=== PATIENT | male | born 1970 | race Caucasian/White ===

== ENCOUNTER 2017-04-28 10:29 | Emergency (ER) | payer OTHER ==
[~2017-04-28] VITALS: Ht 157.5 cm; Wt 54.0 kg
[~2017-04-28 10:29] MED LIST: ALBUTEROL SULF8.5 GM INH; ASACOL HD800 MG PO; ASMANEX220 MC1 IH; BENTYL10 MG PO; CITALOPRAM HBR40 MG PO; DICYCLOMINE HCL20 MG PO; FLUTICASONE PRO16 GM NAS; HYDROCODON-ACE1 EAC8 PO; LEVOTHYROXINE100 MCG PO; LEVOTHYROXINE125 MCG PO; LEVOTHYROXINE175 MCG PO; LEVOTHYROXINE200 MCG PO; LIALDA1.2 GM PO; LISINOPRIL-HCT1 EAC1 PO; MEDROL4 M1 PO; MONTELUKAST SOD10 MG PO; NAPROSYN500 MG PO; NORCO 10-325 T1 EACH PO; NORCO 5-325 TA1 EACH PO; OMEPRAZOLE20 MG PO; ONDANSETRON ODT8 MG PO; PERCOCET 10-321 EACH PO; PERCOCET 5-3251 EACH PO; PHENERGAN25 MG/1 M1 PO; PREDNISONE10 MG PO; PREDNISONE20 MG; PREDNISONE20 MG PO; PRILOSEC20 MG PO; PROMETHAZINE HC25 M1 PO; PROMETHAZINE HC25 MG PR; PROVENTIL HFA6.7 GM INH; ROPINIROLE HCL1 MG PO; SINGULAIR10 MG PO; SULFASALAZINE500 MG PO; SULFAZINE500 MG PO; SYMBICORT 80-10.2 GM INH; VALIUM2 MG PO; ZOFRAN ODT4 MG PO; ZOFRAN ODT4 MG SL; ZOFRAN ODT8 MG PO; ZOFRAN4 MG PO
[2017-04-28] MEDS ORDERED: PREDNISONE20 MG PO (13:48)
== END 2017-04-28 14:18 | disposition home or self-care (01) ==
LOC: ED 10:29
DX: K50.90 Crohn's disease, unspecified, without complications (principal); E03.9 Hypothyroidism, unspecified; J45.909 Unspecified asthma, uncomplicated; F41.9 Anxiety disorder, unspecified; Z90.49 Acquired absence of other specified parts of digestive tract; Z93.3 Colostomy status; Z88.5 Allergy status to narcotic agent; Z88.6 Allergy status to analgesic agent; Z79.899 Other long term (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
CPT/HCPCS: 80053; 81001; 83690; 85025; 96361; 96374; 96375; 99283; J1170; J2405; J2930; J7030

== ENCOUNTER 2017-06-18 08:29 | Emergency (ER) | payer OTHER ==
[~2017-06-18] VITALS: Ht 157.5 cm; Wt 54.0 kg
[2017-06-18] MEDS ORDERED: PREDNISONE20 MG PO (09:10)
[2017-06-18] MEDS ORDERED: PROMETHAZINE HC25 M1 PO (10:44)
[2017-06-18] MEDS ORDERED: ONDANSETRON ODT8 MG PO (10:44)
== END 2017-06-18 11:03 | disposition home or self-care (01) ==
LOC: ED 08:29
DX: K50.90 Crohn's disease, unspecified, without complications (principal); E03.9 Hypothyroidism, unspecified; J45.909 Unspecified asthma, uncomplicated; F41.9 Anxiety disorder, unspecified; Z90.49 Acquired absence of other specified parts of digestive tract; Z88.5 Allergy status to narcotic agent; Z88.6 Allergy status to analgesic agent; Z79.899 Other long term (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
CPT/HCPCS: 99283; J7512

== ENCOUNTER 2017-09-05 11:53 | Emergency (ER) | payer OTHER ==
[~2017-09-05] VITALS: Ht 157.5 cm; Wt 56.2 kg
[2017-09-05] MEDS ORDERED: METHYLPREDNISOLO4 M1 PO (13:37)
== END 2017-09-05 13:47 | disposition home or self-care (01) ==
LOC: ED 11:53
DX: K50.90 Crohn's disease, unspecified, without complications (principal); J45.909 Unspecified asthma, uncomplicated; E03.9 Hypothyroidism, unspecified; F41.9 Anxiety disorder, unspecified; Z87.891 Personal history of nicotine dependence; Z90.49 Acquired absence of other specified parts of digestive tract; Z88.5 Allergy status to narcotic agent; Z79.899 Other long term (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
CPT/HCPCS: 80053; 81001; 85025; 96361; 96374; 96375; 99283; J1170; J7030

== ENCOUNTER 2017-11-02 09:15 | Emergency (ER) | payer OTHER ==
[~2017-11-02] VITALS: Ht 157.5 cm; Wt 56.2 kg
[~2017-11-02 09:15] MED LIST changes: +METHYLPREDNISOLO4 M1 PO
[2017-11-02] MEDS ORDERED: BACTRIM DS TAB1 EACH PO (10:28)
[2017-11-02] MEDS ORDERED: METHYLPREDNISOLO4 M1 PO (10:28)
[2017-11-02] MEDS ORDERED: NORCO 10-325 T1 EACH PO (10:28)
== END 2017-11-02 11:13 | disposition home or self-care (01) ==
LOC: ED 09:15
DX: K50.90 Crohn's disease, unspecified, without complications (principal); E03.9 Hypothyroidism, unspecified; J45.909 Unspecified asthma, uncomplicated; F41.9 Anxiety disorder, unspecified; Z87.891 Personal history of nicotine dependence; Z88.6 Allergy status to analgesic agent; Z88.5 Allergy status to narcotic agent; Z79.899 Other long term (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
CPT/HCPCS: 80053; 81001; 85025; 96361; 96374; 96375; 99283; J1170; J2405; J2930; J7030

== ENCOUNTER 2018-01-12 06:11 | Emergency (ER) | payer OTHER ==
[~2018-01-12] VITALS: Ht 157.5 cm; Wt 54.4 kg
--- OUTSIDE RECORDS SUMMARY | ~2018-01-12 | XMS | Clinical Summary ---
Demographics + + + | Address | [address] | | | [place] [address] | + + + | Home Phone | | + + + | Preferred Language | Unknown | + + + | Marital Status | Single | + + + | Jain Affiliation | CHR | + + + | Race | White | + + + | Ethnic Group | Not or | + + + Author + + + | Author | [facility] | + + + | Organization | [facility] | + + + | Address | Unknown | + + + | Phone | Unavailable | + + + Support + + +---------+ + | Name | Relationship | Address | Phone | + + +---------+ + | Thalia Armani | ECON | Unknown | | + + +---------+ + Care Team Providers + +------+ + | Care It Support Consultant Name | Role | Phone | + +------+ + | Meaghan Zhong MD | PP | | + +------+ + Source Comments PAT is fully live on both [facility] and [facility]3] Allergies + + + + + + | Active Allergy | Reactions | Severity | Noted | Comments | | | | | Date | | + + + + + + | Ketorolac | Unknown | | 05/14/20 | "hurt for 2 weeks | | | | | 15 | afterwards" | + + + + + + | Morphine | Nausea and Vomiting | | 05/14/20 | shaking | | | | | 15 | | + + + + + + Current Medications + + +--------+---------+------+------+-------+ | Prescription | Sig. | Disp. | Refills | Star | End | Statu | | | | | | t | Date | s | | | | | | Date | | | + + +--------+---------+------+------+-------+ | albuterol (PROAIR | 2 puffs inhaled | | | 05/29 | | Activ | | HFA) 90 | every 4 hours as | | | 4/20 | | e | | mcg/actuation | needed for shortness | | | 12 | | | | inhalation HFA | of breath | | | | | | | aerosol inhaler | | | | | | | + + +--------+---------+------+------+-------+ | levothyroxine | Take by mouth. | | | | | Activ | | (SYNTHROID) 125 mcg | | | | | | e | | oral tablet | | | | | | | + + +--------+---------+------+------+-------+ | CITALOPRAM 40 mg | Take 40 mg by mouth | | 0 | 06/0 | | Activ | | oral tablet | once daily. | | | 03/17 | | e | | | | | | 15 | | | + + +--------+---------+------+------+-------+ | LEVOTHYROXINE 200 | Take 200 mcg by | | 0 | 08/0 | | Activ | | mcg oral tablet | mouth once daily. | | | 01/15 | | e | | | | | | 15 | | | + + +--------+---------+------+------+-------+ | mesalamine 1.2 g | Take 6 tablets by | 180 | 3 | 11/2 | | Activ | | oral tablet,delayed | mouth once daily. | tablet | | 10/17 | | e | | release (/ОЛЬГА) | | | | 16 | | | + + +--------+---------+------+------+-------+ | omeprazole 20 mg | Take 20 mg by mouth | | | | | Activ | | oral capsule,delayed | once daily. | | | | | e | | release(DR/EC) | | | | | | | + + +--------+---------+------+------+-------+ | promethazine 25 mg | Take 25 mg by mouth | | | | | Activ | | oral tablet | four times daily as | | | | | e | | | needed for | | | | | | | | nausea/vomiting. | | | | | | + + +--------+---------+------+------+-------+ | rOPINIRole 1 mg | Take 1 mg by mouth. | | | | | Activ | | oral tablet | | | | | | e | + + +--------+---------+------+------+-------+ Active Problems + + + | Problem | Noted Date | + + + | Encounter for long-term (current) use of medications | 12/06/2015 | + + + | CD (Crohn's disease) ([facility]) | 05/14/2015 | + + + | Acid reflux | 05/14/2015 | + + + Resolved Problems + + + + | Problem | Noted | Resolved | | | Date | Date | + + + + | Encounter for long-term (current) use of steroids | 06/21/20 | | | | 14 | 6 | + + + + Family History + + +------+ + | Medical History | Relation | Name | Comments | + + +------+ + | Cancer | Father | | prostate cancer at age 62 | + + +------+ + | Asthma | Mother | | | + + +------+ + | Cancer | Mother | | colon cancer at age 62 | + + +------+ + | Stroke | Mother | | | + + +------+ + | Thyroid | Mother | | hypothyroid | + + +------+ + | GI | Other | | no Crohn's or ulcerative colitis | + + +------+ + + +------+--------+ + | Relation | Name | Status | Comments | + +------+--------+ + | Father | | | | + +------+--------+ + | Mother | | | | + +------+--------+ + | Other | | | | + +------+--------+ + Social History + + + +--------+------+ [...] + | Blood Pressure | 125/76 | 01/26/2017 3:17 PM PDT | + + + + | Pulse | 64 | 01/26/2017 3:17 PM PDT | + + + + | Temperature | 36.6 C (97.8 F) | 01/26/2017 3:17 PM PDT | + + + + | Respiratory Rate | 16 | 01/26/2017 3:17 PM PDT | + + + + | Oxygen Saturation | 96% | 12/06/2015 12:16 PM PST | + + + + | Inhaled Oxygen | - | - | | Concentration | | | + + + + | Weight | 56.3 kg (124 lb 3.2 | 01/26/2017 3:17 PM PDT | | | oz) | | + + + + | Height | 157.5 cm (5' 2") | 01/26/2017 3:17 PM PDT | + + + + | Body Mass Index | 22.72 | 01/26/2017 3:17 PM PDT | + + + + Plan of Treatment + + + + + | Health Maintenance | Due Date | Last Done | Comments | + + + + + | INFLUENZA VACCINE | | | | | (FLU SHOT) | 8 | | | + + + + + Results Not on filefrom Last 3 Months
--- OUTSIDE RECORDS SUMMARY | ~2018-01-12 | XMS | Clinical Summary ---
Demographics + + + | Address | [address] | | | [place] [address] | + + + | Home Phone [...] + + + | Author | [facility] [place] | | | and [place] | + + + | Organization | [facility] [place] [...] Providers + +------+ + | Care Manager Lvn Name | Role | Phone | + +------+ + | Emily Green DO | PP | Unavailable | + +------+ + Allergies + + [...] + + + Current Medications + + +---------+---------+------+------+-------+ | Prescription | Sig. | Disp. | Refills | Star | End | Statu | | | | | | t | Date | s | | | | | | Date | | | + + +---------+---------+------+------+-------+ | albuterol (PROAIR | 2 puffs inhaled | | | 05/29 | | Activ | | HFA) 90 mcg/puff | every 4 hours as | | | 01/15 | | e | | inhaler | needed for shortness | | | 12 | | | | | of breath | | | | | | + + +---------+---------+------+------+-------+ | levothyroxine | Take 300 mcg by | | | | | Activ | | (SYNTHROID) 125 mcg | mouth every morning | | | | | e | | tablet | (before breakfast). | | | | | | + + +---------+---------+------+------+-------+ | oxyCODONE | Take 10 mg by mouth | | | | | Activ | | (ROXICODONE) 5 mg | every 4 hours as | | | | | e | | tablet | needed for Pain. | | | | | | + + +---------+---------+------+------+-------+ | ondansetron | Take 8 mg by mouth | | | | | Activ | | (ZOFRAN ODT) 8 mg | every 8 hours as | | | | | e | | disintegrating | needed. | | | | | | | tablet | | | | | | | + + +---------+---------+------+------+-------+ | citalopram | Take 40 mg by mouth | | | | | Activ | | (CELEXA) 40 mg | Daily. | | | | | e | | tablet | | | | | | | + + +---------+---------+------+------+-------+ | mesalamine | Take 1,200 mg by | | | | | Activ | | (LIALDA) 1.2 G EC | mouth 2 times daily. | | | | | e | | tablet | | | | | | | + + +---------+---------+------+------+-------+ | rOPINIrole | Take 5 mg by mouth | | | | | Activ | | (REQUIP) 5 MG tablet | nightly. | | | | | e | + + +---------+---------+------+------+-------+ | omeprazole | Take 1 capsule by | 90 | 3 | 07/1 | 07/1 | Activ | | (PRILOSEC) 20 mg | mouth every morning | capsule | | 0/20 | 0/20 | e | | capsule | (before breakfast). 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 | 06/21/2014 [...] + + + + | Name | Dates Previously Given | Next Due | + + + + | INFLUENZA PF | 08/19/2016 | | | QUAD(PED/ADOL/ADULT) | | | | ,PSKT or VIAL | | | + + + + | INFLUENZA PF | 08/21/2008 | | | TRIVALENT(PED/ADOL/A | | | | DULT), PSKT | | | + + + + [...] | Blood Pressure | 98/70 | 12/10/2016 1305 PDT | + + + + | Pulse | 74 | 12/10/2016 1305 PDT | + + + + | Temperature | 36.4 C (97.5 F) | 04/09/2016 1031 PDT | + + + + | Respiratory Rate | 16 | 12/10/2016 1305 PDT | + + + + | Oxygen Saturation | 98% | 12/10/20161304 PDT | + + + + | Inhaled Oxygen | - | - | | Concentration | | | + + + + | Weight | 53.9 kg (118 lb 13.3 | 12/10/20161304 PDT | | | oz) | | + + + + | Height | 160 cm (5' 2.99") | 12/10/20161304 PDT | + + + + | Body Mass Index | 21.06 | 12/10/20161304 PDT | + + + + Plan of Treatment + + + + + | Health Maintenance | Due Date | Last Done | Comments | + + + + + | Vaccine: | | | | | Dtap/Tdap/Td (1 - | 9 | | | | Tdap) | | | | + + + + + | Vaccine: Influenza | | 08/19/2016, 08/14/2015, | | | (Season Ended) | 8 | 07/03/2015, Additional history | | | | | exists | | + + + + + | Vaccine: | Completed | 07/03/2015 | | | Pneumococcal 19-64 | | | | | (PPSV23 only) Medium | | | | | Risk | | | | + + + + + Results Not on filefrom Last 3 Months Insurance + +--------+ +--------+ +---------+ | Payer | Benefi | Subscriber | Type | Phone | Address | | | t Plan | ID | | | | | | / | | | | | | | Group | | | | | + +--------+ +--------+ +---------+ | [employer] | MODA | [phone] | Medica | [phone] | | MEDICAID HMO | HEALTH | | id | [id number] | | | | MDCD | | | | | | | [place]MO [place] | | | | | + +--------+ +--------+ +---------+ + +--------+ +--------+ + + | Guarantor Name | Accoun | Relation to | Date | Phone | Billing Address | | | t Type | Patient | of | | | | | | | | | | + +--------+ +--------+ + + | RACHID BANGURA | Person | Self [birth year] | Home: | [address] | | [place] | [place] | | 1971 | [phone] | [place] [address] | | | david | | | [phone] | | + +--------+ +--------+ + +
--- OUTSIDE RECORDS SUMMARY | ~2018-01-12 | XMS | Clinical Summary ---
Demographics + + + | Address | [address] | | | [place] [address] | + + + | Home Phone | | + + + | Preferred Language | Unknown | + + + | Marital Status | Single | + + + | Baptism Affiliation | 1013 | + + + | Race | Unknown | + + + | Ethnic Group | Unknown | + + + Author + + + | Author | [facility] [employer] | + + + | Organization | [facility] [employer] [facility] | + + + | Address | Unknown | + + + | Phone | Unavailable | + + + Support + + +---------+ + | Name | Relationship | Address | Phone | + + +---------+ + | Thalia Lomeli | ECON | Unknown | | + + +---------+ + Care Team Providers + +------+ + | Care Floor Hand Name | Role | Phone | + [...] +------+-------+ + | MEDICAID | [place] | xxxxxxxx | | | [address] | | | N | | | | [place] | | | [place] | | | | [phone] | | | FURNACE COMBUSTION ANALYST | | | | | + +--------+ [...] | Self | [birth year] | Home: | [address] [facility] [address] | | | [place] | | 1971 | [phone] | [place] [address] | | | david | | | [phone] | | + +--------+ +--------+ + +
--- OUTSIDE RECORDS SUMMARY | ~2018-01-12 | XMS | Clinical Summary ---
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
--- OUTSIDE RECORDS SUMMARY | ~2018-01-12 | XMS | Clinical Summary ---
Demographics + + + | Address | [address] | | | [place] [address] | + + + | Home Phone [...] + + + | Author | [facility] [employer] | + + + | Organization | [facility] [employer] | + + + | Address | Unknown | + + + | Phone | Unavailable | + + + Support + + +---------+ + | Name | Relationship | Address | Phone | + + +---------+ + | Thalia Lomeli | ECON | Unknown | | + + +---------+ + Care Team Providers + +------+ + | Care Car Trimmer Name | Role | Phone | [...] | | [place] | | | | [phone] | | | CHIEF METEOROLOGIST | | | | | + +--------+ [...] | Self | [birth year] | Home: | [facility] [address] | | | [place] | | 1971 | [phone] | [place] [address] | | | david | | | [phone] | | + +--------+ +--------+ + +
--- OUTSIDE RECORDS SUMMARY | ~2018-01-12 | XMS | Clinical Summary ---
Demographics + + + | Address | [address] | | | [place] [address] | + + + | Home Phone | | + + + | Preferred Language | Unknown | + + + | Marital Status | Single | + + + | Spiritism Affiliation | CHR | + + + [...] Providers + +------+ + | Care Wire Frame Maker Name | Role | Phone | + +------+ + | Meaghan Zhong MD | PP | | + +------+ + Source Comments PAT is fully live on both [facility] and [facility] Allergies + + + + [...] + + + | CD (Crohn's disease) ([facility]) | 05/14/2015 | + + + | [...]
[~2018-01-12 06:11] MED LIST changes: +BACTRIM DS TAB1 EACH PO
--- NOTE | 2018-01-12 07:11 | NUR ---
CHW met with patient in ED Room#2. Patient stated his last PCP was Dr Ramirez who is now retired and the clinic has stated he is not assigned to anyone else in the clinic. Per [facility] website patient is assigned to Dr Hays. Per clinic just because a patient is assigned does not guarantee the physician will take on the patient as a PCP. CHW stated she will help patient work with [facility] Dr [facility]ccorm[facility] office [facility]. Patient was very happy with that and would like to happen as soon as possible due to his medications not being provided to him from the pharmacy. Patient stated he is also working with [facility] and they were supposed to help him find a PCP as well. CHW will work with patient to find a PCP and be in contact with patient.
[2018-01-12] MEDS ORDERED: PREDNISONE20 MG PO (09:09)
== END 2018-01-12 09:45 | disposition home or self-care (01) ==
LOC: ED 06:11
DX: R10.84 Generalized abdominal pain (principal); E03.9 Hypothyroidism, unspecified; F41.9 Anxiety disorder, unspecified; Z87.891 Personal history of nicotine dependence; Z88.6 Allergy status to analgesic agent; Z88.5 Allergy status to narcotic agent; Z79.899 Other long term (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
CPT/HCPCS: 76705; 80053; 81001; 83690; 85025; 96374; 96375; 99284; J1170; J2405; J2930; J7030

== ENCOUNTER 2018-02-16 09:56 | Emergency (ER) | payer OTHER ==
[~2018-02-16] VITALS: Ht 157.5 cm; Wt 52.6 kg
== END 2018-02-16 12:50 | disposition left against medical advice (07) ==
LOC: ED 09:56
DX: K50.90 Crohn's disease, unspecified, without complications (principal); Z87.891 Personal history of nicotine dependence; Z88.6 Allergy status to analgesic agent; Z88.5 Allergy status to narcotic agent
CPT/HCPCS: 80053; 81001; 83690; 84443; 85025; 96374; 96375; 99283; J2405; J3010; J7120

== ENCOUNTER 2018-03-24 08:50 | Emergency (ER) | payer OTHER ==
[~2018-03-24] VITALS: Ht 157.5 cm; Wt 60.8 kg
[2018-03-24] MEDS ORDERED: LEVOTHYROXINE125 MCG PO (09:03)
[2018-03-24] MEDS ORDERED: ONDANSETRON ODT8 MG PO ×2 (09:04→10:11)
--- NOTE | 2018-03-24 10:04 | NUR ---
CHW met with patient in ED room. CHW discussed with patient that PCP office stated that patient no showed to apt on 03/16/18 and that the PCP office is trying to get ahold of patient in regards to setting up an appointment with the pain clinic and they have not been able to get ahold of patient. CHW stated to contact PCP office to get the pain clinic established. Patient stated he would call them back. CHW reiterated that chronic pain can't be managed with pain medications in the ED and that follow up care with PCP is needed.
== END 2018-03-24 10:20 | disposition home or self-care (01) ==
LOC: ED 08:50
DX: R10.13 Epigastric pain (principal); G89.29 Other chronic pain; R11.2 Nausea with vomiting, unspecified; E03.9 Hypothyroidism, unspecified; J45.909 Unspecified asthma, uncomplicated; F41.9 Anxiety disorder, unspecified; Z87.891 Personal history of nicotine dependence; Z88.6 Allergy status to analgesic agent; Z88.5 Allergy status to narcotic agent; Z79.899 Other long term (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
CPT/HCPCS: 80053; 81001; 85025; 96361; 96374; 96375; 99283; J2405; J2550; J7030

== ENCOUNTER 2019-09-03 15:00 | Emergency (ER) | payer OTHER ==
[~2019-09-03] VITALS: Ht 157.5 cm; Wt 60.8 kg
--- OUTSIDE RECORDS SUMMARY | ~2019-09-03 | XMS | Encounter Summary ---
Demographics + + + | Address | [address] | | | [place] [address] | + + + | Home Phone | | + + + | Preferred Language | Unknown | + + + | Marital Status | Single | + + + | Worship Affiliation | 1013 | + + + | Race | Unknown | + + + | Ethnic Group | Unknown | + + + Author + + + | Author | [facility] [place] | | | and [place] | + + + | Organization | [facility] | | | and [place] | + + + | Address | Unknown | + + + | Phone | Unavailable | + + + Support + + +---------+ + | Name | Relationship | Address | Phone | + + +---------+ + | Elena Lomeli | ECON | Unknown | | + + +---------+ + Care Team Providers + +------+ + | Care Advisory Services Associate Name | Role | Phone | + +------+ + PCP | Unavailable | + +------+ + Encounter Details +--------+ + + + + | Date | Type | Department | Care Team | Description | +--------+ + + + + | 09/16/ | Hospital | [facility] | Meaghan Zhong | | | 2010 | Encounter | [facility] | [address] | | | | | [address] [place] | [address] [facility], | | | | | [facility], [place] | [place] [address] | | | | | [address] | [phone] | | | | | [phone] | | | +--------+ + + + + Social History + +-------+ +--------+------+ | Tobacco Use | Types | Packs/Day | Years | Date | | | | | Used | | + +-------+ +--------+------+ | Never Assessed | | | | | + +-------+ +--------+------+ + + + | Sex Assigned at | Date Recorded | | | | + + + | Not on file | | + + + + + + + | Job Start Date | Occupation | Industry | + + + + | Not on file | Not on file | Not on file | + + + + + + + + | Travel History | Travel Start | Travel End | + + + + + + | No recent travel history available. | + + documented as of this encounter Plan of Treatment Not on filedocumented as of this encounter Visit Diagnoses Not on filedocumented in this encounter"
--- OUTSIDE RECORDS SUMMARY | ~2019-09-03 | XMS | Encounter Summary ---
Demographics + + + | Address | [address] | | | [place] [address] | + + + | Home Phone | | + + + | Preferred Language | Unknown | + + + | Marital Status | Single | + + + | Hoahaoism Affiliation | 1013 | + + + | Race | Unknown | + + + | Ethnic Group | Unknown | + + + Author + + + | Author | [facility] | | | and [place] | + + + | Organization | [facility] | | | and [place] [...] Team Providers + +------+ + | Care Cable Television Program Director Name | Role | Phone | + +------+ + | No, Physician | PCP | Unavailable | + +------+ + Encounter Details +--------+ + + + + | Date | Type | Department | Care Team | Description | +--------+ + + + + | 07/17/ | Hospital | [facility] [facility] | Emily Green, | | | 2014 | Encounter | [facility] [address] | DO [address] | | | | | [address] [place] | [place] [address] | | | | | [place], [place] | [phone] | | | | | [address] | | | | | | [phone] | | | +--------+ + + + + Social History + + + +--------+ + | Tobacco Use | Types | Packs/Day | Years | Date | | | | | Used | | + + + +--------+ + | Former Smoker | Cigarettes | 0.25 | 10 | Quit: 09/28/1992 | + + + +--------+ + + +------+---+---+ | Smokeless Tobacco: | Chew | | | | Current User | | | | + +------+---+---+ + + +---------+ + | Alcohol Use [...] + + documented as of this encounter Functional Status + + + + | Functional Status | Response | Date of Assessment | + + + + | Are you deaf or do you have serious | No | 11/16/2014 | | difficulty hearing? | | | + + + + | Are you blind or do you have serious | No | 11/16/2014 | | difficulty seeing, even when wearing | | | | glasses? | | | + + + + | Do you have serious difficulty walking or | No | 11/16/2014 | | climbing stairs? (5 years old or older) | | | + + + + | Do you have difficulty dressing or bathing? | No | 11/16/2014 | | (5 years old or older) | | | + + + + | Because of a physical, mental, or emotional | No | 11/16/2014 | | condition, do you have difficulty doing | | | | errands alone such as visiting a doctor's | | | | office or shopping? [15 years old or | | | | older)] | | | + + + + + + + + | Cognitive Status | Response | Date of Assessment | + + + + | Because of a physical, mental, or emotional | No | 11/16/2014 | | condition, do you have serious difficulty | | | | concentrating, remembering, or making | | | | decisions? (5 years old or older) | | | + + + + documented as of this encounter Medications at Time of Discharge + + + +---------+ + + | Medication | Sig | Dispensed | Refills | Start | End Date | | | | | | Date | | + + + +---------+ + + | albuterol (PROAIR | 2 puffs inhaled | | 0 | 06/11/20 | | | HFA) 90 mcg/puff | every 4 hours as | | | 12 | | | inhaler | needed for shortness | | | | | | | of breath | | | | | + + + +---------+ + + | levothyroxine | Take 300 mcg by | | 0 | | | | (SYNTHROID) 125 mcg | mouth every morning | | | | | | tablet | (before breakfast). | | | | | + + + +---------+ + + | ondansetron | Take 8 mg by mouth | | 0 | | | | (ZOFRAN ODT) 8 mg | every 8 hours as | | | | | | disintegrating | needed. | | | | | | tablet | | | | | | + + + +---------+ + + | oxyCODONE | Take 10 mg by mouth | | 0 | | | | (ROXICODONE) 5 mg | every 4 hours as | | | | | | tablet | needed for Pain. | | | | | + + + +---------+ + + | | 1 to 2 caps by mouth | | 0 | 06/11/20 | | | clidinium-chlordiaze | four times a day | | | 12 | 6 | | POXIDE (LIBRAX) | | | | | | | 2.5-5 mg per capsule | | | | | | + + + +---------+ + + | mesalamine | Place 60 mLs | 30 each | 2 | 11/16/19 | | | (ROWASA) 4 g/60 mL | rectally nightly. | | | 15 | 6 | | KIT | | | | | | + + + +---------+ + + | sulfaSALAzine | Take three by mouth | | 0 | 06/11/20 | | | (AZULFIDINE) 500 mg | twice daily | | | 12 | 6 | | tablet | | | | | | + + + +---------+ + + documented as of this encounter Plan of Treatment Not on filedocumented as of this encounter Procedures + +--------+ + + + | Procedure Name | Priori | Date/Time | Associated Diagnosis | Comments | | | ty | | | | + +--------+ + + + | BONE DENSITY STUDY, | Routin | 07/17/2015 | | Results for this | | DXA | e | 3:28 PM | | procedure are in the | | | | PDT | | results section. | + +--------+ + + + documented in this encounter Results BONE DENSITY STUDY, DXA (07/17/2015 3:28 PM PDT) + + | Specimen | + + | | + + + + + | Narrative | Performed At | + + + | ORIGINAL DEXASCAN: HISTORY: Evaluate bone | | | mineral density. Long-term steroid use. COMPARISON: None. | | | FINDINGS: Left femoral neck bone mineral density measures 0.927 | | | gm/cm2 for a T score of -1.1, L1 to L4 lumbar spine bone mineral | | | density measures 1.041 gm/cm2 for a T score of -1.5. FRAX 10-year | | | probability of a major osteoporotic or hip fracture based on femoral | | | neck bone mineral density is 4.0 % and 0.4 %. IMPRESSION: | | | Osteopenia. Fracture risk is moderate. Job #: | | | [id number] Read By: JEOVANY MIERLES MD Released By: JEOVANY Gauthier | | MD [facility] Date: 07/17/2015 18:04 | | + + + + + | Procedure Note | + + | Guru Meneses Results In - 08/05/2017 8:40 PM PST ORIGINAL DEXASCAN: | | HISTORY:Evaluate bone mineral density. Long-term steroid use. COMPARISON:None. | | FINDINGS:Left femoral neck bone mineral density measures 0.927 gm/cm2 for a T score of | | -1.1, L1 to L4 lumbar spine bone mineral density measures 1.041 gm/cm2 for a T score of | | -1.5. FRAX 10-year probability of a major osteoporotic or hip fracture based on femoral | | neck bone mineral density is 4.0 % and 0.4 %. IMPRESSION:Osteopenia. Fracture risk is | | moderate. Job #: [id number] Read By: JEOVANY MIRELES MD Released By: | | JEOVANY MIRELES MDDate: 07/17/2015 18:04 | | | |COMPARISON: | |None. | | | |FINDINGS: | |Left femoral neck bone mineral density measures 0.927 gm/cm2 for a T score of -1.1, L1 to L 4 lumbar spine bone mineral density measures 1.041 gm/cm2 for a T score of -1.5. | | | |FRAX 10-year probability of a major osteoporotic or hip fracture based on femoral neck bone mineral density is 4.0 % and 0.4 %. | | | |IMPRESSION: | |Osteopenia. Fracture risk is moderate. | | | | | | | | | |Read By: JEOVANY MIRELES MD | | | |Released By: JEOVANY MIRELES MD | |Date: 07/17/2015 18:04 | | | | | + + documented in this encounter Visit Diagnoses Not on filedocumented in this encounter"
--- OUTSIDE RECORDS SUMMARY | ~2019-09-03 | XMS | Encounter Summary ---
Demographics + + + | Address | [address] | | | [place] [address] | + + + | Home Phone | | + + + | Preferred Language | Unknown | + + + | Marital Status | Single | + + + | Sikh Affiliation | 1013 | + + + | Race | Unknown | + + + | Ethnic Group | Unknown | + + + Author + + + | Author | [facility] | | | and [place] | + + + | Organization | [facility] | | | and [place] [...] Team Providers + +------+ + | Care Grease Cup Filler Name | Role | Phone | + +------+ + PCP | Unavailable | + +------+ + Encounter Details +--------+ + + + + | Date | Type | Department | Care Team | Description | +--------+ + + + + | 02/22/ | Hospital | [facility] | Meaghan Zhong | | | 2009 | Encounter | HOSPITAL LAB[facility]ATORY | [address] | | | | | [address] [place] | [address] [facility], | | | | | [facility], [place] | [place] [address] | | | | | [address] | [phone] | | | | | [phone] | | | +--------+ + + + [...]
--- OUTSIDE RECORDS SUMMARY | ~2019-09-03 | XMS | Encounter Summary ---
Demographics + + + | Address | [address] | | | [place] [address] | + + + | Home Phone | | + + + | Preferred Language | Unknown | + + + | Marital Status | Single | + + + | Alevism Affiliation | CHR | + + + | Race | White | + + + | Ethnic Group | Not or | + + + Author + + + | Author | [facility] | + + + | Organization | [facility] | + + + | Address | Unknown | + + + | Phone | Unavailable | + + + Support + + +---------+ + | Name | Relationship | Address | Phone | + + +---------+ + | Thalia Armani | ECON | Unknown | | + + +---------+ + Care Team Providers + +------+ + | Care Machinist Helper Marine Name | Role | Phone | + +------+ + | Meaghan Zhong MD | PCP | | + +------+ + Reason for Visit + + + | Reason | Comments | + + + | Insurance | Benji HAIDER approval - [id number] | | Authorization | | + + + Encounter Details +--------+ + + + + | Date | Type | Department | Care Team | Description | +--------+ + + + + | 05/18/ | Abstract | [facility] | [address], | Insurance | | 2014 | | Center at [facility] [address] | MD | Authorization | | | | ADONAY Boone | | (Benji HAIDER approval | | | | Mailcode: Center | | - [facility]) | | | | for Health and | | | | | | [facility], [facility] [address] | | | | | | [place], [place] | | | | | | [address] | | | | | | [phone] | | | +--------+ + + + [...]
--- OUTSIDE RECORDS SUMMARY | ~2019-09-03 | XMS | Encounter Summary ---
Demographics + + + | Address | [address] | | | [place] [address] | + + + | Home Phone | | + + + | Preferred Language | Unknown | + + + | Marital Status | Single | + + + | Christianity Affiliation | CHR | + + + | Race | White | + + + | Ethnic Group | Not or | + + + Author + + + | Author | [facility] | + + + | Organization | [facility] | + + + | Address | Unknown | + + + | Phone | Unavailable | + + + Support + + +---------+ + | Name | Relationship | Address | Phone | + + +---------+ + | Thalia Armani | ECON | Unknown | | + + +---------+ + Care Team Providers + +------+ + | Care Petroleum Refining Equipment Operator Name | Role | Phone | + +------+ + | Meaghan Zhong MD | PCP | | + +------+ + Reason for Visit + + + | Reason | Comments | + + + | Medication Question | | + + + Encounter Details +--------+ + + + + | Date | Type | Department | Care Team | Description | +--------+ + + + + | 12/12/ | Telephone | [facility] | [address], | Medication Question | | 2015 | | [place] [address] | MD | | | | | ADONAY Haasalvin | | | | | | Mailcode: [place] | | | | | | [facility] and | | | | | | [place], [facility] [address] | | | | | | [place], [place] | | | | | | [address] | | | | | | [phone] | | | +--------+ + + + [...]
--- OUTSIDE RECORDS SUMMARY | ~2019-09-03 | XMS | Encounter Summary ---
Demographics + + + | Address | [address] | | | [place] [address] | + + + | Home Phone | | + + + | Preferred Language | Unknown | + + + | Marital Status | Single | + + + | Jehovah'S Witness Affiliation | 1013 | + + + | Race | Unknown | + + + | Ethnic Group | Unknown | + + + Author + + + | Author | [facility] | | | and [place] | + + + | Organization | [facility] | | | and [place] | + + + | Address | Unknown | + + + | Phone | Unavailable | + + + Support + + +---------+ + | Name | Relationship | Address | Phone | + + +---------+ + | Eelna Lomeli | ECON | Unknown | | + + +---------+ + Care Team Providers + +------+ + | Care Material Requisitioner Name | Role | Phone | + +------+ + | No, Physician | PCP | Unavailable | + +------+ + Encounter Details +--------+ + + + + | Date | Type | Department | Care Team | Description | +--------+ + + + + | 08/05/ | Hospital | [facility] | [facility] Stewart | | | 2013 | Encounter | HOSPITAL EMERGENCY | [address] | | | | | [address] | [address] | | | | | [address] [place], [place] | [place] [address] | | | | | [address] | [phone] | | | | | [phone] | | | +--------+ + + + + Social History + +-------+ +--------+------+ | Tobacco Use | Types | Packs/Day | Years | Date | | | | | Used | | + +-------+ +--------+------+ | Former Smoker | | | | | + +-------+ +--------+------+ + +------+---+---+ | Smokeless Tobacco: | Chew [...] + + +---------+ + + | | Take 1 tablet by | | 0 | | | | HYDROcodone-acetamin | mouth every 6 hours | | | | 5 | | ophen (NORCO) 5-325 | as needed. | | | | | | mg per tablet | | | | | | + + + +---------+ + + | montelukast | Take 10 mg by mouth | | 0 | | | | (SINGULAIR) 10 mg | nightly. | | | | 5 | | tablet | | | | | | + + + +---------+ + + | omeprazole | Take 20 mg by mouth | | 0 | 06/11/20 | | | (PRILOSEC) 20 mg | Daily. | | | 12 | 5 | | TBEC | | | | | | + + + +---------+ + + | predniSONE | Take 3 tablets by | 80 | 0 | 03/22/20 | | | (DELTASONE) 10 mg | mouth Daily. | tablet | | 14 | 5 | | tablet | | | | | | + + + +---------+ + + | PREDNISONE | by Does not apply | | 0 | | | | | route. Take as | | | | 5 | | | directed | | | | | + + [...]
--- OUTSIDE RECORDS SUMMARY | ~2019-09-03 | XMS | Clinical Summary ---
Demographics + + + | Address | [address] | | | [place] [address] | + + + | Home Phone | | + + + | Preferred Language | Unknown | + + + | Marital Status | Single | + + + | Evangelical Affiliation | 1013 | + + + | Race | Unknown | + + + | Ethnic Group | Unknown | + + + Author + + + | Author | [facility] (Historical as of | | | 05-14-19) | + + + | Organization | [facility] (Historical as of | | | 05-14-19) | + + + | Address | Unknown | + + + | Phone | Unavailable | + + + Support + + +---------+ + | Name | Relationship | Address | Phone | + + +---------+ + | Thalia Lomeli | ECON | Unknown | | + + +---------+ + Care Team Providers + +------+ + | Care Laundry Aid Name | Role | Phone | + +------+ + | Emily Green DO | PP | | + +------+ + Allergies + + + + + + | Active Allergy | Reactions | Severity | Noted | Comments | | | | | Date | | + + + + + + | Morphine | Abdominal Pain | Low | 11/18/19 | | | | | | 16 | | + + + + + + | Ketorolac | Other (See Comments) | Medium | 11/18/19 | Pt states the IM | | | | | 16 | injection "hurts for | | | | | | two weeks" | + + + + + + Current Medications + + +-------+---------+------+------+-------+ | Prescription | Sig. | Disp. | Refills | Star | End | Statu | | | | | | t | Date | s | | | | | | Date | | | + + +-------+---------+------+------+-------+ | | Take 1 tablet by | | | | | Activ | | HYDROcodone-acetamin | mouth every 6 (six) | | | | | e | | ophen (NORCO) 10-325 | hours as needed for | | | | | | | MG per tablet | Pain. | | | | | | + + +-------+---------+------+------+-------+ | ondansetron | Take 8 mg by mouth | | | | | Activ | | (ZOFRAN) 8 MG tablet | every 8 (eight) | | | | | e | | | hours as needed for | | | | | | | | Nausea. | | | | | | + + +-------+---------+------+------+-------+ | | Inhale 2 puffs into | | | | | Activ | | ipratropium-albutero | the lungs every 6 | | | | | e | | l (COMBIVENT) 18-103 | (six) hours as | | | | | | | MCG/ACT inhaler | needed for Wheezing. | | | | | | + + +-------+---------+------+------+-------+ | levothyroxine | Take 175 mcg by | | | | | Activ | | (SYNTHROID) 175 MCG | mouth every morning | | | | | e | | tablet | before breakfast. | | | | | | + + +-------+---------+------+------+-------+ | citalopram | Take 20 mg by mouth | | | | | Activ | | (CELEXA) 20 MG | every morning. | | | | | e | | tablet | | | | | | | + + +-------+---------+------+------+-------+ Active Problems Not on file Social History + +-------+ +--------+------+ | Tobacco Use | Types | Packs/Day | Years | Date | | | | | Used | | + +-------+ +--------+------+ | Never Smoker | | | | | + +-------+ +--------+------+ + +---+---+---+ | Smokeless Tobacco: | | | | | Current User | | | | + +---+---+---+ + + +---------+ + | Alcohol Use | Drinks/We | oz/Week | Comments | | | ek | | | + + +---------+ + | No | | | | + + +---------+ + + + + | Sex Assigned at | Date Recorded | | | | + + + | Not on file | | + + + Last Filed Vital Signs + + + + | Vital Sign | Reading | Time Taken | + + + + | Blood Pressure | 125/76 | 11/30/2015 11:39 PM PST | + + + + | Pulse | 49 | 11/30/2015 11:39 PM PST | + + + + | Temperature | 36.7 C (98 F) | 11/30/2015 10:27 PM PST | + + + + | Respiratory Rate | 16 | 11/30/2015 11:39 PM PST | + + + + | Oxygen Saturation | 96% | 11/30/2015 11:39 PM PST | + + + + | Inhaled Oxygen | - | - | | Concentration | | | + + + + | Weight | 59 kg (130 lb 1.1 | 11/30/2015 10:27 PM PST | | | oz) | | + + + + | Height | 157.5 cm (5' 2") | 11/30/2015 10:27 PM PST | + + + + | Body Mass Index | 23.79 | 11/30/2015 10:27 PM PST | + + + + Plan of Treatment Not on file Results Not on filefrom Last 3 Months Insurance + +--------+ +------+-------+ + | Payer | Benefi | Subscriber | Type | Phone | Address | | | t Plan | ID | | | | | | / | | | | | | | Group | | | | | + +--------+ +------+-------+ + | MEDICAID | [place] | [id number] | | | [address] | | | [place] | | | | [place] | | | [place] | | | | [address] | | | [employer] | | | | | + +--------+ +------+-------+ + + +--------+ +--------+ + + | Guarantor Name | Accoun | Relation to | Date | Phone | Billing Address | | | t Type | Patient | of | | | | | | | | | | + +--------+ +--------+ + + | RACHID BANGURA | Person | Self [birth year] | Home: | [address] | | | al/Fam | | 1971 | [phone] | [place] [address] | | | david | | | [phone] | | + +--------+ +--------+ + +
--- OUTSIDE RECORDS SUMMARY | ~2019-09-03 | XMS | Encounter Summary ---
Demographics + + + | Address | [address] | | | [place] [address] | + + + | Home Phone | | + + + | Preferred Language | Unknown | + + + | Marital Status | Single | + + + | Adventism Affiliation | CHR | + + + | Race | White | + + + | Ethnic Group | Not or | + + + Author + + + | Author | [facility] | + + + | Organization | [facility] | + + + | Address | Unknown | + + + | Phone | Unavailable | + + + Support + + +---------+ + | Name | Relationship | Address | Phone | + + +---------+ + | Thalia Armani | ECON | Unknown | | + + +---------+ + Care Team Providers + +------+ + | Care Equal Opportunity Officer Name | Role | Phone | + +------+ + | Meaghan Zhong MD | PCP | | + +------+ + Reason for Visit + + + | Reason | Comments | + + + | Blood Test Results | Multiple dates - [facility] | + + + Encounter Details +--------+ + + + + | Date | Type | Department | Care Team | Description | +--------+ + + + + | 12/11/ | Documentati | [facility] | [address], | Blood Test Results | | 2015 | on | Center at [facility] [address] | MD | (Multiple dates - | | | | [address] | | [facility] | | | | Mailcode: [place] | | [facility]) | | | | for Health and | | | | | | [facility], [place] [address] | | | | | | [place], [place] | | | | | | [address] | | | | | | [phone] | | | +--------+ + + + [...] | + +--------+ + + + | CBC, WITH | Routin | 12/11/2015 | | Results for this | | DIFFERENTIAL | e | 10:05 AM | | procedure are in the | | | | PDT | | results section. | + +--------+ + + + | COMPLETE METABOLIC | Routin | 12/11/2015 | | Results for this | | SET | e | 10:05 AM | | procedure are in the | | (NA,K,CL,CO2,BUN,CRE | | PDT | | results section. | | AT,GLUC,CA,AST,ALT,B | | | | | | MARLIN TOTAL,ALK | | | | | | PHOS,ALB,PROT TOTAL) | | | | | + +--------+ + + + | COMPLETE METABOLIC | Routin | 09/13/2015 | | Results for this | | SET | e | 10:46 AM | | procedure are in the | | (NA,K,CL,CO2,BUN,CRE | | PST | | results section. | | AT,GLUC,CA,AST,ALT,B | | | | | | MARLIN TOTAL,ALK | | | | | | PHOS,ALB,PROT TOTAL) | | | | | + +--------+ + + + | CBC, WITH | Routin | 07/03/2015 | | Results for this | | DIFFERENTIAL | e | 11:46 AM | | procedure are in the | | | | PDT | | results section. | + +--------+ + + + | COMPLETE METABOLIC | Routin | 07/03/2015 | | Results for this | | SET | e | 11:46 AM | | procedure are in the | | (NA,K,CL,CO2,BUN,CRE | | PDT | | results section. | | AT,GLUC,CA,AST,ALT,B | | | | | | MARLIN TOTAL,ALK | | | | | | PHOS,ALB,PROT TOTAL) | | | | | + +--------+ + + + | FERRITIN | Routin | 07/03/2015 | | Results for this | | | e | 11:46 AM | | procedure are in the | | | | PDT | | results section. | + +--------+ + + + | TSH | Routin | 07/03/2015 | | Results for this | | | e | 11:46 AM | | procedure are in the | | | | PDT | | results section. | + +--------+ + + + | DRUG SCREEN PROFILE | Routin | 02/13/2015 | | Results for this | | 5, URINE | e | 4:30 PM | | procedure are in the | | | | PDT | | results section. | + +--------+ + + + | CBC, WITH | Routin | 12/25/2014 | | Results for this | | DIFFERENTIAL | e | 9:06 AM | | procedure are in the | | | | PDT | | results section. | + +--------+ + + + | COMPLETE METABOLIC | Routin | 12/25/2014 | | Results for this | | SET | e | 9:06 AM | | procedure are in the | | (NA,K,CL,CO2,BUN,CRE | | PDT | | results section. | | AT,GLUC,CA,AST,ALT,B | | | | | | MARLIN TOTAL,ALK | | | | | | PHOS,ALB,PROT TOTAL) | | | | | + +--------+ + + + | LIPASE, PLASMA | Routin | 12/25/2014 | | Results for this | | | e | 9:06 AM | | procedure are in the | | | | PDT | | results section. | + +--------+ + + + | CBC, WITH | Routin | 11/03/2014 | | Results for this | | DIFFERENTIAL | e | 4:40 PM | | procedure are in the | | | | PST | | results section. | + +--------+ + + + | COMPLETE METABOLIC | Routin | 11/03/2014 | | Results for this | | SET | e | 4:40 PM | | procedure are in the | | (NA,K,CL,CO2,BUN,CRE | | PST | | results section. | | AT,GLUC,CA,AST,ALT,B | | | | | | MARLIN TOTAL,ALK | | | | | | PHOS,ALB,PROT TOTAL) | | | | | + +--------+ + + + | LIPASE, PLASMA | Routin | 11/03/2014 | | Results for this | | | e | 4:40 PM | | procedure are in the | | | | PST | | results section. | + +--------+ + + + | MAGNESIUM, PLASMA | Routin | 11/03/2014 | | Results for this | | | e | 4:40 PM | | procedure are in the | | | | PST | | results section. | + +--------+ + + + | CBC, WITH | Routin | 10/24/2014 | | Results for this | | DIFFERENTIAL | e | 4:05 PM | | procedure are in the | | | | PST | | results section. | + +--------+ + + + | TSH | Routin | 10/24/2014 | | Results for this | | | e | 4:05 PM | | procedure are in the | | | | PST | | results section. | + +--------+ + + + | CBC, WITH | Routin | 08/18/2014 | | Results for this | | DIFFERENTIAL | e | 6:47 AM | | procedure are in the | | | | PST | | results section. | + +--------+ + + + | COMPLETE METABOLIC | Routin | 08/18/2014 | | Results for this | | SET | e | 6:47 AM | | procedure are in the | | (NA,K,CL,CO2,BUN,CRE | | PST | | results section. | | AT,GLUC,CA,AST,ALT,B | | | | | | MARLIN TOTAL,ALK | | | | | | PHOS,ALB,PROT TOTAL) | | | | | + +--------+ + + + | LIPASE, PLASMA | Routin | 08/18/2014 | | Results for this | | | e | 6:47 AM | | procedure are in the | | | | PST | | results section. | + +--------+ + + + | SEDIMENTATION RATE | Routin | 08/11/2014 | | Results for this | | | e | 6:15 AM | | procedure are in the | | | | PST | | results section. | + +--------+ + + + | CBC, WITH | Routin | 08/11/2014 | | Results for this | | DIFFERENTIAL | e | 5:58 AM | | procedure are in the | | | | PST | | results section. | + +--------+ + + + | COMPLETE METABOLIC | Routin | 08/11/2014 | | Results for this | | SET | e | 5:58 AM | | procedure are in the | | (NA,K,CL,CO2,BUN,CRE | | PST | | results section. | | AT,GLUC,CA,AST,ALT,B | | | | | | MARLIN TOTAL,ALK | | | | | | PHOS,ALB,PROT TOTAL) | | | | | + +--------+ + + + | LIPASE, PLASMA | Routin | 08/11/2014 | | Results for this | | | e | 5:58 AM | | procedure are in the | | | | PST | | results section. | + +--------+ + + + | C. DIFFICILE TOXIN, | Routin | 05/18/2014 | | Results for this | | W/REFLEX | e | 3:15 PM | | procedure are in the | | CONFIRMATION IF | | PDT | | results section. | | INDETERMINATE | | | | | | RESULTS | | | | | + +--------+ + + + | CBC, WITH | Routin | 05/18/2014 | | Results for this | | DIFFERENTIAL | e | 8:17 AM | | procedure are in the | | | | PDT | | results section. | + +--------+ + + + | COMPLETE METABOLIC | Routin | 05/18/2014 | | Results for this | | SET | e | 8:17 AM | | procedure are in the | | (NA,K,CL,CO2,BUN,CRE | | PDT | | results section. | | AT,GLUC,CA,AST,ALT,B | | | | | | MARLIN TOTAL,ALK | | | | | | PHOS,ALB,PROT TOTAL) | | | | | + +--------+ + + + | LIPASE, PLASMA | Routin | 05/18/2014 | | Results for this | | | e | 8:17 AM | | procedure are in the | | | | PDT | | results section. | + +--------+ + + + documented in this encounter Results COMPLETE METABOLIC SET (NA,K,CL,CO2,BUN,CREAT,GLUC,CA,AST,ALT,BILI TOTAL,ALK PHOS,ALB,PROT TOTAL) (12/11/2015 10:05 AM PDT) + +---------+ + + + | Component | Value | Ref Range | Performed | Pathologist | | | | | At | Signature | + +---------+ + + + | GLUCOSE, | 119 (A) | 70 - 100 mg/dL | [facility] | | | [facility] | | | [facility] | | | (LAB) | | | | | + +---------+ + + + | BUN, PLASMA | 14 | 6 - 23 mg/dL | [facility] | | | (LAB) | | | [facility] | | + +---------+ + + + | CREATININE | 1.01 | 0.60 - 1.35 | [facility] | | | PL[facility]MA | | mg/dL | [facility]OSPITAL | | | (LAB) | | | | | + +---------+ + + + | ALBUMIN, | 4.7 | 3.5 - 5.0 g/dL | [facility] | | | [facility] | | | [facility] | | | (LAB) | | | | | + +---------+ + + + | BILIRUBIN | 0.7 | 0.0 - 1.2 | [facility] | | | TOTAL | | Transcutaneous | HOSPITAL | | | | | Bilirubinometer | | | + +---------+ + + + | ALK PHOS | 98 | 30 - 128 U/L | [facility] | | | | | | [facility] | | + +---------+ + + + | AST(SGOT) | 33 | 13 - 39 U/L | [facility] | | | | | | [facility] | | + +---------+ + + + | SODIUM, | 138 | 132 - 143 | [facility] | | | PLASMA | | mmol/L | [facility]OSPITAL | | | (LAB) | | | | | + +---------+ + + + | POTASSIUM, | 4.3 | 3.6 - 5.1 | [facility] | | | [facility] | | mmol/L | [facility]OS[facility]ITAL | | | (LAB) | | | | | + +---------+ + + + | ALT (SGPT) | 52 | 7 - 52 U/L | [facility] | | | | | | [facility] | | + +---------+ + + + + + | Specimen | + + | Blood - Blood | + + + +---------+ + + | Performing | Address | City/State/Zipcode | Phone Number | | Organization | | | | + +---------+ + + | [facility] | | | [phone] | | [facility] | | | | + +---------+ + + | [facility] | | [place], [place] | [phone] | | [facility]OSPITAL | | | | + +---------+ + + CBC, WITH DIFFERENTIAL (12/11/2015 10:05 AM PDT) + + + + + + | Component | Value | Ref Range | Performed | Pathologist | | | | | At | Signature | + + + + + + | WHITE CELL | 12.2 (A) | 4.5 - 11.0 K/cu | [facility] | | | COUNT | | mm | [facility]PITAL | | + + + + + + | HEMOGLOBIN | 15.6 | 13.5 - 18.0 | [facility] | | | | | g/dL | [facility]PITAL | | + + + + + + | HEMATOCRIT | 47.7 | 41 - 50 % | [facility] | | | | | | [facility] | | + + + + + + | PLATELET | 297 | 140 - 440 K/cu | [facility] | | | COUNT | | mm | [facility]OSPITAL | | + + + + + + | NEUTROPHIL | 85 (A) | 39 - 80 % | [facility] | | | % | | | [facility] | | + + + + + + | LYMPHOCYTE | 12 (A) | 24 - 44 % | [facility] | | | % | | | [facility] | | + + + + + + + + | Specimen | + + | Blood - Blood | + + + +---------+ + + | Performing | Address | City/State/Zipcode | Phone Number | | Organization | | | | + +---------+ + + | [facility] | | | [phone] | | [facility]ITAL | | | | + +---------+ + + | [facility] | | [place] | [phone] | | HOSPITAL | | | | + +---------+ + + COMPLETE METABOLIC SET (NA,K,CL,CO2,BUN,CREAT,GLUC,CA,AST,ALT,BILI TOTAL,ALK PHOS,ALB,PROT TOTAL) (09/13/2015 10:46 AM PST) + +-------+ + + + | Component | Value | Ref Range | Performed | Pathologist | | | | | At | Signature | + +-------+ + + + | GLUCOSE, | 95 | 70 - 110 mg/dL | [facility] | | | [facility] | | | [facility] | | | (LAB) | | | [facility] | | + +-------+ + + + | BUN, PLASMA | 10 | 5 - 26 mg/dL | [facility] | | | (LAB) | | | [facility] | | | | | [facility] | | + +-------+ + + + | CREATININE | 1.1 | 0.7 - 1.4 mg/dL | [facility] | | | [facility] | | | [facility] | | | (LAB) | | | [facility] | | + +-------+ + + + | ALBUMIN, | 3.5 | 3.0 - 4.5 g/dL | [facility] | | | [facility] | | | [facility] | | | (LAB) | | | [facility] | | + +-------+ + + + | BILIRUBIN | 0.2 | 0 - 1.2 | [facility] | | | TOTAL | | Transcutaneous | [facility] | | | | | Bilirubinometer | [facility] | | + +-------+ + + + | ALK PHOS | 99 | 46 - 116 U/L | [facility] | | | | | [facility] | [facility] | [facility] | | + +-------+ + + + | AST(SGOT) | 26 | 0 - 38 U/L | [facility] | | | | [facility] | | | | [facility] | | + +-------+ + + + | SODIUM, | 138 | 132 - 143 | [facility] | | | [facility] | | mmol/L | [facility] | | | (LAB) | | | [facility] | | + +-------+ + + + | POTASSIUM, | 4.3 | 3.3 - 4.9 | [facility] | | | [facility] | | mmol/L | [facility] | | | (LAB) | | | [facility] | | + +-------+ + + + | ALT (SGPT) | 46 | 16 - 63 U/L | [facility] | | | | | [facility] | | | | [facility] | | + +-------+ + + + + + | Specimen | + + | Blood - Blood | + + + + + + + | Performing | Address | City/State/Zipcode | Phone Number | | Organization | | | | + + + + + | [facility] | [address] | [place] [address] | [phone] | | [facility] | [address] | | | + + + + + CBC, WITH DIFFERENTIAL (07/03/2015 11:46 AM PDT) + +-------+ + + + | Component | Value | Ref Range | Performed | Pathologist | | | | | At | Signature | + +-------+ + + + | WHITE CELL | 8.0 | 4.6 - 10.5 K/cu | [facility] | | | COUNT | | mm | [facility] | | | | [facility] | | + +-------+ + + + | HEMOGLOBIN | 14.4 | 13.1 - 17.4 | [facility] | | | | | g/dL | [facility] | [facility] | | + +-------+ + + + | HEMATOCRIT | 40.2 | 39.0 - 51.9 % | [facility] | | | | | [facility] | | + +-------+ + + + | PLATELET | 237 | 150 - 450 K/cu | [facility] | | | COUNT | | mm | [facility] | | | | [facility] | | + +-------+ + + + | NEUTROPHIL | 59.3 | 42.0 - 76.0 % | [facility] | | | % | | | [facility] | | | | [facility] | | + +-------+ + + + | LYMPHOCYTE | 32.7 | 20.0 - 40.0 % | [facility] | | | % | | | [facility] | | | | | [facility] | | + +-------+ + + + | NEUTROPHIL | 4.80 | 2.80 - 7.70 | [facility] | | | # | | K/cu mm | [facility] | | | | | [facility] | | + +-------+ + + + | LYMPHOCYTE | 2.60 | 1.20 - 3.30 | [facility] | | | # | | K/cu mm | [facility] | | | | | [facility] | | + +-------+ + + + + + | Specimen | + + | Blood - Blood | + + + + + + + | Performing | Address | City/State/Zipcode | Phone Number | | Organization | | | | + + + + + | [facility] | [address] | [place] [address] | [phone] | | [facility] | [address] | | | + + + + + FERRITIN (07/03/2015 11:46 AM PDT) + +-------+ + + + | Component | Value | Ref Range | Performed | Pathologist | | | | | At | Signature | + +-------+ + + + | FERRITIN | 51.5 | 17.9 - 464.0 | [facility] | | | | | ng/mL | [facility] | | | | | [facility] | | + +-------+ + + + + + | Specimen | + + | Blood - Blood | + + + + + + + | Performing | Address | City/State/Zipcode | Phone Number | | Organization | | | | + + + + + | [facility] | [address] | [place] [address] | [phone] | | [facility] | [address] | | | + + + + + TSH (07/03/2015 11:46 AM PDT) + + + + + + | Component | Value | Ref Range | Performed | Pathologist | | | | | At | Signature | + + + + + + | TSH | 0.03 (A) | 0.40 - 4.68 | [facility] | | | | | uIU/ml | [facility] | | | | | [facility] | | + + + + + + + + | Specimen | + + | Blood - Blood | + + + + + + + | Performing | Address | City/State/Zipcode | Phone Number | | Organization | | | | + + + + + | [facility] | [address] | [place] [address] | [phone] | | [facility] | [address] | | | + + + + + COMPLETE METABOLIC SET (NA,K,CL,CO2,BUN,CREAT,GLUC,CA,AST,ALT,BILI TOTAL,ALK PHOS,ALB,PROT TOTAL) (07/03/2015 11:46 AM PDT) + +---------+ + + + | Component | Value | Ref Range | Performed | Pathologist | | | | | At | Signature | + +---------+ + + + | GLUCOSE, | 87 | 70 - 110 mg/dL | [facility] | | | [facility] | | | [facility] | | | (LAB) | | | [facility] | | + +---------+ + + + | BUN, PLASMA | 12 | 5 - 26 mg/dL | [facility] | | | (LAB) | | | [facility] | | | | | [facility] | | + +---------+ + + + | CREATININE | 1.1 | 0.7 - 1.4 mg/dL | [facility] | | | [facility] | | | [facility] | | | (LAB) | | | [facility] | | + +---------+ + + + | ALBUMIN, | 3.5 | 3.0 - 4.5 g/dL | [facility] | | | [facility] | | | [facility] | | | (LAB) | | | [facility] | | + +---------+ + + + | BILIRUBIN | 0.2 | 0 - 1.2 | [facility] | | | TOTAL | | Transcutaneous | [facility] | | | | | Bilirubinometer | [facility]ITAL | | + +---------+ + + + | ALK PHOS | 90 | 46 - 116 U/L | [facility] | | | | | [facility] | | | | [facility] | | + +---------+ + + + | AST(SGOT) | 14 | 0 - 38 U/L | [facility] | | | | | [facility] | | | | [facility] | | + +---------+ + + + | SODIUM, | 145 (A) | 132 - 143 | [facility] | | | [facility] | | mmol/L | [facility] | | | (LAB) | | | [facility] | | + +---------+ + + + | POTASSIUM, | 3.5 | 3.3 - 4.9 | [facility] | | | [facility] | | mmol/L | [facility] | | | (LAB) | | | [facility] | | + +---------+ + + + | ALT (SGPT) | 29 | 16 - 63 U/L | [facility] | | | | | [facility] | | | | [facility] | | + +---------+ + + + + + | Specimen | + + | Blood - Blood | + + + + + + + | Performing | Address | City/State/Zipcode | Phone Number | | Organization | | | | + + + + + | [facility] | [address] | [place] [address] | [phone] | | [facility] | [address] | | | + + + + + DRUG SCREEN PROFILE 5, URINE (02/13/2015 4:30 PM PDT) + +-------+ + + + | Component | Value | Ref Range | Performed | Pathologist | | | | | At | Signature | + +-------+ + + + | AMPHET/MET | NEG | | [facility] | | | SCRN,URINE | | | [facility] | [facility] | | + +-------+ + + + | BARBITURATE | NEG | | [facility] | | | SCREEN, | | | [facility] | | | URINE | | | [facility] | | + +-------+ + + + | BENZODIAZEP | NEG | | [facility] | | | INE SCR, UR | | | [facility] | | | | [facility] | | + +-------+ + + + | CANNABINOID | POS | | [facility] | | | UR | | | [facility] | | | | | [facility] | | + +-------+ + + + | COCAINE | NEG | | [facility] | | | MET. SCRN, | | | [facility] | | | URINE | | | [facility] | | + +-------+ + + + | OPIATE | POS | | [facility] | | | URINE | | | [facility] | [facility] | | [facility] | | + +-------+ + + + | OXYCODONE, | POS | | [facility] | | | URINE | | | [facility] | | | | [facility] | | + +-------+ + + + | PROPOXYPHEN | NEG | | [facility] | | | E | | | [facility] | [facility] | [facility] | | + +-------+ + + + | BUPRENORPHI | NEG | | [facility] | | | NE, URINE | | | [facility] | | | | [facility] | | + +-------+ + + + | PCP URINE | NEG | | [facility] | | | | | | [facility] | | | | [facility] | | + +-------+ + + + | TRICYCLIC | NEG | | [facility] | | | ANTIDEPRESS | | | [facility] | | | ANTS,UR | | | [facility] | | + +-------+ + + + + + | Specimen | + + | Urine - Urine | + + + + + + + | Performing | Address | City/State/Zipcode | Phone Number | | Organization | | | | + + + + + | [facility] | [address] | [place] [address] | [phone] | | [facility] | [address] | | | + + + + + CBC, WITH DIFFERENTIAL (12/25/2014 9:06 AM PDT) + + + + + + | Component | Value | Ref Range | Performed | Pathologist | | | | | At | Signature | + + + + + + | WHITE CELL | 12.9 (A) | 4.6 - 10.5 K/cu | [facility] | | | COUNT | | mm | [facility] | | | | [facility] | | + + + + + + | HEMOGLOBIN | 14.1 | 13.1 - 17.4 | [facility] | | | | | g/dL | [facility] | | | | [facility] | | + + + + + + | HEMATOCRIT | 40.3 | 39.0 - 51.9 % | [facility] | | | | | | [facility] | | | | [facility] | | + + + + + + | PLATELET | 306 | 150 - 450 K/cu | [facility] | | | COUNT | | mm | [facility] | | | | | | [facility] | | + + + + + + | NEUTROPHIL | 82.9 (A) | 42.0 - 76.0 % | [facility] | | | % | | | [facility] | | | | [facility] | | + + + + + + | LYMPHOCYTE | 11.5 (A) | 20.0 - 40.0 % | [facility] | | | % | | | [facility] | | | | | [facility] | | + + + + + + | NEUTROPHIL | 10.66 (A) | 2.80 - 7.70 | [facility] | | | # | | K/cu mm | [facility] | | | | | [facility] | | + + + + + + | LYMPHOCYTE | 1.48 | 1.20 - 3.30 | [facility] | | | # | | K/cu mm | [facility] | | | | | | [facility] | | + + + + + + + + | Specimen | + + | Blood - Blood | + + + + + + + | Performing | Address | City/State/Zipcode | Phone Number | | Organization | | | | + + + + + | [facility] | [address] | [place] [address] | [phone] | | [facility] | [address] | | | + + + + + LIPASE, PLASMA (12/25/2014 9:06 AM PDT) + +-------+ + + + | Component | Value | Ref Range | Performed | Pathologist | | | | | At | Signature | + +-------+ + + + | LIPASE | 330 | 73 - 393 U/L | [facility] | | | (LAB) | | | [facility] | | | | [facility] | | + +-------+ + + + + + | Specimen | + + | Blood - Blood | + + + + + + + | Performing | Address | City/State/Zipcode | Phone Number | | Organization | | | | + + + + + | [facility] | [address] | [place] [address] | [phone] | | [facility] | [address] | | | + + + + + COMPLETE METABOLIC SET (NA,K,CL,CO2,BUN,CREAT,GLUC,CA,AST,ALT,BILI TOTAL,ALK PHOS,ALB,PROT TOTAL) (12/25/2014 9:06 AM PDT) + +---------+ + + + | Component | Value | Ref Range | Performed | Pathologist | | | | | At | Signature | + +---------+ + + + | GLUCOSE, | 112 (A) | 70 - 110 mg/dL | [facility] | | | [facility] | | | [facility] | | | (LAB) | | | [facility] | | + +---------+ + + + | BUN, PLASMA | 9 | 5 - 26 mg/dL | [facility] | | | (LAB) | | | [facility] | | | | | | [facility] | | + +---------+ + + + | CREATININE | 1.2 | 0.7 - 1.4 mg/dL | [facility] | | | [facility] | | | [facility] | | | (LAB) | | | [facility] | | + +---------+ + + + | ALBUMIN, | 3.8 | 3.0 - 4.5 g/dL | [facility] | | | [facility] | | | [facility] | | | (LAB) | | | [facility] | | + +---------+ + + + | BILIRUBIN | 0.6 | 0 - 1.2 | [facility] | | | TOTAL | | Transcutaneous | [facility] | | | | | Bilirubinometer | [facility]ITAL | | + +---------+ + + + | ALK PHOS | 76 | 46 - 116 U/L | [facility] | | | | | [facility] | | | | [facility] | | + +---------+ + + + | AST(SGOT) | 15 | 0 - 38 U/L | [facility] | | | | | [facility] | | | | | [facility] | | + +---------+ + + + | SODIUM, | 142 | 132 - 143 | [facility] | | | [facility] | | mmol/L | [facility] | | | (LAB) | | | [facility] | | + +---------+ + + + | POTASSIUM, | 4.1 | 3.3 - 4.9 | [facility] | | [facility] | | mmol/L | [facility] | | | (LAB) | | | [facility] | | + +---------+ + + + | ALT (SGPT) | 22 | 16 - 63 U/L | [facility] | | | | | [facility] | | | | [facility] | | + +---------+ + + + + + | Specimen | + + | Blood - Blood | + + + + + + + | Performing | Address | City/State/Zipcode | Phone Number | | Organization | | | | + + + + + | [facility] | [address] | [place] [address] | [phone] | | [facility] | [address] | | | + + + + + CBC, WITH DIFFERENTIAL (11/03/2014 4:40 PM PST) + + + + + + | Component | Value | Ref Range | Performed | Pathologist | | | | | At | Signature | + + + + + + | WHITE CELL | 10.5 | 4.6 - 10.5 K/cu | [facility] | | | COUNT | | mm | [facility] | | | | | [facility] | | + + + + + + | HEMOGLOBIN | 15.3 | 13.1 - 17.4 | [facility] | | | | | g/dL | [facility] | | + + + + + + | HEMATOCRIT | 43.4 | 39.0 - 51.9 % | [facility] | | | | | | [facility] | | + + + + + + | PLATELET | 247 | 150 - 450 K/cu | [facility] | | | COUNT | | mm | [facility] | | + + + + + + | NEUTROPHIL | 87.7 (A) | 42.0 - 76.0 % | [facility] | | | % | | | [facility] | [facility] | | + + + + + + | LYMPHOCYTE | 9.2 (A) | 20.0 - 40.0 % | [facility] | | | % | | | [facility] | | | | [facility] | | + + + + + + | NEUTROPHIL | 9.20 (A) | 2.80 - 7.70 | [facility] | | | # | | K/cu mm | [facility] | [facility] | | + + + + + + | LYMPHOCYTE | 0.96 (A) | 1.20 - 3.30 | [facility] | | | # | | K/cu mm | [facility] | | | | [facility] | | + + + + + + + + | Specimen | + + | Blood - Blood | + + + + + + + | Performing | Address | City/State/Zipcode | Phone Number | | Organization | | | | + + + + + | [facility] | [address] | [place] [address] | [phone] | | [facility] | [address] | | | + + + + + MAGNESIUM, PLASMA (11/03/2014 4:40 PM PST) + +---------+ + + + | Component | Value | Ref Range | Performed | Pathologist | | | | | At | Signature | + +---------+ + + + | MAGNESIUM,P | 1.7 (A) | 1.8 - 2.4 mg/dL | [facility] | | | [facility] | | + +---------+ + + + + + | Specimen | + + | Blood - Blood | + + + + + + + | Performing | Address | City/State/Zipcode | Phone Number | | Organization | | | | + + + + + | [facility] | [address] | [place] [address] | [phone] | | [facility] | [address] | | | + + + + + LIPASE, PLASMA (11/03/2014 4:40 PM PST) + +-------+ + + + | Component | Value | Ref Range | Performed | Pathologist | | | | | At | Signature | + +-------+ + + + | LIPASE | 189 | 73 - 393 U/L | [facility] | | | ([facility]) | | | [facility] | | | | [facility] | | + +-------+ + + + + + | Specimen | + + | Blood - Blood | + + + + + + + | Performing | Address | City/State/Zipcode | Phone Number | | Organization | | | | + + + + + | [facility] | [address] | [place] [address] | [phone] | | [facility] | [address] | | | + + + + + COMPLETE METABOLIC SET (NA,K,CL,CO2,BUN,CREAT,GLUC,CA,AST,ALT,BILI TOTAL,ALK PHOS,ALB,PROT TOTAL) (11/03/2014 4:40 PM PST) + +---------+ + + + | Component | Value | Ref Range | Performed | Pathologist | | | | | At | Signature | + +---------+ + + + | GLUCOSE, | 112 (A) | 70 - 110 mg/dL | [facility] | | | [facility] | | ([facility]) | | | [facility] | | + +---------+ + + + | BUN, PLASMA | 16 | 5 - 26 mg/dL | [facility] | | | ([facility]) | | | [facility] | | | | [facility] | | + +---------+ + + + | CREATININE | 1.3 | 0.7 - 1.4 mg/dL | [facility] | [facility] | | | [facility] | | | ([facility]) | | | [facility] | | + +---------+ + + + | ALBUMIN, | 4.4 | 3.0 - 4.5 g/dL | [facility] | | | [facility] | | ([facility]) | | | [facility] | | + +---------+ + + + | BILIRUBIN | 0.8 | 0 - 1.2 | [facility] | | | TOTAL | | Transcutaneous | [facility] | | | | | [facility] | [facility] | | + +---------+ + + + | ALK PHOS | 88 | 46 - 116 U/L | [facility] | | | | [facility] | | + +---------+ + + + | AST(SGOT) | 25 | 0 - 38 U/L | [facility] | | | | | [facility] | | + +---------+ + + + | SODIUM, | 139 | 132 - 143 | [facility] | | | [facility] | | mmol/L | [facility] | | | ([facility]) | | | [facility] | | + +---------+ + + + | POTASSIUM, | 3.8 | 3.3 - 4.9 | [facility] | | [facility] | | mmol/L | [facility] | | | ([facility]) | | | [facility] | | + +---------+ + + + | ALT (SGPT) | 47 | 16 - 63 U/L | [facility] | [facility] | | + +---------+ + + + + + | Specimen | + + | Blood - Blood | + + + + + + + | Performing | Address | City/State/Zipcode | Phone Number | | Organization | | | | + + + + + | [facility] | [address] | [place] [address] | [phone] | | [facility] | [address] | | | + + + + + CBC, WITH DIFFERENTIAL (10/24/2014 4:05 PM PST) + +-------+ + + + | Component | Value | Ref Range | Performed | Pathologist | | | | | At | Signature | + +-------+ + + + | WHITE CELL | 9.8 | 4.6 - 10.5 K/cu | [facility] | | | COUNT | | mm | [facility] | | + +-------+ + + + | HEMOGLOBIN | 15.2 | 13.1 - 17.4 | [facility] | | | | | g/dL | [facility] | | + +-------+ + + + | HEMATOCRIT | 43.2 | 39.0 - 51.9 % | [facility] | | + +-------+ + + + | PLATELET | 259 | 150 - 450 K/cu | [facility] | | | COUNT | | mm | [facility] | | + +-------+ + + + | NEUTROPHIL | 64.3 | 42.0 - 76.0 % | [facility] | | | % | | | [facility] | | + +-------+ + + + | LYMPHOCYTE | 31.1 | 20.0 - 40.0 % | [facility] | | | % | | | [facility] | | + +-------+ + + + | NEUTROPHIL | 6.30 | 2.80 - 7.70 | [facility] | | | # | | K/cu mm | [facility] | | + +-------+ + + + | LYMPHOCYTE | 3.00 | 1.20 - 3.30 | [facility] | | | # | | K/cu mm | [facility] | | + +-------+ + + + + + | Specimen | + + | Blood - Blood | + + + + + + + | Performing | Address | City/State/Zipcode | Phone Number | | Organization | | | | + + + + + | [facility] | [address] | [place] [address] | [phone] | | [facility] | [address] | | | + + + + + TSH (10/24/2014 4:05 PM PST) + + + + + + | Component | Value | Ref Range | Performed | Pathologist | | | | | At | Signature | + + + + + + | TSH | >100.00 (A) | 0.40 - 4.68 | [facility] | | | | | uIU/ml | [facility] | [facility] | | + + + + + + + + | Specimen | + + | Blood - Blood | + + + + + + + | Performing | Address | City/State/Zipcode | Phone Number | | Organization | | | | + + + + + | [facility] | [address] | [place] [address] | [phone] | | [facility] | [address] | | | + + + + + CBC, WITH DIFFERENTIAL (08/18/2014 6:47 AM PST) + + + + + + | Component | Value | Ref Range | Performed | Pathologist | | | | | At | Signature | + + + + + + | WHITE CELL | 12.8 (A) | 4.6 - 10.5 K/cu | [facility] | | | COUNT | | mm | [facility] | | + + + + + + | HEMOGLOBIN | 14.5 | 13.1 - 17.4 | [facility] | | | | | g/dL | [facility] | | + + + + + + | HEMATOCRIT | 42.4 | 39.0 - 51.9 % | [facility] | | | | | [facility] | | + + + + + + | PLATELET | 313 | 150 - 450 K/cu | [facility] | | | COUNT | | mm | [facility] | | + + + + + + | NEUTROPHIL | 76.4 (A) | 42.0 - 76.0 % | [facility] | | | % | | | [facility] | | + + + + + + | LYMPHOCYTE | 16.4 (A) | 20.0 - 40.0 % | [facility] | | | % | | | [facility] | | + + + + + + | NEUTROPHIL | 9.80 (A) | 2.80 - 7.70 | [facility] | | | # | | K/cu mm | [facility] | | + + + + + + | LYMPHOCYTE | 2.11 | 1.20 - 3.30 | [facility] | | | # | | K/cu mm | [facility] | [facility] | | + + + + + + + + | Specimen | + + | Blood - Blood | + + + + + + + | Performing | Address | City/State/Zipcode | Phone Number | | Organization | | | | + + + + + | [facility] | [address] | [place] [address] | [phone] | | [facility] | [address] | | | + + + + + LIPASE, PLASMA (08/18/2014 6:47 AM PST) + +-------+ + + + | Component | Value | Ref Range | Performed | Pathologist | | | | | At | Signature | + +-------+ + + + | LIPASE | 201 | 73 - 393 U/L | [facility] | | | (LAB) | | | [facility] | | + +-------+ + + + + + | Specimen | + + | Blood - Blood | + + + + + + + | Performing | Address | City/State/Zipcode | Phone Number | | Organization | | | | + + + + + | [facility] | [address] | [place] [address] | [phone] | | [facility] | [address] | | | + + + + + COMPLETE METABOLIC SET (NA,K,CL,CO2,BUN,CREAT,GLUC,CA,AST,ALT,BILI TOTAL,ALK PHOS,ALB,PROT TOTAL) (08/18/2014 6:47 AM PST) + +-------+ + + + | Component | Value | Ref Range | Performed | Pathologist | | | | | At | Signature | + +-------+ + + + | GLUCOSE, | 90 | 70 - 110 mg/dL | [facility] | | | PLAS[facility] | | | [facility] | | | ([facility]) | | | [facility] | | + +-------+ + + + | BUN, PLASMA | 12 | 5 - 26 mg/dL | [facility] | | | (LAB) | | | [facility] | | | | [facility] | | + +-------+ + + + | CREATININE | 1.4 | 0.7 - 1.4 mg/dL | [facility] | | | [facility]AS[facility] | | | [facility] | | | ([facility]) | | | [facility] | | + +-------+ + + + | ALBUMIN, | 4.1 | 3.0 - 4.5 g/dL | [facility] | | | [facility] | | | [facility] | | | ([facility]) | | | [facility] | | + +-------+ + + + | BILIRUBIN | 0.5 | 0 - 1.2 | [facility] | | | TOTAL | | Transcutaneous | [facility] | | | | | Bilirubinometer | [facility] | | + +-------+ + + + | ALK PHOS | 83 | 33 - 151 U/L | [facility] | | | | [facility] | | + +-------+ + + + | AST(SGOT) | 28 | 0 - 38 U/L | [facility] | | | | | [facility] | | + +-------+ + + + | SODIUM, | 142 | 132 - 143 | [facility] | | | PLAS[facility] | | mmol/L | [facility] | | | (LAB) | | | [facility] | | + +-------+ + + + | POTASSIUM, | 4.0 | 3.3 - 4.9 | [facility] | | | [facility] | | mmol/L | [facility] | | | (LAB) | | | [facility] | | + +-------+ + + + | ALT (SGPT) | 48 | 16 - 63 U/L | [facility] | | | | | [facility] | [facility] | | + +-------+ + + + + + | Specimen | + + | Blood - Blood | + + + + + + + | Performing | Address | City/State/Zipcode | Phone Number | | Organization | | | | + + + + + | [facility] | [address] | [place] [address] | [phone] | | [facility] | [address] | | | + + + + + SEDIMENTATION RATE (08/11/2014 6:15 AM PST) + +-------+ + + + | Component | Value | Ref Range | Performed | Pathologist | | | | | At | Signature | + +-------+ + + + | SEDIMENTATI | 8 | 0 - 15 mm/hr | [facility] | | | ON RATE | | | [facility] | | | [facility] | | + +-------+ + + + + + | Specimen | + + | Blood - Blood | + + + + + + + | Performing | Address | City/State/Zipcode | Phone Number | | Organization | | | | + + + + + | [facility] | [address] | [place] [address] | [phone] | | [facility] | [address] | | | + + + + + CBC, WITH DIFFERENTIAL (08/11/2014 5:58 AM PST) + + + + + + | Component | Value | Ref Range | Performed | Pathologist | | | | | At | Signature | + + + + + + | WHITE CELL | 10.7 (A) | 4.6 - 10.5 K/cu | [facility] | | | COUNT | | mm | [facility] | [facility] | [facility] | | + + + + + + | HEMOGLOBIN | 13.3 | 13.1 - 17.4 | [facility] | | | | | g/dL | [facility] | | | | [facility] | | + + + + + + | HEMATOCRIT | 38.1 (A) | 39.0 - 51.9 % | [facility] | | | | | [facility] | | + + + + + + | PLATELET | 247 | 150 - 450 K/cu | [facility] | | | COUNT | | mm | [facility] | [facility] | | [facility] | | + + + + + + | NEUTROPHIL | 76.6 (A) | 42.0 - 76.0 % | [facility] | | | % | | | [facility] | | + + + + + + | LYMPHOCYTE | 15.7 (A) | 20.0 - 40.0 % | [facility] | | | % | | | [facility] | | | [facility] | | + + + + + + | NEUTROPHIL | 8.17 (A) | 2.80 - 7.70 | [facility] | | | # | | K/cu mm | [facility] | | | | [facility] | | + + + + + + | LYMPHOCYTE | 1.68 | 1.20 - 3.30 | [facility] | | | # | | K/cu mm | [facility] | | | | [facility] | | + + + + + + + + | Specimen | + + | Blood - Blood | + + + + + + + | Performing | Address | City/State/Zipcode | Phone Number | | Organization | | | | + + + + + | [facility] | [address] | [place] [address] | [phone] | | [facility] | [address] | | | + + + + + LIPASE, PLASMA (08/11/2014 5:58 AM PST) + + + + + + | Component | Value | Ref Range | Performed | Pathologist | | | | | At | Signature | + + + + + + | LIPASE | 1,006 (A) | 73 - 393 U/L | [facility] | | | (LAB) | | | [facility] | [facility] | | + + + + + + + + | Specimen | + + | Blood - Blood | + + + + + + + | Performing | Address | City/State/Zipcode | Phone Number | | Organization | | | | + + + + + | [facility] | [address] | [place] [address] | [phone] | | [facility] | [address] | | | + + + + + COMPLETE METABOLIC SET (NA,K,CL,CO2,BUN,CREAT,GLUC,CA,AST,ALT,BILI TOTAL,ALK PHOS,ALB,PROT TOTAL) (08/11/2014 5:58 AM PST) + +--------+ + + + | Component | Value | Ref Range | Performed | Pathologist | | | | | At | Signature | + +--------+ + + + | GLUCOSE, | 90 | 70 - 110 mg/dL | [facility] | | | PLAS[facility] | | | [facility] | | ([facility]) | | [facility] | | + +--------+ + + + | BUN, PLASMA | 13 | 5 - 26 mg/dL | [facility] | | | (LAB) | | | [facility] | | | [facility] | | + +--------+ + + + | CREATININE | 1.4 | 0.7 - 1.4 mg/dL | [facility] | | | PLAS[facility] | | | [facility] | | | ([facility]) | | [facility] | | + +--------+ + + + | ALBUMIN, | 3.7 | 3.0 - 4.5 g/dL | [facility] | | | PLAS[facility] | | | [facility] | | | ([facility]) | | [facility] | | + +--------+ + + + | BILIRUBIN | 0.3 | 0 - 1.2 | [facility] | | | TOTAL | | Transcutaneous | [facility] | | | | | Bilirubinometer | [facility] | | + +--------+ + + + | ALK PHOS | 74 | 33 - 151 U/L | [facility] | | | | [facility] | | + +--------+ + + + | AST(SGOT) | 35 | 0 - 38 U/L | [facility] | | | | [facility] | | + +--------+ + + + | SODIUM, | 139 | 132 - 143 | [facility] | | | PLASMA | | mmol/L | [facility] | | | (LAB) | | | [facility] | | + +--------+ + + + | POTASSIUM, | 3.5 | 3.3 - 4.9 | [facility] | | | [facility] | | mmol/L | [facility] | | | (LAB) | | [facility] | | + +--------+ + + + | ALT (SGPT) | 72 (A) | 16 - 63 U/L | [facility] | | | [facility] | | + +--------+ + + + + + | Specimen | + + | Blood - Blood | + + + + + + + | Performing | Address | City/State/Zipcode | Phone Number | | Organization | | | | + + + + + | [facility] | [address] | [place] [address] | [phone] | | [facility] | [address] | | | + + + + + C. DIFFICILE TOXIN (05/18/2014 3:15 PM PDT) + + + + + + | Component | Value | Ref Range | Performed | Pathologist | | | | | At | Signature | + + + + + + | C. | Negative | Negative | [facility] | | | DIFFICILE | | | [facility] | | | TOXIN | | | [facility] | | + + + + + + + + | Specimen | + + | Stool - Rectum | + + + + + + + | Performing | Address | City/State/Zipcode | Phone Number | | Organization | | | | + + + + + | [facility] | [address] | [place] [address] | [phone] | | [facility] | [address] | | | + + + + + CBC, WITH DIFFERENTIAL (05/18/2014 8:17 AM PDT) + + + + + + | Component | Value | Ref Range | Performed | Pathologist | | | | | At | Signature | + + + + + + | WHITE CELL | 14.0 (A) | 4.6 - 10.5 K/cu | [facility] | | | COUNT | | mm | [facility] | | | | [facility] | | + + + + + + | HEMOGLOBIN | 14.0 | 13.1 - 17.4 | [facility] | | | | | g/dL | [facility] | | | | [facility] | | + + + + + + | HEMATOCRIT | 40.3 | 39.0 - 51.9 % | [facility] | | | | | [facility] | | + + + + + + | PLATELET | 231 | 150 - 450 K/cu | [facility] | | | COUNT | | mm | [facility] | | | | [facility] | | + + + + + + | NEUTROPHIL | 80.3 (A) | 42.0 - 76.0 % | [facility] | | | % | | | [facility] | | + + + + + + | LYMPHOCYTE | 12.9 (A) | 29.0 - 49.0 % | [facility] | | | % | | | [facility] | | | | [facility] | | + + + + + + | NEUTROPHIL | 11.27 (A) | 2.80 - 7.70 | [facility] | | | # | | K/cu mm | [facility] | [facility] | | + + + + + + | LYMPHOCYTE | 1.81 | 1.20 - 3.30 | [facility] | | | # | | K/cu mm | [facility] | | | | [facility] | | + + + + + + + + | Specimen | + + | Blood - Blood | + + + + + + + | Performing | Address | City/State/Zipcode | Phone Number | | Organization | | | | + + + + + | [facility] | [address] | [place] [address] | [phone] | | [facility] | [address] | | | + + + + + LIPASE, PLASMA (05/18/2014 8:17 AM PDT) + +---------+ + + + | Component | Value | Ref Range | Performed | Pathologist | | | | | At | Signature | + +---------+ + + + | LIPASE | 834 (A) | 73 - 393 U/L | [facility] | | | (LAB) | | | [facility] | | + +---------+ + + + + + | Specimen | + + | Blood - Blood | + + + + + + + | Performing | Address | City/State/Zipcode | Phone Number | | Organization | | | | + + + + + | [facility] | [address] | [place] [address] | [phone] | | [facility] | [address] | | | + + + + + COMPLETE METABOLIC SET (NA,K,CL,CO2,BUN,CREAT,GLUC,CA,AST,ALT,BILI TOTAL,ALK PHOS,ALB,PROT TOTAL) (05/18/2014 8:17 AM PDT) + +-------+ + + + | Component | Value | Ref Range | Performed | Pathologist | | | | | At | Signature | + +-------+ + + + | GLUCOSE, | 100 | 70 - 110 mg/dL | [facility] | | | PLASMA | | | [facility] | | | (LAB) | | [facility] | | + +-------+ + + + | BUN, PLASMA | 12 | 5 - 26 mg/dL | [facility] | | | (LAB) | | | [facility] | | | | [facility] | | + +-------+ + + + | CREATININE | 1.2 | 0.7 - 1.4 mg/dL | [facility] | | | PLASMA | | | [facility] | | | (LAB) | | [facility] | | + +-------+ + + + | ALBUMIN, | 3.7 | 3.0 - 4.5 g/dL | [facility] | | | PLAS[facility] | | | [facility] | | | (LAB) | | [facility] | | + +-------+ + + + | BILIRUBIN | 0.3 | 0 - 1.2 | [facility] | | | TOTAL | | Transcutaneous | [facility] | | | | | Bilirubinometer | [facility] | | + +-------+ + + + | ALK PHOS | 95 | 33 - 151 U/L | [facility] | | | | [facility] | | + +-------+ + + + | AST(SGOT) | 19 | 0 - 38 U/L | [facility] | | | | [facility] | | + +-------+ + + + | SODIUM, | 135 | 132 - 143 | [facility] | | | PLASMA | | mmol/L | [facility] | | | (LAB) | | | [facility] | | + +-------+ + + + | POTASSIUM, | 3.8 | 3.3 - 4.9 | [facility] | | | [facility] | | mmol/L | [facility] | | | (LAB) | | [facility] | | + +-------+ + + + | ALT (SGPT) | 37 | 30 - 65 U/L | [facility] | | | | [facility] | | + +-------+ + + + + + | Specimen | + + | Blood - Blood | + + + + + + + | Performing | Address | City/State/Zipcode | Phone Number | | Organization | | | | + + + + + | [facility] | [address] | [place] [address] | [phone] | | [facility] | [address] | | | + + + + + documented in this encounter Visit Diagnoses Not on filedocumented in this encounter"
--- OUTSIDE RECORDS SUMMARY | ~2019-09-03 | XMS | Encounter Summary ---
Demographics + + + | Address | [address] | | | [place] [address] | + + + | Home Phone | | + + + | Preferred Language | Unknown | + + + | Marital Status | Single | + + + | Caodaism Affiliation | 1013 | + + + | Race | Unknown | + + + | Ethnic Group | Unknown | + + + Author + + + | Author | [facility] | | | and [place] | + + + | Organization | [facility] | | | and [place] [...] Team Providers + +------+ + | Care Boring Machine Operator Horizontal Name | Role | Phone | + +------+ + | No, Physician | PCP | Unavailable | + +------+ + Encounter Details +--------+ + + + + | Date | Type | Department | Care Team | Description | +--------+ + + + + | 10/24/ | Hospital | [facility] | Emily Green, | | | 2014 | Encounter | [facility] | DO [address] | | | | | [facility] [address] | [facility] [place] [address] | | | | | [address] [place], | [phone] | | | | | [place] [address] | | | | | | [phone] | | | +--------+ + + + [...]
--- OUTSIDE RECORDS SUMMARY | ~2019-09-03 | XMS | Clinical Summary ---
Demographics + + + | Address | [address] | | | [place] [address] | + + + | Home Phone | | + + + | Preferred Language | Unknown | + + + | Marital Status | Single | + + + | Amish Affiliation | CHR | + + + [...] Team Providers + +------+ + | Care Exhauster Name | Role | Phone | + +------+ + | Meaghan Zhong MD | PCP | | + +------+ + Source Comments PAT is fully live on both [facility] and [facility] Allergies + + + + + + [...] | + + + + + + Medications + + + +---------+------+------+-------+ | Medication | Sig | Dispensed | Refills | Star | End | Statu | | | | | | t | Date | s | | | | | | Date | | | + + + +---------+------+------+-------+ | albuterol (PROAIR | 2 puffs inhaled | | 0 | 09/1 | | Activ | | HFA) 90 | every 4 hours as | | | 4/20 | | e | | mcg/actuation | needed for shortness | | | 12 | | | | inhalation HFA | of breath | | | | | | | aerosol inhaler | | | | | | | + + + +---------+------+------+-------+ | levothyroxine | Take by mouth. | | 0 | | | Activ | | (SYNTHROID) 125 mcg | | | | | | e | | oral tablet | | | | | | | + + + +---------+------+------+-------+ | CITALOPRAM 40 mg | Take 40 mg by mouth | | 0 | 06/0 | | Activ | | oral tablet | once daily. | | | 03/17 | | e | | | | | | 15 | | | + + + +---------+------+------+-------+ | LEVOTHYROXINE 200 | Take 200 mcg by | | 0 | 08/0 | | Activ | | mcg oral tablet | mouth once daily. | | | 01/15 | | e | | | | | | 15 | | | + + + +---------+------+------+-------+ | mesalamine 1.2 g | Take 6 tablets by | 180 | 3 | 11/2 | | Activ | | oral tablet,delayed | mouth once daily. | tablet | | 20 | | e | | release (/EC) | | | | 16 | | | + + + +---------+------+------+-------+ | omeprazole 20 mg | Take 20 mg by mouth | | 0 | | | Activ | | oral capsule,delayed | once daily. | | | | | e | | release(DR/EC) | | | | | | | + + + +---------+------+------+-------+ | promethazine 25 mg | Take 25 mg by mouth | | 0 | | | Activ | | oral tablet | four times daily as | | | | | e | | | needed for | | | | | | | | nausea/vomiting. | | | | | | + + + +---------+------+------+-------+ | rOPINIRole 1 mg | Take 1 mg by mouth. | | 0 | | | Activ | | oral tablet | | | | | | e | + + + +---------+------+------+-------+ Active Problems + + + | Problem | Noted Date | + + + | Encounter for long-term (current) use of medications | 12/06/2015 | + + + | CD (Crohn's disease) | 05/14/2015 | + + + | [...] recent travel history available. | + + Last Filed Vital Signs + + + + + | Vital Sign | Reading | Time Taken | Comments | + + + + + | Blood Pressure | 125/76 | 01/26/2017 3:17 PM | | | | | PDT | | + + + + + | Pulse | 64 | 01/26/2017 3:17 PM | | | | | PDT | | + + + + + | Temperature | 36.6 C (97.8 F) | 01/26/2017 3:17 PM | | | | | PDT | | + + + + + | Respiratory Rate | 16 | 01/26/2017 3:17 PM | | | | | PDT | | + + + + + | Oxygen Saturation | 96% | 12/06/2015 12:16 PM | | | | | PST | | + + + + + | Inhaled Oxygen | - | - | | | Concentration | | | | + + + + + | Weight | 56.3 kg (124 lb 3.2 | 01/26/2017 3:17 PM | | | | oz) | PDT | | + + + + + | Height | 157.5 cm (5' 2") | 01/26/2017 3:17 PM | | | | | PDT | | + + + + + | Body Mass Index | 22.72 | 01/26/2017 3:17 PM | | | | | PDT | | + + + + + Plan of Treatment + + + + + | Health Maintenance | Due Date | Last Done | Comments | + + + + + | Influenza (Flu) | | 08/19/2016, 08/14/2015, | | | vaccination (#1) | 9 | 07/03/2015, Additional history | | | | | exists | | + + + + + | Pneumococcal | Completed | 08/14/2015, 07/03/2015, | | | vaccination | | 07/03/2015 | | + + + + + Results Not on filefrom Last 3 Months Insurance + +--------+ +--------+-------+---------+--------+ | Payer | Benefi | Subscriber | Effect | Phone | Address | Type | | | t Plan | ID | srinivasan | | | | | | / | | Dates | | | | | | Group | | | | | | + +--------+ +--------+-------+---------+--------+ | [employer] | [employer] | xxxxxxxx | | | | Medica | | | [place] | | 015-Pr | | | id | | | [place] | | esent | | | | + +--------+ +--------+-------+---------+--------+ + +--------+ +--------+ + + | Guarantor Name | Accoun | Relation to | Date | Phone | Billing Address | | | t Type | Patient | of | | | | | | | | | | + +--------+ +--------+ + + | Rachid Glez | Person | Self [birth year] | [address] | | | christy/Livan | | 1971 | [phone] | [place] [address] | | | david | | | 0 (Home) | | + +--------+ +--------+ + +
--- OUTSIDE RECORDS SUMMARY | ~2019-09-03 | XMS | Encounter Summary ---
Demographics + + + | Address | [address] | | | [place] [address] | + + + | Home Phone | | + + + | Preferred Language | Unknown | + + + | Marital Status | Single | + + + | Presybeterian Affiliation | 1013 | + + + | Race | Unknown | + + + | Ethnic Group | Unknown | + + + Author + + + | Author | [facility] | | | and [place] | + + + | Organization | [facility] | | | and [...] Team Providers + +------+ + | Care Microwave Oven Assembler Name | Role | Phone | + +------+ + | Emily Green DO | PCP | | + +------+ + Reason for Visit Auth/Cert +--------+--------+ + + + + | Status | Reason | Specialty | Diagnoses / | Referred By | Referred To | | | | | Procedures | Contact | Contact | +--------+--------+ + + + + | | | | Diagnoses | | [facility] | | | | | Crohn's | | Intra Op [address] | | | | | disease | | [address] | | | | | without | | [place], | | | | | complication | | [place] [address] | | | | | , | | Phone: | | | | | unspecified | | [phone] | | | | | gastrointest | | Fax: | | | | | inal tract | | [phone] | | | | | location | | | | | | | (HCC) | | | | | | | Bloody | | | | | | | stools | | | | | | | Nausea and | | | | | | | vomiting, | | | | | | | unspecified | | | | | | | intactabilit | | | | | | | y, vomiting | | | | | | | of | | | | | | | unspecified | | | | | | | type | | | | | | | Narcotic | | | | | | | dependence | | | | | | | (HCC) | | | | | | | Crohn's | | | | | | | disease | | | | | | | without | | | | | | | complication | | | | | | | , | | | | | | | unspecified | | | | | | | gastrointest | | | | | | | inal tract | | | | | | | location | | | | | | | (HCC) | | | | | | | [K50.90], | | | | | | | Bloody | | | | | | | stools | | | | | | | [K92.1], | | | | | | | Nausea and | | | | | | | vomiting, | | | | | | | unspecified | | | | | | | intactabilit | | | | | | | y, vomiting | | | | | | | of | | | | | | | unspecified | | | | | | | type | | | | | | | [R11.2], | | | | | | | Narcotic | | | | | | | dependence | | | | | | | (HCC) | | | | | | | [F11.20], | | | | | | | | | | | | | | Procedures | | | | | | | CO | | | | | | | COLONOSCOPY | | | | | | | FLX DX | | | | | | | W/COLLJ SPEC | | | | | | | WHEN PFRMD | | | | | | | CO | | | | | | | ESOPHAGOGAST | | | | | | | RODUODENOSCO | | | | | | | PY TRANSORAL | | | | | | | DIAGNOSTIC | | | | | | | EGD / | | | | | | | COLONOSCOPY | | | +--------+--------+ + + + + Encounter Details +--------+ + + + + | Date | Type | Department | Care Team | Description | +--------+ + + + + | 04/09/ | Anesthesia | [facility] | Nima Lynn MD | | | 2016 | Event | MED CTR MP INTRA OP | [address] | | | | | [address] | [place] | | | | | [place] | [address] | | | | | [address] | | | | | | [phone] | | | +--------+ + + + + Anesthesia Record + + + + + | Procedure Name | Responsible | Anesthesia Start | Anesthesia Stop Time | | | Anesthesiologist | Time | | + + + + + | EGD / COLONOSCOPY | Nima Lynn MD | 04/09/16 0930 | 04/09/16 1033 | | (N/A ) | | | | + + + + + +----+---+ + + | Da | T | Event | Comment | | te | i | | | | | m | | | | | e | | | +----+---+ + + | 07 | 0 | | | | /1 | 9 | | | | 3/ | 2 | | | | 20 | 4 | | | | 16 | | | | +----+---+ + + | | 0 | An Checkout | Pre-use anesthesia machine/equipment checkout. | | | 9 | | | | | 2 | | | | | 5 | | | +----+---+ + + | | 0 | An Start | Reassessment prior to anesthesia induction/procedure. | | | 9 | | | | | 3 | | | | | 0 | | | +----+---+ + + | | 0 | An | | | | 9 | Induction | | | | 3 | | | | | 3 | | | +----+---+ + + | | 0 | An Patient | | | | 9 | Move | | | | 3 | | | | | 9 | | | +----+---+ + + | | 0 | An Patient | | | | 9 | Move | | | | 4 | | | | | 3 | | | +----+---+ + + | | 0 | An Patient | | | | 9 | Move | | | | 5 | | | | | 3 | | | +----+---+ + + | | 0 | An Patient | | | | 9 | Move | | | | 5 | | | | | 9 | | | +----+---+ + + | | 1 | an stop | | | | 0 | data | | | | 2 | | | | | 5 | | | +----+---+ + + | | 1 | An Stop | Patient handed off to recovery nurse. | | | 3 | | | | | 3 | | | +----+---+ + + +------+ | Meds | +------+ + + + | Name | Total | + + + | propofol | 360 mg | + + + | propofol | 426.24 mg | + + + | lidocaine 2% | 20 mg | + + + | lactated ringers (LR) infusion | 800 mL | + + + + + | Name | + + | O2 Flow Rate (L/Min) | + + + + | No blood administrations on file. | + + +--------+ + + + | Type | Details | Placement | Removal | +--------+ + + + | Periph | 04/09/16; 0844; Left; Wrist; | 04/09/16 0844 by | 04/09/16 1155 by | | eral | xfqa-qhi-prpttn catheter system; | AGUSTIN SCHULTE | Radha Price | | IV | 20 gauge, 1 1/4 in length; | | ADITI Lr | | | intradermal injection, topical | | | | | anesthetic spray applied, | | | | | tolerated well; no longer | | | | | indicated, removed per | | | | | policy/procedure, catheter/device | | | | | intact; healing within | | | | | expectations; 04/09/16; 1155 | | | +--------+ + + + documented in this encounter Social History + + + +--------+ + [...] Visit Diagnoses Not on filedocumented in this encounter Administered Medications + +--------+ +-------+------+------+ | Medication Order | MAR | Action | Dose | Rate | Site | | | Action | Date | | | | + +--------+ +-------+------+------+ | lidocaine (PF) 2% injection | Given | 04/09/20 | 20 mg | | | | Intravenous, PRN, Starting Wed | | 16 9:33 | | | | | 04/09/16 at 0933, Anesthesia | | AM PDT | | | | | Intra-op | | | | | | + +--------+ +-------+------+------+ +---+---+ | | | +---+---+ + +-------+ +-------+---+---+ | propofol (DIPRIVAN) injection | Given | 04/09/20 | 40 mg | | | | Intravenous, PRN, Starting Wed | | 16 9:59 | | | | | 04/09/16 at 0933, Anesthesia | | AM PDT | | | | | Intra-op | | | | | | + +-------+ +-------+---+---+ +-------+ +-------+---+---+ | Given | 04/09/20 | 40 mg | | | | | 16 9:53 | | | | | | AM PDT | | | | +-------+ +-------+---+---+ | Given | 04/09/20 | 40 mg | | | | | 16 9:43 | | | | | | AM PDT | | | | +-------+ +-------+---+---+ +---+---+ | | | +---+---+ + + + + +-------+---+ | propofol (DIPRIVAN) injection | Rate/Dos | 04/09/20 | 180 | 62.2 | | | Intravenous, CONTINUOUS PRN, | e Change | 16 9:49 | mcg/kg/m | mL/hr | | | Starting 04/09/16 at 0936, | | AM PDT | in | | | | Anesthesia Intra-op | | | | | | + + + + +-------+---+ +---------+ + +-------+---+ | New Bag | 04/09/20 | 140 | 48.4 | | | | 16 9:36 | mcg/kg/m | mL/hr | | | | AM PDT | in | | | +---------+ + +-------+---+ +---+---+ | | | +---+---+ documented in this encounter"
--- OUTSIDE RECORDS SUMMARY | ~2019-09-03 | XMS | Encounter Summary ---
Demographics + + + | Address | [address] | | | [place] [address] | + + + | Home Phone | | + + + | Preferred Language | Unknown | + + + | Marital Status | Single | + + + | Oriental Orthodox Affiliation | CHR | + + + | Race | White | + + + | Ethnic Group | Not or | + + + Author + + + | Author | [facility] | + + + | Organization | [facility] | + + + | Address | Unknown | + + + | Phone | Unavailable | + + + Support + + +---------+ + | Name | Relationship | Address | Phone | + + +---------+ + | Thalia Armani | ECON | Unknown | | + + +---------+ + Care Team Providers + +------+ + | Care Inside Sales Engineer Name | Role | Phone | + +------+ + | Meaghan Zhong MD | PCP | | + +------+ + Reason for Visit +--------+ + | Reason | Comments | +--------+ + | Pain | | +--------+ + Encounter Details +--------+ + + + + | Date | Type | Department | Care Team | Description | +--------+ + + + + | 01/01/ | Telephone | Digestive Health | [address], | Pain | | 2016 | | Center at [facility] [address] | | | | | | [place] | | | | | | Mailcode: Center | | | | | | for Health and | | | | | | Healing, [address] | | | | | | [facility] [place] | | | | | | [address] | | | | | | [phone] | | | +--------+ + + + [...]
--- OUTSIDE RECORDS SUMMARY | ~2019-09-03 | XMS | Encounter Summary ---
Demographics + + + | Address | [address] | | | [place] [address] | + + + | Home Phone | | + + + | Preferred Language | Unknown | + + + | Marital Status | Single | + + + | Mandaeism Affiliation | 1013 | + + + | Race | Unknown | + + + | Ethnic Group | Unknown | + + + Author + + + | Author | [facility] | | | and [place] | + + + | Organization | [facility] | | | and [place] [...] Team Providers + +------+ + | Care Construction Executive Name | Role | Phone | + +------+ + PCP | Unavailable | + +------+ + Encounter Details +--------+ + + + + | Date | Type | Department | Care Team | Description | +--------+ + + + + | 10/23/ | Hospital | [facility] | | | | 2010 | Encounter | MED CTR GENERIC OP | | | | | | CONV DEPT [address] | | | | | | [place], | | | | | | [place] [address] | | | | | | [phone] | | | +--------+ + + + [...]
--- OUTSIDE RECORDS SUMMARY | ~2019-09-03 | XMS | Encounter Summary ---
Demographics + + + | Address | [address] | | | [place] [address] | + + + | Home Phone | | + + + | Preferred Language | Unknown | + + + | Marital Status | Single | + + + | Religion Affiliation | CHR | + + + | Race | White | + + + | Ethnic Group | Not or | + + + Author + + + | Author | [facility] | + + + | Organization | [facility] | + + + | Address | Unknown | + + + | Phone | Unavailable | + + + Support + + +---------+ + | Name | Relationship | Address | Phone | + + +---------+ + | Thalia Armani | ECON | Unknown | | + + +---------+ + Care Team Providers + +------+ + | Care Hitch Technician Name | Role | Phone | + +------+ + | Meaghan Zhong MD | PCP | | + +------+ + Reason for Visit + + + | Reason | Comments | + + + | Refill Request | Benji | + + + Encounter Details +--------+--------+ + + + | Date | Type | Department | Care Team | Description | +--------+--------+ + + + | 10/19/ | Refill | Digestive Health | [address], | Refill Request | | 2015 | | [place] at [facility] [address] | | [place]) | | | | [place] | | | | | | Mailcode: Center | | | | | | [facility] and | | | | | | [facility] [address] | | | | | | [place], [place] | | | | | | [address] | | | | | | [phone] | | | +--------+--------+ + + + Social History + + [...]
--- OUTSIDE RECORDS SUMMARY | ~2019-09-03 | XMS | Encounter Summary ---
Demographics + + + | Address | [address] | | | [place] [address] | + + + | Home Phone | | + + + | Preferred Language | Unknown | + + + | Marital Status | Single | + + + | Mandaen Affiliation | 1013 | + + + | Race | Unknown | + + + | Ethnic Group | Unknown | + + + Author + + + | Author | [facility] | | | and [place] | + + + | Organization | [facility] | | | and [place] [...] Team Providers + +------+ + | Care Inspector Coated Fabrics Name | Role | Phone | + [...] | [address], [place] | [place] [address] | | | | | [address] | [phone] | | | | | [phone] | | | +--------+ + + + [...] | | (NULYTELY WITH | dose. DRINK 1/2 PREP | | | | | | FLAVOR PACKS) 420 G | 4 pm Feb , DRINK | | | | | | solution | 2ND HALF PREP 5 am | | | | | | | Fe 19. | | | | | + [...]
--- OUTSIDE RECORDS SUMMARY | ~2019-09-03 | XMS | Encounter Summary ---
Demographics + + + | Address | [address] | | | [place] [address] | + + + | Home Phone | | + + + | Preferred Language | Unknown | + + + | Marital Status | Single | + + + | Lutheran Affiliation | 1013 | + + + | Race | Unknown | + + + | Ethnic Group | Unknown | + + + Author + + + | Author | [facility] | | | and [place] | + + + | Organization | [facility] | | | and [...] Team Providers + +------+ + | Care Store Operations Specialist Name | Role | Phone | + +------+ + | No, Physician | PCP | Unavailable | + +------+ + Reason for Visit +--------+ + | Reason | Comments | +--------+ + | Other | IVCS or Prop | +--------+ + Encounter Details +--------+ + + + + | Date | Type | Department | Care Team | Description | +--------+ + + + + | 02// | Telephone | [facility] | Carmelo Patterson MD | Other (IVCS or Prop) | | 2014 | | GASTROENTEROLOGY | [address] | | | | | [address] [facility] | [place], [place] | | | | | [address] [place], [place] | [address] | | | | | [address] | [phone] | | | | | [phone] | | | +--------+ + + + [...]
--- OUTSIDE RECORDS SUMMARY | ~2019-09-03 | XMS | Encounter Summary ---
Demographics + + + | Address | [address] | | | [place] [address] | + + + | Home Phone | | + + + | Preferred Language | Unknown | + + + | Marital Status | Single | + + + | Taoism Affiliation | 1013 | + + + | Race | Unknown | + + + | Ethnic Group | Unknown | + + + Author + + + | Author | [facility] | | | and [place] | + + + | Organization | [facility] | | | and [place] [...] Team Providers + +------+ + | Care Motion Graphics Artist Name | Role | Phone | + [...] + + | 02// | Telephone | [facility] | Carmelo Patterson MD | Other (IVCS or Prop) | | 2014 | | GASTROENTEROLOGY | [address] | | | | | [address] [facility] | [place], [place] | | | | | [address] [place], [place] | [address] | | | | | [address] | [phone] | | | | | [phone] | | | +--------+ + + + [...]
--- OUTSIDE RECORDS SUMMARY | ~2019-09-03 | XMS | Encounter Summary ---
Demographics + + + | Address | [address] | | | [place] [address] | + + + | Home Phone | | + + + | Preferred Language | Unknown | + + + | Marital Status | Single | + + + | Orthodoxy Affiliation | CHR | + + + | Race | White | + + + | Ethnic Group | Not or | + + + Author + + + | Author | [facility] | + + + | Organization | [facility] | + + + | Address | Unknown | + + + | Phone | Unavailable | + + + Support + + +---------+ + | Name | Relationship | Address | Phone | + + +---------+ + | Thalia Armani | ECON | Unknown | | + + +---------+ + Care Team Providers + +------+ + | Care Film Or Tape Librarian Name | Role | Phone | + +------+ + | Meaghan Zhong MD | PCP | | + +------+ + Encounter Details +--------+ + + + + | Date | Type | Department | Care Team | Description | +--------+ + + + + | 09/20/ | Discharge | UNKNOWN DEPARTMENT | Summary, Discharge | D/C Summary ODDS | | 2006 | Summary-Tra | [address] | | | | | nscribed | [address] | | | | | | [place], [place] | | | | | | [address] | | | +--------+ + + + [...] + + documented as of this encounter Discharge Summaries Dimitrios Giordano S - 11/25/2007 6:48 PM PST [id number] [place] [id number] Admission Date: 09/16/2007 Discharge Date: 09/20/2007 Staff Physician: Bea Parks M.D. The patient was admitted to the [facility]. Principal Final Diagnosis: Unwanted colostomy. Additional Diagnoses: 1. Crohn's disease. 2. Asthma. 3. Hypothyroidism. 4. Ventral or parastomal hernia. Reason for Admission: Mr. Harrell is a 36-year-old gentleman who underwent an exploratory laparotomy and creation of a sigmoid colostomy back in April 2006. Since that time, his Crohn's colitis has been managed with Asacol, and the patient has been doing well. The patient presents for takedown of the unwanted colostomy. Hospital Course: The patient underwent takedown of his colostomy on September 16, 2007. The patient tolerated the procedure well and had no postoperative complications. The patient's pain was well-controlled throughout his hospital admission. He was transitioned off SENIOR ELECTRICAL DESIGNER to oral pain medications. His diet was advanced, and the patient was tolerating an oral diet without difficulty. The patient was afebrile, and vital signs were stable on the date of discharge. The patient will be discharged to home and will continue the wet-to-dry dressing changes of his old ostomy site. The patient was given instruction on how to perform his dressing changes prior to discharge. Condition on Discharge: Good. The patient is afebrile with stable vital signs. Discharge Medication(s): 1. Oxycodone 5 to 15 mg p.o. q.3 hours p.r.n. pain. 2. Colace 100 mg 1 tab p.o. b.i.d. 3. Zantac 150 mg p.o. b.i.d. 4. Mesalamine 1200 mg 1 p.o. daily. 5. Milk of magnesia 30 mL p.o. t.i.d. p.r.n. constipation. 6. The patient is to continue his home dose of levothyroxine 100 mcg p.o. daily. Discharge Instruction(s): Diet: Regular diet as tolerated. Activity: As tolerated. Supplies and Equipments: The patient will be discharged with Kerlix dressings and 4 x 4 gauze to perform wet-to-dry dressing changes of his old ostomy site. Followup: The patient should follow up with Dr. Parks in 3 weeks. The patient is to have his primary care physician to remove his tiffany in 10 days to 2 weeks. Dimitrios Giordano M.D. Bea Parks M.D. [facility] / [id number] / [id number] / [id number] / Reviewed or Edited By Dimitrios Giordano M.D. on 09-29-2007 Electronically signed by Bea Parks 11-25-2007 03:43:16 PM documented in this enco unter Plan of Treatment Not on filedocumented as of this encounter Visit Diagnoses Not on filedocumented in this encounter"
--- OUTSIDE RECORDS SUMMARY | ~2019-09-03 | XMS | Encounter Summary ---
Demographics + + + | Address | [address] | | | [place] [address] | + + + | Home Phone | | + + + | Preferred Language | Unknown | + + + | Marital Status | Single | + + + | Alevism Affiliation | 1013 | + + + | Race | Unknown | + + + | Ethnic Group | Unknown | + + + Author + + + | Author | [facility] | | | and [place] | + + + | Organization | [facility] | | | and [place] [...] Team Providers + +------+ + | Care Security Field Supervisor Name | Role | Phone | + +------+ + | No, Physician | PCP | Unavailable | + +------+ + Encounter Details +--------+ + + + + | Date | Type | Department | Care Team | Description | +--------+ + + + + | 02/21/ | Hospital | [facility] | Emily Green, | | | 2014 | Encounter | [facility] | DO [address] | | | | | [facility] [address] | [facility] [address] | | | | | [address] [place], | [phone] | | | | | [place] [address] | | | | | | [phone] | | | +--------+ + + + [...]
--- OUTSIDE RECORDS SUMMARY | ~2019-09-03 | XMS | Encounter Summary ---
Demographics + + + | Address | [address] | | | [place] [address] | + + + | Home Phone [...] Organization | [facility] | | | and [place] [...] Team Providers + +------+ + | Care Director Of Emergency Nursing Name | Role | Phone | + +------+ + | Emily Green DO | PCP | | + +------+ + Reason for Visit +--------+ + | Reason | Comments | +--------+ + | Other | crohn's | +--------+ + Evaluate & Treat (Routine) +--------+--------+ + + + + | Status | Reason | Specialty | Diagnoses / | Referred By | Referred To | | | | | Procedures | Contact | Contact | +--------+--------+ + + + + | Closed | | Gastroenterol | Diagnoses | [place], | [facility] | | | | ogy | Crohn's | Emily De La Garza DO | Gastroenterol | | | | | disease, | [address] | o[address] | | | | | unspecified, | [place], | [address] | | | | | without | [place] [address] | [address] | | | | | complication | Phone: | [place] | | | | | s ([facility]) | [phone] | [address] | | | | | Procedures | Fax: | Phone: | | | | | office visit | [phone] | [phone] | | | | | | | Fax: | | | | | | | [phone] | +--------+--------+ + + + + Encounter Details +--------+---------+ + + + | Date | Type | Department | Care Team | Description | +--------+---------+ + + + | 01/20/ | Office | [facility] | Carmelo Patterson MD | Abdominal pain, | | 2016 | Visit | GASTROENTEROLOGY | [address] | unspecified | | | | [address] | [place], [place] | abdominal location | | | | [address] [place], [place] | [address] | (Primary Dx); | | | | [address] | [phone] | Crohn's disease with | | | | [phone] | | complication, | | | | | | unspecified | | | | | | gastrointestinal | | | | | | tract location (HCC) | +--------+---------+ + + + Social History [...] + + + | Blood Pressure | 110/86 | 01/21/2016 1:55 PM | | | | | PDT | | + + + + + | Pulse | 84 | 01/21/2016 1:55 PM | | | | | PDT | | + + + + + | Temperature | 36.9 C (98.4 F) | 01/21/2016 1:55 PM | | | | | PDT | | + + + + + | Respiratory Rate | 16 | 01/21/2016 1:55 PM | | | | | PDT | | + + + + + | Oxygen Saturation | 96% | 01/21/2016 1:55 PM | | | | | PDT | | + + + + + | Inhaled Oxygen | - | - | | | Concentration | | | | + + + + + | Weight | 57.5 kg (126 lb 11.2 | 01/21/2016 1:55 PM | | | | oz) | PDT | | + + + + + | Height | - | - | | + + + + + | Body Mass Index | 22.45 | 01/15/2016 8:30 AM | | | | | PDT | | + + + + + documented in this encounter Functional Status + + + [...] | Diagnosis | + + | Abdominal pain, unspecified abdominal location - Primary | + + | Crohn's disease with complication, unspecified gastrointestinal tract location (HCC) | + + documented in this encounter"
--- OUTSIDE RECORDS SUMMARY | ~2019-09-03 | XMS | Encounter Summary ---
Demographics + + + | Address | [address] | | | [place] [address] | + + + | Home Phone | | + + + | Preferred Language | Unknown | + + + | Marital Status | Single | + + + | Christianity Affiliation | 1013 | + + + | Race | Unknown | + + + | Ethnic Group | Unknown | + + + Author + + + | Author | [facility] | | | and [place] | + + + | Organization | [facility] | | | and [place] [...] Team Providers + +------+ + | Care Hog Worker Name | Role | Phone | + +------+ + | No, Physician | PCP | Unavailable | + +------+ + Encounter Details +--------+ + + + + | Date | Type | Department | Care Team | Description | +--------+ + + + + | 11/18/ | Emergency | [facility] | Levi Hoffmann, | Left upper quadrant | | 2016 - | | [facility]ICAL [facility]ENTER | MD Dereck PATEL | pain; | | | | [facility] | [place] [address] | Non-intractable | | 11/19/ | | [address] | | vomiting with | | 2016 | | [place] | | nausea, vomiting of | | | | [address] | | unspecified type | | | | [phone] | | | +--------+ + + + [...] + + + | Blood Pressure | 128/73 | 11/19/2015 12:37 AM | | | | | PST | | + + + + + | Pulse | 58 | 11/19/2015 12:37 AM | | | | | PST | | + + + + + | Temperature | 36.8 C (98.3 F) | 11/19/2015 12:37 AM | | | | | PST | | + + + + + | Respiratory Rate | 16 | 11/19/2015 12:37 AM | | | | | PST | | + + + + + | Oxygen Saturation | - | - | | + + + + + | Inhaled Oxygen | - | - | | | Concentration | | | | + + + + + | Weight | 58.3 kg (128 lb 8.5 | 11/19/2015 12:37 AM | | | | oz) | PST | | + + + + + | Height | 157.5 cm (5' 2") | 11/19/2015 12:37 AM | | | | | PST | | + + + + + | Body Mass Index | 23.51 | 11/19/2015 12:37 AM | | | | | PST | [...] | + +--------+ + + + | XR ABDOMEN AP | Routin | 11/18/2015 | | Results for this | | UPRIGHT KUB AND PA | e | 11:05 PM | | procedure are in the | | CHEST | | PST | | results section. | + +--------+ + + + | EXTERNAL LAB: CBC | Routin | 11/18/2015 | | Results for this | | | e | 10:28 PM | | procedure are in the | | | | PST | | results section. | + +--------+ + + + | PROTIME INR | Routin | 11/18/2015 | | Results for this | | | e | 10:28 PM | | procedure are in the | | | | PST | | results section. | + +--------+ + + + | C-REACTIVE PROTEIN | Routin | 11/18/2015 | | Results for this | | | e | 10:28 PM | | procedure are in the | | | | PST | | results section. | + +--------+ + + + | MAGNESIUM | Routin | 11/18/2015 | | Results for this | | | e | 10:28 PM | | procedure are in the | | | | PST | | results section. | + +--------+ + + + | LIPASE | Routin | 11/18/2015 | | Results for this | | | e | 10:28 PM | | procedure are in the | | | | PST | | results section. | + +--------+ + + + | COMPREHENSIVE | Routin | 11/18/2015 | | Results for this | | METABOLIC PANEL | e | 10:28 PM | | procedure are in the | | | | PST | | results section. | + +--------+ + + + documented in this encounter Results XR Abd Supine and Upright w 1 Vw Chest (11/18/2015 11:05 PM PST) + + | Specimen | + + | | + + + + + | Impressions | Performed At | + + + | 1. No acute findings in the abdomen. Possible constipation. | | | | | + + + + + + | Narrative | Performed At | + + + | [facility] 11/18/2015 11:05 PM | | | HISTORY: Abdominal pain. TECHNIQUE: Acute abdomen series | | | including one view of the chest and 2 views of the abdomen. | | | FINDINGS: No comparison. No evidence of free air under the diaphragm. | | | No evidence of free air under the diaphragm. Surgical clips in the | | | right upper quadrant, probably from cholecystectomy. Small soft tissue | | | calcification in the right flank, probably an injection granuloma. | | | The bowel gas pattern appears unremarkable. There is no bowel | | | distention or air-fluid levels to suggest obstruction. Presumed | | | phlebolith in the right pelvis. Increased stool in the colon may | | | indicate constipation. | | + + + + + | Procedure Note | + + | Gideon, Rad Conversion - 05/12/2019 5:37 PM [facility] ABDOMEN ACUTE | | SERIES11/18/2015 11:05 PM HISTORY:Abdominal pain. TECHNIQUE:Acute abdomen series | | including one view of the chest and 2 views of the abdomen. FINDINGS:No comparison. No | | evidence of free air under the diaphragm. No evidence of free air under the diaphragm. | | Surgical clips in the right upper quadrant, probably from cholecystectomy. Small soft | | tissue calcification in the right flank, probably an injection granuloma. The bowel gas | | pattern appears unremarkable. There is no bowel distention or air-fluid levels to | | suggest obstruction. Presumed phlebolith in the right pelvis. Increased stool in the | | colon may indicate constipation. IMPRESSION: 1. No acute findings in the abdomen. | | Possible constipation. | | 6:54 AM | |No comparison. No evidence of free air under the diaphragm. No evidence of free air under t he diaphragm. Surgical clips in the right upper quadrant, probably from cholecystectomy. Sma ll soft tissue calcification in the | |right flank, probably an injection | |granuloma. The bowel gas pattern appears unremarkable. There is no bowel distention or air- fluid levels to suggest obstruction. Presumed phlebolith in the right pelvis. Increased stoo l in the colon may indicate constipation. | | | |IMPRESSION: | |1. No acute findings in the abdomen. Possible constipation. | | | | | + + Protime INR (11/18/2015 10:28 PM PST) + + + + + + | Component | Value | Ref Range | Performed | Pathologist | | | | | At | Signature | + + + + + + | INR | 1.1Comment: REFERENCE | | EXTERNAL | | | | RANGE:0.9 - 1.2 | | LAB | | | | NON-ANTICOAGULATED2.0 | | | | | | - 3.0 ALL OTHER | | | | | | THERAPEUTIC | | | | | | INDICATIONS2.5 - 3.5 | | | | | | MECHANICAL HEART VALVES, | | | | | | RECURRENT OR SYSTEMIC | | | | | | EMBOLISMTesting | | | | | | performed at [facility], [address] | | | | | [address] [place], | | | | | | [place] [address] | | | | + + + + + + + + | Specimen | + + | Blood specimen | | (specimen) | + + + +---------+ + + | Performing | Address | City/State/Zipcode | Phone Number | | Organization | | | | + +---------+ + + | EXTERNAL LAB | | | | + +---------+ + + External Lab: CBC (11/18/2015 10:28 PM PST) + + + + + + | Component | Value | Ref Range | Performed | Pathologist | | | | | At | Signature | + + + + + + | WBC | 7.82Comment: Testing | 3.80 - 11.00 | EXTERNAL | | | | performed at [facility], [address] | K/uL | LAB | | | | [address] [place], | | | | | | [place] [address] | | | | + + + + + + | RED CELL | 4.48Comment: Testing | 4.20 - 5.70 | EXTERNAL | | | COUNT | performed at [facility], [address] | M/uL | LAB | | | | [address] [place], | | | | | | [place] [address] | | | | + + + + + + | Hgb | 15.2Comment: Testing | 13.2 - 17.0 | EXTERNAL | | | | performed at [facility], [address] | g/dL | LAB | | | | [address] [place], | | | | | | [place] [address] | | | | + + + + + + | Hematocrit, | 44.0Comment: Testing | 39.0 - 50.0 % | EXTERNAL | | | POC | performed at [facility], [address] | | LAB | | | | [address] [place], | | | | | | [place] [address] | | | | + + + + + + | MCV | 98.2Comment: Testing | 80.0 - 100.0 fl | EXTERNAL | | | | performed at [facility], [address] | | LAB | | | | [address] [place], | | | | | | [place] [address] | | | | + + + + + + | MCH | 33.9Comment: Testing | 27.0 - 34.0 pg | EXTERNAL | | | | performed at [facility], [address] | | LAB | | | | [address] [place], | | | | | | [place] [address] | | | | + + + + + + | MCHC | 34.6Comment: Testing | 32.0 - 35.5 | EXTERNAL | | | | performed at [facility], [address] | g/dL | LAB | | | | [address] [place], | | | | | | [place] [address] | | | | + + + + + + | RDW-CV | 44.6Comment: Testing | 37 - 53 fl | EXTERNAL | | | | performed at [facility], [address] | | LAB | | | | [address] [place], | | | | | | [place] [address] | | | | + + + + + + | Platelet | 247Comment: Testing | 150 - 400 K/uL | EXTERNAL | | | Count | performed at [facility], [address] | | LAB | | | Plasma | [address] [place], | | | | | | [place] [address] | | | | + + + + + + | MPV | 7.8Comment: Testing | fl | EXTERNAL | | | | performed at [facility], [address] | | LAB | | | | [address] [place], | | | | | | [place] [address] | | | | + + + + + + | Differentia | AUTOMATEDComment: | | EXTERNAL | | | l Type | Testing performed at | | LAB | | | | [facility], [address], | | | | | | [place] [address] | | | | + + + + + + | % Segmented | 44.75Comment: Testing | % | EXTERNAL | | | | performed at [facility], [address] | | LAB | | | Neutrophils | [address] [place], | | | | | | [place] [address] | | | | + + + + + + | % | 41.80Comment: Testing | % | EXTERNAL | | | Lymphocytes | performed at [facility], [address] | | LAB | | | | [address] [place], | | | | | | [place] [address] | | | | + + + + + + | % Monocytes | 8.72Comment: Testing | % | EXTERNAL | | | | performed at [facility], [address] | | LAB | | | | [address] [place], | | | | | | [place] [address] | | | | + + + + + + | % | 3.60Comment: Testing | % | EXTERNAL | | | Eosinophils | performed at [facility], [address] | | LAB | | | | [address] [place], | | | | | | [place] [address] | | | | + + + + + + | % Basophils | 1.13Comment: Testing | % | EXTERNAL | | | | performed at [facility], [address] | | LAB | | | | [address] [place], | | | | | | [place] [address] | | | | + + + + + + | Absolute | 3.50Comment: Testing | 1.90 - 7.40 | EXTERNAL | | | Segmented | performed at [facility], [address] | K/uL | LAB | | | Neutrophils | [address] [place], | | | | | | [place] [address] | | | | + + + + + + | Absolute | 3.27Comment: Testing | 1.00 - 3.90 | EXTERNAL | | | Lymphocytes | performed at [facility], [address] | K/uL | LAB | | | | [address] [place], | | | | | | [place] [address] | | | | + + + + + + | Absolute | 0.68Comment: Testing | 0.00 - 0.80 | EXTERNAL | | | Monocytes | performed at [facility], [address] | K/uL | LAB | | | | [address] [place], | | | | | | [place] [address] | | | | + + + + + + | Absolute | 0.28Comment: Testing | 0.00 - 0.50 | EXTERNAL | | | Eosinophils | performed at [facility], [address] | K/uL | LAB | | | | [address] [place], | | | | | | [place] [address] | | | | + + + + + + | Absolute | 0.09Comment: Testing | 0.00 - 0.10 | EXTERNAL | | | Basophils | performed at [facility], [address] | K/uL | LAB | | | | [address] [address], | | | | | | [place] [address] | | | | + + + + + + + + | Specimen | + + | Blood specimen | | (specimen) | + + + +---------+ + + | Performing | Address | City/State/Zipcode | Phone Number | | Organization | | | | + +---------+ + + | EXTERNAL LAB | | | | + +---------+ + + C-Reactive Protein (11/18/2015 10:28 PM PST) + + + + + + | Component | Value | Ref Range | Performed | Pathologist | | | | | At | Signature | + + + + + + | CRP | <0.2Comment: Testing | mg/dL | EXTERNAL | | | | performed at [facility], [address] | | LAB | | | | [address] [address], | | | | | | [place] [address] | | | | + + + + + + + + | Specimen | + + | Blood specimen | | (specimen) | + + + +---------+ + + | Performing | Address | City/State/Zipcode | Phone Number | | Organization | | | | + +---------+ + + | EXTERNAL LAB | | | | + +---------+ + + Magnesium (11/18/2015 10:28 PM PST) + + + + + + | Component | Value | Ref Range | Performed | Pathologist | | | | | At | Signature | + + + + + + | Magnesium | 2.1Comment: Testing | 1.7 - 2.4 mg/dL | EXTERNAL | | | | performed at [facility], [address] | | LAB | | | | [address] [place] [address], | | | | | | [place] [address] | | | | + + + + + + + + | Specimen | + + | Blood specimen | | (specimen) | + + + +---------+ + + | Performing | Address | City/State/Zipcode | Phone Number | | Organization | | | | + +---------+ + + | EXTERNAL LAB | | | | + +---------+ + + Lipase (11/18/2015 10:28 PM PST) + + + + + + | Component | Value | Ref Range | Performed | Pathologist | | | | | At | Signature | + + + + + + | Lipase | 113Comment: Testing | 73 - 393 U/L | EXTERNAL | | | | performed at [facility], [address] | | LAB | | | | [address] [place] [address], | | | | | | [place] [address] | | | | + + + + + + + + | Specimen | + + | Blood specimen | | (specimen) | + + + +---------+ + + | Performing | Address | City/State/Zipcode | Phone Number | | Organization | | | | + +---------+ + + | EXTERNAL LAB | | | | + +---------+ + + Comprehensive Metabolic Panel (11/18/2015 10:28 PM PST) + + + + + + | Component | Value | Ref Range | Performed | Pathologist | | | | | At | Signature | + + + + + + | Na | 143Comment: Testing | 135 - 143 | EXTERNAL | | | | performed at [facility], [address] | mmol/L | LAB | | | | [address] [place], | | | | | | [place] [address] | | | | + + + + + + | K | 4.2Comment: Testing | 3.5 - 4.9 | EXTERNAL | | | | performed at [facility], [address] | mmol/L | LAB | | | | [address] [place], | | | | | | [place] [address] | | | | + + + + + + | Cl | 105Comment: Testing | 99 - 109 mmol/L | EXTERNAL | | | | performed at [facility], [address] | | LAB | | | | [address] [place], | | | | | | [place] [address] | | | | + + + + + + | CO2 | 29Comment: Testing | 23 - 32 mmol/L | EXTERNAL | | | | performed at [facility], [address] | | LAB | | | | [address] [place], | | | | | | [place] [address] | | | | + + + + + + | Anion Gap | 13Comment: Testing | 5 - 20 mmol/L | EXTERNAL | | | | performed at [facility], [address] | | LAB | | | | [address] [place], | | | | | | [place] [address] | | | | + + + + + + | Glucose, | 90Comment: Testing | 65 - 99 mg/dL | EXTERNAL | | | Fasting | performed at [facility], [address] | | LAB | | | | [address] [place], | | | | | | [place] [address] | | | | + + + + + + | BUN | 11Comment: Testing | 8 - 25 mg/dL | EXTERNAL | | | | performed at [facility], [address] | | LAB | | | | [address] [place], | | | | | | [place] [address] | | | | + + + + + + | Creatinine | 1Comment: Testing | 0.70 - 1.30 | EXTERNAL | | | | performed at [facility], [address] | mg/dL | LAB | | | | [address] [place], | | | | | | [place] [address] | | | | + + + + + + | BUN/Creatin | 11Comment: Testing | | EXTERNAL | | | ine Ratio | performed at [facility], [address] | | LAB | | | | [address] [place], | | | | | | [place] [address] | | | | + + + + + + | Calcium | 8.8Comment: Testing | 8.5 - 10.5 | EXTERNAL | | | | performed at [facility], [address] | mg/dL | LAB | | | | [address] [place], | | | | | | [place] [address] | | | | + + + + + + | Protein, | 6.6Comment: Testing | 6.3 - 8.2 g/dL | EXTERNAL | | | Total | performed at [facility], [address] | | LAB | | | | [address] [place], | | | | | | [place] [address] | | | | + + + + + + | Albumin | 3.8Comment: Testing | 3.6 - 5.0 g/dL | EXTERNAL | | | | performed at [facility], [address] | | LAB | | | | [address] [place], | | | | | | [place] [address] | | | | + + + + + + | Globulin | 2.8Comment: Testing | 1.3 - 4.9 g/dL | EXTERNAL | | | | performed at [facility], [address] | | LAB | | | | [address] [place], | | | | | | [place] [address] | | | | + + + + + + | A/G Ratio | 1.4Comment: Testing | 1.0 - 2.4 | EXTERNAL | | | | performed at [facility], [address] | | LAB | | | | [address] [place], | | | | | | [place] [address] | | | | + + + + + + | Bilirubin | 0.4Comment: Testing | 0.1 - 1.5 mg/dL | EXTERNAL | | | Total | performed at [facility], [address] | | LAB | | | | [address] [place], | | | | | | [place] [address] | | | | + + + + + + | ALP, | 106Comment: Testing | 35 - 115 U/L | EXTERNAL | | | External | performed at [facility], [address] | | LAB | | | | [address] [place], | | | | | | [place] [address] | | | | + + + + + + | AST | 23Comment: Testing | 10 - 45 U/L | EXTERNAL | | | | performed at [facility], [address] | | LAB | | | | [address], [place], | | | | | | [place] [address] | | | | + + + + + + | ALT | 39Comment: Testing | 10 - 65 U/L | EXTERNAL | | | | performed at [facility], [address] | | LAB | | | | [address], | | | | | | [place] [address] | | | | + + + + + + | Estimated | >60Comment: GFR <60: | mL/min/1.73m2 | EXTERNAL | | | GFR | CHRONIC KIDNEY DISEASE, | | LAB | | | | IF FOUND OVER A 3 MONTH | | | | | | PERIOD.GFR <15: KIDNEY | | | | | | FAILURE.FOR | | | | | | AMERICANS, MULTIPLY THE | | | | | | CALCULATED GFR BY | | | | | | 1.210.Testing performed | | | | | | at [facility], [address] | | | | | [place], [place] | | | | | | [address] | | | | + + + + + + + + | Specimen | + + | Blood specimen | | (specimen) | + + + +---------+ + + | Performing | Address | City/State/Zipcode | Phone Number | | Organization | | | | + +---------+ + + | EXTERNAL LAB | | | | + +---------+ + + documented in this encounter Visit Diagnoses + + | Diagnosis | + + | Left upper quadrant pain Abdominal pain, left upper quadrant | + + | Non-intractable vomiting with nausea, vomiting of unspecified type | + + documented in this encounter
--- OUTSIDE RECORDS SUMMARY | ~2019-09-03 | XMS | Encounter Summary ---
Demographics + + + | Address | [address] | | | [place] [address] | + + + | Home Phone | | + + + | Preferred Language | Unknown | + + + | Marital Status | Single | + + + | Muslim Affiliation | 1013 | + + + | Race | Unknown | + + + | Ethnic Group | Unknown | + + + Author + + + | Author | [facility] | | | and [place] | + + + | Organization | [facility] | | | and [place] | [...] Team Providers + +------+ + | Care Lap Welder Name | Role | Phone | + +------+ + | Emily Green DO | PCP | | + +------+ + Encounter Details +--------+ + + + + | Date | Type | Department | Care Team | Description | +--------+ + + + + | 08/19/ | Hospital | [facility] | Emily Green, | | | 2016 | Encounter | [facility] | DO [address] [place] | | | | | [facility] [address] | [place] [address] | | | | | [address] [place], | [phone] | | | | | [place] [address] | | | | | | [phone] | | | +--------+ + + + [...] + + + +---------+ + + | citalopram | Take 40 mg by mouth | | 0 | | | | (CELEXA) 40 mg | Daily. | | | | | | tablet [...] + +---------+ + + | mesalamine | Take 1,200 mg by | | 0 | | | | (LIALDA) 1.2 G EC | mouth 2 times daily. | | | | | | tablet [...] + + + +---------+ + + | rOPINIrole | Take 5 mg by mouth | | 0 | | | | (REQUIP) 5 MG tablet | nightly. | | | | | + + + +---------+ + + | omeprazole | Take 1 capsule by | 90 | 3 | 04/10/20 | | | (PRILOSEC) 20 mg | mouth every morning | capsule | | 16 | 7 | | capsule | (before breakfast). | | | | | + + + +---------+ + + documented as of this encounter Plan of Treatment Not on filedocumented as of this encounter Visit Diagnoses Not on filedocumented in this encounter"
--- OUTSIDE RECORDS SUMMARY | ~2019-09-03 | XMS | Encounter Summary ---
Demographics + + + | Address | [address] | | | [place] [address] | + + + | Home Phone | | + + + | Preferred Language | Unknown | + + + | Marital Status | Single | + + + | Zoroastrian Affiliation | 1013 | + + + | Race | Unknown | + + + | Ethnic Group | Unknown | + + + Author + + + | Author | [facility] | | | and [place] | + + + | Organization | [facility] | | | and [place] [...] Team Providers + +------+ + | Care Burling And Joining Supervisor Name | Role | Phone | [...] | | | disease | | [address] | | | | | without | | Naeem [place], | | | | | complication | | [place] [phone] | | | | | , | | Phone: | | | | | unspecified | | [phone] | | | | | gastrointest | | Fax: | | | | | inal tract | | [phone] | | | | | location | [...] | | | | | | | [place] | | | | | | | COLONOSCOPY | | | | | | | FLX DX | | | | | | | W/COLLJ SPEC | | | | | | | WHEN PFRMD | | | | | | | [place] | | | | | | | [...] Description | +--------+---------+ + + + | 04/09/ | Surgery | [facility] | Carmelo Patterson MD | EGD / COLONOSCOPY | | 2016 | | MED CTR MP INTRA OP | [address] | | | | | [address] | [place] | | | | | [place] | [address] | | | | | [address] | [phone] | | | | | [phone] | | | +--------+---------+ + + + Social History [...] + + + | Blood Pressure | 137/80 | 04/09/2016 11:20 AM | | | | | PDT | | + + + + + | Pulse | 46 | 04/09/2016 11:25 AM | | | | | PDT | | + + + + + | Temperature | 36.4 C (97.5 F) | 04/09/2016 10:31 AM | | | | | PDT | | + + + + + | Respiratory Rate | 14 | 04/09/2016 11:20 AM | | | | | PDT | | + + + + + | Oxygen Saturation | 98% | 04/09/2016 11:25 AM | | | | | PDT | | + + + + + | Inhaled Oxygen | - | - | | | Concentration | | | | + + + + + | Weight | 57.6 kg (127 lb) | 04/09/2016 8:00 AM | | | | | PDT | | + + + + + | Height | 157.5 cm (5' 2") | 04/09/2016 8:00 AM | | | | | PDT | | + + + + + | Body Mass Index | 23.23 | 04/09/2016 8:00 AM | | | | | PDT [...] + documented as of this encounter Discharge Instructions Instructions Radha Lr RN - 04/08/2016Patient Discharge Instructions after a n Endoscopy Procedure ? You may resume your regular diet after discharge. ? Do not drive, operate machinery, make critical decisions or do activities that require co ordination or balance for 24hrs. ? Resume normal medications unless otherwise instructed. ? If biopsies were taken, the physician s office will contact you within 7-10 days. ? If a colonoscopy was performed, then you may continue to expel large amounts of air from your rectum. Please call the physician who did your procedure at [phone] if you have any questions or experience any of the following: ? Increasing abdominal pain, nausea, or vomiting. ? Chills and fever over 101F. ? New abdominal swelling or bloating. ? Signs of rectal bleeding (black or red stool). If you cannot get a hold of your physician, then call the [facility] [phone] . If necessary, report to the Emergency Department at [facility]. Quit smoking: If you smoke or have [...] + | EGD / COLONOSCOPY | | 04/09/2016 | Crohn's disease | | | | | 9:27 AM | without | | | | | PDT | complication, | | | | | | unspecified | | | | | | gastrointestinal | | | | | | tract location (HCC) | | | | | | Bloody stools | | | | | | Nausea and vomiting, | | | | | | unspecified | | | | | | intactability, | | | | | | vomiting of | | | | | | unspecified type | | | | | | Narcotic dependence | | | | | | (HCC) | | + +--------+ + + + | EGD | Routin | 04/09/2016 | | Results for this | | | e | 9:17 AM | | procedure are in the | | | | PDT | | results section. | + +--------+ + + + | COLONOSCOPY | Routin | 04/09/2016 | | Results for this | | | e | 9:15 AM | | procedure are in the | | | | PDT | | results section. | + +--------+ + + + | SURGICAL PATHOLOGY | Routin | 04/09/2016 | | Results for this | | EXAM | e | 12:00 AM | | procedure are in the | | | | PDT | | results section. | + +--------+ + + + documented in this encounter Results EGD (04/09/2016 9:17 AM PDT) + + | Specimen | + + | | + + + + -+ | Narrative | Performed At | + + -+ | | [facility] | | GastroenterologyPatient Name: Rachid GlezProcedkim Date: | [facility] | | 04/09/2016 9:17 AMMRN: [id number] #: [id number] of : | | | 1970Admit Type: AmbulatoryAge: 45[facility]Gender: MaleNote | | | Status: FinalizedAttending MD: Carmelo Patterson, [facility]ITAL[facility]cedure: | | | Upper GI endoscopyIndications: Nausea with | | | vomitingProviders: Carmelo Patterson MD, Nini | | | ADITI Stewart, Kaylen Hernandez RN, Iraida | | | Stepan, Automatic Pad Making Machine Operator, Nima Lynn MD | | | (Anesthesia Staff)Referring MD: Emily Green (Referring | | | )Medicines: Monitored Anesthesia CareComplications: | | | No immediate complications.Procedure: Pre-Anesthesia | | | Assessment: - Prior to the procedure, a History and Physical was | | | performed, and patient medications and allergies were | | | reviewed. The patient is competent. The risks and benefits of | | | the procedure and the sedation options and risks were discussed | | | with the patient. All questions were answered and informed | | | consent was obtained. Patient identification and proposed | | | procedure were verified by the physician, the nurse, the | | | anesthesiologist and the area intelligence technician in the pre-procedure area in the | | | endoscopy suite. Mental Status Examination: alert and oriented. | | | Airway Examination: normal oropharyngeal airway and neck | | | mobility. Respiratory Examination: clear to auscultation. CV | | | Examination: normal. Prophylactic Antibiotics: The patient does | | | not require prophylactic antibiotics. Prior Anticoagulants: | | | The patient has taken no previous anticoagulant or antiplatelet | | | agents. ASA Grade Assessment: III - A patient with severe | | | systemic disease. After reviewing the risks and benefits, the patient | | | was deemed in satisfactory condition to undergo the procedure. | | | The anesthesia plan was to use monitored anesthesia care (MAC). | | | Immediately prior to administration of medications, the | | | patient was re-assessed for adequacy to receive sedatives. The | | | heart rate, respiratory rate, oxygen saturations, blood | | | pressure, adequacy of pulmonary ventilation, and response to | | | care were monitored throughout the procedure. The physical | | | status of the patient was re-assessed after the procedure. After | | | obtaining informed consent, the endoscope was passed under direct | | | vision. Throughout the procedure, the patient's blood pressure, | | | pulse, and oxygen saturations were monitored continuously. The | | | Endoscope was introduced through the mouth, and advanced to the | | | third part of duodenum. The upper GI endoscopy was | | | accomplished without difficulty. The patient tolerated the | | | procedure well.Findings: LA Grade A (one or more mucosal breaks | | | less than 5 mm, not extending between tops of 2 mucosal folds) | | | esophagitis with no bleeding was found. Biopsies were taken | | | with a cold forceps for histology. Verification of patient | | | identification for the specimen was done by the physician and | | | nurse using the patient's name and date. Estimated blood loss | | | was minimal. A widely patent, non-obstructing and mild | | | Schatzki ring (acquired) was found at the gastroesophageal | | | junction. Biopsies were taken with a cold forceps for | | | histology. Verification of patient identification for the | | | specimen was done by the physician and nurse using the patient's name | | | and date. Estimated blood loss was minimal. Schatzki ring | | | disrupted with cold forceps biopsies. No other | | | significant abnormalities were identified in a careful | | | examination of the esophagus. Diffuse mildly erythematous mucosa | | | without bleeding was found in the entire examined stomach. | | | Biopsies were taken with a cold forceps for histology. | | | Verification of patient identification for the specimen [...] Estimated blood loss was | | | minimal.Impression: - LA Grade A reflux esophagitis. Biopsied. | | | - Widely patent, non-obstructing and mild Schatzki ring. | | | Biopsied. - Erythematous mucosa in the stomach. Biopsied. | | | - Erythematous duodenopathy. Biopsied.Recommendation: - Patient | | | has a contact number available for emergencies. The signs and | | | symptoms of potential delayed complications were discussed with the | | | patient. Return to normal activities tomorrow. Written discharge | | | instructions were provided to the patient. - Regular | | | diet. - Discharge patient to home. - Continue present | | | medications. - Await pathology results. - Return to GI | | | clinic PRN. - The findings and recommendations were discussed | | | with the patient.Carmelo Patterson MD04/09/2016 9:51 AMNumber of | | | Addenda: 0Note Initiated On: 04/09/2016 9:17 AMScope Withdrawal Time: 0 | | | hours 0 minutes 0 seconds Total Procedure Duration: 0 hours 11 | | | minutes 40 seconds Scope In: 9:35:00 AMScope Out: 9:46:40 AM | | | [facility], [address], [place] | | | [address] | | | instructions were provided to the patient. | | | - Regular diet. | | | - Discharge patient to home. | | | - Continue present medications. | | | - Await pathology results. | | | - Return to GI clinic PRN. | | | - The findings and recommendations were discussed with the patient. | | |Carmelo Patterson MD | | |04/09/2016 9:51 AM | | |Number of Addenda: 0 | | |Note Initiated On: 04/09/2016 9:17 AM | | |Scope Withdrawal Time: 0 hours 0 minutes 0 seconds | | |Total Procedure Duration: 0 hours 11 minutes 40 seconds | | |Scope In: 9:35:00 AM | | |Scope Out: 9:46:40 AM | | | [facility], [address], [place] | | | [address] | | + + -+ + +---------+ + + | Performing | Address | City/State/[facility] Centercode | Phone Number | | Organization | | | | + +---------+ + + | [facility] | | | | + +---------+ + + COLONOSCOPY (04/09/2016 9:15 AM PDT) + + | Specimen | + + | | + + + + -+ | Narrative | Performed At | + + -+ | | [facility] | | GastroenterologyPatient Name: Rachid GlezRonald Date: | PROVATION | | 04/09/2016 9:15 AMMRN: [id number] #: [id number] of : | | | 1970Admit Type: AmbulatoryAge: 45Room: [facility] 02Gender: MaleNote | | | Status: FinalizedAttending MD: Carmelo Patterson, MDProcedure: | | | ColonoscopyIndications: Follow-up of Crohn's disease of | | | the colonProviders: Carmelo Patterson MD, Nini | | | ADITI Stewart, Kaylen Hernandez RN, Iraida | | | Stepan, Automatic Pad Making Machine Operator, Nima Lynn MD | | | (Anesthesia Staff)Referring MD: Emily Green (Referring | | | MD)Medicines: Monitored Anesthesia CareComplications: | | | No immediate complications.Procedure: Pre-Anesthesia | | | Assessment: - Prior to the procedure, a History and Physical was | | | performed, and patient medications and allergies were | | | reviewed. The patient is competent. The risks and benefits of | | | the procedure and the sedation options and risks were discussed | | | with the patient. All questions were answered and informed | | | consent was obtained. Patient identification and proposed | | | procedure were verified by the physician, the nurse, the | | | anesthesiologist and the area intelligence technician in the pre-procedure area in the | | | endoscopy suite. Mental Status Examination: alert and oriented. | | | Airway Examination: normal oropharyngeal airway and neck | | | mobility. Respiratory Examination: clear to auscultation. CV | | | Examination: normal. Prophylactic Antibiotics: The patient does | | | not require prophylactic antibiotics. Prior Anticoagulants: | | | The patient has taken no previous anticoagulant or antiplatelet | | | agents. ASA Grade Assessment: III - A patient with severe | | | systemic disease. After reviewing the risks and benefits, the patient | | | was deemed in satisfactory condition to undergo the procedure. | | | The anesthesia plan was to use monitored anesthesia care (MAC). | | | Immediately prior to administration of medications, the | | | patient was re-assessed for adequacy to receive sedatives. The | | | heart rate, respiratory rate, oxygen saturations, blood | | | pressure, adequacy of pulmonary ventilation, and response to | | | care were monitored throughout the procedure. The physical | | | status of the patient was re-assessed after the procedure. After | | | I obtained informed consent, the scope was passed under direct | | | vision. Throughout the procedure, the patient's blood pressure, | | | pulse, and oxygen saturations were monitored continuously. The | | | Colonoscope was introduced through the anus and advanced to the | | | cecum, identified by appendiceal orifice and ileocecal valve. | | | The colonoscopy was somewhat difficult due to restricted | | | mobility of the colon, significant looping, a tortuous colon | | | and the patient's combativeness. The quality of the bowel | | | preparation was fair.Findings: The perianal and digital rectal | | | examinations were normal. Patchy mild inflammation characterized | | | by erosions, erythema, loss of vascularity and shallow | | | ulcerations was found in the rectum. Biopsies were taken with a | | | cold forceps for histology. Verification of patient | | | identification for the specimen was done by the physician and nurse | | | using the patient's name and date. Estimated blood loss | | | was minimal. Two semi-sessile polyps were found in the | | | sigmoid colon. The polyps were 2 to 3 mm in size. Biopsies were | | | taken with a cold forceps for histology. Verification of | | | patient identification for the specimen was done by the | | | physician and nurse using the patient's name and date. | | | Estimated blood loss was minimal. Polyps with appearance of | | | inflammatory polyps. Unable to intubate the terminal ileum due | | | to severe and extensive colonic spasm and patient | | | combativeness.Impression: - Patchy mild inflammation was found | | | in the rectum secondary to proctitis. Biopsied. - Two 2 | | | to 3 mm polyps in the sigmoid colon. Biopsied.Recommendation: - | | | Patient has a contact number available for emergencies. The signs and | | | symptoms of potential delayed complications were discussed with | | | the patient. Return to normal activities tomorrow. Written | | | discharge instructions were provided to the patient. - | | | High fiber diet indefinitely. - Discharge patient to home. | | | - Continue present medications. - Await pathology results. | | | - Repeat colonoscopy in 1 year because the bowel preparation was | | | suboptimal. - Return to GI clinic PRN. - The | | | findings and recommendations were discussed with the patient.Carmelo | | | Erendira Patterson MD04/09/2016 10:31 AMNumber of Addenda: 0Note Initiated On: | | | 04/09/2016 9:15 AMScope Withdrawal Time: 0 hours 24 minutes 58 seconds | | | Total Procedure Duration: 0 hours 31 minutes 10 seconds Scope In: | | | 9:53:11 AMScope Out: 10:24:21 AM [facility] | | | [place], [address] [place] [address] | | | - High fiber diet indefinitely. | | | - Discharge patient to home. | | | - Continue present medications. | | | - Await pathology results. | | | - Repeat colonoscopy in 1 year because the bowel preparation was | | | suboptimal. | | | - Return to GI clinic PRN. | | | - The findings and recommendations were discussed with the patient. | | |Carmelo Patterson MD | | |04/09/2016 10:31 AM | | |Number of Addenda: 0 | | |Note Initiated On: 04/09/2016 9:15 AM | | |Scope Withdrawal Time: 0 hours 24 minutes 58 seconds | | |Total Procedure Duration: 0 hours 31 minutes 10 seconds | | |Scope In: 9:53:11 AM | | |Scope Out: 10:24:21 AM | | | [facility], [address] [facility], [place], [place] | | | [address] | | + + -+ + +---------+ + + | Performing | Address | City/State/Zipcode | Phone Number | | Organization | | | | + +---------+ + + | [facility] | | | | + +---------+ + + Surgical Pathology Exam (04/09/2016 12:00 AM PDT) + + | Specimen | + + | | + + + + + | Narrative | Performed At | + + + | SPECIMEN(S): A DUODENAL BIOPSY SPECIMEN(S): B GASTRIC BIOPSY | [facility] | | SPECIMEN(S): C ESOPHAGEAL BIOPSY SPECIMEN(S): D RIGHT COLON BIOPSY | [facility] | | SPECIMEN(S): E TRANSVERSE COLON BIOPSY SPECIMEN(S): F DESCENDING | | | COLON BIOPSY SPECIMEN(S): G SIGMOID COLON BIOPSY SPECIMEN(S): H | | | RECTAL BIOPSY SPECIMEN(S): I SIGMOID POLYP BIOPSY SPECIMEN | | | SOURCE: A. DUODENAL BIOPSY B. GASTRIC BIOPSY C. ESOPHAGEAL BIOPSY | | | D. RIGHT COLON BIOPSY E. TRANSVERSE COLON BIOPSY F. DESCENDING COLON | | | BIOPSY G. SIGMOID COLON BIOPSY H. RECTAL BIOPSY I. SIGMOID POLYP | | | BIOPSY CLINICAL HISTORY: A. Rule out celiac, rule out Crohn's. | | | B. Rule out gastritis. C. Rule out esophagitis. D-H. Rule out | | | colitis. K50.90 (Crohn's disease, unspecified, without | | | complications), K92.1 (melena), R11.2 (nausea with vomiting, | | | unspecified), F11.20 (opioid dependence, uncomplicated) | | | MICROSCOPIC DESCRIPTION: Histologic sections of all submitted blocks | | | are examined by light microscopy. These findings, together with the | | | gross examination, support the pathologic diagnosis. FINAL | | | PATHOLOGIC DIAGNOSIS: A. Small bowel, duodenum, biopsy: - Small | | | bowel mucosa with mild chronic inflammation. - Negative for | | | increased intraepithelial lymphocytes and villous abnormalities. - | | | Negative for dysplasia and malignancy. B. Stomach, biopsy: - | | | Mild chronic gastritis. - Negative for H. pylori-like organisms | | | on HE stain. C. Esophagus, biopsy: - Squamocolumnar mucosa with | | | mild chronic inflammation and focal exudate, suggestive of | | | ulceration. - Negative for intestinal metaplasia, dysplasia and | | | malignancy. D. Colon, right, biopsy: - Non-active chronic | | | colitis. E. Colon, transverse, biopsy: - Non-active chronic | | | colitis. F. Colon, descending, biopsy: - Non-active chronic | | | colitis. G. Colon, sigmoid, biopsy: - Non-active chronic | | | colitis. H. Colon, rectum, biopsy: - Mild active chronic | | | proctitis. I. Colon, sigmoid, polypectomy: - Changes suggestive | | | of inflammatory pseudopolyp. COMMENT: The patient's clinical | | | history concerning for inflammatory bowel disease is noted. | | | Throughout the bowel there is evidence of chronic colitis; however, | | | the only area of activity is within the rectal biopsy. Clinical and | | | endoscopic correlation is recommended. ARW:[facility]:C2NR GROSS | | | DESCRIPTION: Received in nine parts. A. Received in formalin | | | labeled "Yazdanism Newton" and "duodenal bx" on the requisition are | | | eight pink-owens tissue fragments measuring from 0.1-0.7 cm, submitted, | | | all in (A1). B. Received in formalin labeled "Yazdanism Newton" | | | and "gastric bx" on the requisition are two pink-owens tissue fragments | | | measuring from 0.35-0.55 cm, submitted, all in (B1). C. Received | | | in formalin labeled "Yazdanism Newton" and "esophagus bx" on the | | | requisition are seven pink-owens tissue fragments measuring from | | | <0.1-0.4 cm, submitted, all in (C1). D. Received in formalin | | | labeled "Yazdanism Newton" and "right colon bx" on the requisition | | | are four pink-owens tissue fragments measuring from 0.2-0.5 cm, | | | submitted, all in (D1). | | | E. Received in formalin | | | labeled "Yazdanism Newton" and "transverse colon bx" on the | | | requisition are four pink-owens tissue fragments measuring from 0.4-0.6 | | | cm, submitted all into (E1). F. Received in formalin labeled | | | "Yazdanism Newton" and "descending colon bx" on the requisition are | | | five pink-owens tissue fragments measuring from 0.1-0.8 cm, submitted, | | | all in (F1). G. Received in formalin labeled "Yazdanism Newton" | | | and "sigmoid colon bx" on the requisition are six pink-owens tissue | | | fragments measuring from 0.2-0.5 cm submitted, all in (G1). H. | | | Received in formalin labeled "Yazdanism Newton" and "rectal bx" on | | | the requisition are seven pink-owens tissue fragments measuring from | | | 0.25-0.5 cm, submitted, all in (H1). I. Received in formalin | | | labeled "Yazdanism Newton" and "sigmoid polyp bx" on the requisition | | | are five red-brown fragments measuring from 0.1-0.4 cm, submitted, all | | | in (I1). ka:CLR:[facility] PERFORMING LABORATORY: Tissue processing | | | and slide preparation were performed by [facility], [address] | | [facility] [address], [place] [address] (Mac Operator: Agusto | | | Jayda Mccracken CLIA#: [id number]). Professional interpretation was | | | performed by [facility], [address] | | | [place] [address] (Mac Operator: Agusto Mccracken M.D.; CLIA#: | | | [id number]). Diagnostician: Ruiz Maldonado | | | Electronically Signed 04/10/2016 | | + + + + +---------+ + + | Performing | Address | City/State/Zipcode | Phone Number | | Organization | | | | + +---------+ + + | [facility] | | | | | [facility] | | | | + +---------+ + + documented in this encounter Visit Diagnoses + + | Diagnosis | + + | Crohn's disease without complication, unspecified gastrointestinal tract location | | (HCC) | + + | Bloody stools Blood in stool | + + | Nausea and vomiting, unspecified intactability, vomiting of unspecified type | + + | Narcotic dependence (HCC) Unspecified drug dependence, unspecified | + + documented in this encounter Administered Medications + +---------+ +------+-------+ + | Medication Order | MAR | Action | Dose | Rate | Site | | | Action | Date | | | | + +---------+ +------+-------+ + | lactated ringers (LR) infusion | New Bag | 04/09/20 | | 100 | Left Arm | | at 10-100 mL/hr, Intravenous, | | 16 8:48 | | mL/hr | | | CONTINUOUS, Starting Thu04/09/16 | | AM PDT | | | | | at 0845, TKO., Pre-op | | | | | | + +---------+ +------+-------+ + +---+---+ | | | +---+---+ + +-------+ +------+---+---+ | ondansetron (ZOFRAN) 2 mg/mL | Given | 04/09/20 | 4 mg | | | | injection Starting Thu04/09/16 | | 16 11:41 | | | | | at 1145, For 1 dose, | | AM PDT | | | | | RADHA CORTEZ: go | | | | | | | override, | | | | | | + +-------+ +------+---+---+ +---+---+ | | | +---+---+ documented in this encounter
--- OUTSIDE RECORDS SUMMARY | ~2019-09-03 | XMS | Encounter Summary ---
Demographics + + + | Address | [address] | | | [place] [address] | + + + | Home Phone | | + + + | Preferred Language | Unknown | + + + | Marital Status | Single | + + + | Gnosticist Affiliation | CHR | + + + | Race | White | + + + | Ethnic Group | Not or | + + + Author + + + | Author | [facility] | + + + | Organization | [facility] | + + + | Address | Unknown | + + + | Phone | Unavailable | + + + Support + + +---------+ + | Name | Relationship | Address | Phone | + + +---------+ + | Thalia Armani | ECON | Unknown | | + + +---------+ + Care Team Providers + +------+ + | Care Manager Special Events Name | Role | Phone | + +------+ + | Meaghan Zhong MD | PCP | | + +------+ + Reason for Visit + + + | Reason | Comments | + + + | Medication | | | management | | + + + Encounter Details +--------+ + + + + | Date | Type | Department | Care Team | Description | +--------+ + + + + | 01/20/ | Telephone | [facility] | [address], | Medication | | 2016 | | Center at [facility] [address] | MD | management | | | | [place] | | | | | | Mailcode: [facility] | | | | [facility] | | | | | [facility], [address] | | | | | | [place], [place] | | | | | | [address] | | | | | | [phone] | | | +--------+ + + + [...]
--- OUTSIDE RECORDS SUMMARY | ~2019-09-03 | XMS | Encounter Summary ---
Demographics + + + | Address | [address] | | | [place] [address] | + + + | Home Phone | | + + + | Preferred Language | Unknown | + + + | Marital Status | Single | + + + | Baptist Affiliation | CHR | + + + [...] Team Providers + +------+ + | Care Radio Interference Expert Name | Role | Phone | + [...] + + | 04/09/ | Telephone | Self Storage Manager | Chayito Perez, | Suicidal Ideation | | 2017 | IP | [address] | RESAW TAILER [address] | (follow up by PAT | | | | [address]le [address] [place], | [address] | evening/weekend SW | | | | [place] [address] | [place], [place] | at request of | | | | | [address] | Christopher) | +--------+ + + + [...]
--- OUTSIDE RECORDS SUMMARY | ~2019-09-03 | XMS | Encounter Summary ---
Demographics + + + | Address | [address] | | | [place] [address] | + + + | Home Phone | | + + + | Preferred Language | Unknown | + + + | Marital Status | Single | + + + | Scientology Affiliation | CHR | + + + | Race | White | + + + | Ethnic Group | Not or | + + + Author + + + | Author | [facility] | + + + | Organization | [facility] | + + + | Address | Unknown | + + + | Phone | Unavailable | + + + Support + + +---------+ + | Name | Relationship | Address | Phone | + + +---------+ + | Thalia Armani | ECON | Unknown | | + + +---------+ + Care Team Providers + +------+ + | Care Media Relations Director Name | Role | Phone | + +------+ + | Meaghan Zhong MD | PCP | | + +------+ + Encounter Details +--------+ + + + + | Date | Type | Department | Care Team | Description | +--------+ + + + + | 05/14/ | Orders Only | [facility] | [address], | | | 2014 | | [place] at [facility] [address] | | | | | | [address] [address] | | | | | | Mailcode: [place] | | | | | | [facility] and | | | | | | Healing, [address] | | | | | | [facility] [place] | | | | | | [address] | | | | | | [phone] | | | +--------+ + + + [...]
--- OUTSIDE RECORDS SUMMARY | ~2019-09-03 | XMS | Encounter Summary ---
Demographics + + + | Address | [address] | | | [place] [address] | + + + | Home Phone [...] + + | Author | [facility] | + + + | Organization | [facility] | + + + | Address | Unknown | + + + | Phone | Unavailable | + + + Support + + +---------+ + | Name | Relationship | Address | Phone | + + +---------+ + | Thalia Armani | ECON | Unknown | | + + +---------+ + Care Team Providers + +------+ + | Care Loan Counselor Name | Role | Phone | + +------+ + | Meaghan Zhong MD | PCP | | + +------+ + Reason for Visit + + + | Reason | Comments | + + + | Medication Refill | | + + + Encounter Details +--------+ + + + + | Date | Type | Department | Care Team | Description | +--------+ + + + + | 09/26/ | Telephone | Dig[facility]ive [facility] | [address], | Medication Refill | | 2015 | | [place] [address] 2020 | | | | | | [address] | | | | | | Mailcode: [place] | | | | | | [facility] and | | | | | | [facility] | | | | | | [place], [place] | | | | | | [address] | | | | | | [phone] | | | +--------+ + + + [...]
--- OUTSIDE RECORDS SUMMARY | ~2019-09-03 | XMS | Encounter Summary ---
Demographics + + + | Address | [address] | | | [place] [address] | + + + | Home Phone | | + + + | Preferred Language | Unknown | + + + | Marital Status | Single | + + + | Congregational Affiliation | 1013 | + + + | Race | Unknown | + + + | Ethnic Group | Unknown | + + + Author + + + | Author | [facility] | | | and [place] | + + + | Organization | [facility] | | | and [...] Team Providers + +------+ + | Care Dean Name | Role | Phone | + +------+ + PCP | Unavailable | + +------+ + Encounter Details +--------+ + + + + | Date | Type | Department | Care Team | Description | +--------+ + + + + | 11/16/ | Hospital | [facility] | Herrera Ferrara | | | 2011 | Encounter | HOSPITAL EMERGENCY | MD [address] | | | | | CENTER [address] | [place] | | | | | [place] | [address] | | | | | [address] | [phone] | | | | | [phone] | | | +--------+ + + + [...]
--- OUTSIDE RECORDS SUMMARY | ~2019-09-03 | XMS | Encounter Summary ---
Demographics + + + | Address | [address] | | | [place] [address] | + + + | Home Phone | | + + + | Preferred Language | Unknown | + + + | Marital Status | Single | + + + | Congregation Affiliation | 1013 | + + + | Race | Unknown | + + + | Ethnic Group | Unknown | + + + Author + + + | Author | [facility] | | | and [place] | + + + | Organization | [facility] | | | and [place] [...] Team Providers + +------+ + | Care Head Of Human Resources Name | Role | Phone | + +------+ + PCP | Unavailable | + +------+ + Encounter Details +--------+ + + + + | Date | Type | Department | Care Team | Description | +--------+ + + + + | 07/07/ | Hospital | [facility] | Meaghan Zhong | | | 2010 | Encounter | HOSPITAL MED SURG | [address] | | | | | [address] [place] | [facility], | | | | | [facility], [place] | [place] [address] | | | | | [address] | [phone] | | | | | [phone] | | | +--------+ + + + [...] documented as of this encounter Discharge Summaries Meaghan Zhong MD - 07/07/2011 12:35 PM PDT DISCHARGE SUMMARY DATE OF DISCHARGE: 07/08/2011. DISCHARGE DIAGNOSES: 1. Acute pancreatitis resolved. 2. Crohn's disease. 3. Hypothyroidism. 4. Asthma. 5. History of traumatic brain injury. SUMMARY OF HOSPITAL COURSE: Please refer to my dictated History and Physical for details of his presentation. As noted , this 40-year-old male presented with epigastric abdominal pain. He says the pain was not actually terribly severe but he went to the ER to have it checked because he was already at the hospital to visit his girlfriend. There, he was found to hav e an elevated lipase of about [address] scan. There was some question of thickening of the bowel wall in the sigmoid (but he has had a recent colonoscopy so that was attributed to spasm). 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 His pain improved rapidly and he was basically pain free by evening. The following morning lipase was normal at 199. He had self-discontinued the FENTANYL because it was causing nausea. About a month ago he was seen in the office with abdominal pain and treated with OMEPRAZOLE and he says that did not really work. It is possible he has been having mild episodes of p ancreatitis. SULFASALAZINE is a possible cause of his pancreatitis, so this will be discussed with GI and he will be informed of what medication he needs to take for his Crohn's. In the meantime, however, he is stable for discharge. DISCHARGE MEDICATIONS: 1. LEVOTHYROXINE 175 mcg daily. 2. ALBUTEROL metered-dose inhaler two puffs q.i.d. 3. CITALOPRAM 10 mg daily. DISCHARGE PLAN: He is to follow up with me in 2 weeks, sooner p.r.n., but I will contact him by phone today regarding his SULFASALAZINE. He will follow up sooner, p.r.n. He will follow a lower fat diet. [facility] Signed and Approved by: MEAGHAN ZHONG MD 07/10/2011 08:32:00 documented in this encounter Plan of Treatment Not on filedocumented as of this encounter Visit Diagnoses Not on filedocumented in this encounter"
--- OUTSIDE RECORDS SUMMARY | ~2019-09-03 | XMS | Encounter Summary ---
Demographics + + + | Address | [address] | | | [place] [address] | + + + | Home Phone | | + + + | Preferred Language | Unknown | + + + | Marital Status | Single | + + + | Yazidism Affiliation | CHR | + + + | Race | White | + + + | Ethnic Group | Not or | + + + Author + + + | Author | [facility] | + + + | Organization | [facility] | + + + | Address | Unknown | + + + | Phone | Unavailable | + + + Support + + +---------+ + | Name | Relationship | Address | Phone | + + +---------+ + | Thalia Armani | ECON | Unknown | | + + +---------+ + Care Team Providers + +------+ + | Care Supervisor Liquefaction Name | Role | Phone | + [...] 2016 | | Center at [facility] [address] | MD | management | | | | [address] | | | | | | Mailcode: Center | | | | | | for Health and | | | | | | Healing, [address] | | | | | | [place], [place] | | | | | | [address] | | | | | | [phone] | | | +--------+ + + + [...]
--- OUTSIDE RECORDS SUMMARY | ~2019-09-03 | XMS | Encounter Summary ---
Demographics + + + | Address | [address] | | | [place] [address] | + + + | Home Phone [...] + + + | Author | [facility] | | | and [place] | + + + | Organization | [facility] [...] Team Providers + +------+ + | Care Tool Sharpener Name | Role | Phone | + +------+ + PCP | Unavailable | + +------+ + Encounter Details +--------+ + + + + | Date | Type | Department | Care Team | Description | +--------+ + + + + | 11/02/ | Hospital | [facility] | Nima Sena | | | 2010 | Encounter | HOSPITAL EMERGENCY | MD [address] | | | | | CENTER [address] | [place] | | | | | [address] [place], [place] | [place] [address] | | | | | [address] | [phone] | | | | | [phone] | | | +--------+ + + + [...]
--- OUTSIDE RECORDS SUMMARY | ~2019-09-03 | XMS | Encounter Summary ---
Demographics + + + | Address | [address] | | | [place] [address] | + + + | Home Phone | | + + + | Preferred Language | Unknown | + + + | Marital Status | Single | + + + | Orthodox Affiliation | 1013 | + + + | Race | Unknown | + + + | Ethnic Group | Unknown | + + + Author + + + | Author | [facility] | | | and [place] | + + + | Organization | [facility] | | | and [...] Team Providers + +------+ + | Care Mail Processing Associate Name | Role | Phone | + +------+ + | Emily Green DO | PCP | | + +------+ + Reason for Referral [...] | | | Services | ogy | Crohn's | MD Carmelo | MD Carmelo | | | Required | | disease with | [address] | [address] | | | | | | BLVD | [place], | | | | | complication | [facility] [place] | [place] [address] | | | | | , | [address] | Phone: | | | | | unspecified | Phone: | [phone] | | | | | gastrointest | [phone] | Fax: | | | | | inal tract | Fax: | [phone] | | | | | location | [phone] | | | | | | (HCC) Blood | | | | | | | in stool | | | | | | | Non-intracta | | | | | | | ble vomiting | | | | | | | with | | | | | | | nausea, | | | | | | | vomiting of | | | | | | | unspecified | | | | | | | type Opioid | | | | | | | type | | | | | | | dependence, | | | | | | | continuous | | | | | | | (HCC) | | | | | | | Procedures | | | | | | | DE | | | | | | | COLONOSCOPY | | | | | | | FLX DX | | | | | | | W/COLLJ SPEC | | | | | | | WHEN PFRMD | | | | | | | DE | | | | | | | COLONOSCOPY | | | | | | | W/BIOPSY | | | | | | | SINGLE/MULTI | | | | | | | PLE DE | | | | | | | COLSC FLX | | | | | | | W/RMVL OF | | | | | | | TUMOR POLYP | | | | | | | LESION SNARE | | | | | | | TQ DE | | | | | | | ESOPHAGOGAST | | | | | | | RODUODENOSCO | | | | | | | PY TRANSORAL | | | | | | | DIAGNOSTIC | | | | | | | DE EDG | | | | | | | TRANSORAL | | | | | | | BIOPSY | | | | | | | SINGLE/MULTI | | | | | | | PLE DE | | | | | | | ANESTH,INTES | | | | | | | MARLIN,SCOPE,L | | | | | | | OW DE | | | | | | | ANESTH,UGI | | | | | | | ENDOSCOPY | | | +--------+ + + + + + Encounter Details +--------+ + + + + | Date | Type | Department | Care Team | Description | +--------+ + + + + | 01/21/ | Orders Only | [facility] | Carmelo Patterson MD | Crohn's disease with | | 2015 | | GASTROENTEROLOGY | [address] [facility] | complication, | | | | [address] [facility] | [place], [place] | unspecified | | | | [address] | [address] | gastrointestinal | | | | [address] | [phone] | tract location (HCC) | | | | [phone] | | (Primary Dx); Blood | | | | | | in stool; | | | | | | Non-intractable | | | | | | vomiting with | | | | | | nausea, vomiting of | | | | | | unspecified type; | | | | | | Opioid type | | | | | | dependence, | | | | | | continuous (HCC) | +--------+ + + + + Social [...] + + documented as of this encounter Progress Notes Saritha Hickman RN - 01/22/2016 5:22 PM PDTScheduled for egd/colon with prop (narcotics) on 02/[address] Patterson. Given sample of Suprep and patient has Rx for Zofran. PCP needs to monitor his vitamin D levels, ferritin and do a skin exam per Dr. Patterson. Elect ronically signed by Saritha Hickman RN at 01/22/2016 5:25 PM PDTdocumented in this encounte r Plan of Treatment + + +--------+ + + | Name | Type | Priori | Associated Diagnoses | Order Schedule | | | | ty | | | + + +--------+ + + | Ambulatory referral | Outpatient | Routin | Crohn's Disease | Expected: 02/13/2016 | | to Gastroenterology | Referral | e | With Complication, | (Approximate), | | (LEONARDO) | | | Unspecified | Expires: 01/21/2017 | | | | | Gastrointestinal | | | | | | Tract Location (Hcc) | | | | | | Blood in stool | | | | | | Non-Intractable | | | | | | Vomiting With | | | | | | Nausea, Vomiting Of | | | | | | Unspecified Type | | | | | | Opioid type | | | | | | dependence, | | | | | | continuous (HCC) | | + + +--------+ + + documented as of this encounter Visit Diagnoses + + | Diagnosis | + + | Crohn's disease with complication, unspecified gastrointestinal tract location (HCC) - | | Primary | + + | Blood in stool | + + | Non-intractable vomiting with nausea, vomiting of unspecified type | + + | Opioid type dependence, continuous (HCC) Opioid type dependence, continuous | + + documented in this encounter"
--- OUTSIDE RECORDS SUMMARY | ~2019-09-03 | XMS | Encounter Summary ---
Demographics + + + | Address | [address] | | | [place] [address] | + + + | Home Phone [...] + + + | Author | [facility] | + + + | Organization | [facility] | + + + | Address | Unknown | + + + | Phone | Unavailable | + + + Support + + +---------+ + | Name | Relationship | Address | Phone | + + +---------+ + | Thalia Armani | ECON | Unknown | | + + +---------+ + Care Team Providers + +------+ + | Care Certified Medical Biller Name | Role | Phone | + +------+ + | Meaghan Zhong MD | PCP | | + +------+ + Reason for Visit + + + | Reason | Comments | + + + | Letter Encounter | Letter from patient | | From Patient | | + + + Encounter Details +--------+ + + + + | Date | Type | Department | Care Team | Description | +--------+ + + + + | 05/01/ | Abstract | Digestive Health | [address], | Letter Encounter | | 2017 | | Center at [facility] [address] | MD | From Patient (Letter | | | | [address] | | from patient) | | | | Mailcode: Center | | | | | | for Health and | | | | | | Healing, [address] | | | | | | [place], [place] | | | | | | [address] | | | | | | [phone] | | | +--------+ + + + [...]
--- OUTSIDE RECORDS SUMMARY | ~2019-09-03 | XMS | Encounter Summary ---
Demographics + + + | Address | [address] | | | [place] [address] | + + + | Home Phone | | + + + | Preferred Language | Unknown | + + + | Marital Status | Single | + + + | Latter-Day Affiliation | 1013 | + + + | Race | Unknown | + + + | Ethnic Group | Unknown | + + + Author + + + | Author | [facility] | | | and [place] | + + + | Organization | [facility] | | | and [...] Team Providers + +------+ + | Care Outboard Motorboat Operator Name | Role | Phone | + +------+ + | No, Physician | PCP | Unavailable | + +------+ + Encounter Details +--------+ + + + + | Date | Type | Department | Care Team | Description | +--------+ + + + + | 05/18/ | [facility] | [facility] | Clement Ventura | | | 2013 | Encounter | HOSPITAL EMERGENCY | [address] | | | | | CENTER [address] | [facility] | | | | | [address] [place], [place] | [place] [address] | | | | | [address] | [phone] | | | | | [phone] | | | +--------+ + + + [...] | + +--------+ + + + | URINALYSIS WITH | STAT | 05/18/2014 | | Results for this | | MICROSCOPIC WITH | | 8:05 AM | | procedure are in the | | CULTURE IF INDICATED | | PDT | | results section. | + +--------+ + + + | CBC W/AUTO | STAT | 05/18/2014 | | Results for this | | DIFFERENTIAL | | 8:05 AM | | procedure are in the | | | | PDT | | results section. | + +--------+ + + + | LIPASE | STAT | 05/18/2014 | | Results for this | | | | 8:05 AM | | procedure are in the | | | | PDT | | results section. | + +--------+ + + + | COMPREHENSIVE | STAT | 05/18/2014 | | Results for this | | METABOLIC PANEL | | 8:05 AM | | procedure are in the | | | | PDT | | results section. | + +--------+ + + + documented in this encounter Results Urinalysis with Microscopic with Culture if Indicated (05/18/2014 8:05 AM PDT) + + + + + + | Component | Value | Ref Range | Performed | Pathologist | | | | | At | Signature | + + + + + + | Source | VOIDED | | EXTERNAL | | | | | | LAB | | + + + + + + | Clarity | CLEAR | CLEAR | EXTERNAL | | | | | | LAB | | + + + + + + | Color | YELLOW | YELLOW | EXTERNAL | | | | | | LAB | | + + + + + + | Specific | 1.015 | 1.005 - 1.030 | EXTERNAL | | | [place], | | | LAB | | | Urine | | | | | + + + + + + | pH, Urine | 6 | 5.0 - 7.0 pH | EXTERNAL | | | | | | LAB | | + + + + + + | Leukocyte | NEGATIVE | NEGATIVE /uL | EXTERNAL | | | Esterase, | | | LAB | | | Urine | | | | | + + + + + + | Nitrite, | NEGATIVE | NEGATIVE | EXTERNAL | | | Urine | | | LAB | | + + + + + + | Protein, | NEGATIVE | NEGATIVE mg/dL | EXTERNAL | | | Urine | | | LAB | | + + + + + + | Glucose, | NORMAL | NORMAL mg/dL | EXTERNAL | | | Urine | | | LAB | | + + + + + + | Reducing | NOT REQUIRED | NEGATIVE | EXTERNAL | | | Substance, | | | LAB | | | UA, POC | | | | | + + + + + + | Ketones, | NEGATIVE | NEGATIVE mg/dL | EXTERNAL | | | Urine | | | LAB | | + + + + + + | Urobilinoge | NORMAL | NORMAL mg/dL | EXTERNAL | | | n, Urine | | | LAB | | + + + + + + | Bilirubin, | NEGATIVE | NEGATIVE mg/dL | EXTERNAL | | | Urine | | | LAB | | + + + + + + | Blood, | NEGATIVE | NEGATIVE /uL | EXTERNAL | | | Urine | | | LAB | | + + + + + + | WBC UA | NONE SEEN | </= 5 /HPF | EXTERNAL | | | | | | LAB | | + + + + + + | RBC COUNT | NONE SEEN | </= 5 PER HPF | EXTERNAL | | | | | | LAB | | + + + + + + | Bacteria, | NONE SEEN | NONE SEEN /HPF | EXTERNAL | | | UA | | | LAB | | + + + + + + | Culture | NO | | EXTERNAL | | | Indicated | | | LAB | | + + + + + + | SQUAMOUS | RARE | /LPF | EXTERNAL | | | EPITHELIAL | | | LAB | | | UA | | | | | + + + + + + + + | Specimen | + + | | + + + +---------+ + + | Performing | Address | City/State/Zipcode | Phone Number | | Organization | | | | + +---------+ + + | EXTERNAL LAB | | | | + +---------+ + + Lipase (05/18/2014 8:05 AM PDT) + +-------+ + + + | Component | Value | Ref Range | Performed | Pathologist | | | | | At | Signature | + +-------+ + + + | Lipase | 834 | 73 - 393 U/L | EXTERNAL [...] +---------+ + + CBC w/ Auto Differential (05/18/2014 8:05 AM PDT) + +-------+ + + + | Component | Value | Ref Range | Performed | Pathologist | | | | | At | Signature | + +-------+ + + + | WBC | 14 | 4.6 - 10.5 | EXTERNAL | | | | | 1000/mm3 | LAB | | + +-------+ + + + | RBC | 4.07 | 4.36 - 5.83 | EXTERNAL | | | | | mil/mm3 | LAB | | + +-------+ + + + | HGB, | 14 | 13.1 - 17.4 | EXTERNAL | | | External | | g/dL | LAB | | + +-------+ + + + | HCT, | 40.3 | 39.0 - 51.9 % | EXTERNAL | | | External | | | LAB | | + +-------+ + + + | MCV | 99 | 82 - 96 fl | EXTERNAL | | | | | | LAB | | + +-------+ + + + | MCH | 34.4 | 27.7 - 32.3 pg | EXTERNAL | | | | | | LAB | | + +-------+ + + + | MCHC | 34.7 | 32.0 - 36.9 | EXTERNAL | | | | | g/dL | LAB | | + +-------+ + + + | RDW-CV | 13.2 | <=17.0 % | EXTERNAL | | | | | | LAB | | + +-------+ + + + | RDW-SD | 46.9 | 34.0 - 57.0 fL | EXTERNAL | | | | | | LAB | | + +-------+ + + + | Platelet | 231 | 150 - 450 | EXTERNAL | | | Count | | 1000/mm3 | LAB | | | Plasma | | | | | + +-------+ + + + | MPV | 9.7 | 9.4 - 12.4 FL | EXTERNAL | | | | | | LAB | | + +-------+ + + + | % Segmented | 80.3 | 42.0 - 76.0 % | EXTERNAL | | | | | | LAB | | | Neutrophils | | | | | + +-------+ + + + | % | 12.9 | 29.0 - 49.0 % | EXTERNAL | | | Lymphocytes | | | LAB | | + +-------+ + + + | % Monocytes | 5.5 | 3.0 - 13.0 % | EXTERNAL | | | | | | LAB | | + +-------+ + + + | % | 0.9 | 0.0 - 7.0 % | EXTERNAL | | | Eosinophils | | | LAB | | + +-------+ + + + | % Basophils | 0.4 | 0.0 - 2.0 % | EXTERNAL | | | | | | LAB | | + +-------+ + + + | Absolute | 11.27 | 2.80 - 7.70 | EXTERNAL | | | Neutrophils | | 1000/mm3 | LAB | | + +-------+ + + + | Absolute | 1.81 | 1.20 - 3.30 | EXTERNAL | | | Lymphocytes | | 1000/mm3 | LAB | | + +-------+ + + + | Absolute | 0.77 | 0.00 - 0.80 | EXTERNAL | | | Monocytes | | 1000/mm3 | LAB | | + +-------+ + + + | Absolute | 0.13 | 0.00 - 0.70 | EXTERNAL | | | Eosinophils | | 1000/mm3 | LAB | | + +-------+ + + + | Absolute | 0.05 | 0.00 - 0.20 | EXTERNAL | [...] + +---------+ + + Comprehensive Metabolic Panel (05/18/2014 8:05 AM PDT) + +-------+ + + + | Component | Value | Ref Range | Performed | Pathologist | | | | | At | Signature | + +-------+ + + + | Sodium | 135 | 132 - 143 | EXTERNAL | | | | | mmol/L | LAB | | + +-------+ + + + | Potassium | 3.8 | 3.3 - 4.9 | EXTERNAL | | | | | mmol/L | LAB | | + +-------+ + + + | Cl | 106 | 95 - 108 mmol/L | EXTERNAL | | | | | | LAB | | + +-------+ + + + | CO2 | 24 | 23 - 34 mmol/L | EXTERNAL | | | | | | LAB | | + +-------+ + + + | Anion Gap | 5 | 7 - 16 | EXTERNAL | | | | | | LAB | | + +-------+ + + + | Calcium | 8.4 | 8.3 - 10.0 | EXTERNAL | | | | | mg/dL | LAB | | + +-------+ + + + | Glucose | 100 | 70 - 110 mg/dL | EXTERNAL [...] +-------+ + + + | BUN/Creatin | 10 | 7.0 - 24.0 | EXTERNAL | | | ine Ratio | | RATIO | LAB | | + +-------+ + + + | GFR | 60 | >=60 | EXTERNAL | | | ESTIMATE | | mL/min/1.73m2 | LAB | | + +-------+ + + + | Bilirubin, | 0.3 | <=1.2 mg/dL | EXTERNAL | | | Total | | | LAB | | + +-------+ + + + | Protein, | 6.5 | 6.6 - 8.5 g/dL | EXTERNAL | | | Total | | | LAB | | + +-------+ + + + | Albumin | 3.7 | 3.0 - 4.5 g/dL | EXTERNAL | | | | | | LAB | | + +-------+ + + + | Alkaline | 95 | 33 - 151 U/L | EXTERNAL | | | Phosphatase | | | LAB | | + +-------+ + + + | ALT, | 37 | 30 - 65 U/L | EXTERNAL | | | External | | | LAB | | + +-------+ + + + | AST, | 19 | <=38 U/L | EXTERNAL | | [...]
--- OUTSIDE RECORDS SUMMARY | ~2019-09-03 | XMS | Clinical Summary ---
Demographics + + + | Address | [address] | | | [place] [address] | + + + | Home Phone | | + + + | Preferred Language | Unknown | + + + | Marital Status | Single | + + + | Worship Affiliation | CHR | + + + [...] Team Providers + +------+ + | Care Smoke Jumper Name | Role | Phone | + +------+ + | Meaghan Zhong MD | PCP | | + +------+ + Source Comments PAT is fully live on both [facility] Ambulatory and [facility] InPatient.[facility] Allergies + + + + [...] | | | + +--------+ +--------+-------+---------+--------+ | HYDROELECTRIC PRODUCTION MANAGER MEDICAID | HYDROELECTRIC PRODUCTION MANAGER | xxxxxxxx | | | | Medica [...] | | christy/Livan | | 1971 | [phone] | [place] [address] | | | david | | | 0 (Home) | | + +--------+ +--------+ + +
--- OUTSIDE RECORDS SUMMARY | ~2019-09-03 | XMS | Encounter Summary ---
Demographics + + + | Address | [address] | | | [place] [address] | + + + | Home Phone | | + + + | Preferred Language | Unknown | + + + | Marital Status | Single | + + + | Restorationist Affiliation | CHR | + + + | Race | White | + + + | Ethnic Group | Not or | + + + Author + + + | Author | [facility] | + + + | Organization | [facility] | + + + | Address | Unknown | + + + | Phone | Unavailable | + + + Support + + +---------+ + | Name | Relationship | Address | Phone | + + +---------+ + | Thalia Armani | ECON | Unknown | | + + +---------+ + Care Team Providers + +------+ + | Care Director Of Event Management Name | Role | Phone | + +------+ + | Meaghan Zhong MD | PCP | | + +------+ + Encounter Details +--------+---------+ + + + | Date | Type | Department | Care Team | Description | +--------+---------+ + + + | 09/15/ | Office | Preoperative | 1, [facility] [employer] [address] | Other Complication | | 2006 | Visit | Medicine Clinic at | [facility] [address] | of Colostomy or | | | | [facility] 4th Floor [address] | [place] [address] | Enterostomy; Crohns | | | | [address] | | Disease (HCC); Other | | | | Mailcode: CH4S | | Specified | | | | [facility] | | Pre-Operative | | | | and Healing, | | Examination; | | | | Building [address] Floor | | Hemorrhagic Disorder | | | | [place], [place] | | due to Intrinsic | | | | [address] | | Circulating | | | | [phone] | | Anticoagulants | +--------+---------+ + + + Social History [...] + + + | Blood Pressure | 129/84 | 09/15/2007 3:27 PM | | | | | PST | | + + + + + | Pulse | 50 | 09/15/2007 3:27 PM | | | | | PST | | + + + + + | Temperature | 36.1 C (97 F) | 09/15/2007 3:27 PM | | | | | PST | | + + + + + | Respiratory Rate | 14 | 09/15/2007 3:27 PM | | | | | PST | | + + + + + | Oxygen Saturation | 98% | 09/15/2007 3:27 PM | | | | | PST | | + + + + + | Inhaled Oxygen | - | - | | | Concentration | | | | + + + + + | Weight | 68.1 kg (150 lb 2.1 | 09/15/2007 3:27 PM | | | | oz) | PST | | + + + + + | Height | 157.5 cm (5' 2") | 09/15/2007 3:27 PM | | | | | PST | | + + + + + | Body Mass Index | 27.46 | 09/15/2007 3:27 PM | | | | | PST | | + + + + + documented in this encounter Progress Ashleigh Barajas - 09/15/2007 3:53 PM PSTSee Scanned H&P. documented in this encoun ter Plan of Treatment Not on filedocumented as of this encounter Procedures + +--------+ + + + | Procedure Name | Priori | Date/Time | Associated Diagnosis | Comments | | | ty | | | | + +--------+ + + + | INR | Routin | 09/15/2007 | Hemorrhagic | Results for this | | | e | 3:30 PM | Disorder due to | procedure are in the | | | | PST | Intrinsic | results section. | | | | | Circulating | | | | | | Anticoagulants | | + +--------+ + + + | COMPLETE METABOLIC | Routin | 09/15/2007 | Other Specified | Results for this | | SET | e | 3:30 PM | Pre-Operative | procedure are in the | | (NA,K,CL,CO2,BUN,CRE | | PST | Examination | results section. | | AT,GLUC,CA,AST,ALT,B | | | | | | MARLIN TOTAL,ALK | | | | | | PHOS,ALB,PROT TOTAL) | | | | | + +--------+ + + + | CBC ONLY | Routin | 09/15/2007 | Other Specified | Results for this | | | e | 3:30 PM | Pre-Operative | procedure are in the | | | | PST | Examination | results section. | + +--------+ + + + | APTT (ACT. PART. | Routin | 09/15/2007 | Hemorrhagic | Results for this | | THROMBO TIME) | e | 3:30 PM | Disorder due to | procedure are in the | | | | PST | Intrinsic | results section. | | | | | Circulating | | | | | | Anticoagulants | | + +--------+ + + + | TYPE AND CROSSMATCH | Routin | 09/15/2007 | Other Specified | Results for this | | | e | 3:30 PM | Pre-Operative | procedure are in the | | | | PST | Examination | results section. | + +--------+ + + + | PRODUCT - RED CELLS | Routin | 09/15/2007 | Other Specified | Results for this | | LEUKOREDUCED | e | 3:25 PM | Pre-Operative | procedure are in the | | | | PST | Examination | results section. | + +--------+ + + + documented in this encounter Results PROTHROMBIN TIME (09/15/2007 3:30 PM PST) + + + + + + | Component | Value | Ref Range | Performed | Pathologist | | | | | At | Signature | + + + + + + | INR | 1.10Comment: | 0.90 - 1.20 INR | [facility] | | | | PT INR Therapeutic | | DEPARTMENT | | | | ranges for full | | OF | | | | anticoagulation: | | PATHOLOGY | | | | INR for | | | | | | Venous Thromboembolism | | | | | | | | | | | | (2.0-3.0)INR | | | | | | INR for most | | | | | | patients with mech. | | | | | | valves (2.5-3.5)INR | | | | + + + + + + + + | Specimen | + + | Blood - Blood | + + + + + + + | Performing | Address | City/State/Zipcode | Phone Number | | Organization | | | | + + + + + | [facility] DEPARTMENT OF | [address] | [place] [address] | | | PATHOLOGY | [address] | | | + + + + + | [place] DEPARTMENT OF | [address] | [place] [address] | | | PATHOLOGY | [address] | | | + + + + + APTT (ACT. PART. THROMBO TIME) (09/15/2007 3:30 PM PST) + + + + + + | Component | Value | Ref Range | Performed | Pathologist | | | | | At | Signature | + + + + + + | APTT | 38.2 (H)Comment: | 26.0 - 36.0 | [facility] | | | | APTT Therapeutic | seconds | DEPARTMENT | | | | Range | | OF | | | | | | PATHOLOGY | | | | (75-120)sec | | | | | | Heparin levels | | | | | | of 0.35-0.7 U/mL | | | | + + + + + + + + | Specimen | + + | Blood | + + + + + + + | Performing | Address | City/State/Zipcode | Phone Number | | Organization | | | | + + + + + | [facility] DEPARTMENT OF | [address] | [place] [address] | | | PATHOLOGY | [address] | | | + + + + + | [facility] DEPARTMENT OF | [address] | [place] [address] | | | PATHOLOGY | [address] | | | + + + + + TYPE AND CROSSMATCH (09/15/2007 3:30 PM PST) + + + + + + | Component | Value | Ref Range | Performed | Pathologist | | | | | At | Signature | + + + + + + | ABO GROUP | A | | [facility] | | | | | | DEPARTMENT | | | | | | OF | | | | | | PATHOLOGY | | + + + + + + | RH TYPE | Positive | | [facility] | | | | | | DEPARTMENT | | | | | | OF | | | | | | PATHOLOGY | | + + + + + + | Antibody | Negative | | [facility] | | | Screen | | | DEPARTMENT | | | | | | OF | | | | | | PATHOLOGY | | + + + + + + + + | Specimen | + + | Blood | + + + + + + + | Performing | Address | City/State/Zipcode | Phone Number | | Organization | | | | + + + + + | [facility] | [facility] [address] | [place] [address] | | | PATHOLOGY | [address] | | | + + + + + | [facility] DEPARTMENT OF | [facility] | [place] [address] | | | PATHOLOGY | [address] | | | + + + + + CBC ONLY WITH PLATELET (09/15/2007 3:30 PM PST) + + + + + + | Component | Value | Ref Range | Performed | Pathologist | | | | | At | Signature | + + + + + + | WHITE CELL | 12.0 (H) | 4.4 - 11.0 K/cu | [facility] | | | COUNT | | mm | DEPARTMENT | | | | | | OF | | | | | | PATHOLOGY | | + + + + + + | RED CELL | 4.50 | 4.50 - 5.90 | [facility] | | | COUNT | | M/cu mm | DEPARTMENT | | | | | | OF | | | | | | PATHOLOGY | | + + + + + + | HEMOGLOBIN | 15.3 | 13.5 - 17.5 | [facility] | | | | | g/dL | DEPARTMENT | | | | | | OF | | | | | | PATHOLOGY | | + + + + + + | HEMATOCRIT | 43.8 | 41.0 - 53.0 % | [facility] | | | | | | DEPARTMENT | | | | | | OF | | | | | | PATHOLOGY | | + + + + + + | MCV | 97.3 (H) | 80.0 - 96.0 fL | [facility] | | | | | | DEPARTMENT | | | | | | OF | | | | | | PATHOLOGY | | + + + + + + | MCHC | 34.9 | 33.4 - 35.5 | [facility] | | | | | g/dL | DEPARTMENT | | | | | | OF | | | | | | PATHOLOGY | | + + + + + + | RDW | 13.4 | 11.5 - 15.0 % | [facility] | | | | | | DEPARTMENT | | | | | | OF | | | | | | PATHOLOGY | | + + + + + + | PLATELET | 307 | 150 - 400 K/cu | [facility] | | | COUNT | | mm | DEPARTMENT | | | | | | OF | | | | | | PATHOLOGY | | + + + + + + + + | Specimen | + + | Blood | + + + + + + + | Performing | Address | City/State/Zipcode | Phone Number | | Organization | | | | + + + + + | [facility] DEPARTMENT OF | [address] | [place] [address] | | | PATHOLOGY | [address] | | | + + + + + | [facility] DEPARTMENT OF | [address] | [place] [address] | | | PATHOLOGY | [address] | | | + + + + + COMP METABOLIC SET (09/15/2007 3:30 PM PST) + +--------+ + + + | Component | Value | Ref Range | Performed | Pathologist | | | | | At | Signature | + +--------+ + + + | GLUCOSE, | 85 | 60 - 99 mg/dL | [facility] | | | PLASMA | | | DEPARTMENT | | | (LAB) | | | OF | | | | | | PATHOLOGY | | + +--------+ + + + | BUN, PLASMA | 13 | 6 - 20 mg/dL | [facility] | | | (LAB) | | | DEPARTMENT | | | | | | OF | | | | | | PATHOLOGY | | + +--------+ + + + | CREATININE | 1.2 | 0.7 - 1.3 mg/dL | [facility] | | | PLASMA | | | DEPARTMENT | | | (LAB) | | | OF | | | | | | PATHOLOGY | | + +--------+ + + + | TOTAL | 6.8 | 6.1 - 7.9 g/dL | [facility] | | | PROTEIN, | | | DEPARTMENT | | | PLASMA | | | OF | | | (LAB) | | | PATHOLOGY | | + +--------+ + + + | ALBUMIN, | 4.2 | 3.5 - 4.7 g/dL | [facility] | | | PLASMA | | | DEPARTMENT | | | (LAB) | | | OF | | | | | | PATHOLOGY | | + +--------+ + + + | CALCIUM, | 9.0 | 8.5 - 10.5 | [facility] | | | PLASMA | | mg/dL | DEPARTMENT | | | (LAB) | | | OF | | | | | | PATHOLOGY | | + +--------+ + + + | BILIRUBIN | 0.8 | 0.3 - 1.2 mg/dL | [facility] | | | TOTAL | | | DEPARTMENT | | | | | | OF | | | | | | PATHOLOGY | | + +--------+ + + + | ALK PHOS | 64 | 53 - 128 U/L | [facility] | | | | | | DEPARTMENT | | | | | | OF | | | | | | PATHOLOGY | | + +--------+ + + + | AST(SGOT) | 27 | 15 - 41 U/L | [facility] | | | | | | DEPARTMENT | | | | | | OF | | | | | | PATHOLOGY | | + +--------+ + + + | SODIUM, | 138 | 136 - 145 | [facility] | | | PLASMA | | mmol/L | DEPARTMENT | | | (LAB) | | | OF | | | | | | PATHOLOGY | | + +--------+ + + + | POTASSIUM, | 3.6 | 3.5 - 5.1 | [facility] | | | PLASMA | | mmol/L | DEPARTMENT | | | (LAB) | | | OF | | | | | | PATHOLOGY | | + +--------+ + + + | CHLORIDE, | 105 | 98 - 107 mmol/L | [facility] | | | PLASMA | | | DEPARTMENT | | | (LAB) | | | OF | | | | | | PATHOLOGY | | + +--------+ + + + | TOTAL CO2, | 22 (L) | 23 - 29 mmol/L | [facility] | | | PLASMA | | | DEPARTMENT | | | (LAB) | | | OF | | | | | | PATHOLOGY | | + +--------+ + + + | ALT (SGPT) | 23 | 13 - 48 U/L | [facility] | | | | | | DEPARTMENT | | | | | | OF | | | | | | PATHOLOGY | | + +--------+ + + + + + | Specimen | + + | Blood | + + + + + | Narrative | Performed At | + + + | [id number] Estimated GFR > 60 mL/min/1.73 sq m if non- | [facility] | | [id number] Estimated GFR > 60 mL/min/1.73 sq m if GFR | DEPARTMENT OF | | is estimated using the MDRD equation recommended by the National | PATHOLOGY | | Kidney Disease Education Program. Estimated GFR Interpretive | | | Information: <60 mL/min/1.73 sq m Chronic Kidney Disease <15 | | | mL/mon/1.73 sq m Kidney Failure Estimated GFR greater than | | | 60mL/min/1.73 is of limited clinical Value. The MDRD equation is | | | not valid in the following situations: - Patients under 18 years of | | | age - Severe malnutrition or obesity - Vegetarian diet - Rapidly | | | changing kidney function | | + + + + + + + + | Performing | Address | City/State/Zipcode | Phone Number | | Organization | | | | + + + + + | [facility] | [address] | [place] [address] | | | PATHOLOGY | [address] | | | + + + + + | [facility] | [address] | [place] [address] | | | PATHOLOGY | [address] | | | + + + + + RED CELLS, LEUKOREDUCED (09/15/2007 3:25 PM PST) + + + + + + | Component | Value | Ref Range | Performed | Pathologist | | | | | At | Signature | + + + + + + | PRODUCT | -1 RED BLOOD | | [facility] | | | DESCRIPTION | CELLS,ADENINE-SALINE | | DEPARTMENT | | | | ADDED,LEUKOCYTES REDUCED | | OF | | | | | | PATHOLOGY | | + + + + + + | PRODUCT | [id number] | | [facility] | | | UNIT # | | | DEPARTMENT | | | | | | OF | | | | | | PATHOLOGY | | + + + + + + | UNIT ABO | A | | [facility] | | | | | | DEPARTMENT | | | | | | OF | | | | | | PATHOLOGY | | + + + + + + | UNIT RH | POS | | [facility] | | | | | | DEPARTMENT | | | | | | OF | | | | | | PATHOLOGY | | + + + + + + | CROSSMATCH | Compatible | | [facility] | | | ANALYSIS | | | DEPARTMENT | | | | | | OF | | | | | | PATHOLOGY | | + + + + + + | STATUS OF | Released | | [facility] | | | UNIT | | | DEPARTMENT | | | | | | OF | | | | | | PATHOLOGY | | + + + + + + + + | Specimen | + + | | + + + + + + + | Performing | Address | City/State/Zipcode | Phone Number | | Organization | | | | + + + + + | [facility] DEPARTMENT OF | [address] | [place] [address] | | | PATHOLOGY | [address] | | | + + + + + | [facility] | [address] | [place] [address] | | | PATHOLOGY | [address] | | | + + + + + documented in this encounter Visit Diagnoses + + | Diagnosis | + + | Other complication of colostomy or enterostomy | + + | Crohns disease Regional enteritis of unspecified site | + + | Other specified pre-operative examination | + + | Hemorrhagic disorder due to intrinsic circulating anticoagulants | + + documented in this encounter
--- OUTSIDE RECORDS SUMMARY | ~2019-09-03 | XMS | Encounter Summary ---
Demographics + + + | Address | [address] | | | [place] [address] | + + + | Home Phone [...] Author + + + | Author | [facility] | + + + | Organization | [facility] | + + + | Address | Unknown | + + + | Phone | Unavailable | + + + Support + + +---------+ + | Name | Relationship | Address | Phone | + + +---------+ + | Thalia Armani | ECON | Unknown | | + + +---------+ + Care Team Providers + +------+ + | Care Director Market Intelligence Name | Role | Phone | + +------+ + | Meaghan Zhong MD | PCP | | + +------+ + Reason for Visit +--------+ + | Reason | Comments | +--------+ + | Other | Pt Dismissed from [facility] | +--------+ + Encounter Details +--------+ + + + + | Date | Type | Department | Care Team | Description | +--------+ + + + + | 06/19/ | Telephone | [facility] | [address], | Other (Pt Dismissed | | 2017 | | [facility] [id number] | MD | from [facility]) | | | | [address] | | | | | | Mailcode: Center | | | | | | for Health and | | | | | | [facility], [address] | | | | | | [place], [place] | | | | | | [address] | | | | | | [phone] | | | +--------+ + + + [...]
--- OUTSIDE RECORDS SUMMARY | ~2019-09-03 | XMS | Encounter Summary ---
Demographics + + + | Address | [address] | | | [place] [address] | + + + | Home Phone | | + + + | Preferred Language | Unknown | + + + | Marital Status | Single | + + + | Restoration Affiliation | 1013 | + + + | Race | Unknown | + + + | Ethnic Group | Unknown | + + + Author + + + | Author | [facility] | | | and [place] | + + + | Organization | [facility] | | | and [...] Providers + +------+ + | Care Manager Of Corporate Communications Name | Role | Phone | + +------+ + | No, Physician | PCP | Unavailable | + +------+ + Encounter Details +--------+ + + + + | Date | Type | Department | Care Team | Description | +--------+ + + + + | 11/03/ | Hospital | [facility] | [facility] | | | 2014 | Encounter | [facility]OSP[facility] EMERGENCY | MD [address] | | | | | CENTER [address] | [place], | | | | | [address] [place], [place] | [place] [address] | | | | | [address] | [phone] | | | | | [phone] | | | +--------+ + + + [...] + | CBC W/AUTO | STAT | 11/03/2014 | | Results for this | | DIFFERENTIAL | | 4:25 PM | | procedure are in the | | | | PST | | results section. | + +--------+ + + + | MAGNESIUM | STAT | 11/03/2014 | | Results for this | | | | 4:25 PM | | procedure are in the | | | | PST | | results section. | + +--------+ + + + | LIPASE | STAT | 11/03/2014 | | Results for this | | | | 4:25 PM | | procedure are in the | | | | PST | | results section. | + +--------+ + + + | COMPREHENSIVE | STAT | 11/03/2014 | | Results for this | | METABOLIC PANEL | | 4:25 PM | | procedure are in the | | | | PST | | results section. | + +--------+ + + + | URINALYSIS WITH | STAT | 11/03/2014 | | Results for this | | MICROSCOPIC WITH | | 4:24 PM | | procedure are in the | | CULTURE IF INDICATED | | PST | | results section. | + +--------+ + + + | CT ABDOMEN PELVIS W | Routin | 11/03/2014 | | Results for this | | CONTRAST | e | 3:57 PM | | procedure are in the | | | | PST | | results section. | + +--------+ + + + documented in this encounter Results Magnesium (11/03/2014 4:25 PM PST) + +-------+ + + + | Component | Value | Ref Range | Performed | Pathologist | | | | | At | Signature | + +-------+ + + + | Magnesium | 1.7 | 1.8 - 2.4 mg/dL | EXTERNAL | | [...] | | + +---------+ + + Lipase (11/03/2014 4:25 PM PST) + +-------+ + + + | Component | Value | Ref Range | Performed | Pathologist | | | | | At | Signature | + +-------+ + + + | Lipase | 189 | 73 - 393 U/L | EXTERNAL [...] + +---------+ + + Comprehensive Metabolic Panel (11/03/2014 4:25 PM PST) + +-------+ + + + | Component | Value | Ref Range | Performed | Pathologist | | | | | At | Signature | + +-------+ + + + | Sodium | 139 | 132 - 143 | EXTERNAL | | | | | mmol/L | LAB | | + +-------+ + + + | Potassium | 3.8 | 3.3 - 4.9 | EXTERNAL | | | | | mmol/L | LAB | | + +-------+ + + + | Cl | 104 | 95 - 108 mmol/L | EXTERNAL | | | | | | LAB | | + +-------+ + + + | CO2 | 24 | 23 - 34 mmol/L | EXTERNAL | | | | | | LAB | | + +-------+ + + + | Anion Gap | 11 | 7 - 16 | EXTERNAL | | | | | | LAB | | + +-------+ + + + | Calcium | 9.5 | 8.3 - 10.0 | EXTERNAL | | | | | mg/dL | LAB | | + +-------+ + + + | Glucose | 112 | 70 - 110 mg/dL | EXTERNAL | | | | | | LAB | | + +-------+ + + + | BUN, Bld | 16 | 5 - 26 mg/dL | EXTERNAL | | | | | | LAB | | + +-------+ + + + | Creatinine | 1.3 | 0.7 - 1.4 mg/dL | EXTERNAL | | | | | | LAB | | + +-------+ + + + | BUN/Creatin | 12.3 | 7.0 - 24.0 | EXTERNAL | | | ine Ratio | | RATIO | LAB | | + +-------+ + + + | GFR | 60 | >=60 | EXTERNAL | | | ESTIMATE | | mL/min/1.73m2 | LAB | | + +-------+ + + + | Bilirubin, | 0.8 | <=1.2 mg/dL | EXTERNAL | | | Total | | | LAB | | + +-------+ + + + | Protein, | 7.6 | 6.6 - 8.5 g/dL | EXTERNAL | | | Total | | | LAB | | + +-------+ + + + | Albumin | 4.4 | 3.0 - 4.5 g/dL | EXTERNAL | | | | | | LAB | | + +-------+ + + + | Alkaline | 88 | 46 - 116 U/L | EXTERNAL | | | Phosphatase | | | LAB | | + +-------+ + + + | ALT, | 47 | 16 - 63 U/L | EXTERNAL | | | External | | | LAB | | + +-------+ + + + | AST, | 25 | <=38 U/L | EXTERNAL | | [...] +---------+ + + CBC w/ Auto Differential (11/03/2014 4:25 PM PST) + +-------+ + + + | Component | Value | Ref Range | Performed | Pathologist | | | | | At | Signature | + +-------+ + + + | WBC | 10.5 | 4.6 - 10.5 | EXTERNAL | | | | | 1000/mm3 | LAB | | + +-------+ + + + | RBC | 4.5 | 4.36 - 5.83 | EXTERNAL | | | | | mil/mm3 | LAB | | + +-------+ + + + | HGB, | 15.3 | 13.1 - 17.4 | EXTERNAL | | | External | | g/dL | LAB | | + +-------+ + + + | HCT, | 43.4 | 39.0 - 51.9 % | EXTERNAL | | | External | | | LAB | | + +-------+ + + + | MCV | 96 | 82 - 96 fl | EXTERNAL | | | | | | LAB | | + +-------+ + + + | MCH | 34 | 27.7 - 32.3 pg | EXTERNAL | | | | | | LAB | | + +-------+ + + + | MCHC | 35.3 | 32.0 - 36.9 | EXTERNAL | | | | | g/dL | LAB | | + +-------+ + + + | RDW-CV | 12.4 | <=17.0 % | EXTERNAL | | | | | | LAB | | + +-------+ + + + | RDW-SD | 42.7 | 34.0 - 57.0 fL | EXTERNAL | | | | | | LAB | | + +-------+ + + + | Platelet | 247 | 150 - 450 | EXTERNAL | | | Count | | 1000/mm3 | LAB | | | Plasma | | | | | + +-------+ + + + | MPV | 9.9 | 9.4 - 12.4 FL | EXTERNAL | | | | | | LAB | | + +-------+ + + + | % Segmented | 87.7 | 42.0 - 76.0 % | EXTERNAL | | | | | | LAB | | | Neutrophils | | | | | + +-------+ + + + | % | 9.2 | 20.0 - 40.0 % | EXTERNAL | | | Lymphocytes | | | LAB | | + +-------+ + + + | % Monocytes | 2.9 | 3.0 - 13.0 % | EXTERNAL | | | | | | LAB | | + +-------+ + + + | % | 0 | 0.0 - 7.0 % | EXTERNAL | | | Eosinophils | | | LAB | | + +-------+ + + + | % Basophils | 0.2 | 0.0 - 2.0 % | EXTERNAL | | | | | | LAB | | + +-------+ + + + | Absolute | 9.2 | 2.80 - 7.70 | EXTERNAL | | | Neutrophils | | 1000/mm3 | LAB | | + +-------+ + + + | Absolute | 0.96 | 1.20 - 3.30 | EXTERNAL | | | Lymphocytes | | 1000/mm3 | LAB | | + +-------+ + + + | Absolute | 0.3 | 0.00 - 0.80 | EXTERNAL | | | Monocytes | | 1000/mm3 | LAB | | + +-------+ + + + | Absolute | 0 | 0.00 - 0.70 | EXTERNAL | | | Eosinophils | | 1000/mm3 | LAB | | + +-------+ + + + | Absolute | 0.02 | 0.00 - 0.20 | EXTERNAL | [...] Urinalysis with Microscopic with Culture if Indicated (11/03/2014 4:24 PM PST) + + + + + + | Component | Value | Ref Range | Performed | Pathologist | | | | | At | Signature | + + + + + + | Source | Clean Catch / VOID | | EXTERNAL | | | | | | LAB | | + + + + + + | Clarity | HAZY | CLEAR | EXTERNAL | | | | | | LAB | | + + + + + + | Color | YELLOW | YELLOW | EXTERNAL | | | | | | LAB | | + + + + + + | Specific | 1.015 | 1.005 - 1.030 | EXTERNAL | | | [place], | | | LAB | | | Urine | | | | | + + + + + + | pH, Urine | 8 | 5.0 - 7.0 pH | EXTERNAL | | | | | | LAB | | + + + + + + | Leukocyte | 100 | NEGATIVE /uL | EXTERNAL | | | Esterase, | | | LAB | | | Urine | | | | | + + + + + + | Nitrite, | NEGATIVE | NEGATIVE | EXTERNAL | | | Urine | | | LAB | | + + + + + + | Protein, | 30 | NEGATIVE mg/dL | EXTERNAL | | [...] + + + + | Ketones, | 150 | NEGATIVE mg/dL | EXTERNAL | | [...] + + + | WBC UA | 6-10 | </= 5 /HPF | EXTERNAL | | | | | | LAB | | + + + + + + | RBC COUNT | 0-2 | </= 5 PER HPF | EXTERNAL | | | | | | LAB | | + + + + + + | Bacteria, | NONE SEEN | NONE SEEN /HPF | EXTERNAL | | | UA | | | LAB | | + + + + + + | Culture | YES | | EXTERNAL | | | Indicated | | | LAB | | + + + + + + | SQUAMOUS | MODERATE | /LPF | EXTERNAL | | | EPITHELIAL | | | LAB | | | UA | | | | | + + + + + + | MUCUS UA | MANY | NONE SEEN /HPF | EXTERNAL | | | | [...] | | | + +---------+ + + CT Abdomen Pelvis w Contrast (11/03/2014 3:57 PM PST) + + | Specimen | + + | | + + + + + | Narrative | Performed At | + + + | ORIGINAL HISTORY: Abdomen pain and history of | | | Crohn's. ABDOMEN AND PELVIS CT SCAN: Routine imaging was | | | performed after administration of oral and intravenous contrast. | | | COMPARISON: 05/18/2014. The bone structures demonstrate no acute | | | abnormalities. The lung bases are normal. The heart and distal | | | esophagus are normal. The stomach is well distended and demonstrates | | | no abnormalities. The small bowel and mesentery are normal. The | | | terminal ileum also demonstrates no wall thickening. There are | | | some fluid-filled small bowel loops present. There is some | | | questionable mild wall thickening of the rectum and sigmoid colon; | | | however, this is decompressed. The appendix appears normal. The | | | liver demonstrates no significant focal lesion. The gallbladder is | | | absent. The portal vein and common bile duct are normal. The | | | pancreatic duct again appears mildly prominent; however, this is | | | unchanged from the prior study. The spleen is normal. No adrenal | | | mass is identified. The kidneys demonstrate no significant focal | | | lesion. No hydronephrosis. The urinary bladder is normal. The | | | prostate and seminal vesicles are normal. No free air or free fluid | | | is seen. The vascular structures are unremarkable. No free air | | | or free fluid is noted. No lymphadenopathy is seen. There is a | | | small periumbilical fat-containing hernia. CONCLUSION: No acute | | | abnormality is identified. JOB#: [id number] | | | Read By: RAGHU SUMMERS MD Released By: RAGHU SUMMERS MD | | | Date: 11/04/2014 09:56 | | + + + + + | Procedure Note | + + | Guru Meneses In - 08/05/2017 6:30 PM PST ORIGINAL HISTORY:Abdomen pain | | and history of Crohn's. ABDOMEN AND PELVIS CT SCAN: Routine imaging was performed after | | administration of oral and intravenous contrast. COMPARISON:05/18/2014. The bone | | structures demonstrate no acute abnormalities. The lung bases are normal. The heart | | and distal esophagus are normal. The stomach is well distended and demonstrates no | | abnormalities. The small bowel and mesentery are normal. The terminal ileum also | | demonstrates no wall thickening. There are some fluid-filled small bowel loops present. | | There is some questionable mild wall thickening of the rectum and sigmoid colon; | | however, this is decompressed. The appendix appears normal. The liver demonstrates no | | significant focal lesion. The gallbladder is absent. The portal vein and common bile | | duct are normal. The pancreatic duct again appears mildly prominent; however, this is | | unchanged from the prior study. The spleen is normal. No adrenal mass is identified. | | The kidneys demonstrate no significant focal lesion. No hydronephrosis. The urinary | | bladder is normal. The prostate and seminal vesicles are normal. No free air or free | | fluid is seen. The vascular structures are unremarkable. No free air or free fluid is | | noted. No lymphadenopathy is seen. There is a small periumbilical fat-containing | | hernia. CONCLUSION:No acute abnormality is identified. JOB#: [id number] | | Read By: RAGHU SUMMERS MD Released By: LESVIA BARROSate: 11/04/2014 09:56 | | | |adrenal mass is identified. The kidneys demonstrate no significant focal lesion. No hydro nephrosis. The urinary bladder is normal. The prostate and seminal vesicles are normal. N o free air or free fluid is seen. The vascular structures are | |unremarkable. No free air or free fluid is noted. No lymphadenopathy is seen. There is a small periumbilical fat-containing hernia. | | | |CONCLUSION: | |No acute abnormality is identified. | | | | | |JOB#: [id number] | | | |Read By: RAGHU SUMMERS MD | | | |Released By: RAGHU SUMMERS MD | |Date: 11/04/2014 09:56 | | | | | + + documented in this encounter Visit Diagnoses Not on filedocumented in this encounter"
--- OUTSIDE RECORDS SUMMARY | ~2019-09-03 | XMS | Encounter Summary ---
Demographics + + + | Address | [address] | | | [place] [address] | + + + | Home Phone | | + + + | Preferred Language | Unknown | + + + | Marital Status | Single | + + + | Scientology Affiliation | 1013 | + + + | Race | Unknown | + + + | Ethnic Group | Unknown | + + + Author + + + | Author | [facility] | | | and [place] | + + + | Organization | [facility] | | | and [place] [...] Team Providers + +------+ + | Care Packaging Clerk Name | Role | Phone | + +------+ + | No, Physician | PCP | Unavailable | + +------+ + Encounter Details +--------+ + + + + | Date | Type | Department | Care Team | Description | +--------+ + + + + | 12/06/ | Abstract | [facility] [place] | Reg Zurita, | GERD | | 2012 | | GASTROENTEROLOGY | [address] | (gastroesophageal | | | | [address] [place] | [address], | reflux disease) | | | | [address], [place] | [place] [address] | (Primary Dx) | | | | [address] | [phone] | | | | | [phone] | | | +--------+ + + + [...] Comments | + + +---------+ + | Not Asked | | | | + + +---------+ [...] + | Diagnosis | + + | GERD (gastroesophageal reflux disease) - Primary Esophageal reflux | + + documented in this encounter"
--- OUTSIDE RECORDS SUMMARY | ~2019-09-03 | XMS | Encounter Summary ---
Demographics + + + | Address | [address] | | | [place] [address] | + + + | Home Phone [...] Author | [facility] | | | and [place] | + + + | Organization | [facility] | | | and [place] [...] Team Providers + +------+ + | Care Web Development Instructor Name | Role | Phone | + +------+ + PCP | Unavailable | + +------+ + Encounter Details +--------+ + + + + | Date | Type | Department | Care Team | Description | +--------+ + + + + | 01/22/ | Hospital | [facility] | Meaghan Zhong | | | 2009 | Encounter | HOSPITAL XRAY [address] | [address] | | | | | [place] | [address] [facility], | | | | | [facility], [place] | [place] [address] | | | | | [address] | [phone] | | | | | [phone] | | | +--------+ + + + [...]
--- OUTSIDE RECORDS SUMMARY | ~2019-09-03 | XMS | Encounter Summary ---
Demographics + + + | Address | [address] | | | [place] [address] | + + + | Home Phone | | + + + | Preferred Language | Unknown | + + + | Marital Status | Single | + + + | Temple Affiliation | 1013 | + + + | Race | Unknown | + + + | Ethnic Group | Unknown | + + + Author + + + | Author | [facility] | | | and [place] | + + + | Organization | [facility] | | | and [...] Team Providers + +------+ + | Care Collarette Separator Name | Role | Phone | + +------+ + | No, Physician | PCP | Unavailable | + +------+ + Encounter Details +--------+ + + + + | Date | Type | Department | Care Team | Description | +--------+ + + + + | 10/24/ | Hospital | [facility] | Emily Green, | | | 2014 | Encounter | [facility] | DO [address] | | | | | [facility] [address] | [place] [address] | | | | | [address] [place], | [phone] | | | | | [place] [address] | | | | | | [phone] | | | +--------+ + + + [...]
--- OUTSIDE RECORDS SUMMARY | ~2019-09-03 | XMS | Encounter Summary ---
Demographics + + + | Address | [address] | | | [place] [address] | + + + | Home Phone | | + + + | Preferred Language | Unknown | + + + | Marital Status | Single | + + + | Gnosticism Affiliation | 1013 | + + + | Race | Unknown | + + + | Ethnic Group | Unknown | + + + Author + + + | Author | [facility] | | | and [place] | + + + | Organization | [facility] | | | and [place] [...] Team Providers + +------+ + | Care Zoology Teacher Name | Role | Phone | + +------+ + | No, Physician | PCP | Unavailable | + +------+ + Encounter Details +--------+ + + + + | Date | Type | Department | Care Team | Description | +--------+ + + + + | 08/18/ | [facility] | [place] [facility] | Clement Ventura | | | 2013 | Encounter | HOSPITAL EMERGENCY | MD [address] | | | | | CENTER [address] | [facility] | | | | | [address] [place], [place] | [place] [address] | | | | | [address] | [phone] | | | | | [phone] | | | +--------+ + + + [...] + + + + | Color | PALE | YELLOW | EXTERNAL | | | | | | LAB | | + + + + + + | Specific | 1.005 | 1.005 - 1.030 | EXTERNAL | | | [place], | | | LAB | | | [...] + + + + | SQUAMOUS | NONE SEEN | /LPF | EXTERNAL [...]
--- OUTSIDE RECORDS SUMMARY | ~2019-09-03 | XMS | Encounter Summary ---
Demographics + + + | Address | [address] | | | [place] [address] | + + + | Home Phone | | + + + | Preferred Language | Unknown | + + + | Marital Status | Single | + + + | Baptism Affiliation | 1013 | + + + | Race | Unknown | + + + | Ethnic Group | Unknown | + + + Author + + + | Author | [facility] | | | and [place] | + + + | Organization | [facility] | | | and [...] Team Providers + +------+ + | Care Air Quality Manager Name | Role | Phone | + +------+ + | Emily Green DO | PCP | | + +------+ + Reason for Visit + + + | Reason | Comments | + + + | Medication Refill | | + + + Encounter Details +--------+--------+ + + + | Date | Type | Department | Care Team | Description | +--------+--------+ + + + | 04/06/ | Refill | [facility] | Carmelo Patterson MD | Medication Refill | | 2017 | | GASTROENTEROLOGY | [address] [facility] | | | | | [address] [facility] | [place], [place] | | | | | [address] | [address] | | | | | [address] | [phone] | | | | | [phone] | | | +--------+--------+ + + + [...]
--- OUTSIDE RECORDS SUMMARY | ~2019-09-03 | XMS | Encounter Summary ---
Demographics + + + | Address | [address] | | | [place] [address] | + + + | Home Phone | | + + + | Preferred Language | Unknown | + + + | Marital Status | Single | + + + | Tenriism Affiliation | 1013 | + + + | Race | Unknown | + + + | Ethnic Group | Unknown | + + + Author + + + | Author | [facility] | | | and [place] | + + + | Organization | [facility] | | | and [place] [...] Team Providers + +------+ + | Care Hydrodynamicist Name | Role | Phone | + [...] [address] [place] | [place] [address] | | | | | [place], [place] | [phone] | | | | | [address] | | | | | | [phone] | | | +--------+ + + + [...]
--- OUTSIDE RECORDS SUMMARY | ~2019-09-03 | XMS | Encounter Summary ---
Demographics + + + | Address | [address] | | | [place] [address] | + + + | Home Phone [...] + + + | Author | [facility] [place] | | | and [place] | + + + | Organization | [facility] | [...] Team Providers + +------+ + | Care Software Architect Name | Role | Phone | + +------+ + | Emily Green DO | PCP | | + +------+ + Reason for Visit + + + | Reason | Comments | + + + | Procedure | r/s egd/colon | + + + Encounter Details +--------+ + + + + | Date | Type | Department | Care Team | Description | +--------+ + + + + | 02/05/ | Telephone | [facility] | Carmelo Patterson MD | Procedure (r/s | | 2016 | | GASTROENTEROLOGY | [address] | egd/colon) | | | | [address] [facility] | [place], [place] | | | | | [address] [place] | [address] | | | | | [address] | [phone] | | | | | [phone] | | | +--------+ + + + [...]
--- OUTSIDE RECORDS SUMMARY | ~2019-09-03 | XMS | Encounter Summary ---
Demographics + + + | Address | [address] | | | [place] [address] | + + + | Home Phone | | + + + | Preferred Language | Unknown | + + + | Marital Status | Single | + + + | Methodist Affiliation | 1013 | + + + | Race | Unknown | + + + | Ethnic Group | Unknown | + + + Author + + + | Author | [facility] | | | and [place] | + + + | Organization | [facility] | | [...] Team Providers + +------+ + | Care Merchant Mariner Name | Role | Phone | + +------+ + | No, Physician | PCP | Unavailable | + +------+ + Encounter Details +--------+ + + + + | Date | Type | Department | Care Team | Description | +--------+ + + + + | 11/07/ | Hospital | [facility] | Andrew Perez | | | 2015 | Encounter | [facility] | [address] | | | | [address] | [address] | | | | | [address] [place], [place] | [place] [address] | | | | | [address] | [phone] | | | | | [phone] | | | +--------+ + + + [...] | | 15 | 5 | | (NUBRENDATELY WITH | dose. DRINK / PREP | | | | | | [...] + + | COMPREHENSIVE | Routin | 11/07/2014 | | Results for this | | METABOLIC PANEL | e | 10:07 AM | | procedure are in the | | | | PST | | results section. | + +--------+ + + + | CBC W/AUTO | STAT | 11/07/2014 | | Results for this | | DIFFERENTIAL | | 9:09 AM | | procedure are in the | | | | PST | | results section. | + +--------+ + + + | SEDIMENTATION RATE | STAT | 11/07/2014 | | Results for this | | | | 9:09 AM | | procedure are in the | | | | PST | | results section. | + +--------+ + + + | LIPASE | STAT | 11/07/2014 | | Results for this | | | | 9:09 AM | | procedure are in the | | | | PST | | results section. | + +--------+ + + + documented in this encounter Results Comprehensive Metabolic Panel (11/07/2014 10:07 AM PST) + +-------+ + + + | Component | Value | Ref Range | Performed | Pathologist | | | | | At | Signature | + +-------+ + + + | Sodium | 140 | 132 - 143 | EXTERNAL | | | | | mmol/L | LAB | | + +-------+ + + + | Potassium | 3.7 | 3.3 - 4.9 | EXTERNAL | | | | | mmol/L | LAB | | + +-------+ + + + | Cl | 108 | 95 - 108 mmol/L | EXTERNAL | | | | | | LAB | | + +-------+ + + + | CO2 | 25 | 23 - 34 mmol/L | EXTERNAL | | | | | | LAB | | + +-------+ + + + | Anion Gap | 7 | 7 - 16 | EXTERNAL | | | | | | LAB | | + +-------+ + + + | Calcium | 8.7 | 8.3 - 10.0 | EXTERNAL | | | | | mg/dL | LAB | | + +-------+ + + + | Glucose | 96 | 70 - 110 mg/dL | EXTERNAL | | | | | | LAB | | + +-------+ + + + | BUN, Bld | 13 | 5 - 26 mg/dL | EXTERNAL | | | | | | LAB | | + +-------+ + + + | Creatinine | 1.1 | 0.7 - 1.4 mg/dL | EXTERNAL | | | | | | LAB | | + +-------+ + + + | BUN/Creatin | 11.8 | 7.0 - 24.0 | EXTERNAL | [...] +-------+ + + + | Protein, | 6.6 | 6.6 - 8.5 g/dL | EXTERNAL | | | Total | | | LAB | | + +-------+ + + + | Albumin | 3.8 | 3.0 - 4.5 g/dL | EXTERNAL | | | | | | LAB | | + +-------+ + + + | Alkaline | 67 | 46 - 116 U/L | EXTERNAL | | | Phosphatase | | | LAB | | + +-------+ + + + | ALT, | 27 | 16 - 63 U/L | EXTERNAL | | | External | | | LAB | | + +-------+ + + + | AST, | 11 | <=38 U/L | EXTERNAL | | [...] | | | + +---------+ + + Sedimentation Rate (11/07/2014 9:09 AM PST) + +-------+ + + + | Component | Value | Ref Range | Performed | Pathologist | | | | | At | Signature | + +-------+ + + + | ESR | 9 | <=15 mm/h | EXTERNAL | | | | | | LAB | | + +-------+ + + + + + | Specimen | + + | | + + + +---------+ + + | Performing | Address | City/State/Zipcode | Phone Number | | Organization | | | | + +---------+ + + | EXTERNAL LAB | | | | + +---------+ + + Lipase (11/07/2014 9:09 AM PST) + +-------+ + + + | Component | Value | Ref Range | Performed | Pathologist | | | | | At | Signature | + +-------+ + + + | Lipase | 335 | 73 - 393 U/L | EXTERNAL [...] +---------+ + + CBC w/ Auto Differential (11/07/2014 9:09 AM PST) + +-------+ + + + | Component | Value | Ref Range | Performed | Pathologist | | | | | At | Signature | + +-------+ + + + | WBC | 13.5 | 4.6 - 10.5 | EXTERNAL | | | | | 1000/mm3 | LAB | | + +-------+ + + + | RBC | 4.41 | 4.36 - 5.83 | EXTERNAL | | | | | mil/mm3 | LAB | | + +-------+ + + + | HGB, | 15 | 13.1 - 17.4 | EXTERNAL | | | External | | g/dL | LAB | | + +-------+ + + + | HCT, | 42.8 | 39.0 - 51.9 % | EXTERNAL | | | External | | | LAB | | + +-------+ + + + | MCV | 97 | 82 - 96 fl | EXTERNAL [...] +-------+ + + + | RDW-CV | 12.5 | <=17.0 % | EXTERNAL | | | | | | LAB | | + +-------+ + + + | RDW-SD | 43 | 34.0 - 57.0 fL | EXTERNAL | | | | | | LAB | | + +-------+ + + + | Platelet | 244 | 150 - 450 | EXTERNAL | | | Count | | 1000/mm3 | LAB | | | Plasma | | | | | + +-------+ + + + | MPV | 10.2 | 9.4 - 12.4 FL | EXTERNAL | | | | | | LAB | | + +-------+ + + + | % Segmented | 78.9 | 42.0 - 76.0 % | EXTERNAL | | | | | | LAB | | | Neutrophils | | | | | + +-------+ + + + | % | 14.5 | 20.0 - 40.0 % | EXTERNAL | | | Lymphocytes | | | LAB | | + +-------+ + + + | % Monocytes | 5.6 | 3.0 - 13.0 % | EXTERNAL | | | | | | LAB | | + +-------+ + + + | % | 0.6 | 0.0 - 7.0 % | EXTERNAL | | | Eosinophils | | | LAB | | + +-------+ + + + | % Basophils | 0.4 | 0.0 - 2.0 % | EXTERNAL | | | | | | LAB | | + +-------+ + + + | Absolute | 10.61 | 2.80 - 7.70 | EXTERNAL | | | Neutrophils | | 1000/mm3 | LAB | | + +-------+ + + + | Absolute | 1.95 | 1.20 - 3.30 | EXTERNAL | | | Lymphocytes | | 1000/mm3 | LAB | | + +-------+ + + + | Absolute | 0.76 | 0.00 - 0.80 | EXTERNAL | | | Monocytes | | 1000/mm3 | LAB | | + +-------+ + + + | Absolute | 0.08 | 0.00 - 0.70 | EXTERNAL | | | Eosinophils | | 1000/mm3 | LAB | | + +-------+ + + + | Absolute | 0.06 | 0.00 - 0.20 | EXTERNAL | [...]
--- OUTSIDE RECORDS SUMMARY | ~2019-09-03 | XMS | Encounter Summary ---
Demographics + + + | Address | [address] | | | [place] [address] | + + + | Home Phone | | + + + | Preferred Language | Unknown | + + + | Marital Status | Single | + + + | Yazidism Affiliation | 1013 | + + + | Race | Unknown | + + + | Ethnic Group | Unknown | + + + Author + + + | Author | [facility] | | | and [place] | + + + | Organization | [facility] | | | and [...] Team Providers + +------+ + | Care Biology Lecturer Name | Role | Phone | + [...] | | | [address] [place] | [address] | | | | | [address] | [phone] | | | | | [phone] | | | +--------+ + + + [...]
--- OUTSIDE RECORDS SUMMARY | ~2019-09-03 | XMS | Encounter Summary ---
Demographics + + + | Address | [address] | | | [place] [address] | + + + | Home Phone | | + + + | Preferred Language | Unknown | + + + | Marital Status | Single | + + + | Druze Affiliation | 1013 | + + + | Race | Unknown | + + + | Ethnic Group | Unknown | + + + Author + + + | Author | [facility] | | | and [place] | + + + | Organization | [facility] | | | and [...] Team Providers + +------+ + | Care Dermatology Physician Assistant Name | Role | Phone | + +------+ + | No, Physician | PCP | Unavailable | + +------+ + Reason for Visit +--------+ + | Reason | Comments | +--------+ + | Other | Reschedule procedure | +--------+ + Encounter Details +--------+ + + + + | Date | Type | Department | Care Team | Description | +--------+ + + + + | 11/07/ | Telephone | [facility] | Carmelo Patterson MD | Other (Reschedule | | 2015 | | GASTROENTEROLOGY | [address] | procedure) | | | | [address] [facility] | [place], [place] | | | | | [address] [place], [place] | [address] | | | | | [address] | [phone] | | | | | [phone] | | | +--------+ + + + [...]
--- OUTSIDE RECORDS SUMMARY | ~2019-09-03 | XMS | Encounter Summary ---
Demographics + + + | Address | [address] | | | [place] [address] | + + + | Home Phone | | + + + | Preferred Language | Unknown | + + + | Marital Status | Single | + + + | Mormon Affiliation | 1013 | + + + | Race | Unknown | + + + | Ethnic Group | Unknown | + + + Author + + + | Author | [facility] | | | and [place] | + + + | Organization | [facility] [...] Team Providers + +------+ + | Care Table Machine Operator Name | Role | Phone | + +------+ + | No, Physician | PCP | Unavailable | + +------+ + Encounter Details +--------+ + + + + | Date | Type | Department | Care Team | Description | +--------+ + + + + | 07/03/ | Hospital | [facility] | Emily Green, | | | 2014 | Encounter | [facility] | DO [address] | | | | | [facility] [address] | [place] [address] | | | | | [address] [place], | [phone] | | | | | [place] [address] | | | | | | [phone] | | | +--------+ + + + [...]
--- OUTSIDE RECORDS SUMMARY | ~2019-09-03 | XMS | Encounter Summary ---
Demographics + + + | Address | [address] | | | [place] [address] | + + + | Home Phone | | + + + | Preferred Language | Unknown | + + + | Marital Status | Single | + + + | Restorationist Affiliation | 1013 | + + + | Race | Unknown | + + + | Ethnic Group | Unknown | + + + Author + + + | Author | [facility] | | | and [place] | + + + | Organization | [facility] | | | and [place] [...] Team Providers + +------+ + | Care Computer Artist Name | Role | Phone | [...] 2012 | | GASTROENTEROLOGY | [address] | | | | | [address] [place] | [address] [place], | | | | | [address] [place], [place] | [place] [address] | | | | | [address] | [phone] | | | | | [phone] | | | +--------+ + + + [...]
--- OUTSIDE RECORDS SUMMARY | ~2019-09-03 | XMS | Encounter Summary ---
Demographics + + + | Address | [address] | | | [place] [address] | + + + | Home Phone | | + + + | Preferred Language | Unknown | + + + | Marital Status | Single | + + + | Congregation Affiliation | CHR | + + + | Race | White | + + + | Ethnic Group | Not or | + + + Author + + + | Author | [facility] | + + + | Organization | [facility] | + + + | Address | Unknown | + + + | Phone | Unavailable | + + + Support + + +---------+ + | Name | Relationship | Address | Phone | + + +---------+ + | Thalia Armani | ECON | Unknown | | + + +---------+ + Care Team Providers + +------+ + | Care Freelance Displayer Name | Role | Phone | + [...] 2016 | | Center at [facility] [address] | | | | | | [place] | | | | | | Mailcode: Center | | | | | | for Health and | | | | | | Healing, [address] | | | | | | [facility] [place] | | | | | | [address] | | | | | | [phone] | | | +--------+ + + + [...]
--- OUTSIDE RECORDS SUMMARY | ~2019-09-03 | XMS | Encounter Summary ---
Demographics + + + | Address | [address] | | | [place] [address] | + + + | Home Phone | | + + + | Preferred Language | Unknown | + + + | Marital Status | Single | + + + | Anglican Affiliation | 1013 | + + + | Race | Unknown | + + + | Ethnic Group | Unknown | + + + Author + + + | Author | [facility] | | | and [place] | + + + | Organization | [facility] | | | and [...] Team Providers + +------+ + | Care Agricultural Education Professor Name | Role | Phone | + +------+ + | No, Physician | PCP | Unavailable | + +------+ + Encounter Details +--------+ + + + + | Date | Type | Department | Care Team | Description | +--------+ + + + + | 06/23/ | Anesthesia | [facility] | Roque Watson | 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 | + + +------+ | Meds | +------+ + + + No medications | on file. | + + + + + | No agents on file. | + + + + | No blood administrations on file. | + + + + | No LDAs on file. | + + documented in this encounter Social History + +-------+ +--------+------+ | Tobacco [...]
--- OUTSIDE RECORDS SUMMARY | ~2019-09-03 | XMS | Encounter Summary ---
Demographics + + + | Address | [address] | | | [place] [address] | + + + | Home Phone | | + + + | Preferred Language | Unknown | + + + | Marital Status | Single | + + + | Taoism Affiliation | CHR | + + + | Race | White | + + + | Ethnic Group | Not or | + + + Author + + + | Author | [facility] | + + + | Organization | [facility] | + + + | Address | Unknown | + + + | Phone | Unavailable | + + + Support + + +---------+ + | Name | Relationship | Address | Phone | + + +---------+ + | Thalia Armani | ECON | Unknown | | + + +---------+ + Care Team Providers + +------+ + | Care Solutions Manager Name | Role | Phone | [...] | +--------+ + + + + | 12/10/ | Telephone | [facility] | [address], | Pain | | 2016 | | Center at [facility] [address] | | | | | | [place] | | | | | | Mailcode: Center | | | | | | for Health and | | | | | | Healing, [address] | | | | | | [facility] [place] | | | | | | [address] | | | | | | [phone] | | | +--------+ + + + [...]
--- OUTSIDE RECORDS SUMMARY | ~2019-09-03 | XMS | Encounter Summary ---
Demographics + + + | Address | [address] | | | [place] [address] | + + + | Home Phone [...] + + | Author | [facility] | | | and [place] | + + + | Organization | [facility] | | | and [...] Team Providers + +------+ + | Care Sales Representative Girls' Apparel Name | Role | Phone | + +------+ + | Emily Green DO | PCP | | + +------+ + Encounter Details +--------+ + + + + | Date | Type | Department | Care Team | Description | +--------+ + + + + | 01/16/ | Abstract | [facility] | Carmelo Patterson MD | | | 2016 | | GASTROENTEROLOGY | [address] | | | | | [address] [facility] | [place], [place] | | | | | [address] | [address] | | | | | [address] | [phone] | | | | | [phone] | | | +--------+ + + + [...] +--------+ + + + | EXTERNAL LAB: MAGUE | Routin | 12/11/2015 | | Results for this | | | e | | | procedure are in the | | | | | | results section. | + +--------+ + + + | EXTERNAL LAB: | Routin | 12/11/2015 | | Results for this | | GLUCOSE | e | | | procedure are in the | | | | | | results section. | + +--------+ + + + | EXTERNAL LAB: ALT | Routin | 12/11/2015 | | Results for this | | | e | | | procedure are in the | | | | | | results section. | + +--------+ + + + | EXTERNAL LAB: AST | Routin | 12/11/2015 | | Results for this | | | e | | | procedure are in the | | | | | | results section. | + +--------+ + + + | EXTERNAL LAB: | Routin | 12/11/2015 | | Results for this | | ALKALINE PHOSPHATASE | e | | | procedure are in the | | | | | | results section. | + +--------+ + + + | EXTERNAL LAB: | Routin | 12/11/2015 | | Results for this | | BILIRUBIN, TOTAL | e | | | procedure are in the | | | | | | results section. | + +--------+ + + + | EXTERNAL LAB: | Routin | 12/11/2015 | | Results for this | | ALBUMIN | e | | | procedure are in the | | | | | | results section. | + +--------+ + + + | EXTERNAL LAB: | Routin | 12/11/2015 | | Results for this | | PROTEIN, TOTAL | e | | | procedure are in the | | | | | | results section. | + +--------+ + + + | EXTERNAL LAB: | Routin | 12/11/2015 | | Results for this | | CALCIUM | e | | | procedure are in the | | | | | | results section. | + +--------+ + + + | EXTERNAL LAB: CARBON | Routin | 12/11/2015 | | Results for this | | DIOXIDE | e | | | procedure are in the | | | | | | results section. | + +--------+ + + + | EXTERNAL LAB: | Routin | 12/11/2015 | | Results for this | | CHLORIDE | e | | | procedure are in the | | | | | | results section. | + +--------+ + + + | EXTERNAL LAB: | Routin | 12/11/2015 | | Results for this | | POTASSIUM | e | | | procedure are in the | | | | | | results section. | + +--------+ + + + | EXTERNAL LAB: SODIUM | Routin | 12/11/2015 | | Results for this | | | e | | | procedure are in the | | | | | | results section. | + +--------+ + + + | EXTERNAL LAB: CBC | Routin | 12/11/2015 | | Results for this | | | e | | | procedure are in the | | | | | | results section. | + +--------+ + + + | EXTERNAL LAB: EGFR | Routin | 12/11/2015 | | Results for this | | | e | | | procedure are in the | | | | | | results section. | + +--------+ + + + | EXTERNAL LAB: | Routin | 12/11/2015 | | Results for this | | CREATININE | e | | | procedure are in the | | | | | | results section. | + +--------+ + + + | CBC WITH | Routin | 12/11/2015 | | Results for this | | DIFFERENTIAL | e | | | procedure are in the | | | | | | results section. | + +--------+ + + + | COMPREHENSIVE | Routin | 12/11/2015 | | Results for this | | METABOLIC PANEL | e | | | procedure are in the | | | | | | results section. | + +--------+ + + + documented in this encounter Results Comprehensive Metabolic Panel (12/11/2015) + +-------+ + + + | Component | Value | Ref Range | Performed | Pathologist | | | | | At | Signature | + +-------+ + + + | Anion Gap | 11 | 7 - 21 mmol/L | [facility] - | | | | | | [facility]ORY | | + +-------+ + + + | Bun/Creatin | 13.9 | 6.0 - 28.6 | [facility] | | | ine | | | [facility] | | | | | | [facility] | | | | | [facility] - | | | | | | LABORATORY | | + +-------+ + + + | Globulin | 2.3 | 1.8 - 3.5 | [facility] | | | | | [facility] | | | | | | [facility] | | | | | [facility] - | | | | | | LABORATORY | | + +-------+ + + + | Albumin/Bonny | 2.0 | 1.1 - 2.4 | [facility] | | | bulin Ratio | | | [facility] | | | | | | [facility] | | | | | | [facility] - | | | | | | LABORATORY | | + +-------+ + + + + + | Specimen | + + | Blood specimen | | (specimen) | + + + + + + + | Performing | Address | City/State/Zipcode | Phone Number | | Organization | | | | + + + + + | [facility] | [address] | [place] | [phone] | | [facility] | | [address] | | | - LABORATORY | | | | + + + + + CBC with Differential (12/11/2015) + +-------+ + + + | Component | Value | Ref Range | Performed | Pathologist | | | | | At | Signature | + +-------+ + + + | [facility] | 32.0 | 26.0 - 33.0 pg | | | + +-------+ + + + | [facility] | 33.0 | 31.0 - 37.0 % | | | + +-------+ + + + + + | Specimen | + + | Blood specimen | | (specimen) | + + External Lab: MAGUE (12/11/2015) + +-------+ + + + | Component | Value | Ref Range | Performed | Pathologist | | | | | At | Signature | + +-------+ + + + | BUN, | 14 | 6 - 23 | EXTERNAL | | | External | | | LAB | | + +-------+ + + + + + | Resulting Agency Comment | + + | [facility] | + + + +---------+ + + | Performing | Address | City/State/Zipcode | Phone Number | | Organization | | | | + +---------+ + + | EXTERNAL LAB | | | | + +---------+ + + External Lab: Glucose (12/11/2015) + +---------+ + + + | Component | Value | Ref Range | Performed | Pathologist | | | | | At | Signature | + +---------+ + + + | Glucose, | 119 (A) | 70 - 110 | EXTERNAL | | | External | | | LAB | | + +---------+ + + + + + | Resulting Agency Comment | + + | [facility] | + + + +---------+ + + | Performing | Address | City/State/Zipcode | Phone Number | | Organization | | | | + +---------+ + + | EXTERNAL LAB | | | | + +---------+ + + External Lab: ALT (12/11/2015) + +-------+ + + + | Component | Value | Ref Range | Performed | Pathologist | | | | | At | Signature | + +-------+ + + + | ALT, | 52 | 7 - 52 | EXTERNAL | | | External | | | LAB | | + +-------+ + + + + + | Resulting Agency Comment | + + | [facility] | + + + +---------+ + + | Performing | Address | City/State/Zipcode | Phone Number | | Organization | | | | + +---------+ + + | EXTERNAL LAB | | | | + +---------+ + + External Lab: AST (12/11/2015) + +-------+ + + + | Component | Value | Ref Range | Performed | Pathologist | | | | | At | Signature | + +-------+ + + + | AST, | 33 | 13 - 39 | EXTERNAL | | | External | | | LAB | | + +-------+ + + + + + | Resulting Agency Comment | + + | [facility] | + + + +---------+ + + | Performing | Address | City/State/Zipcode | Phone Number | | Organization | | | | + +---------+ + + | EXTERNAL LAB | | | | + +---------+ + + External Lab: Alkaline Phosphatase (12/11/2015) + +-------+ + + + | Component | Value | Ref Range | Performed | Pathologist | | | | | At | Signature | + +-------+ + + + | ALP, | 98 | 30 - 128 | EXTERNAL | | | External | | | LAB | | + +-------+ + + + + + | Resulting Agency Comment | + + | [facility] | + + + +---------+ + + | Performing | Address | City/State/Zipcode | Phone Number | | Organization | | | | + +---------+ + + | EXTERNAL LAB | | | | + +---------+ + + External Lab: Bilirubin, Total (12/11/2015) + +-------+ + + + | Component | Value | Ref Range | Performed | Pathologist | | | | | At | Signature | + +-------+ + + + | Bilirubin, | 0.7 | 0 - 1.2 | EXTERNAL | | | Total, | | | LAB | | | External | | | | | + +-------+ + + + + + | Resulting Agency Comment | + + | [facility] | + + + +---------+ + + | Performing | Address | City/State/Zipcode | Phone Number | | Organization | | | | + +---------+ + + | EXTERNAL LAB | | | | + +---------+ + + External Lab: Albumin (12/11/2015) + +-------+ + + + | Component | Value | Ref Range | Performed | Pathologist | | | | | At | Signature | + +-------+ + + + | Albumin, | 4.7 | 3.5 - 5 | EXTERNAL | | | External | | | LAB | | + +-------+ + + + + + | Resulting Agency Comment | + + | [facility] | + + + +---------+ + + | Performing | Address | City/State/Zipcode | Phone Number | | Organization | | | | + +---------+ + + | EXTERNAL LAB | | | | + +---------+ + + External Lab: Protein, Total (12/11/2015) + +-------+ + + + | Component | Value | Ref Range | Performed | Pathologist | | | | | At | Signature | + +-------+ + + + | Protein, | 7.0 | 6 - 8 | EXTERNAL | | | Total, | | | LAB | | | External | | | | | + +-------+ + + + + + | Resulting Agency Comment | + + | [facility] | + + + +---------+ + + | Performing | Address | City/State/Zipcode | Phone Number | | Organization | | | | + +---------+ + + | EXTERNAL LAB | | | | + +---------+ + + External Lab: Calcium (12/11/2015) + +-------+ + + + | Component | Value | Ref Range | Performed | Pathologist | | | | | At | Signature | + +-------+ + + + | Calcium, | 10.2 | 8.1 - 10.2 | EXTERNAL | | | External | | | LAB | | + +-------+ + + + + + | Resulting Agency Comment | + + | [facility] | + + + +---------+ + + | Performing | Address | City/State/Zipcode | Phone Number | | Organization | | | | + +---------+ + + | EXTERNAL LAB | | | | + +---------+ + + External Lab: Carbon Dioxide (12/11/2015) + +-------+ + + + | Component | Value | Ref Range | Performed | Pathologist | | | | | At | Signature | + +-------+ + + + | Carbon | 24 | 19 - 31 | EXTERNAL | | | Dioxide, | | | LAB | | | External | | | | | + +-------+ + + + + + | Resulting Agency Comment | + + | [facility] | + + + +---------+ + + | Performing | Address | City/State/Zipcode | Phone Number | | Organization | | | | + +---------+ + + | EXTERNAL LAB | | | | + +---------+ + + External Lab: Chloride (12/11/2015) + +-------+ + + + | Component | Value | Ref Range | Performed | Pathologist | | | | | At | Signature | + +-------+ + + + | Chloride, | 107 | 95 - 112 | EXTERNAL | | | External | | | LAB | | + +-------+ + + + + + | Resulting Agency Comment | + + | [facility] | + + + +---------+ + + | Performing | Address | City/State/Zipcode | Phone Number | | Organization | | | | + +---------+ + + | EXTERNAL LAB | | | | + +---------+ + + External Lab: Potassium (12/11/2015) + +-------+ + + + | Component | Value | Ref Range | Performed | Pathologist | | | | | At | Signature | + +-------+ + + + | Potassium, | 4.3 | 3.6 - 5.1 | EXTERNAL | | | External | | | LAB | | + +-------+ + + + + + | Resulting Agency Comment | + + | [facility] | + + + +---------+ + + | Performing | Address | City/State/Zipcode | Phone Number | | Organization | | | | + +---------+ + + | EXTERNAL LAB | | | | + +---------+ + + External Lab: Sodium (12/11/2015) + +-------+ + + + | Component | Value | Ref Range | Performed | Pathologist | | | | | At | Signature | + +-------+ + + + | Sodium, | 138 | 132 - 143 | EXTERNAL | | | External | | | LAB | | + +-------+ + + + + + | Resulting Agency Comment | + + | [facility] | + + + +---------+ + + | Performing | Address | City/State/Zipcode | Phone Number | | Organization | | | | + +---------+ + + | EXTERNAL LAB | | | | + +---------+ + + External Lab: CBC (12/11/2015) + + + + + + | Component | Value | Ref Range | Performed | Pathologist | | | | | At | Signature | + + + + + + | WBC, | 12.2 (A) | 4.5 - 11 | EXTERNAL | | | External | | | LAB | | + + + + + + | HGB, | 15.6 | 13.5 - 18 | EXTERNAL | | | External | | | LAB | | + + + + + + | HCT, | 47.7 | 41 - 50 | EXTERNAL | | | External | | | LAB | | + + + + + + | PLT, | 297 | 140 - 440 | EXTERNAL | | | External | | | LAB | | + + + + + + | Neutrophils | 85 (A) | 39 - 80 | EXTERNAL | | | , Absolute, | | | LAB | | | External | | | | | + + + + + + | Lymphocytes | 12 (A) | 24 - 44 | EXTERNAL | | | , Absolute, | | | LAB | | | External | | | | | + + + + + + | Monocytes, | 3 | 0 - 12 | EXTERNAL | | | Absolute, | | | LAB | | | External | | | | | + + + + + + | Eosinophils | 0 | 0 - 6 | EXTERNAL | | | , Absolute | | | LAB | | + + + + + + | Basophils, | 0 | 0 - 2 | EXTERNAL | | | Absolute | | | LAB | | + + + + + + | RBC, | 4.89 | 4.3 - 5.7 | EXTERNAL | | | External | | | LAB | | + + + + + + | MCV, | 97 | 81 - 99 | EXTERNAL | | | External | | | LAB | | + + + + + + | RDW, | 12.7 | 10.5 - 15 | EXTERNAL | | | External | | | LAB | | + + + + + + + + | Resulting Agency Comment | + + | [facility] | + + + +---------+ + + | Performing | Address | City/State/Zipcode | Phone Number | | Organization | | | | + +---------+ + + | EXTERNAL LAB | | | | + +---------+ + + External Lab: eGFR (12/11/2015) + +-------+ + + + | Component | Value | Ref Range | Performed | Pathologist | | | | | At | Signature | + +-------+ + + + | eGFR, | 80 | 60 | EXTERNAL | | | External | | | LAB | | + +-------+ + + + + + | Specimen | + + | Blood specimen | | (specimen) | + + + + | Resulting Agency Comment | + + | [facility] | + + + +---------+ + + | Performing | Address | City/State/Zipcode | Phone Number | | Organization | | | | + +---------+ + + | EXTERNAL LAB | | | | + +---------+ + + External Lab: Creatinine (12/11/2015) + +-------+ + + + | Component | Value | Ref Range | Performed | Pathologist | | | | | At | Signature | + +-------+ + + + | Creatinine, | 1.01 | 0.6 - 1.35 | EXTERNAL | | | External | | | LAB | | + +-------+ + + + + + | Specimen | + + | Blood specimen | | (specimen) | + + + + | Resulting Agency Comment | + + | [facility] | + + + +---------+ + + | Performing | Address | City/State/Zipcode | Phone Number | | Organization | | | | + +---------+ + + | EXTERNAL LAB | | | | + +---------+ + + documented in this encounter Visit Diagnoses Not on filedocumented in this encounter"
--- OUTSIDE RECORDS SUMMARY | ~2019-09-03 | XMS | Encounter Summary ---
Demographics + + + | Address | [address] | | | [place] [address] | + + + | Home Phone | | + + + | Preferred Language | Unknown | + + + | Marital Status | Single | + + + | Faith Affiliation | 1013 | + + + | Race | Unknown | + + + | Ethnic Group | Unknown | + + + Author + + + | Author | [facility] | | | and [place] | + + + | Organization | [facility] | | [...] Team Providers + +------+ + | Care Slice Plug Cutter Operator Helper Name | Role | Phone | [...] | Specialty | Gastroenterol | Diagnoses | Parminder, | Yves, | | | Services | ogy | Abdominal | Reg Varela, | MD Carmelo | | | Required | | pain | [address] | | | | | Crohn's | [address] | [place], | | | | | disease, | [address] [place] | [place] [address] | | | | | unspecified | [place], [place] | Phone: | | | | | complication | [address] | [phone] | | | | | Other | Phone: | Fax: | | | | | opiates and | [phone] | [phone] | | | | | related | Fax: | | | | | | narcotics | [phone] | | | | | | causing | | | | | | | adverse | | | | | | | effect in | | | | | | | therapeutic | | | | | | | use | | | | | | | Procedures | | | | | | | [place] | | | | | | | ESOPHAGOGAST | | | | | | | RODUODENOSCO | | | | | | | PY TRANSORAL | | | | | | | DIAGNOSTIC | | | | | | | [place] EDG | | | | | | | TRANSORAL | | | | | | | BIOPSY | | | | | | | SINGLE/MULTI | | | | | | | PLE [place] | | | | | | | COLONOSCOPY, | | | | | | | DIAGNOSTIC | | | | | | | [place] | | | | | | | COLONOSCOPY, | | | | | | | BIOPSY [place] | | | | | | | COLONOSCOPY, | | | | | | | REMV | | | | | | | RAMON IBARRA | | | +--------+ + + + + + Reason for Visit +--------+ + | Reason | Comments | +--------+ + | Other | crohns | +--------+ + Evaluate & Treat (Routine) +--------+--------+ + + + + | Status | Reason | Specialty | Diagnoses / | Referred By | Referred To | | | | | Procedures | Contact | Contact | +--------+--------+ + + + + | Closed | | Gastroenterol | Diagnoses | James, | [facility] | | | | ogy | Regional | Stefano | Gastroenterol | | | | | enteritis of | MD Deep | ogtheresa [address] | | | | | unspecified | [address] | | | | | site | St | [address] [place] | | | | | Crohns | [place], | [place] | | | | | Procedures | [place] [address] | [address] | | | | | evaluate and | Phone: | Phone: | | | | | treat | [phone] | [phone] | | | | | | Fax: | Fax: | | | | | | [phone] | [phone] | +--------+--------+ + + + + Encounter Details +--------+---------+ + + + | Date | Type | Department | Care Team | Description | +--------+---------+ + + + | 03/22/ | Office | [facility] | Reg Zurita, | Abdominal pain | | 2013 | Visit | GASTROENTEROLOGY | [address] | (Primary Dx); | | | | [address] | [address] [place], | Crohn's disease, | | | | [address] [place], [place] | [place] [address] | unspecified | | | | [address] | [phone] | complication (HCC) | | | | [phone] | | | +--------+---------+ + + + Social History + +-------+ [...] + + + | Blood Pressure | 100/60 | 03/22/2014 4:20 PM | | | | | PDT | | + + + + + | Pulse | 70 | 03/22/2014 4:20 PM | | | | | PDT | | + + + + + | Temperature | 36.8 C (98.3 F) | 03/22/2014 4:20 PM | | | | | PDT | | + + + + + | Respiratory Rate | 16 | 03/22/2014 4:20 PM | | | | | PDT | | + + + + + | Oxygen Saturation | - | - | | + + + + + | Inhaled Oxygen | - | - | | | Concentration | | | | + + + + + | Weight | 64 kg (141 lb) | 03/22/2014 4:20 PM | | | | | PDT | | + + + + + | Height | 157.5 cm (5' 2") | 03/22/2014 4:20 PM | | | | | PDT | | + + + + + | Body Mass Index | 25.79 | 03/22/2014 4:20 PM | | | | | PDT | | + + + + + documented in this encounter Progress Reg Crowe MD - 03/22/2014 5:01 PM PDTFormatting of this note might be different fr om the original. Subjective: Patient ID: Rachid Glez is a 43 y.o. male. HPI Comments: See dictation Other Associated symptoms include abdominal pain, fatigue and vomiting. Filed Vitals: 03/22/14 1620 BP: 100/60 Pulse: 70 Temp: 36.8 C (98.3 F) Resp: 16 PainSc: 6 No Known Allergies Past Medical History Diagnosis Date Crohn's disease (HCC) hospitalized 11/03/12-11/07/12 at [facility] for crohn's flare Asthma Hypothyroidism Hx [...] visits Assessment: See dictation Plan: See dictation Reg Garcia MD - 03/22/2014 12:00 AM [facility] [address] [place] [address] FAX: [phone] OFFICE VISIT HISTORY OF PRESENT ILLNESS: The patient referred from his doctors in [facility]. For e past 3 weeks the patient has been troubled with persistent recurrent bouts of abdominal p ain. Classically he will awaken in the morning and have a fairly normal bowel movement, but then go back to have repeated bowel movements, develop epigastric pain, vomiting, and diar delon, which gets severe and sends him to the emergency room. He has seen a minimal amount o f blood with some of his stool on these occasions. He carries a history of Crohn's disease, apparently in 2005 he had perirectal pain and had a posterior fistulotomy done. He develop ed complications and apparently had to have a colostomy. Colon exam about that time showed pancolitis with skip areas. He was treated with mesalamine. The colostomy was taken down in 2007, he says. It looks like he has continued to have intermittent problems. He was seen b y Dr. Wheeler in 2010. Colonoscopy in 2008 showed some granular mucosa in the rectum, po ssibly consistent with Crohn's disease. Otherwise, normal colon, terminal ileum was normal. Procedure colonoscopy in 2010 showed some hemorrhoids, otherwise was normal. The upper end oscopy showed hiatal hernia, esophagitis, gastritis and duodenitis. With the patient's rece nt evaluation he had a CAT scan within the last few weeks, which was unremarkable. No evide nce of blockage or abscesses. Interestingly, he was treated with some prednisone for bronch itis and his GI symptoms improved. His symptoms are such that he is becoming afraid to eat because it seems to make his symptoms worse. His weight has not changed to a large degree. Also, of interest, about a year ago he was hospitalized with pancreatitis. His recent lab s tudies have not suggested a recurrence of pancreatitis. He has no history of peptic ulcer d isease or liver disease, he is status post cholecystectomy. He states he has 7-8 bowel move ments per day presently. ASSESSMENT 1. RECURRENT BOUTS OF ABDOMINAL PAIN, WHICH ARE WORSENING. 2. HISTORY OF CROHN DISEASE. PLAN: The CT scan does not show evidence of bowel inflammation. However, the severity of hi s symptoms necessitates further evaluation. Upper endoscopy and colonoscopy with anesthesia support is recommended to try to sort out if he has active inflammatory bowel disease, rul e out other possible causes. In the meantime, since he did improve on the prednisone and he does have a history of Crohn's, I will treat him empirically with prednisone 30 mg daily. He will continue on his sulfasalazine. He will also continue on his omeprazole in case some of his symptoms may be acid peptic related. Colonoscopy is scheduled in about 3 weeks. Reg Zurita M.D. ADONAY / ANN MARIE JOB #: [id number] signed by Reg Zurita MD at 03/23/2014 7:40 AM PDTdocume rayed in this encounter Plan of Treatment + + +--------+ + + | Name | Type | Priori | Associated Diagnoses | Order Schedule | | | | ty | | | + + +--------+ + + | Ambulatory referral | Outpatient | Routin | Abdominal pain | Expected: | | to Gastroenterology | Referral | e | Crohn's Disease, | 04/14/2014, Expires: | | ([facility]) | | | Unspecified | 03/22/2015 | | | | | Complication | | + + +--------+ + + documented as of this encounter Visit Diagnoses + + | Diagnosis | + + | Abdominal pain - Primary Abdominal pain, unspecified site | + + | Crohn's disease, unspecified complication | + + documented in this encounter
--- OUTSIDE RECORDS SUMMARY | ~2019-09-03 | XMS | Encounter Summary ---
Demographics + + + | Address | [address] | | | [place] [address] | + + + | Home Phone [...] Organization | [facility] | | | and [place] [...] Team Providers + +------+ + | Care Human Resources Benefits Administrator Name | Role | Phone | + [...] 2012 | | GASTROENTEROLOGY | [address] | | | | | [address] | [address] [place], | | | | | [address] [place], [place] | [place] [address] | | | | | [address] | [phone] | | | | | [phone] | | | +--------+ + + + [...]
--- OUTSIDE RECORDS SUMMARY | ~2019-09-03 | XMS | Encounter Summary ---
Demographics + + + | Address | [address] | | | [place] [address] | + + + | Home Phone | | + + + | Preferred Language | Unknown | + + + | Marital Status | Single | + + + | Mosque Affiliation | 1013 | + + + | Race | Unknown | + + + | Ethnic Group | Unknown | + + + Author + + + | Author | [facility] | | | and [place] | + + + | Organization | [facility] | [...] Team Providers + +------+ + | Care Branch Operations Specialist Name | Role | Phone | + +------+ + | Emily Green DO | PCP | | + +------+ + Encounter Details +--------+ + + + + | Date | Type | Department | Care Team | Description | +--------+ + + + + | 04/10/ | Orders Only | [facility] | Carmelo Pattreson MD | Gastroesophageal | | 2016 | | GASTROENTEROLOGY | [address] | reflux disease, | | | | [address] [facility] | [place], [place] | esophagitis presence | | | | [address] [place], [place] | [address] | not specified | | | | [address] | [phone] | (Primary Dx) | | | | [phone] | | | +--------+ + + + [...] encounter Progress Notes Saritha Hickman RN - 04/10/2016 4:03 PM PDTDr. Leonardo asked that I order Prilosec 20mg qAM #90 with 3 refills at [facility]. documented in this encounter Plan of Treatment Not on filedocumented as of this encounter Visit Diagnoses + + | Diagnosis | + + | Gastroesophageal reflux disease, esophagitis presence not specified - Primary | + + documented in this encounter"
--- OUTSIDE RECORDS SUMMARY | ~2019-09-03 | XMS | Encounter Summary ---
Demographics + + + | Address | [address] | | | [place] [address] | + + + | Home Phone [...] Organization | [facility] | | | and [...] Team Providers + +------+ + | Care Art Librarian Name | Role | Phone | + +------+ + | No, Physician | PCP | Unavailable | + +------+ + Reason for Visit + + + | Reason | Comments | + + + | Appointment | cancel colonoscopy | + + + Encounter Details +--------+ + + + + | Date | Type | Department | Care Team | Description | +--------+ + + + + | 06/22/ | Telephone | [facility] | Carmelo Patterson MD | Appointment (cancel | | 2013 | | GASTROENTEROLOGY | [address] | colonoscopy) | | | | [address] | [place], [place] | | | | | [address] [place] | [address] | | | | | [address] | [phone] | | | | | [phone] | | | +--------+ + + + [...]
--- OUTSIDE RECORDS SUMMARY | ~2019-09-03 | XMS | Encounter Summary ---
Demographics + + + | Address | [address] | | | [place] [address] | + + + | Home Phone [...] Organization | [facility] [place] | | | and [place] [...] Team Providers + +------+ + | Care Post Closer Name | Role | Phone | + [...] | | | disease | | [address] | | | | | without | | [place], | | | | | complication | | [place] [address] | | | | | , | | Phone: | | | | | unspecified | | [phone] | | | | | gastrointest | | Fax: | | | | | inal tract | | [phone] | | | | | location | [...] | | | | | | | [place] | | | | | | | COLONOSCOPY | | | | | | | FLX DX | | | | | | | W/COLLJ SPEC | | | | | | | WHEN [facility] | | | | | | | [place] | | | | | | | [...] + + | 04/09/ | Surgery | [facility] | Carmelo Patterson MD | EGD / COLONOSCOPY | | 2016 | | MED CTR MP INTRA OP | [address] | | | | | [address] | [place] | | | | | [place] | [address] | | | | | [address] | [phone] | | | | | [phone] | | | +--------+---------+ + + + [...] the physician who did your procedure at [phone] if you have any questions or experience any of the following: ? Increasing abdominal pain, nausea, or vomiting. ? Chills and fever over 101F. ? New abdominal swelling or bloating. ? Signs of rectal bleeding (black or red stool). If you cannot get a hold of your physician, then call the [facility] [phone] . If necessary, report to the Emergency Department at [facility]. Quit smoking: If you smoke or [...] | [facility] | | 04/09/2016 9:17 AMMRN: [id number] #: [id number] of : | | | 1970Admit Type: AmbulatoryAge: 45Room: [facility] 02Gender: MaleNote | | | Status: FinalizedAttending MD: Carmelo Patterson, [facility]rocedure: | | | Upper GI endoscopyIndications: Nausea with | | | vomitingProviders: Carmelo Patterson MD, Nini | | | ADITI Stewart, Kaylen Hernandez RN, Iraida | | | Stepan, Timing Inspector, Nima Lynn MD | | | (Anesthesia [...] the | | | anesthesiologist and the clinical laboratory technician in the pre-procedure area in the [...] AMScope Out: 9:46:40 AM | | | [facility], [address], [place] | | | [address] | | | instructions were provided to [...] |Scope Out: 9:46:40 AM | | | [facility], [address], [place] | | | [address] | | + + -+ + +---------+ + + | Performing | Address | City/State/[facility] | Phone Number | | Organization | | | | + +---------+ + + | [facility] | | | | + +---------+ + + COLONOSCOPY (04/09/2016 9:15 AM PDT) + + | Specimen | + + | | + + + + -+ | Narrative | Performed At | + + -+ | | [facility] | | GastroenterologyPatient Name: Rahcid GlezRonald Date: | [facility] | | 04/09/2016 9:15 AMMRN: [id number] #: [id number] of : | | | 1970Admit Type: AmbulatoryAge: 45Room: [facility] 02Gender: MaleNote | | | Status: FinalizedAttending MD: Carmelo Patterson, MDProcedure: | | | ColonoscopyIndications: Follow-up of Crohn's disease of | | | the colonProviders: Carmelo Patterson MD, Nini | | | ADITI Stewart, Kaylen Hernandez RN, Iraida | | | Stepan, Timing Inspector, Nima Lynn MD | | | (Anesthesia [...] the | | | anesthesiologist and the clinical laboratory technician in the pre-procedure area in the [...] | | 9:53:11 AMScope Out: 10:24:21 AM [facility] | | | [place], [address] [place] [address] | | | - High fiber diet [...] |Scope Out: 10:24:21 AM | | | [facility], [address] [facility], [place], [place] | | | [address] | | + + -+ + +---------+ [...] | | | endoscopic correlation is recommended. ARW:[facility]:C2NR GROSS | | | DESCRIPTION: Received in nine parts. A. Received in formalin | | | labeled "Sikh Newton" and "duodenal bx" on the requisition are | | | eight pink-owens tissue fragments measuring from 0.1-0.7 cm, submitted, | | | all in (A1). B. Received in formalin labeled "Sikh Newton" | | | and "gastric bx" on the requisition are two pink-owens tissue fragments | | | measuring from 0.35-0.55 cm, submitted, all in (B1). C. Received | | | in formalin labeled "Sikh Newton" and "esophagus bx" on the | | | requisition are seven pink-owens tissue fragments measuring from | | | <0.1-0.4 cm, submitted, all in (C1). D. Received in formalin | | | labeled "Sikh Newton" and "right colon bx" on the requisition | | | are four pink-owens tissue fragments measuring from 0.2-0.5 cm, | | | submitted, all in (D1). | | | E. Received in formalin | | | labeled "Sikh Newton" and "transverse colon bx" on the | | | requisition are four pink-owens tissue fragments measuring from 0.4-0.6 | | | cm, submitted all into (E1). F. Received in formalin labeled | | | "Sikh Newton" and "descending colon bx" on the requisition are | | | five pink-owens tissue fragments measuring from 0.1-0.8 cm, submitted, | | | all in (F1). G. Received in formalin labeled "Sikh Newton" | | | and "sigmoid colon bx" on the requisition are six pink-owens tissue | | | fragments measuring from 0.2-0.5 cm submitted, all in (G1). H. | | | Received in formalin labeled "Sikh Newton" and "rectal bx" on | | | the requisition are seven pink-owens tissue fragments measuring from | | | 0.25-0.5 cm, submitted, all in (H1). I. Received in formalin | | | labeled "Sikh Newton" and "sigmoid polyp bx" on the requisition | | | are five red-brown fragments measuring from 0.1-0.4 cm, submitted, all | | | in (I1). ka:CLR:[facility] PERFORMING LABORATORY: Tissue processing | | | and slide preparation were performed by [employer], [address] | | [facility] [address], [place] [address] (Senior It Business Analyst: Agusto | | | Jayda Mccracken CLIA#: [id number]). Professional interpretation was | | | performed by [employer], [address] | | | [place] [address] (Senior It Business Analyst: Agusto Mccracken M.D.; CLIA#: | | | [id number]). Diagnostician: Ruiz Maldonado | | | Electronically [...]
--- OUTSIDE RECORDS SUMMARY | ~2019-09-03 | XMS | Encounter Summary ---
Demographics + + + | Address | [address] | | | [place] [address] | + + + | Home Phone [...] + + + | Author | [facility] | | | and [place] | + + + | Organization | [facility] | | | and [place] [...] Team Providers + +------+ + | Care Airbrush Artist Technical Name | Role | Phone | + [...] | | | CENTER [address] | [facility] | | | | | [address] [place], [place] | [place] [address] | | | | | [address] | [phone] | | | | | [phone] | | | +--------+ + + + [...]
--- OUTSIDE RECORDS SUMMARY | ~2019-09-03 | XMS | Encounter Summary ---
Demographics + + + | Address | [address] | | | [place] [address] | + + + | Home Phone | | + + + | Preferred Language | Unknown | + + + | Marital Status | Single | + + + | Adventist Affiliation | 1013 | + + + | Race | Unknown | + + + | Ethnic Group | Unknown | + + + Author + + + | Author | [facility] | | | and [place] | + + + | Organization | [facility] [...] Team Providers + +------+ + | Care Cat Sitter Name | Role | Phone | + +------+ + PCP | Unavailable | + +------+ + Encounter Details +--------+ + + + + | Date | Type | Department | Care Team | Description | +--------+ + + + + | 12/14/ | Hospital | [place] [facility] | Chapito Garces, | | | 2009 | Encounter | HOSPITAL LABORATORY | Duc Gibson MD | | | | | [address] | | | | | | [place] | | | | | | [address] | | | | | | [phone] | | | +--------+ + + + [...]
--- OUTSIDE RECORDS SUMMARY | ~2019-09-03 | XMS | Encounter Summary ---
Demographics + + + | Address | [address] | | | [place] [address] | + + + | Home Phone [...] Organization | [facility] | | | and [...] Team Providers + +------+ + | Care Questioned Documents Examiner Name | Role | Phone | + +------+ + | No, Physician | PCP | Unavailable | + +------+ + Encounter Details +--------+ + + + + | Date | Type | Department | Care Team | Description | +--------+ + + + + | 09/13/ | Hospital | [place] [facility] | Emily Green, | | | 2014 | Encounter | HOSPITAL LABORATORY | DO [address] | | | | | [address] [place] | [place] [address] | | | | | [place], [place] | [phone] | | | | | [address] | | | | | | [phone] | | | +--------+ + + + [...] + + | COMPREHENSIVE | Routin | 09/13/2015 | | Results for this | | METABOLIC PANEL | e | 10:46 AM | | procedure are in the | | | | PST | | results section. | + +--------+ + + + documented in this encounter Results Comprehensive Metabolic Panel (09/13/2015 10:46 AM PST) + +-------+ + + + | Component | Value | Ref Range | Performed | Pathologist | | | | | At | Signature | + +-------+ + + + | Sodium | 138 | 132 - 143 | EXTERNAL | | | | | mmol/L | LAB | | + +-------+ + + + | Potassium | 4.3 | 3.3 - 4.9 | EXTERNAL | [...] +-------+ + + + | Glucose | 95 | 70 - 110 mg/dL | EXTERNAL | | | | | | LAB | | + +-------+ + + + | BUN, Bld | 10 | 5 - 26 mg/dL | EXTERNAL | | | | | | LAB | | + +-------+ + + + | Creatinine | 1.1 | 0.7 - 1.4 mg/dL | EXTERNAL | | | | | | LAB | | + +-------+ + + + | BUN/Creatin | 9.1 | 7.0 - 24.0 | EXTERNAL | [...] +-------+ + + + | Protein, | 6.8 | 6.6 - 8.5 g/dL | EXTERNAL | | | Total | | | LAB | | + +-------+ + + + | Albumin | 3.5 | 3.0 - 4.5 g/dL | EXTERNAL | | | | | | LAB | | + +-------+ + + + | Alkaline | 99 | 46 - 116 U/L | EXTERNAL | | | Phosphatase | | | LAB | | + +-------+ + + + | ALT, | 46 | 16 - 63 U/L | EXTERNAL | | | External | | | LAB | | + +-------+ + + + | AST, | 26 | <=38 U/L | EXTERNAL | | [...]
--- OUTSIDE RECORDS SUMMARY | ~2019-09-03 | XMS | Encounter Summary ---
Demographics + + + | Address | [address] | | | [place] [address] | + + + | Home Phone [...] Author | [facility] | | | and [place] | + + + | Organization | [facility] | | | and [place] [...] Team Providers + +------+ + | Care Responder Name | Role | Phone | + +------+ + | Emily Green DO | PCP | | + +------+ + Encounter Details +--------+ + + + + | Date | Type | Department | Care Team | Description | +--------+ + + + + | 01/14/ | Hospital | [facility] | Emliy Green, | | | 2016 | Encounter | [facility] | DO [address] [place] | | | | | [facility] [address] | [place] [address] | | | | | [address] [place], | [phone] | | | | | [place] [address] | | | | | | [phone] | | | +--------+ + + + [...]
--- OUTSIDE RECORDS SUMMARY | ~2019-09-03 | XMS | Encounter Summary ---
Demographics + + + | Address | [address] | | | [place] [address] | + + + | Home Phone | | + + + | Preferred Language | Unknown | + + + | Marital Status | Single | + + + | Roman Catholic Affiliation | CHR | + + + | Race | White | + + + | Ethnic Group | Not or | + + + Author + + + | Author | [facility] | + + + | Organization | [facility] | + + + | Address | Unknown | + + + | Phone | Unavailable | + + + Support + + +---------+ + | Name | Relationship | Address | Phone | + + +---------+ + | Thalia Armani | ECON | Unknown | | + + +---------+ + Care Team Providers + +------+ + | Care Prosthetic Technician Name | Role | Phone | + +------+ + | Meaghan Zhong MD | PCP | | + +------+ + Reason for Visit + + + | Reason | Comments | + + + | Social Work Notes | | + + + Encounter Details +--------+ + + + + | Date | Type | Department | Care Team | Description | +--------+ + + + + | /10/ | Telephone | SOCIAL WORK | Morena Swanson | Social Work Notes | | 2017 | | AMBULATORY [address] | [address] | | | | | [address] | [place], | | | | | Mailcode: CH6A | [place] [address] | | | | | [place], [place] | | | | | | [address] | | | | | | [phone] | | | +--------+ + + + [...]
--- OUTSIDE RECORDS SUMMARY | ~2019-09-03 | XMS | Encounter Summary ---
Demographics + + + | Address | [address] | | | [place] [address] | + + + | Home Phone | | + + + | Preferred Language | Unknown | + + + | Marital Status | Single | + + + | Taoist Affiliation | 1013 | + + + | Race | Unknown | + + + | Ethnic Group | Unknown | + + + Author + + + | Author | [facility] | | | and [place] | + + + | Organization | [facility] | | | and [place] [...] Providers + +------+ + | Care Health Care Liaison Name | Role | Phone | + +------+ + | No, Physician | PCP | Unavailable | + +------+ + Encounter Details +--------+ + + + + | Date | Type | Department | Care Team | Description | +--------+ + + + + | 12/25/ | [facility] | [place] [facility] | Clement Ventura | | | 2014 | Encounter | HOSPITAL EMERGENCY | [address] | | | | | CENTER [address] | [facility] | | | | | [address], [place] | [place] [address] | | | | | [address] | [phone] | | | | | [phone] | | | +--------+ + + + [...]
--- OUTSIDE RECORDS SUMMARY | ~2019-09-03 | XMS | Encounter Summary ---
Demographics + + + | Address | [address] | | | [place] [address] | + + + | Home Phone | | + + + | Preferred Language | Unknown | + + + | Marital Status | Single | + + + | Yazidi Affiliation | 1013 | + + + | Race | Unknown | + + + | Ethnic Group | Unknown | + + + Author + + + | Author | [facility] | | | and [place] | + + + | Organization | [facility] | | | and [place] [...] Team Providers + +------+ + | Care Carbon Paper Coating Supervisor Name | Role | Phone | [...] 2012 | | GASTROENTEROLOGY | [address] | (gastroesophageal | | | | [address] [place] | [address], | reflux disease) | | | | [address] [place], [place] | [place] [address] | (Primary Dx) | | | | [address] | [phone] | | | | | [phone] | | | +--------+ + + + [...]
--- OUTSIDE RECORDS SUMMARY | ~2019-09-03 | XMS | Encounter Summary ---
Demographics + + + | Address | [address] | | | [place] [address] | + + + | Home Phone | | + + + | Preferred Language | Unknown | + + + | Marital Status | Single | + + + | Confucianism Affiliation | 1013 | + + + | Race | Unknown | + + + | Ethnic Group | Unknown | + + + Author + + + | Author | [facility] | | | and [place] | + + + | Organization | [facility] | | | and [place] [...] Providers + +------+ + | Care Radio Repair Teacher Name | Role | Phone | [...] | | | | | | | [[phone]]Betzaida | | | | | | | onal | | | | | | | [...] + + | 11/16/ | Hospital | [facility] | Carmelo Patterson MD | Abdominal pain | | 2015 | Encounter | [facility] | [address] | (Primary Dx); | | | | [address] | [place] | Crohn's disease, | | | | [place] | [address] | without | | | | [address] | [phone] | complications (HCC) | | | | [phone] | | | +--------+ + + + [...] this encounter Last Filed Vital Signs + +---------+ + + | Vital Sign | Reading | Time Taken | Comments | + +---------+ + + | Blood Pressure | 104/86 | 11/16/2014 10:25 AM | | | | | PST | | + +---------+ + + | Pulse | 52 | 11/16/2014 10:25 AM | | | | | PST | | + +---------+ + + | Temperature | - | - | | + +---------+ + + | Respiratory Rate | 16 | 11/16/2014 10:10 AM | | | | | PST | | + +---------+ + + | Oxygen Saturation | 97% | 11/16/2014 10:25 AM | | | | | PST | | + +---------+ + + | Inhaled Oxygen | - | - | | | Concentration | | | | + +---------+ + + | Weight | - | - | | + +---------+ + + | Height | - | - | | + +---------+ + + | Body Mass Index | - | - | | + +---------+ + + documented in this encounter Functional [...] as of this encounter Discharge Instructions Instructions Almita Armstrong RN - 11/15/2014Patient Discharge Instructions after an Endo scopy Procedure ? You may resume your regular [...] the physician who did your procedure at [phone] if you have any questions or experience any of the following: ? Increasing abdominal pain, nausea, or vomiting. ? Chills and fever over 101F. ? New abdominal swelling or bloating. ? Signs of rectal bleeding (black or red stool. If you cannot get a hold of your physician, then call the [facility] [phone] . If necessary, report to the Emergency Department at [facility]. Quit smoking: If you smoke or have smoked within the last year, quitting is the most import ant thing you can do to protect and improve your health. Crohn s Disease Crohn s disease is a chronic inflammation of the intestinal tract that comes and goes. Cr ohn s is a form of Inflammatory Bowel Disease. The exact cause is not known. Chronic diarr hea may alternate with constipation. During a symptom flare, there may be intense abdominal pain and fever. Mucus, blood or pus may appear in the stool. This is a chronic illness and e pisodes of inflammation come and go over time. When the disease is not active, there are usu ally no symptoms. Home Care: DIET: Talk to your doctor or ask for a referral to a dietitian to develop a meal plan th at works for you. Learn what foods worsen your symptoms. Keeping a food diary may help with this. Eating smaller meals at more frequent intervals (4-5 times a day). Avoid greasy or fried foods. Limit consumption of milk and milk products (butter, margarine, cream sauces). If you are lactose intolerant ask your doctor to advise a digestive supplement. During a flare-up of your symptoms, avoid high fiber foods such as nuts, corn, popcorn a nd Sinhala vegetables. MEDICATIONS: For mild to moderate cramping and diarrhea, you may use Imodium AD (over-th e-counter), unless another medicine was prescribed. For acute flares of your illness, prescr iption medicines can be prescribed. Contact your doctor if this is needed. Follow Up with your doctor as advised by your staff. Support Groups for persons Crohn s disease can be a source of useful information on how others are coping with this illness. They are justyn vasquez in person, on the phone, or via the Internet. Contact the following resources for more information. Crohn s and Colitis [employer] of [employer] 862.295.9977 www.ccfa.org National Digestive Diseases Information Clearinghouse (NDDIC) 907.110.3566 www.digestive .niddk.nih.gov Get Prompt Medical Attention if any of the following occur: Fever of 100.4F(38C) or higher, or as directed by your healthcare provider Abdominal pain that does not respond to usual measures Mucus, pus or blood in the stool (dark or bright red) Repeated vomiting Abdominal swelling and pain that does not go away after a few hours 4153-7798 [employer]. [address] [place] [address]. All righ ts reserved. This information is not intended as a substitute for professional medical care. Always follow your healthcare professional's instructions. documented in this encounter Medications at Time [...] +--------+ + + + | COLONOSCOPY | | 11/16/2014 | Regional enteritis | | | | | 8:35 AM | of unspecified site | | | | | PST | ([facility]) Abdominal | | | | | | pain, unspecified | | | | | | site | | + +--------+ + + + | COLONOSCOPY | Routin | 11/16/2014 | | Results for this | | | e | 8:31 AM | | procedure are in the | | | | PST | | results section. | + +--------+ + + + documented in this encounter Results COLONOSCOPY (11/16/2014 8:31 AM PST) + + | Specimen | + + | | + + + + -+ | Narrative | Performed At | + + -+ | | [facility] | | GastroenterologyPatient Name: Rachid Mendez Date: | PROVATION | | 11/16/2014 8:31 AMMRN: [id number] #: [id number] of : | | | 1970Admit Type: AmbulatoryAge: 44Room: [facility] 02Gender: MaleNote | | | Status: FinalizedAttending MD: Carmelo Patterson, MDProcedure: | | | ColonoscopyIndications: Follow-up of Crohn's disease of | | | the colonProviders: Carmelo Patterson MD, Monique Tejada | | | ADITI Ling, RUBY NORTON, | | | TechnicianMedicines: Midazolam 5 mg IV, Diphenhydramine 50 | | | mg IV, Meperidine 100 mg IV, Zofran 4 mg | | | IVComplications: No immediate complications.Procedure: | | | Pre-Anesthesia Assessment: - Prior to the procedure, a History | | | and Physical was performed, and patient medications and | | | allergies were reviewed. The patient is competent. The risks | | | and benefits of the procedure and the sedation options and | | | risks were discussed with the patient. All questions were | | | answered and informed consent was obtained. Patient identification and | | | proposed procedure were verified by the physician, the nurse | | | and the technician trainee in the pre-procedure area in the endoscopy | | | suite. Mental Status Examination: alert and oriented. Airway | | | Examination: normal oropharyngeal airway and neck mobility and | | | Mallampati Class II (the uvula but not tonsillar pillars | | | visualized). Respiratory Examination: clear to auscultation. CV | | | Examination: normal. Prophylactic Antibiotics: The patient | | | does not require prophylactic antibiotics. Prior | | | Anticoagulants: The patient has taken no previous anticoagulant or | | | antiplatelet agents. ASA Grade Assessment: II - A patient with | | | mild systemic disease. After reviewing the risks and benefits, | | | the patient was deemed in satisfactory condition to undergo the | | | procedure. The anesthesia plan was to use moderate sedation / | | | analgesia (conscious sedation). Immediately prior to | | | administration of medications, the patient was re-assessed for | | | adequacy to receive sedatives. The heart rate, respiratory | | | rate, oxygen saturations, blood pressure, adequacy of pulmonary | | | ventilation, and response to care were monitored throughout | | | the procedure. The physical status of the patient was re-assessed | | | after the procedure. After I obtained informed consent, | | | the scope was passed under direct vision. Throughout the | | | procedure, the patient's blood pressure, pulse, and oxygen | | | saturations were monitored continuously. The endoscope was | | | introduced through the anus and advanced to the terminal ileum, with | | | identification of the appendiceal orifice and IC valve. The | | | colonoscopy was performed without difficulty. The patient | | | tolerated the procedure well. The quality of the bowel | | | preparation was poor. The ileocecal valve, terminal ileum and | | | rectum were photographed.Findings: The perianal and digital | | | rectal examinations were normal. Inflammation characterized by | | | altered vascularity, congestion (edema), erosions, erythema, | | | friability, granularity and confluent ulcerations was found in | | | a continuous and circumferential pattern from the rectum to the | | | sigmoid colon. The descending colon, the splenic flexure, the | | | transverse colon, the hepatic flexure, the ascending colon, the cecum | | | and the ileocecal valve were spared. This was moderate in | | | severity. Biopsies were taken with a cold forceps for | | | histology. Verification of patient identification for the | | | specimen was done by the physician and nurse using the | | | patient's name and date. Estimated blood loss was | | | minimal. The terminal ileum appeared normal.Impression: - | | | Preparation of the colon was poor. - Inflammation was found from | | | the rectum to the sigmoid colon secondary to left-sided | | | colitis. Biopsied. - The examined portion of the ileum was | | | normal.Recommendation: - Patient has a contact number available | | | for emergencies. The signs and symptoms of potential delayed | | | complications were discussed with the patient. Return to normal | | | activities tomorrow. Written discharge instructions were | | | provided to the patient. - Regular diet. - Discharge | | | patient to home. - Continue present medications. - Use | | | Rowasa enemas 1 per rectum daily for 1 month. - Await pathology | | | results. - Repeat colonoscopy in 3 years for surveillance based | | | on pathology results. - Return to GI clinic in 1 month. | | | - The findings and recommendations were discussed with the | | | patient.Carmelo Patterson MD11/16/2014 9:17 AMNumber of Addenda: 0Note | | | Initiated On: 11/16/2014 8:31 AMScope Withdrawal Time: 0 hours 10 | | | minutes 57 seconds Total Procedure Duration: 0 hours 19 minutes 13 | | | seconds Scope In: 8:50:16 AMScope Out: 9:09:29 AM [facility]. | | | [facility], [facility] [place] [address] | | | [phone] | | | - Continue present medications. | | | - Use Rowasa enemas 1 per rectum daily for 1 month. | | | - Await pathology results. | | | - Repeat colonoscopy in 3 years for surveillance based on pathology | | | results. | | | - Return to GI clinic in 1 month. | | | - The findings and recommendations were discussed with the patient. | | |Carmelo Patterson MD | | |11/16/2014 9:17 AM | | |Number of Addenda: 0 | | |Note Initiated On: 11/16/2014 8:31 AM | | |Scope Withdrawal Time: 0 hours 10 minutes 57 seconds | | |Total Procedure Duration: 0 hours 19 minutes 13 seconds | | |Scope In: 8:50:16 AM | | |Scope Out: 9:09:29 AM | | | [facility], [address] , [place] | | | [address] | | + + -+ + +---------+ [...] site | + + | Crohn's disease, without complications | + + documented in this encounter Administered Medications + +--------+ +-------+------+------+ | Medication Order | MAR | Action | Dose | Rate | Site | | | Action | Date | | | | + +--------+ +-------+------+------+ | diphenhydrAMINE (BENADRYL) | Given | 11/16/19 | 25 mg | | | | injection PRN, Starting Chelle | | 15 8:56 | | | | | 11/16/14 at 0847 | | AM PST | | | | + +--------+ +-------+------+------+ +-------+ +-------+---+---+ | Given | 11/16/19 | 25 mg | | | | | 15 8:39 | | | | | | AM PST | | | | +-------+ +-------+---+---+ +---+---+ | | | +---+---+ + +---------+ +---+-------+---+ | lactated ringers (LR) infusion | New Bag | 11/16/19 | | 100 | | | at 100 mL/hr, Intravenous, | | 15 7:45 | | mL/hr | | | CONTINUOUS, Starting Chelle 11/16/14 | | AM PST | | | | | at 0800, Pre-op | | | | | | + +---------+ +---+-------+---+ +---+---+ | | | +---+---+ + +-------+ +--------+---+---+ | meperidine (DEMEROL) 100 mg/mL | Given | 11/16/19 | 100 mg | | | | injection PRN, Starting Chelle | | 15 8:40 | | | | | 11/16/14 at 0840 | | AM PST | | | | + +-------+ +--------+---+---+ +---+---+ | | | +---+---+ + +-------+ +------+---+---+ | midazolam (VERSED) 5 mg/mL | Given | 11/16/19 | 1 mg | | | | injection PRN, Starting Chelle | | 15 8:52 | | | | | 11/16/14 at 0846 | | AM PST | | | | + +-------+ +------+---+---+ +-------+ +------+---+---+ | Given | 11/16/19 | 2 mg | | | | | 15 8:48 | | | | | | AM PST | | | | +-------+ +------+---+---+ | Given | 11/16/19 | 2 mg | | | | | 15 8:46 | | | | | | AM PST | | | | +-------+ +------+---+---+ + +---+ | | | + +---+ | ondansetron (ZOFRAN) 2 mg/mL | | | injection Starting [facility] 11/16/14 | | | at 0734, For 1 dose, SHAN, | | | NATHAN: go sharp, | | + +---+ | | | + +---+ + +-------+ +---+---+---+ | ondansetron (ZOFRAN) injection | Given | 11/16/19 | | | | | 4 mg 4 mg, Intravenous, EVERY 4 | | 15 7:45 | | | | | HOURS PRN, Nausea, Vomiting, | | AM PST | | | | | Starting [facility] 11/16/14 at 0731, | | | | | | | Recovery/Phase I | | | | | | + +-------+ +---+---+---+ +---+---+ | | | +---+---+ + +-------+ +------+---+---+ | ondansetron (ZOFRAN) injection | Given | 11/16/19 | 4 mg | | | | PRN, Starting [place] 11/16/14 at | | 15 8:44 | | | | | 0844 | | AM PST | | | | + +-------+ +------+---+---+ +---+---+ | | | +---+---+ + +-------+ +------+---+---+ | oxyCODONE (ROXICODONE) tablet 5 | Given | 11/16/19 | 5 mg | | | | mg 5 mg, Oral, ONCE, Chelle | | 15 11:15 | | | | | 11/16/14 at 1130, For 1 dose, | | AM PST | | | | | Post-op/Phase II | | | | | | + +-------+ +------+---+---+ +---+---+ | | | +---+---+ documented in this encounter"
--- OUTSIDE RECORDS SUMMARY | ~2019-09-03 | XMS | Encounter Summary ---
Demographics + + + | Address | [address] | | | [place] [address] | + + + | Home Phone | | + + + | Preferred Language | Unknown | + + + | Marital Status | Single | + + + | Anglican Affiliation | CHR | + + + | Race | White | + + + | Ethnic Group | Not or | + + + Author + + + | Author | [facility] | + + + | Organization | [facility] | + + + | Address | Unknown | + + + | Phone | Unavailable | + + + Support + + +---------+ + | Name | Relationship | Address | Phone | + + +---------+ + | Thalia Armani | ECON | Unknown | | + + +---------+ + Care Team Providers + +------+ + | Care Theatrical Dresser Name | Role | Phone | + +------+ + | Meaghan Zhong MD | PCP | | + +------+ + Reason for Visit +--------+ + | Reason | Comments | +--------+ + | Other | | +--------+ + Encounter Details +--------+ + + + + | Date | Type | Department | Care Team | Description | +--------+ + + + + | 12/08/ | Telephone | [facility] | Isaac Hartmann MD | Other | | 2015 | | [place] [facility] [address] | | | | | | [place] | | | | | | Mailcode: [place] | | | | | | for Health and | | | | | | [facility], [address] | | | | | | [place], [place] | | | | | | [address] | | | | | | [phone] | | | +--------+ + + + [...]
--- OUTSIDE RECORDS SUMMARY | ~2019-09-03 | XMS | Encounter Summary ---
Demographics + + + | Address | [address] | | | [place] [address] | + + + | Home Phone [...] Organization | [facility] [...] Team Providers + +------+ + | Care Customer Service Analyst Name | Role | Phone | + +------+ + | No, Physician | PCP | Unavailable | + +------+ + Encounter Details +--------+ + + + + | Date | Type | Department | Care Team | Description | +--------+ + + + + | 08/07/ | [facility] | [place] | Clement Ventura | | | 2013 | Encounter | HOSPITAL EMERGENCY | [address] | | | | | [address] | [facility] | | | | | [address] [place], [place] | [place] [address] | | | | | [address] | [phone] | | | | | [phone] | | | +--------+ + + + [...]
--- OUTSIDE RECORDS SUMMARY | ~2019-09-03 | XMS | Encounter Summary ---
Demographics + + + | Address | [address] | | | [place] [address] | + + + | Home Phone | | + + + | Preferred Language | Unknown | + + + | Marital Status | Single | + + + | Nondenominational Affiliation | 1013 | + + + | Race | Unknown | + + + | Ethnic Group | Unknown | + + + Author + + + | Author | [facility] | | | and [place] | + + + | Organization | [facility] | | | and [place] [...] Team Providers + +------+ + | Care Fingernail Former Name | Role | Phone | + +------+ + | No, Physician | PCP | Unavailable | + +------+ + Reason for Visit +--------+ + | Reason | Comments | +--------+ + | Emesis | bowel prep | +--------+ + Encounter Details +--------+ + + + + | Date | Type | Department | Care Team | Description | +--------+ + + + + | 11/15/ | Telephone | [facility] | Bryan Cuenca MD | Emesis (bowel prep) | | 2015 | | GASTROENTEROLOGY | [address], [place] | | | | | [address] [place] | [address] [place], [place] | | | | | [address] [place], [place] | [address] | | | | | [address] | | | | | | [phone] | | | +--------+ + + + [...]
--- OUTSIDE RECORDS SUMMARY | ~2019-09-03 | XMS | Encounter Summary ---
Demographics + + + | Address | [address] | | | [place] [address] | + + + | Home Phone [...] Team Providers + +------+ + | Care Magazine Supervisor Name | Role | Phone | [...] Medical Records | | 2015 | | [place] [address] | | Review | | | | [place] | | | | | | Mailcode: [place] | | | | | | [facility] | | | | | | [facility] | | | | | | [place], [place] | | | | | | [address] | | | | | | [phone] | | | +--------+ + + + [...]
--- OUTSIDE RECORDS SUMMARY | ~2019-09-03 | XMS | Encounter Summary ---
Demographics + + + | Address | [address] | | | [place] [address] | + + + | Home Phone | | + + + | Preferred Language | Unknown | + + + | Marital Status | Single | + + + | Muslim Affiliation | CHR | + + + [...] Team Providers + +------+ + | Care Armature Connector Name | Role | Phone | + [...] | +--------+ + + + + | 04/17/ | Telephone | [facility] | [address], | Request For Records | | 2016 | | [place] [address] | | | | | | [place] | | | | | | Mailcode: [place] | | | | | | for Health and | | | | | | [facility], [facility] | | | | | | [place], [place] | | | | | | [address] | | | | | | [phone] | | | +--------+ + + + [...]
--- OUTSIDE RECORDS SUMMARY | ~2019-09-03 | XMS | Encounter Summary ---
Demographics + + + | Address | [address] | | | [place] [address] | + + + | Home Phone [...] Organization | [facility] | | | and [place] [...] Team Providers + +------+ + | Care Medical Administrator Name | Role | Phone | + +------+ + | No, Physician | PCP | Unavailable | + +------+ + Encounter Details +--------+ + + + + | Date | Type | Department | Care Team | Description | +--------+ + + + + | 08/11/ | Hospital | [place] | Andrew Perez | | | 2013 | Encounter | HOSPITAL EMERGENCY | [address] | | | | | [address] | [address] | | | | | [address] [place], [place] | [place] [address] | | | | | [address] | [phone] | | | | | [phone] | | | +--------+ + + + [...] for this | | | e | 6:11 AM | | procedure are in the | | | | PST | | results section. | + +--------+ + + + | CBC W/AUTO | STAT | 08/11/2014 | | Results for this | | DIFFERENTIAL | | 5:56 AM | | procedure are in the | | | | PST | | results section. | + +--------+ + + + | LIPASE | STAT | 08/11/2014 | | Results for this | | | | 5:56 AM | | procedure are in the | | | | PST | | results section. | + +--------+ + + + | COMPREHENSIVE | STAT | 08/11/2014 | | Results for this | | METABOLIC PANEL | | 5:56 AM | | procedure are in the | | | | PST | | results section. | + +--------+ + + + documented in this encounter Results Sedimentation Rate (08/11/2014 6:11 AM PST) + +-------+ + + + | Component | Value | Ref Range | Performed | Pathologist | | | | | At | Signature | + +-------+ + + + | ESR | 8 | <=15 mm/h | EXTERNAL | | [...] | | + +---------+ + + Lipase (08/11/2014 5:56 AM PST) + +-------+ + + + | Component | Value | Ref Range | Performed | Pathologist | | | | | At | Signature | + +-------+ + + + | Lipase | 1,006 | 73 - 393 U/L | EXTERNAL [...] + +---------+ + + Comprehensive Metabolic Panel (08/11/2014 5:56 AM PST) + +-------+ + + + [...] +-------+ + + + | Calcium | 8.6 | 8.3 - 10.0 | EXTERNAL | [...] +-------+ + + + | BUN/Creatin | 9.3 | 7.0 - 24.0 | EXTERNAL | [...] +-------+ + + + | Alkaline | 74 | 33 - 151 U/L | EXTERNAL | | | Phosphatase | | | LAB | | + +-------+ + + + | ALT, | 72 | 16 - 63 U/L | EXTERNAL | | | External | | | LAB | | + +-------+ + + + | AST, | 35 | <=38 U/L | EXTERNAL | | [...] +---------+ + + CBC w/ Auto Differential (08/11/2014 5:56 AM PST) + +-------+ + + + | Component | Value | Ref Range | Performed | Pathologist | | | | | At | Signature | + +-------+ + + + | WBC | 10.7 | 4.6 - 10.5 | EXTERNAL | | | | | 1000/mm3 | LAB | | + +-------+ + + + | RBC | 3.84 | 4.36 - 5.83 | EXTERNAL | | | | | mil/mm3 | LAB | | + +-------+ + + + | HGB, | 13.3 | 13.1 - 17.4 | EXTERNAL | | | External | | g/dL | LAB | | + +-------+ + + + | HCT, | 38.1 | 39.0 - 51.9 % | EXTERNAL | | | External | | | LAB | | + +-------+ + + + | MCV | 99 | 82 - 96 fl | EXTERNAL | | | | | | LAB | | + +-------+ + + + | MCH | 34.6 | 27.7 - 32.3 pg | EXTERNAL | | | | | | LAB | | + +-------+ + + + | MCHC | 34.9 | 32.0 - 36.9 | EXTERNAL | | | | | g/dL | LAB | | + +-------+ + + + | RDW-CV | 12.8 | <=17.0 % | EXTERNAL | | | | | | LAB | | + +-------+ + + + | RDW-SD | 45.5 | 34.0 - 57.0 fL | EXTERNAL [...] + + + | % Segmented | 76.6 | 42.0 - 76.0 % | EXTERNAL | | | | | | LAB | | | Neutrophils | | | | | + +-------+ + + + | % | 15.7 | 20.0 - 40.0 % | EXTERNAL | | | Lymphocytes | | | LAB | | + +-------+ + + + | % Monocytes | 5 | 3.0 - 13.0 % | EXTERNAL | | | | | | LAB | | + +-------+ + + + | % | 2.2 | 0.0 - 7.0 % | EXTERNAL | | | Eosinophils | | | LAB | | + +-------+ + + + | % Basophils | 0.5 | 0.0 - 2.0 % | EXTERNAL | | | | | | LAB | | + +-------+ + + + | Absolute | 8.17 | 2.80 - 7.70 | EXTERNAL | | | Neutrophils | | 1000/mm3 | LAB | | + +-------+ + + + | Absolute | 1.68 | 1.20 - 3.30 | EXTERNAL | | | Lymphocytes | | 1000/mm3 | LAB | | + +-------+ + + + | Absolute | 0.53 | 0.00 - 0.80 | EXTERNAL | | | Monocytes | | 1000/mm3 | LAB | | + +-------+ + + + | Absolute | 0.24 | 0.00 - 0.70 | EXTERNAL | [...]
--- OUTSIDE RECORDS SUMMARY | ~2019-09-03 | XMS | Encounter Summary ---
Demographics + + + | Address | [address] | | | [place] [address] | + + + | Home Phone [...] Organization | [facility] | [...] Providers + +------+ + | Care Store Product Demonstrator Name | Role | Phone | + +------+ + PCP | Unavailable | + +------+ + Encounter Details +--------+ + + + + | Date | Type | Department | Care Team | Description | +--------+ + + + + | 02/06/ | Hospital | [place] | Nima Sena | | | 2008 | Encounter | HOSPITAL EMERGENCY | [address] | | | | | CENTER [address] | [place] [address] | | | | | [address] [place], [place] | [place] [address] | | | | | [address] | [phone] | | | | | [phone] | | | +--------+ + + + [...]
--- OUTSIDE RECORDS SUMMARY | ~2019-09-03 | XMS | Encounter Summary ---
Demographics + + + | Address | [address] | | | [place] [address] | + + + | Home Phone [...] Team Providers + +------+ + | Care Teleradiologist Name | Role | Phone | + [...] Medication Question | | 2015 | | [place] [phone] | MD | | | | | ADONAY Haasalvin | | | | | | Mailcode: [place] | | | | | | [facility] Health and | | | | | | [place], [facility] | | | | | | [place], [place] | | | | | | [address] | | | | | | [phone] | | | +--------+ + + + [...]
--- OUTSIDE RECORDS SUMMARY | ~2019-09-03 | XMS | Encounter Summary ---
Demographics + + + | Address | [address] | | | [place] [address] | + + + | Home Phone | | + + + | Preferred Language | Unknown | + + + | Marital Status | Single | + + + | Episcopalian Affiliation | 1013 | + + + | Race | Unknown | + + + | Ethnic Group | Unknown | + + + Author + + + | Author | [facility] | | | and [place] | + + + | Organization | [facility] | [...] Team Providers + +------+ + | Care Dealership General Manager Name | Role | Phone | [...] | [address] [place] | [facility], | | | | | [facility], [place] | [place] [address] | | | | | [address] | [phone] | | | | | [phone] | | | +--------+ + + + [...] attributed to spasm). He was admitted to [facility] where he was poppy alo with IV fluids and a [employer]. His pain improved rapidly and he was [...] He will follow a lower fat diet. [facility] Signed and Approved by: MEAGHAN ZHONG MD 07/10/2011 08:32:00 documented in this encounter Plan of Treatment Not on filedocumented as of this encounter Visit Diagnoses Not on filedocumented in this encounter"
--- OUTSIDE RECORDS SUMMARY | ~2019-09-03 | XMS | Encounter Summary ---
Demographics + + + | Address | [address] | | | [place] [address] | + + + | Home Phone | | + + + | Preferred Language | Unknown | + + + | Marital Status | Single | + + + | Baptism Affiliation | CHR | + + + [...] Team Providers + +------+ + | Care Musculoskeletal Physiotherapist Name | Role | Phone | + +------+ + | Meaghan Zhong MD | PCP | | + +------+ + Reason for Visit + + + | Reason | Comments | + + + | AP - Abdominal pain | | + + + Encounter Details +--------+ + + + + | Date | Type | Department | Care Team | Description | +--------+ + + + + | 01/28/ | Telephone | [facility] | [address], | AP - Abdominal pain | | 2017 | | [place] [address] | MD | | | | | ADONAY [place] | | | | | | Mailcode: [place] | | | | | | [facility] and | | | | | | [facility], [facility] | | | | | | [place], [place] | | | | | | [address] | | | | | | [phone] | | | +--------+ + + + [...]
--- OUTSIDE RECORDS SUMMARY | ~2019-09-03 | XMS | Encounter Summary ---
Demographics + + + | Address | [address] | | | [place] [address] | + + + | Home Phone | | + + + | Preferred Language | Unknown | + + + | Marital Status | Single | + + + | Islam Affiliation | CHR | + + + [...] Team Providers + +------+ + | Care Stitch Separator Name | Role | Phone | [...] | | 2017 | | Center at [facility] [address] | | | | | | [place] | | | | | | Mailcode: Center | | | | | | for Health and | | | | | | [facility], [address] | | | | | | [place], [place] | | | | | | [address] | | | | | | [phone] | | | +--------+ + + + [...]
--- OUTSIDE RECORDS SUMMARY | ~2019-09-03 | XMS | Encounter Summary ---
Demographics + + + | Address | [address] | | | [place] [address] | + + + | Home Phone | | + + + | Preferred Language | Unknown | + + + | Marital Status | Single | + + + | Muslim Affiliation | 1013 | + + + | Race | Unknown | + + + | Ethnic Group | Unknown | + + + Author + + + | Author | [facility] | | | and [place] | + + + | Organization | [facility] | | | and [...] Providers + +------+ + | Care Air Box Tester Name | Role | Phone | + +------+ + | Emily Green DO | PCP | | + +------+ + Reason for Referral Diagnostic/Screening (Routine) +--------+--------+ + + + + | Status | Reason | Specialty | Diagnoses / | Referred By | Referred To | | | | | Procedures | Contact | Contact | +--------+--------+ + + + + | Closed | | Radiology | Diagnoses | Yenifer | | | | | | Crohn's | MD [place] | | | | | | disease of | [address] | | | | | | large | [address] | | | | | | intestine | [facility], | | | | | | with | [place] | | | | | | unspecified | [address] | | | | | | complication | | | | | | | s (HCC) | | | | | | | Procedures | | | | | | | CT Abdomen | | | | | | | Pelvis w | | | | | | | Contrast | | | +--------+--------+ + + + + Reason for Visit Diagnostic/Screening (Routine) +--------+--------+ + + + + | Status | Reason | Specialty | Diagnoses / | Referred By | Referred To | | | | | Procedures | Contact | Contact | +--------+--------+ + + + + | Closed | | Radiology | Diagnoses | Yenifer, | | | | | | Crohn's | [place] | | | | | | disease of | [address] | | | | | | large | [address] | | | | | | intestine | [place], | | | | | | with | [place] | | | | | | unspecified | [address] | | | | | | complication | | | | | | | s (HCC) | | | | | | | Procedures | | | | | | | CT Abdomen | | | | | | | Pelvis w | | | | | | | Contrast | | | +--------+--------+ + + + + Encounter Details +--------+ + + + + | Date | Type | Department | Care Team | Description | +--------+ + + + + | 05/09/ | Hospital | [facility] | [address], | Crohn's disease of | | 2015 | Encounter | [facility] [address] | | large intestine with | | | | [place], | | unspecified | | | | [place] [address] | | complications (HCC) | | | | [phone] | | | +--------+ + + + [...] as of this encounter Plan of Treatment + +---------+--------+ + + | Name | Type | Priori | Associated Diagnoses | Order Schedule | | | | ty | | | + +---------+--------+ + + | CT Abdomen Pelvis w | Imaging | Routin | Crohn's disease of | 1 Occurrences | | Contrast | | e | large intestine | starting 05/09/2016 | | | | | with unspecified | until 05/09/2016 | | | | | complications (HCC) | | + +---------+--------+ + + documented as of this encounter Visit Diagnoses + + | Diagnosis | + + | Crohn's disease of large intestine with unspecified complications (HCC) | + + documented in this encounter"
--- OUTSIDE RECORDS SUMMARY | ~2019-09-03 | XMS | Encounter Summary ---
Demographics + + + | Address | [address] | | | [place] [address] | + + + | Home Phone [...] + + + | Author | [facility] | | | and [place] | + + + | Organization | [facility] | | [...] Team Providers + +------+ + | Care Pattern Perforating Machine Operator Name | Role | Phone | + +------+ + PCP | Unavailable | + +------+ + Encounter Details +--------+ + + + + | Date | Type | Department | Care Team | Description | +--------+ + + + + | 06/10/ | Abstract | [facility] | [facility] | | | 2011 | | Conversion Location | SR | | | | | [phone] | | | +--------+ + + + [...] + + + | Blood Pressure | 120/80 | 09/04/2010 12:00 AM | | | | | PST | | + + + + + | Pulse | - | - | | + + + + + | Temperature | - | - | | + + + + + | Respiratory Rate | - | - | | + + + + + | Oxygen Saturation | - | - | | + + + + + | Inhaled Oxygen | - | - | | | Concentration | | | | + + + + + | Weight | 63 kg (139 lb) | 09/04/2010 12:00 AM | | | | | PST | | + + + + + | Height | 157.5 cm (5' 2") | 03/12/2009 12:00 AM | | | | | PDT | | + + + + + | Body Mass Index | 25.42 | 03/12/2009 12:00 AM | | | | | PDT | | + + + + + documented in this encounter Plan of Treatment Not on filedocumented as of this encounter Procedures + +--------+ + + + | Procedure Name | Priori | Date/Time | Associated Diagnosis | Comments | | | ty | | | | + +--------+ + + + | ENDOSCOPY, COLON, | Routin | 10/23/2010 | | Results for this | | DIAGNOSTIC | e | 12:00 AM | | procedure are in the | | | | PST | | results section. | + +--------+ + + + documented in this encounter Results ENDOSCOPY, COLON, DIAGNOSTIC (10/23/2010 12:00 AM PST) + + | Specimen | + + | | + + + + + | Narrative | Performed At | + + + | | | + + + documented in this encounter Visit Diagnoses Not on filedocumented in this encounter
--- OUTSIDE RECORDS SUMMARY | ~2019-09-03 | XMS | Encounter Summary ---
Demographics + + + | Address | [address] | | | [place] [address] | + + + | Home Phone | | + + + | Preferred Language | Unknown | + + + | Marital Status | Single | + + + | Sikh Affiliation | CHR | + + + [...] Team Providers + +------+ + | Care Educational Interpreter Name | Role | Phone | + +------+ + | Meaghan Zhong MD | PCP | | + +------+ + Encounter Details +--------+ + + + + | Date | Type | Department | Care Team | Description | +--------+ + + + + | 05/14/ | Orders Only | [facility] | [address], | | | 2014 | | [place] [facility] [address] | | | | | | [place] | | | | | | Mailcode: [place] | | | | | | [facility] Health and | | | | | | Healing, [address] | | | | | | [facility] [place] | | | | | | [address] | | | | | | [phone] | | | +--------+ + + + [...]
--- OUTSIDE RECORDS SUMMARY | ~2019-09-03 | XMS | Encounter Summary ---
Demographics + + + | Address | [address] | | | [place] [address] | + + + | Home Phone | | + + + | Preferred Language | Unknown | + + + | Marital Status | Single | + + + | Druze Affiliation | 1013 | + + + | Race | Unknown | + + + | Ethnic Group | Unknown | + + + Author + + + | Author | [facility] | | | and [place] | + + + | Organization | [facility] | | [...] Team Providers + +------+ + | Care Switch Repairer Name | Role | Phone | + [...] | [address], [place] | [place] [address] | | | | | [address] | [phone] | | | | | [phone] | | | +--------+ + + + [...]
--- OUTSIDE RECORDS SUMMARY | ~2019-09-03 | XMS | Encounter Summary ---
Demographics + + + | Address | [address] | | | [place] [address] | + + + | Home Phone | | + + + | Preferred Language | Unknown | + + + | Marital Status | Single | + + + | Jew Affiliation | 1013 | + + + | Race | Unknown | + + + | Ethnic Group | Unknown | + + + Author + + + | Author | [facility] | | | and [place] | + + + | Organization | [facility] [...] Team Providers + +------+ + | Care Launderette Attendant Name | Role | Phone | + [...] [place] | | | | | | [address] | | | | | | [phone] | | | +--------+ + + + [...]
--- OUTSIDE RECORDS SUMMARY | ~2019-09-03 | XMS | Encounter Summary ---
Demographics + + + | Address | [address] | | | [place] [address] | + + + | Home Phone | | + + + | Preferred Language | Unknown | + + + | Marital Status | Single | + + + | Buddhist Affiliation | CHR | + + + | Race | White | + + + | Ethnic Group | Not or | + + + Author + + + | Author | [facility] | + + + | Organization | [facility] | + + + | Address | Unknown | + + + | Phone | Unavailable | + + + Support + + +---------+ + | Name | Relationship | Address | Phone | + + +---------+ + | Thalia Armani | ECON | Unknown | | + + +---------+ + Care Team Providers + +------+ + | Care Cigarette Making Examiner Name | Role | Phone | [...] For Records | | 2016 | | [place] [address] | | | | | | [place]ONYA [address] [place] | | | | | | Mailcode: [facility] | | | | | | for Health and | | | | | | [facility], [facility] [address] | | | | | | [place], [place] | | | | | | [address] | | | | | | [phone] | | | +--------+ + + + [...]
--- OUTSIDE RECORDS SUMMARY | ~2019-09-03 | XMS | Encounter Summary ---
Demographics + + + | Address | [address] | | | [place] [address] | + + + | Home Phone [...] + | Organization | [facility] | | | and [place] [...] Team Providers + +------+ + | Care Slubber Operator Name | Role | Phone | + +------+ + | No, Physician | PCP | Unavailable | + +------+ + Reason for Visit + + + | Reason | Comments | + + + | Referral | Patient needs to call if he wants to schedule | | (PreAuthorization) | | + + + Encounter Details +--------+ + + + + | Date | Type | Department | Care Team | Description | +--------+ + + + + | 08/23/ | Telephone | [facility] | Carmelo Patterson MD | Referral | | 2013 | | GASTROENTEROLOGY | [address] [facility] | (PreAuthorization) | | | | [address] [facility] | [place], [place] | (Patient needs to | | | | [address] [place] | [address] | call if he wants to | | | | [address] | [phone] | schedule) | | | | [phone] | | | +--------+ + + + [...]
--- OUTSIDE RECORDS SUMMARY | ~2019-09-03 | XMS | Encounter Summary ---
Demographics + + + | Address | [address] | | | [place] [address] | + + + | Home Phone [...] Organization | [facility] | | | and [...] Team Providers + +------+ + | Care Assembler [employer] Name | Role | Phone | + +------+ + | No, Physician | PCP | Unavailable | + +------+ + Encounter Details +--------+ + + + + | Date | Type | Department | Care Team | Description | +--------+ + + + + | 11/29/ | Emergency | [facility] | Alex Isaac | Flank pain | | 2015 | | [facility] | DO [address] | | | | EMERGENCY [address] | [address] | | | | | [address] | [place] | | | | | [place] | [address] | | | | | [address] | [phone] | | | | | [phone] | | | +--------+ + + + [...] GROWTH | | | Testing performed at [facility], [address] | | | [place] [address] | | + + + + +---------+ [...] EXTERNAL | | | | performed at [facility], [facility] | | LAB | | | | [address], [place], | | | | | | [place] [address] | | | | + + + + + + | Clarity | CLOUDYComment: Testing | | EXTERNAL | | | | performed at [facility], [address] | | LAB | | | | [address] [place], | | | | | | [place] [address] | | | | + + + + + + | Specific | 1.015Comment: Testing | 1.001 - 1.035 | EXTERNAL | | | [place] | performed at [facility], [address] | | LAB | | | | [address] [place], | | | | | | [place] [address] | | | | + + + + + + | Leukocyte | NEGATIVEComment: Testing | | EXTERNAL | | | Esterase, | performed at [facility], [address] | | LAB | | | Urine | [address] [place], | | | | | | [place] [address] | | | | + + + + + + | Nitrite, | NEGATIVEComment: Testing | | EXTERNAL | | | Urine | performed at [facility], [address] | | LAB | | | | [address] [place], | | | | | | [place] [address] | | | | + + + + + + | Urobilinoge | 0.2Comment: Testing | mg/dL | EXTERNAL | | | n, Urine | performed at [facility], [address] | | LAB | | | | [address] [place], | | | | | | [place] [address] | | | | + + + + + + | Protein, | 30 (A)Comment: Testing | mg/dL | EXTERNAL | | | Urine | performed at [facility], [address] | | LAB | | | | [address] [place], | | | | | | [place] [address] | | | | + + + + + + | pH, Urine | 7.5Comment: Testing | 4.6 - 8.0 | EXTERNAL | | | | performed at [facility], [address] | | LAB | | | | [address] [place], | | | | | | [place] [address] | | | | + + + + + + | Blood, | NEGATIVEComment: Testing | | EXTERNAL | | | Urine | performed at [facility], [address] | | LAB | | | | [address] [place], | | | | | | [place] [address] | | | | + + + + + + | Ketones | NEGATIVEComment: Testing | mg/dL | EXTERNAL | | | | performed at [facility], [address] | | LAB | | | | [address] [place], | | | | | | [place] [address] | | | | + + + + + + | Bilirubin, | NEGATIVEComment: Testing | | EXTERNAL | | | Urine | performed at [facility], [address] | | LAB | | | | [address] [place], | | | | | | [place] [address] | | | | + + + + + + | Glucose, | NEGATIVEComment: Testing | mg/dL | EXTERNAL | | | Urine | performed at [facility], [address] | | LAB | | | | [address] [place], | | | | | | [place] [address] | | | | + + + [...] EXTERNAL | | | | performed at [facility], [address] | | LAB | | | | [address] [place], | | | | | | [place] [address] | | | | + + + + + + | RBC, UA | 1-5Comment: Testing | 0 - 2 /hpf | EXTERNAL | | | | performed at [facility], [address] | | LAB | | | | [address] [place], | | | | | | [place] [address] | | | | + + + + + + | Epithelial | 6-10Comment: Testing | /lpf | EXTERNAL | | | Cells | performed at [facility], [address] | | LAB | | | | [address] [place], | | | | | | [place] [address] | | | | + + + + + + | Bacteria, | 2+ (A)Comment: Testing | | EXTERNAL | | | UA | performed at [facility], [address] | | LAB | | | | [address] [place], | | | | | | [place] [address] | | | | + + + + + + | Crystals | 4+Comment: | /hpf | EXTERNAL | | | | PHOSPHATESTesting | | LAB | | | | performed at [facility], [address] | | | | | | [address] [place], | | | | | | [place] [address] | | | | + + + + + + | Urinalysis | CULTURE TO | | EXTERNAL | | | Comments | FOLLOWComment: Testing | | LAB | | | | performed at [facility], [address] | | | | | | [address] [place], | | | | | | [place] [address] | | | | + + + [...] EXTERNAL | | | | performed at [facility], [address] | K/uL | LAB | | | | [address] [place], | | | | | | [place] [address] | | | | + + + + + + | RED CELL | 4.38Comment: Testing | 4.20 - 5.70 | EXTERNAL | | | COUNT | performed at [facility], [address] | M/uL | LAB | | | | [address] [place], | | | | | | [place] [address] | | | | + + + + + + | Hgb | 14.7Comment: Testing | 13.2 - 17.0 | EXTERNAL | | | | performed at [facility], [address] | g/dL | LAB | | | | [address] [place], | | | | | | [place] [address] | | | | + + + + + + | Hematocrit, | 43.3Comment: Testing | 39.0 - 50.0 % | EXTERNAL | | | POC | performed at [facility], [address] | | LAB | | | | [address] [place], | | | | | | [place] [address] | | | | + + + + + + | MCV | 98.9Comment: Testing | 80.0 - 100.0 fl | EXTERNAL | | | | performed at [facility], [address] | | LAB | | | | [address] [place], | | | | | | [place] [address] | | | | + + + + + + | MCH | 33.5Comment: Testing | 27.0 - 34.0 pg | EXTERNAL | | | | performed at [facility], [address] | | LAB | | | | [address] [place], | | | | | | [place] [address] | | | | + + + + + + | MCHC | 33.9Comment: Testing | 32.0 - 35.5 | EXTERNAL | | | | performed at [facility], [address] | g/dL | LAB | | | | [address] [place], | | | | | | [place] [address] | | | | + + + + + + | RDW-CV | 45.5Comment: Testing | 37 - 53 fl | EXTERNAL | | | | performed at [facility], [address] | | LAB | | | | [address] [place], | | | | | | [place] [address] | | | | + + + + + + | Platelet | 229Comment: Testing | 150 - 400 K/uL | EXTERNAL | | | Count | performed at [facility], [address] | | LAB | | | Plasma | [address] [place], | | | | | | [place] [address] | | | | + + + + + + | MPV | 7.9Comment: Testing | fl | EXTERNAL | | | | performed at [facility], [address] | | LAB | | | | [address] [place], | | | | | | [place] [address] | | | | + + + + + + | Differentia | AUTOMATEDComment: | | EXTERNAL | | | l Type | Testing performed at | | LAB | | | | [facility], [address] [place], | | | | | | [place] [address] | | | | + + + + + + | % Segmented | 55.91Comment: Testing | % | EXTERNAL | | | | performed at [facility], [address] | | LAB | | | Neutrophils | [address] [place], | | | | | | [place] [address] | | | | + + + + + + | % | 34.40Comment: Testing | % | EXTERNAL | | | Lymphocytes | performed at [facility], [address] | | LAB | | | | [address] [place], | | | | | | [place] [address] | | | | + + + + + + | % Monocytes | 6.21Comment: Testing | % | EXTERNAL | | | | performed at [facility], [address] | | LAB | | | | [address] [place], | | | | | | [place] [address] | | | | + + + + + + | % | 2.11Comment: Testing | % | EXTERNAL | | | Eosinophils | performed at [facility], [address] | | LAB | | | | [address] [place], | | | | | | [place] [address] | | | | + + + + + + | % Basophils | 1.37Comment: Testing | % | EXTERNAL | | | | performed at [facility], [address] | | LAB | | | | [address] [place], | | | | | | [place] [address] | | | | + + + + + + | Absolute | 5.22Comment: Testing | 1.90 - 7.40 | EXTERNAL | | | Segmented | performed at [facility], [address] | K/uL | LAB | | | Neutrophils | [address] [place], | | | | | | [place] [address] | | | | + + + + + + | Absolute | 3.21Comment: Testing | 1.00 - 3.90 | EXTERNAL | | | Lymphocytes | performed at [facility], [address] | K/uL | LAB | | | | [address] [place], | | | | | | [place] [address] | | | | + + + + + + | Absolute | 0.58Comment: Testing | 0.00 - 0.80 | EXTERNAL | | | Monocytes | performed at [facility], [address] | K/uL | LAB | | | | [address] [place], | | | | | | [place] [address] | | | | + + + + + + | Absolute | 0.20Comment: Testing | 0.00 - 0.50 | EXTERNAL | | | Eosinophils | performed at [facility], [address] | K/uL | LAB | | | | [address] [place], | | | | | | [place] [address] | | | | + + + + + + | Absolute | 0.13 (H)Comment: Testing | 0.00 - 0.10 | EXTERNAL | | | Basophils | performed at [facility], [address] | K/uL | LAB | | | | [address], | | | | | | [place] [address] | | | | + + + [...] EXTERNAL | | | | performed at [facility], [address] | | LAB | | | | [address] [place], | | | | | | [place] [address] | | | | + + + [...] EXTERNAL | | | | performed at [facility], [address] | | LAB | | | | [address] [place], | | | | | | [place] [address] | | | | + + + [...] EXTERNAL | | | | performed at [facility], [address] | mmol/L | LAB | | | | [address] [place], | | | | | | [place] [address] | | | | + + + + + + | K | 4.1Comment: Testing | 3.5 - 4.9 | EXTERNAL | | | | performed at [facility], [address] | mmol/L | LAB | | | | [address] [place], | | | | | | [place] [address] | | | | + + + + + + | Cl | 109Comment: Testing | 99 - 109 mmol/L | EXTERNAL | | | | performed at [facility], [address] | | LAB | | | | [address] [place], | | | | | | [place] [address] | | | | + + + + + + | CO2 | 26Comment: Testing | 23 - 32 mmol/L | EXTERNAL | | | | performed at [facility], [address] | | LAB | | | | [address] [place], | | | | | | [place] [address] | | | | + + + + + + | Anion Gap | 13Comment: Testing | 5 - 20 mmol/L | EXTERNAL | | | | performed at [facility], [address] | | LAB | | | | [address] [place], | | | | | | [place] [address] | | | | + + + + + + | Glucose, | 108 (H)Comment: Testing | 65 - 99 mg/dL | EXTERNAL | | | Fasting | performed at [facility], [address] | | LAB | | | | [address] [place], | | | | | | [place] [address] | | | | + + + + + + | BUN | 25Comment: Testing | 8 - 25 mg/dL | EXTERNAL | | | | performed at [facility], [address] | | LAB | | | | [address] [place], | | | | | | [place] [address] | | | | + + + + + + | Creatinine | 1.41 (H)Comment: Testing | 0.70 - 1.30 | EXTERNAL | | | | performed at [facility], [address] | mg/dL | LAB | | | | [address] [place], | | | | | | [place] [address] | | | | + + + + + + | BUN/Creatin | 18Comment: Testing | | EXTERNAL | | | ine Ratio | performed at [facility], [address] | | LAB | | | | [address] [place], | | | | | | [place] [address] | | | | + + + + + + | Calcium | 8.7Comment: Testing | 8.5 - 10.5 | EXTERNAL | | | | performed at [facility], [address] | mg/dL | LAB | | | | [address] [place], | | | | | | [place] [address] | | | | + + + + + + | Protein, | 6.3Comment: Testing | 6.3 - 8.2 g/dL | EXTERNAL | | | Total | performed at [facility], [address] | | LAB | | | | [address] [place], | | | | | | [place] [address] | | | | + + + + + + | Albumin | 3.5 (L)Comment: Testing | 3.6 - 5.0 g/dL | EXTERNAL | | | | performed at [facility], [address] | | LAB | | | | [address] [place], | | | | | | [place] [address] | | | | + + + + + + | Globulin | 2.8Comment: Testing | 1.3 - 4.9 g/dL | EXTERNAL | | | | performed at [facility], [address] | | LAB | | | | [address] [place], | | | | | | [place] [address] | | | | + + + + + + | A/G Ratio | 1.2Comment: Testing | 1.0 - 2.4 | EXTERNAL | | | | performed at [facility], [address] | | LAB | | | | [address] [place], | | | | | | [place] [address] | | | | + + + + + + | Bilirubin | 0.3Comment: Testing | 0.1 - 1.5 mg/dL | EXTERNAL | | | Total | performed at [facility], [address] | | LAB | | | | [address] [place], | | | | | | [place] [address] | | | | + + + + + + | ALP, | 92Comment: Testing | 35 - 115 U/L | EXTERNAL | | | External | performed at [facility], [address] | | LAB | | | | [address] [place], | | | | | | [place] [address] | | | | + + + + + + | AST | 21Comment: Testing | 10 - 45 U/L | EXTERNAL | | | | performed at [facility], [address] | | LAB | | | | [address] [place], | | | | | | [place] [address] | | | | + + + + + + | ALT | 41Comment: Testing | 10 - 65 U/L | EXTERNAL | | | | performed at [facility], [address] | | LAB | | | | [address] [place], | | | | | | [place] [address] | | | | + + + [...] | | | | | | at [facility], [address] | | | | | | [place], [place] | | | | | | [address] | | | | + + + [...]
--- OUTSIDE RECORDS SUMMARY | ~2019-09-03 | XMS | Encounter Summary ---
Demographics + + + | Address | [address] | | | [place] [address] | + + + | Home Phone [...] | Organization | [facility] | [...] Providers + +------+ + | Care Manager Education Name | Role | Phone | + +------+ + PCP | Unavailable | + +------+ + Encounter Details +--------+ + + + + | Date | Type | Department | Care Team | Description | +--------+ + + + + | 02/01/ | Hospital | [facility] | Meaghan Zhong | | | 2009 | Encounter | HOSPITAL [facility]ORATORY | [address] | | | | | [address] [place] | [address] [facility], | | | | | [facility], [place] | [place] [address] | | | | | [address] | [phone] | | | | | [phone] | | | +--------+ + + + [...]
--- OUTSIDE RECORDS SUMMARY | ~2019-09-03 | XMS | Encounter Summary ---
Demographics + + + | Address | [address] | | | [place] [address] | + + + | Home Phone | | + + + | Preferred Language | Unknown | + + + | Marital Status | Single | + + + | Mu-Ism Affiliation | 1013 | + + + | Race | Unknown | + + + | Ethnic Group | Unknown | + + + Author + + + | Author | [facility] | | | and [place] | + + + | Organization | [facility] [...] Team Providers + +------+ + | Care Corrections Sergeant Name | Role | Phone | + [...] + + | 08/23/ | Telephone | [facility] | Carmelo Patterson MD | Referral | | 2013 | | GASTROENTEROLOGY | [address] [facility] | (PreAuthorization) | | | | [address] [facility] | [place], [place] | (Patient needs to | | | | [address] [place] | [address] | call if he wants to | | | | [address] | [phone] | schedule) | | | | [phone] | | | +--------+ + + + [...]
--- OUTSIDE RECORDS SUMMARY | ~2019-09-03 | XMS | Encounter Summary ---
Demographics + + + | Address | [address] | | | [place] [address] | + + + | Home Phone | | + + + | Preferred Language | Unknown | + + + | Marital Status | Single | + + + | Taoist Affiliation | CHR | + + + [...] Team Providers + +------+ + | Care Academic Department Chair Name | Role | Phone | + +------+ + | Meaghan Zhong MD | PCP | | + +------+ + Encounter Details +--------+ + + + + | Date | Type | Department | Care Team | Description | +--------+ + + + + | 09/30/ | Telephone | [facility] | Bea Parks MD | | | 2007 | | [place] at [facility] [address] | [address] | | | | | [address] [place] | [place], | | | | | Mailcode: [place] | [place] [address] | | | | | [facility] and | [phone] | | | | | [facility] | | | | | | [place], [place] | | | | | | [address] | | | | | | [phone] | | | +--------+ + + + [...]
--- OUTSIDE RECORDS SUMMARY | ~2019-09-03 | XMS | Encounter Summary ---
Demographics + + + | Address | [address] | | | [place] [address] | + + + | Home Phone | | + + + | Preferred Language | Unknown | + + + | Marital Status | Single | + + + | Denominational Affiliation | 1013 | + + + | Race | Unknown | + + + | Ethnic Group | Unknown | + + + Author + + + | Author | [facility] [place] | | | and [place] | + + + | Organization | [facility] | | | and [...] Providers + +------+ + | Care Business Partner Name | Role | Phone | + +------+ + | Emily Green DO | PCP | | + +------+ + Reason for Visit + + + | Reason | Comments | + + + | Appointment | r/s procedure | + + + Encounter Details +--------+ + + + + | Date | Type | Department | Care Team | Description | +--------+ + + + + | 03/10/ | Telephone | [facility] | Carmelo Patterson MD | Appointment (r/s | | 2016 | | GASTROENTEROLOGY | [address] | procedure ) | | | | [address] [facility] | [place], [place] | | | | | [address] [place], [place] | [address] | | | | | [address] | [phone] | | | | | [phone] | | | +--------+ + + + [...]
--- OUTSIDE RECORDS SUMMARY | ~2019-09-03 | XMS | Encounter Summary ---
Demographics + + + | Address | [address] | | | [place] [address] | + + + | Home Phone | | + + + | Preferred Language | Unknown | + + + | Marital Status | Single | + + + | Jehovah'S Witness Affiliation | CHR | + + + [...] Team Providers + +------+ + | Care Corporate Financial Analyst Name | Role | Phone | [...] | [address] | [place], | | | | | Mailcode: [place] | [place] [address] | | | | | [place], [place] | | | | | | [address] | | | | | | [phone] | | | +--------+ + + + [...]
--- OUTSIDE RECORDS SUMMARY | ~2019-09-03 | XMS | Encounter Summary ---
Demographics + + + | Address | [address] | | | [place] [address] | + + + | Home Phone [...] + | Author | [facility] | | | and [place] | + + + | Organization | [facility] | | [...] Team Providers + +------+ + | Care Employee Welfare Manager Name | Role | Phone | [...] Encounter | HOSPITAL EMERGENCY | MD [address] | | | | | CENTER [address] | [place], | | | | | [address] [place], [place] | [place] [address] | | | | | [address] | [phone] | | | | | [phone] | | | +--------+ + + + [...] - 1.030 | EXTERNAL | | | [place], | | | LAB | | | [...] | | | abnormality is identified. JOB#: [id number] | | | Read By: RAGHU SUMMERS [...] hernia. CONCLUSION:No acute abnormality is identified. JOB#: [id number] | | Read By: RAGHU SUMMERS MD [...] identified. | | | | | |JOB#: [id number] | | | |Read By: RAGHU SUMMERS MD | | | |Released By: RAGHU SUMMERS MD | |Date: 11/04/2014 09:56 | | | | | + + documented in this encounter Visit Diagnoses Not on filedocumented in this encounter"
--- OUTSIDE RECORDS SUMMARY | ~2019-09-03 | XMS | Encounter Summary ---
Demographics + + + | Address | [address] | | | [place] [address] | + + + | Home Phone | | + + + | Preferred Language | Unknown | + + + | Marital Status | Single | + + + | Pentecostal Affiliation | CHR | + + + | Race | White | + + + | Ethnic Group | Not or | + + + Author + + + | Author | [facility] | + + + | Organization | [facility] | + + + | Address | Unknown | + + + | Phone | Unavailable | + + + Support + + +---------+ + | Name | Relationship | Address | Phone | + + +---------+ + | Thalia Armani | ECON | Unknown | | + + +---------+ + Care Team Providers + +------+ + | Care Certified Drug Counselor Name | Role | Phone | [...] from Patient | | 2016 | | [place] at [facility] [address] | | | | | | [address] [place] | | | | | | Mailcode: [place] | | | | | | for Health and | | | | | | [facility], [facility] [address] | | | | | | [place], [place] | | | | | | [address] | | | | | | [phone] | | | +--------+ + + + [...]
--- OUTSIDE RECORDS SUMMARY | ~2019-09-03 | XMS | Encounter Summary ---
Demographics + + + | Address | [address] | | | [place] [address] | + + + | Home Phone | | + + + | Preferred Language | Unknown | + + + | Marital Status | Single | + + + | Faith Affiliation | CHR | + + + [...] Team Providers + +------+ + | Care Occupational Therapist Rehab Manager Name | Role | Phone | [...] | | 2014 | | Center at [facility] [address] | Gastroenterology | Gastroenterology | | | | [address] | | | | | | Mailcode: Center | | | | | | [facility] and | | | | | | [facility], [facility] [address] | | | | | | [place], [place] | | | | | | [address] | | | | | | [phone] | | | +--------+ + + + [...]
--- OUTSIDE RECORDS SUMMARY | ~2019-09-03 | XMS | Encounter Summary ---
Demographics + + + | Address | [address] | | | [place] [address] | + + + | Home Phone [...] Organization | [facility] | | | and [...] Team Providers + +------+ + | Care Operations Clerk Name | Role | Phone | + +------+ + | Emily Green DO | PCP | | + +------+ + Encounter Details +--------+ + + + + | Date | Type | Department | Care Team | Description | +--------+ + + + + | 01/14/ | Hospital | [facility] | Emily Green, | | | 2016 | Encounter | [facility] | DO [address] [place] | | | | | MEDICAL CL[address] | [facility] [place] [address] | | | | | [address] [place], | [phone] | | | | | [place] [address] | | | | | | [phone] | | | +--------+ + + + [...]
--- OUTSIDE RECORDS SUMMARY | ~2019-09-03 | XMS | Encounter Summary ---
Demographics + + + | Address | [address] | | | [place] [address] | + + + | Home Phone [...] | Author | [facility] | | | and [place] | + + + | Organization | [facility] | | | and [...] Team Providers + +------+ + | Care Maintenance Apprentice Name | Role | Phone | + +------+ + | Emily Green DO | PCP | | + +------+ + Encounter Details +--------+ + + + + | Date | Type | Department | Care Team | Description | +--------+ + + + + | 02/17/ | [facility] | [facility] | Shirley Frankel, | | | 2016 | Encounter | [facility] | SENIOR ORACLE APPLICATIONS DEVELOPER [address] | | | | | MEDICAL CLINIC [address] | [address] [place] | | | | | [facility], | [address] | | | | | [place] [address] | | | | | | [phone] | | | +--------+ + + + [...]
--- OUTSIDE RECORDS SUMMARY | ~2019-09-03 | XMS | Encounter Summary ---
Demographics + + + | Address | [address] | | | [place] [address] | + + + | Home Phone [...] + | Organization | [facility] | | | and [...] Team Providers + +------+ + | Care Fountain Supervisor Name | Role | Phone | + +------+ + | Emily Green DO | PCP | | + +------+ + Encounter Details +--------+ + + + + | Date | Type | Department | Care Team | Description | +--------+ + + + + | 01/08/ | [facility] | [facility] | Shirley Frankel, | | | 2016 | Encounter | [facility] | HARDWARE MANAGER [address] | | | | | MEDICAL CLINIC [address] | [address] [place] | | | | | [address] [facility], | [address] | | | | | [place] [address] | | | | | | [phone] | | | +--------+ + + + [...]
--- OUTSIDE RECORDS SUMMARY | ~2019-09-03 | XMS | Encounter Summary ---
Demographics + + + | Address | [address] | | | [place] [address] | + + + | Home Phone | | + + + | Preferred Language | Unknown | + + + | Marital Status | Single | + + + | Christian Affiliation | 1013 | + + + | Race | Unknown | + + + | Ethnic Group | Unknown | + + + Author + + + | Author | [facility] | | | and [place] | + + + | Organization | [facility] | | | and [place] [...] Team Providers + +------+ + | Care Wharf Labourer Name | Role | Phone | + +------+ + PCP | Unavailable | + +------+ + Encounter Details +--------+ + + + + | Date | Type | Department | Care Team | Description | +--------+ + + + + | 03/21/ | Hospital | [facility] | | | | 2008 | Encounter | [facility] | | | | | | CONV DEPT [address] | | | | | [place], | | | | | | [place] [address] | | | | | | [phone] | | | +--------+ + + + [...]
--- OUTSIDE RECORDS SUMMARY | ~2019-09-03 | XMS | Encounter Summary ---
Demographics + + + | Address | [address] | | | [place] [address] | + + + | Home Phone [...] Author + + + | Author | [facility] | + + + | Organization | [facility] | + + + | Address | Unknown | + + + | Phone | Unavailable | + + + Support + + +---------+ + | Name | Relationship | Address | Phone | + + +---------+ + | Thalia Armani | ECON | Unknown | | + + +---------+ + Care Team Providers + +------+ + | Care Transport Medic Name | Role | Phone | + +------+ + | Meaghan Zhong MD | PCP | | + +------+ + Reason for Visit + + + | Reason | Comments | + + + | Medical Records | 11/21/2015 Dr. Norma Alicia | | Review | | + + + Encounter Details +--------+ + + + + | Date | Type | Department | Care Team | Description | +--------+ + + + + | 12/12/ | Abstract | Digestive Health | [address], | Medical Records | | 2016 | | Center at [facility] [address] | MD | Review (11/21/2015 | | | | ADONAY [place]one | | Dr. Green OV note - | | | | Mailcode: [place] | | Patel Maral) | | | | for Health and | | | | | | [facility], [place] [address] | | | | | | [place], [place] | | | | | | [address] | | | | | | [phone] | | | +--------+ + + + [...]
--- OUTSIDE RECORDS SUMMARY | ~2019-09-03 | XMS | Encounter Summary ---
Demographics + + + | Address | [address] | | | [place] [address] | + + + | Home Phone [...] Author | [facility] | + + + | Organization | [facility] | + + + | Address | Unknown | + + + | Phone | Unavailable | + + + Support + + +---------+ + | Name | Relationship | Address | Phone | + + +---------+ + | Thalia Armani | ECON | Unknown | | + + +---------+ + Care Team Providers + +------+ + | Care Foot Caster Name | Role | Phone | + +------+ + | Meaghan Zhong MD | PCP | | + +------+ + Reason for Visit + + + | Reason | Comments | + + + | Appointment Question | | + + + Encounter Details +--------+ + + + + | Date | Type | Department | Care Team | Description | +--------+ + + + + | 02/04/ | Telephone | Digestive Health | [address], | Appointment Question | | 2016 | | [place] [facility] [address] | MD | | | | | ADONAY [place] | | | | | | Mailcode: [place] | | | | | | [facility] and | | | | | | [facility], [facility] 2 | | | | | | [place], [place] | | | | | | [address] | | | | | | [phone] | | | +--------+ + + + [...]
--- OUTSIDE RECORDS SUMMARY | ~2019-09-03 | XMS | Encounter Summary ---
Demographics + + + | Address | [address] | | | [place] [address] | + + + | Home Phone | | + + + | Preferred Language | Unknown | + + + | Marital Status | Single | + + + | Jew Affiliation | 1013 | + + + | Race | Unknown | + + + | Ethnic Group | Unknown | + + + Author + + + | Author | [facility] [place] | | | and [place] | + + + | Organization | [facility] | [...] Team Providers + +------+ + | Care Retirement Assistant Name | Role | Phone | + +------+ + | Emily Green DO | PCP | | + +------+ + Encounter Details +--------+ + + + + | Date | Type | Department | Care Team | Description | +--------+ + + + + | 01/08/ | [facility] | [facility] | Shirley Frankel, | | | 2016 | Encounter | [facility] | TRESTLE BUILDER [address] | | | | | MEDICAL [facility] | [address] [facility] [place] | | | | | [facility], | [address] | | | | | [place] [address] | | | | | | [phone] | | | +--------+ + + + [...]
--- OUTSIDE RECORDS SUMMARY | ~2019-09-03 | XMS | Encounter Summary ---
Demographics + + + | Address | [address] | | | [place] [address] | + + + | Home Phone [...] | Organization | [facility] [place] | | | and [place] | [...] Team Providers + +------+ + | Care Washtub Worker Helper Name | Role | Phone | [...] [place] | | | | | | [address] | (Fax) | | | | | [phone] | | | +--------+ + + + [...]
--- OUTSIDE RECORDS SUMMARY | ~2019-09-03 | XMS | Encounter Summary ---
Demographics + + + | Address | [address] | | | [place] [address] | + + + | Home Phone | | + + + | Preferred Language | Unknown | + + + | Marital Status | Single | + + + | Confucianist Affiliation | 1013 | + + + | Race | Unknown | + + + | Ethnic Group | Unknown | + + + Author + + + | Author | [facility] | | | and [place] | + + + | Organization | [facility] | | | and [place] [...] Team Providers + +------+ + | Care Mutuel Machine Operator Name | Role | Phone [...] | | | | without | [place] [address] | [address] | | | | | complication | Phone: | KITTY Hartley | | | | | s ([facility]) | [phone] | [address] | | | | | Procedures | Fax: | Phone: | | | | | office visit | [phone] | [phone] | | | | | | | Fax: | | | | | | | [phone] | +--------+--------+ + + + + Encounter [...] | [address] | [place], [place] | abdominal location | | | | [address] [place], [place] | [address] | (Primary Dx); | | | | [address] | [phone] | Crohn's disease with | | | | [phone] | | complication, | | | | [...]
--- OUTSIDE RECORDS SUMMARY | ~2019-09-03 | XMS | Encounter Summary ---
Demographics + + + | Address | [address] | | | [place] [address] | + + + | Home Phone [...] | Organization | [facility] | [...] Team Providers + +------+ + | Care Environmental Web Crawler Name | Role | Phone | + +------+ + | Emily Green DO | PCP | | + +------+ + Encounter Details +--------+ + + + + | Date | Type | Department | Care Team | Description | +--------+ + + + + | 02/12/ | Orders Only | [facility] | Carmelo Patterson MD | Crohn's disease with | | 2016 | | GASTROENTEROLOGY | [address] | complication, | | | | [address] [facility] | [place], [place] | unspecified | | | | [address] [place], [place] | [address] | gastrointestinal | | | | [address] | [phone] | tract location | | | | [phone] | | ([facility]); Blood in | | | | | | stool; | | | | | | Non-intractable | | | | | | vomiting with | | | | | | nausea, vomiting of | | | | | | unspecified type; | | | | | | Opioid type | | | | | | dependence, | | | | | | continuous ([facility]) | +--------+ + + + + Social [...]
--- OUTSIDE RECORDS SUMMARY | ~2019-09-03 | XMS | Encounter Summary ---
Demographics + + + | Address | [address] | | | [place] [address] | + + + | Home Phone | | + + + | Preferred Language | Unknown | + + + | Marital Status | Single | + + + | Adventism Affiliation | 1013 | + + + | Race | Unknown | + + + | Ethnic Group | Unknown | + + + Author + + + | Author | [facility] [place] | | | and [place] | + + + | Organization | [facility] | | | and [...] Team Providers + +------+ + | Care Hr Recruiter Name | Role | Phone | + [...] Refill | | 2017 | | [facility] | DO [address] | | | | | MEDICAL CLIN[address] | [place] [address] | | | | | [address] [place], | [phone] | | | | | [place] [address] | | | | | | [phone] | | | +--------+--------+ + + + [...]
--- OUTSIDE RECORDS SUMMARY | ~2019-09-03 | XMS | Encounter Summary ---
Demographics + + + | Address | [address] | | | [place] [address] | + + + | Home Phone [...] + + + | Author | [facility] [place] | | | and [place] | + + + | Organization | [facility] | | | and [place] [...] Providers + +------+ + | Care Digital Account Manager Name | Role | Phone [...] | | | | | | | [place] | | | | | | | COLONOSCOPY, | | | | | | | DIAGNOSTIC | | | | | | | [place] | | | | | | | [...] + + | 04/14/ | Hospital | [facility] | Carmelo Patterson MD | Abdominal pain | | 2013 | Encounter | [facility] | [address] | (Primary Dx); | | | | [address] | [place] | Crohn's disease, | | | | [place] | [address] | unspecified | | | | [address] | [phone] | complication (HCC) | | | | [phone] | | | +--------+ + + + [...] the physician who did your procedure at [phone] if you have any questions or experience any of the following: Increasing abdominal pain, nausea, or vomiting. Chills and fever over 101F. New abdominal swelling or bloating. Signs of rectal bleeding (black or red stool. If you cannot get a hold of your physician, then call the [facility] [phone] . If necessary, report to the Emergency Department at [facility]. Quit smoking: If you smoke or [...] of this encounter Plan of Treatment + +------+--------+ [...] site | | | | | | ([facility]) | | + +--------+ + + + [...] | PROVATION | | 04/14/2014 11:49 AMMRN: [id number] #: [id number] of : | | | 1970Admit Type: AmbulatoryAge: 43Room: [facility] 02Gender: MaleNote | | | Status: FinalizedAttending MD: Carmelo Patterson, [facility]cedure: | | | Upper GI endoscopyIndications: Epigastric abdominal pain, | | | Nausea with vomitingProviders: Carmelo Patterson MD, | | | Monique Ling RN, Johana | | | ADITI Jerez, RUBY NORTON, Fundraiser, Ashwin Wright MD | | | (Anesthesia [...] the anesthesiologist and the | | | maintenance service technician in the pre-procedure area in the [...] On: 04/14/2014 11:49 AM | | | [facility], [address] [place] [address] | | | [address] | | | - Normal esophagus. | [...] On: 04/14/2014 11:49 AM | | | [facility], [address] [place] [address] | | | [address] | | + + -+ + + [...] Rachid Mendez Date: | PROVATION | | 04/14/2014 11:47 AMMRN: [id number] #: [id number] of : | | | 1970Admit Type: AmbulatoryAge: 43Room: [facility] 02Gender: MaleNote | | | Status: FinalizedAttending MD: Carmelo Patterson, [facility]cedure: | | | ColonoscopyIndications: Abdominal painProviders: | | | Carmelo Patterson MD, Monique Ling RN, Johana | | | ADITI Jerez, RUBY NORTON, Fundraiser, Ashwin | | | MD Adriana (Anesthesia [...] the anesthesiologist and the | | | maintenance service technician in the pre-procedure area in the [...] On: 04/14/2014 | | | 11:[address] [facility], [address] [facility], | | | [place] [address] | | | colon. No specimens collected. [...] On: 04/14/2014 11:47 AM | | | [facility], [address] [facility], [place], [place] | | | [address] | | + + -+ + + | Transcriptions | + + | Kitty Macdonaldsc - 04/14/2014 12:00 AM PDT | + [...] | | | 1 dose, AWILDA RENE: cabbarbarat | | | override, | | + [...] | | | | Starting Thu04/14/14 at 1400, For | | | | [...]
--- OUTSIDE RECORDS SUMMARY | ~2019-09-03 | XMS | Encounter Summary ---
Demographics + + + | Address | [address] | | | [place] [address] | + + + | Home Phone | | + + + | Preferred Language | Unknown | + + + | Marital Status | Single | + + + | Rastafari Affiliation | 1013 | + + + | Race | Unknown | + + + | Ethnic Group | Unknown | + + + Author + + + | Author | [facility] [place] | | | and [place] | + + + | Organization | [facility] | | | and [place] [...] Team Providers + +------+ + | Care Hand Salter Name | Role | Phone | + +------+ + | No, Physician | PCP | Unavailable | + +------+ + Encounter Details +--------+ + + + + | Date | Type | Department | Care Team | Description | +--------+ + + + + | 08/14/ | Hospital | [facility] | Emily Green, | | | 2014 | Encounter | [facility] | DO [address] | | | | | MEDICAL CLIN[address] | [place] [address] | | | | | [address] [place], | [phone] | | | | | [place] [address] | | | | | | [phone] | | | +--------+ + + + [...]
--- OUTSIDE RECORDS SUMMARY | ~2019-09-03 | XMS | Encounter Summary ---
Demographics + + + | Address | [address] | | | [place] [address] | + + + | Home Phone | | + + + | Preferred Language | Unknown | + + + | Marital Status | Single | + + + | Jewish Affiliation | CHR | + + + [...] Team Providers + +------+ + | Care Safety Deposit Supervisor Name | Role | Phone | + +------+ + | Meaghan Zhong MD | PCP | | + +------+ + Encounter Details +--------+ + + + + | Date | Type | Department | Care Team | Description | +--------+ + + + + | 04/28/ | Telephone | Digestive Health | [address], | | | 2016 | | [place] [facility] [address] | | | | | | ADON[place] | | | | | | Mailcode: [place] | | | | | | for Health and | | | | | | Healing, [address] | | | | | | [place], [place] | | | | | | [address] | | | | | | [phone] | | | +--------+ + + + [...]
--- OUTSIDE RECORDS SUMMARY | ~2019-09-03 | XMS | Encounter Summary ---
Demographics + + + | Address | [address] | | | [place] [address] | + + + | Home Phone | | + + + | Preferred Language | Unknown | + + + | Marital Status | Single | + + + | Confucianist Affiliation | 1013 | + + + | Race | Unknown | + + + | Ethnic Group | Unknown | + + + Author + + + | Author | [facility] | | | and [place] | + + + | Organization | [facility] | | | and [...] Team Providers + +------+ + | Care Greige Mender Name | Role | Phone | + +------+ + | No, Physician | PCP | Unavailable | + +------+ + Encounter Details +--------+ + + + + | Date | Type | Department | Care Team | Description | +--------+ + + + + | 02/13/ | Hospital | [place] [facility] | Emily Green, | | | 2014 | Encounter | [facility]PITAL [facility] | [address] | | | | | [address] [place] | [place] [address] | | | | | [place], [place] | [phone] | | | | | [address] | | | | | | [phone] | | | +--------+ + + + [...] | + +--------+ + + + | DRUGS OF ABUSE, | Routin | 02/13/2015 | | Results for this | | SCREEN, URINE | e | 4:42 PM | | procedure are in the | | | | PDT | | results section. | + +--------+ + + + | TSH | Routin | 02/13/2015 | | Results for this | | | e | 9:00 AM | | procedure are in the | | | | PDT | | results section. | + +--------+ + + + documented in this encounter Results Drugs of Abuse, Screen, Urine (02/13/2015 4:42 PM PDT) + +-------+ + + + | Component | Value | Ref Range | Performed | Pathologist | | | | | At | Signature | + +-------+ + + + | THC RESULT | POS | NEG ng/mL | EXTERNAL | | | | | | LAB | | + +-------+ + + + | Phencyclidi | NEG | NEG ng/mL | EXTERNAL | | | ne | | | LAB | | + +-------+ + + + | Cocaine | NEG | NEG ng/mL | EXTERNAL | | | | | | LAB | | + +-------+ + + + | Methampheta | NEG | NEG ng/mL | EXTERNAL | | | mine | | | LAB | | + +-------+ + + + | Opiates | POS | NEG ng/mL | EXTERNAL | | | | | | LAB | | + +-------+ + + + | Amphetamine | NEG | NEG ng/mL | EXTERNAL | | | s | | | LAB | | + +-------+ + + + | Benzodiazep | NEG | NEG ng/mL | EXTERNAL | | | jeferson | | | LAB | | | Screen, | | | | | | Urine | | | | | + +-------+ + + + | TCA Scrn | NEG | NEG ng/mL | EXTERNAL | | | | | | LAB | | + +-------+ + + + | Methadone | NEG | NEG ng/mL | EXTERNAL | | | Screen, | | | LAB | | | Urine | | | | | + +-------+ + + + | Barbiturate | NEG | NEG ng/mL | EXTERNAL | | | s | | | LAB | | + +-------+ + + + | Oxycodone | POS | NEG ng/mL | EXTERNAL | | | | | | LAB | | + +-------+ + + + | Propoxyphen | NEG | NEG ng/mL | EXTERNAL | | | e | | | LAB | | + +-------+ + + + | Buprenorphi | NEG | NEG ng/mL | EXTERNAL | | | ne | | | LAB | | + +-------+ + + + + + | Specimen | + + | | + + + +---------+ + + | Performing | Address | City/State/Zipcode | Phone Number | | Organization | | | | + +---------+ + + | EXTERNAL LAB | | | | + +---------+ + + TSH (02/13/2015 9:00 AM PDT) + +-------+ + + + | Component | Value | Ref Range | Performed | Pathologist | | | | | At | Signature | + +-------+ + + + | TSH | 0.02 | 0.40 - 4.68 | EXTERNAL | [...]
--- OUTSIDE RECORDS SUMMARY | ~2019-09-03 | XMS | Encounter Summary ---
Demographics + + + | Address | [address] | | | [place] [address] | + + + | Home Phone [...] + + + | Author | [facility] [place] | | | and [place] | + + + | Organization | [facility] | | | and [place] [...] Team Providers + +------+ + | Care Pottery Decorator Name | Role | Phone | + [...] | [address], [place] | [place] [address] | | | | | [address] | [phone] | | | | | [phone] | | | +--------+ + + + [...]
--- OUTSIDE RECORDS SUMMARY | ~2019-09-03 | XMS | Encounter Summary ---
Demographics + + + | Address | [address] | | | [place] [address] | + + + | Home Phone [...] Team Providers + +------+ + | Care Quality Measurement Specialist Name | Role | Phone | [...] | | 2015 | | Center at [facility] [address] | MD | Review | | | | ADONAY Boone | | (12/10-12/12/2015 St | | | | Mailcode: Center | | [facility]) | | | | for Health and | | | | | | [facility], [facility] [address] | | | | | | [place], [place] | | | | | | [address] | | | | | | [phone] | | | +--------+ + + + [...]
--- OUTSIDE RECORDS SUMMARY | ~2019-09-03 | XMS | Encounter Summary ---
Demographics + + + | Address | [address] | | | [place] [address] | + + + | Home Phone | | + + + | Preferred Language | Unknown | + + + | Marital Status | Single | + + + | Anabaptism Affiliation | CHR | + + + [...] Team Providers + +------+ + | Care Slitter And Cutter Operator Name | Role | Phone | [...] | | 2016 | | Center at [facility] [address] | | | | | | ADONAY Boone | | | | | | Mailcode: Center | | | | | | for Health and | | | | | | Healing, [address] | | | | | | [facility] [place] | | | | | | [address] | | | | | | [phone] | | | +--------+ + + + [...]
--- OUTSIDE RECORDS SUMMARY | ~2019-09-03 | XMS | Encounter Summary ---
Demographics + + + | Address | [address] | | | [place] [address] | + + + | Home Phone [...] + + | Author | [facility] [place] | | | and [place] | + + + | Organization | [facility] [...] Providers + +------+ + | Care Supervisor Compressed Yeast Name | Role | Phone | + [...] [address] [place] | [place] [address] | | | | | [place], [place] | [phone] | | | | | [address] | | | | | | [phone] | | | +--------+ + + + [...]
--- OUTSIDE RECORDS SUMMARY | ~2019-09-03 | XMS | Encounter Summary ---
Demographics + + + | Address | [address] | | | [place] [address] | + + + | Home Phone [...] Team Providers + +------+ + | Care Jute Bag Sewer Name | Role | Phone | + [...] Todd MD - 09/16/2007 12:00 AM PST [id number] | | [id number] [place] 829062 | | [id number] Date: 09/16/2007 Attending Surgeon: Bea Parks M.D. Car Escort(s): Hong Perez | | Jayda Todd Preoperative [...] #1 Maxon in an | | interrupted ahqzrl-pu-dhoft fashion. Then, we proceeded to close the [...] Hong Todd M.D. Bea Parks M.D. / [id number] / [id number] / | | [id number] / [id number] Electronically signed by Bea Parks 11-25-2007 | [...] #1 Maxon in an interrupted | | dqwlje-yc-nqouc fashion. Then, we proceeded to close the [...] | | | | | | | eBa Parks M.D. | | | | / | | [id number] / [id number] / [id number] / [id number] | | | | | | | | | | | | Electronically signed by Bea Parks 11-25-2007 03:42:19 PM | | | | | + + documented in this encounter Visit Diagnoses Not on filedocumented in this encounter"
--- OUTSIDE RECORDS SUMMARY | ~2019-09-03 | XMS | Encounter Summary ---
Demographics + + + | Address | [address] | | | [place] [address] | + + + | Home Phone [...] Team Providers + +------+ + | Care Professor Of Fine Art Name | Role | Phone | + [...] from Patient | | 2016 | | [place] [facility] [address] | | | | | | ADONAY [address] [place] | | | | | | Mailcode: [place] | | | | | | for Health and | | | | | | [facility], [facility] | | | | | | [place], [place] | | | | | | [address] | | | | | | [phone] | | | +--------+ + + + [...]
--- OUTSIDE RECORDS SUMMARY | ~2019-09-03 | XMS | Encounter Summary ---
Demographics + + + | Address | [address] | | | [place] [address] | + + + | Home Phone | | + + + | Preferred Language | Unknown | + + + | Marital Status | Single | + + + | Uatsdin Affiliation | CHR | + + + [...] Team Providers + +------+ + | Care Federal Aid Coordinator Name | Role | Phone | + [...] + + + + | 04/18/ | Sheet Metal Former | Digestive Health | [address], | Crohn's disease of | | 2015 | | [place] [facility] [address] | MD | large intestine with | | | | [address] | | other complication | | | | Mailcode: Center | | ([facility]) (Primary Dx) | | | | for Health and | | | | | | [facility], [facility] [address] | | | | | | [place], [place] | | | | | | [address] | | | | | | [phone] | | | +--------+ + + + [...]
--- OUTSIDE RECORDS SUMMARY | ~2019-09-03 | XMS | Encounter Summary ---
Demographics + + + | Address | [address] | | | [place] [address] | + + + | Home Phone [...] Team Providers + +------+ + | Care Shop Fitter Name | Role | Phone | + [...] | 2015 | on | Center at [facility] [address] | MD | (Multiple dates - | | | | [address] | | Ruth lAicia/St | | | | Mailcode: [place] | | Ravi'mohsen) | | | | for Health and | | | | | | [facility], [place] [address] | | | | | | [place], [place] | | | | | | [address] | | | | | | [phone] | | | +--------+ + + + [...] + | [facility] | | | [phone] | | [facility]OS[facility] | | | | + +---------+ + + | [facility] | | [place], [place] | [phone] | | HOSPITAL | | | | [...] + | [facility] | | | [phone] | | [facility]OSPITAL | | | | + +---------+ + + | [facility] | | [place] | [phone] | | HOSPITAL | | | | [...] + + | [facility] | [address] | [place] [address] | [phone] | | HOSPITAL | [address] | | [...] + + | [facility] | [address] | [place] [address] | [phone] | | HOSPITAL | 3290 | | [...] + + | [facility] | [address] | [place] [address] | [phone] | | HOSPITAL | 3290 | | [...] | [address] | [place] [address] | [phone] | | HOSPITAL | 3290 | | [...] + + | [facility] | [address] | [place] [address] | [phone] | | HOSPITAL | 3290 | | [...] + + | [facility] | [address] | [place] [address] | [phone] | | HOSPITAL | 3290 | | [...] + + | [facility] | [address] | [place] [address] | [phone] | | HOSPITAL | 3290 | | [...] + + | [facility] | [address] | [place] [address] | [phone] | | HOSPITAL | 3290 | | [...] + + | [facility] | [address] | [place] [address] | [phone] | | HOSPITAL | 3290 | | [...] + + | [facility] | [address] | [place] [address] | [phone] | | HOSPITAL | [address] | | [...] + + | [facility] | [address] | [place] [address] | [phone] | | HOSPITAL | [address] | | [...] + + | [facility] | [address] | [place] [address] | [phone] | | HOSPITAL | 3290 | | [...] + + | [facility] | [address] | [place] [address] | [phone] | | HOSPITAL | [address]290 | | [...] + + | [facility] | [address] | [place] [address] | [phone] | | HOSPITAL | [address] | | [...] + + | [facility] | [address] | [place] [address] | [phone] | | HOSPITAL | [address]290 | | [...] + + | [facility] | [address] | [place] [address] | [phone] | | HOSPITAL | [address] | | [...] | [address] | [place] [address] | [phone] | | HOSPITAL | [address] | | [...] + + | [facility] | [address] | [place] [address] | [phone] | | HOSPITAL | [address] | | [...] + + | [facility] | [address] | [place] [address] | [phone] | | HOSPITAL | [address] | | [...] + + | [facility] | [address] | [place] [address] | [phone] | | HOSPITAL | [address]290 | | [...] + + | [facility] | [address] | [place] [address] | [phone] | | HOSPITAL | [address]290 | | [...] + + | [facility] | [address] | [place] [address] | [phone] | | HOSPITAL | [address]290 | | [...] + + | [facility] | [address] | [place] [address] | [phone] | | HOSPITAL | [address]290 | | [...] + + | [facility] | [address] | [place] [address] | [phone] | | HOSPITAL | 3290 | | [...] + + | [facility] | [address] | [place] [address] | [phone] | | HOSPITAL | [address] | | [...] | [address] | [place] [address] | [phone] | | HOSPITAL | 3290 | | | + + + + + documented in this encounter Visit Diagnoses Not on filedocumented in this encounter"
--- OUTSIDE RECORDS SUMMARY | ~2019-09-03 | XMS | Encounter Summary ---
Demographics + + + | Address | [address] | | | [place] [address] | + + + | Home Phone [...] Author | [facility] | | | and [place] | + + + | Organization | [facility] [...] Team Providers + +------+ + | Care Statistical Methods Professor Name | Role | Phone | [...] | | | | | intestine | [facility] | | | | | | with | [place] | | | | | | unspecified | [address] | | | | | | complication [...] | | | | | unspecified | [address] | | | | | | complication [...] + + | 05/09/ | Hospital | [facility] | [address], | Crohn's disease of | | 2015 | Encounter | [facility] [address] | | large intestine with | | | | [place], | | unspecified | | | | [place] [address] | | complications (HCC) | | | | [phone] | | | +--------+ + + + [...]
--- OUTSIDE RECORDS SUMMARY | ~2019-09-03 | XMS | Encounter Summary ---
Demographics + + + | Address | [address] | | | [place] [address] | + + + | Home Phone [...] Organization | [facility] | | | and [...] Team Providers + +------+ + | Care Video Production Engineer Name | Role | Phone | + +------+ + | Emily Green DO | PCP | | + +------+ + Encounter Details +--------+ + + + + | Date | Type | Department | Care Team | Description | +--------+ + + + + | 02/12/ | Orders Only | [facility] | Carmelo Patterson MD | Crohn's disease with | | 2016 | | GASTROENTEROLOGY | [address] | complication, | | | | [address] [facility] | [place], [place] | unspecified | | | | [address] [place], [place] | [address] | gastrointestinal | | | | [address] | [phone] | tract location | | | | [phone] | | ([facility]); Blood in | | | | [...] | | | | continuous ([facility]) | +--------+ + + + + [...]
--- OUTSIDE RECORDS SUMMARY | ~2019-09-03 | XMS | Encounter Summary ---
Demographics + + + | Address | [address] | | | [place] [address] | + + + | Home Phone | | + + + | Preferred Language | Unknown | + + + | Marital Status | Single | + + + | Sabianism Affiliation | 1013 | + + + | Race | Unknown | + + + | Ethnic Group | Unknown | + + + Author + + + | Author | [facility] | | | and [place] | + + + | Organization | [facility] | [...] Providers + +------+ + | Care Table Hand Name | Role | Phone | + +------+ + | No, Physician | PCP | Unavailable | + +------+ + Encounter Details +--------+ + + + + | Date | Type | Department | Care Team | Description | +--------+ + + + + | 10/24/ | Hospital | [facility] | Emily Green, | | | 2014 | Encounter | HOSPITAL LABORATORY | DO [address] | | | | | [address] | [place] [address] | | | | | [place], [place] | [phone] | | | | | [address] | | | | | | [phone] | | | +--------+ + + + [...] + | CBC W/AUTO | Routin | 10/24/2014 | | Results [...] + documented in this encounter Results TSH (10/24/2014 4:05 PM PST) + +-------+ + [...] +---------+ + + CBC w/ Auto Differential (10/24/2014 4:05 PM PST) + +-------+ + + + | Component | Value | Ref Range | Performed | Pathologist | | | | | At | Signature | + +-------+ + + + | WBC | 9.8 | 4.6 - 10.5 | EXTERNAL | | | | | 1000/mm3 | LAB | | + +-------+ + + + | RBC | 4.45 | 4.36 - 5.83 | EXTERNAL | | | | | mil/mm3 | LAB | | + +-------+ + + + | HGB, | 15.2 | 13.1 - 17.4 | EXTERNAL | | | External | | g/dL | LAB | | + +-------+ + + + | HCT, | 43.2 | 39.0 - 51.9 % | EXTERNAL | | | External | | | LAB | | + +-------+ + + + | MCV | 97 | 82 - 96 fl | EXTERNAL | | | | | | LAB | | + +-------+ + + + | MCH | 34.2 | 27.7 - 32.3 pg | EXTERNAL | | | | | | LAB | | + +-------+ + + + | MCHC | 35.2 | 32.0 - 36.9 | EXTERNAL | | | | | g/dL | LAB | | + +-------+ + + + | RDW-CV | 12.6 | <=17.0 % | EXTERNAL | | | | | | LAB | | + +-------+ + + + | Platelet | 259 | 150 - 450 | EXTERNAL | | | Count | | 1000/mm3 | LAB | | | Plasma | | | | | + +-------+ + + + | MPV | 8.8 | 9.4 - 12.4 FL | EXTERNAL | | | | | | LAB | | + +-------+ + + + | % Segmented | 64.3 | 42.0 - 76.0 % | EXTERNAL | | | | | | LAB | | | Neutrophils | | | | | + +-------+ + + + | LYMPH % | 31.1 | 20.0 - 40.0 % | EXTERNAL | | | | | | LAB | | + +-------+ + + + | % Monocytes | 4.6 | <=12.0 % | EXTERNAL | | | | | | LAB | | + +-------+ + + + | Absolute | 6.3 | 2.80 - 7.70 | EXTERNAL | | | Neutrophils | | 1000/mm3 | LAB | | + +-------+ + + + | Absolute | 3 | 1.20 - 3.30 | EXTERNAL | | | Lymphocytes | | 1000/mm3 | LAB | | + +-------+ + + + | Absolute | 0.5 | <=1.26 1000/mm3 | EXTERNAL | | [...]
--- OUTSIDE RECORDS SUMMARY | ~2019-09-03 | XMS | Encounter Summary ---
Demographics + + + | Address | [address] | | | [place] [address] | + + + | Home Phone [...] Organization | [facility] | | [...] Team Providers + +------+ + | Care Finishing Powder Press Operator Name | Role | Phone [...] | | | | CENTER [address] | [place], [place] | Epigastric pain | | | | [place], [place] | [address] | | | | | [address] | | | | | | [phone] | | | +--------+ + + + [...] + documented in this encounter Discharge Instructions Mabel Wills MD - 04/14/2014Home and rest Clear liquids [...] 2 puffs inhaled | | 0 | 09/14/20 | | | HFA) 90 mcg/puff | [...] + | [facility] | [address] | [place], [place] | [phone] | | [facility] | | [address] | | | - LABORATORY | | | | + + + + + | [facility] | [address] | [place] | | | [facility] | | [address] | | | - LABORATORY | | [...] [facility] | | | | | | [facility] | | | | | | [...] | | | FILTRATION | mL/min/1.73m2 | [facility] | | | [facility]INCENTIAN | RATE,ESTIMATED | | MEDICAL | | | | mL/min/1.52m7Yexn than | | CENTER - | | [...] | | | | | mg/dL | [facility] | | | | | | [...] + | [facility] | [address] | [place] | [phone] | | [facility] | | [address] | | | - LABORATORY | | | | + + + + + | [facility] | [address] | [place] | | | [facility] | | [address] | | | - LABORATORY | | [...] | Monocytes | | K/uL | [facility] | | | | | | MEDICAL | | | | | | CENTER - | | | | | | LABORATORY | | + + + + + + | Absolute | 0.20 | 0.00 - 0.40 | [facility] | | | Eosinophils | | K/uL | [facility] | | | | | | MEDICAL | | | | | | CENTER - | | | | | | LABORATORY | | + + + + + + | Absolute | 0.10 | 0.00 - 0.10 | [facility] | | | Basophils | | K/uL | [facility] | | | | [...] + | [facility] | [address] | [place], [place] | [phone] | | [facility] | | [address] | | | - LABORATORY | | | | + + + + + | [facility] | [address] | [place], [place] | | | [facility] | | [address] | | | - LABORATORY | | [...] the | | abdomen and pelvis most [id number].PROTOCOL: Axial images of the abdomen and | [...] + | MISCELLANEOUS LAB | | | [phone] | + +---------+ + + | MISCELANIOUS LAB | | | [phone] | + +---------+ + + documented in [...] | | | | | Intravenous, ONCE, 04/14/14 at | | PM PDT | | [...]
--- OUTSIDE RECORDS SUMMARY | ~2019-09-03 | XMS | Encounter Summary ---
Demographics + + + | Address | [address] | | | [place] [address] | + + + | Home Phone [...] | Organization | [facility] | | | and [...] Team Providers + +------+ + | Care Shell Trim Operator Name | Role | Phone | [...] | [address], [place] | [place] [address] | | | | | [address] | [phone] | | | | | [phone] | | | +--------+ + + + [...]
--- OUTSIDE RECORDS SUMMARY | ~2019-09-03 | XMS | Encounter Summary ---
Demographics + + + | Address | [address] | | | [place] [address] | + + + | Home Phone | | + + + | Preferred Language | Unknown | + + + | Marital Status | Single | + + + | Hoahaoism Affiliation | 1013 | + + + | Race | Unknown | + + + | Ethnic Group | Unknown | + + + Author + + + | Author | [facility] | | | and [place] | + + + | Organization | [facility] [...] Team Providers + +------+ + | Care Butane Compressor Operator Name | Role | Phone | [...] 2013 | | GASTROENTEROLOGY | [address] | | | | | [address] [place] | [address] [place], | | | | | [address] [place], [place] | [place] [address] | | | | | [address] | [phone] | | | | | [phone] | | | +--------+ + + + [...]
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
--- OUTSIDE RECORDS SUMMARY | ~2019-09-03 | XMS | Encounter Summary ---
Demographics + + + | Address | [address] | | | [place] [address] | + + + | Home Phone [...] | [facility] [place] | | | and [...] Team Providers + +------+ + | Care Icicle Machine Operator Name | Role | Phone [...] [place] | | | | | | [address] | (Fax) | | | | | [phone] | | | +--------+ + + + [...]
--- OUTSIDE RECORDS SUMMARY | ~2019-09-03 | XMS | Encounter Summary ---
Demographics + + + | Address | [address] | | | [place] [address] | + + + | Home Phone | | + + + | Preferred Language | Unknown | + + + | Marital Status | Single | + + + | Latter-Day Affiliation | 1013 | + + + | Race | Unknown | + + + | Ethnic Group | Unknown | + + + Author + + + | Author | [facility] [place] | | | and [place] | + + + | Organization | [facility] | | | [...] Team Providers + +------+ + | Care Information Technology Account Manager Name | Role | Phone [...] Encounter | HOSPITAL EMERGENCY | MD [address] | | | | | CENTER [address] | [place] | | | | | [address] [place], [place] | [place] [address] | | | | | [address] | [phone] | | | | | [phone] | | | +--------+ + + + [...]
--- OUTSIDE RECORDS SUMMARY | ~2019-09-03 | XMS | Encounter Summary ---
Demographics + + + | Address | [address] | | | [place] [address] | + + + | Home Phone | | + + + | Preferred Language | Unknown | + + + | Marital Status | Single | + + + | Congregational Affiliation | CHR | + + + | Race | White | + + + | Ethnic Group | Not or | + + + Author + + + | Author | [facility] | + + + | Organization | [facility] | + + + | Address | Unknown | + + + | Phone | Unavailable | + + + Support + + +---------+ + | Name | Relationship | Address | Phone | + + +---------+ + | Thalia Armani | ECON | Unknown | | + + +---------+ + Care Team Providers + +------+ + | Care Sales Training Coordinator Name | Role | Phone | [...] Medical Records | | 2015 | | [place] [address] | | Review | | | | [place] | | | | | | Mailcode: [place] | | | | | | [facility] and | | | | | | [facility] 2 | | | | | | [place], [place] | | | | | | [address] | | | | | | [phone] | | | +--------+ + + + [...]
--- OUTSIDE RECORDS SUMMARY | ~2019-09-03 | XMS | Encounter Summary ---
Demographics + + + | Address | [address] | | | [place] [address] | + + + | Home Phone | | + + + | Preferred Language | Unknown | + + + | Marital Status | Single | + + + | Judaism Affiliation | CHR | + + + [...] Team Providers + +------+ + | Care Asp Net Developer Name | Role | Phone | + +------+ + | Meaghan Zhong MD | PCP | | + +------+ + Reason for Visit + + + | Reason | Comments | + + + | Medical Records | 04/09/2016 EGD/Colonoscopy reports and Pathology report - | | Review | Dawesal[facility] Watson | + + + Encounter Details +--------+ + + + + | Date | Type | Department | Care Team | Description | +--------+ + + + + | 04/18/ | Abstract | Digestive Health | [address], | Medical Records | | 2016 | | [place] at [facility] [address] | MD | Review (04/09/2016 | | | | [place] | | EGD/Colonoscopy | | | | Mailcode: Center | | reports and | | | | for Health and | | Pathology report - | | | | [facility] 2 | | [facility] | | | | [place], [place] | | [place] | | | | [address] | | | | | | [phone] | | | +--------+ + + + [...]
--- OUTSIDE RECORDS SUMMARY | ~2019-09-03 | XMS | Encounter Summary ---
Demographics + + + | Address | [address] | | | [place] [address] | + + + | Home Phone [...] | [facility] [place] | | [...] Providers + +------+ + | Care Packaging Machine Supplies Distributor Name | Role | Phone | + [...] | | | disease | | [address] | | | | | without | | [place], | | | | | complication | | [place] [address] | | | | | , | | Phone: | | | | | unspecified | | [phone] | | | | | gastrointest | | Fax: | | | | | inal tract | | [phone] | | | | | location | [...] + | 04/09/ | Anesthesia | [facility] | Nima Lynn MD | | | 2016 | Event | MED CTR MP INTRA OP | [address] | | | | | [address] | [place] | | | | | [place] | [address] | | | | | [address] | | | | | | [phone] | | | +--------+ + + + [...] 04/09/16 1155 by | | eral | [id number] catheter system; | AGUSTIN SCHULTE | Radha [...]
--- OUTSIDE RECORDS SUMMARY | ~2019-09-03 | XMS | Encounter Summary ---
Demographics + + + | Address | [address] | | | [place] [address] | + + + | Home Phone [...] | Organization | [facility] [place] | | | [...] Team Providers + +------+ + | Care Scuba Diving Teacher Name | Role | Phone | + +------+ + | Emily Green DO | PCP | | + +------+ + Encounter Details +--------+ + + + + | Date | Type | Department | Care Team | Description | +--------+ + + + + | 01/16/ | [facility] | [facility] | Shirley [place], | | | 2016 | Encounter | [facility] | ELECTRICAL MANAGER [address] | | | | | MEDICAL CLINIC [address] | [address] [facility] [place] | | | | | [facility], | [address] | | | | | [place] [address] | | | | | | [phone] | | | +--------+ + + + [...]
--- OUTSIDE RECORDS SUMMARY | ~2019-09-03 | XMS | Encounter Summary ---
Demographics + + + | Address | [address] | | | [place] [address] | + + + | Home Phone [...] Organization | [facility] [place] | [...] Team Providers + +------+ + | Care Piano Regulator Name | Role | Phone | + [...] | | | | [address] [facility] [facility] | [place], [place] | | | | | [address] | [address] | | | | | [address] | [phone] | | | | | [phone] | | | +--------+ + + + [...] [address] | [place] | [phone] | | [facility] | | [address] | | | - LABORATORY | | [...] Comment | + + | [facility] | + + + +---------+ + + [...] Comment | + + | [facility] | + + + +---------+ + + [...] Comment | + + | [facility] | + + + +---------+ + + [...] Comment | + + | [facility] | + + + +---------+ + + [...] Comment | + + | [facility] | + + + +---------+ + + [...] Agency Comment | + + | [facility] | + + + +---------+ + + | Performing | Address | City/State/Zipcode | Phone Number | | Organization | | | | + +---------+ + + | EXTERNAL LAB | | | | + +---------+ + + documented in this encounter Visit Diagnoses Not on filedocumented in this encounter"
--- OUTSIDE RECORDS SUMMARY | ~2019-09-03 | XMS | Encounter Summary ---
Demographics + + + | Address | [address] | | | [place] [address] | + + + | Home Phone [...] Author | [facility] [place] | | | and [place] | + + + | Organization | [facility] [place] | | [...] Team Providers + +------+ + | Care Insurance Counsel Name | Role | Phone | + +------+ + PCP | Unavailable | + +------+ + Encounter Details +--------+ + + + + | Date | Type | Department | Care Team | Description | +--------+ + + + + | 12/01/ | Hospital | [facility] | [facility] | | | 2010 | Encounter | HOSPITAL EMERGENCY | MD [address] | | | | | CENTER [address] | [facility] | | | | | [address] [place], [place] | [employer] [place] [address] | | | | | [address] | [phone] | | | | | [phone] | | | +--------+ + + + [...]
--- OUTSIDE RECORDS SUMMARY | ~2019-09-03 | XMS | Encounter Summary ---
Demographics + + + | Address | [address] | | | [place] [address] | + + + | Home Phone | | + + + | Preferred Language | Unknown | + + + | Marital Status | Single | + + + | Scientologist Affiliation | CHR | + + + [...] Providers + +------+ + | Care Senior Technical Analyst Name | Role | Phone | [...] | | 2014 | | Center at [facility] [address] | Gastroenterology | Gastroenterology | | | | [place] | | | | | | Mailcode: Center | | | | | | [facility] and | | | | | | [facility], [facility] | | | | | | [place], [place] | | | | | | [address] | | | | | | [phone] | | | +--------+ + + + [...]
--- OUTSIDE RECORDS SUMMARY | ~2019-09-03 | XMS | Encounter Summary ---
Demographics + + + | Address | [address] | | | [place] [address] | + + + | Home Phone [...] Team Providers + +------+ + | Care Unit Receptionist Name | Role | Phone | + [...] | Center at [facility] [address] | | | | | | [place] | | | | | | Mailcode: Center | | | | | | for Health and | | | | | | Healing, Building [address] | | | | | | [facility] [place] | | | | | | [address] | | | | | | [phone] | | | +--------+ + + + [...]
--- OUTSIDE RECORDS SUMMARY | ~2019-09-03 | XMS | Encounter Summary ---
Demographics + + + | Address | [address] | | | [place] [address] | + + + | Home Phone | | + + + | Preferred Language | Unknown | + + + | Marital Status | Single | + + + | Orthodoxy Affiliation | 1013 | + + + | Race | Unknown | + + + | Ethnic Group | Unknown | + + + Author + + + | Author | [facility] [place] | | | and [place] | + + + | Organization | [facility] [place] | | | and [place] [...] Team Providers + +------+ + | Care Rip Tailer Name | Role | Phone | + [...] [place] | | | | | | [address] | | | | | | [phone] | | | +--------+ + + + [...]
--- OUTSIDE RECORDS SUMMARY | ~2019-09-03 | XMS | Encounter Summary ---
Demographics + + + | Address | [address] | | | [place] [address] | + + + | Home Phone [...] Team Providers + +------+ + | Care Automotive Professional Name | Role | Phone | + [...] + + + + | 04/18/ | Food Service Worker | Digestive Health | [address], | Crohn's disease of | | 2015 | | [place] at [facility] [address] | MD | large intestine with | | | | [address] | | other complication | | | | Mailcode: Center | | ([facility]) (Primary Dx) | | | | for Health and | | | | | | [facility], [facility] 2 | | | | | | [place], [place] | | | | | | [address] | | | | | | [phone] | | | +--------+ + + + [...]
--- OUTSIDE RECORDS SUMMARY | ~2019-09-03 | XMS | Encounter Summary ---
Demographics + + + | Address | [address] | | | [place] [address] | + + + | Home Phone [...] Team Providers + +------+ + | Care Ward Secretary Name | Role | Phone | + +------+ + | Meaghan Zhong MD | PCP | | + +------+ + Encounter Details +--------+ + + + + | Date | Type | Department | Care Team | Description | +--------+ + + + + | 04/28/ | Telephone | Digestive Health | [address], | | | 2016 | | [place] at [facility] [address] | | | | | | [place] | | | | | | Mailcode: [place] | | | | | | for Health and | | | | | | Healing, Building [address] | | | | | | [place], [place] | | | | | | [address] | | | | | | [phone] | | | +--------+ + + + [...]
--- OUTSIDE RECORDS SUMMARY | ~2019-09-03 | XMS | Encounter Summary ---
Demographics + + + | Address | [address] | | | [place] [address] | + + + | Home Phone [...] Providers + +------+ + | Care Director Plans Name | Role | Phone | + +------+ + | Meaghan Zhong MD | PCP | | + +------+ + Reason for Visit + + + | Reason | Comments | + + + | Refill Request | | + + + Encounter Details +--------+--------+ + + + | Date | Type | Department | Care Team | Description | +--------+--------+ + + + | 08/18/ | Refill | Digestive Health | [address], | Refill Request | | 2015 | | [place] at [facility] [address] | | | | | | [address] | | | | | | Mailcode: [place] | | | | | | for Health and | | | | | | Healing, Building [address] | | | | | | [place], [place] | | | | | | [address] | | | | | | [phone] | | | +--------+--------+ + + + [...]
--- OUTSIDE RECORDS SUMMARY | ~2019-09-03 | XMS | Encounter Summary ---
Demographics + + + | Address | [address] | | | [place] [address] | + + + | Home Phone [...] | Located Within [facility] | | | and [place] [...] Team Providers + +------+ + | Care Water/Wastewater Project Manager Name | Role | Phone | + +------+ + | Emily Green DO | PCP | | + +------+ + Encounter Details +--------+ + + + + | Date | Type | Department | Care Team | Description | +--------+ + + + + | 12/10/ | Hospital | [facility] | [place], | | | 2017 | Encounter | [facility] | DO [address] | | | | | MEDICAL CLINIC [address] | [place] [address] | | | | | [address] [place], | [phone] | | | | | [place] [address] | | | | | | [phone] | | | +--------+ + + + [...]
--- OUTSIDE RECORDS SUMMARY | ~2019-09-03 | XMS | Encounter Summary ---
Demographics + + + | Address | [address] | | | [place] [address] | + + + | Home Phone [...] + | Organization | [facility] [place] | | | and [place] [...] Team Providers + +------+ + | Care Fire And Safety Helper Name | Role | Phone | [...] | | | SUNSRINIVASA MADSEN | [address] [facility], | | | | | [facility], [place] | [place] [address] | | | | | [address] | [phone] | | | | | [phone] | | | +--------+ + + + [...]
--- OUTSIDE RECORDS SUMMARY | ~2019-09-03 | XMS | Encounter Summary ---
Demographics + + + | Address | [address] | | | [place] [address] | + + + | Home Phone | | + + + | Preferred Language | Unknown | + + + | Marital Status | Single | + + + | Sikhism Affiliation | CHR | + + + [...] Team Providers + +------+ + | Care Territory Sales Manager Name | Role | Phone | [...] | Other | | 2015 | | [place] at [facility] [address] | | | | | | [address] | | | | | | Mailcode: Center | | | | | | for Health and | | | | | | [facility], [address] | | | | | | [place], [place] | | | | | | [address] | | | | | | [phone] | | | +--------+ + + + [...]
--- OUTSIDE RECORDS SUMMARY | ~2019-09-03 | XMS | Encounter Summary ---
Demographics + + + | Address | [address] | | | [place] [address] | + + + | Home Phone [...] Team Providers + +------+ + | Care Application Development Consultant Name | Role | Phone | [...] from Patient | | 2017 | | [place] at [facility] [address] | | | | | | [address] | | | | | | Mailcode: [place] | | | | | | for Health and | | | | | | [facility] 2 | | | | | | [place], [place] | | | | | | [address] | | | | | | [phone] | | | +--------+ + + + [...]
--- OUTSIDE RECORDS SUMMARY | ~2019-09-03 | XMS | Encounter Summary ---
Demographics + + + | Address | [address] | | | [place] [address] | + + + | Home Phone [...] | Organization | [facility] [...] Team Providers + +------+ + | Care Accounting Administrative Assistant Name | Role | Phone | + +------+ + | No, Physician | PCP | Unavailable | + +------+ + Encounter Details +--------+ + + + + | Date | Type | Department | Care Team | Description | +--------+ + + + + | 08/14/ | Hospital | [facility] | Emily Green, | | | 2013 | Encounter | [facility] | DO [address] [place] | | | | | MEDICAL CLINIC [address] | [place] [address] | | | | | [address] [place], | [phone] | | | | | [place] [address] | | | | | | [phone] | | | +--------+ + + + [...]
--- OUTSIDE RECORDS SUMMARY | ~2019-09-03 | XMS | Encounter Summary ---
Demographics + + + | Address | [address] | | | [place] [address] | + + + | Home Phone [...] Organization | [facility] [place] | [...] Team Providers + +------+ + | Care Knitting Machine Operator Automatic Name | Role | Phone | + +------+ + | Emily Green DO | PCP | | + +------+ + Encounter Details +--------+ + + + + | Date | Type | Department | Care Team | Description | +--------+ + + + + | 02/17/ | [facility] | [facility] | Shirley Frankel, | | | 2016 | Encounter | [facility] | MARINE ARCHITECT [address] | | | | | MEDICAL CLINIC [address] | [address] [facility] [place] | | | | | [address] [facility], | [address] | | | | | [place] [address] | | | | | | [phone] | | | +--------+ + + + [...]
--- OUTSIDE RECORDS SUMMARY | ~2019-09-03 | XMS | Encounter Summary ---
Demographics + + + | Address | [address] | | | [place] [address] | + + + | Home Phone [...] | Author | [facility] [place] | | | and [place] | + + + | Organization | [facility] | | | and [...] Providers + +------+ + | Care Records Technician Name | Role | Phone | [...] + + | 03/10/ | Telephone | [facility] | [place] Patterson MD | Appointment (r/s | | 2016 | | GASTROENTEROLOGY | [address] | procedure ) | | | | [address] [facility] | [place], [place] | | | | | [address] [place], [place] | [address] | | | | | [address] | [phone] | | | | | [phone] | | | +--------+ + + + [...]
--- OUTSIDE RECORDS SUMMARY | ~2019-09-03 | XMS | Encounter Summary ---
Demographics + + + | Address | [address] | | | [place] [address] | + + + | Home Phone [...] Organization | [facility] [place] | [...] Team Providers + +------+ + | Care Ballet Company Member Name | Role | Phone | + [...] Encounter | HOSPITAL EMERGENCY | MD [address] | | | | | CENTER [address] | [address]iela Juarez | | | | | [address] [place] | [place] [address] | | | | | [address] | [phone] | | | | | [phone] | | | +--------+ + + + [...]
--- OUTSIDE RECORDS SUMMARY | ~2019-09-03 | XMS | Encounter Summary ---
Demographics + + + | Address | [address] | | | [place] [address] | + + + | Home Phone [...] Team Providers + +------+ + | Care Broach Trouble Shooter Name | Role | Phone | + [...] from Patient | | 2017 | | [place] at [facility] [address] | | | | | | [address] | | | | | | Mailcode: [place] | | | | | | for Health and | | | | | | [facility] 2 | | | | | | [place], [place] | | | | | | [address] | | | | | | [phone] | | | +--------+ + + + [...]
--- OUTSIDE RECORDS SUMMARY | ~2019-09-03 | XMS | Encounter Summary ---
Demographics + + + | Address | [address] | | | [place] [address] | + + + | Home Phone [...] | Organization | [facility] [place] | [...] Team Providers + +------+ + | Care Spa Host Name | Role | Phone | + [...] 2012 | | GASTROENTEROLOGY | [address] | care (Primary Dx) | | | | [address] | [address] [place], | | | | | [address] [place] | [place] [address] | | | | | [address] | [phone] | | | | | [phone] | | | +--------+ + + + [...] Primary Routine general medical examination at a [facility] | | care facility | + + documented in this encounter"
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
--- OUTSIDE RECORDS SUMMARY | ~2019-09-03 | XMS | Encounter Summary ---
Demographics + + + | Address | [address] | | | [place] [address] | + + + | Home Phone [...] Organization | [facility] [...] Team Providers + +------+ + | Care Getter Filler Name | Role | Phone | + +------+ + | No, Physician | PCP | Unavailable | + +------+ + Encounter Details +--------+ + + + + | Date | Type | Department | Care Team | Description | +--------+ + + + + | 12/25/ | [facility] | [place] | Clement Ventura | | | 2014 | Encounter | HOSPITAL EMERGENCY | MD [address] | | | | | C[address] | [facility] | | | | | [address] [place], [place] | [place] [address] | | | | | [address] | [phone] | | | | | [phone] | | | +--------+ + + + [...]
--- OUTSIDE RECORDS SUMMARY | ~2019-09-03 | XMS | Encounter Summary ---
Demographics + + + | Address | [address] | | | [place] [address] | + + + | Home Phone [...] + | Organization | [facility] [place] | [...] Team Providers + +------+ + | Care Adzing And Boring Machine Feeder Name | Role | Phone | [...] [place] | | | | | | [address] | (Fax) | | | | | [phone] | | | +--------+ + + + [...]
--- OUTSIDE RECORDS SUMMARY | ~2019-09-03 | XMS | Encounter Summary ---
Demographics + + + | Address | [address] | | | [place] [address] | + + + | Home Phone [...] + | Organization | [facility] | | [...] Team Providers + +------+ + | Care Implant Polisher Name | Role | Phone | [...] | | | | | complication | [facility] [place] | [place] [address] | | | | | , | [address] | Phone: | | | | | unspecified | Phone: | [phone] | | | | | gastrointest | [phone] | Fax: | | | | | inal tract | Fax: | [phone] | | | | | location | [phone] | | | | | | (HCC) [...] | | | | | | | AL | | | | | | | COLONOSCOPY | | | | | | | FLX DX | | | | | | | W/COLLJ SPEC | | | | | | | WHEN PFRMD | | | | | | | AL | | | | | | | COLONOSCOPY | | | | | | | W/BIOPSY | | | | | | | SINGLE/MULTI | | | | | | | PLE AL | | | | | | | COLSC FLX | | | | | | | W/RMVL OF | | | | | | | TUMOR POLYP | | | | | | | LESION SNARE | | | | | | | TQ AL | | | | | | | ESOPHAGOGAST | | | | | | | RODUODENOSCO | | | | | | | PY TRANSORAL | | | | | | | DIAGNOSTIC | | | | | | | AL EDG | | | | | | | TRANSORAL | | | | | | | BIOPSY | | | | | | | SINGLE/MULTI | | | | | | | PLE AL | | | | | | | ANESTH,INTES | | | | | | | MARLIN,SCOPE,L | | | | | | | OW AL | | | | | | | ANESTH,UGI | | | | | | | ENDOSCOPY | | | +--------+ + + + + + Encounter Details +--------+ + + + + | Date | Type | Department | Care Team | Description | +--------+ + + + + | 01/21/ | Orders Only | [facility] | Carmelo Patterson MD | Crohn's disease with | | 2015 | | GASTROENTEROLOGY | [address] [facility] | complication, | | | | [address] [facility] | [place], [place] | unspecified | | | | [address] [address] | [address] | gastrointestinal | | | | [address] | [phone] | tract location (HCC) | | | | [phone] | | (Primary Dx); Blood | | [...] Dr. Patterson. Elect ronically signed by Saritha Hicmkan RN at 01/22/2016 5:25 PM PDTdocumented in [...]
--- OUTSIDE RECORDS SUMMARY | ~2019-09-03 | XMS | Encounter Summary ---
Demographics + + + | Address | [address] | | | [place] [address] | + + + | Home Phone [...] Organization | [facility] | | | and [...] Team Providers + +------+ + | Care Rod Mill Tender Name | Role | Phone | + +------+ + | No, Physician | PCP | Unavailable | + +------+ + Encounter Details +--------+ + + + + | Date | Type | Department | Care Team | Description | +--------+ + + + + | 09/13/ | Hospital | [facility] | [place], | | | 2014 | Encounter | [facility] | DO [address] | | | | | MEDICAL CLINIC [address] | [facility] [address] | | | | | [address] [place], | [phone] | | | | | [place] [address] | | | | | | [phone] | | | +--------+ + + + [...]
--- OUTSIDE RECORDS SUMMARY | ~2019-09-03 | XMS | Encounter Summary ---
Demographics + + + | Address | [address] | | | [place] [address] | + + + | Home Phone [...] + + + | Author | [facility] [place] | | | and [place] | + + + | Organization | [facility] | | | and [...] Team Providers + +------+ + | Care Appliance Repairer Name | Role | Phone | + +------+ + | No, Physician | PCP | Unavailable | + +------+ + Encounter Details +--------+ + + + + | Date | Type | Department | Care Team | Description | +--------+ + + + + | 11/18/ | Emergency | [facility] | Levi Hoffmann, | Left upper quadrant | | 2016 - | | MEDICAL CENTER | MD Dereck PATEL | pain; | | | | EMERGENCY [place] | [place] [address] | Non-intractable | | 11/19/ | | [address] | | vomiting with | | 2016 | | [place] | | nausea, vomiting of | | | | [address] | | unspecified type | | | | [phone] | | | +--------+ + + + [...] | | | | | performed at [facility], [address] | | | | | | [address] [place] [address], | | | | | | [place] [address] | | | | + + + [...] EXTERNAL | | | | performed at [facility], [address] | K/uL | LAB | | | | [address] [place], | | | | | | [place] [address] | | | | + + + + + + | RED CELL | 4.48Comment: Testing | 4.20 - 5.70 | EXTERNAL | | | COUNT | performed at [facility], [address] | M/uL | LAB | | | | [address] [place], | | | | | | [place] [address] | | | | + + + + + + | Hgb | 15.2Comment: Testing | 13.2 - 17.0 | EXTERNAL | | | | performed at [facility], [address] | g/dL | LAB | | | | [address] [place], | | | | | | [place] [address] | | | | + + + + + + | Hematocrit, | 44.0Comment: Testing | 39.0 - 50.0 % | EXTERNAL | | | POC | performed at [facility], [address] | | LAB | | | | [address] [place], | | | | | | [place] [address] | | | | + + + + + + | MCV | 98.2Comment: Testing | 80.0 - 100.0 fl | EXTERNAL | | | | performed at [facility], [address] | | LAB | | | | [address] [place], | | | | | | [place] [address] | | | | + + + + + + | MCH | 33.9Comment: Testing | 27.0 - 34.0 pg | EXTERNAL | | | | performed at [facility], [address] | | LAB | | | | [address] [place], | | | | | | [place] [address] | | | | + + + + + + | MCHC | 34.6Comment: Testing | 32.0 - 35.5 | EXTERNAL | | | | performed at [facility], [address] | g/dL | LAB | | | | [address] [place], | | | | | | [place] [address] | | | | + + + + + + | RDW-CV | 44.6Comment: Testing | 37 - 53 fl | EXTERNAL | | | | performed at [facility], [address] | | LAB | | | | [address] [place], | | | | | | [place] [address] | | | | + + + + + + | Platelet | 247Comment: Testing | 150 - 400 K/uL | EXTERNAL | | | Count | performed at [facility], [address] | | LAB | | | Plasma | [address] [place], | | | | | | [place] [address] | | | | + + + + + + | MPV | 7.8Comment: Testing | fl | EXTERNAL | | | | performed at [facility], [address] | | LAB | | | | [address] [place], | | | | | | [place] [address] | | | | + + + + + + | Differentia | AUTOMATEDComment: | | EXTERNAL | | | l Type | Testing performed at | | LAB | | | | [facility], [address] [place], | | | | | | [place] [address] | | | | + + + + + + | % Segmented | 44.75Comment: Testing | % | EXTERNAL | | | | performed at [facility], [address] | | LAB | | | Neutrophils | [address] [place], | | | | | | [place] [address] | | | | + + + + + + | % | 41.80Comment: Testing | % | EXTERNAL | | | Lymphocytes | performed at [facility], [address] | | LAB | | | | [address] [place], | | | | | | [place] [address] | | | | + + + + + + | % Monocytes | 8.72Comment: Testing | % | EXTERNAL | | | | performed at [facility], [address] | | LAB | | | | [address] [place] [address], | | | | | | [place] [address] | | | | + + + + + + | % | 3.60Comment: Testing | % | EXTERNAL | | | Eosinophils | performed at [facility], [address] | | LAB | | | | [address] [place], | | | | | | [place] [address] | | | | + + + + + + | % Basophils | 1.13Comment: Testing | % | EXTERNAL | | | | performed at [facility], [address] | | LAB | | | | [address] [place], | | | | | | [place] [address] | | | | + + + + + + | Absolute | 3.50Comment: Testing | 1.90 - 7.40 | EXTERNAL | | | Segmented | performed at [facility], [address] | K/uL | LAB | | | Neutrophils | [address] [place], | | | | | | [place] [address] | | | | + + + + + + | Absolute | 3.27Comment: Testing | 1.00 - 3.90 | EXTERNAL | | | Lymphocytes | performed at [facility], [address] | K/uL | LAB | | | | [address] [place], | | | | | | [place] [address] | | | | + + + + + + | Absolute | 0.68Comment: Testing | 0.00 - 0.80 | EXTERNAL | | | Monocytes | performed at [facility], [address] | K/uL | LAB | | | | [address] [place], | | | | | | [place] [address] | | | | + + + + + + | Absolute | 0.28Comment: Testing | 0.00 - 0.50 | EXTERNAL | | | Eosinophils | performed at [facility], [address] | K/uL | LAB | | | | [address] [place], | | | | | | [place] [address] | | | | + + + + + + | Absolute | 0.09Comment: Testing | 0.00 - 0.10 | EXTERNAL | | | Basophils | performed at [facility], [address] | K/uL | LAB | | | | [address] [place] [address], | | | | | | [place] [address] | | | | + + + [...] EXTERNAL | | | | performed at [facility], [address] | | LAB | | | | [address] [place] [address], | | | | | | [place] [address] | | | | + + + [...] EXTERNAL | | | | performed at [facility], [address] | | LAB | | | | [address] [address], | | | | | | [place] [address] | | | | + + + [...] EXTERNAL | | | | performed at [facility], [address] | | LAB | | | | [address] [place] [address], | | | | | | [place] [address] | | | | + + + [...] EXTERNAL | | | | performed at [facility], [address] | mmol/L | LAB | | | | [address] [place], | | | | | | [place] [address] | | | | + + + + + + | K | 4.2Comment: Testing | 3.5 - 4.9 | EXTERNAL | | | | performed at [facility], [address] | mmol/L | LAB | | | | [address] [place], | | | | | | [place] [address] | | | | + + + + + + | Cl | 105Comment: Testing | 99 - 109 mmol/L | EXTERNAL | | | | performed at [facility], [address] | | LAB | | | | [address] [place], | | | | | | [place] [address] | | | | + + + + + + | CO2 | 29Comment: Testing | 23 - 32 mmol/L | EXTERNAL | | | | performed at [facility], [address] | | LAB | | | | [address] [place], | | | | | | [place] [address] | | | | + + + + + + | Anion Gap | 13Comment: Testing | 5 - 20 mmol/L | EXTERNAL | | | | performed at [facility], [address] | | LAB | | | | [address] [place], | | | | | | [place] [address] | | | | + + + + + + | Glucose, | 90Comment: Testing | 65 - 99 mg/dL | EXTERNAL | | | Fasting | performed at [facility], [address] | | LAB | | | | [address] [place], | | | | | | [place] [address] | | | | + + + + + + | BUN | 11Comment: Testing | 8 - 25 mg/dL | EXTERNAL | | | | performed at [facility], [address] | | LAB | | | | [address] [place], | | | | | | [place] [address] | | | | + + + + + + | Creatinine | 1Comment: Testing | 0.70 - 1.30 | EXTERNAL | | | | performed at [facility], [address] | mg/dL | LAB | | | | [address] [place], | | | | | | [place] [address] | | | | + + + + + + | BUN/Creatin | 11Comment: Testing | | EXTERNAL | | | ine Ratio | performed at [facility], [address] | | LAB | | | | [address] [place], | | | | | | [place] [address] | | | | + + + + + + | Calcium | 8.8Comment: Testing | 8.5 - 10.5 | EXTERNAL | | | | performed at [facility], [address] | mg/dL | LAB | | | | [address] [place], | | | | | | [place] [address] | | | | + + + + + + | Protein, | 6.6Comment: Testing | 6.3 - 8.2 g/dL | EXTERNAL | | | Total | performed at [facility], [address] | | LAB | | | | [address] [place], | | | | | | [place] [address] | | | | + + + + + + | Albumin | 3.8Comment: Testing | 3.6 - 5.0 g/dL | EXTERNAL | | | | performed at [facility], [address] | | LAB | | | | [address] [place], | | | | | | [place] [address] | | | | + + + + + + | Globulin | 2.8Comment: Testing | 1.3 - 4.9 g/dL | EXTERNAL | | | | performed at [facility], [address] | | LAB | | | | [address] [place], | | | | | | [place] [address] | | | | + + + + + + | A/G Ratio | 1.4Comment: Testing | 1.0 - 2.4 | EXTERNAL | | | | performed at [facility], [address] | | LAB | | | | [address] [place], | | | | | | [place] [address] | | | | + + + + + + | Bilirubin | 0.4Comment: Testing | 0.1 - 1.5 mg/dL | EXTERNAL | | | Total | performed at [facility], [address] | | LAB | | | | [address] [place], | | | | | | [place] [address] | | | | + + + + + + | ALP, | 106Comment: Testing | 35 - 115 U/L | EXTERNAL | | | External | performed at [facility], [address] | | LAB | | | | [address] [place], | | | | | | [place] [address] | | | | + + + + + + | AST | 23Comment: Testing | 10 - 45 U/L | EXTERNAL | | | | performed at [facility], [address] | | LAB | | | | [address], [place], | | | | | | [place] [address] | | | | + + + + + + | ALT | 39Comment: Testing | 10 - 65 U/L | EXTERNAL | | | | performed at [facility], [address] | | LAB | | | | [address], | | | | | | [place] [address] | | | | + + + [...] | | | | | | at [facility], [address] | | | | | [place], [place] | | | | | | [address] | | | | + + + [...]
--- OUTSIDE RECORDS SUMMARY | ~2019-09-03 | XMS | Encounter Summary ---
Demographics + + + | Address | [address] | | | [place] [address] | + + + | Home Phone [...] + + | Organization | [facility] | | | [...] Team Providers + +------+ + | Care Shopper'S Aide Name | Role | Phone | + [...] | | | | | | | [place] | | | | | | | COLONOSCOPY, | | | | | | | DIAGNOSTIC | | | | | | | [place] | | | | | | | [...] + + + + | 04/14/ | Anesthesia | NILO SAVAGE | Ashwin Wright | | | 2013 | Event | [facility] | MD Anuja [address] | | | | | [address] | [address] [place] | | | | | [place] | [address] | | | | | [address] | | | | | | [phone] | Rouqe Watson | | | | | | MD Nichole [address] | | | | | | ST [place], [place] | | | | | | [address] | | | | | | [phone] | | | | | | | | +--------+ + + + + Anesthesia Record + + + + + | Procedure Name | Responsible | Anesthesia Start | Anesthesia Stop Time | | | Anesthesiologist | Time | | + + + + + | EGD / COLONOSCOPY | | 04/14/14 1149 | 04/14/14 1232 | | (N/A ) | | | | + + + + + +----+---+ + + | Da | T | Event | Comment | | te | i | | | | | m | | | | | e | | | +----+---+ + + | 07 | 1 | | | | /1 | 0 | | | | 8/ | 4 | | | | 20 | 9 | | | | 14 | | | | +----+---+ + + | | 1 | An Checkout | Pre-use anesthesia machine/equipment checkout | | | 1 | | | | | 4 | | | | | 8 | | | +----+---+ + + | | 1 | An Start | Reassessment prior to anesthesia induction/procedure. | | | 1 | | | | | 4 | | | | | 9 | | | +----+---+ + + | | 1 | An | | | | 1 | Induction | | | | 4 | | | | | 9 | | | +----+---+ + + | | 1 | An Start | | | | 1 | Data | | | | 4 | | | | | 9 | | | +----+---+ + + | | 1 | Breathing | | | | 2 | Spontaneous | | | | 1 | ly | | | | 2 | | | +----+---+ + + | | 1 | an stop | | | | 2 | data | | | | 2 | | | | | 6 | | | +----+---+ + + | | 1 | An Stop | Patient handed off to recovery nurse. | | | 3 | | | | | 2 | | | +----+---+ + + +------+ | Meds | +------+ + + + | Name | Total | + + + | propofol | 300 mg | + + + | lactated ringers (LR) infusion | 1,100 mL | + + + + + | Name | + + | O2 Flow Rate (L/Min) | + + + + | No blood administrations on file. | + + +--------+ + + + | Type | Details | Placement | Removal | +--------+ + + + | [READ | 04/14/14; 1035; healing within | 04/14/14 1035 by | 11/16/14 1130 by | | ONLY] | expectations; 11/16/14; 1130 | Brianne Kelly | Almita Armstrong RN | | | | | | | Periph | | | | | eral | | | | | IV - | | | | | Single | | | | | Lumen | | | | | | | | | +--------+ + + [...] filedocumented in this encounter Administered Medications + + + +------+ +------+ | Medication Order | MAR | Action | Dose | Rate | Site | | | Action | Date | | | | + + + +------+ +------+ | lactated ringers (LR) infusion | Restarte | 04/14/20 | | 50 mL/hr | | | at 10-100 mL/hr, Intravenous, | d | 14 12:40 | | | | | CONTINUOUS, Starting 04/14/14 | | PM PDT | | | | | at 1015, TKO., Pre-op | | | | | | + + + +------+ +------+ +---------+ +----+ +---+ | New Bag | [...] | | +---+---+ + +-------+ +--------+---+---+ | propofol (DIPRIVAN) injection | Given | 04/14/20 | 100 mg | | | | PRN, Starting 04/14/14 at | | 14 12:18 | | | | | 1153, Anesthesia Intra-op | | PM PDT | | | | + +-------+ +--------+---+---+ +-------+ +--------+---+---+ | Given | 04/14/20 | 100 mg | | | | | 14 12:00 | | | | | | PM PDT | | | | +-------+ +--------+---+---+ | Given | 04/14/20 | 100 mg | | | | | 14 11:53 | | | | | | AM PDT | | | | +-------+ +--------+---+---+ +---+---+ | | | +---+---+ documented in this encounter"
--- OUTSIDE RECORDS SUMMARY | ~2019-09-03 | XMS | Encounter Summary ---
Demographics + + + | Address | [address] | | | [place] [address] | + + + | Home Phone | | + + + | Preferred Language | Unknown | + + + | Marital Status | Single | + + + | Presybeterian Affiliation | 1013 | + + + | Race | Unknown | + + + | Ethnic Group | Unknown | + + + Author + + + | Author | [facility] | | | and [place] | + + + | Organization | [facility] | | | and [...] Team Providers + +------+ + | Care Drink Waiter Name | Role | Phone | + [...] | | | | | site | [place], [place] | [place] [address] | | | | | Abdominal | [address] | Phone: | | | | | pain, | Phone: | [phone] | | | | | unspecified | [phone] | Fax: | | | | | site Other | Fax: | [phone] | | | | | opiates and | [phone] | | | | | | related [...] | | | | | | | [place] | | | | | | | COLONOSCOPY | | | | | | | FLX DX | | | | | | | W/COLLJ SPEC | | | | | | | WHEN PFRMD | | | | | | | MA | | | | | | | COLONOSCOPY | | | | | | | W/BIOPSY | | | | | | | SINGLE/MULTI | | | | | | | PLE MA | | | | | | | COLSC FLX | | | | | | | W/RMVL OF | | | | | | | TUMOR POLYP | | | | | | | LESION SNARE | | | | | | | TQ MA | | | | | | | [...] Comments | +--------+ + | Other | Schedule colonoscopy | +--------+ + Encounter Details +--------+ + + + + | Date | Type | Department | Care Team | Description | +--------+ + + + + | 10/30/ | Telephone | [facility] | Carmelo Patterson MD | Other (Schedule | | 2014 | | GASTROENTEROLOGY | [address] | colonoscopy) | | | | [address] [facility] | [place], [place] | | | | | [address] [place], [place] | [address] | | | | | [address] | [phone] | | | | | [phone] | | | +--------+ + + + [...] of this encounter Plan of Treatment + + [...]
--- OUTSIDE RECORDS SUMMARY | ~2019-09-03 | XMS | Encounter Summary ---
Demographics + + + | Address | [address] | | | [place] [address] | + + + | Home Phone | | + + + | Preferred Language | Unknown | + + + | Marital Status | Single | + + + | Sabianist Affiliation | 1013 | + + + | Race | Unknown | + + + | Ethnic Group | Unknown | + + + Author + + + | Author | [facility] | | | and [place] | + + + | Organization | [facility] | | | and [place] [...] Team Providers + +------+ + | Care Meteorological Technician Name | Role | Phone | [...] [place] | | | | | | [address] | | | | | | [phone] | | | +--------+ + + + [...]
--- OUTSIDE RECORDS SUMMARY | ~2019-09-03 | XMS | Encounter Summary ---
Demographics + + + | Address | [address] | | | [place] [address] | + + + | Home Phone | | + + + | Preferred Language | Unknown | + + + | Marital Status | Single | + + + | Protestant Affiliation | CHR | + + + [...] Team Providers + +------+ + | Care Animation Director Name | Role | Phone | [...] | | 2014 | | Center at [facility] [address] | MD | Authorization | | | | [place] | | (Benji HAIDER approval | | | | Mailcode: Center | | - [facility]) | | | | for Health and | | | | | | [facility], [facility] [address] | | | | | | [place], [place] | | | | | | [address] | | | | | | [phone] | | | +--------+ + + + [...]
--- OUTSIDE RECORDS SUMMARY | ~2019-09-03 | XMS | Encounter Summary ---
Demographics + + + | Address | [address] | | | [place] [address] | + + + | Home Phone [...] Organization | [facility] | | | and [...] + +------+ + | Care Director Of Retail Name | Role | Phone | + [...] | | | | | | | [place] | | | | | | | COLONOSCOPY, | | | | | | | DIAGNOSTIC | | | | | | | [place] | | | | | | | [...] + + | 04/14/ | Hospital | [facility] | Carmelo Patterson MD | Abdominal pain | | 2013 | Encounter | [facility] CTR [facility] OP | [address] | (Primary Dx); | | | | [address] | [place] | Crohn's disease, | | | | [place] | [address] | unspecified | | | | [address] | [phone] | complication (HCC) | | | | [phone] | | | +--------+ + + + [...] the physician who did your procedure at [phone] if you have any questions or experience any of the following: Increasing abdominal pain, nausea, or vomiting. Chills and fever over 101F. New abdominal swelling or bloating. Signs of rectal bleeding (black or red stool. If you cannot get a hold of your physician, then call the [facility] [phone] . If necessary, report to the Emergency Department at [facility]. Quit smoking: If you smoke or [...] site | | | | | | ([facility]) | | + +--------+ + + + [...] | PROVATION | | 04/14/2014 11:49 AMMRN: [id number] #: [id number] of : | | | 1970Admit Type: AmbulatoryAge: 43Room: [facility] 02Gender: MaleNote | | | Status: FinalizedAttending MD: Carmelo Patterson, [facility]rocedure: | | | Upper GI endoscopyIndications: Epigastric abdominal pain, | | | Nausea with vomitingProviders: Carmelo Patterson MD, | | | Monique Ling RN, Johana | | | ADITI Jerez, RUBY NORTON, Adding Machine Mechanic, Ashwin [place] MD | | | (Anesthesia [...] the anesthesiologist and the | | | regulatory and compliance technician in the pre-procedure area in the [...] On: 04/14/2014 11:49 AM | | | [facility], [address] [place] [address] | | | [address] | | | - Normal esophagus. | [...] On: 04/14/2014 11:49 AM | | | [facility], [address] [place] [address] | | | [address] | | + + -+ + + [...] | PROVATION | | 04/14/2014 11:47 AMMRN: [id number] #: [id number] of : | | | 1970Admit Type: AmbulatoryAge: 43Room: [facility] 02Gender: MaleNote | | | Status: FinalizedAttending MD: Carmelo Patterson, [facility] CLAIRrocedure: | | | ColonoscopyIndications: Abdominal painProviders: | | | Carmelo Patterson MD, Monique Ling RN, Johana | | | ADITI Jerez, RUBY NORTON, Adding Machine Mechanic, Ashwin | | | MD Adriana (Anesthesia [...] the anesthesiologist and the | | | regulatory and compliance technician in the pre-procedure area in the [...] On: 04/14/2014 | | | 11:47 AM [facility], [address] [facility], | | | [place] [address] | | | colon. No specimens collected. [...] On: 04/14/2014 11:47 AM | | | [facility], [address] [facility], [place], [place] | | | [address] | | + + -+ + + | Transcriptions | + + | Kitty Macdonaldtx - 04/14/2014 12:00 AM PDT | + [...]
--- OUTSIDE RECORDS SUMMARY | ~2019-09-03 | XMS | Encounter Summary ---
Demographics + + + | Address | [address] | | | [place] [address] | + + + | Home Phone [...] Team Providers + +------+ + | Care Utility Worker [place] Name | Role | Phone | + [...] Suicidal Ideation | | 2017 | | [place] [id number] | | | | | | [place] | | | | | | Mailcode: [place] | | | | | | for Health and | | | | | | [facility], [facility] [address] | | | | | | [place], [place] | | | | | | [address] | | | | | | [phone] | | | +--------+ + + + [...]
--- OUTSIDE RECORDS SUMMARY | ~2019-09-03 | XMS | Encounter Summary ---
Demographics + + + | Address | [address] | | | [place] [address] | + + + | Home Phone [...] Author | [facility] | | | and [place] | + + + | Organization | [facility] [...] Team Providers + +------+ + | Care Stockfeed Miller Name | Role | Phone | + [...] | | | [address] [place], [place] | [place] [address] | | | | | [address] | [phone] | | | | | [phone] | | | +--------+ + + + [...]
--- OUTSIDE RECORDS SUMMARY | ~2019-09-03 | XMS | Encounter Summary ---
Demographics + + + | Address | [address] | | | [place] [address] | + + + | Home Phone [...] + + + | Author | [facility] | + + + | Organization | [facility] | + + + | Address | Unknown | + + + | Phone | Unavailable | + + + Support + + +---------+ + | Name | Relationship | Address | Phone | + + +---------+ + | Thalia Armani | ECON | Unknown | | + + +---------+ + Care Team Providers + +------+ + | Care Trimmer Operator Name | Role | Phone | [...] + + | 04/09/ | Telephone | Stable Helper | Chayito Perez, | Suicidal Ideation | | 2017 | IP | [address] | DEPLOYMENT SPECIALIST [address] [facility] | (follow up by PAT | | | | [place] [place], | [address] | evening/weekend SW | | | | [place] [address] | [place], [place] | at request of | | | | | [address] | Christopher) | +--------+ + + + [...]
--- OUTSIDE RECORDS SUMMARY | ~2019-09-03 | XMS | Encounter Summary ---
Demographics + + + | Address | [address] | | | [place] [address] | + + + | Home Phone | | + + + | Preferred Language | Unknown | + + + | Marital Status | Single | + + + | Voodoo Affiliation | 1013 | + + + | Race | Unknown | + + + | Ethnic Group | Unknown | + + + Author + + + | Author | [facility] | | | and [place] | + + + | Organization | [facility] | | | and [place] [...] Team Providers + +------+ + | Care Siding Applicator Name | Role | Phone | + [...] | [address] [place], [place] | [place] [address] | | | | | [address] | [phone] | | | | | [phone] | | | +--------+ + + + [...]
--- OUTSIDE RECORDS SUMMARY | ~2019-09-03 | XMS | Encounter Summary ---
Demographics + + + | Address | [address] | | | [place] [address] | + + + | Home Phone [...] + | Organization | [facility] | [...] Providers + +------+ + | Care Hotel Manager Name | Role | Phone | [...] | | | | | site | [place], [place] | [place] [address] | | | | | Abdominal | [address] | Phone: | | | | | pain, | Phone: | [phone] | | | | | unspecified | [phone] | Fax: | | | | | site | Fax: | [phone] | | | | | Procedures | [phone] | | | | | | [place] [...] | + + + | Appointment | reschedule colonoscopy due to poor prep | + + + Encounter Details +--------+ + + + + | Date | Type | Department | Care Team | Description | +--------+ + + + + | 05/11/ | Telephone | [facility] | Carmelo Patterson MD | Appointment | | 2013 | | GASTROENTEROLOGY | [address] | (reschedule | | | | [address] [facility] | [place], [place] | colonoscopy due to | | | | [address] [place] | [address] | poor prep) | | | | [address] | [phone] | | | | | [phone] | | | +--------+ + + + [...]
--- OUTSIDE RECORDS SUMMARY | ~2019-09-03 | XMS | Encounter Summary ---
Demographics + + + | Address | [address] | | | [place] [address] | + + + | Home Phone [...] | Organization | [facility] | [...] Team Providers + +------+ + | Care Drum Straightener Name | Role | Phone | + [...] + | 02/05/ | Telephone | [facility] | Carmelo Patterson MD | Procedure (r/s | | 2016 | | GASTROENTEROLOGY | [address] | egd/colon) | | | | [address] [facility] | [place], [place] | | | | | [address] [place] | [address] | | | | | [address] | [phone] | | | | | [phone] | | | +--------+ + + + [...]
--- OUTSIDE RECORDS SUMMARY | ~2019-09-03 | XMS | Encounter Summary ---
Demographics + + + | Address | [address] | | | [place] [address] | + + + | Home Phone | | + + + | Preferred Language | Unknown | + + + | Marital Status | Single | + + + | Orthodox Affiliation | CHR | + + [...] Team Providers + +------+ + | Care Ui Designer Name | Role | Phone | + +------+ + | Meaghan Zhong MD | PCP | | + +------+ + Encounter Details +--------+---------+ + + + | Date | Type | Department | Care Team | Description | +--------+---------+ + + + | 09/15/ | Office | Preoperative | 1, [facility] Associate Professor Of Automation [address] | Other Complication | | 2006 | Visit | Medicine Clinic at | [facility] [address] | of Colostomy or | | | | [facility] 4th Floor [address] | [place] [address] | Enterostomy; Crohns | | | | [address] | | Disease (HCC); Other | | | | Mailcode: [facility] | | Specified | | | | [place] [facility] | | Pre-Operative | | | | and Healing, | | Examination; | | | | Building 1,4th Floor | | Hemorrhagic Disorder | | | | [place], [place] | | due to Intrinsic | | | | [address] | | Circulating | | | | [phone] | | Anticoagulants | +--------+---------+ + + [...] | + + + + + | [facility] DEPARTMENT OF | [address] | [place] [address] | | | PATHOLOGY | [address] | | | + + + + + | [place] DEPARTMENT OF | [address] | [place] [address] | | | PATHOLOGY | [address] [...] | + + + + + | [facility] DEPARTMENT OF | [address] | [place] [address] | | | PATHOLOGY | [address] | | | + + + + + | [facility] DEPARTMENT OF | [address] | [place] [address] | | | PATHOLOGY | [address] [...] | + + + + + | [facility] | [facility] [address] | [place] [address] | | | PATHOLOGY | [address] | | | + + + + + | [facility] DEPARTMENT OF | [facility] | [place] [address] | | | PATHOLOGY | [address] [...] | + + + + + | [facility] DEPARTMENT OF | [address] [facility] | [place] [address] | | | PATHOLOGY | [address] | | | + + + + + | [facility] DEPARTMENT OF | [address] [facility] | [place] [address] | | | PATHOLOGY | [address] [...] Performed At | + + + | [id number] Estimated GFR > 60 mL/min/1.73 sq m if non- | [facility] | | [id number] Estimated GFR > 60 mL/min/1.73 sq m [...] | + + + + + | [facility] | [address] [facility] | [place] [address] | | | PATHOLOGY | [address] | | | + + + + + | [facility] | [address] [facility] | [place] [address] | | | PATHOLOGY | [address] [...] + + + + | PRODUCT | [id number] | | [facility] | | | UNIT [...] DEPARTMENT OF | [address] | [place] [address] | | | PATHOLOGY | [address] | | | + + + + + | [facility] | [address] | [place] [address] | | | PATHOLOGY | [address] [...]
--- OUTSIDE RECORDS SUMMARY | ~2019-09-03 | XMS | Encounter Summary ---
Demographics + + + | Address | [address] | | | [place] [address] | + + + | Home Phone [...] | Organization | [facility] | | | and [place] [...] Team Providers + +------+ + | Care K 9 Police Officer Name | Role | Phone | [...] | [place] | | | | | [phone] | | | +--------+ + + + [...]
--- OUTSIDE RECORDS SUMMARY | ~2019-09-03 | XMS | Encounter Summary ---
Demographics + + + | Address | [address] | | | [place] [address] | + + + | Home Phone [...] + | Organization | [facility] | | [...] Team Providers + +------+ + | Care Package Dyer Name | Role | Phone | + [...] | [address] | [place] [address] | | | | | [place], [place] | [phone] | | | | | [address] | | | | | | [phone] | | | +--------+ + + + [...] is moderate. Job #: | | | [id number] Read By: JEOVANY MIRELES MD Released By: JEOVANY Gauthier | | [...] risk is | | moderate. Job #: [id number] Read By: JEOVANY MIRELES MD Released By: [...]
--- OUTSIDE RECORDS SUMMARY | ~2019-09-03 | XMS | Encounter Summary ---
Demographics + + + | Address | [address] | | | [place] [address] | + + + | Home Phone | | + + + | Preferred Language | Unknown | + + + | Marital Status | Single | + + + | Amish Affiliation | 1013 | + + + | Race | Unknown | + + + | Ethnic Group | Unknown | + + + Author + + + | Author | [facility] | | | and [place] | + + + | Organization | [facility] | | | and [place] [...] Providers + +------+ + | Care Dental Laboratory Manager Name | Role | Phone | + +------+ + | No, Physician | PCP | Unavailable | + +------+ + Encounter Details +--------+ + + + + | Date | Type | Department | Care Team | Description | +--------+ + + + + | 11/29/ | Emergency | [facility] | Alex Isaac | Flank pain | | 2015 | | [facility] | DO [address] | | | | [address] | [address] | | | | [address] | [place] | | | | | [place] | [address] | | | | | [address] | [phone] | | | | | [phone] | | | +--------+ + + + [...] GROWTH | | | Testing performed at [facility], [address] | | | [place] [address] | | + + + + +---------+ [...] | | performed at [facility], [facility] | | LAB | | | | [address], [place], | | | | | | [place] [address] | | | | + + + + + + | Clarity | CLOUDYComment: Testing | | EXTERNAL | | | | performed at [facility], [address] | | LAB | | | | [address] [place], | | | | | | [place] [address] | | | | + + + + + + | Specific | 1.015Comment: Testing | 1.001 - 1.035 | EXTERNAL | | | Maple | performed at [facility], [address] | | LAB | | | | [address] [place], | | | | | | [place] [address] | | | | + + + + + + | Leukocyte | NEGATIVEComment: Testing | | EXTERNAL | | | Esterase, | performed at [facility], [address] | | LAB | | | Urine | [address] [place], | | | | | | [place] [address] | | | | + + + + + + | Nitrite, | NEGATIVEComment: Testing | | EXTERNAL | | | Urine | performed at [facility], [address] | | LAB | | | | [address] [place], | | | | | | [place] [address] | | | | + + + + + + | Urobilinoge | 0.2Comment: Testing | mg/dL | EXTERNAL | | | n, Urine | performed at [facility], [address] | | LAB | | | | [address] [place], | | | | | | [place] [address] | | | | + + + + + + | Protein, | 30 (A)Comment: Testing | mg/dL | EXTERNAL | | | Urine | performed at [facility], [address] | | LAB | | | | [address] [place], | | | | | | [place] [address] | | | | + + + + + + | pH, Urine | 7.5Comment: Testing | 4.6 - 8.0 | EXTERNAL | | | | performed at [facility], [address] | | LAB | | | | [address] [place], | | | | | | [place] [address] | | | | + + + + + + | Blood, | NEGATIVEComment: Testing | | EXTERNAL | | | Urine | performed at [facility], [address] | | LAB | | | | [address] [place], | | | | | | [place] [address] | | | | + + + + + + | Ketones | NEGATIVEComment: Testing | mg/dL | EXTERNAL | | | | performed at [facility], [address] | | LAB | | | | [address] [place], | | | | | | [place] [address] | | | | + + + + + + | Bilirubin, | NEGATIVEComment: Testing | | EXTERNAL | | | Urine | performed at [facility], [address] | | LAB | | | | [address] [place], | | | | | | [place] [address] | | | | + + + + + + | Glucose, | NEGATIVEComment: Testing | mg/dL | EXTERNAL | | | Urine | performed at [facility], [address] | | LAB | | | | [address] [place], | | | | | | [place] [address] | | | | + + + [...] | | | | | | [place] [address] | | | | + + + + + + | RBC, UA | 1-5Comment: Testing | 0 - 2 /hpf | EXTERNAL | | | | performed at [facility], [address] | | LAB | | | | [address] [place], | | | | | | [place] [address] | | | | + + + + + + | Epithelial | 6-10Comment: Testing | /lpf | EXTERNAL | | | Cells | performed at [facility], [address] | | LAB | | | | [address] [place], | | | | | | [place] [address] | | | | + + + + + + | Bacteria, | 2+ (A)Comment: Testing | | EXTERNAL | | | UA | performed at [facility], [address] | | LAB | | | | [address] [place], | | | | | | [place] [address] | | | | + + + + + + | Crystals | 4+Comment: | /hpf | EXTERNAL | | | | PHOSPHATESTesting | | LAB | | | | performed at [facility], [address] | | | | | | [address] [place], | | | | | | [place] [address] | | | | + + + + + + | Urinalysis | CULTURE TO | | EXTERNAL | | | Comments | FOLLOWComment: Testing | | LAB | | | | performed at [facility], [address] | | | | | | [address] [place], | | | | | | [place] [address] | | | | + + + [...] | | | | | | [place] [address] | | | | + + + + + + | RED CELL | 4.38Comment: Testing | 4.20 - 5.70 | EXTERNAL | | | COUNT | performed at [facility], [address] | M/uL | LAB | | | | [address] [place], | | | | | | [place] [address] | | | | + + + + + + | Hgb | 14.7Comment: Testing | 13.2 - 17.0 | EXTERNAL | | | | performed at [facility], [address] | g/dL | LAB | | | | [address] [place], | | | | | | [place] [address] | | | | + + + + + + | Hematocrit, | 43.3Comment: Testing | 39.0 - 50.0 % | EXTERNAL | | | POC | performed at [facility], [address] | | LAB | | | | [address] [place], | | | | | | [place] [address] | | | | + + + + + + | MCV | 98.9Comment: Testing | 80.0 - 100.0 fl | EXTERNAL | | | | performed at [facility], [address] | | LAB | | | | [address] [place], | | | | | | [place] [address] | | | | + + + + + + | MCH | 33.5Comment: Testing | 27.0 - 34.0 pg | EXTERNAL | | | | performed at [facility], [address] | | LAB | | | | [address] [place], | | | | | | [place] [address] | | | | + + + + + + | MCHC | 33.9Comment: Testing | 32.0 - 35.5 | EXTERNAL | | | | performed at [facility], [address] | g/dL | LAB | | | | [address] [place], | | | | | | [place] [address] | | | | + + + + + + | RDW-CV | 45.5Comment: Testing | 37 - 53 fl | EXTERNAL | | | | performed at [facility], [address] | | LAB | | | | [address] [place], | | | | | | [place] [address] | | | | + + + + + + | Platelet | 229Comment: Testing | 150 - 400 K/uL | EXTERNAL | | | Count | performed at [facility], [address] | | LAB | | | Plasma | [address] [place], | | | | | | [place] [address] | | | | + + + + + + | MPV | 7.9Comment: Testing | fl | EXTERNAL | | | | performed at [facility], [address] | | LAB | | | | [address] [place], | | | | | | [place] [address] | | | | + + + + + + | Differentia | AUTOMATEDComment: | | EXTERNAL | | | l Type | Testing performed at | | LAB | | | | [facility], [address], | | | | | | [place] [address] | | | | + + + + + + | % Segmented | 55.91Comment: Testing | % | EXTERNAL | | | | performed at [facility], [address] | | LAB | | | Neutrophils | [address] [place], | | | | | | [place] [address] | | | | + + + + + + | % | 34.40Comment: Testing | % | EXTERNAL | | | Lymphocytes | performed at [facility], [address] | | LAB | | | | [address] [place], | | | | | | [place] [address] | | | | + + + + + + | % Monocytes | 6.21Comment: Testing | % | EXTERNAL | | | | performed at [facility], [address] | | LAB | | | | [address] [place], | | | | | | [place] [address] | | | | + + + + + + | % | 2.11Comment: Testing | % | EXTERNAL | | | Eosinophils | performed at [facility], [address] | | LAB | | | | [address] [place], | | | | | | [place] [address] | | | | + + + + + + | % Basophils | 1.37Comment: Testing | % | EXTERNAL | | | | performed at [facility], [address] | | LAB | | | | [address] [place], | | | | | | [place] [address] | | | | + + + + + + | Absolute | 5.22Comment: Testing | 1.90 - 7.40 | EXTERNAL | | | Segmented | performed at [facility], [address] | K/uL | LAB | | | Neutrophils | [address] [place], | | | | | | [place] [address] | | | | + + + + + + | Absolute | 3.21Comment: Testing | 1.00 - 3.90 | EXTERNAL | | | Lymphocytes | performed at [facility], [address] | K/uL | LAB | | | | [address] [place], | | | | | | [place] [address] | | | | + + + + + + | Absolute | 0.58Comment: Testing | 0.00 - 0.80 | EXTERNAL | | | Monocytes | performed at [facility], [address] | K/uL | LAB | | | | [address] [place], | | | | | | [place] [address] | | | | + + + + + + | Absolute | 0.20Comment: Testing | 0.00 - 0.50 | EXTERNAL | | | Eosinophils | performed at [facility], [address] | K/uL | LAB | | | | [address] [place], | | | | | | [place] [address] | | | | + + + + + + | Absolute | 0.13 (H)Comment: Testing | 0.00 - 0.10 | EXTERNAL | | | Basophils | performed at [facility], [address] | K/uL | LAB | | | | [address], | | | | | | [place] [address] | | | | + + + [...] | | | | | | [place] [address] | | | | + + + [...] | | | | | | [place] [address] | | | | + + + [...] | | | | | | [place] [address] | | | | + + + + + + | K | 4.1Comment: Testing | 3.5 - 4.9 | EXTERNAL | | | | performed at [facility], [address] | mmol/L | LAB | | | | [address] [place], | | | | | | [place] [address] | | | | + + + + + + | Cl | 109Comment: Testing | 99 - 109 mmol/L | EXTERNAL | | | | performed at [facility], [address] | | LAB | | | | [address] [place], | | | | | | [place] [address] | | | | + + + + + + | CO2 | 26Comment: Testing | 23 - 32 mmol/L | EXTERNAL | | | | performed at [facility], [address] | | LAB | | | | [address] [place], | | | | | | [place] [address] | | | | + + + + + + | Anion Gap | 13Comment: Testing | 5 - 20 mmol/L | EXTERNAL | | | | performed at [facility], [address] | | LAB | | | | [address] [place], | | | | | | [place] [address] | | | | + + + + + + | Glucose, | 108 (H)Comment: Testing | 65 - 99 mg/dL | EXTERNAL | | | Fasting | performed at [facility], [address] | | LAB | | | | [address] [place], | | | | | | [place] [address] | | | | + + + + + + | BUN | 25Comment: Testing | 8 - 25 mg/dL | EXTERNAL | | | | performed at [facility], [address] | | LAB | | | | [address] [place], | | | | | | [place] [address] | | | | + + + + + + | Creatinine | 1.41 (H)Comment: Testing | 0.70 - 1.30 | EXTERNAL | | | | performed at [facility], [address] | mg/dL | LAB | | | | [address] [place], | | | | | | [place] [address] | | | | + + + + + + | BUN/Creatin | 18Comment: Testing | | EXTERNAL | | | ine Ratio | performed at [facility], [address] | | LAB | | | | [address] [place], | | | | | | [place] [address] | | | | + + + + + + | Calcium | 8.7Comment: Testing | 8.5 - 10.5 | EXTERNAL | | | | performed at [facility], [address] | mg/dL | LAB | | | | [address] [place], | | | | | | [place] [address] | | | | + + + + + + | Protein, | 6.3Comment: Testing | 6.3 - 8.2 g/dL | EXTERNAL | | | Total | performed at [facility], [address] | | LAB | | | | [address] [place], | | | | | | [place] [address] | | | | + + + + + + | Albumin | 3.5 (L)Comment: Testing | 3.6 - 5.0 g/dL | EXTERNAL | | | | performed at [facility], [address] | | LAB | | | | [address] [place], | | | | | | [place] [address] | | | | + + + + + + | Globulin | 2.8Comment: Testing | 1.3 - 4.9 g/dL | EXTERNAL | | | | performed at [facility], [address] | | LAB | | | | [address] [place], | | | | | | [place] [address] | | | | + + + + + + | A/G Ratio | 1.2Comment: Testing | 1.0 - 2.4 | EXTERNAL | | | | performed at [facility], [address] | | LAB | | | | [address] [place], | | | | | | [place] [address] | | | | + + + + + + | Bilirubin | 0.3Comment: Testing | 0.1 - 1.5 mg/dL | EXTERNAL | | | Total | performed at [facility], [address] | | LAB | | | | [address] [place], | | | | | | [place] [address] | | | | + + + + + + | ALP, | 92Comment: Testing | 35 - 115 U/L | EXTERNAL | | | External | performed at [facility], [address] | | LAB | | | | [address] [place], | | | | | | [place] [address] | | | | + + + + + + | AST | 21Comment: Testing | 10 - 45 U/L | EXTERNAL | | | | performed at [facility], [address] | | LAB | | | | [address] [place], | | | | | | [place] [address] | | | | + + + + + + | ALT | 41Comment: Testing | 10 - 65 U/L | EXTERNAL | | | | performed at [facility], [address] | | LAB | | | | [address] [place], | | | | | | [place] [address] | | | | + + + [...] | | | | | [place], [place] | | | | | | [address] | | | | + + + [...]
--- OUTSIDE RECORDS SUMMARY | ~2019-09-03 | XMS | Encounter Summary ---
Demographics + + + | Address | [address] | | | [place] [address] | + + + | Home Phone [...] + | Organization | [facility] | | [...] Team Providers + +------+ + | Care Switching Operator Name | Role | Phone | [...] + + | 04/14/ | [facility] | [facility] | Carmelo Patterson MD | EGD / COLONOSCOPY | | 2013 | | MED CTR MP INTRA OP | [address] | | | | | [address] | [place] | | | | | [place] | [address] | | | | | [address] | [phone] | | | | | [phone] | | | +--------+---------+ + + + [...] the physician who did your procedure at [phone] if you have any questions or experience any of the following: Increasing abdominal pain, nausea, or vomiting. Chills and fever over 101F. New abdominal swelling or bloating. Signs of rectal bleeding (black or red stool. If you cannot get a hold of your physician, then call the [facility] [phone] . If necessary, report to the Emergency [...] | | | | | | ([facility]) | | + +--------+ + + + [...] | PROVATION | | 04/14/2014 11:49 AMMRN: [id number] #: [id number] of : | | | 1970Admit Type: AmbulatoryAge: 43Room: [facility] 02Gender: MaleNote | | | Status: FinalizedAttending MD: Carmelo Patterson [facility]: | | | Upper GI endoscopyIndications: Epigastric abdominal pain, | | | Nausea with vomitingProviders: Carmelo Patterson MD, | | | Monique Ling RN, Johana | | | ADITI Jerez, RUBY NORTON, Plasma Processor, Ashwin Wright MD | | | (Anesthesia [...] the anesthesiologist and the | | | help desk technician in the pre-procedure area in the [...] On: 04/14/2014 11:49 AM | | | [facility], [address] [place] [address] | | | [address] | | | - Normal esophagus. | [...] On: 04/14/2014 11:49 AM | | | [facility], [address] [place] [address] | | | [address] | | + + -+ + + [...] | PROVATION | | 04/14/2014 11:47 AMMRN: [id number] #: [id number] of : | | | 1970Admit Type: AmbulatoryAge: 43Room: [facility] 02Gender: MaleNote | | | Status: FinalizedAttending MD: Carmelo Patterson, [facility]cedure: | | | ColonoscopyIndications: Abdominal painProviders: | | | Carmelo Patterson MD, Monique Ling RN, Johana | | | ADITI Jerez, RUBY NORTON, Plasma Processor, Ashwin | | | MD Adriana (Anesthesia [...] the anesthesiologist and the | | | help desk technician in the pre-procedure area in the [...] | recommendations were discussed with the patient.Carmelo Patterson, | | | 04/14/2014 12:37 PMNumber of Addenda: 0Note Initiated On: 04/14/2014 | | | 11:47 AM [facility], [address], | | | [place] [address] | | | colon. No specimens collected. [...] On: 04/14/2014 11:47 AM | | | [facility], [address], [place], [place] | | | [address] | | + + -+ + + [...] | mcg, Intravenous, ONCE, Thu | | 1:05 | | | Arm | | [...]
--- OUTSIDE RECORDS SUMMARY | ~2019-09-03 | XMS | Clinical Summary ---
Demographics + + + | Address | [address] | | | [place] [address] | + + + | Home Phone [...] + + | Author | [facility] (Historical as of | | | 05-14-19) | + + + | Organization | [facility] (Historical as of | | | 05-14-19) [...] Providers + +------+ + | Care Assembler Motor Vehicle Name | Role | Phone | + [...] +------+-------+ + | MEDICAID | [place] | [id number] | | | [address] | | | [place] | | | | [place] | | | [place] | | | | [address] | | | PLANNER INTERN | | | | | + +--------+ [...] | 1971 | [phone] | [place] [address] | | | david | | | [phone] | | + +--------+ +--------+ + +
--- OUTSIDE RECORDS SUMMARY | ~2019-09-03 | XMS | Encounter Summary ---
Demographics + + + | Address | [address] | | | [place] [address] | + + + | Home Phone [...] + + + | Author | [facility] [place] | | | and [place] | + + + | Organization | [facility] | | [...] Providers + +------+ + | Care Dry Cans Operator Name | Role | Phone | [...] 2012 | | GASTROENTEROLOGY | [address] | | | | | [address] [place] | [address] [place], | | | | | [address] [place], [place] | [place] [address] | | | | | [address] | [phone] | | | | | [phone] | | | +--------+ + + + [...]
--- OUTSIDE RECORDS SUMMARY | ~2019-09-03 | XMS | Encounter Summary ---
Demographics + + + | Address | [address] | | | [place] [address] | + + + | Home Phone [...] + | Organization | [facility] [place] | | | and [place] [...] Providers + +------+ + | Care Manager Net Name | Role | Phone | + +------+ + PCP | Unavailable | + +------+ + Encounter Details +--------+ + + + + | Date | Type | Department | Care Team | Description | +--------+ + + + + | 09/19/ | Hospital | [facility] | Epi [facility] | | | 2009 | Encounter | HOSPITAL XRAY [address] | MD [address] | | | | | [place] | [address] | | | | | [place], [place] | [place] [address] | | | | | [address] | [phone] | | | | | [phone] | | | +--------+ + + + [...]
--- OUTSIDE RECORDS SUMMARY | ~2019-09-03 | XMS | Encounter Summary ---
Demographics + + + | Address | [address] | | | [place] [address] | + + + | Home Phone [...] + | Author | [facility] [place] | | | and [place] | + + + | Organization | [facility] [...] Team Providers + +------+ + | Care Mammography Technologist Name | Role | Phone | + [...] | [address], [place] | [place] [address] | | | | | [address] | [phone] | | | | | [phone] | | | +--------+ + + + [...]
--- OUTSIDE RECORDS SUMMARY | ~2019-09-03 | XMS | Encounter Summary ---
Demographics + + + | Address | [address] | | | [place] [address] | + + + | Home Phone [...] | Organization | [facility] [place] | | [...] Team Providers + +------+ + | Care Entry Manager Name | Role | Phone | [...] + + | 06/22/ | Telephone | [facility] | Carmelo Patterson MD | Appointment (cancel | | 2013 | | GASTROENTEROLOGY | [address] | colonoscopy) | | | | [address] | [place], [place] | | | | | [address] [place] | [address] | | | | | [address] | [phone] | | | | | [phone] | | | +--------+ + + + [...]
--- OUTSIDE RECORDS SUMMARY | ~2019-09-03 | XMS | Encounter Summary ---
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
--- OUTSIDE RECORDS SUMMARY | ~2019-09-03 | XMS | Encounter Summary ---
Demographics + + + | Address | [address] | | | [place] [address] | + + + | Home Phone [...] Team Providers + +------+ + | Care Food Inspector Name | Role | Phone | [...] 2016 | | Center at [facility] [address] | MD | Review (11/21/2015 | | | | [place] | | Dr. Green OV note - | | | | Mailcode: [place] | | Patel Maral) | | | | for Health and | | | | | | [facility], [place] [address] | | | | | | [place], [place] | | | | | | [address] | | | | | | [phone] | | | +--------+ + + + [...]
--- OUTSIDE RECORDS SUMMARY | ~2019-09-03 | XMS | Encounter Summary ---
Demographics + + + | Address | [address] | | | [place] [address] | + + + | Home Phone [...] Providers + +------+ + | Care Maintenance Dispatcher Name | Role | Phone | + [...] Abdominal pain | | 2017 | | [place] [address] | MD | | | | | [place] | | | | | | Mailcode: [place] | | | | | | [facility] Health and | | | | | | [facility] | | | | | | [place], [place] | | | | | | [address] | | | | | | [phone] | | | +--------+ + + + [...]
--- OUTSIDE RECORDS SUMMARY | ~2019-09-03 | XMS | Encounter Summary ---
Demographics + + + | Address | [address] | | | [place] [address] | + + + | Home Phone [...] + + + | Author | [facility] | + + + | Organization | [facility] | + + + | Address | Unknown | + + + | Phone | Unavailable | + + + Support + + +---------+ + | Name | Relationship | Address | Phone | + + +---------+ + | Thalia Armani | ECON | Unknown | | + + +---------+ + Care Team Providers + +------+ + | Care Inbound Call Center Representative Name | Role | Phone | + [...] | +--------+ + + + + | 12/17/ | Abstract | [facility] | [address], | Medical Records | | 2015 | | [place] [address] | | Review | | | | [place] | | | | | | Mailcode: [place] | | | | | | [facility] Health and | | | | | | [facility] | | | | | | [place], [place] | | | | | | [address] | | | | | | [phone] | | | +--------+ + + + [...]
--- OUTSIDE RECORDS SUMMARY | ~2019-09-03 | XMS | Encounter Summary ---
Demographics + + + | Address | [address] | | | [place] [address] | + + + | Home Phone | | + + + | Preferred Language | Unknown | + + + | Marital Status | Single | + + + | Jew Affiliation | CHR | + + + [...] Team Providers + +------+ + | Care Grave Cleaner Name | Role | Phone | + +------+ + | Meaghan Zhong MD | PCP | | + +------+ + Encounter Details +--------+ + + + + | Date | Type | Department | Care Team | Description | +--------+ + + + + | 12/27/ | Telephone | [facility] | Bhargav Jamison MD | | | 2017 | | [place] [facility] [address] | [address] | | | | | [place] | [address] [place], | | | | | Mailcode: [place] | [place] [address] | | | | | [facility] and | [phone] | | | | | [facility], [facility] [address] | | | | | | [place], [place] | | | | | | [address] | | | | | | [phone] | | | +--------+ + + + [...]
--- OUTSIDE RECORDS SUMMARY | ~2019-09-03 | XMS | Clinical Summary ---
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 | 06/21/2014 [...] + + + | Vaccine: | | 08/14/2015, 07/03/2015, | | | Pneumococcal 19-64 | 6 | 07/03/2015 | | | (1 of 1 - PPSV23) | | | | + + + + + | Vaccine: | | | | | Dtap/Tdap/Td (1 - | 9 | | | | Tdap) | | | | + + + + + | Primary Care | | 01/21/2016, 03/22/2014 | | | Outreach (Intense | 6 | | | | Risk) | | | | + + + + + | Vaccine: Influenza | | 08/19/2016, 08/14/2015, | | | (#1) | 9 | 07/03/2015, Additional history [...] | [employer] | [facility] | [id number] | | [phone] | | [facility] | [...] [address] | | Jason | al/Fam | | 1971 | [phone] | [place] [address] | | | david | | | 0 (Home) | | + +--------+ +--------+ + + Advance Directives + + + + + | Type | Date Recorded | Patient | Explanation | | | | First Assistant Manager | | + + + + + | Power of | | | | | Rn Clinician | | | | + + + + + | Advance | 04/09/2016 9:38 | | | | Directive | AM | | | + + + + +
--- OUTSIDE RECORDS SUMMARY | ~2019-09-03 | XMS | Encounter Summary ---
Demographics + + + | Address | [address] | | | [place] [address] | + + + | Home Phone [...] | Organization | [facility] [place] | | | and [place] [...] Team Providers + +------+ + | Care Blow Torch Operator Name | Role | Phone | + +------+ + | No, Physician | PCP | Unavailable | + +------+ + Encounter Details +--------+ + + + + | Date | Type | Department | Care Team | Description | +--------+ + + + + | 08/18/ | [facility] | [place] LOYA | Clement Ventura | | | 2013 | Encounter | HOSPITAL EMERGENCY | MD [address] | | | | | CENTER [address] | [facility] | | | | | DR [place], [place] | [place] [address] | | | | | [address] | [phone] | | | | | [phone] | | | +--------+ + + + [...] - 1.030 | EXTERNAL | | | [place], | | | LAB | | | [...]
--- OUTSIDE RECORDS SUMMARY | ~2019-09-03 | XMS | Encounter Summary ---
Demographics + + + | Address | [address] | | | [place] [address] | + + + | Home Phone [...] Author | [facility] [place] | | | and [place] | + + + | Organization | [facility] | | | and [...] Providers + +------+ + | Care Insurance Risk Analyst Name | Role | Phone | [...] | | | disease | | [address] | | | | | without | | [place], | | | | | complication | | [place] [address] | | | | | , | | Phone: | | | | | unspecified | | [phone] | | | | | gastrointest | | Fax: | | | | | inal tract | | [phone] | | | | | location | [...] | | | | | | | [place] | | | | | | | COLONOSCOPY | | | | | | | FLX DX | | | | | | | W/COLLJ SPEC | | | | | | | WHEN PFRMD | | | | | | | [place] | | | | | | | [...] + + | 04/09/ | Hospital | [facility] | Carmelo Patterson MD | Gastroesophageal | | 2016 | Encounter | MED CTR MP INTRA OP | [address] | reflux disease, | | | | [address] | [place] | esophagitis presence | | | | [place] | [address] | not specified | | | | [address] | [phone] | (Primary Dx); | | | | [phone] | | Crohn's disease with | | [...] the physician who did your procedure at [phone] if you have any questions or experience any of the following: ? Increasing abdominal pain, nausea, or vomiting. ? Chills and fever over 101F. ? New abdominal swelling or bloating. ? Signs of rectal bleeding (black or red stool). If you cannot get a hold of your physician, then call the [facility] [phone] . If necessary, report to the Emergency Department at [facility]. Quit smoking: If you smoke [...] dependence | | | | | | ([facility]) | | + +--------+ + + [...] Mendez Date: | PROVATION | | 04/09/2016 9:17 AMMRN: [id number] #: [id number] of : | | | 1970Admit Type: AmbulatoryAge: 45Room: [facility] 02Gender: MaleNote | | | Status: FinalizedAttending MD: Carmelo Patterson, [facility]cedure: | | | Upper GI endoscopyIndications: Nausea with | | | vomitingProviders: Carmelo Patterson MD, Nini | | | ADITI Stewart, Kaylen Hernandez RN, Iraida | | | Stepan, Welder/Fitter, Nima Lynn MD | | | (Anesthesia [...] the | | | anesthesiologist and the mechanical manufacturing technician in the pre-procedure area in the [...] AMScope Out: 9:46:40 AM | | | [facility], [address] [place] [address] | | | [id number] | | | instructions were provided to [...] |Scope Out: 9:46:40 AM | | | [facility], [address] [place] [address] | | | [address] | | + + -+ + +---------+ [...] | PROVATION | | 04/09/2016 9:15 AMMRN: [id number] #: [id number] of : | | | 1970Admit Type: AmbulatoryAge: 45Room: [facility] 02Gender: MaleNote | | | Status: FinalizedAttending MD: Carmelo Patterson, [facility]rocedure: | | | ColonoscopyIndications: Follow-up of Crohn's disease of | | | the colonProviders: Carmelo Patterson MD, Lorlyn | | | ADITI Stewart, Kaylen Hernandez RN, Iraida | | | Stepan, Welder/Fitter, Nima Lynn MD | | | (Anesthesia [...] the | | | anesthesiologist and the mechanical manufacturing technician in the pre-procedure area in the [...] | | 9:53:11 AMScope Out: 10:24:21 AM [facility] | | | Center, [address] [place] [address] | | | - High fiber diet [...] |Scope Out: 10:24:21 AM | | | [facility], [address] [place] [address] | | | [address] | | + + -+ + +---------+ + + | Performing | Address | City/State/[facility] Hospitalcode | Phone Number | | Organization [...] | | | endoscopic correlation is recommended. ARW:[facility]:C2NR GROSS | | | DESCRIPTION: Received in nine parts. A. Received in formalin | | | labeled "Synagogue Newton" and "duodenal bx" on the requisition are | | | eight pink-owens tissue fragments measuring from 0.1-0.7 cm, submitted, | | | all in (A1). B. Received in formalin labeled "Synagogue [place]" | | | and "gastric bx" on the requisition are two pink-owens tissue fragments | | | measuring from 0.35-0.55 cm, submitted, all in (B1). C. Received | | | in formalin labeled "Synagogue Newton" and "esophagus bx" on the | | | requisition are seven pink-owens tissue fragments measuring from | | | <0.1-0.4 cm, submitted, all in (C1). D. Received in formalin | | | labeled "Synagogue Newton" and "right colon bx" on the requisition | | | are four pink-owens tissue fragments measuring from 0.2-0.5 cm, | | | submitted, all in (D1). | | | E. Received in formalin | | | labeled "Synagogue Newton" and "transverse colon bx" on the | | | requisition are four pink-owens tissue fragments measuring from 0.4-0.6 | | | cm, submitted all into (E1). F. Received in formalin labeled | | | "Synagogue Newton" and "descending colon bx" on the requisition are | | | five pink-owens tissue fragments measuring from 0.1-0.8 cm, submitted, | | | all in (F1). G. Received in formalin labeled "Synagogue Newton" | | | and "sigmoid colon bx" on the requisition are six pink-owens tissue | | | fragments measuring from 0.2-0.5 cm submitted, all in (G1). H. | | | Received in formalin labeled "Synagogue Newton" and "rectal bx" on | | | the requisition are seven pink-owens tissue fragments measuring from | | | 0.25-0.5 cm, submitted, all in (H1). I. Received in formalin | | | labeled "Synagogue Newton" and "sigmoid polyp bx" on the requisition | | | are five red-brown fragments measuring from 0.1-0.4 cm, submitted, all | | | in (I1). ka:CLR:[facility] PERFORMING LABORATORY: Tissue processing | | | and slide preparation were performed by [facility], [address] | | [facility], [place] [address] (Quarry Plant Crusher Operator: Agusto | | | Jayda Mccracken CLIA#: [id number]). Professional interpretation was | | | performed by [facility], [address] [place] [address] | | | [place] [address] (Quarry Plant Crusher Operator: Agusto Mccracken M.D.; CLIA#: | | | [id number]). Diagnostician: Ruiz Barrett DO Pathologist | | [...] PDT | | | | | RADHA COTREZ: go | | | | | | | override, | | | | | | + +-------+ +------+---+---+ +---+---+ | | | +---+---+ documented in this encounter
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
--- OUTSIDE RECORDS SUMMARY | ~2019-09-03 | XMS | Encounter Summary ---
Demographics + + + | Address | [address] | | | [place] [address] | + + + | Home Phone [...] + + | Organization | [facility] [place] | | | and [place] [...] Team Providers + +------+ + | Care Group Leader Semiconductor Testing Name | Role | Phone | + +------+ + | No, Physician | PCP | Unavailable | + +------+ + Encounter Details +--------+ + + + + | Date | Type | Department | Care Team | Description | +--------+ + + + + | 07/03/ | Hospital | [facility] | Emily Green, | | | 2014 | Encounter | [facility] | DO [address] | | | | | MEDICAL CLINIC [address] | [place] [address] | | | | | [address] [place], | [phone] | | | | | [place] [address] | | | | | | [phone] | | | +--------+ + + + [...]
--- OUTSIDE RECORDS SUMMARY | ~2019-09-03 | XMS | Encounter Summary ---
Demographics + + + | Address | [address] | | | [place] [address] | + + + | Home Phone [...] | [facility] [place] | [...] Team Providers + +------+ + | Care Distributor Sales Consultant Name | Role | Phone | [...] [address] [place] | [place] [address] | | | | | [place], [place] | [phone] | | | | | [address] | | | | | | [phone] | | | +--------+ + + + [...]
--- OUTSIDE RECORDS SUMMARY | ~2019-09-03 | XMS | Encounter Summary ---
Demographics + + + | Address | [address] | | | [place] [address] | + + + | Home Phone [...] Team Providers + +------+ + | Care Life Guard Name | Role | Phone | + [...] from Patient | | 2017 | | [place] [facility] [address] | | | | | | [address] | | | | | | Mailcode: [place] | | | | | | for Health and | | | | | | [facility], [facility] | | | | | | [place], [place] | | | | | | [address] | | | | | | [phone] | | | +--------+ + + + [...]
--- OUTSIDE RECORDS SUMMARY | ~2019-09-03 | XMS | Encounter Summary ---
Demographics + + + | Address | [address] | | | [place] [address] | + + + | Home Phone | | + + + | Preferred Language | Unknown | + + + | Marital Status | Single | + + + | Hindu Affiliation | 1013 | + + + | Race | Unknown | + + + | Ethnic Group | Unknown | + + + Author + + + | Author | [facility] | | | and [place] | + + + | Organization | [facility] | | | and [...] Team Providers + +------+ + | Care Program Checker Name | Role | Phone | + +------+ + | No, Physician | PCP | Unavailable | + +------+ + Encounter Details +--------+ + + + + | Date | Type | Department | Care Team | Description | +--------+ + + + + | 05/18/ | [facility] | [place] LO[place] | Clement Ventura | | | 2013 | Encounter | HOSPITAL EMERGENCY | [address] | | | | | CENTER [address] | [facility] | | | | | DR [place], [place] | [employer] [place] [address] | | | | | [address] | [phone] | | | | | [phone] | | | +--------+ + + + [...] - 1.030 | EXTERNAL | | | [place], | | | LAB | | | [...]
--- OUTSIDE RECORDS SUMMARY | ~2019-09-03 | XMS | Encounter Summary ---
Demographics + + + | Address | [address] | | | [place] [address] | + + + | Home Phone [...] + | Organization | [facility] | [...] Team Providers + +------+ + | Care Planograph Operator Name | Role | Phone | [...] [address] | [place] [address] | | | | | [place], [place] | [phone] | | | | | [address] | | | | | | [phone] | | | +--------+ + + + [...]
--- OUTSIDE RECORDS SUMMARY | ~2019-09-03 | XMS | Encounter Summary ---
Demographics + + + | Address | [address] | | | [place] [address] | + + + | Home Phone [...] | Organization | [facility] [...] Team Providers + +------+ + | Care Virtual Recruiter Name | Role | Phone | [...] | HOSPITAL XRAY [address] | MD [address] | | | | | [place] [address] | [address] | | | | | [place], [place] | [place] [address] | | | | | [address] | [phone] | | | | | [phone] | | | +--------+ + + + [...]
--- OUTSIDE RECORDS SUMMARY | ~2019-09-03 | XMS | Encounter Summary ---
Demographics + + + | Address | [address] | | | [place] [address] | + + + | Home Phone [...] Providers + +------+ + | Care Sales Attendant Building Materials Name | Role | Phone | + [...] | | 2016 | | Center at [facility] [address] | | | | | | [address] | | | | | | Mailcode: Center | | | | | | for Health and | | | | | | Healing, Building 2 | | | | | | [facility] [place] | | | | | | [address] | | | | | | [phone] | | | +--------+ + + + [...]
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
--- OUTSIDE RECORDS SUMMARY | ~2019-09-03 | XMS | Encounter Summary ---
Demographics + + + | Address | [address] | | | [place] [address] | + + + | Home Phone [...] + + | Organization | [facility] | | | and [place] | [...] Providers + +------+ + | Care Pattern Mechanic Name | Role | Phone | [...] 2017 | | GASTROENTEROLOGY | [address] [facility] | | | | | [address] [facility] | [place], [place] | | | | | [address] | [address] | | | | | [address] | [phone] | | | | | [phone] | | | +--------+--------+ + + + [...]
--- OUTSIDE RECORDS SUMMARY | ~2019-09-03 | XMS | Encounter Summary ---
Demographics + + + | Address | [address] | | | [place] [address] | + + + | Home Phone [...] | Organization | [facility] [...] Team Providers + +------+ + | Care Paraprofessional Aide Teacher Name | Role | Phone | [...] | [address] [place], [place] | [place] [address] | | | | | [address] | [phone] | | | | | [phone] | | | +--------+ + + + [...]
--- OUTSIDE RECORDS SUMMARY | ~2019-09-03 | XMS | Encounter Summary ---
Demographics + + + | Address | [address] | | | [place] [address] | + + + | Home Phone [...] Team Providers + +------+ + | Care Ice Sculptor Name | Role | Phone | + [...] Medication Refill | | 2014 | | [place] [address] | | | | | | [address] | | | | | | Mailcode: [place] | | | | | | [facility] and | | | | | | [facility] | | | | | | [place], [place] | | | | | | [address] | | | | | | [phone] | | | +--------+ + + + [...]
--- OUTSIDE RECORDS SUMMARY | ~2019-09-03 | XMS | Encounter Summary ---
Demographics + + + | Address | [address] | | | [place] [address] | + + + | Home Phone [...] Organization | [facility] | | [...] Team Providers + +------+ + | Care Urology Nurse Name | Role | Phone | + +------+ + | Emily Green DO | PCP | | + +------+ + Encounter Details +--------+ + + + + | Date | Type | Department | Care Team | Description | +--------+ + + + + | 04/10/ | Orders Only | [facility] | Carmelo Patterson MD | Gastroesophageal | | 2016 | | GASTROENTEROLOGY | [address] | reflux disease, | | | | [address] [facility] | [place], [place] | esophagitis presence | | | | [address] [place], [place] | [address] | not specified | | | | [address] | [phone] | (Primary Dx) | | | | [phone] | | | +--------+ + + + [...] 20mg qAM #90 with 3 refills at [facility]. documented in this encounter Plan of Treatment Not on filedocumented as of this encounter Visit Diagnoses + + | Diagnosis | + + | Gastroesophageal reflux disease, esophagitis presence not specified - Primary | + + documented in this encounter"
--- OUTSIDE RECORDS SUMMARY | ~2019-09-03 | XMS | Encounter Summary ---
Demographics + + + | Address | [address] | | | [place] [address] | + + + | Home Phone [...] Team Providers + +------+ + | Care Trade Union Official Name | Role | Phone | + +------+ + | Meaghan Zohng MD | PCP | | + +------+ + Reason for Visit + + + | Reason | Comments | + + + | Medical Records | 04/09/2016 EGD/Colonoscopy reports and Pathology report - | | Review | [place] | + + + Encounter Details +--------+ + + + + | Date | Type | Department | Care Team | Description | +--------+ + + + + | 04/18/ | Abstract | Digestive Health | [address], | Medical Records | | 2016 | | [place] at [facility] [address] | MD | Review (04/09/2016 | | | | [address] [place] | | EGD/Colonoscopy | | | | Mailcode: Center | | reports and | | | | for Health and | | Pathology report - | | | | [facility] | | [facility] | | | | [place], [place] | | [address] [place] | | | | [address] | | | | | | [phone] | | | +--------+ + + + [...]
--- OUTSIDE RECORDS SUMMARY | ~2019-09-03 | XMS | Encounter Summary ---
[...] Author + + + | Author | [facility] | | | and [place] | + + + | Organization | [facility] | | [...] Team Providers + +------+ + | Care Gym Instructor Name | Role | Phone | + +------+ + | No, Physician | PCP | Unavailable | + +------+ + Encounter Details +--------+ + + + + | Date | Type | Department | Care Team | Description | +--------+ + + + + | 02/21/ | Hospital | [facility] | Emily Green, | | | 2014 | Encounter | [facility] | DO [address] | | | | | MEDICAL CLINIC [address] | [place] [address] | | | | | [address] [place], | [phone] | | | | | [place] [address] | | | | | | [phone] | | | +--------+ + + + [...]
--- OUTSIDE RECORDS SUMMARY | ~2019-09-03 | XMS | Encounter Summary ---
Demographics + + + | Address | [address] | | | [place] [address] | + + + | Home Phone [...] | Author | [facility] [place] | | | and [place] | + + + | Organization | [facility] | | [...] Team Providers + +------+ + | Care Programmer Business Name | Role | Phone | + [...] | [address] [place], [place] | [place] [address] | | | | | [address] | [phone] | | | | | [phone] | | | +--------+ + + + [...]
--- OUTSIDE RECORDS SUMMARY | ~2019-09-03 | XMS | Encounter Summary ---
Demographics + + + | Address | [address] | | | [place] [address] | + + + | Home Phone [...] | Organization | [facility] [...] Team Providers + +------+ + | Care Motor Vehicle Assembler Name | Role | Phone | [...] | | CENTER [address] | [facility] | | | | | [address] [place], [place] | [place] [address] | | | | | [address] | [phone] | | | | | [phone] | | | +--------+ + + + [...]
--- OUTSIDE RECORDS SUMMARY | ~2019-09-03 | XMS | Encounter Summary ---
Demographics + + + | Address | [address] | | | [place] [address] | + + + | Home Phone [...] Organization | [facility] | [...] Team Providers + +------+ + | Care Textile Colorist Formulator Name | Role | Phone | + +------+ + PCP | Unavailable | + +------+ + Encounter Details +--------+ + + + + | Date | Type | Department | Care Team | Description | +--------+ + + + + | 02/06/ | Hospital | [facility] | Nima Sena | | | 2008 | Encounter | [facility] EMERG[facility]Y | MD [address] | | | | | CENTER [address] | [place] | | | | | [address] [place], [place] | [place] [address] | | | | | [address] | [phone] | | | | | [phone] | | | +--------+ + + + [...]
--- OUTSIDE RECORDS SUMMARY | ~2019-09-03 | XMS | Encounter Summary ---
Demographics + + + | Address | [address] | | | [place] [address] | + + + | Home Phone [...] Providers + +------+ + | Care Certified Emergency Vehicle Technician Name | Role | Phone | [...] Records | | 2015 | on | [place] [facility] [address] | MD | Review | | | | [address] | | | | | | Mailcode: [place] | | | | | | [facility] Health and | | | | | | [facility] | | | | | | [place], [place] | | | | | | [address] | | | | | | [phone] | | | +--------+ + + + [...]
--- OUTSIDE RECORDS SUMMARY | ~2019-09-03 | XMS | Encounter Summary ---
Demographics + + + | Address | [address] | | | [place] [address] | + + + | Home Phone [...] Organization | [facility] | | [...] Team Providers + +------+ + | Care Locksmith Name | Role | Phone | + +------+ + | No, Physician | PCP | Unavailable | + +------+ + Encounter Details +--------+ + + + + | Date | Type | Department | Care Team | Description | +--------+ + + + + | 08/14/ | Hospital | [facility] | Emily Green, | | | 2013 | Encounter | [facility] | DO [address] | | | | | MEDICAL CLINIC [address] | [place] [address] | | | | | [address] [place], | [phone] | | | | | [place] [address] | | | | | | [phone] | | | +--------+ + + + [...]
--- OUTSIDE RECORDS SUMMARY | ~2019-09-03 | XMS | Encounter Summary ---
Demographics + + + | Address | [address] | | | [place] [address] | + + + | Home Phone [...] Organization | [facility] [...] Team Providers + +------+ + | Care Shipping Weigher Name | Role | Phone | + [...] | | | | | | | [place] | | | | | | | COLONOSCOPY, | | | | | | | DIAGNOSTIC | | | | | | | [place] | | | | | | | [...] | | | | | [address] | [address] [place] | | | | | [place] | [address] | | | | | [address] | | | | | | [phone] | Roque Watson | | | | | | MD Nichole [address] | | | | | | ST [place], [place] | | | | | | [address] | | | | | | [phone] | | | | | | | [...]
--- OUTSIDE RECORDS SUMMARY | ~2019-09-03 | XMS | Encounter Summary ---
Demographics + + + | Address | [address] | | | [place] [address] | + + + | Home Phone [...] Team Providers + +------+ + | Care Fitting Room Checker Name | Role | Phone | [...] | | | | | | | [address] | | | | | | | [address]i [address] | | | | | | | [facility] | | | | | | | Hospital | | | | | | | [place], [place] | | | | | | | [address] | | | | | | | Phone: | | | | | | | [phone] | +--------+--------+ + + + + Encounter Details +--------+ + + + + | Date | Type | Department | Care Team | Description | +--------+ + + + + | 12/10/ | Emergency | [facility] Emergency | | | | 2015 | | Department [address] | | | | | | [address] | | | | | | [facility] | | | | | | [place], [place] | | | | | | [address] | | | | | | [phone] | | | +--------+ + + + [...] Lopez MD - 12/11/2015 11:18 AM PDTLocation: [facility] Caller: ADITI Glez, pt of Dr. [...] RN says Mr. Glez was last at [facility] ER in Oct and did not [...]
--- OUTSIDE RECORDS SUMMARY | ~2019-09-03 | XMS | Encounter Summary ---
Demographics + + + | Address | [address] | | | [place] [address] | + + + | Home Phone | | + + + | Preferred Language | Unknown | + + + | Marital Status | Single | + + + | Protestant Affiliation | 1013 | + + + | Race | Unknown | + + + | Ethnic Group | Unknown | + + + Author + + + | Author | [facility] [place] | | | and [place] | + + + | Organization | [facility] | | [...] Providers + +------+ + | Care Clinical Fellow Name | Role | Phone | + [...] | 11/07/ | Telephone | [facility] | Carmelo Patterson MD | Other (Reschedule | | 2015 | | GASTROENTEROLOGY | [address] | procedure) | | | | [address] [facility] | [place], [place] | | | | | [address] [place], [place] | [address] | | | | | [address] | [phone] | | | | | [phone] | | | +--------+ + + + [...]
--- OUTSIDE RECORDS SUMMARY | ~2019-09-03 | XMS | Encounter Summary ---
Demographics + + + | Address | [address] | | | [place] [address] | + + + | Home Phone [...] | [facility] | | | and [place] [...] Team Providers + +------+ + | Care Intranet Specialist Name | Role | Phone | [...] 2012 | | GASTROENTEROLOGY | [address] | care (Primary Dx) | | | | [address] | [address] [place], | | | | | [address] [place] | [place] [address] | | | | | [address] | [phone] | | | | | [phone] | | | +--------+ + + + [...] Primary Routine general medical examination at a [facility] | | care facility | + + documented in this encounter"
--- OUTSIDE RECORDS SUMMARY | ~2019-09-03 | XMS | Encounter Summary ---
Demographics + + + | Address | [address] | | | [place] [address] | + + + | Home Phone [...] | [facility] | | | and [...] Team Providers + +------+ + | Care Cutting Supervisor Name | Role | Phone | [...] | | | | [address] [facility] | [place], [place] | | | | | [address] | [address] | | | | | [address] | [phone] | | | | | [phone] | | | +--------+ + + + [...]
--- OUTSIDE RECORDS SUMMARY | ~2019-09-03 | XMS | Encounter Summary ---
Demographics + + + | Address | [address] | | | [place] [address] | + + + | Home Phone [...] + | Organization | [facility] [...] Team Providers + +------+ + | Care Blockers Skiver Name | Role | Phone | + [...] [address] | [address] [facility], | | | | | [facility], [place] | [place] [address] | | | | | [address] | [phone] | | | | | [phone] | | | +--------+ + + + [...]
--- OUTSIDE RECORDS SUMMARY | ~2019-09-03 | XMS | Encounter Summary ---
[...] Organization | [facility] [place] | | | and [place] [...] Team Providers + +------+ + | Care Roll Repairer Name | Role | Phone | [...] + + | 04/14/ | [facility] | [facility] | Carmelo Patterson MD | EGD / COLONOSCOPY | | 2013 | | MED CTR MP INTRA OP | [address] | | | | | [address] | [place] | | | | | [place] | [address] | | | | | [address] | [phone] | | | | | [phone] | | | +--------+---------+ + + + [...] the physician who did your procedure at [phone] if you have any questions or experience any of the following: Increasing abdominal pain, nausea, or vomiting. Chills and fever over 101F. New abdominal swelling or bloating. Signs of rectal bleeding (black or red stool. If you cannot get a hold of your physician, then call the [facility] [phone] . If necessary, report to the Emergency Department at [facility]. Quit smoking: If you smoke or have [...] | PROVATION | | 04/14/2014 11:49 AMMRN: [id number] #: [id number] of : | | | 1970Admit Type: AmbulatoryAge: 43Room: [facility]Gender: MaleNote | | | Status: FinalizedAttending MD: Carmelo Patterson [facility]: | | | Upper GI endoscopyIndications: Epigastric abdominal pain, | | | Nausea with vomitingProviders: Carmelo Patterson MD, | | | Monique Ling RN, Johana | | | ADITI Jerez, RUBY NORTON, Apple Sorter, Ashwin Wright MD | | | (Anesthesia [...] the anesthesiologist and the | | | cable television line technician in the pre-procedure area in the [...] On: 04/14/2014 11:49 AM | | | [facility], [address] [place] [address] | | | [address] | | | - Normal esophagus. | [...] On: 04/14/2014 11:49 AM | | | [facility], [address] [place] [address] | | | [address] | | + + -+ + + [...] | PROVATION | | 04/14/2014 11:47 AMMRN: [id number] #: [id number] of : | | | 1970Admit Type: AmbulatoryAge: 43Room: [facility] 02Gender: MaleNote | | | Status: FinalizedAttending MD: Carmelo Patterson, [facility]cedure: | | | ColonoscopyIndications: Abdominal painProviders: | | | Carmelo Patterson MD, Monique Ling RN, Johana | | | ADITI Jerez, RUBY NORTON, Apple Sorter, Ashwin | | | MD Adriana (Anesthesia [...] the anesthesiologist and the | | | cable television line technician in the pre-procedure area in the [...] On: 04/14/2014 | | | 11:47 AM [facility], [address] [facility], | | | [place] [address] | | | colon. No specimens collected. [...] On: 04/14/2014 11:47 AM | | | [facility], [address] [facility], [place], [place] | | | [address] | | + + -+ + + [...]
--- OUTSIDE RECORDS SUMMARY | ~2019-09-03 | XMS | Encounter Summary ---
Demographics + + + | Address | [address] | | | [place] [address] | + + + | Home Phone [...] Team Providers + +------+ + | Care Lead Qa Analyst Name | Role | Phone | + +------+ + | Meaghan Zhong MD | PCP | | + +------+ + Reason for Visit +--------+ + | Reason | Comments | +--------+ + | Other | Pt Dismissed from [facility] | +--------+ + Encounter Details +--------+ + + + + | Date | Type | Department | Care Team | Description | +--------+ + + + + | 06/19/ | Telephone | [facility] | [address], | Other (Pt Dismissed | | 2017 | | Center at [address] | MD | from [facility]) | | | | [address] | | | | | | Mailcode: Center | | | | | | for Health and | | | | | | [facility], Building [address] | | | | | | [place], [place] | | | | | | [address] | | | | | | [phone] | | | +--------+ + + + [...]
--- OUTSIDE RECORDS SUMMARY | ~2019-09-03 | XMS | Encounter Summary ---
Demographics + + + | Address | [address] | | | [place] [address] | + + + | Home Phone [...] [facility] [...] Team Providers + +------+ + | Care Administration Professional Name | Role | Phone | + +------+ + | No, Physician | PCP | Unavailable | + +------+ + Encounter Details +--------+ + + + + | Date | Type | Department | Care Team | Description | +--------+ + + + + | 09/13/ | Hospital | [facility] | Emily Green, | | | 2014 | Encounter | [facility] | DO [address] | | | | | MEDICAL CLINIC [address] | [facility] [address] | | | | | [address] [place], | [phone] | | | | | [place] [address] | | | | | | [phone] | | | +--------+ + + + [...]
--- OUTSIDE RECORDS SUMMARY | ~2019-09-03 | XMS | Encounter Summary ---
Demographics + + + | Address | [address] | | | [place] [address] | + + + | Home Phone [...] + | Organization | [facility] | | | and [...] Team Providers + +------+ + | Care Carpenters Name | Role | Phone | + +------+ + | No, Physician | PCP | Unavailable | + +------+ + Encounter Details +--------+ + + + + | Date | Type | Department | Care Team | Description | +--------+ + + + + | 11/21/ | Hospital | [facility] | Emily Green, | | | 2016 | Encounter | [facility] | DO [address] | | | | | MEDICAL CLINIC [address] | [place] [address] | | | | | [address] [place], | [phone] | | | | | [place] [address] | | | | | | [phone] | | | +--------+ + + + [...]
--- OUTSIDE RECORDS SUMMARY | ~2019-09-03 | XMS | Encounter Summary ---
Demographics + + + | Address | [address] | | | [place] [address] | + + + | Home Phone [...] Team Providers + +------+ + | Care Fruit Picker Name | Role | Phone | + [...] MD | | | | | [address] | | | | | | Mailcode: [place]red | | | | | | [facility] and | | | | | | [place] [address] | | | | | | [place], [place] | | | | | | [address] | | | | | | [phone] | | | +--------+ + + + [...]
--- OUTSIDE RECORDS SUMMARY | ~2019-09-03 | XMS | Encounter Summary ---
Demographics + + + | Address | [address] | | | [place] [address] | + + + | Home Phone [...] | Organization | [facility] | | | and [place] [...] Team Providers + +------+ + | Care Conveyancer Name | Role | Phone | + [...] [address] [place] | [place] [address] | | | | | [place], [place] | [phone] | | | | | [address] | | | | | | [phone] | | | +--------+ + + + [...]
--- OUTSIDE RECORDS SUMMARY | ~2019-09-03 | XMS | Encounter Summary ---
Demographics + + + | Address | [address] | | | [place] [address] | + + + | Home Phone [...] + + + | Author | [facility] | + + + | Organization | [facility] | + + + | Address | Unknown | + + + | Phone | Unavailable | + + + Support + + +---------+ + | Name | Relationship | Address | Phone | + + +---------+ + | Thalia Armani | ECON | Unknown | | + + +---------+ + Care Team Providers + +------+ + | Care City Sanitarian Name | Role | Phone | + [...] | | | | | [place], | | | | | | [place] [address] | | | +--------+ + + + [...] | + + | 09/17/2007 11:13 AM [facility] Anesthesia PostOp Report | | | | Patient: RACHID BANGURA [facility] Rec: [id number] Sex M Bdate: 1970 | | Date/Time Data | | Entered Into [facility] | | Anesth PostOp | | Surgery Date [id number] 09/17/07 11:13 | | Anesthesiologist ODIN RUSSELL 09/17/07 11:13 | | Resident Anesthesiolog KARIME TORRES 09/17/07 11:13 | | | + + documented in this encounter Visit Diagnoses Not on filedocumented in this encounter"
--- OUTSIDE RECORDS SUMMARY | ~2019-09-03 | XMS | Encounter Summary ---
Demographics + + + | Address | [address] | | | [place] [address] | + + + | Home Phone [...] Organization | [facility] | | [...] Providers + +------+ + | Care Inspector Insulation Name | Role | Phone | + +------+ + | No, Physician | PCP | Unavailable | + +------+ + Reason for Visit + + + | Reason | Comments | + + + | Appointment | move up colonoscopy | + + + Encounter Details +--------+ + + + + | Date | Type | Department | Care Team | Description | +--------+ + + + + | 05/17/ | Telephone | [facility] | Carmelo Patterson MD | Appointment (move up | | 2014 | | GASTROENTEROLOGY | [address] | colonoscopy) | | | | [address] [facility] | [place], [place] | | | | | [address] [place] | [address] | | | | | [address] | [phone] | | | | | [phone] | | | +--------+ + + + [...]
--- OUTSIDE RECORDS SUMMARY | ~2019-09-03 | XMS | Encounter Summary ---
Demographics + + + | Address | [address] | | | [place] [address] | + + + | Home Phone [...] | Organization | [facility] [place] | | | and [place] | [...] Team Providers + +------+ + | Care Fish Cutting Machine Operator Name | Role | Phone [...] | | | | | site | [place], [place] | [place] [address] | | | | | Abdominal | [address] | Phone: | | | | | pain, | Phone: | [phone] | | | | | unspecified | [phone] | Fax: | | | | | site | Fax: | [phone] | | | | | Procedures | [phone] | | | | | | [place] | | | | | | | COLONOSCOPY, | | | | | | | DIAGNOSTIC | | | | | | | [place] | | | | | | | COLONOSCOPY, | | | | | | | BIOPSY [place] | | | | | | | [...] + + | 05/11/ | Telephone | [facility] | Carmelo Patterson MD | Appointment | | 2013 | | GASTROENTEROLOGY | [address] | (reschedule | | | | [address] [facility] | [place], [place] | colonoscopy due to | | | | [address] [place] | [address] | poor prep) | | | | [address] | [phone] | | | | | [phone] | | | +--------+ + + + [...]
--- OUTSIDE RECORDS SUMMARY | ~2019-09-03 | XMS | Encounter Summary ---
Demographics + + + | Address | [address] | | | [place] [address] | + + + | Home Phone [...] Team Providers + +------+ + | Care Hair Rooting Machine Operator Name | Role | Phone [...] Records | | 2015 | on | [place] [facility] [address] | MD | Review | | | | [address] | | | | | | Mailcode: [place] | | | | | | [facility] and | | | | | | [facility] | | | | | | [place], [place] | | | | | | [address] | | | | | | [phone] | | | +--------+ + + + [...]
--- OUTSIDE RECORDS SUMMARY | ~2019-09-03 | XMS | Clinical Summary ---
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
--- OUTSIDE RECORDS SUMMARY | ~2019-09-03 | XMS | Encounter Summary ---
Demographics + + + | Address | [address] | | | [place] [address] | + + + | Home Phone | | + + + | Preferred Language | Unknown | + + + | Marital Status | Single | + + + | Hindu Affiliation | 1013 | + + + | Race | Unknown | + + + | Ethnic Group | Unknown | + + + Author + + + | Author | [facility] | | | and [place] | + + + | Organization | [facility] | | | and [...] Team Providers + +------+ + | Care Recruiting Internship Name | Role | Phone | [...] | [address] [place] | [address] [facility], | | | | | [facility], [place] | [place] [address] | | | | | [address] | [phone] | | | | | [phone] | | | +--------+ + + + [...]
--- OUTSIDE RECORDS SUMMARY | ~2019-09-03 | XMS | Encounter Summary ---
Demographics + + + | Address | [address] | | | [place] [address] | + + + | Home Phone [...] | Organization | [facility] | | | [...] Team Providers + +------+ + | Care Headwaitress Name | Role | Phone | + +------+ + | No, Physician | PCP | Unavailable | + +------+ + Encounter Details +--------+ + + + + | Date | Type | Department | Care Team | Description | +--------+ + + + + | 11/17/ | Hospital | [facility] | Emily Green, | | | 2014 | Encounter | [facility] | DO [address] | | | | | MEDICAL CLIN[address] | [facility] [place] [address] | | | | | [address] [place], | [phone] | | | | | [place] [address] | | | | | | [phone] | | | +--------+ + + + [...]
--- OUTSIDE RECORDS SUMMARY | ~2019-09-03 | XMS | Encounter Summary ---
Demographics + + + | Address | [address] | | | [place] [address] | + + + | Home Phone [...] | Author | [facility] | | | and [place] | + + + | Organization | [facility] | | | [...] | | | | [address] [facility] | [place], [place] | | | | | [address] | [address] | | | | | [address] | [phone] | | | | | [phone] | | | +--------+ + + + [...]
--- OUTSIDE RECORDS SUMMARY | ~2019-09-03 | XMS | Encounter Summary ---
Demographics + + + | Address | [address] | | | [place] [address] | + + + | Home Phone [...] | Organization | [facility] | | | and [...] Team Providers + +------+ + | Care High Climber Name | Role | Phone | + +------+ + | Emily Green DO | PCP | | + +------+ + Encounter Details +--------+ + + + + | Date | Type | Department | Care Team | Description | +--------+ + + + + | 02/17/ | Hospital | [facility] | Emily Green, | | | 2016 | Encounter | [facility] | DO [address] [place] | | | | | MEDICAL CLIN[address] | [facility] [place] [address] | | | | | [address] [place], | [phone] | | | | | [place] [address] | | | | | | [phone] | | | +--------+ + + + [...]
--- OUTSIDE RECORDS SUMMARY | ~2019-09-03 | XMS | Encounter Summary ---
Demographics + + + | Address | [address] | | | [place] [address] | + + + | Home Phone [...] Organization | [facility] [...] Team Providers + +------+ + | Care Hot Saw Helper Name | Role | Phone | + +------+ + | Emily Green DO | PCP | | + +------+ + Encounter Details +--------+ + + + + | Date | Type | Department | Care Team | Description | +--------+ + + + + | 08/19/ | Hospital | [facility] | Emily Grene, | | | 2016 | Encounter | [facility] | DO [address] | | | | | MEDICAL CLIN[address] | [facility] [place] [address] | | | | | [address] [place], | [phone] | | | | | [place] [address] | | | | | | [phone] | | | +--------+ + + + [...]
--- OUTSIDE RECORDS SUMMARY | ~2019-09-03 | XMS | Encounter Summary ---
Demographics + + + | Address | [address] | | | [place] [address] | + + + | Home Phone [...] Providers + +------+ + | Care Cloth Carrier Name | Role | Phone | + [...] Appointment Question | | 2016 | | [place] [facility] [address] | MD | | | | | [address] | | | | | | Mailcode: [place] | | | | | | [facility] and | | | | | | [facility] 2 | | | | | | [place], [place] | | | | | | [address] | | | | | | [phone] | | | +--------+ + + + [...]
--- OUTSIDE RECORDS SUMMARY | ~2019-09-03 | XMS | Encounter Summary ---
Demographics + + + | Address | [address] | | | [place] [address] | + + + | Home Phone [...] | [facility] | | [...] Providers + +------+ + | Care Saw Superintendent Name | Role | Phone | + +------+ + | No, Physician | PCP | Unavailable | + +------+ + Encounter Details +--------+ + + + + | Date | Type | Department | Care Team | Description | +--------+ + + + + | 11/16/ | Orders Only | [facility] | Carmelo Patterson MD | Abdominal pain | | 2015 | | GASTROENTEROLOGY | [address] | (Primary Dx); | | | | [address] [facility] | [place], [place] | Crohn's disease, | | | | [address] | [address] | unspecified | | | | [address] | [phone] | complication (HCC) | | | | [phone] | | | +--------+ + + + [...]
--- OUTSIDE RECORDS SUMMARY | ~2019-09-03 | XMS | Encounter Summary ---
Demographics + + + | Address | [address] | | | [place] [address] | + + + | Home Phone [...] Organization | [facility] | | [...] Team Providers + +------+ + | Care Architectural Inspector Name | Role | Phone | [...] | | | | [address] | [place], [place] | | | | | [address] | [address] | | | | | [address] | [phone] | | | | | [phone] | | | +--------+ + + + [...] encounter Progress Notes Saritha Hickman RN - 04/28/2016 2:43 PM PDTResults letter mailed to patient and PCP; reca ll for repeat colon in 2 years for dysplasia surveillance and Crohn's. documented in this encounter Plan of Treatment Not on filedocumented as of this encounter Visit Diagnoses Not on filedocumented in this encounter"
--- OUTSIDE RECORDS SUMMARY | ~2019-09-03 | XMS | Encounter Summary ---
Demographics + + + | Address | [address] | | | [place] [address] | + + + | Home Phone [...] | [facility] [...] Team Providers + +------+ + | Care Online Facilitator Name | Role | Phone | + [...] | [address] [place], [place] | [place] [address] | | | | | [address] | [phone] | | | | | [phone] | | | +--------+ + + + [...]
--- OUTSIDE RECORDS SUMMARY | ~2019-09-03 | XMS | Encounter Summary ---
Demographics + + + | Address | [address] | | | [place] [address] | + + + | Home Phone [...] [facility] | | [...] Team Providers + +------+ + | Care Falafel Cart Cook Name | Role | Phone | [...] | | | [address] [facility] | [place], [place] | Crohn's disease, | | | | [address] | [address] | unspecified | | | | [address] | [phone] | complication (HCC) | | | | [phone] | | | +--------+ + + + [...]
--- OUTSIDE RECORDS SUMMARY | ~2019-09-03 | XMS | Encounter Summary ---
Demographics + + + | Address | [address] | | | [place] [address] | + + + | Home Phone [...] Team Providers + +------+ + | Care Radiologic Technologist Mammogram Name | Role | Phone | + [...] from Patient | | 2017 | | [place] [facility] [address] | | | | | | [address] | | | | | | Mailcode: [place] | | | | | | for Health and | | | | | | [facility] 2 | | | | | | [place], [place] | | | | | | [address] | | | | | | [phone] | | | +--------+ + + + [...]
--- OUTSIDE RECORDS SUMMARY | ~2019-09-03 | XMS | Encounter Summary ---
Demographics + + + | Address | [address] | | | [place] [address] | + + + | Home Phone [...] + | Organization | [facility] [...] Providers + +------+ + | Care Global Human Resources Director Name | Role | Phone | [...] | | OFFICE [address] | [address] [facility] [place], | | | | | [address] [place], [place] | [place] [address] | | | | | [address] | [phone] | | | | | [phone] | | | +--------+ + + + [...]
--- OUTSIDE RECORDS SUMMARY | ~2019-09-03 | XMS | Encounter Summary ---
Demographics + + + | Address | [address] | | | [place] [address] | + + + | Home Phone [...] | [facility] | | | and [place] | [...] Team Providers + +------+ + | Care Scrap Iron Cutter Name | Role | Phone | + +------+ + | No, Physician | PCP | Unavailable | + +------+ + Encounter Details +--------+ + + + + | Date | Type | Department | Care Team | Description | +--------+ + + + + | 08/14/ | Hospital | [facility] | Emily Green, | | | 2014 | Encounter | [facility] | DO [address] [place] | | | | | MEDICAL CLIN[address] | [place] [address] | | | | | [address] [place], | [phone] | | | | | [place] [address] | | | | | | [phone] | | | +--------+ + + + [...]
--- OUTSIDE RECORDS SUMMARY | ~2019-09-03 | XMS | Encounter Summary ---
Demographics + + + | Address | [address] | | | [place] [address] | + + + | Home Phone [...] | [facility] | | [...] Team Providers + +------+ + | Care Paper Cutting Machine Operator Name | Role | [...] | | [address] [place], [place] | [place] [address] | | | | | [address] | [phone] | | | | | [phone] | | | +--------+ + + + [...]
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
--- OUTSIDE RECORDS SUMMARY | ~2019-09-03 | XMS | Encounter Summary ---
Demographics + + + | Address | [address] | | | [place] [address] | + + + | Home Phone [...] + | Author | [facility] | | | and [place] | + + + | Organization | [facility] | | | and [place] [...] Team Providers + +------+ + | Care Chucker Name | Role | Phone | + [...] | | OFFICE [address] | [address]TH [facility] [place], | | | | | [address] [place], [place] | [place] [address] | | | | | [address] | [phone] | | | | | [phone] | | | +--------+ + + + [...]
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
--- OUTSIDE RECORDS SUMMARY | ~2019-09-03 | XMS | Encounter Summary ---
Demographics + + + | Address | [address] | | | [place] [address] | + + + | Home Phone [...] Team Providers + +------+ + | Care Cleaning Supervisor Name | Role | Phone | [...] Refill Request | | 2015 | | [place] [facility] [address] | | Radha) | | | | [address] | | | | | | Mailcode: Center | | | | | | [facility] Health and | | | | | | [facility] 2 | | | | | | [place], [place] | | | | | | [address] | | | | | | [phone] | | | +--------+--------+ + + + [...]
--- OUTSIDE RECORDS SUMMARY | ~2019-09-03 | XMS | Encounter Summary ---
Demographics + + + | Address | [address] | | | [place] [address] | + + + | Home Phone | | + + + | Preferred Language | Unknown | + + + | Marital Status | Single | + + + | Mormonism Affiliation | 1013 | + + + | Race | Unknown | + + + | Ethnic Group | Unknown | + + + Author + + + | Author | [facility] | | | and [place] | + + + | Organization | [facility] [...] Providers + +------+ + | Care Machine Maintenance Repairer Name | Role | Phone | [...] | [address] [place], [place] | [place] [address] | | | | | [address] | [phone] | | | | | [phone] | | | +--------+ + + + [...]
--- OUTSIDE RECORDS SUMMARY | ~2019-09-03 | XMS | Encounter Summary ---
Demographics + + + | Address | [address] | | | [place] [address] | + + + | Home Phone [...] Organization | [facility] [...] Providers + +------+ + | Care Supervisor Cutting Department Name | Role | Phone | + +------+ + | Emily Green DO | PCP | | + +------+ + Encounter Details +--------+ + + + + | Date | Type | Department | Care Team | Description | +--------+ + + + + | 02/17/ | Hospital | [facility] | Emily Green, | | | 2016 | Encounter | [facility] | DO [address] [place] | | | | | MEDICAL CLINIC [address] | [place] [address] | | | | | [address] [place], | [phone] | | | | | [place] [address] | | | | | | [phone] | | | +--------+ + + + [...]
--- OUTSIDE RECORDS SUMMARY | ~2019-09-03 | XMS | Encounter Summary ---
Demographics + + + | Address | [address] | | | [place] [address] | + + + | Home Phone [...] Team Providers + +------+ + | Care Coal Hiker Name | Role | Phone | + [...] | Rd Mailcode: [id number] | [address] [place], | | | | | [place], [place] | [place] [address] | | | | | [address] | [phone] | | | | | [phone] | | | +--------+ + + + [...] | + + + + + | [facility] | [address] | [place] [address] | | | PATHOLOGY | [address] | | | + + + + + | [facility] | [address] | [place] [address] | | | PATHOLOGY | [address] [...] + + | [facility] DEPARTMENT OF | [address] | [place] [address] | | | PATHOLOGY | [address] | | | + + + + + | [facility] DEPARTMENT OF | [address] | [place] [address] | | | PATHOLOGY | [address] [...] | + + + + + | [facility] DEPARTMENT OF | [address] | [place] [address] | | | PATHOLOGY | [address] | | | + + + + + | [facility] DEPARTMENT OF | [address] | [place] [address] | | | PATHOLOGY | [address] | | | + + + + + BASIC METABOLIC SET (09/19/2007 7:57 AM PST) + +---------+ + + + | Component | Value | Ref Range | Performed | Pathologist | | | | | At | Signature | + +---------+ + + + | GLUCOSE, | 90 | 60 - 99 mg/dL | [facility] | | | PLASMA | | | [...] + | [facility] DEPARTMENT OF | [address] [facility] | [place] [address] | | | PATHOLOGY | [address] | | | + + + + + | [facility] DEPARTMENT OF | [address] [facility] | [place] [address] | | | PATHOLOGY | [address] [...] | + + + + + | [facility] DEPARTMENT OF | [address] | [place] [address] | | | PATHOLOGY | [address] | | | + + + + + | [facility] | [address] | [place] [address] | | | PATHOLOGY | [address] [...] DEPARTMENT OF | [address] | [place] [address] | | | PATHOLOGY | [address] | | | + + + + + | [facility] DEPARTMENT OF | [address] | [place] [address] | | | PATHOLOGY | [address] | | | + + + + + MAGNESIUM, PLASMA (09/17/2007 6:04 AM PST) + +-------+ + + + | Component | Value | Ref Range | Performed | Pathologist | | | | | At | Signature | + +-------+ + + + | MAGNESIUM,P | 2.0 | 1.8 - 2.5 mg/dL | [facility] | | | LASMA | | [...] | + + + + + | [facility] DEPARTMENT OF | [address] | [place] [address] | | | PATHOLOGY | [address] | | | + + + + + | [facility] | [address] | [place] [address] | | | PATHOLOGY | [address] [...] | + + + + + | [facility] | [address] [facility] | [place] [address] | | | PATHOLOGY | [address] | | | + + + + + | [facility] | [address] [place] [address] | [place] [address] | | | PATHOLOGY | [address] [...] | + + + + + | [facility] | [address] | [place] [address] | | | PATHOLOGY | [address] | | | + + + + + | [facility] | [facility] | [place] [address] | | | PATHOLOGY | [address] [...] | + + + + + | [facility] | [address] [facility] | [place] [address] | | | PATHOLOGY | [address] | | | + + + + + | [facility] | [address] [facility] | [place] [address] | | | PATHOLOGY | [address] [...] + + | [facility] DEPARTMENT OF | [address] [facility] | [place] [address] | | | PATHOLOGY | [address] | | | + + + + + | [facility] DEPARTMENT OF | [address] [facility] | [place] [address] | | | PATHOLOGY | [address] [...] DEPARTMENT OF | [address] | [place] [address] | | | PATHOLOGY | [address] | | | + + + + + | [facility] DEPARTMENT OF | [address] | [place] [address] | | | PATHOLOGY | [address] [...] DEPARTMENT OF | [address] | [place] [address] | | | PATHOLOGY | [address] | | | + + + + + | [facility] DEPARTMENT OF | [address] | [place] [address] | | | PATHOLOGY | [address] [...] Pathology | | | | | | FellowAndrew MEdwige | | | | | | Sheri, | | | | | | M.D./PathologistT: | | | | | | 09/20/ [...] | + + + + + | [facility] | [address] | [place] [address] | | | PATHOLOGY | [address] | | | + + + + + | [facility] | [address] | [place] [address] | | | PATHOLOGY | [address] | | | + + + + + documented in this encounter Visit Diagnoses Not on filedocumented in this encounter"
--- OUTSIDE RECORDS SUMMARY | ~2019-09-03 | XMS | Encounter Summary ---
Demographics + + + | Address | [address] | | | [place] [address] | + + + | Home Phone [...] Providers + +------+ + | Care Associate Dean Name | Role | Phone | [...] | | 2017 | | Center at [facility] [address] | | | | | | [address] | | | | | | Mailcode: Center | | | | | | for Health and | | | | | | Healing, Building [address] | | | | | | [place], [place] | | | | | | [address] | | | | | | [phone] | | | +--------+ + + + [...]
--- OUTSIDE RECORDS SUMMARY | ~2019-09-03 | XMS | Encounter Summary ---
Demographics + + + | Address | [address] | | | [place] [address] | + + + | Home Phone [...] | Organization | [facility] | [...] Providers + +------+ + | Care Customer Care Associate Name | Role | Phone | + +------+ + PCP | Unavailable | + +------+ + Encounter Details +--------+ + + + + | Date | Type | Department | Care Team | Description | +--------+ + + + + | 10/23/ | Hospital | [facility] | | | | 2010 | Encounter | MED CTR GENERIC OP | | | | | | CONV DEPT [address] | | | | | | [place], | | | | | | [place] [address] | | | | | | [phone] | | | +--------+ + + + [...]
--- OUTSIDE RECORDS SUMMARY | ~2019-09-03 | XMS | Encounter Summary ---
Demographics + + + | Address | [address] | | | [place] [address] | + + + | Home Phone [...] | Organization | [facility] | | | [...] Providers + +------+ + | Care Automotive Parts Interpreter Name | Role | Phone | [...] | [address] [place] | 4TH [facility], | | | | | [facility], [place] | [place] [address] | | | | | [address] | [phone] | | | | | [phone] | | | +--------+ + + + [...]
--- OUTSIDE RECORDS SUMMARY | ~2019-09-03 | XMS | Encounter Summary ---
Demographics + + + | Address | [address] | | | [place] [address] | + + + | Home Phone [...] Organization | [facility] | [...] Providers + +------+ + | Care Rn Lvn Name | Role | Phone | [...] | | | | CENTER [address] | [address] [place], [place] | Epigastric pain | | | | [place], [place] | [address] | | | | | [address] | | | | | | [phone] | | | +--------+ + + + [...] + | [facility] | [address] | [place], [place] | [phone] | | [facility] | | [address] | | | - LABORATORY | | | | + + + + + | [facility] | [address] | [place] | | | [facility] | | [address] | | | - LABORATORY | | [...] | | | FILTRATION | mL/min/1.73m2 | [facility] | | | [place] | RATE,ESTIMATED | | MEDICAL | | | | mL/min/1.78d7Nabg than | | CENTER - | | [...] + | [facility] | [address] | [place] | [phone] | | [facility] | | [address] | | | - LABORATORY | | | | + + + + + | [facility] | [address] | [place] | | | [facility] | | [address] | | | - LABORATORY | | [...] + | [facility] | [address] | [place], [place] | [phone] | | [facility] | | [address] | | | - LABORATORY | | | | + + + + + | [facility] | [address] | [place], [place] | | | [facility] | | [address] | | | - LABORATORY | | [...] the | | abdomen and pelvis most odtomrsh27/10/2011.PROTOCOL: Axial images of the abdomen and | [...] + | MISCELLANEOUS LAB | | | [phone] | + +---------+ + + | MISCELANIOUS LAB | | | [phone] | + +---------+ + + documented in [...]
--- OUTSIDE RECORDS SUMMARY | ~2019-09-03 | XMS | Encounter Summary ---
Demographics + + + | Address | [address] | | | [place] [address] | + + + | Home Phone [...] Organization | [facility] [...] Team Providers + +------+ + | Care Solder Leveler Printed Circuit Boards Name | Role | Phone | + +------+ + | No, Physician | PCP | Unavailable | + +------+ + Encounter Details +--------+ + + + + | Date | Type | Department | Care Team | Description | +--------+ + + + + | 11/17/ | Hospital | [facility] | Emily Green, | | | 2014 | Encounter | [facility] | DO [address] | | | | | MEDICAL CLINIC [address] | [place] [address] | | | | | [address] [place], | [phone] | | | | | [place] [address] | | | | | | [phone] | | | +--------+ + + + [...]
--- OUTSIDE RECORDS SUMMARY | ~2019-09-03 | XMS | Encounter Summary ---
Demographics + + + | Address | [address] | | | [place] [address] | + + + | Home Phone | | + + + | Preferred Language | Unknown | + + + | Marital Status | Single | + + + | Yarsanism Affiliation | CHR | + + + [...] Team Providers + +------+ + | Care Soda Fountain Manager Name | Role | Phone | [...] | | 2017 | | Center at [facility] [address] | | | | | | [address] | | | | | | Mailcode: Center | | | | | | for Health and | | | | | | Healing, Building [address] | | | | | | [place], [place] | | | | | | [address] | | | | | | [phone] | | | +--------+ + + + [...]
--- OUTSIDE RECORDS SUMMARY | ~2019-09-03 | XMS | Encounter Summary ---
Demographics + + + | Address | [address] | | | [place] [address] | + + + | Home Phone [...] Team Providers + +------+ + | Care Vocational Rehabilitation Teacher Name | Role | Phone | + +------+ + | Meaghan Zhong MD | PCP | | + +------+ + Encounter Details +--------+ + + + + | Date | Type | Department | Care Team | Description | +--------+ + + + + | 09/30/ | Telephone | Digestive Health | Bea Parks MD | | | 2007 | | [place] [facility] [address] | [address] | | | | | [address] | [place], | | | | | Mailcode: [place] | [place] [address] | | | | | [facility] and | [phone] | | | | | [facility] 2 | | | | | | [place], [place] | | | | | | [address] | | | | | | [phone] | | | +--------+ + + + [...]
--- OUTSIDE RECORDS SUMMARY | ~2019-09-03 | XMS | Encounter Summary ---
Demographics + + + | Address | [address] | | | [place] [address] | + + + | Home Phone [...] + | Organization | [facility] | | | and [place] [...] Team Providers + +------+ + | Care Classroom Monitor Name | Role | Phone | + +------+ + | Emily Green DO | PCP | | + +------+ + Encounter Details +--------+ + + + + | Date | Type | Department | Care Team | Description | +--------+ + + + + | 01/16/ | [facility] | [facility] | Shirley Frankel, | | | 2016 | Encounter | [facility] | WELDING MACHINE FEEDER [address] | | | | | MEDICAL CLIN[address] | DR[facility] [place] | | | | | [facility], | [address] | | | | | [place] [address] | | | | | | [phone] | | | +--------+ + + + [...]
--- OUTSIDE RECORDS SUMMARY | ~2019-09-03 | XMS | Encounter Summary ---
Demographics + + + | Address | [address] | | | [place] [address] | + + + | Home Phone [...] Team Providers + +------+ + | Care Connection Worker Name | Role | Phone | [...] | | | | | [address] [place], | | | | | | [place] [address] | | | +--------+ + + + [...] | + + | 09/17/2007 11:13 AM [facility] Anesthesia PostOp Report | | | | Patient: RACHID BANG[facility] Rec: [id number] Sex M Bdate: 1970 | | Date/Time Data | | Entered Into [facility] | | Anesth PostOp | | Surgery Date [id number] 09/17/07 11:13 | | Anesthesiologist ODIN RUSSELL 09/17/07 11:13 | | Resident Anesthesiolog KARIME TORRES 09/17/07 11:13 | | | + + documented in this encounter Visit Diagnoses Not on filedocumented in this encounter"
--- OUTSIDE RECORDS SUMMARY | ~2019-09-03 | XMS | Encounter Summary ---
Demographics + + + | Address | [address] | | | [place] [address] | + + + | Home Phone [...] + | Organization | [facility] | | | and [place] [...] Team Providers + +------+ + | Care Truckman Name | Role | Phone | + +------+ + | Emily Green DO | PCP | | + +------+ + Encounter Details +--------+ + + + + | Date | Type | Department | Care Team | Description | +--------+ + + + + | 12/10/ | Hospital | [facility] | Emily Green, | | | 2017 | Encounter | [facility] | DO [address] | | | | | MEDICAL CLIN[address] | [place] [address] | | | | | [address] [place], | [phone] | | | | | [place] [address] | | | | | | [phone] | | | +--------+ + + + [...]
--- OUTSIDE RECORDS SUMMARY | ~2019-09-03 | XMS | Encounter Summary ---
Demographics + + + | Address | [address] | | | [place] [address] | + + + | Home Phone [...] Team Providers + +------+ + | Care Street Engineer Name | Role | Phone | [...] | Other | | 2015 | | [facility] [address] | | | | | | [place] | | | | | | Mailcode: [facility] | | | | | | for Health and | | | | | | [facility], [address] | | | | | | [place], [place] | | | | | | [address] | | | | | | [phone] | | | +--------+ + + + [...]
--- OUTSIDE RECORDS SUMMARY | ~2019-09-03 | XMS | Encounter Summary ---
Demographics + + + | Address | [address] | | | [place] [address] | + + + | Home Phone [...] | [facility] | [...] Team Providers + +------+ + | Care Sound Tester Name | Role | Phone | [...] Refill | | 2017 | | [facility] | DO [address] | | | | | MEDICAL CL[facility] [address] | [place] [address] | | | | [address] [place], | [phone] | | | | | [place] [address] | | | | | | [phone] | | | +--------+--------+ + + + [...]
--- OUTSIDE RECORDS SUMMARY | ~2019-09-03 | XMS | Encounter Summary ---
Demographics + + + | Address | [address] | | | [place] [address] | + + + | Home Phone [...] + + + | Author | [facility] | + + + | Organization | [facility] | + + + | Address | Unknown | + + + | Phone | Unavailable | + + + Support + + +---------+ + | Name | Relationship | Address | Phone | + + +---------+ + | Thalia Armani | ECON | Unknown | | + + +---------+ + Care Team Providers + +------+ + | Care Chemical Cell Changer Name | Role | Phone | + [...] Medical Records | | 2015 | | [place] [address] | | Review | | | | [place] | | | | | | Mailcode: [place] | | | | | | [facility] Health and | | | | | | [facility] | | | | | | [place], [place] | | | | | | [address] | | | | | | [phone] | | | +--------+ + + + [...]
--- OUTSIDE RECORDS SUMMARY | ~2019-09-03 | XMS | Encounter Summary ---
Demographics + + + | Address | [address] | | | [place] [address] | + + + | Home Phone [...] Organization | [facility] | | | [...] Team Providers + +------+ + | Care Sped Teacher Name | Role | Phone | + +------+ + PCP | Unavailable | + +------+ + Encounter Details +--------+ + + + + | Date | Type | Department | Care Team | Description | +--------+ + + + + | 03/21/ | Hospital | [facility] | | | | 2008 | Encounter | MED CTR GENERIC OP | | | | | | CONV DEPT [address] | | | | | | [place], | | | | | | [place] [address] | | | | | | [phone] | | | +--------+ + + + [...]
--- OUTSIDE RECORDS SUMMARY | ~2019-09-03 | XMS | Encounter Summary ---
Demographics + + + | Address | [address] | | | [place] [address] | + + + | Home Phone [...] | Organization | [facility] | | | and [...] Team Providers + +------+ + | Care Foreign Language Stenographer Name | Role | Phone | + [...] | | | | | Crohn's | [address] | J[place], | | | | | disease, | [address] [place] | [place] [address] | | | | | unspecified | [place], [place] | Phone: | | | | | complication | [address] | [phone] | | | | | Other | Phone: | Fax: | | | | | opiates and | [phone] | [phone] | | | | | related | Fax: | | | | | | narcotics | [phone] | | | | | | causing | | | | | | | adverse | | | | | | | effect in | | | | | | | therapeutic | | | | | | | use | | | | | | | Procedures | | | | | | | ND | | | | | | | ESOPHAGOGAST | | | | | | | RODUODENOSCO | | | | | | | PY TRANSORAL | | | | | | | DIAGNOSTIC | | | | | | | ND EDG | | | | | | | TRANSORAL | | | | | | | BIOPSY | | | | | | | SINGLE/MULTI | | | | | | | PLE ND | | | | | | | COLONOSCOPY, | | | | | | | DIAGNOSTIC | | | | | | | ND | | | | | | | COLONOSCOPY, | | | | | | | BIOPSY ND | | | | | | | [...] | | | | Procedures | [place] [address] | [address] | | | | | evaluate and | Phone: | Phone: | | | | | treat | [phone] | [phone] | | | | | | Fax: | Fax: | | | | | | [phone] | [phone] | +--------+--------+ + + + + Encounter Details +--------+---------+ + + + | Date | Type | Department | Care Team | Description | +--------+---------+ + + + | 03/22/ | Office | [facility] | Reg Zurita, | Abdominal pain | | 2013 | Visit | GASTROENTEROLOGY | [address] | (Primary Dx); | | | | [address] | [address] [place], | Crohn's disease, | | | | [address] [place], [place] | [place] [address] | unspecified | | | | [address] | [phone] | complication (HCC) | | | | [phone] | | | +--------+---------+ + + + [...] Date Crohn's disease (HCC) hospitalized 11/03/12-11/07/[address] [facility] for crohn's flare Asthma Hypothyroidism Hx [...] GASTROENTEROLOGY [address] [place] [address] FAX: [phone] OFFICE VISIT HISTORY OF PRESENT ILLNESS: The patient referred from his doctors in [facility]. For e past 3 weeks the patient [...] M.D. ADONAY / ANN MARIE JOB #: [id number] signed by Reg Zurita MD at 03/23/2014 [...]
--- OUTSIDE RECORDS SUMMARY | ~2019-09-03 | XMS | Encounter Summary ---
Demographics + + + | Address | [address] | | | [place] [address] | + + + | Home Phone [...] Team Providers + +------+ + | Care Wireless Sales Associate Name | Role | Phone | [...] Suicidal Ideation | | 2017 | | [place] [address] | | | | | | [place] | | | | | | Mailcode: [place] | | | | | | for Health and | | | | | | [facility] | | | | | | [place], [place] | | | | | | [address] | | | | | | [phone] | | | +--------+ + + + [...]
--- OUTSIDE RECORDS SUMMARY | ~2019-09-03 | XMS | Encounter Summary ---
Demographics + + + | Address | [address] | | | [place] [address] | + + + | Home Phone [...] + | Organization | [facility] | | | and [place] [...] Team Providers + +------+ + | Care Housekeeping Aid Name | Role | Phone | [...] | | | | | | site ([facility]) | | | | | | | [[phone]] | | | | | | | Procedures | | | | | | | COLONOSCOPY | | | +--------+--------+ + + + + Encounter Details +--------+---------+ + + + | Date | Type | Department | Care Team | Description | +--------+---------+ + + + | 11/16/ | Surgery | [facility] | Carmelo Patterson MD | COLONOSCOPY | | 2015 | | MED CTR MP INTRA OP | [address] | | | | | [address] | [place] | | | | | [place] | [address] | | | | | [address] | [phone] | | | | | [phone] | | | +--------+---------+ + + + [...] documented as of this encounter Discharge Instructions Almita Jean RN - 11/15/2014Patient Discharge Instructions after an [...] the physician who did your procedure at [phone] if you have any questions or experience any of the following: ? Increasing abdominal pain, nausea, or vomiting. ? Chills and fever over 101F. ? New abdominal swelling or bloating. ? Signs of rectal bleeding (black or red stool. If you cannot get a hold of your physician, then call the [facility] [phone] . If necessary, report to the Emergency Department at [facility]. Quit smoking: If you smoke [...] such as nuts, corn, popcorn a nd Macedonian vegetables. MEDICATIONS: For mild to moderate cramping [...] s and Colitis Foundation of [employer] 128.492.9341 www.ccfa.org National Digestive Diseases Information Clearinghouse (NDDIC) 405.502.6680 www.digestive .niddk.nih.gov Get Prompt Medical Attention if any of the following occur: Fever of 100.4F(38C) or higher, or as directed by your healthcare provider Abdominal pain that does not respond to usual measures Mucus, pus or blood in the stool (dark or bright red) Repeated vomiting Abdominal swelling and pain that does not go away after a few hours 6537-5338 The [employer]. [address] [place] [address]. All righ ts reserved. This information is [...] | | | | | PST | ([facility]) Abdominal | | | | | | [...] | PROVATION | | 11/16/2014 8:31 AMMRN: [id number] #: [id number] of : | | | 1970Admit Type: AmbulatoryAge: 44Room: [facility] 02Gender: MaleNote | | | Status: [...] the nurse | | | and the air quality technician in the pre-procedure area in the [...] Scope In: 8:50:16 AMScope Out: 9:09:29 AM [facility]. | | | [facility], [address] [place] [address] | | | [phone] | | | - Continue present medications. [...] |Scope Out: 9:09:29 AM | | | [facility]. [facility], [address], [place] | | | [address] | | + + -+ + +---------+ [...] PST | | | | | Starting [facility] 11/16/14 at 0731, | | | | | | | Recovery/Phase I | | | | | | + +-------+ +---+---+---+ +---+---+ | | | +---+---+ + +-------+ +------+---+---+ | ondansetron (ZOFRAN) injection | Given | 11/16/19 | 4 mg | | | | PRN, Starting [facility] 11/16/14 at | | 15 8:44 | [...]
--- OUTSIDE RECORDS SUMMARY | ~2019-09-03 | XMS | Encounter Summary ---
Demographics + + + | Address | [address] | | | [place] [address] | + + + | Home Phone [...] Organization | [facility] | | [...] Team Providers + +------+ + | Care Furniture Repair Technician Name | Role | Phone | [...] [place] | | | | | | [address] | (Fax) | | | | | [phone] | | | +--------+ + + + [...]
--- OUTSIDE RECORDS SUMMARY | ~2019-09-03 | XMS | Encounter Summary ---
Demographics + + + | Address | [address] | | | [place] [address] | + + + | Home Phone [...] | Organization | [facility] | [...] Team Providers + +------+ + | Care Cpht Name | Role | Phone | + [...] + + | 11/16/ | Hospital | [facility] | Carmelo Patterson MD | Abdominal pain | | 2015 | Encounter | MED CTR MP INTRA OP | [address] | (Primary Dx); | | | | [address] | [place] | Crohn's disease, | | | | [place] | [address] | without | | | | [address] | [phone] | complications (HCC) | | | | [phone] | | | +--------+ + + + [...] the physician who did your procedure at [phone] if you have any questions or experience any of the following: ? Increasing abdominal pain, nausea, or vomiting. ? Chills and fever over 101F. ? New abdominal swelling or bloating. ? Signs of rectal bleeding (black or red stool. If you cannot get a hold of your physician, then call the [facility] [phone] . If necessary, report to the Emergency Department at [facility]. Quit smoking: If you smoke [...] such as nuts, corn, popcorn a nd Syriac vegetables. MEDICATIONS: For mild to moderate cramping [...] s and Colitis Foundation of [employer] 353.357.5257 www.ccfa.org National Digestive Diseases Information Clearinghouse (NDDIC) 975.271.7105 www.digestive .niddk.nih.gov Get Prompt Medical Attention if any of the following occur: Fever of 100.4F(38C) or higher, or as directed by your healthcare provider Abdominal pain that does not respond to usual measures Mucus, pus or blood in the stool (dark or bright red) Repeated vomiting Abdominal swelling and pain that does not go away after a few hours 2392-0708 [employer]. [address] [place] [address]. All righ ts reserved. This information is [...] | | | | | PST | ([facility]) Abdominal | | | | | | [...] | PROVATION | | 11/16/2014 8:31 AMMRN: [id number] #: [id number] of : | | | 1970Admit Type: AmbulatoryAge: 44Room: [facility] 02Gender: MaleNote | | | Status: [...] the nurse | | | and the certified surgical technician in the pre-procedure area in the [...] Scope In: 8:50:16 AMScope Out: 9:09:29 AM [facility]. | | | [facility], [facility] [place] [address] | | | [phone] | | | - Continue present medications. [...] Out: 9:09:29 AM | | | [facility], [address] , [place] | | | [address] | | + + -+ + +---------+ [...] mg/mL | | | injection Starting [facility] 11/16/14 | | | at 0734, [...] | | | | | Starting [facility] 11/16/14 at 0731, | | | [...]
--- OUTSIDE RECORDS SUMMARY | ~2019-09-03 | XMS | Encounter Summary ---
Demographics + + + | Address | [address] | | | [place] [address] | + + + | Home Phone [...] + | Organization | [facility] | | | and [...] Team Providers + +------+ + | Care Preschool Head Teacher Name | Role | Phone | [...] [address] [place] | [place] [address] | | | | | [place], [place] | [phone] | | | | | [address] | | | | | | [phone] | | | +--------+ + + + [...]
--- OUTSIDE RECORDS SUMMARY | ~2019-09-03 | XMS | Encounter Summary ---
Demographics + + + | Address | [address] | | | [place] [address] | + + + | Home Phone [...] Team Providers + +------+ + | Care Founder President And Ceo Name | Role | Phone | + +------+ + | Meaghan Zhong MD | PCP | | + +------+ + Encounter Details +--------+ + + + + | Date | Type | Department | Care Team | Description | +--------+ + + + + | 12/27/ | Telephone | [facility] | Bhargav Jamison MD | | | 2017 | | [facility] | [address] | | | | | [place] | [address] [place], | | | | | Mailcode: Christmas | [place] [address] | | | | | [facility] and | [phone] | | | | | [facility], [facility] 2 | | | | | | [place], [place] | | | | | | [address] | | | | | | [phone] | | | +--------+ + + + [...]
--- OUTSIDE RECORDS SUMMARY | ~2019-09-03 | XMS | Encounter Summary ---
Demographics + + + | Address | [address] | | | [place] [address] | + + + | Home Phone [...] Team Providers + +------+ + | Care Lion Trainer Name | Role | Phone | [...] Todd MD - 09/16/2007 12:00 AM PST [id number] | | [id number] [place] [address]28 | | [id number] Date: 09/16/2007 Attending Surgeon: Bea Parks M.D. Chief Dog License Inspector(s): Hong Perez | | Jayda Todd Preoperative [...] #1 Maxon in an | | interrupted dnuljp-ud-jiemz fashion. Then, we proceeded to close the [...] Hong Todd M.D. Bea Parks M.D. / [id number] / [id number] / | | 87043 / [id number] Electronically signed by Bea Parks 11-25-2007 | [...] #1 Maxon in an interrupted | | yldzfn-ax-kuouv fashion. Then, we proceeded to close the [...] | | | | / | | [id number] / [id number] / 02930 / [id number] | | | | | | | | | | | | Electronically signed by Bea Parks 11-25-2007 03:42:19 PM | | | | | + + documented in this encounter Visit Diagnoses Not on filedocumented in this encounter"
--- OUTSIDE RECORDS SUMMARY | ~2019-09-03 | XMS | Encounter Summary ---
Demographics + + + | Address | [address] | | | [place] [address] | + + + | Home Phone [...] + | Organization | [facility] | | [...] Team Providers + +------+ + | Care Stringing Machine Tender Name | Role | Phone [...] | | | disease | | [address] | | | | | without | | [place], | | | | | complication | | [place] [address] | | | | | , | | Phone: | | | | | unspecified | | [phone] | | | | | gastrointest | | Fax: | | | | | inal tract | | [phone] | | | | | location | [...] | | | | | | | [place] | | | | | | | COLONOSCOPY | | | | | | | FLX DX | | | | | | | W/COLLJ SPEC | | | | | | | WHEN PFRMD | | | | | | | [place] | | | | | | | [...] + + | 04/09/ | Hospital | [facility] | Carmelo Patterson MD | Gastroesophageal | | 2016 | Encounter | MED CTR MP INTRA OP | [address] | reflux disease, | | | | [address] | [place] | esophagitis presence | | | | [place] | [address] | not specified | | | | [address] | [phone] | (Primary Dx); | | | | [phone] | | Crohn's disease with | | [...] the physician who did your procedure at [phone] if you have any questions or experience any of the following: ? Increasing abdominal pain, nausea, or vomiting. ? Chills and fever over 101F. ? New abdominal swelling or bloating. ? Signs of rectal bleeding (black or red stool). If you cannot get a hold of your physician, then call the [facility] [phone] . If necessary, report to the Emergency Department at [facility]. Quit smoking: If you smoke [...] dependence | | | | | | ([facility]) | | + +--------+ + + [...] | PROVATION | | 04/09/2016 9:17 AMMRN: [id number] #: [id number] of : | | | 1970Admit Type: AmbulatoryAge: 45Room: [facility] 02Gender: MaleNote | | | Status: FinalizedAttending MD: Carmelo Patterson, [facility]rocedure: | | | Upper GI endoscopyIndications: Nausea with | | | vomitingProviders: Carmelo Patterson MD, Nini | | | ADITI Stewart, Kaylen Hernandez RN, Iraida | | | Stepan, Bell Spinner Sousaphones, Nima Lynn MD | | | (Anesthesia [...] the | | | anesthesiologist and the customer data technician in the pre-procedure area in the [...] AMScope Out: 9:46:40 AM | | | [facility], [address] [place] [address] | | | [address] | | | instructions were provided to [...] |Scope Out: 9:46:40 AM | | | [facility], [address] [place] [address] | | | [address] | | + + -+ + +---------+ [...] | PROVATION | | 04/09/2016 9:15 AMMRN: [id number] #: [id number] of : | | | 1970Admit Type: AmbulatoryAge: 45Room: [facility] 02Gender: MaleNote | | | Status: FinalizedAttending MD: Carmelo Patterson, [facility]ANrocedure: | | | ColonoscopyIndications: Follow-up of Crohn's disease of | | | the colonProviders: Carmelo Patterson MD, [place] | | | ADITI Stewart, Kaylen Hernandez RN, Iraida | | | Stepan, Bell Spinner Sousaphones, Nima Lynn MD | | | (Anesthesia [...] the | | | anesthesiologist and the customer data technician in the pre-procedure area in the [...] | | 9:53:11 AMScope Out: 10:24:21 AM [facility] | | | Center, [address] [place] [address] | | | - High fiber diet [...] |Scope Out: 10:24:21 AM | | | [facility], [address] [place] [address] | | | [address] | | + + -+ + +---------+ + + | Performing | Address | City/State/[facility] Mexicocode | Phone Number | | Organization | [...] | | | endoscopic correlation is recommended. ARW:[facility]:C2NR GROSS | | | DESCRIPTION: Received in nine parts. A. Received in formalin | | | labeled "Worship Newton" and "duodenal bx" on the requisition are | | | eight pink-owens tissue fragments measuring from 0.1-0.7 cm, submitted, | | | all in (A1). B. Received in formalin labeled "Worship Newton" | | | and "gastric bx" on the requisition are two pink-owens tissue fragments | | | measuring from 0.35-0.55 cm, submitted, all in (B1). C. Received | | | in formalin labeled "Worship Newton" and "esophagus bx" on the | | | requisition are seven pink-owens tissue fragments measuring from | | | <0.1-0.4 cm, submitted, all in (C1). D. Received in formalin | | | labeled "Worship Newton" and "right colon bx" on the requisition | | | are four pink-owens tissue fragments measuring from 0.2-0.5 cm, | | | submitted, all in (D1). | | | E. Received in formalin | | | labeled "Worship Newton" and "transverse colon bx" on the | | | requisition are four pink-owens tissue fragments measuring from 0.4-0.6 | | | cm, submitted all into (E1). F. Received in formalin labeled | | | "Worship Newton" and "descending colon bx" on the requisition are | | | five pink-owens tissue fragments measuring from 0.1-0.8 cm, submitted, | | | all in (F1). G. Received in formalin labeled "Worship Newton" | | | and "sigmoid colon bx" on the requisition are six pink-owens tissue | | | fragments measuring from 0.2-0.5 cm submitted, all in (G1). H. | | | Received in formalin labeled "Worship Newton" and "rectal bx" on | | | the requisition are seven pink-owens tissue fragments measuring from | | | 0.25-0.5 cm, submitted, all in (H1). I. Received in formalin | | | labeled "Worship Newton" and "sigmoid polyp bx" on the requisition | | | are five red-brown fragments measuring from 0.1-0.4 cm, submitted, all | | | in (I1). ka:CLR:[facility] PERFORMING LABORATORY: Tissue processing | | | and slide preparation were performed by [facility], [address] | | | [facility], [place] [address] (Senior Interior Designer: Agusto | | | Jayda Mccracken CLIA#: [id number]). Professional interpretation was | | | performed by [facility], [address] [place] [address] | | | [place] [address] (Senior Interior Designer: Agusto Mccracken M.D.; CLIA#: | | | [id number]). Diagnostician: Ruiz Barrett DO Pathologist | | [...]
--- OUTSIDE RECORDS SUMMARY | ~2019-09-03 | XMS | Encounter Summary ---
Demographics + + + | Address | [address] | | | [place] [address] | + + + | Home Phone [...] | Organization | [facility] | | [...] Providers + +------+ + | Care Commercial Artist Name | Role | Phone | [...] + + | 11/16/ | Surgery | [facility] | Carmelo Patterson MD | COLONOSCOPY | | 2015 | | MED CTR MP INTRA OP | [address] | | | | | [address] | [place] | | | | | [place] | [address] | | | | | [address] | [phone] | | | | | [phone] | | | +--------+---------+ + + + [...] the physician who did your procedure at [phone] if you have any questions or experience any of the following: ? Increasing abdominal pain, nausea, or vomiting. ? Chills and fever over 101F. ? New abdominal swelling or bloating. ? Signs of rectal bleeding (black or red stool. If you cannot get a hold of your physician, then call the [facility] [phone] . If necessary, report to the [...] such as nuts, corn, popcorn a nd Solomon Islander vegetables. MEDICATIONS: For mild to moderate cramping [...] s and Colitis Foundation of [employer] 748.727.2824 www.ccfa.org National Digestive Diseases Information Clearinghouse (NDDIC) 284.766.3393 www.digestive .niddk.nih.gov Get Prompt Medical Attention if any of the following occur: Fever of 100.4F(38C) or higher, or as directed by your healthcare provider Abdominal pain that does not respond to usual measures Mucus, pus or blood in the stool (dark or bright red) Repeated vomiting Abdominal swelling and pain that does not go away after a few hours 2696-3809 [employer]. [address] [place] [address]. All righ ts reserved. This information is [...] | PROVATION | | 11/16/2014 8:31 AMMRN: [id number] #: [id number] of : | | | 1970Admit Type: AmbulatoryAge: 44Room: [facility] 02Gender: MaleNote | | | Status: FinalizedAttending MD: Carmelo Patterson, MDProcedure: | | | ColonoscopyIndications: Follow-up of Crohn's disease of | | | the colonProviders: Carmelo Patterson MD, Monique Tejada | | | ADITI Ling, RUBY NOTRON, | | | TechnicianMedicines: Midazolam 5 mg [...] the nurse | | | and the composite bond technician in the pre-procedure area in the [...] Scope In: 8:50:16 AMScope Out: 9:09:29 AM [facility]. | | | [facility], [address] [place] [address] | | | [phone] | | | - Continue present medications. [...] |Scope Out: 9:09:29 AM | | | [facility]. [facility], [address], [place] | | | [address] | | + + -+ + +---------+ [...] PST | | | | | Starting [facility] 11/16/14 at 0731, | | | | | | | Recovery/Phase I | | | | | | + +-------+ +---+---+---+ +---+---+ | | | +---+---+ + +-------+ +------+---+---+ | ondansetron (ZOFRAN) injection | Given | 11/16/19 | 4 mg | | | | PRN, Starting [facility] 11/16/14 at | | 15 8:44 | [...]
--- OUTSIDE RECORDS SUMMARY | ~2019-09-03 | XMS | Encounter Summary ---
Demographics + + + | Address | [address] | | | [place] [address] | + + + | Home Phone [...] Team Providers + +------+ + | Care Heavy Equipment Service Technician Name | Role | Phone [...] Refill Request | | 2015 | | [place] [facility] [address] | | | | | | [address] | | | | | | Mailcode: [place] | | | | | | for Health and | | | | | | Healing, Building 2 | | | | | | [place], [place] | | | | | | [address] | | | | | | [phone] | | | +--------+--------+ + + + [...]
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
--- OUTSIDE RECORDS SUMMARY | ~2019-09-03 | XMS | Encounter Summary ---
Demographics + + + | Address | [address] | | | [place] [address] | + + + | Home Phone [...] Organization | [facility] [place] | | [...] Providers + +------+ + | Care Licensed Funeral Director Name | Role | Phone | [...] + | 05/17/ | Telephone | [facility] | Carmelo Patterson MD | Appointment (move up | | 2014 | | GASTROENTEROLOGY | [address] | colonoscopy) | | | | [address] [facility] | [place], [place] | | | | | [address] [place] | [address] | | | | | [address] | [phone] | | | | | [phone] | | | +--------+ + + + [...]
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
--- OUTSIDE RECORDS SUMMARY | ~2019-09-03 | XMS | Encounter Summary ---
Demographics + + + | Address | [address] | | | [place] [address] | + + + | Home Phone [...] Organization | [facility] [place] | | [...] Providers + +------+ + | Care Fire Captain Marine Name | Role | Phone | + +------+ + | No, Physician | PCP | Unavailable | + +------+ + Encounter Details +--------+ + + + + | Date | Type | Department | Care Team | Description | +--------+ + + + + | 08/07/ | [facility] | [place] | Clement Ventura | | | 2013 | Encounter | HOSPITAL EMERGENCY | MD [address] | | | | | CENTER [address] | [facility] | | | | | [address] [place], [place] | [place] [address] | | | | | [address] | [phone] | | | | | [phone] | | | +--------+ + + + [...]
--- OUTSIDE RECORDS SUMMARY | ~2019-09-03 | XMS | Encounter Summary ---
Demographics + + + | Address | [address] | | | [place] [address] | + + + | Home Phone [...] Providers + +------+ + | Care Assembler Engine Name | Role | Phone | + [...] | | 2017 | | Center at [facility] [address] | | | | | | [address] | | | | | | Mailcode: Center | | | | | | for Health and | | | | | | [facility], Building [address] | | | | | | [place], [place] | | | | | | [address] | | | | | | [phone] | | | +--------+ + + + [...]
--- OUTSIDE RECORDS SUMMARY | ~2019-09-03 | XMS | Encounter Summary ---
Demographics + + + | Address | [address] | | | [place] [address] | + + + | Home Phone [...] Providers + +------+ + | Care Supervisor Treating And Pumping Name | Role | Phone | + [...] Medication Refill | | 2015 | | [place] [address] [address] | | | | | | [address] | | | | | | Mailcode: [place] | | | | | | [facility] Health and | | | | | | [facility], [facility] 2 | | | | | | [place], [place] | | | | | | [address] | | | | | | [phone] | | | +--------+ + + + [...]
--- OUTSIDE RECORDS SUMMARY | ~2019-09-03 | XMS | Encounter Summary ---
Demographics + + + | Address | [address] | | | [place] [address] | + + + | Home Phone [...] | [facility] [place] | | | and [place] [...] Providers + +------+ + | Care Hot Die Press Feeder Name | Role | Phone | [...] [address] | [place] [address] | | | | | [place], [place] | [phone] | | | | | [address] | | | | | | [phone] | | | +--------+ + + + [...]
--- OUTSIDE RECORDS SUMMARY | ~2019-09-03 | XMS | Encounter Summary ---
Demographics + + + | Address | [address] | | | [place] [address] | + + + | Home Phone [...] Organization | [facility] | | [...] Team Providers + +------+ + | Care Motorboat Operator Name | Role | Phone [...] [place] | | | | | | [address] | | | | | | [phone] | | | +--------+ + + + [...]
--- OUTSIDE RECORDS SUMMARY | ~2019-09-03 | XMS | Encounter Summary ---
Demographics + + + | Address | [address] | | | [place] [address] | + + + | Home Phone [...] Providers + +------+ + | Care Garment Sewer Hand Name | Role | Phone | [...] | | 2017 | | Center at [facility] [address] | MD | From Patient (Letter | | | | [address] | | from patient) | | | | Mailcode: Center | | | | | | for Health and | | | | | | Healing, Building [address] | | | | | | [place], [place] | | | | | | [address] | | | | | | [phone] | | | +--------+ + + + [...]
--- OUTSIDE RECORDS SUMMARY | ~2019-09-03 | XMS | Encounter Summary ---
Demographics + + + | Address | [address] | | | [place] [address] | + + + | Home Phone [...] Organization | [facility] [place] | | | and [place] [...] Team Providers + +------+ + | Care Siphoner Name | Role | Phone | + [...] | | | | | site | [place], [place] | [place] [address] | | | | | Abdominal | [address] | Phone: | | | | | pain, | Phone: | [phone] | | | | | unspecified | [phone] | Fax: | | | | | site Other | Fax: | [phone] | | | | | opiates and | [phone] | | | | | | related [...] | | | | | | | [place] | | | | | | | COLONOSCOPY | | | | | | | FLX DX | | | | | | | W/COLLJ SPEC | | | | | | | WHEN PFRMD | | | | | | | UT | | | | | | | COLONOSCOPY | | | | | | | W/BIOPSY | | | | | | | SINGLE/MULTI | | | | | | | PLE UT | | | | | | | COLSC FLX | | | | | | | W/RMVL OF | | | | | | | TUMOR POLYP | | | | | | | LESION SNARE | | | | | | | TQ UT | | | | | | | [...] + + | 10/30/ | Telephone | [facility] | Carmelo Patterson MD | Other (Schedule | | 2014 | | GASTROENTEROLOGY | [address] | colonoscopy) | | | | [address] [facility] [facility] | [place], [place] | | | | | [address] [place], [place] | [address] | | | | | [address] | [phone] | | | | | [phone] | | | +--------+ + + + [...]
--- OUTSIDE RECORDS SUMMARY | ~2019-09-03 | XMS | Encounter Summary ---
Demographics + + + | Address | [address] | | | [place] [address] | + + + | Home Phone [...] Author | [facility] [place] | | | and [place] | + + + | Organization | [facility] | | [...] Team Providers + +------+ + | Care Atm Technician Name | Role | Phone | [...] 2013 | | GASTROENTEROLOGY | [address] | | | | | [address] | [address] [place], | | | | | [address] [place], [place] | [place] [address] | | | | | [address] | [phone] | | | | | [phone] | | | +--------+ + + + [...]
--- OUTSIDE RECORDS SUMMARY | ~2019-09-03 | XMS | Encounter Summary ---
Demographics + + + | Address | [address] | | | [place] [address] | + + + | Home Phone [...] | [facility] | | [...] Providers + +------+ + | Care Marketing Secretary Name | Role | Phone | [...] Encounter | HOSPITAL EMERGENCY | MD [address] | | | | | CENTER [address] | [address]aciela Juarez | | | | | [address] [place] | [place] [address] | | | | | [address] | [phone] | | | | | [phone] | | | +--------+ + + + [...]
--- OUTSIDE RECORDS SUMMARY | ~2019-09-03 | XMS | Encounter Summary ---
Demographics + + + | Address | [address] | | | [place] [address] | + + + | Home Phone [...] Team Providers + +------+ + | Care Receiving Barn Custodian Name | Role | Phone | + [...] | Rd Mailcode: [id number] | [address] [place], | | | | | [place], [place] | [place] [address] | | | | | [address] | [phone] | | | | | [phone] | | | +--------+ + + + [...] | + + + + + | [facility] | [address] | [place] [address] | | | PATHOLOGY | [address] | | | + + + + + | [facility] | [address] | [place] [address] | | | PATHOLOGY | [address] [...] + + | [facility] DEPARTMENT OF | [address] | [place] [address] | | | PATHOLOGY | [address] | | | + + + + + | [facility] DEPARTMENT OF | [address] | [place] [address] | | | PATHOLOGY | [address] [...] | + + + + + | [facility] DEPARTMENT OF | [address] | [place] [address] | | | PATHOLOGY | [address] | | | + + + + + | [facility] DEPARTMENT OF | [address] | [place] [address] | | | PATHOLOGY | [address] | | | + + + + + BASIC METABOLIC SET (09/19/2007 7:57 AM PST) + +---------+ + + + | Component | Value | Ref Range | Performed | Pathologist | | | | | At | Signature | + +---------+ + + + | GLUCOSE, | 90 | 60 - 99 mg/dL | [facility] | | | PLASMA | [...] [facility] DEPARTMENT OF | [address] [facility] | [place] [address] | | | PATHOLOGY | [address] | | | + + + + + | [facility] DEPARTMENT OF | [address] [facility] | [place] [address] | | | PATHOLOGY | [address] [...] | + + + + + | [facility] DEPARTMENT OF | [address] | [place] [address] | | | PATHOLOGY | [address] | | | + + + + + | [facility] OF | [address] | [place] [address] | | | PATHOLOGY | [address] [...] DEPARTMENT OF | [address] | [place] [address] | | | PATHOLOGY | [address] | | | + + + + + | [facility] DEPARTMENT OF | [address] | [place] [address] | | | PATHOLOGY | [address] | | | + + + + + MAGNESIUM, PLASMA (09/17/2007 6:04 AM PST) + +-------+ + + + | Component | Value | Ref Range | Performed | Pathologist | | | | | At | Signature | + +-------+ + + + | MAGNESIUM,P | 2.0 | 1.8 - 2.5 mg/dL | [facility] | | | LASMA | [...] | + + + + + | [facility] DEPARTMENT OF | [address] | [place] [address] | | | PATHOLOGY | [address] | | | + + + + + | [facility] | [address] | [place] [address] | | | PATHOLOGY | [address] [...] | + + + + + | [facility] | [address] [facility] | [place] [address] | | | PATHOLOGY | [address] | | | + + + + + | [facility] | [address] [place] [address] | [place] [address] | | | PATHOLOGY | [address] [...] | + + + + + | [facility] | [address] | [place] [address] | | | PATHOLOGY | [address] | | | + + + + + | [facility] | [facility] | [place] [address] | | | PATHOLOGY | [address] [...] | + + + + + | [facility] | [address] [facility] | [place] [address] | | | PATHOLOGY | [address] | | | + + + + + | [facility] | [address] [facility] | [place] [address] | | | PATHOLOGY | [address] [...] + + | [facility] DEPARTMENT OF | [address] [facility] | [place] [address] | | | PATHOLOGY | [address] | | | + + + + + | [facility] DEPARTMENT OF | [address] [facility] | [place] [address] | | | PATHOLOGY | [address] [...] DEPARTMENT OF | [address] | [place] [address] | | | PATHOLOGY | [address] | | | + + + + + | [facility] DEPARTMENT OF | [address] | [place] [address] | | | PATHOLOGY | [address] [...] DEPARTMENT OF | [address] | [place] [address] | | | PATHOLOGY | [address] | | | + + + + + | [facility] DEPARTMENT OF | [address] | [place] [address] | | | PATHOLOGY | [address] [...] | + + + + + | [facility] | [address] | [place] [address] | | | PATHOLOGY | [address] | | | + + + + + | [facility] | [address] | [place] [address] | | | PATHOLOGY | [address] | | | + + + + + documented in this encounter Visit Diagnoses Not on filedocumented in this encounter"
--- OUTSIDE RECORDS SUMMARY | ~2019-09-03 | XMS | Encounter Summary ---
Demographics + + + | Address | [address] | | | [place] [address] | + + + | Home Phone [...] | [facility] | | | and [...] Team Providers + +------+ + | Care Parcel Post Weigher Name | Role | Phone | [...] 2012 | | GASTROENTEROLOGY | [address] | | | | | [address] | [address] [place], | | | | | [address] [place], [place] | [place] [address] | | | | | [address] | [phone] | | | | | [phone] | | | +--------+ + + + [...]
--- OUTSIDE RECORDS SUMMARY | ~2019-09-03 | XMS | Encounter Summary ---
Demographics + + + | Address | [address] | | | [place] [address] | + + + | Home Phone [...] | Author | [facility] [place] | | | and [place] | + + + | Organization | [facility] & [...] Team Providers + +------+ + | Care Tumble Tailstock Turret Lathe Operator Name | Role | Phone [...] | [address] [place], [place] | [place] [address] | | | | | [address] | [phone] | | | | | [phone] | | | +--------+ + + + [...]
--- OUTSIDE RECORDS SUMMARY | ~2019-09-03 | XMS | Encounter Summary ---
Demographics + + + | Address | [address] | | | [place] [address] | + + + | Home Phone [...] Team Providers + +------+ + | Care Tetryl Blender Operator Name | Role | Phone | [...] Rd | | | | | | [place], [place] | | | | | | [address] | | | +--------+ + + + [...] Giordano S - 11/25/2007 6:48 PM PST [id number] [address] [address] [id number] Admission Date: 09/16/2007 Discharge Date: 09/20/2007 Staff Physician: Bea Parks M.D. The patient was admitted to the [facility] Surgery Service. Principal Final Diagnosis: [...] his hospital admission. He was transitioned off BRUSH AND BROOM CLIPPER to oral pain medications. His diet was [...] weeks. Dimitrios Giordano M.D. Bea Parks M.D. [facility] / [id number] / [id number] / [id number] / Reviewed or Edited By Dimitrios Giordano M.D. on 09-29-2007 Electronically signed by Bea Parks 11-25-2007 03:43:16 PM documented in this enco unter Plan of Treatment Not on filedocumented as of this encounter Visit Diagnoses Not on filedocumented in this encounter"
--- OUTSIDE RECORDS SUMMARY | ~2019-09-03 | XMS | Encounter Summary ---
Demographics + + + | Address | [address] | | | [place] [address] | + + + | Home Phone [...] | Organization | [facility] | | | and [...] Providers + +------+ + | Care Medical Coding Manager Name | Role | Phone | [...] | | | CENTER [address] | [facility] | | | | | [address] [place], [place] | [place] [address] | | | | | [address] | [phone] | | | | | [phone] | | | +--------+ + + + [...]
--- OUTSIDE RECORDS SUMMARY | ~2019-09-03 | XMS | Encounter Summary ---
Demographics + + + | Address | [address] | | | [place] [address] | + + + | Home Phone [...] Providers + +------+ + | Care Supervisor Engine Repair Name | Role | Phone | + [...] Medication Refill | | 2014 | | [place] [address] | | | | | | [address] | | | | | | Mailcode: [place] | | | | | | [facility] Health and | | | | | | [facility] 2 | | | | | | [place], [place] | | | | | | [address] | | | | | | [phone] | | | +--------+ + + + [...]
--- OUTSIDE RECORDS SUMMARY | ~2019-09-03 | XMS | Encounter Summary ---
Demographics + + + | Address | [address] | | | [place] [address] | + + + | Home Phone [...] + + + | Author | [facility] [place] | | | and [place] | + + + | Organization | [facility] | | | and [...] Team Providers + +------+ + | Care Configuration Analyst Name | Role | Phone | [...] | | | [address] [place], [place] | [place] [address] | | | | | [address] | [phone] | | | | | [phone] | | | +--------+ + + + [...]
--- OUTSIDE RECORDS SUMMARY | ~2019-09-03 | XMS | Encounter Summary ---
Demographics + + + | Address | [address] | | | [place] [address] | + + + | Home Phone [...] | Author | [facility] [place] | | | and [place] | + + + | Organization | [facility] [...] Team Providers + +------+ + | Care Photographic Equipment Mechanic Name | Role | Phone | + +------+ + PCP | Unavailable | + +------+ + Encounter Details +--------+ + + + + | Date | Type | Department | Care Team | Description | +--------+ + + + + | 11/02/ | Hospital | [place] [facility] | Nima Sena | | | 2010 | Encounter | HOSPITAL EMERGENCY | [address] | | | | | CENTER [address] | [address] | | | | | [address] [place], [place] | [place] [address] | | | | | [address] | [phone] | | | | | [phone] | | | +--------+ + + + [...]
--- OUTSIDE RECORDS SUMMARY | ~2019-09-03 | XMS | Encounter Summary ---
Demographics + + + | Address | [address] | | | [place] [address] | + + + | Home Phone | | + + + | Preferred Language | Unknown | + + + | Marital Status | Single | + + + | Pentecostalism Affiliation | CHR | + + + [...] Team Providers + +------+ + | Care Lieutenant General Name | Role | Phone | + [...] | Other | | 2015 | | [place] at [facility] [address] | | | | | | [address] | | | | | | Mailcode: Center | | | | | | for Health and | | | | | | [facility], Building [address] | | | | | | [place], [place] | | | | | | [address] | | | | | | [phone] | | | +--------+ + + + [...]
--- OUTSIDE RECORDS SUMMARY | ~2019-09-03 | XMS | Encounter Summary ---
[...] | Organization | [facility] | [...] Team Providers + +------+ + | Care Laboratory Clerk Name | Role | Phone | [...] | | | | [address] [facility] | [place], [place] | | | | | [address] | [address] | | | | | [address] | [phone] | | | | | [phone] | | | +--------+ + + + [...]
--- OUTSIDE RECORDS SUMMARY | ~2019-09-03 | XMS | Encounter Summary ---
Demographics + + + | Address | [address] | | | [place] [address] | + + + | Home Phone [...] Providers + +------+ + | Care Paper Cutter Operator Name | Role | Phone [...] | | | | | | [facility] | | | | | | | Hospital | | | | | | | [place], [place] | | | | | | | [address] | | | | | | | Phone: | | | | | | | [phone] | +--------+--------+ + + + + Encounter Details +--------+ + + + + | Date | Type | Department | Care Team | Description | +--------+ + + + + | 12/10/ | Emergency | [facility] Emergency | | | | 2015 | | Department [address] | | | | [address] | | | | | | [facility] | | | | | | [place], [place] | | | | | | [address] | | | | | | [phone] | | | +--------+ + + + [...] Lopez MD - 12/11/2015 11:18 AM PDTLocation: [facility] Caller: ADITI Glez, pt of Dr. [...] RN says Mr. Glez was last at [facility] in Oct and did not have [...]
--- OUTSIDE RECORDS SUMMARY | ~2019-09-03 | XMS | Encounter Summary ---
Demographics + + + | Address | [address] | | | [place] [address] | + + + | Home Phone [...] | [facility] | | [...] Team Providers + +------+ + | Care Core Maker Helper Name | Role | Phone | [...] [place] | | | | | | [address] | | | | | | [phone] | | | +--------+ + + + [...]
--- OUTSIDE RECORDS SUMMARY | ~2019-09-03 | XMS | Encounter Summary ---
Demographics + + + | Address | [address] | | | [place] [address] | + + + | Home Phone [...] | Organization | [facility] | | [...] Team Providers + +------+ + | Care Lean Leader Name | Role | Phone | + +------+ + | No, Physician | PCP | Unavailable | + +------+ + Encounter Details +--------+ + + + + | Date | Type | Department | Care Team | Description | +--------+ + + + + | 11/21/ | Hospital | [facility] | Emily Green, | | | 2016 | Encounter | [facility] | DO [address] | | | | | MEDICAL [facility] [address] | [place] [address] | | | | | [address] [place], | [phone] | | | | | [place] [address] | | | | | | [phone] | | | +--------+ + + + [...]
--- OUTSIDE RECORDS SUMMARY | ~2019-09-03 | XMS | Encounter Summary ---
Demographics + + + | Address | [address] | | | [place] [address] | + + + | Home Phone [...] | Organization | [facility] [place] | [...] Team Providers + +------+ + | Care Fur Blower Operator Name | Role | Phone | [...] 2015 | | GASTROENTEROLOGY | [address], [place] | | | | | [address] [place] | [address] [place], [place] | | | | | [address] [place], [place] | [address] | | | | | [address] | | | | | | [phone] | | | +--------+ + + + [...]
--- OUTSIDE RECORDS SUMMARY | ~2019-09-03 | XMS | Encounter Summary ---
Demographics + + + | Address | [address] | | | [place] [address] | + + + | Home Phone [...] Team Providers + +------+ + | Care Reverse Logistics Analyst Name | Role | Phone | [...] | | | | | | Mailcode: [address] | | | | | | and | | | | | | [place] [address] | | | | | | [place], [place] | | | | | | [address] | | | | | | [phone] | | | +--------+ + + + [...]
--- OUTSIDE RECORDS SUMMARY | ~2019-09-03 | XMS | Encounter Summary ---
Demographics + + + | Address | [address] | | | [place] [address] | + + + | Home Phone [...] + + + | Author | [facility] | + + + | Organization | [facility] | + + + | Address | Unknown | + + + | Phone | Unavailable | + + + Support + + +---------+ + | Name | Relationship | Address | Phone | + + +---------+ + | Thalia Armani | ECON | Unknown | | + + +---------+ + Care Team Providers + +------+ + | Care Weigh Box Tender Name | Role | Phone | [...] | | 2015 | | Center at [facility] [address] | MD | Review | | | | [address] | | (12/10-12/12/2015 St | | | | Mailcode: Center | | [facility]) | | | | for Health and | | | | | | [facility] [address] | | | | | | [place], [place] | | | | | | [address] | | | | | | [phone] | | | +--------+ + + + [...]
--- OUTSIDE RECORDS SUMMARY | 2019-09-03 15:04 | XMS ---
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 Care History Substance Use/Overdose 02/16/2018 [facility] USE CAUTION WITH NARCOTICS . PATIENT THREATENED STAFF WHEN HE DIDN'T GET NARCOTICS HE WANTED. LEFT AMA WHEN NOT GIVEN NARCOTICS WANTED. PT HAS CHRONIC CONDITION. PATIENT HAS BEEN HELPED FIND PCP FOR CHRONIC ISSUES. PATIENT FIRST PCP APPOINTMENT TODAY - WENT TO CLINIC THIS MORNING AND WAS REMINDED HIS APPOINTMENT IS AT 3PM. STATED HE WOULD BE BACK. CAME TO ED. Medical/Surgical 03/24/2018 [facility] - CHW met with patient and discussed ED utilization. - Patient no showed to PCP apt on 03/16/18. - PCP office is trying to contact patient in regards to pain clinic referral and setting up an apt. Care Recommendation: This patient has had 5 or more Emergency Department visits in the last 12 months.\T\nbsp; Patient requires education on the scope and purpose of the ED as an acute care provider not a Primary Care Provider and should not be utilized for chronic conditions.\T\ nbsp; If patient returns to ED please contact Community Health WorkerRachel at [phone]. These are guidelines and the provider should exercise clinical judgment when providing care. E.D. VISIT COUNT (12 MO.) 1 [facility] 1 [facility] TOTAL 2 NOTE: Visits indicate total known visits. ED/UCC VISIT TRACKING (12 MO.) 09/03/2019 15:01 [facility] [place] TYPE: Emergency COMPLAINT: - POSSIBLE HERNIA 12/26/2018 09:17 [facility] [place] TYPE: Emergency DIAGNOSES: - Personal history of other diseases of the digestive system - ABD PAIN,VOMITING - Generalized abdominal pain INPATIENT VISIT TRACKING (12 MO.) No inpatient visits to display in this time frame [email or web address]
== END 2019-09-03 16:44 | disposition home or self-care (01) ==
LOC: ED 15:00
DX: R10.33 Periumbilical pain (principal); E03.9 Hypothyroidism, unspecified; F41.9 Anxiety disorder, unspecified; J45.909 Unspecified asthma, uncomplicated; Z87.891 Personal history of nicotine dependence; Z88.5 Allergy status to narcotic agent; Z88.6 Allergy status to analgesic agent; Z79.899 Other long term (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
CPT/HCPCS: 74022; 99284-25

== ENCOUNTER 2019-10-07 08:00 | Day surgery (SDC) | payer OTHER ==
[~2019-10-07] VITALS: Ht 157.5 cm; Wt 60.3 kg
== END 2019-10-07 13:45 | disposition home or self-care (01) ==
LOC: DS 08:00
PROC: 0WUF0JZ Supplement Abdominal Wall with Synthetic Substitute, Open Approach (ICD-10-PCS; principal; 2019-10-07)
DX: K43.2 Incisional hernia without obstruction or gangrene (principal); I10 Essential (primary) hypertension; J45.909 Unspecified asthma, uncomplicated; E78.5 Hyperlipidemia, unspecified; E03.9 Hypothyroidism, unspecified; F32.9 Major depressive disorder, single episode, unspecified; K50.90 Crohn's disease, unspecified, without complications; F41.0 Panic disorder [episodic paroxysmal anxiety]; G25.81 Restless legs syndrome; Z98.890 Other specified postprocedural states; Z90.49 Acquired absence of other specified parts of digestive tract; Z88.5 Allergy status to narcotic agent; Z88.6 Allergy status to analgesic agent; Z79.899 Other long term (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; Z87.891 Personal history of nicotine dependence
CPT/HCPCS: C1781; J0131; J0690; J1100; J1170; J1644; J1885; J2405; J2704; J3010; J7121

== ENCOUNTER 2019-10-14 14:37 | Emergency (ER) | payer OTHER ==
[~2019-10-14] VITALS: Ht 157.5 cm; Wt 60.3 kg
[~2019-10-14 14:37] MED LIST changes: +METOPROLOL TART25 MG PO
--- OUTSIDE RECORDS SUMMARY | 2019-10-14 14:40 | XMS ---
PreManage Notification: JOSIE BANGURA Security Academic Affairs Director Events No recent Security Events currently on file CRITERIA MET - Group Notification - PDMP CARE PROVIDERS STIVEN SIBLEY Physician Underground Heavy Equipment Operator 09/05/2019-Current PHONE: [phone] MARQUEZ MAI Family Medicine: Geriatric Medicine Current PHONE: Unknown [facility] Primary Care Current [place] PHONE: Unknown ALEAH HALL Primary Care Garry DIANA PHONE: Unknown PAU MARQUEZ Primary Care Current PHONE: [phone] Itz Lakesha DO Primary Care 03/30/2012-Current PHONE: Unknown Gary has no Care Guidelines for this patient. Care History Substance Use/Overdose 02/16/2018 [facility] USE CAUTION WITH NARCOTICS . PATIENT [...] BE BACK. CAME TO ED. Medical/Surgical 03/24/2018 [facility] - CHW met with patient and [...] ED please contact Community Health WorkerRachel at [phone]. These are guidelines and the provider should exercise clinical judgment when providing care. E.D. VISIT COUNT (12 MO.) 1 [facility] 2 [facility] TOTAL 3 NOTE: Visits indicate total known visits. ED/UCC VISIT TRACKING (12 MO.) 10/14/2019 14:37 [facility] [place] TYPE: Emergency COMPLAINT: - ABDOMINAL PAIN 09/03/2019 15:01 [facility] [place] TYPE: Emergency COMPLAINT: - POSSIBLE HERNIA DIAGNOSES: - Anxiety disorder, unspecified - Hypothyroidism, unspecified - Personal history of nicotine dependence - Other long chain beamer (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 - Allergy status to analgesic agent status - Allergy status to narcotic agent status - Periumbilical pain - Unspecified asthma, uncomplicated 12/26/2018 09:17 [facility] [place] TYPE: Emergency DIAGNOSES: - Personal history of other diseases of the digestive system - ABD PAIN,VOMITING - Generalized abdominal pain INPATIENT VISIT TRACKING (12 MO.) No inpatient visits to display in this time frame [id number]
[2019-10-14] MEDS ORDERED: ONDANSETRON ODT8 MG PO (17:59)
[2019-10-14] MEDS ORDERED: PREDNISONE20 MG PO (17:59)
== END 2019-10-14 18:07 | disposition home or self-care (01) ==
LOC: ED 14:37
DX: K50.90 Crohn's disease, unspecified, without complications (principal); E03.9 Hypothyroidism, unspecified; J45.909 Unspecified asthma, uncomplicated; F41.9 Anxiety disorder, unspecified; Z88.5 Allergy status to narcotic agent; Z79.899 Other long term (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; Z79.51 Long term (current) use of inhaled steroids
CPT/HCPCS: 96361; 96374; 96375; 99284-25; J2405; J2930; J7030

== ENCOUNTER 2020-03-25 15:10 | Emergency (ER) | payer OTHER ==
[~2020-03-25] VITALS: Ht 157.5 cm; Wt 59.0 kg
--- OUTSIDE RECORDS SUMMARY | ~2020-03-25 | XMS | Encounter Summary ---
Demographics + + + | Address | [address] | | | [place] [address] | + + + | Home Phone | | + + + | Preferred Language | Unknown | + + + | Marital Status | Single | + + + | Druze Affiliation | CHR | + + + | Race | White | + + + | Ethnic Group | Not or | + + + Author + + + | Author | [facility] | + + + | Organization | [facility] | + + + | Address | Unknown | + + + | Phone | Unavailable | + + + Support + + +---------+ + | Name | Relationship | Address | Phone | + + +---------+ + | Thalia Armani | ECON | Unknown | | + + +---------+ + Care Team Providers + +------+ + | Care Pit Crew Support Worker Name | Role | Phone | + +------+ + | Meahgan Zhong MD | PCP | | + +------+ + Reason for Visit + + + | Reason | Comments | + + + | Request For Records | | + + + Encounter Details +--------+ + + + + | Date | Type | Department | Care Team | Description | +--------+ + + + + | 11/28/ | Documentati | Digestive Health | [address], | Request For Records | | 2017 | on | Center at [address] | MD | | | | | [address] [place] | | | | | | Mailcode: [place] | | | | | | [facility] and | | | | | | [facility] [address] | | | | | | [place], [place] | | | | | | [address] | | | | | | [phone] | | | +--------+ + + + + Social History + + + +--------+------+ | Tobacco Use | Types | Packs/Day | Years | Date | | | | | Used | | + + + +--------+------+ | Former Smoker | Cigarettes | 0.5 | 7 | | + + + +--------+------+ + +---+---+---+ | Smokeless Tobacco: | | | | | Current User | | | | + +---+---+---+ + + | Comments: quit about 1992 | + + + + +---------+ + | Alcohol Use | Drinks/Week | oz/Week | Comments | + + +---------+ + | No | | | | + + +---------+ + + + + | Sex Assigned at [...]
--- OUTSIDE RECORDS SUMMARY | ~2020-03-25 | XMS | Encounter Summary ---
Demographics + + + | Address | [address] | | | [place] [address] | + + + | Home Phone | | + + + | Preferred Language | Unknown | + + + | Marital Status | Single | + + + | Mormonism Affiliation | CHR | + + + | Race | White | + + + | Ethnic Group | Not or | + + + Author + + + | Author | [facility] | + + + | Organization | [facility] | + + + | Address | Unknown | + + + | Phone | Unavailable | + + + Support + + +---------+ + | Name | Relationship | Address | Phone | + + +---------+ + | Thalia Armani | ECON | Unknown | | + + +---------+ + Care Team Providers + +------+ + | Care Engraving Press Operator Name | Role | Phone | + +------+ + | Meaghan Zhong MD | PCP | | + +------+ + Reason for Visit + + + | Reason | Comments | + + + | Question | | + + + Encounter Details +--------+ + + + + | Date | Type | Department | Care Team | Description | +--------+ + + + + | 05/01/ | Telephone | Digestive Health | [address], | Question | | 2017 | | Center at [facility] [address] | | | | | | [address] | | | | | | Mailcode: Center | | | | | | for Health and | | | | | | [facility], [address] | | | | | | [place], [place] | | | | | | [address] | | | | | | [phone] | | | +--------+ + + + [...] +---+---+---+ + + | Comments: quit about 1991 | + + + + +---------+ + [...]
--- OUTSIDE RECORDS SUMMARY | ~2020-03-25 | XMS | Encounter Summary ---
Demographics + + + | Address | [address] | | | [place] [address] | + + + | Home Phone | | + + + | Preferred Language | Unknown | + + + | Marital Status | Single | + + + | Mandaen Affiliation | CHR | + + + | Race | White | + + + | Ethnic Group | Not or | + + + Author + + + | Author | [facility] | + + + | Organization | [facility] | + + + | Address | Unknown | + + + | Phone | Unavailable | + + + Support + + +---------+ + | Name | Relationship | Address | Phone | + + +---------+ + | Thalia Armani | ECON | Unknown | | + + +---------+ + Care Team Providers + +------+ + | Care Manager Planning Name | Role | Phone | + +------+ + | Meaghan Zhong MD | PCP | | + +------+ + Encounter Details +--------+ + + + + | Date | Type | Department | Care Team | Description | +--------+ + + + + | 12/27/ | Telephone | Digestive Health | Bhargav Jamison MD | | | 2017 | | [place] at [facility] [address] | [address] | | | | | [address] | [address] [place], | | | | | Mailcode: [place] | [place] [address] | | | | | [facility] and | [phone] | | | | | [facility] [address] | | | | | | [place], [place] | | | | | | [address] | | | | | | [phone] | | | +--------+ + + + [...]
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
--- OUTSIDE RECORDS SUMMARY | ~2020-03-25 | XMS | Encounter Summary ---
Demographics + + + | Address | [address] | | | [place] [address] | + + + | Home Phone | | + + + | Preferred Language | Unknown | + + + | Marital Status | Single | + + + | Voodoo Affiliation | CHR | + + + | Race | White | + + + | Ethnic Group | Not or | + + + Author + + + | Author | [facility] | + + + | Organization | [facility] | + + + | Address | Unknown | + + + | Phone | Unavailable | + + + Support + + +---------+ + | Name | Relationship | Address | Phone | + + +---------+ + | Thalia Armani | ECON | Unknown | | + + +---------+ + Care Team Providers + +------+ + | Care Outside Sales Account Manager Name | Role | Phone | + +------+ + | Meaghan Zhong MD | PCP | | + +------+ + Reason for Visit + + + | Reason | Comments | + + + | Suicidal Ideation | | + + + Encounter Details +--------+ + + + + | Date | Type | Department | Care Team | Description | +--------+ + + + + | 04/03/ | Telephone | Digestive Health | [address], | Suicidal Ideation | | 2017 | | [place] [phone] | | | | | | [address] | | | | | | Mailcode: [place] | | | | | | for Health and | | | | | | [facility], [facility] | | | | | | [place], [place] | | | | | | [address] | | | | | | [phone] | | | +--------+ + + + [...]
--- OUTSIDE RECORDS SUMMARY | ~2020-03-25 | XMS | Encounter Summary ---
Demographics + + + | Address | [address] | | | [place] [address] | + + + | Home Phone | | + + + | Preferred Language | Unknown | + + + | Marital Status | Single | + + + | Restorationism Affiliation | CHR | + + + | Race | White | + + + | Ethnic Group | Not or | + + + Author + + + | Organization | Unknown | + + + | Address | Unknown | + + + | Phone | Unavailable | + + + Support + + +---------+ + | Name | Relationship | Address | Phone | + + +---------+ + | Thalia Lomeli | SHABANA | Unknown | | + + +---------+ + Care Team Providers + +------+ + | Care Actimize Architect Name | Role | Phone | + +------+ + | Meaghan Zhong MD | PCP | | + +------+ + Encounter Details +--------+ + + + + | Date | Type | Department | Care Team | Description | +--------+ + + + + | 09/16/ | Procedure - | | Hong Todd MD | Operative Report | | 2006 | | | | | | | Transcribed | | | | +--------+ + + + + Social History + + + +--------+------+ | Tobacco Use | Types | Packs/Day | Years | Date | | | | | Used | | + + + +--------+------+ | Former Smoker | Cigarettes | 0.5 | 7 | | + + + +--------+------+ + + | Comments: quit about 1991 [...] | + +--------+ + + + | OPERATION RECORD | | 09/16/2007 | | Results for this | | | | 12:00 AM | | procedure are in the | | | | PST | | results section. | + +--------+ + + + documented in this encounter Results OPERATION RECORD (09/16/2007 12:00 AM PST) + + | Procedure Note | + + | Hong Todd MD - 09/16/2007 12:00 AM PST [id number] | | [id number] [place] [id number] | | [id number] Date: 09/16/2007 Attending Surgeon: Bea Parks M.D. Tree Specialist(s): Hong Perez | | Jayda Todd Preoperative Diagnosis(es): Unwanted colostomy as well as large parastomal | | hernia. Postoperative Diagnosis(es): Unwanted colostomy as well as large parastomal | | hernia. Procedures Performed: 1. Colostomy takedown. 2. Primary repair of parastomal | | hernia. 3. Lysis of adhesions. Anesthesia: General endotracheal. Indications: This is | | a 37-year-old male who has had previous emergency room visits for anal pain. He had a | | previous fistulotomy performed in 2005. Following this, he required an exploratory | | laparotomy; identifying a distended colon, the area was irrigated and washed out, and an | | end colostomy was performed. Since the surgery, he developed a bulge surrounding his | | ostomy site suggestive of parastomal hernia. He is currently here for both repair of his | | parastomal hernia as well as closure of his colostomy. Findings Upon Procedure: A | | large parastomal hernia located around colostomy site. This included some omental fat. | | This was promptly reduced without any problems. The bowel appeared to be okay. Very long | | Jaquez's pouch (mid-descending colon). A handsewn end-to-end anastomosis was performed | | in the usual fashion in 2 layers. The patient otherwise tolerated the procedure well. | | We were able to perform colon sigmoidoscopy following the anastomosis confirming that | | there was no evidence of leak after air insufflation. Procedure: The patient was | | correctly identified, taken to the operating room. SCD's were placed on his legs. | | General endotracheal anesthesia was induced. A jefferson catheter was placed in the usual | | sterile fasion. He was prepped and draped in the usual sterile fashion. A midline | | incision was performed taking down through his previous incision site down to the | | fascial layer and into his peritoneum without any complication. At that point, we | | promptly lysed adhesions and then identified the area at which point his colostomy was | | exiting his peritoneum. We were able to dissect adhesions intraperitoneally initially, | | and then, we were unable to extend the procedure further. We then took down the | | colostomy site from the skin surface downwards using Bovie cautery, Lonestar retraction, | | and some sharp dissection to get into the parastomal hernia sac. Once the colostomy | | was freed from the hernia sac, we were successfully able to reduce the sigmoid | | colostomy. At that point, we removed the parastomal hernia sac. Attention was then made | | towards the left abdomen where a long Jaquez stump (mid-descending colon) was tacked | | up to the abdominal wall. We were able to free enough of the Aj's pouch up in | | order to perform an end-to-end anastomosis. The end of the colostomy site was resected | | with a stapler. Both ends were lined up. We created a back wall of 3-0 silk Lembert | | sutures. The staple lines were excised. The mucosa was closed with 2 running 3-0 | | Polysorb sutures. Near the completion of the mucosal closure, there was difficulty in | | size discrepancy. Therefore, we actually had to redo the mucosal close. We then | | completed 2-layer hand sewn anastomosis using 3-0 silks in a Lembert fashion. At that | | point, the anastomosis looked well. We performed a sigmoidoscopy with air insufflation | | with no evidence of leak. There was no evidence of bleeding as well. At that point, the | | sigmoidoscopy was terminated, and we proceeded to place as much omentum around the | | anastomosis as possible. The parastomal hernia was then closed using #1 Maxon in an | | interrupted [id number] fashion. Then, we proceeded to close the fascia using #1 | | PDS double-looped sutures. The wounds were irrigated. The skin of the midline incision | | was closed with tiffany. The former colostomy wound was then packed with gauze. Sterile | | dressings were then applied. Dr. Bea Parks was present and scrubbed for the entire | | procedure. Hong Todd M.D. Bea Parks M.D. / [id number] / [id number] / | | [id number] / [id number] Electronically signed by Bea Parks 11-25-2007 | | 03:42:19 PM | | fascial layer and into his peritoneum without any complication. At that | | point, we promptly lysed adhesions and then identified the area at which | | point his colostomy was exiting his peritoneum. We were able to dissect | | adhesions intraperitoneally initially, and then, we were unable to extend | | the procedure further. We then took down the colostomy site from the | | skin surface downwards using Bovie cautery, Lonestar retraction, and | | some sharp dissection to get into the parastomal hernia sac. Once the | | colostomy was freed from the hernia sac, we were successfully able to | | reduce the sigmoid colostomy. At that point, we removed the parastomal | | hernia sac. | | | | Attention was then made towards the left abdomen where a long Jaquez | | stump (mid-descending colon) was tacked up to the abdominal wall. We | | were able to free enough of the Aj's pouch up in order to perform an | | end-to-end anastomosis. The end of the colostomy site was resected with | | a stapler. Both ends were lined up. We created a back wall of 3-0 | | silk Lembert sutures. The staple lines were excised. The mucosa was | | closed with 2 running 3-0 Polysorb sutures. Near the completion of the | | mucosal closure, there was difficulty in size discrepancy. Therefore, | | we actually had to redo the mucosal close. We then completed 2-layer | | hand sewn anastomosis using 3-0 silks in a Lembert fashion. At that | | point, the anastomosis looked well. We performed a sigmoidoscopy with | | air insufflation with no evidence of leak. There was no evidence of | | bleeding as well. At that point, the sigmoidoscopy was terminated, and | | we proceeded to place as much omentum around the anastomosis as possible. | | The parastomal hernia was then closed using #1 Maxon in an interrupted | | [id number] fashion. Then, we proceeded to close the fascia using | | #1 PDS double-looped sutures. The wounds were irrigated. The skin of | | the midline incision was closed with tiffany. The former colostomy | | wound was then packed with gauze. Sterile dressings were then applied. | | | | | | Dr. Bea Parks was present and scrubbed for the entire procedure. | | | | | | | | | | Hong Todd M.D. | | | | | | | | Bea Parks M.D. | | | | / | | [id number] / [id number] / [id number] / [id number] | | | | | | | | | | | | Electronically signed by Bea Parks 11-25-2007 03:42:19 PM | | | | | + + documented in this encounter Visit Diagnoses Not on filedocumented in this encounter"
--- OUTSIDE RECORDS SUMMARY | ~2020-03-25 | XMS | Encounter Summary ---
Demographics + + + | Address | [address] | | | [place] [address] | + + + | Home Phone [...] Author + + + | Author | [facility] | + + + | Organization | [facility] | + + + | Address | Unknown | + + + | Phone | Unavailable | + + + Support + + +---------+ + | Name | Relationship | Address | Phone | + + +---------+ + | Thalia Armani | ECON | Unknown | | + + +---------+ + Care Team Providers + +------+ + | Care Journalism Professor Name | Role | Phone | + +------+ + | Meaghan Zhong MD | PCP | | + +------+ + Reason for Visit + + + | Reason | Comments | + + + | Medical Records | 04/09/2016 EGD/Colonoscopy reports and Pathology report - | | Review | Judith Basinalvin Watson | + + + Encounter Details +--------+ + + + + | Date | Type | Department | Care Team | Description | +--------+ + + + + | 04/18/ | Abstract | Digestive Health | [address], | Medical Records | | 2016 | | Center at [facility] [address] | MD | Review (04/09/2016 | | | | [place] | | EGD/Colonoscopy | | | | Mailcode: Center | | reports and | | | | for Health and | | Pathology report - | | | | [facility] | | [facility] | | | | [place], [place] | | [place] | | | | [address] | | | | | | [phone] | | | +--------+ + + + [...]
--- OUTSIDE RECORDS SUMMARY | ~2020-03-25 | XMS | Encounter Summary ---
Demographics + + + | Address | [address] | | | [place] [address] | + + + | Home Phone | | + + + | Preferred Language | Unknown | + + + | Marital Status | Single | + + + | Bahai Affiliation | CHR | + + + | Race | White | + + + | Ethnic Group | Not or | + + + Author + + + | Author | [facility] | + + + | Organization | [facility] | + + + | Address | Unknown | + + + | Phone | Unavailable | + + + Support + + +---------+ + | Name | Relationship | Address | Phone | + + +---------+ + | Thalia Armani | ECON | Unknown | | + + +---------+ + Care Team Providers + +------+ + | Care Saw Setter Name | Role | Phone | + +------+ + | Meaghan Zhong MD | PCP | | + +------+ + Reason for Visit + + + | Reason | Comments | + + + | Referral To | | | Gastroenterology | | + + + Encounter Details +--------+ + + + + | Date | Type | Department | Care Team | Description | +--------+ + + + + | 02/28/ | Abstract | Dig[facility]ive Health | Clinic, | Referral To | | 2014 | | Center at [facility] | Gastroenterology | Gastroenterology | | | | [place] | | | | | | Mailcode: Center | | | | | | [facility] and | | | | | | [facility] | | | | | | [place], [place] | | | | | | [address] | | | | | | [phone] | | | +--------+ + + + [...]
--- OUTSIDE RECORDS SUMMARY | ~2020-03-25 | XMS | Encounter Summary ---
Demographics + + + | Address | [address] | | | [place] [address] | + + + | Home Phone | | + + + | Preferred Language | Unknown | + + + | Marital Status | Single | + + + | Orthodox Affiliation | 1013 | + + + | Race | Unknown | + + + | Ethnic Group | Unknown | + + + Author + + + | Author | [facility] | | | and [place] | + + + | Organization | [facility] | | | and [place] | [...] Team Providers + +------+ + | Care Cna Hospice Name | Role | Phone | + +------+ + PCP | Unavailable | + +------+ + Encounter Details +--------+ + + + + | Date | Type | Department | Care Team | Description | +--------+ + + + + | 09/19/ | Hospital | [facility] | | | 2009 | Encounter | [facility] [address] | [address] | | | | | [place] | [address] | | | | | [place], [place] | [place] [address] | | | | | [address] | [phone] | | | | | [phone] | | | +--------+ + + + [...]
--- OUTSIDE RECORDS SUMMARY | ~2020-03-25 | XMS | Encounter Summary ---
Demographics + + + | Address | [address] | | | [place] [address] | + + + | Home Phone | | + + + | Preferred Language | Unknown | + + + | Marital Status | Single | + + + | Christian Affiliation | CHR | + + + [...] Team Providers + +------+ + | Care Master Machinist Name | Role | Phone | + [...] Todd MD - 09/16/2007 12:00 AM PST [id number] | | [id number] [place] [address] [id number] | | [id number] Date: 09/16/2007 Attending Surgeon: Bea Parks M.D. Narcotics Agent(s): Hong Perez | | Jayda Todd Preoperative [...] #1 Maxon in an | | interrupted btctak-hl-krwkw fashion. Then, we proceeded to close the [...] Hong Todd M.D. Bea Parks M.D. / [id number] / [id number] / | | [id number] / [id number] Electronically signed by Bea Parks 11-25-2007 | [...] towards the left abdomen where a long Jqauez | | stump (mid-descending colon) was tacked [...] #1 Maxon in an interrupted | | qijcng-eg-avopa fashion. Then, we proceeded to close the [...] | | | | / | | [id number] / [id number] / [id number] / [id number] | | | | | | | | | | | | Electronically signed by Bea Parks 11-25-2007 03:42:19 PM | | | | | + + documented in this encounter Visit Diagnoses Not on filedocumented in this encounter"
--- OUTSIDE RECORDS SUMMARY | ~2020-03-25 | XMS | Encounter Summary ---
Demographics + + + | Address | [address] | | | [place] [address] | + + + | Home Phone | | + + + | Preferred Language | Unknown | + + + | Marital Status | Single | + + + | Gnosticist Affiliation | 1013 | + + + | Race | Unknown | + + + | Ethnic Group | Unknown | + + + Author + + + | Author | [facility] [place] | | | and [place] | + + + | Organization | [facility] | | | and [place] [...] Team Providers + +------+ + | Care Quarry Supervisor Open Pit Name | Role | Phone | + +------+ + | No, Physician | PCP | Unavailable | + +------+ + Encounter Details +--------+ + + + + | Date | Type | Department | Care Team | Description | +--------+ + + + + | 11/11/ | Hospital | [facility] | Andrew [facility] | | | 2015 | Encounter | [facility] EMERGENCY | [address] | | | | | [address] | [address] | | | | | [address] [place], [place] | [place] [address] | | | | | [address] | [phone] | | | | | [phone] | | | +--------+ + + + [...] + + + +---------+ + + | polyethylene | Take 4,000 mLs by | 4000 mL | 0 | 11/14/19 | | | glycol-electrolytes | mouth once for 1 | | | 15 | 5 | | (NULYTELY WITH | dose. DRINK /2 PREP | | | | | | FLAVOR PACKS) 420 G | 4 pm Feb 18, DRINK | | | | | | solution | 2ND HALF PREP 5 am | | | | | | | Feb 19. | | | | | + + [...]
--- OUTSIDE RECORDS SUMMARY | ~2020-03-25 | XMS | Encounter Summary ---
Demographics + + + | Address | [address] | | | [place] [address] | + + + | Home Phone | | + + + | Preferred Language | Unknown | + + + | Marital Status | Single | + + + | Latter Day Affiliation | 1013 | + + + | Race | Unknown | + + + | Ethnic Group | Unknown | + + + Author + + + | Author | [facility] | | | and [place] | + + + | Organization | [facility] [...] Team Providers + +------+ + | Care Health Director Name | Role | Phone | + +------+ + | No, Physician | PCP | Unavailable | + +------+ + Reason for Visit + + + | Reason | Comments | + + + | Abdominal Pain | | | (Severe) | | + + + Encounter Details +--------+ + + + + | Date | Type | Department | Care Team | Description | +--------+ + + + + | 04/14/ | Emergency | [facility] | Mabel Wallace | Abdominal pain | | 2013 | [facility] | DO Shayne Man | (Primary Dx); | | | | CENTER [address] | [place], [place] | Epigastric pain | | | | [place], [place] | [address] | | | | | [address] | | | | | | [phone] | | | +--------+ + + + [...] + + + | Blood Pressure | - | - | | + + + + + | Pulse | 46 | 04/14/2014 1:31 PM | | | | | PDT | | + + + + + | Temperature | 36.8 C (98.3 F) | 04/14/2014 1:31 PM | | | | | PDT | | + + + + + | Respiratory Rate | 18 | 04/14/2014 1:31 PM | | | | | PDT | | + + + + + | Oxygen Saturation | 100% | 04/14/2014 1:31 PM | | | | | PDT | | + + + + + | Inhaled Oxygen | - | - | | | Concentration | | | | + + + + + | Weight | 67.1 kg (148 lb) | 04/14/2014 1:31 PM | | | | | PDT | | + + + + + | Height | 157.5 cm (5' 2") | 04/14/2014 1:31 PM | | | | | PDT | | + + + + + | Body Mass Index | 27.07 | 04/14/2014 1:31 PM | | | | | PDT | | + + + + + documented in this encounter Discharge Instructions Instructions Mabel Wallace MD - 04/14/2014Home and rest Clear liquids for twenty four hours then advance diet As tolerated Follow up with Dr Cuenca REturn to ER if pain worse documented in this encounter Medications at Time [...] + + documented as of this encounter ED Notes Jared Cook RN - 04/14/2014 3:43 PM PDTDc with instructions pt states he feels much be tter mild lower left abd pain noted oMabel ta MD - 04/14/2014 2:07 PM PDTFormatting of this note dank ht be different from the original. [facility] Rachid Glez Emergency Department Encounter Note [address] [place] [id number] PCP:Physician No [phone] CHIEF COMPLAINT Chief Complaint Patient presents with Abdominal Pain (Severe) HPI Rachid Glez is a 43 y.o. male who presents with chief complaint of abdominal pain .. The patient was just over an endoscopy having an upper GI performed in developed severe abdominal pain. The patient was sent over by Dr. Carvalho. On arrival patient is complaining of severe epigastric pain. He states it's been ongoing now for over an hour. He does still nauseated but has not thrown up and he denies any blood in his stool. He has a history of reflux disease his upper endoscopy looks normal today PAST MEDICAL HISTORY Past Medical History Diagnosis Date Crohn's disease (HCC) hospitalized 11/03/12-11/07/12 at [facility] for crohn's flare Asthma Hypothyroidism Hx of head injury Allergy GERD (gastroesophageal reflux disease) Depression Transaminitis 11/07/12 improving H/O medication noncompliance 11/07/12 SURGICAL HISTORY Past Surgical History Procedure Date Cholecystectomy Elbow surgery, right Abdominal hernia repair x4 Egd and colonoscopy 03/21/09 Egd and colonoscopy 10/23/10 Normal colonoscopy. Hiatal hernia, esophagitis, duodenitis. Colonoscopy Upper gastrointestinal endoscopy Fibula fracture surgery right CURRENT MEDICATIONS Previous Medications ALBUTEROL (PROAIR HFA) 90 MCG/PUFF INHALER 2 puffs inhaled every 4 hours as needed for shortness of breath CLIDINIUM-CHLORDIAZEPOXIDE (LIBRAX) 2.5-5 MG PER CAPSULE 1 to 2 caps by mouth four time s a day HYDROCODONE-ACETAMINOPHEN (NORCO) 5-325 MG PER TABLET Take 1 tablet by mouth every 6 ho urs as needed. LEVOTHYROXINE (SYNTHROID) 125 MCG TABLET Take 125 mcg by mouth every morning (before br eakfast). MONTELUKAST (SINGULAIR) 10 MG TABLET Take 10 mg by mouth nightly. OMEPRAZOLE (PRILOSEC) 20 MG TBEC Take 20 mg by mouth Daily. PREDNISONE by Does not apply route. Take as directed PREDNISONE (DELTASONE) 10 MG TABLET Take 3 tablets by mouth Daily. SULFASALAZINE (AZULFIDINE) 500 MG TABLET Take three by mouth twice daily ALLERGIES Allergies Allergen Reactions Morphine Nausea And Vomiting shaking FAMILY HISTORY Family History Problem Relation Age of Onset Asthma Mother Stroke Mother Other (See Comment) Mother HYPOTHYROIDISM Colon cancer Mother Heart surgery Mother CABG x 2 Prostate cancer Father 62 Cancer Father 62 PROSTATE Osteoarthritis Sister SOCIAL HISTORY History Social History Marital Status: Single Spouse Name: N/A Number of Children: N/A Years of Education: N/A Social History Main Topics Smoking status: Former Smoker Smokeless tobacco: Current User Types: Chew Alcohol Use: No Drug Use: No Sexually Active: None Other Topics Concern None Social History Narrative None REVIEW OF SYSTEMS Review of systems is negative except as mentioned in the HPI PHYSICAL EXAM VITAL SIGNS: (first vital signs):Temp: 36.8 C (98.3 F) Pulse: 46 Resp: 18 SpO2: 100 % Physical Exam Nursing note and vitals reviewed. Constitutional: He is oriented to person, place, and time. He appears well-developed and we ll-nourished. Cardiovascular: Regular rhythm and normal heart sounds. Patient is slightly bradycardic but says he is all the time Pulmonary/Chest: Effort normal and breath sounds normal. Abdominal: Soft. Bowel sounds are normal. He exhibits no distension. There is Tenderness: t he patient has diffuse tenderness on exam mostly in the right lower quadrant.. There is no r ebound and no guarding. Neurological: He is alert and oriented to person, place, and time. Skin: Skin is warm and dry. Psychiatric: He has a normal mood and affect. Results for orders placed during the hospital encounter of 04/14/14 CBC WITH DIFFERENTIAL Component Value Range WBC 10.4 4.0-11.0 K/uL RBC 3.75 (*) 4.30-5.70 M/uL Hgb 12.7 (*) 13.5-18.0 g/dL Hct 37.8 (*) 40.0-51.0 % MCV 100.7 83.0-101.0 fL MCH 33.9 28.0-35.0 pg MCHC 33.6 32.0-36.0 g/dL RDW 13.9 <15.0 % Platelet Count 208 140-440 K/uL MPV 7.6 % Neutrophils 69.8 45.0-82.0 % % Lymphocytes 22.9 20.0-45.0 % % Monocytes 4.8 4.0-12.0 % % Eosinophils 1.9 0.0-5.0 % % Basophils 0.6 0.0-1.0 % Absolute Neutrophils 7.20 1.80-8.50 K/uL Absolute Lymphocytes 2.40 0.60-3.20 K/uL Absolute Monocytes 0.50 0.00-1.00 K/uL Absolute Eosinophils 0.20 0.00-0.40 K/uL Absolute Basophils 0.10 0.00-0.10 K/uL COMPREHENSIVE METABOLIC PANEL Component Value Range NA 137 136-149 mmol/L K 3.7 3.5-5.1 mmol/L CL 102 98-109 mmol/L CO2 24 24-31 mmol/L ANION GAP 11 3-16 mmol/L GLUCOSE 96 70-109 mg/dL BUN 7 7-18 mg/dL Creatinine, Serum 1.07 0.60-1.30 mg/dL eGFR if not >60 >=60 mL/min/1.73m2 CALCIUM 8.3 8.3-10.5 mg/dL ALBUMIN 3.2 3.2-5.0 g/dL BILIRUBIN TOTAL 0.5 0.1-1.5 mg/dL Total protein 5.1 (*) 6.0-7.8 g/dL AST 29 10-42 U/L ALT 35 6-45 U/L ALK PHOS 43 40-110 U/L GLOBULIN 1.9 Albumin/Globulin ratio 1.7 BUN/CREA 6.5 LIPASE Component Value Range LIPASE 22 0-60 U/L RADIOLOGY CT of the abdomen pelvis shows a no perforation. There is retained gas and stool as well a t some thickening of the colon wall ED COURSE & MEDICAL DECISION MAKING Pertinent Labs & Imaging studies reviewed. (See chart for details) Patient seen and examined upon arrival. Patient had an IV already placed from endoscopy an d was given Dilaudid and Zofran with good relief of pain. The patient went down to CT of th e abdomen pelvis with IV contrast which showed no perforation and no acute process. It did show that he had some mild pancolonic wall thickening that was unable to be evaluated today during lower endoscopy because of too much stool retention. Patient came back from CT he sa id he felt fine. Basic labs including a CBC and a BMP were normal. Patient up and ambulate d in the ER and was feeling fine and subsequently discharged home. Pt to follow up with Dr Cuenca and his PCP and certainly return if sympoms worsened. Pt comfortable with plan Last Set of Vital Signs: Temp: 36.8 C (98.3 F) Pulse: 46 Resp: 18 SpO2: 100 % FINAL IMPRESSION 1. Abdominal pain Follow-up Information Please follow up. (As needed) Mabel Wallace MD 04/14/14 1832 Mabel Wallace MD 04/15/14 1132 documented in this encounter Miscellaneous Notes Plan of Care - [facility] - 04/17/2014 12:00 AM PDT D Triage Notes - Jared Cook, RN - 04/14/2014 1:31 PM PDT abd pain started after colonoscopy procedure earlier documented in this encounter Plan of Treatment Not on filedocumented as of this encounter Procedures + +--------+ + + + | Procedure Name | Priori | Date/Time | Associated Diagnosis | Comments | | | ty | | | | + +--------+ + + + | CBC WITH | STAT | 04/14/2014 | | Results for this | | DIFFERENTIAL | | 2:15 PM | | procedure are in the | | | | PDT | | results section. | + +--------+ + + + | LIPASE | Add-On | 04/14/2014 | | Results for this | | | | 2:15 PM | | procedure are in the | | | | PDT | | results section. | + +--------+ + + + | COMPREHENSIVE | STAT | 04/14/2014 | | Results for this | | METABOLIC PANEL | | 2:15 PM | | procedure are in the | | | | PDT | | results section. | + +--------+ + + + | CT ABDOMEN PELVIS W | STAT | 04/14/2014 | | Results for this | | CONTRAST | | 2:00 PM | | procedure are in the | | | | PDT | | results section. | + +--------+ + + + documented in this encounter Results Lipase (04/14/2014 2:15 PM PDT) + +-------+ + + + | Component | Value | Ref Range | Performed | Pathologist | | | | | At | Signature | + +-------+ + + + | Lipase | 22 | 0 - 60 U/L | [facility] | | | | | [facility] | | | | | | [facility] | | | | | | [facility] - | | | | | | LABORATORY | | + +-------+ + + + + + | Specimen | + + | Blood | + + + + + + + | Performing | Address | City/State/Zipcode | Phone Number | | Organization | | | | + + + + + | [facility] | [address] | [place] | [phone] | | [facility] | | [address] | | | - LABORATORY | | | | + + + + + | [facility] | [address] | [place] | | | [facility] | | [phone], [facility] | | | - LABORATORY | | | | + + + + + Comprehensive Metabolic Panel (04/14/2014 2:15 PM PDT) + + + + + + | Component | Value | Ref Range | Performed | Pathologist | | | | | At | Signature | + + + + + + | Na | 137 | 136 - 149 | [facility] | | | | | mmol/L | [facility] | | | | | | MEDICAL | | | | | | CENTER - | | | | | | LABORATORY | | + + + + + + | K | 3.7 | 3.5 - 5.1 | [facility] | | | | | mmol/L | [facility] | | | | | | MEDICAL | | | | | | CENTER - | | | | | | LABORATORY | | + + + + + + | Cl | 102 | 98 - 109 mmol/L | [facility] | | | | | | [facility] | | | | | | MEDICAL | | | | | | CENTER - | | | | | | LABORATORY | | + + + + + + | CO2 | 24 | 24 - 31 mmol/L | [facility] | | | | | | [facility] | | | | | | MEDICAL | | | | | | CENTER - | | | | | | LABORATORY | | + + + + + + | Anion Gap | 11 | 3 - 16 mmol/L | [facility] | | | | | | [facility] | | | | | | MEDICAL | | | | | | CENTER - | | | | | | LABORATORY | | + + + + + + | Glucose | 96 | 70 - 109 mg/dL | [facility] | | | | | | [facility] | | | | | | MEDICAL | | | | | | CENTER - | | | | | | LABORATORY | | + + + + + + | BUN | 7 | 7 - 18 mg/dL | [facility] | | | | | | [facility] | | | | | | MEDICAL | | | | | | CENTER - | | | | | | LABORATORY | | + + + + + + | Creatinine | 1.07 | 0.60 - 1.30 | [facility] | | | | | mg/dL | [facility] | | | | | | MEDICAL | | | | | | CENTER - | | | | | | LABORATORY | | + + + + + + | eGFR if not | >60Comment: GLOMERULAR | >=60 | [facility] | | | | FILTRATION | mL/min/1.73m2 | [facility] | | | [place] | RATE,ESTIMATED | | MEDICAL | | | | mL/min/1.06p0Cpwm than | | CENTER - | | | | 60 Chronic kidney | | LABORATORY | | | | disease,if found over a | | | | | | 3-month period.Less than | | | | | | 15 Kidney failureFor | | | | | | | | | | | | Americans,multiply the | | | | | | calculated GFR by 1.21. | | | | | | | | | | + + + + + + | Calcium | 8.3 | 8.3 - 10.5 | [facility] | | | | | mg/dL | [facility] | | | | | | MEDICAL | | | | | | CENTER - | | | | | | LABORATORY | | + + + + + + | Albumin | 3.2 | 3.2 - 5.0 g/dL | [facility] | | | | | | [facility] | | | | | | MEDICAL | | | | | | CENTER - | | | | | | LABORATORY | | + + + + + + | Bilirubin | 0.5 | 0.1 - 1.5 mg/dL | [facility] | | | Total | | | [facility] | | | | | | MEDICAL | | | | | | CENTER - | | | | | | LABORATORY | | + + + + + + | Total | 5.1 (L) | 6.0 - 7.8 g/dL | [facility] | | | Protein | | | [facility] | | | | | | MEDICAL | | | | | | CENTER - | | | | | | LABORATORY | | + + + + + + | AST | 29 | 10 - 42 U/L | [facility] | | | | | | [facility] | | | | | | MEDICAL | | | | | | CENTER - | | | | | | LABORATORY | | + + + + + + | ALT | 35 | 6 - 45 U/L | [facility] | | | | | | [facility] | | | | | | MEDICAL | | | | | | CENTER - | | | | | | LABORATORY | | + + + + + + | Alkaline | 43 | 40 - 110 U/L | [facility] | | | Phosphatase | | | [facility] | | | | | | MEDICAL | | | | | | CENTER - | | | | | | LABORATORY | | + + + + + + | Globulin | 1.9 | g/dL | [facility] | | | | | | [facility] | | | | | | MEDICAL | | | | | | CENTER - | | | | | | LABORATORY | | + + + + + + | Albumin/Bonny | 1.7 | | [facility] | | | bulin Ratio | | | [facility] | | | | | | MEDICAL | | | | | | CENTER - | | | | | | LABORATORY | | + + + + + + | BUN/Creatin | 6.5 | | [facility] | | | ine Ratio | | | [facility] | | | | | | MEDICAL | | | | | | CENTER - | | | | | | LABORATORY | | + + + + + + + + | Specimen | + + | Blood | + + + + + + + | Performing | Address | City/State/Zipcode | Phone Number | | Organization | | | | + + + + + | [facility] | [address] | [place] | [phone] | | [facility] | | [phone] | | | - LABORATORY | | | | + + + + + | [facility] | [address] | [place] | | | [facility] | | [phone], [facility] | | | - LABORATORY | | | | + + + + + CBC with Differential (04/14/2014 2:15 PM PDT) + + + + + + | Component | Value | Ref Range | Performed | Pathologist | | | | | At | Signature | + + + + + + | WBC | 10.4 | 4.0 - 11.0 K/uL | [facility] | | | | | | [facility] | | | | | | MEDICAL | | | | | | CENTER - | | | | | | LABORATORY | | + + + + + + | RBC | 3.75 (L) | 4.30 - 5.70 | [facility] | | | | | M/uL | [facility] | | | | | | MEDICAL | | | | | | CENTER - | | | | | | LABORATORY | | + + + + + + | Hemoglobin | 12.7 (L) | 13.5 - 18.0 | [facility] | | | | | g/dL | [facility] | | | | | | MEDICAL | | | | | | CENTER - | | | | | | LABORATORY | | + + + + + + | Hematocrit | 37.8 (L) | 40.0 - 51.0 % | [facility] | | | | | | [facility] | | | | | | MEDICAL | | | | | | CENTER - | | | | | | LABORATORY | | + + + + + + | MCV | 100.7 | 83.0 - 101.0 fL | [facility] | | | | | | [facility] | | | | | | MEDICAL | | | | | | CENTER - | | | | | | LABORATORY | | + + + + + + | MCH | 33.9 | 28.0 - 35.0 pg | [facility] | | | | | | [facility] | | | | | | MEDICAL | | | | | | CENTER - | | | | | | LABORATORY | | + + + + + + | MCHC | 33.6 | 32.0 - 36.0 | [facility] | | | | | g/dL | [facility] | | | | | | MEDICAL | | | | | | CENTER - | | | | | | LABORATORY | | + + + + + + | RDW-CV | 13.9 | <15.0 % | [facility] | | | | | | [facility] | | | | | | MEDICAL | | | | | | CENTER - | | | | | | LABORATORY | | + + + + + + | Platelet | 208 | 140 - 440 K/uL | [facility] | | | Count | | | [facility] | | | | | | MEDICAL | | | | | | CENTER - | | | | | | LABORATORY | | + + + + + + | MPV | 7.6 | fL | [facility] | | | | | | [facility] | | | | | | MEDICAL | | | | | | CENTER - | | | | | | LABORATORY | | + + + + + + | % | 69.8 | 45.0 - 82.0 % | [facility] | | | Neutrophils | | | [facility] | | | | | | MEDICAL | | | | | | CENTER - | | | | | | LABORATORY | | + + + + + + | % | 22.9 | 20.0 - 45.0 % | [facility] | | | Lymphocytes | | | [facility] | | | | | | MEDICAL | | | | | | CENTER - | | | | | | LABORATORY | | + + + + + + | % Monocytes | 4.8 | 4.0 - 12.0 % | [facility] | | | | | | [facility] | | | | | | MEDICAL | | | | | | CENTER - | | | | | | LABORATORY | | + + + + + + | % | 1.9 | 0.0 - 5.0 % | [facility] | | | Eosinophils | | | [facility] | | | | | | MEDICAL | | | | | | CENTER - | | | | | | LABORATORY | | + + + + + + | % Basophils | 0.6 | 0.0 - 1.0 % | [facility] | | | | | | [facility] | | | | | | MEDICAL | | | | | | CENTER - | | | | | | LABORATORY | | + + + + + + | Absolute | 7.20 | 1.80 - 8.50 | [facility] | | | Neutrophils | | K/uL | [facility] | | | | | | MEDICAL | | | | | | CENTER - | | | | | | LABORATORY | | + + + + + + | Absolute | 2.40 | 0.60 - 3.20 | [facility] | | | Lymphocytes | | K/uL | [facility] | | | | | | MEDICAL | | | | | | CENTER - | | | | | | LABORATORY | | + + + + + + | Absolute | 0.50 | 0.00 - 1.00 | [facility] | | | Monocytes | | K/uL | [facility] | | | | | | MEDICAL | | | | | | CENTER - | | | | | | LABORATORY | | + + + + + + | Absolute | 0.20 | 0.00 - 0.40 | [facility] | | | Eosinophils | | K/uL | [facility] | | | | | | MEDICAL | | | | | | CENTER - | | | | | | LABORATORY | | + + + + + + | Absolute | 0.10 | 0.00 - 0.10 | [facility] | | | Basophils | | K/uL | [facility] | | | | | | MEDICAL | | | | | | CENTER - | | | | | | LABORATORY | | + + + + + + + + | Specimen | + + | Blood | + + + + + + + | Performing | Address | City/State/Zipcode | Phone Number | | Organization | | | | + + + + + | [facility] | [address] | [place] | [phone] | | [facility] | | [address] | | | - LABORATORY | | | | + + + + + | [facility] | [address] | [place] | | | [facility] | | [phone] [place] [address] | | | - LABORATORY | | | | + + + + + CT Abdomen Pelvis w Contrast (04/14/2014 2:00 PM PDT) + + | Specimen | + + | | + + + + + | Narrative | Performed At | + + + | CT ABDOMEN PELVIS W CONTRAST 04/14/2014 1:50 PM HISTORY: | MISCELANIOUS | | ABDOMINAL PAIN (SEVERE). COMPARISON: Multiple prior CT scans of | LAB | | the abdomen and pelvis most recently 07/07/2011. PROTOCOL: Axial | | | images of the abdomen and pelvis were obtained after uneventful | | | administration of 85 mL Omnipaque 350. Coronal and sagittal | | | reformations were acquired. ABDOMEN FINDINGS: Two tiny calcified | | | nodules are present of the right lung base that most likely | | | represent previous granulomatous disease. The heart is of normal size. | | | The liver is mildly enlarged, measuring 17.4 cm. Cholecystectomy | | | are present. Biliary ducts are unremarkable. The spleen is | | | unremarkable. The pancreas demonstrates normal parenchyma and a | | | normal pancreatic duct. Adrenal glands are normal. The right | | | kidney and visualized ureter are normal. The left kidney and | | | visualized ureter are normal. The stomach is normal. Extensive gas | | | is visualized in multiple small bowel loops, likely ileum. These | | | loops are not significantly distended. Although the colon is | | | decompressed, there appears be extensive wall thickening involving the | | | entire colon that could represent pancolitis. The appendix is not | | | well seen. Aorta is nonaneurysmal. IVC is unremarkable. No | | | enlarged lymph nodes are visualized within the omentum or | | | retroperitoneum. No free air is observed. There is a tiny amount | | | of ascites anterior to the liver. Body wall soft tissue | | | structures are normal. There is mild spondylosis of the lower | | | thoracic spine and lumbar spine. PELVIS FINDINGS: Bladder is | | | normal. Prostate and seminal vesicles are normal. Iliac | | | vessels are normal. No enlarged lymph nodes are seen. Body wall | | | soft tissue structures are normal. There are no acute osseous | | | abnormalities. IMPRESSION - No evidence for bowel perforation. | | | Extensive gas in multiple small bowel loops, likely ileum, that are | | | nondistended. This could be related to recent endoscopy. | | | Decompressed colon with extensive wall thickening involving the entire | | | colon that could represent pancolitis. Recommend clinical | | | correlation. Nonspecific tiny amount of ascites anterior to the | | | liver. Mild hepatomegaly. This information was sent the ER. | | | Dictated and Signed by: Pete Mora MD Electronically | | | signed: 04/14/2014 2:25 PM | | + + + + + | Procedure Note | + + | Gideon, Rad Results In - 04/14/2014 2:[address] ABDOMEN PELVIS W CONTRAST 04/14/2014 | | 1:50 PMHISTORY: ABDOMINAL PAIN (SEVERE).COMPARISON: Multiple prior CT scans of the | | abdomen and pelvis most jetmndvz40/10/2011.PROTOCOL: Axial images of the abdomen and | | pelvis were obtained after uneventfuladministration of 85 mL Omnipaque 350. Coronal and | | sagittal reformations wereacquired.ABDOMEN FINDINGS:Two tiny calcified nodules are | | present of the right lung base that most likelyrepresent previous granulomatous disease. | | The heart is of normal size.The liver is mildly enlarged, measuring 17.4 cm. | | Cholecystectomy are present.Biliary ducts are unremarkable.The spleen is unremarkable. | | The pancreas demonstrates normal parenchyma and anormal pancreatic duct. Adrenal glands | | are normal.The right kidney and visualized ureter are normal.The left kidney and | | visualized ureter are normal.The stomach is normal. Extensive gas is visualized in | | multiple small bowelloops, likely ileum. These loops are not significantly distended. | | Although thecolon is decompressed, there appears be extensive wall thickening involving | | theentire colon that could represent pancolitis. The appendix is not well seen.Aorta is | | nonaneurysmal. IVC is unremarkable. No enlarged lymph nodes arevisualized within the | | omentum or retroperitoneum.No free air is observed. There is a tiny amount of ascites | | anterior to theliver.Body wall soft tissue structures are normal. There is mild | | spondylosis of thelower thoracic spine and lumbar spine.PELVIS FINDINGS:Bladder is | | normal.Prostate and seminal vesicles are normal.Iliac vessels are normal. No enlarged | | lymph nodes are seen.Body wall soft tissue structures are normal. There are no acute | | osseousabnormalities.IMPRESSION -No evidence for bowel perforation.Extensive gas in | | multiple small bowel loops, likely ileum, that arenondistended. This could be related to | | recent endoscopy.Decompressed colon with extensive wall thickening involving the entire | | colonthat could represent pancolitis. Recommend clinical correlation.Nonspecific tiny | | amount of ascites anterior to the liver.Mild hepatomegaly.This information was sent the | | ER.Dictated and Signed by: Pete Mora MD Electronically signed: 04/14/2014 2:25 PM | |loops, likely ileum. These loops are not significantly distended. Although the | |colon is decompressed, there appears be extensive wall thickening involving the | |entire colon that could represent pancolitis. The appendix is not well seen. | | | |Aorta is nonaneurysmal. IVC is unremarkable. No enlarged lymph nodes are | |visualized within the omentum or retroperitoneum. | | | |No free air is observed. There is a tiny amount of ascites anterior to the | |liver. | | | |Body wall soft tissue structures are normal. There is mild spondylosis of the | |lower thoracic spine and lumbar spine. | | | |PELVIS FINDINGS: | |Bladder is normal. | | | |Prostate and seminal vesicles are normal. | | | |Iliac vessels are normal. No enlarged lymph nodes are seen. | | | |Body wall soft tissue structures are normal. There are no acute osseous | |abnormalities. | | | |IMPRESSION - | |No evidence for bowel perforation. | | | |Extensive gas in multiple small bowel loops, likely ileum, that are | |nondistended. This could be related to recent endoscopy. | | | |Decompressed colon with extensive wall thickening involving the entire colon | |that could represent pancolitis. Recommend clinical correlation. | | | |Nonspecific tiny amount of ascites anterior to the liver. | | | |Mild hepatomegaly. | | | |This information was sent the ER. | | | | | | | |Dictated and Signed by: Pete Mora MD | | Electronically signed: 04/14/2014 2:25 PM | + + + +---------+ + + | Performing | Address | City/State/Zipcode | Phone Number | | Organization | | | | + +---------+ + + | MISCELLANEOUS LAB | | | [phone] | + +---------+ + + | MISCELANIOUS LAB | | | [phone] | + +---------+ + + documented in this encounter Visit Diagnoses + + | Diagnosis | + + | Abdominal pain - Primary Abdominal pain, unspecified site | + + | Epigastric pain Abdominal pain, epigastric | + + documented in this encounter Administered Medications + +--------+ +--------+------+------+ | Medication Order | MAR | Action | Dose | Rate | Site | | | Action | Date | | | | + +--------+ +--------+------+------+ | HYDROmorphone (DILAUDID) | Given | 04/14/20 | 0.5 mg | | | | injection 0.5 mg 0.5 mg, | | 14 3:21 | | | | | Intravenous, EVERY 15 MIN PRN, | | PM PDT | | | | | Pain, Starting 04/14/14 at | | | | | | | 1337, For 4 doses | | | | | | + +--------+ +--------+------+------+ +---+---+ | | | +---+---+ + +-------+ +------+---+---+ | HYDROmorphone (DILAUDID) | Given | 04/14/20 | 1 mg | | | | injection 1 mg 1 mg, | | 14 1:39 | | | | | Intravenous, ONCE, Thu04/14/14 at | | PM PDT | | | | | 1400, For 1 dose | | | | | | + +-------+ +------+---+---+ +---+---+ | | | +---+---+ + +-------+ +------+---+---+ | ondansetron (ZOFRAN) injection | Given | 04/14/20 | 4 mg | | | | 4 mg 4 mg, Intravenous, ONCE, | | 14 1:39 | | | | | 04/14/14 at 1400, For 1 dose | | PM PDT | | | | + +-------+ +------+---+---+ +---+---+ | | | +---+---+ documented in this encounter
--- OUTSIDE RECORDS SUMMARY | ~2020-03-25 | XMS | Encounter Summary ---
Demographics + + + | Address | [address] | | | [place] [address] | + + + | Home Phone | | + + + | Preferred Language | Unknown | + + + | Marital Status | Single | + + + | Gnosticist Affiliation | 1013 | + + + | Race | Unknown | + + + | Ethnic Group | Unknown | + + + Author + + + | Author | [facility] | | | and [place] | + + + | Organization | [facility] | | | and [place] [...] Team Providers + +------+ + | Care Oracle Ascp Consultant Name | Role | Phone | + +------+ + PCP | Unavailable | + +------+ + Encounter Details +--------+ + + + + | Date | Type | Department | Care Team | Description | +--------+ + + + + | 02/25/ | Hospital | [facility] | Nima Snea | | | 2008 | Encounter | HOSPITAL EMERGENCY | [address] | | | | | CENTER [address] | [facility] | | | | | [address] [place], [place] | [place] [address] | | | | | [address] | [phone] | | | | | [phone] | | | +--------+ + + + [...]
--- OUTSIDE RECORDS SUMMARY | ~2020-03-25 | XMS | Encounter Summary ---
Demographics + + + | Address | [address] | | | [place] [address] | + + + | Home Phone | | + + + | Preferred Language | Unknown | + + + | Marital Status | Single | + + + | Hinduism Affiliation | CHR | + + + [...] Team Providers + +------+ + | Care General Machine Operator Name | Role | Phone | [...] | +--------+ + + + + | 11/24/ | Telephone | [facility] | [address], | Pain | | 2016 | | Center at [facility] [address] | | | | | | [address] | | | | | | Mailcode: Center | | | | | | for Health and | | | | | | Healing, [address] | | | | | | [place], [place] | | | | | | [address] | | | | | | [phone] | | | +--------+ + + + [...] with complication, unspecified gastrointestinal tract location (HCC) - | | Primary | + + documented in this encounter"
--- OUTSIDE RECORDS SUMMARY | ~2020-03-25 | XMS | Encounter Summary ---
Demographics + + + | Address | [address] | | | [place] [address] | + + + | Home Phone | | + + + | Preferred Language | Unknown | + + + | Marital Status | Single | + + + | Pentecostal Affiliation | 1013 | + + + | Race | Unknown | + + + | Ethnic Group | Unknown | + + + Author + + + | Author | [facility] | | | and [place] | + + + | Organization | [facility] | | | and [...] Team Providers + +------+ + | Care Content Management Specialist Name | Role | Phone | + +------+ + | Emily Green DO | PCP | | + +------+ + Reason for Visit + +--------+ + | Reason | Onset | Comments | | | Date | | + +--------+ + | Medication Refill | 04/06/ | | | | 2016 | | + +--------+ + Encounter Details +--------+--------+ + + + | Date | Type | Department | Care Team | Description | +--------+--------+ + + + | 04/06/ | Refill | [facility] | Carmelo Patterson MD | Medication Refill | | 2017 | | GASTROENTEROLOGY | [address] [facility] | | | | | [address] [facility] | [place], [place] | | | | | [address] [place], [place] | [address] | | | | | [address] | [phone] | | | | | [phone] | | | +--------+--------+ + + + [...]
--- OUTSIDE RECORDS SUMMARY | ~2020-03-25 | XMS | Encounter Summary ---
Demographics + + + | Address | [address] | | | [place] [address] | + + + | Home Phone | | + + + | Preferred Language | Unknown | + + + | Marital Status | Single | + + + | Yarsani Affiliation | CHR | + + + [...] Team Providers + +------+ + | Care Claims Director Name | Role | Phone | + +------+ + | Meaghan Zhong MD | PCP | | + +------+ + Reason for Visit + + + | Reason | Comments | + + + | Suicidal Ideation | follow up by [facility] evening/weekend SW at request of Dr. White | + + + Encounter Details +--------+ + + + + | Date | Type | Department | Care Team | Description | +--------+ + + + + | 04/09/ | Telephone | Treasury Associate | Chayito Perez, | Suicidal Ideation | | 2017 | IP | [address] | PAVING CONTRACTOR [address] [facility] | (follow up by PAT | | | | [address] [place], | [address] | evening/weekend SW | | | | [place] [address] | [place], [place] | at request of | | | | | [address] | [place]) | +--------+ + + + + Social [...]
--- OUTSIDE RECORDS SUMMARY | ~2020-03-25 | XMS | Encounter Summary ---
Demographics + + + | Address | [address] | | | [place] [address] | + + + | Home Phone | | + + + | Preferred Language | Unknown | + + + | Marital Status | Single | + + + | Episcopal Affiliation | CHR | + + + | Race | White | + + + | Ethnic Group | Not or | + + + Author + + + | Author | [facility] | + + + | Organization | [facility] | + + + | Address | Unknown | + + + | Phone | Unavailable | + + + Support + + +---------+ + | Name | Relationship | Address | Phone | + + +---------+ + | Thalia Armani | ECON | Unknown | | + + +---------+ + Care Team Providers + +------+ + | Care Therapist Name | Role | Phone | + +------+ + | Meaghan Zhong MD | PCP | | + +------+ + Reason for Visit + + + | Reason | Comments | + + + | Update from Patient | | + + + Encounter Details +--------+ + + + + | Date | Type | Department | Care Team | Description | +--------+ + + + + | 03/12/ | Telephone | Dig[facility]ive [facility] | [address], | Update from Patient | | 2016 | | [place] [facility] [address] | MD | | | | | [address] | | | | | | Mailcode: [place] | | | | | | for Health and | | | | | | [facility] [address] | | | | | | [place], [place] | | | | | | [address] | | | | | | [phone] | | | +--------+ + + + [...]
--- OUTSIDE RECORDS SUMMARY | ~2020-03-25 | XMS | Encounter Summary ---
Demographics + + + | Address | [address] | | | [place] [address] | + + + | Home Phone | | + + + | Preferred Language | Unknown | + + + | Marital Status | Single | + + + | Spiritism Affiliation | 1013 | + + + | Race | Unknown | + + + | Ethnic Group | Unknown | + + + Author + + + | Author | [facility] [place] | | | and [place] | + + + | Organization | [facility] | | | and [place] [...] Team Providers + +------+ + | Care Dental Hygiene Administrative Assistant Name | Role | Phone | + +------+ + | No, Physician | PCP | Unavailable | + +------+ + Encounter Details +--------+ + + + + | Date | Type | Department | Care Team | Description | +--------+ + + + + | 07/03/ | Hospital | [facility] | Emily Green, | | | 2014 | Encounter | HOSPITAL LABORATORY | DO [address] | | | | | [address] [place] | [place] [address] | | | | | [place], [place] | [phone] | | | | | [address] | | | | | | [phone] | | | +--------+ + + + [...] + +--------+ + + + | CBC W/AUTO | Routin | 07/03/2015 | | Results [...] +--------+ + + + | COMPREHENSIVE | Routin | 07/03/2015 | | Results for this | | METABOLIC PANEL | e | 11:46 AM | | procedure are in the | | | | PDT | | results section. | + +--------+ + + + documented in this encounter Results TSH (07/03/2015 11:46 AM PDT) + +-------+ + + + | Component | Value | Ref Range | Performed | Pathologist | | | | | At | Signature | + +-------+ + + + | TSH | 0.03 | 0.40 - 4.68 | EXTERNAL | | | | | mIU/L | LAB | | + +-------+ + + + + + | Specimen | + + | | + + + +---------+ + + | Performing | Address | City/State/Zipcode | Phone Number | | Organization | | | | + +---------+ + + | EXTERNAL LAB | | | | + +---------+ + + Comprehensive Metabolic Panel (07/03/2015 11:46 AM PDT) + +-------+ + + + | Component | Value | Ref Range | Performed | Pathologist | | | | | At | Signature | + +-------+ + + + | Sodium | 145 | 132 - 143 | EXTERNAL | | | | | mmol/L | LAB | | + +-------+ + + + | Potassium | 3.5 | 3.3 - 4.9 | EXTERNAL | | | | | mmol/L | LAB | | + +-------+ + + + | Cl | 108 | 95 - 108 mmol/L | EXTERNAL | | | | | | LAB | | + +-------+ + + + | CO2 | 28 | 23 - 34 mmol/L | EXTERNAL | | | | | | LAB | | + +-------+ + + + | Anion Gap | 9 | 7 - 16 | EXTERNAL | | | | | | LAB | | + +-------+ + + + | Calcium | 8.7 | 8.3 - 10.0 | EXTERNAL | | | | | mg/dL | LAB | | + +-------+ + + + | Glucose | 87 | 70 - 110 mg/dL | EXTERNAL | | | | | | LAB | | + +-------+ + + + | BUN, Bld | 12 | 5 - 26 mg/dL | EXTERNAL | | | | | | LAB | | + +-------+ + + + | Creatinine | 1.1 | 0.7 - 1.4 mg/dL | EXTERNAL | | | | | | LAB | | + +-------+ + + + | BUN/Creatin | 10.9 | 7.0 - 24.0 | EXTERNAL | | | ine Ratio | | RATIO | LAB | | + +-------+ + + + | GFR | 60 | >=60 | EXTERNAL | | | ESTIMATE | | mL/min/1.73m2 | LAB | | | (REF) | | | | | + +-------+ + + + | Bilirubin, | 0.2 | <=1.2 mg/dL | EXTERNAL | | | Total | | | LAB | | + +-------+ + + + | Protein, | 6.4 | 6.6 - 8.5 g/dL | EXTERNAL | | | Total | | | LAB | | + +-------+ + + + | Albumin | 3.5 | 3.0 - 4.5 g/dL | EXTERNAL | | | | | | LAB | | + +-------+ + + + | Alkaline | 90 | 46 - 116 U/L | EXTERNAL | | | Phosphatase | | | LAB | | + +-------+ + + + | ALT, | 29 | 16 - 63 U/L | EXTERNAL | | | External | | | LAB | | + +-------+ + + + | AST, | 14 | <=38 U/L | EXTERNAL | | | External | | | LAB | | + +-------+ + + + + + | Specimen | + + | | + + + +---------+ + + | Performing | Address | City/State/Zipcode | Phone Number | | Organization | | | | + +---------+ + + | EXTERNAL LAB | | | | + +---------+ + + Ferritin (07/03/2015 11:46 AM PDT) + +-------+ + + + | Component | Value | Ref Range | Performed | Pathologist | | | | | At | Signature | + +-------+ + + + | Ferritin, | 51.5 | 17.9 - 464.0 | EXTERNAL | | | External | | ng/mL | LAB | | + +-------+ + + + + + | Specimen | + + | | + + + +---------+ + + | Performing | Address | City/State/Zipcode | Phone Number | | Organization | | | | + +---------+ + + | EXTERNAL LAB | | | | + +---------+ + + CBC w/ Auto Differential (07/03/2015 11:46 AM PDT) + +-------+ + + + | Component | Value | Ref Range | Performed | Pathologist | | | | | At | Signature | + +-------+ + + + | WBC | 8 | 4.6 - 10.5 | EXTERNAL | | | | | 1000/mm3 | LAB | | + +-------+ + + + | RBC | 4.36 | 4.36 - 5.83 | EXTERNAL | | | | | mil/mm3 | LAB | | + +-------+ + + + | HGB, | 14.4 | 13.1 - 17.4 | EXTERNAL | | | External | | g/dL | LAB | | + +-------+ + + + | HCT, | 40.2 | 39.0 - 51.9 % | EXTERNAL | | | External | | | LAB | | + +-------+ + + + | MCV | 92 | 82 - 96 fl | EXTERNAL | | | | | | LAB | | + +-------+ + + + | MCH | 33 | 27.7 - 32.3 pg | EXTERNAL | | | | | | LAB | | + +-------+ + + + | MCHC | 35.8 | 32.0 - 36.9 | EXTERNAL | | | | | g/dL | LAB | | + +-------+ + + + | RDW-CV | 12.7 | <=17.0 % | EXTERNAL | | | | | | LAB | | + +-------+ + + + | Platelet | 237 | 150 - 450 | EXTERNAL | | | Count | | 1000/mm3 | LAB | | | Plasma | | | | | + +-------+ + + + | MPV | 9.4 | 9.4 - 12.4 FL | EXTERNAL | | | | | | LAB | | + +-------+ + + + | % Segmented | 59.3 | 42.0 - 76.0 % | EXTERNAL | | | | | | LAB | | | Neutrophils | | | | | + +-------+ + + + | LYMPH % | 32.7 | 20.0 - 40.0 % | EXTERNAL | | | | | | LAB | | + +-------+ + + + | % Monocytes | 8 | <=12.0 % | EXTERNAL | | | | | | LAB | | + +-------+ + + + | Absolute | 4.8 | 2.80 - 7.70 | EXTERNAL | | | Neutrophils | | 1000/mm3 | LAB | | + +-------+ + + + | Absolute | 2.6 | 1.20 - 3.30 | EXTERNAL | | | Lymphocytes | | 1000/mm3 | LAB | | + +-------+ + + + | Absolute | 0.6 | <=1.26 1000/mm3 | EXTERNAL | | | Monocytes | | | LAB | | + +-------+ + + + | SLIDE | NO | | EXTERNAL | | | REVIEW | | | LAB | | + +-------+ + + + + + | Specimen | + + | | + + + +---------+ + + | Performing | Address | City/State/Zipcode | Phone Number | | Organization | | | | + +---------+ + + | EXTERNAL LAB | | | | + +---------+ + + documented in this encounter Visit Diagnoses Not on filedocumented in this encounter"
--- OUTSIDE RECORDS SUMMARY | ~2020-03-25 | XMS | Encounter Summary ---
Demographics + + + | Address | [address] | | | [place] [address] | + + + | Home Phone [...] + | Organization | [facility] | | | and [...] Team Providers + +------+ + | Care Conservation Science Officer Name | Role | Phone | [...] | | | | without | [place] [address] | [address] | | | | | complication | Phone: | [place] | | | | | s ([facility]) | [phone] | [address] | | | | | Procedures | Fax: | Phone: | | | | | office visit | [phone] | [phone] | | | | | | | Fax: | | | | | | | [phone] | +--------+--------+ + + + + Encounter [...] | [address] | [place], [place] | abdominal location | | | | [address] [place], [place] | [address] | (Primary Dx); | | | | [address] | [phone] | Crohn's disease with | | | | [phone] | | complication, | | | | [...] encounter H&P Notes Carmelo Patterson MD - 01/21/2016 2:33 PM PDT Date of Office Visit: 01/21/2016 Chief Complaint: Other History of Present Illness: Rachid Glez is a 45 y.o. male the patient presents wi th follow-up for Crohn's disease. This patient has had Crohn's disease involving mostly the colon for greater than 78 years. He last had colonoscopy a year ago which revealed moderat e inflammation in the left colon and rectum. The patient was started on Lialda 3 tablets tw ice a day which he feels is helping her symptoms. He now has 4-6 loose usually not watery s tools daily with occasional blood however. So has persistent nausea and vomiting especially during defecation. He has maintained his weight and stays approximately at 125 230 pounds. He was seen at [facility] in April 2015 where a full evaluation was do ne. They recommended that he continue Lialda as well as Rowasa enemas as needed. I also re commended that he have colonoscopy every one to 2 years for dysplasia surveillance. Further recommendations include regular DEXA scan as well as vitamin D and ferritin. The patient d enies rashes joint problems or visual complaints at this time. He is taking the Lialda with out difficulty and otherwise has no complaints. Past Medical History: Past Medical History Diagnosis Date Crohn's disease (HCC) hospitalized 11/03/12-11/07/12 at [facility] for crohn's flare Asthma Hypothyroidism Hx of head injury Allergy GERD (gastroesophageal reflux disease) Depression Transaminitis 11/07/12 improving H/O medication noncompliance 11/07/12 Medical marijuana use Daily Past Surgical History: Past Surgical History Procedure Laterality Date Cholecystectomy Elbow surgery, right Abdominal hernia repair x4 Egd and colonoscopy 10/23/10 Normal colonoscopy. Hiatal hernia, esophagitis, duodenitis. Upper gastrointestinal endoscopy Fibula fracture surgery right Egd and colonoscopy 04/14/2014 EGD / COLONOSCOPY; Laterality: N/A; Surgeon: Carmelo Patterson MD; Location: [facility] Colonoscopy N/A 11/16/2014 Procedure: COLONOSCOPY; Surgeon: Carmelo Patterson MD; Location: [facility] T Family History: Family History Problem Relation Age of Onset Asthma Mother Stroke Mother Other (see comment) Mother HYPOTHYROIDISM Colon cancer Mother Heart surgery Mother CABG x 2 Prostate cancer Father 62 Cancer Father 62 PROSTATE Osteoarthritis Sister Allergies: Allergies No active allergies Intolerance Allergen Reactions Ketorolac Other (See Comments) "hurt for 2 weeks afterwards" Morphine Nausea And Vomiting shaking Medications: has a current medication list which includes the following prescription(s): proair hfa, cit alopram, librax, levothyroxine, mesalamine, mesalamine, ondansetron, oxycodone, and sulfasal azine. Review of Systems: A 10-point review of systems was performed and was negative except as n oted in the history of present illness. Physical Exam: Vitals:BP 110/86 mmHg | Pulse 84 | Temp(Src) 36.9 C (98.4 F) (Temporal) | Resp 16 | Wt 57.471 kg (126 lb 11.2 oz) | SpO2 96% General: This is a well-developed,well-nurished male in no apparent distress, alert and cj ented times 3. HEENT: Reveals normocephalic, atraumatic with extraocular muscles intact. Oropharynx is john ar without obstruction. Neck: Supple without lymphadenopathy or thyromegaly. Lungs: Clear to auscultation without rales or wheezes. Cardiac: Reveals regular rate and rhythm with normal S1 and S2 and no murmurs, rubs or gall ops. Abdomen: Soft with mild tenderness to palpation in the epigastrium without masses or organ megaly. Bowel sounds are normal. Extremities: Without cyanosis, clubbing or edema. Neuro: Awake, alert, oriented x3. Normal station and gait. Skin: Warm and dry, no erythematous rash. Assessment and Plan: 45-year-old white male with Crohn's colitis for greater than 8 years. Current guidelines recommend dysplasia surveillance every one to 2 years.At this time I rec ommend that colonoscopy be performed for further evaluation. Indications risks benefits and possible complications were discussed with the patient who wishes to proceed with colonosco py at this time. Since the patient is having epigastric pain as well as intermittent nausea and vomiting I r ecommend upper endoscopy as well to look for foregut Crohn's disease.At this time I recommen d that upper endoscopy or esophagogastroduodenoscopy be performed for further evaluation. I ndications risks benefits and possible complications were discussed with the patient who wis hed to proceed with EGD at this time. Discussed skin exam as well as regular vitamin D leve ls and ferritin level through his primary care provider. documented in this enc ounter Plan of Treatment Not on filedocumented as of this encounter Visit Diagnoses + + | Diagnosis | + + | Abdominal pain, unspecified abdominal location - Primary | + + | Crohn's disease with complication, unspecified gastrointestinal tract location (HCC) | + + documented in this encounter
--- OUTSIDE RECORDS SUMMARY | ~2020-03-25 | XMS | Encounter Summary ---
Demographics + + + | Address | [address] | | | [place] [address] | + + + | Home Phone | | + + + | Preferred Language | Unknown | + + + | Marital Status | Single | + + + | Samaritan Affiliation | 1013 | + + + | Race | Unknown | + + + | Ethnic Group | Unknown | + + + Author + + + | Author | [facility] | | | and [place] | + + + | Organization | [facility] | | | and [...] Team Providers + +------+ + | Care Warehouse Person Name | Role | Phone | + +------+ + PCP | Unavailable | + +------+ + Encounter Details +--------+ + + + + | Date | Type | Department | Care Team | Description | +--------+ + + + + | 10/01/ | Hospital | [facility] | Andrew Perez | | | 2008 | Encounter | HOSPITAL EMERGENCY | [address] | | | | [address] | [address] | | | | | [address] [place], [place] | [place] [address] | | | | | [address] | [phone] | | | | | [phone] | | | +--------+ + + + [...]
--- OUTSIDE RECORDS SUMMARY | ~2020-03-25 | XMS | Encounter Summary ---
Demographics + + + | Address | [address] | | | [place] [address] | + + + | Home Phone | | + + + | Preferred Language | Unknown | + + + | Marital Status | Single | + + + | Rastafari Affiliation | CHR | + + + | Race | White | + + + | Ethnic Group | Not or | + + + Author + + + | Author | [facility] | + + + | Organization | [facility] | + + + | Address | Unknown | + + + | Phone | Unavailable | + + + Support + + +---------+ + | Name | Relationship | Address | Phone | + + +---------+ + | Thalia Armani | ECON | Unknown | | + + +---------+ + Care Team Providers + +------+ + | Care Toolman Name | Role | Phone | + [...] Refill Request | | 2015 | | [place] [facility] [address] | | [place]) | | | | [address] | | | | | | Mailcode: Center | | | | | | [facility] | | | | | | [facility] | | | | | | [place], [place] | | | | | | [address] | | | | | | [phone] | | | +--------+--------+ + + + [...]
--- OUTSIDE RECORDS SUMMARY | ~2020-03-25 | XMS | Encounter Summary ---
Demographics + + + | Address | [address] | | | [place] [address] | + + + | Home Phone | | + + + | Preferred Language | Unknown | + + + | Marital Status | Single | + + + | Roman Catholic Affiliation | 1013 | + + + | Race | Unknown | + + + | Ethnic Group | Unknown | + + + Author + + + | Author | [facility] | | | and [place] | + + + | Organization | [facility] | | | and [place] [...] Team Providers + +------+ + | Care Ore Feeder Name | Role | Phone | + +------+ + | No, Physician | PCP | Unavailable | + +------+ + Reason for Referral Evaluate & Treat (Routine) +--------+ + + + + + | Status | Reason | Specialty | Diagnoses / | Referred By | Referred To | | | | | Procedures | Contact | Contact | +--------+ + + + + + | Closed | Specialty | Gastroenterol | Diagnoses | Leonardo, | Leonardo, | | | Services | ogy | Regional | MD Carmelo | MD Carmelo | | | Required | | enteritis of | [address] | [address] | | | | | unspecified | BLVD | [place] | | | | | site | [place], [place] | [place] [address] | | | | | Abdominal | [address] | Phone: | | | | | pain, | Phone: | [phone] | | | | | unspecified | [phone] | Fax: | | | | | site Other | Fax: | [phone] | | | | | opiates and | [phone] | | | | | | related | | | | | | | narcotics | | | | | | | causing | | | | | | | adverse | | | | | | | effect in | | | | | | | therapeutic | | | | | | | use | | | | | | | Procedures | | | | | | | [place] | | | | | | | COLONOSCOPY | | | | | | | FLX DX | | | | | | | W/COLLJ SPEC | | | | | | | WHEN PFRMD | | | | | | | [place] | | | | | | | COLONOSCOPY | | | | | | | W/BIOPSY | | | | | | | SINGLE/MULTI | | | | | | | PLE LA | | | | | | | COLSC FLX | | | | | | | W/RMVL OF | | | | | | | TUMOR POLYP | | | | | | | LESION SNARE | | | | | | | TQ LA | | | | | | | ANESTH,INTES | | | | | | | MARLIN,SCOPE,L | | | | | | | OW | | | | | | | 11/03>PEND | | | | | | | MODA | | | | | | | MICHELLE | | | +--------+ + + + + + Reason for Visit +--------+--------+ + | Reason | Onset | Comments | | | Date | | +--------+--------+ + | Other | 10/30/ | Schedule colonoscopy | | | 2014 | | +--------+--------+ + Encounter Details +--------+ + + + + | Date | Type | Department | Care Team | Description | +--------+ + + + + | 10/30/ | Telephone | [facility] | Carmelo Patterson MD | Other (Schedule | | 2014 | | GASTROENTEROLOGY | [address] [facility] | colonoscopy) | | | | [address] [facility] | [place], [place] | | | | | [address] | [address] | | | | | [address] | [phone] | | | | | [phone] | | | +--------+ + + + [...] this encounter Miscellaneous Notes Telephone Encounter - Ese Ring RN - 11/02/2014 4:22 PM PSTSpoke with Phill and jayashree mcclellan his Colonoscopy, procedure only, IVCS. Will verify with Dr. Patterson IVCS versus propofo l. Patient states he uses [place] as needed, not daily. Patient has been scheduled for procedure date 11/08/14, arrival time 0930, at [facility] Patient instruction sheet has been reviewed with patient. Patient allergies, medications, address, and pharmacy have been verified. Patient states he already has un-used golytely prep at home. Denies joint replacement, heart valve replacement, pacemaker, or stent placement. Patient instructions, map, low residue diet info sheet, and patient questionnaire have been mailed. Referral placed, prep sent to pharmacy, OR booking request submitted. elephone Encounter - Ese Ring RN - 11/02/2014 3:45 PM PSTLeft message for patient to return call.Electr onically signed by Ese Ring RN at 11/02/2014 3:45 PM PSTTelephone Encounter - Monique Mckeon - 10/30/2014 8:45 AM PSTPatient called saying he is ready to reschedule his proc edure that they couldn't finish back in May of 2014. Please call patient back.Electro nically signed by Monique Mckeon at 10/30/2014 8:53 AM PSTdocumented in this encounter Plan of Treatment + + +--------+ + + | Name | Type | Priori | Associated Diagnoses | Order Schedule | | | | ty | | | + + +--------+ + + | Ambulatory referral | Outpatient | Routin | Regional enteritis | Expected: | | to Gastroenterology | Referral | e | of unspecified site | 11/08/2014, Expires: | | [facility] | | | (HCC) Abdominal | 11/02/2015 | | | | | pain, unspecified | | | | | | site | | + + +--------+ + + documented as of this encounter Visit Diagnoses + + | Diagnosis | + + | Regional enteritis of unspecified site - Primary | + + | Abdominal pain, unspecified site | + + documented in this encounter"
--- OUTSIDE RECORDS SUMMARY | ~2020-03-25 | XMS | Encounter Summary ---
Demographics + + + | Address | [address] | | | [place] [address] | + + + | Home Phone | | + + + | Preferred Language | Unknown | + + + | Marital Status | Single | + + + | Jainism Affiliation | 1013 | + + + | Race | Unknown | + + + | Ethnic Group | Unknown | + + + Author + + + | Author | [facility] [place] | | | and [place] | + + + | Organization | [facility] | | | and [place] | [...] Team Providers + +------+ + | Care Legislative Director Name | Role | Phone | + +------+ + | No, Physician | PCP | Unavailable | + +------+ + Encounter Details +--------+ + + + + | Date | Type | Department | Care Team | Description | +--------+ + + + + | 12/25/ | [facility] | [place] [facility] | Clement Ventura | | | 2014 | Encounter | HOSPITAL EMERGENCY | [address] | | | | | CENTER [address] | [facility] | | | | | [address] [place], [place] | [place] [address] | | | | | [address] | [phone] | | | | | [phone] | | | +--------+ + + + [...] + + + | CBC W/AUTO | STAT | 12/25/2014 | | Results for this | | DIFFERENTIAL | | 8:59 AM | | procedure are in the | | | | PDT | | results section. | + +--------+ + + + | LIPASE | STAT | 12/25/2014 | | Results for this | | | | 8:59 AM | | procedure are in the | | | | PDT | | results section. | + +--------+ + + + | COMPREHENSIVE | STAT | 12/25/2014 | | Results for this | | METABOLIC PANEL | | 8:59 AM | | procedure are in the | | | | PDT | | results section. | + +--------+ + + + documented in this encounter Results Lipase (12/25/2014 8:59 AM PDT) + +-------+ + + + | Component | Value | Ref Range | Performed | Pathologist | | | | | At | Signature | + +-------+ + + + | Lipase | 330 | 73 - 393 U/L | EXTERNAL | | | | | [...] + +---------+ + + Comprehensive Metabolic Panel (12/25/2014 8:59 AM PDT) + +-------+ + + + | Component | Value | Ref Range | Performed | Pathologist | | | | | At | Signature | + +-------+ + + + | Sodium | 142 | 132 - 143 | EXTERNAL | | | | | mmol/L | LAB | | + +-------+ + + + | Potassium | 4.1 | 3.3 - 4.9 | EXTERNAL | | | | | mmol/L | LAB | | + +-------+ + + + | Cl | 109 | 95 - 108 mmol/L | EXTERNAL | | | | | | LAB | | + +-------+ + + + | CO2 | 23 | 23 - 34 mmol/L | EXTERNAL | | | | | | LAB | | + +-------+ + + + | Anion Gap | 10 | 7 - 16 | EXTERNAL | | | | | | LAB | | + +-------+ + + + | Calcium | 9.3 | 8.3 - 10.0 | EXTERNAL | | | | | mg/dL | LAB | | + +-------+ + + + | Glucose | 112 | 70 - 110 mg/dL | EXTERNAL | | | | | | LAB | | + +-------+ + + + | BUN, Bld | 9 | 5 - 26 mg/dL | EXTERNAL | | | | | | LAB | | + +-------+ + + + | Creatinine | 1.2 | 0.7 - 1.4 mg/dL | EXTERNAL | | | | | | LAB | | + +-------+ + + + | BUN/Creatin | 7.5 | 7.0 - 24.0 | EXTERNAL | | | ine Ratio | | RATIO | LAB | | + +-------+ + + + | GFR | 60 | >=60 | EXTERNAL | | | ESTIMATE | | mL/min/1.73m2 | LAB | | | (REF) | | | | | + +-------+ + + + | Bilirubin, | 0.6 | <=1.2 mg/dL | EXTERNAL | | | Total | | | LAB | | + +-------+ + + + | Protein, | 6.7 | 6.6 - 8.5 g/dL | EXTERNAL | | | Total | | | LAB | | + +-------+ + + + | Albumin | 3.8 | 3.0 - 4.5 g/dL | EXTERNAL | | | | | | LAB | | + +-------+ + + + | Alkaline | 76 | 46 - 116 U/L | EXTERNAL | | | Phosphatase | | | LAB | | + +-------+ + + + | ALT, | 22 | 16 - 63 U/L | EXTERNAL | | | External | | | LAB | | + +-------+ + + + | AST, | 15 | <=38 U/L | EXTERNAL | | [...] +---------+ + + CBC w/ Auto Differential (12/25/2014 8:59 AM PDT) + +-------+ + + + | Component | Value | Ref Range | Performed | Pathologist | | | | | At | Signature | + +-------+ + + + | WBC | 12.9 | 4.6 - 10.5 | EXTERNAL | | | | | 1000/mm3 | LAB | | + +-------+ + + + | RBC | 4.2 | 4.36 - 5.83 | EXTERNAL | | | | | mil/mm3 | LAB | | + +-------+ + + + | HGB, | 14.1 | 13.1 - 17.4 | EXTERNAL | | | External | | g/dL | LAB | | + +-------+ + + + | HCT, | 40.3 | 39.0 - 51.9 % | EXTERNAL | | | External | | | LAB | | + +-------+ + + + | MCV | 96 | 82 - 96 fl | EXTERNAL | | | | | | LAB | | + +-------+ + + + | MCH | 33.6 | 27.7 - 32.3 pg | EXTERNAL | | | | | | LAB | | + +-------+ + + + | MCHC | 35 | 32.0 - 36.9 | EXTERNAL | | | | | g/dL | LAB | | + +-------+ + + + | RDW-CV | 12.7 | <=17.0 % | EXTERNAL | | | | | | LAB | | + +-------+ + + + | RDW-SD | 43.8 | 34.0 - 57.0 fL | EXTERNAL | | | | | | LAB | | + +-------+ + + + | Platelet | 306 | 150 - 450 | EXTERNAL | | | Count | | 1000/mm3 | LAB | | | Plasma | | | | | + +-------+ + + + | MPV | 10.1 | 9.4 - 12.4 FL | EXTERNAL | | | | | | LAB | | + +-------+ + + + | % Segmented | 82.9 | 42.0 - 76.0 % | EXTERNAL | | | | | | LAB | | | Neutrophils | | | | | + +-------+ + + + | % | 11.5 | 20.0 - 40.0 % | EXTERNAL | | | Lymphocytes | | | LAB | | + +-------+ + + + | % Monocytes | 4.4 | 3.0 - 13.0 % | EXTERNAL | | | | | | LAB | | + +-------+ + + + | % | 0.9 | 0.0 - 7.0 % | EXTERNAL | | | Eosinophils | | | LAB | | + +-------+ + + + | % Basophils | 0.3 | 0.0 - 2.0 % | EXTERNAL | | | | | | LAB | | + +-------+ + + + | Absolute | 10.66 | 2.80 - 7.70 | EXTERNAL | | | Neutrophils | | 1000/mm3 | LAB | | + +-------+ + + + | Absolute | 1.48 | 1.20 - 3.30 | EXTERNAL | | | Lymphocytes | | 1000/mm3 | LAB | | + +-------+ + + + | Absolute | 0.56 | 0.00 - 0.80 | EXTERNAL | | | Monocytes | | 1000/mm3 | LAB | | + +-------+ + + + | Absolute | 0.11 | 0.00 - 0.70 | EXTERNAL | | | Eosinophils | | 1000/mm3 | LAB | | + +-------+ + + + | Absolute | 0.04 | 0.00 - 0.20 | EXTERNAL | | | Basophils | | 1000/mm3 | LAB | | + +-------+ + + + | SLIDE | NO | | EXTERNAL | | | REVIEWED | | | LAB | | + [...]
--- OUTSIDE RECORDS SUMMARY | ~2020-03-25 | XMS | Encounter Summary ---
Demographics + + + | Address | [address] | | | [place] [address] | + + + | Home Phone | | + + + | Preferred Language | Unknown | + + + | Marital Status | Single | + + + | Religion Affiliation | 1013 | + + + | Race | Unknown | + + + | Ethnic Group | Unknown | + + + Author + + + | Author | [facility] [place] | | | and [place] | + + + | Organization | [facility] | | | and [...] Team Providers + +------+ + | Care Tonnage Compilation Clerk Name | Role | Phone | + +------+ + | No, Physician | PCP | Unavailable | + +------+ + Encounter Details +--------+ + + + + | Date | Type | Department | Care Team | Description | +--------+ + + + + | 06/09/ | Hospital | [place] [facility] | Reg Stewart | | | 2013 | Encounter | HOSPITAL EMERGENCY | [address] | | | | | C[address] | [address] | | | | | [address] [place], [place] | [place] [address] | | | | | [address] | [phone] | | | | | [phone] | | | +--------+ + + + [...]
--- OUTSIDE RECORDS SUMMARY | ~2020-03-25 | XMS | Encounter Summary ---
Demographics + + + | Address | [address] | | | [place] [address] | + + + | Home Phone | | + + + | Preferred Language | Unknown | + + + | Marital Status | Single | + + + | Holiness Affiliation | CHR | + + + [...] Team Providers + +------+ + | Care Liner Machine Operator Name | Role | Phone [...] | | 2016 | | Center at [facility] [address] | | management | | | | [address] | | | | | | Mailcode: Center | | | | | | for [facility] and | | | | | | Healing, [address] | | | | | | [place], [place] | | | | | | [address] | | | | | | [phone] | | | +--------+ + + + [...]
--- OUTSIDE RECORDS SUMMARY | ~2020-03-25 | XMS | Encounter Summary ---
Demographics + + + | Address | [address] | | | [place] [address] | + + + | Home Phone | | + + + | Preferred Language | Unknown | + + + | Marital Status | Single | + + + | Sabianism Affiliation | CHR | + + + | Race | White | + + + | Ethnic Group | Not or | + + + Author + + + | Author | [facility] | + + + | Organization | [facility] | + + + | Address | Unknown | + + + | Phone | Unavailable | + + + Support + + +---------+ + | Name | Relationship | Address | Phone | + + +---------+ + | Thalia Armani | ECON | Unknown | | + + +---------+ + Care Team Providers + +------+ + | Care Deputy Treasurer Name | Role | Phone | + +------+ + | Meaghan Zhong MD | PCP | | + +------+ + Reason for Visit + + + | Reason | Comments | + + + | Medical Records | | | Review | | + + + Encounter Details +--------+ + + + + | Date | Type | Department | Care Team | Description | +--------+ + + + + | 03/12/ | Documentati | [facility] | [address], | Medical Records | | 2015 | on | [place] [facility] [address] | MD | Review | | | | [address] | | | | | | Mailcode: [place] | | | | | | [facility] | | | | | | [facility], [facility] | | | | | | [place], [place] | | | | | | [address] | | | | | | [phone] | | | +--------+ + + + [...]
--- OUTSIDE RECORDS SUMMARY | ~2020-03-25 | XMS | Encounter Summary ---
Demographics + + + | Address | [address] | | | [place] [address] | + + + | Home Phone | | + + + | Preferred Language | Unknown | + + + | Marital Status | Single | + + + | Advent Affiliation | 1013 | + + + | Race | Unknown | + + + | Ethnic Group | Unknown | + + + Author + + + | Author | [facility] [place] | | | and [place] | + + + | Organization | [facility] | | | and [...] Team Providers + +------+ + | Care Hard Rock Drill Operator Name | Role | Phone | [...] | | | disease | | [address] | | | | | without | | [place], | | | | | complication | | [place] [address] | | | | | , | | Phone: | | | | | unspecified | | [phone] | | | | | gastrointest | | Fax: | | | | | inal tract | | [phone] | | | | | location | [...] | | | | | | | [place] | | | | | | | COLONOSCOPY | | | | | | | FLX DX | | | | | | | W/COLLJ SPEC | | | | | | | WHEN PFRMD | | | | | | | [place] | | | | | | | [...] + | 04/09/ | Anesthesia | [facility] | Nima Lynn MD | | | 2016 | Event | MED CTR MP INTRA OP | [address] | | | | | [address] | [place] | | | | | [place] | [address] | | | | | [address] | | | | | | [phone] | | | +--------+ + + + [...] 04/09/16 1155 by | | eral | upwe-shh-omyfka catheter system; | Echo Jefferson, | Radha Price | | IV | 20 gauge, 1 1/4 in length; | RN | Be, ADITI | | | intradermal injection, topical | [...] + + documented as of this encounter [place] Notes Anesthesia Postprocedure Evaluation - Nima Lynn MD - 04/09/2016 12:27 PM Alta connor of this note might be different from the original. ANESTHESIA POSTANESTHESIA EVALUATION Rachid Glez 45 y.o. male 1970 [id number] Procedure(s) EGD / COLONOSCOPY (N/A ) Cooperates? Yes Mental Status Performs simple tasks. Respiratory Satisfactory - Airway patent (self maintained). Cardiovascular Satisfactory Blood pressure and heart rate acceptable Temperature Satisfactory Pain Satisfactory N/V Control Satisfactory Hydration Satisfactory No signs of dehydration Complications None apparent Filed Vitals: 04/09/16 1045 04/09/16 1100 04/09/16 1120 BP: 95/43 96/36 137/80 Pulse: 57 55 47 Temp: Resp: SpO2: 100% 96% 94% Electronically signed by Nima Lynn MD 04/09/2016 12:28 [facility] nesthesia Preprocedur e Evaluation - Nima Lynn MD - 04/09/2016 9:22 AM PDT ANESTHESIA PREANESTHESIA EVALUATION Rachid Glez 45 y.o. male 1970 [id number] Procedure(s): EGD / COLONOSCOPY (N/A ) Medical history, anesthesia, medications, allergy, NPO status verified histories reviewed. Review of Systems / Med History Neurology History of head trauma at age 10 with problems of memory loss. Physical Exam Airway MP I, TM >3 FB, Mouth opening >2 FB. Neck: full ROM, extends >30 degrees. Jaw protrusi on normal. Dental Grossly normal except where noted below.; CV Rhythm regular. Rate Normal. (-) murmur. Pulm Clear to auscultation bilaterally. (+) rhonchi. Neuro Grossly normal. Anesthesia Plan ASA 2 Type: General. Induction: Intravenous. Potential problems: None anticipated. Monitors: Standard ASA monitors. Consent statement:Anesthetic plan, alternatives, risks and benefits discussed with patient and significant other. Risks discussed included (but were not limited to): sore throat, respiratory events, heart problems, dental injury, . Consenting person understands and agrees to proceed. documented in this enc ounter Plan of [...]
--- OUTSIDE RECORDS SUMMARY | ~2020-03-25 | XMS | Encounter Summary ---
Demographics + + + | Address | [address] | | | [place] [address] | + + + | Home Phone | | + + + | Preferred Language | Unknown | + + + | Marital Status | Single | + + + | Buddhist Affiliation | 1013 | + + + | Race | Unknown | + + + | Ethnic Group | Unknown | + + + Author + + + | Author | [facility] [place] | | | and [place] | + + + | Organization | [facility] [...] Team Providers + +------+ + | Care Bindery Manager Name | Role | Phone | + +------+ + | No, Physician | PCP | Unavailable | + +------+ + Encounter Details +--------+ + + + + | Date | Type | Department | Care Team | Description | +--------+ + + + + | 08/18/ | [facility] | [place] [facility] | Clement Ventura | | | 2013 | Encounter | HOSPITAL EMERGENCY | [address] | | | | | CENTER [address] | [facility] | | | | | [address] [place], [place] | [place], [place] [address] | | | | | [address] | [phone] | | | | | [phone] | | | +--------+ + + + [...] + + | COMPREHENSIVE | STAT | 08/18/2014 | | Results for this | | METABOLIC PANEL | | 7:56 AM | | procedure are in the | | | | PST | | results section. | + +--------+ + + + | CBC W/AUTO | STAT | 08/18/2014 | | Results for this | | DIFFERENTIAL | | 6:56 AM | | procedure are in the | | | | PST | | results section. | + +--------+ + + + | B TYPE NATRIURETIC | STAT | 08/18/2014 | | Results for this | | PEPTIDE | | 6:56 AM | | procedure are in the | | | | PST | | results section. | + +--------+ + + + | LIPASE | STAT | 08/18/2014 | | Results for this | | | | 6:56 AM | | procedure are in the | | | | PST | | results section. | + +--------+ + + + | URINALYSIS WITH | STAT | 08/18/2014 | | Results for this | | MICROSCOPIC WITH | | 6:55 AM | | procedure are in the | | CULTURE IF INDICATED | | PST | | results section. | + +--------+ + + + documented in this encounter Results Comprehensive Metabolic Panel (08/18/2014 7:56 AM PST) + +-------+ + + + | Component | Value | Ref Range | Performed | Pathologist | | | | | At | Signature | + +-------+ + + + | Sodium | 142 | 132 - 143 | EXTERNAL | | | | | mmol/L | LAB | | + +-------+ + + + | Potassium | 4 | 3.3 - 4.9 | EXTERNAL | | | | | mmol/L | LAB | | + +-------+ + + + | Cl | 107 | 95 - 108 mmol/L | EXTERNAL | | | | | | LAB | | + +-------+ + + + | CO2 | 23 | 23 - 34 mmol/L | EXTERNAL | | | | | | LAB | | + +-------+ + + + | Anion Gap | 12 | 7 - 16 | EXTERNAL | | | | | | LAB | | + +-------+ + + + | Calcium | 8.9 | 8.3 - 10.0 | EXTERNAL | | | | | mg/dL | LAB | | + +-------+ + + + | Glucose | 90 | 70 - 110 mg/dL | EXTERNAL | | | | | | LAB | | + +-------+ + + + | BUN, Bld | 12 | 5 - 26 mg/dL | EXTERNAL | | | | | | LAB | | + +-------+ + + + | Creatinine | 1.4 | 0.7 - 1.4 mg/dL | EXTERNAL | | | | | | LAB | | + +-------+ + + + | BUN/Creatin | 8.6 | 7.0 - 24.0 | EXTERNAL | | | ine Ratio | | RATIO | LAB | | + +-------+ + + + | GFR | 59 | >=60 | EXTERNAL | | | ESTIMATE | | mL/min/1.73m2 | LAB | | | (REF) | | | | | + +-------+ + + + | Bilirubin, | 0.5 | <=1.2 mg/dL | EXTERNAL | | | Total | | | LAB | | + +-------+ + + + | Protein, | 7.5 | 6.6 - 8.5 g/dL | EXTERNAL | | | Total | | | LAB | | + +-------+ + + + | Albumin | 4.1 | 3.0 - 4.5 g/dL | EXTERNAL | | | | | | LAB | | + +-------+ + + + | Alkaline | 83 | 33 - 151 U/L | EXTERNAL | | | Phosphatase | | | LAB | | + +-------+ + + + | ALT, | 48 | 16 - 63 U/L | EXTERNAL | | | External | | | LAB | | + +-------+ + + + | AST, | 28 | <=38 U/L | EXTERNAL | | [...] | | + +---------+ + + Lipase (08/18/2014 6:56 AM PST) + +-------+ + + + | Component | Value | Ref Range | Performed | Pathologist | | | | | At | Signature | + +-------+ + + + | Lipase | 201 | 73 - 393 U/L | EXTERNAL [...] | | | + +---------+ + + B Type Natriuretic Peptide (08/18/2014 6:56 AM PST) + +-------+ + + + | Component | Value | Ref Range | Performed | Pathologist | | | | | At | Signature | + +-------+ + + + | NT-proBNP | 166 | <=93 pg/mL | EXTERNAL | | | | | [...] +---------+ + + CBC w/ Auto Differential (08/18/2014 6:56 AM PST) + +-------+ + + + | Component | Value | Ref Range | Performed | Pathologist | | | | | At | Signature | + +-------+ + + + | WBC | 12.8 | 4.6 - 10.5 | EXTERNAL | | | | | 1000/mm3 | LAB | | + +-------+ + + + | RBC | 4.18 | 4.36 - 5.83 | EXTERNAL | | | | | mil/mm3 | LAB | | + +-------+ + + + | HGB, | 14.5 | 13.1 - 17.4 | EXTERNAL | | | External | | g/dL | LAB | | + +-------+ + + + | HCT, | 42.4 | 39.0 - 51.9 % | EXTERNAL | | | External | | | LAB | | + +-------+ + + + | MCV | 101 | 82 - 96 fl | EXTERNAL | | | | | | LAB | | + +-------+ + + + | MCH | 34.7 | 27.7 - 32.3 pg | EXTERNAL | | | | | | LAB | | + +-------+ + + + | MCHC | 34.2 | 32.0 - 36.9 | EXTERNAL | | | | | g/dL | LAB | | + +-------+ + + + | RDW-CV | 13.1 | <=17.0 % | EXTERNAL | | | | | | LAB | | + +-------+ + + + | RDW-SD | 48.2 | 34.0 - 57.0 fL | EXTERNAL | | | | | | LAB | | + +-------+ + + + | Platelet | 313 | 150 - 450 | EXTERNAL | | | Count | | 1000/mm3 | LAB | | | Plasma | | | | | + +-------+ + + + | MPV | 10.1 | 9.4 - 12.4 FL | EXTERNAL | | | | | | LAB | | + +-------+ + + + | % Segmented | 76.4 | 42.0 - 76.0 % | EXTERNAL | | | | | | LAB | | | Neutrophils | | | | | + +-------+ + + + | % | 16.4 | 20.0 - 40.0 % | EXTERNAL | | | Lymphocytes | | | LAB | | + +-------+ + + + | % Monocytes | 4.9 | 3.0 - 13.0 % | EXTERNAL | | | | | | LAB | | + +-------+ + + + | % | 1.8 | 0.0 - 7.0 % | EXTERNAL | | | Eosinophils | | | LAB | | + +-------+ + + + | % Basophils | 0.5 | 0.0 - 2.0 % | EXTERNAL | | | | | | LAB | | + +-------+ + + + | Absolute | 9.8 | 2.80 - 7.70 | EXTERNAL | | | Neutrophils | | 1000/mm3 | LAB | | + +-------+ + + + | Absolute | 2.11 | 1.20 - 3.30 | EXTERNAL | | | Lymphocytes | | 1000/mm3 | LAB | | + +-------+ + + + | Absolute | 0.63 | 0.00 - 0.80 | EXTERNAL | | | Monocytes | | 1000/mm3 | LAB | | + +-------+ + + + | Absolute | 0.23 | 0.00 - 0.70 | EXTERNAL | | | Eosinophils | | 1000/mm3 | LAB | | + +-------+ + + + | Absolute | 0.07 | 0.00 - 0.20 | EXTERNAL | [...] | | | + +---------+ + + Urinalysis with Microscopic with Culture if Indicated (08/18/2014 6:55 AM PST) + + + + + + | Component | Value | Ref Range | Performed | Pathologist | | | | | At | Signature | + + + + + + | Source | Clean Catch / VOID | | EXTERNAL | | | | | | LAB | | + + + + + + | Clarity | CLEAR | CLEAR | EXTERNAL | | | | | | LAB | | + + + + + + | Color, | PALE | YELLOW | EXTERNAL | | | Urine | | | LAB | | + + + + + + | Specific | 1.005 | 1.005 - 1.030 | EXTERNAL | | | [place], | | | LAB | | | Urine | | | | | + + + + + + | pH, Urine | 7 | 5.0 - 7.0 pH | EXTERNAL [...] + + + + + + | White Blood | NONE SEEN | </= 5 /HPF | EXTERNAL | | | Cells, | | | LAB | | | [...] + + + + + + | Squamous | NONE SEEN | /LPF | EXTERNAL | | | Epithelial | | | LAB | | | Cells, | | | | | | Urine | | | [...]
--- OUTSIDE RECORDS SUMMARY | ~2020-03-25 | XMS | Encounter Summary ---
Demographics + + + | Address | [address] | | | [place] [address] | + + + | Home Phone | | + + + | Preferred Language | Unknown | + + + | Marital Status | Single | + + + | Catholic Affiliation | 1013 | + + + | Race | Unknown | + + + | Ethnic Group | Unknown | + + + Author + + + | Author | [facility] | | | and [place] | + + + | Organization | [facility] [...] Team Providers + +------+ + | Care Garnett Room Worker Name | Role | Phone | + +------+ + | No, Physician | PCP | Unavailable | + +------+ + Encounter Details +--------+ + + + + | Date | Type | Department | Care Team | Description | +--------+ + + + + | 11/29/ | Emergency | [facility] | Alex Isaac | Flank pain | | 2015 | | [facility] | [address] | | | | [address] | [address] | | | | | [address] | [place] | | | | | [place] | [address] | | | | | [address] | [phone] | | | | | [phone] | | | +--------+ + + + [...] Pressure | 125/76 | 11/30/2015 11:39 PM | | | | | PST | | + + + + + | Pulse | 49 | 11/30/2015 11:39 PM | | | | | PST | | + + + + + | Temperature | 36.7 C (98 F) | 11/30/2015 11:39 PM | | | | | PST | | + + + + + | Respiratory Rate | 16 | 11/30/2015 11:39 PM | | | | | PST | | + + + + + | Oxygen Saturation | - | - | | + + + + + | Inhaled Oxygen | - | - | | | Concentration | | | | + + + + + | Weight | 59 kg (130 lb 1.1 | 11/30/2015 11:39 PM | | | | oz) | PST | | + + + + + | Height | 157.5 cm (5' 2") | 11/30/2015 11:39 PM | | | | | PST | | + + + + + | Body Mass Index | 23.79 | 11/30/2015 11:39 PM | | | | | PST [...] documented as of this encounter ED Notes Reg Nguyen PA-C - 11/30/2015 10:43 PM PSTFormatting of this note might be different f rom the original. ED Provider Notes by Reg Nguyen PA-C at 11/30/152242 Author: Reg Nguyen PA-C Service: Emergency Department Author Type: Physician Ivelisse hedrick - Certified Filed: 11/30/15 5145 Date of Service: 11/30/152242 Status: Signed Marketing Director Assisted Living: Reg Nguyen PA-C (Physician Traffic Investigator - Certified) Cosigner: Alex sanderson DO at 12/01/15 1601 Procedures [facility] IN [facility] History of Present Illness Patient Identification Rachid Glez is a 45 y.o. male. Patient information was obtained from patient. History/Exam limitations: none. Patient presented to the Emergency Department by: Car Chief Complaint Chief Complaint Patient presents with Flank Pain Bilateral flank pain and blood with urination. Pt states that it is painful to urinate. Hematuria The patient complains of flank pain and hematuria. Onset of symptoms was 1 week ago, with a worsening course since that time. The symptoms are described to be of moderate severity. T he patient describes the quality and location of the symptoms as the following: bilateral fl ank pain, worse on left than right. He states there was a lot of blood in the toilet while p eeing. Care prior to arrival consisted of cranberry juice, with no relief. Past Medical History Diagnosis Date Thyroid disease Asthma Crohn's colitis (HCC) Past Surgical History Procedure Laterality Date Leg surgery Prior to Admission medications Medication Sig Start Date End Date Taking? Authorizing Provider citalopram (CELEXA) 20 MG tablet Take 20 mg by mouth every morning. Yes Historical Provid er levothyroxine (SYNTHROID) 175 MCG tablet Take 175 mcg by mouth every morning before breakfa st. Yes Historical Provider HYDROcodone-acetaminophen (NORCO) 10-325 MG per tablet Take 1 tablet by mouth every 6 (six) hours as needed for Pain. Historical Provider ipratropium-albuterol (COMBIVENT) 18-103 MCG/ACT inhaler Inhale 2 puffs into the lungs ever y 6 (six) hours as needed for Wheezing. Historical Provider ondansetron (ZOFRAN) 8 MG tablet Take 8 mg by mouth every 8 (eight) hours as needed for Tio sea. Historical Provider Allergies Allergen Reactions Toradol [Ketorolac] Other (See Comments) Pt states the IM injection "hurts for two weeks" Morphine Abdominal Pain History Social History Marital Status: Single Spouse Name: N/A Number of Children: N/A Years of Education: N/A Occupational History Not on file. Social History Main Topics Smoking status: Never Smoker Smokeless tobacco: Current User Alcohol Use: No Drug Use: Yes Special: Marijuana Comment: daily Sexual Activity: Not on file Other Topics Concern Not on file Social History Narrative History reviewed. No pertinent family history. ROS Review of Systems Constitutional: Negative for: fever, chills, fatigue, sweats or weight loss Eyes: Negative for: decreased vision or irritated eyes Nose: Negative for: nosebleed Throat: Negative for: mouth sores Cardiovascular/Respiratory: Negative for: chest pain, shortness of breath, cough Gastrointestinal: Negative for: abdominal pain, vomiting, diarrhea, black or bloody stools Genitourinary: Positive for: dysuria, hematuria, flank pain Musculoskeletal: Negative for: myalgias and arthralgias Skin: Negative for: laceration or lesion Neuro and psych: Negative for: fainting, head injury, seizure, trouble walking Endocrine/Heme/Lymph: Negative for: swollen lymph nodes, easy bruising Physical Exam Physical Exam BP 141/77 mmHg | Pulse 56 | Temp(Src) 98 F (36.7 C) (Oral) | Resp 20 | Ht 1.575 m (5' 2 ") | Wt 59 kg (130 lb 1.1 oz) | BMI 23.78 kg/m2 | SpO2 97% Pulse Oximetry interpretation: Normal General: Alert, in no apparent distress, sitting comfortably and joking with his . Eyes: Normal inspection, pupils equal and round, non-icteric Cardiovascular: Rate and rhythm normal No murmurs Respiratory: Breath sounds equal with wheezing noted bilaterally Abdomen: Soft, non-tender, non-distended, mild pain to palpation over epigastric area +CVA tenderness on left but not right No guarding or rebound Genitourinary: Deferred Rectal exam: Deferred Back: Normal inspection Skin: Color normal Warm and dry No rash Neuro: No motor deficit No sensory deficit Normal gait ED Course Medical Decision Making and Emergency Department Course ED Department Course 22:25: 45 y.o. male presenting with bilateral pain. Differential included nephrolithiasis, pyelonephritis, UTI. Also consider gastritis, hepatitis, pancreatitis White blood count was 9.34. Patient afebrile. Liver functions within normal limits. Lipase normal. Urinalysis was obtained and showed no signs of hematuria, but 2+ bacteria. However, I am suspicious the sample was contaminated due to high proportion of epithelial cells. Patient provided pecoce t for pain control. Patient has a history of repeated visits to several different emergency rooms, including 2 visits to this ED and [place] on 11/18/15. He has an ROB report of 13 visits in the last year. Dr. Isaac recognized the patient's name from his experience at a different hospital . During my exam the patient was joking with his and in no apparent distress. When Danuta leung RN, asked him if he was in pain he said "No, I'm not here for pain meds. I don't need a ny pain meds, I got them at home but try not to take them if I don't need to"; however, when I asked him if he was in pain, he reported 8/10 pain. His pain seemed disproportionate to t he exam. UA did reveal 2+ bacteria, but no hematuria or any signs of urinary dysfunction. I suspect a contaminated sample. Patient does not have fever, elevated white count, or hematuria, so a t this point I do not feel additional testing or imaging is warranted at this time. The go ent's CMP did show an elevated creatinine at 1.41, albumin of 3.5, and EGFR of 58. Vitals st able, and no evidence of acute process. I will recommend follow up with his PCP at this time . Records Reviewed Old medical records. Nursing notes. Labs & Radiology Results Laboratory Evaluation Results Procedure Component Value Ref Range Date/Time Urine microscopic only [[id number]] (Abnormal) Collected: 11/30/152247 Order Status: Completed Updated: 11/30/152309 WBC 6-10 0 - 5 /hpf RBC 1-5 0 - 2 /hpf EPITHELIAL 6-10 /lpf BACTERIA 2+ (A) NONE SEEN Crystals 4+ /hpf Urinalysis Comments CULTURE TO FOLLOW Lipase [[id number]] Collected: 11/30/152237 Order Status: Completed Specimen Information: Blood Updated: 11/30/152306 LIPASE 233 73 - 393 U/L Comprehensive metabolic panel [[id number]] (Abnormal) Collected: 11/30/152237 Order Status: Completed Specimen Information: Blood Updated: 11/30/152306 SODIUM 144 (H) 135 - 143 mmol/L POTASSIUM 4.1 3.5 - 4.9 mmol/L CHLORIDE 109 99 - 109 mmol/L CO2 26 23 - 32 mmol/L ANION GAP AGAP 13 5 - 20 mmol/L GLUCOSE 108 (H) 65 - 99 mg/dL BUN 25 8 - 25 mg/dL CREATININE 1.41 (H) 0.70 - 1.30 mg/dL BUN/CREAT 18 CALCIUM 8.7 8.5 - 10.5 mg/dL TOTAL PROTEIN 6.3 6.3 - 8.2 g/dL Albumin 3.5 (L) 3.6 - 5.0 g/dL GLOBULIN 2.8 1.3 - 4.9 g/dL A/G 1.2 1.0 - 2.4 TBIL 0.3 0.1 - 1.5 mg/dL ALK PHOS 92 35 - 115 U/L AST 21 10 - 45 U/L ALT 41 10 - 65 U/L EGFR 58 (L) >60 mL/min/1.73m2 Amylase [[id number]] Collected: 11/30/152237 Order Status: Completed Specimen Information: Blood Updated: 11/30/152306 AMYLASE 105 25 - 115 U/L Urinalysis (reflex to microscopic/reflex to culture) [[id number]] (Abnormal) Collected: 11/30/152247 Order Status: Completed Specimen Information: Urine / Urine, Clean Catch Updated: 01/11 COLOR UA YELLOW CLARITY CLOUDY Specific [place], UA 1.015 1.001 - 1.035 LEUKOCYTE ESTERASE NEGATIVE NEGATIVE NITRITE NEGATIVE NEGATIVE UROBILINOGEN 0.2 <1.1 mg/dL PROTEIN 30 (A) NEGATIVE mg/dL PH,URINE 7.5 4.6 - 8.0 BLOOD NEGATIVE NEGATIVE KETONES NEGATIVE NEGATIVE mg/dL BILIRUBIN NEGATIVE NEGATIVE GLUCOSE NEGATIVE NEGATIVE mg/dL CBC with differential [[id number]] (Abnormal) Collected: 11/30/152237 Order Status: Completed Specimen Information: Blood Updated: 11/30/152251 WBC 9.34 3.80 - 11.00 K/uL RBC 4.38 4.20 - 5.70 M/uL HGB 14.7 13.2 - 17.0 g/dL HCT 43.3 39.0 - 50.0 % MCV 98.9 80.0 - 100.0 fl MCH 33.5 27.0 - 34.0 pg MCHC 33.9 32.0 - 35.5 g/dL RDW SD 45.5 37 - 53 fl PLT 229 150 - 400 K/uL MPV 7.9 fl DIFF TYPE AUTOMATED NEUTROPHILS 55.91 % LYMPHOCYTES 34.40 % MONOCYTES 6.21 % EOSINOPHILS 2.11 % BASOPHILS 1.37 % NEUTROPHILS ABS 5.22 1.90 - 7.40 K/uL LYMPHOCYTES ABS 3.21 1.00 - 3.90 K/uL MONOCYTES ABS 0.58 0.00 - 0.80 K/uL EOSINOPHILS ABS 0.20 0.00 - 0.50 K/uL BASOPHILS ABS 0.13 (H) 0.00 - 0.10 K/uL Radiology and EKG Evaluation Imaging Results None Diagnosis & Disposition ED Diagnosis None Disposition: ED Disposition None Follow-up Information None Discharge Medications: New Prescriptions No new medications Reg Nguyen PA-C 11/30/15 3456 kristopher philip in this encounter Plan of Treatment Not on filedocumented as of this encounter Procedures + +--------+ + + + | Procedure Name | Priori | Date/Time | Associated Diagnosis | Comments | | | ty | | | | + +--------+ + + + | URINALYSIS, REFLEX | Routin | 11/30/2015 | | Results for this | | MICROSCOPIC AND/OR | e | 10:48 PM | | procedure are in the | | CULTURE | | PST | | results section. | + +--------+ + + + | URINALYSIS, | Routin | 11/30/2015 | | Results for this | | MICROSCOPIC ONLY | e | 10:48 PM | | procedure are in the | | | | PST | | results section. | + +--------+ + + + | CULTURE, URINE | STAT | 11/30/2015 | | Results for this | | | | 10:48 PM | | procedure are in the | | | | PST | | results section. | + +--------+ + + + | EXTERNAL LAB: CBC | Routin | 11/30/2015 | | Results for this | | | e | 10:38 PM | | procedure are in the | | | | PST | | results section. | + +--------+ + + + | LIPASE | Routin | 11/30/2015 | | Results for this | | | e | 10:38 PM | | procedure are in the | | | | PST | | results section. | + +--------+ + + + | AMYLASE | Routin | 11/30/2015 | | Results for this | | | e | 10:38 PM | | procedure are in the | | | | PST | | results section. | + +--------+ + + + | COMPREHENSIVE | Routin | 11/30/2015 | | Results for this | | METABOLIC PANEL | e | 10:38 PM | | procedure are in the | | | | PST | | results section. | + +--------+ + + + documented in this encounter Results Culture, Urine (11/30/2015 10:48 PM PST) + + | Specimen | + + | | + + + + + | Narrative | Performed At | + + + | Specimen Description CLEAN CATCH URINE CULTURE | EXTERNAL LAB | | NO GROWTH | | | Testing performed at [facility], [address] | | | [place] [address] | | + + + + +---------+ + + | Performing | Address | City/State/Zipcode | Phone Number | | Organization | | | | + +---------+ + + | EXTERNAL LAB | | | | + +---------+ + + Urinalysis, Reflex Microscopic and/or Culture (11/30/2015 10:48 PM PST) + + + + + + | Component | Value | Ref Range | Performed | Pathologist | | | | | At | Signature | + + + + + + | Color | YELLOWComment: Testing | | EXTERNAL | | | | performed at [facility], [address] | | LAB | | | | [address], | | | | | | [place] [address] | | | | + + + + + + | Clarity | CLOUDYComment: Testing | | EXTERNAL | | | | performed at [facility], [address] | | LAB | | | | [address], | | | | | | [place] [address] | | | | + + + + + + | Specific | 1.015Comment: Testing | 1.001 - 1.035 | EXTERNAL | | | [place], | performed at [facility], [address] | | LAB | | | Urine | [address], | | | | | | [place] [address] | | | | + + + + + + | Leukocyte | NEGATIVEComment: Testing | | EXTERNAL | | | Esterase, | performed at [facility], [address] | | LAB | | | Urine | [address], | | | | | | [place] [address] | | | | + + + + + + | Nitrite, | NEGATIVEComment: Testing | | EXTERNAL | | | Urine | performed at [facility], [address] | | LAB | | | | [address], | | | | | | [place] [address] | | | | + + + + + + | Urobilinoge | 0.2Comment: Testing | mg/dL | EXTERNAL | | | n, Urine | performed at [facility], [address] | | LAB | | | | [address], | | | | | | [place] [address] | | | | + + + + + + | Protein, | 30 (A)Comment: Testing | mg/dL | EXTERNAL | | | Urine | performed at [facility], [address] | | LAB | | | | [address], | | | | | | [place] [address] | | | | + + + + + + | pH, Urine | 7.5Comment: Testing | 4.6 - 8.0 | EXTERNAL | | | | performed at [facility], [address] | | LAB | | | | [address], | | | | | | [place] [address] | | | | + + + + + + | Blood, | NEGATIVEComment: Testing | | EXTERNAL | | | Urine | performed at [facility], [address] | | LAB | | | | [address], | | | | | | [place] [address] | | | | + + + + + + | Ketones | NEGATIVEComment: Testing | mg/dL | EXTERNAL | | | | performed at [facility], [address] | | LAB | | | | [address], | | | | | | [place] [address] | | | | + + + + + + | Bilirubin, | NEGATIVEComment: Testing | | EXTERNAL | | | Urine | performed at [facility], [address] | | LAB | | | | [address], | | | | | | [place] [address] | | | | + + + + + + | Glucose, | NEGATIVEComment: Testing | mg/dL | EXTERNAL | | | Urine | performed at [facility], [address] | | LAB | | | | [address] [place], | | | | | | [place] [address] | | | | + + + + + + + + | Specimen | + + | Urine specimen | | (specimen) | + + + +---------+ + + | Performing | Address | City/State/Zipcode | Phone Number | | Organization | | | | + +---------+ + + | EXTERNAL LAB | | | | + +---------+ + + Urinalysis, Microscopic Only (11/30/2015 10:48 PM PST) + + + + + + | Component | Value | Ref Range | Performed | Pathologist | | | | | At | Signature | + + + + + + | WBC, UA | 6-10Comment: Testing | 0 - 5 /hpf | EXTERNAL | | | | performed at [facility], [address] | | LAB | | | | [address], | | | | | | [place] [address] | | | | + + + + + + | RBC, UA | 1-5Comment: Testing | 0 - 2 /hpf | EXTERNAL | | | | performed at [facility], [address] | | LAB | | | | [address], | | | | | | [place] [address] | | | | + + + + + + | Epithelial | 6-10Comment: Testing | /lpf | EXTERNAL | | | Cells | performed at [facility], [address] | | LAB | | | | [address], | | | | | | [place] [address] | | | | + + + + + + | Bacteria, | 2+ (A)Comment: Testing | | EXTERNAL | | | UA | performed at [facility], [address] | | LAB | | | | [address], | | | | | | [place] [address] | | | | + + + + + + | Crystals | 4+Comment: | /hpf | EXTERNAL | | | | PHOSPHATESTesting | | LAB | | | | performed at [facility], [address] | | | | | | [address], | | | | | | [place] [address] | | | | + + + + + + | Urinalysis | CULTURE TO | | EXTERNAL | | | Comments | FOLLOWComment: Testing | | LAB | | | | performed at [facility], [address] | | | | | | [address], | | | | | | [place] [address] | | | | + + + + + + + + | Specimen | + + | | + + + +---------+ + + | Performing | Address | City/State/Zipcode | Phone Number | | Organization | | | | + +---------+ + + | EXTERNAL LAB | | | | + +---------+ + + External Lab: CBC (11/30/2015 10:38 PM PST) + + + + + + | Component | Value | Ref Range | Performed | Pathologist | | | | | At | Signature | + + + + + + | WBC | 9.34Comment: Testing | 3.80 - 11.00 | EXTERNAL | | | | performed at [facility], [address] | K/uL | LAB | | | | [address], | | | | | | [place] [address] | | | | + + + + + + | Red Blood | 4.38Comment: Testing | 4.20 - 5.70 | EXTERNAL | | | Cells | performed at [facility], [address] | M/uL | LAB | | | Counted | [address], | | | | | | [place] [address] | | | | + + + + + + | Hemoglobin | 14.7Comment: Testing | 13.2 - 17.0 | EXTERNAL | | | | performed at [facility], [address] | g/dL | LAB | | | | [address], | | | | | | [place] [address] | | | | + + + + + + | Hematocrit, | 43.3Comment: Testing | 39.0 - 50.0 % | EXTERNAL | | | POC | performed at [facility], [address] | | LAB | | | | [address], | | | | | | [place] [address] | | | | + + + + + + | MCV | 98.9Comment: Testing | 80.0 - 100.0 fl | EXTERNAL | | | | performed at [facility], [address] | | LAB | | | | [address], | | | | | | [place] [address] | | | | + + + + + + | MCH | 33.5Comment: Testing | 27.0 - 34.0 pg | EXTERNAL | | | | performed at [facility], [address] | | LAB | | | | [address], | | | | | | [place] [address] | | | | + + + + + + | MCHC | 33.9Comment: Testing | 32.0 - 35.5 | EXTERNAL | | | | performed at [facility], [address] | g/dL | LAB | | | | [address], | | | | | | [place] [address] | | | | + + + + + + | RDW-CV | 45.5Comment: Testing | 37 - 53 fl | EXTERNAL | | | | performed at [facility], [address] | | LAB | | | | [address], | | | | | | [place] [address] | | | | + + + + + + | Platelet | 229Comment: Testing | 150 - 400 K/uL | EXTERNAL | | | Count | performed at [facility], [address] | | LAB | | | Plasma | [address], | | | | | | [place] [address] | | | | + + + + + + | MPV | 7.9Comment: Testing | fl | EXTERNAL | | | | performed at [facility], [address] | | LAB | | | | [address], | | | | | | [place] [address] | | | | + + + + + + | Differentia | AUTOMATEDComment: | | EXTERNAL | | | l Type | Testing performed at | | LAB | | | | [facility], [address], | | | | | | [place] [address] | | | | + + + + + + | % Segmented | 55.91Comment: Testing | % | EXTERNAL | | | | performed at [facility], [address] | | LAB | | | Neutrophils | [address], | | | | | | [place] [address] | | | | + + + + + + | % | 34.40Comment: Testing | % | EXTERNAL | | | Lymphocytes | performed at [facility], [address] | | LAB | | | | [address], | | | | | | [place] [address] | | | | + + + + + + | % Monocytes | 6.21Comment: Testing | % | EXTERNAL | | | | performed at [facility], [address] | | LAB | | | | [address], | | | | | | [place] [address] | | | | + + + + + + | % | 2.11Comment: Testing | % | EXTERNAL | | | Eosinophils | performed at [facility], [address] | | LAB | | | | [address], | | | | | | [place] [address] | | | | + + + + + + | % Basophils | 1.37Comment: Testing | % | EXTERNAL | | | | performed at [facility], [address] | | LAB | | | | [address], | | | | | | [place] [address] | | | | + + + + + + | Absolute | 5.22Comment: Testing | 1.90 - 7.40 | EXTERNAL | | | Segmented | performed at [facility], [address] | K/uL | LAB | | | Neutrophils | [address], | | | | | | [place] [address] | | | | + + + + + + | Absolute | 3.21Comment: Testing | 1.00 - 3.90 | EXTERNAL | | | Lymphocytes | performed at [facility], [address] | K/uL | LAB | | | | [address], | | | | | | [place] [address] | | | | + + + + + + | Absolute | 0.58Comment: Testing | 0.00 - 0.80 | EXTERNAL | | | Monocytes | performed at [facility], [address] | K/uL | LAB | | | | [address], | | | | | | [place] [address] | | | | + + + + + + | Absolute | 0.20Comment: Testing | 0.00 - 0.50 | EXTERNAL | | | Eosinophils | performed at [facility], [address] | K/uL | LAB | | | | [address], | | | | | | [place] [address] | | | | + + + + + + | Absolute | 0.13 (H)Comment: Testing | 0.00 - 0.10 | EXTERNAL | | | Basophils | performed at [facility], [address] | K/uL | LAB | | | | [address], | | | | | | [place] [address] | | | | + + + + + + + + | Specimen | + + | Blood specimen | | (specimen) | + + + +---------+ + + | Performing | Address | City/State/Zipcode | Phone Number | | Organization | | | | + +---------+ + + | EXTERNAL LAB | | | | + +---------+ + + Lipase (11/30/2015 10:38 PM PST) + + + + + + | Component | Value | Ref Range | Performed | Pathologist | | | | | At | Signature | + + + + + + | Lipase | 233Comment: Testing | 73 - 393 U/L | EXTERNAL | | | | performed at [facility], [address] | | LAB | | | | [address], | | | | | | [place] [address] | | | | + + + + + + + + | Specimen | + + | Blood specimen | | (specimen) | + + + +---------+ + + | Performing | Address | City/State/Zipcode | Phone Number | | Organization | | | | + +---------+ + + | EXTERNAL LAB | | | | + +---------+ + + Amylase (11/30/2015 10:38 PM PST) + + + + + + | Component | Value | Ref Range | Performed | Pathologist | | | | | At | Signature | + + + + + + | Amylase | 105Comment: Testing | 25 - 115 U/L | EXTERNAL | | | | performed at [facility], [address] | | LAB | | | | [address], | | | | | | [place] [address] | | | | + + + [...] + +---------+ + + Comprehensive Metabolic Panel (11/30/2015 10:38 PM PST) + + + + + + | Component | Value | Ref Range | Performed | Pathologist | | | | | At | Signature | + + + + + + | Na | 144 (H)Comment: Testing | 135 - 143 | EXTERNAL | | | | performed at [facility], [address] | mmol/L | LAB | | | | [address], | | | | | | [place] [address] | | | | + + + + + + | K | 4.1Comment: Testing | 3.5 - 4.9 | EXTERNAL | | | | performed at [facility], [address] | mmol/L | LAB | | | | [address], | | | | | | [place] [address] | | | | + + + + + + | Cl | 109Comment: Testing | 99 - 109 mmol/L | EXTERNAL | | | | performed at [facility], [address] | | LAB | | | | [address], | | | | | | [place] [address] | | | | + + + + + + | CO2 | 26Comment: Testing | 23 - 32 mmol/L | EXTERNAL | | | | performed at [facility], [address] | | LAB | | | | [address], | | | | | | [place] [address] | | | | + + + + + + | Anion Gap | 13Comment: Testing | 5 - 20 mmol/L | EXTERNAL | | | | performed at [facility], [address] | | LAB | | | | [address], | | | | | | [place] [address] | | | | + + + + + + | Glucose, | 108 (H)Comment: Testing | 65 - 99 mg/dL | EXTERNAL | | | Fasting | performed at [facility], [address] | | LAB | | | | [address], | | | | | | [place] [address] | | | | + + + + + + | BUN | 25Comment: Testing | 8 - 25 mg/dL | EXTERNAL | | | | performed at [facility], [address] | | LAB | | | | [address], | | | | | | [place] [address] | | | | + + + + + + | Creatinine | 1.41 (H)Comment: Testing | 0.70 - 1.30 | EXTERNAL | | | | performed at [facility], [address] | mg/dL | LAB | | | | [address] [place], | | | | | | [place] [address] | | | | + + + + + + | BUN/Creatin | 18Comment: Testing | | EXTERNAL | | | ine Ratio | performed at [facility], [address] | | LAB | | | | [address] [place], | | | | | | [place] [address] | | | | + + + + + + | Calcium | 8.7Comment: Testing | 8.5 - 10.5 | EXTERNAL | | | | performed at [facility], [address] | mg/dL | LAB | | | | [address] [place], | | | | | | [place] [address] | | | | + + + + + + | Protein, | 6.3Comment: Testing | 6.3 - 8.2 g/dL | EXTERNAL | | | Total | performed at [facility], [address] | | LAB | | | | [address] [place], | | | | | | [place] [address] | | | | + + + + + + | Albumin | 3.5 (L)Comment: Testing | 3.6 - 5.0 g/dL | EXTERNAL | | | | performed at [facility], [address] | | LAB | | | | [address] [place], | | | | | | [place] [address] | | | | + + + + + + | Globulin | 2.8Comment: Testing | 1.3 - 4.9 g/dL | EXTERNAL | | | | performed at [facility], [address] | | LAB | | | | [address] [place] [place], | | | | | | [place] [address] | | | | + + + + + + | A/G Ratio | 1.2Comment: Testing | 1.0 - 2.4 | EXTERNAL | | | | performed at [facility], [address] | | LAB | | | | [address] [place], | | | | | | [place] [address] | | | | + + + + + + | Bilirubin | 0.3Comment: Testing | 0.1 - 1.5 mg/dL | EXTERNAL | | | Total | performed at [facility], [address] | | LAB | | | | [address] [place], | | | | | | [place] [address] | | | | + + + + + + | ALP, | 92Comment: Testing | 35 - 115 U/L | EXTERNAL | | | External | performed at [facility], [address] | | LAB | | | | [address] [place], | | | | | | [place] [address] | | | | + + + + + + | AST | 21Comment: Testing | 10 - 45 U/L | EXTERNAL | | | | performed at [facility], [address] | | LAB | | | | [address] [place], | | | | | | [place] [address] | | | | + + + + + + | ALT | 41Comment: Testing | 10 - 65 U/L | EXTERNAL | | | | performed at [facility], [address] | | LAB | | | | [address], | | | | | | [place] [address] | | | | + + + + + + | Estimated | 58 (L)Comment: GFR <60: | mL/min/1.73m2 | EXTERNAL | [...] | | | | | | at [facility], [address] | | | | | | [place], [place] | | | | | | [address] | | | | + + + [...] + | Diagnosis | + + | Flank pain Abdominal pain, unspecified site | + + documented in this encounter
--- OUTSIDE RECORDS SUMMARY | ~2020-03-25 | XMS | Encounter Summary ---
Demographics + + + | Address | [address] | | | [place] [address] | + + + | Home Phone | | + + + | Preferred Language | Unknown | + + + | Marital Status | Single | + + + | Amish Affiliation | 1013 | + + + | Race | Unknown | + + + | Ethnic Group | Unknown | + + + Author + + + | Author | [facility] | | | and [place] | + + + | Organization | [facility] | | | and [...] Team Providers + +------+ + | Care Animal Husbandry Technician Name | Role | Phone | + +------+ + | No, Physician | PCP | Unavailable | + +------+ + Reason for Visit + +--------+ + | Reason | Onset | Comments | | | Date | | + +--------+ + | Appointment | 06/22/ | cancel colonoscopy | | | 2013 | | + +--------+ + Encounter Details +--------+ + + + + | Date | Type | Department | Care Team | Description | +--------+ + + + + | 06/22/ | Telephone | [facility] | Carmelo Patterson MD | Appointment (cancel | | 2013 | | GASTROENTEROLOGY | [address] | colonoscopy) | | | | [address] [facility] | [place], [place] | | | | | [address] [place], [place] | [address] | | | | | [address] | [phone] | | | | | [phone] | | | +--------+ + + + [...] Telephone Encounter - Thania Emerson RN - 06/22/2014 9:13 AM PDTCalled patient back he sta phil that he is sick right now and will call back when he is ready to schedule. Email sent zander Walker to cancel patient. Telephone Encounter - WhiteNayginny Jimenez - 06/22/2014 9:06 AM PDTPatient is calling to pushpa esquivel 06/23/[address] Patterson. He states he has an upper respiratory bug. Please call E lectronically signed by Sandra White at 06/22/2014 9:07 AM PDTdocumented in this encounter Plan of Treatment Not on filedocumented as of this encounter Visit Diagnoses Not on filedocumented in this encounter"
--- OUTSIDE RECORDS SUMMARY | ~2020-03-25 | XMS | Encounter Summary ---
Demographics + + + | Address | [address] | | | [place] [address] | + + + | Home Phone | | + + + | Preferred Language | Unknown | + + + | Marital Status | Single | + + + | Anglican Affiliation | 1013 | + + + | Race | Unknown | + + + | Ethnic Group | Unknown | + + + Author + + + | Author | [facility] | | | and [place] | + + + | Organization | [facility] | | | and [...] Team Providers + +------+ + | Care Factory Machine Computer Operator Name | Role | Phone | + +------+ + | Emily Green DO | PCP | | + +------+ + Reason for Visit + +--------+ + | Reason | Onset | Comments | | | Date | | + +--------+ + | Procedure | 02/05/ | r/s liliane/khoa | | | 2016 | | + +--------+ + Encounter Details +--------+ + + + + | Date | Type | Department | Care Team | Description | +--------+ + + + + | 02/05/ | Telephone | [facility] | Carmelo Patterson MD | Procedure (r/s | | 2015 | | GASTROENTEROLOGY | [address] | egd/colon) | | | | [address] [facility] | [place], [place] | | | | | [address] [place], [place] | [address] | | | | | [address] | [phone] | | | | | [phone] | | | +--------+ + + + [...] this encounter Miscellaneous Notes Telephone Encounter - Nemo Tejada RN - 02/06/2016 8:13 AM PDTPt called in again this morning. It appears his significant other has an appointment she has to keep that is o n the same day as his procedure on 02/12. He asked to r/s to next available; pt is now sched uled with Dr. Patterson for EGD/Colon on 03/12/16 at 0800 check in. Notified [place] Booking. Electron ically signed by Nemo Tejada RN at 02/06/2016 8:17 AM PDTTelephone Encounter - Henna Carrasco - 02/06/2016 7:56 AM PDTPatient called in and left a message stating he needs to reschedule his CS on the . Please give him a call back. documented in this encounter Plan of Treatment Not on filedocumented as of this encounter Visit Diagnoses Not on filedocumented in this encounter"
--- OUTSIDE RECORDS SUMMARY | ~2020-03-25 | XMS | Encounter Summary ---
Demographics + + + | Address | [address] | | | [place] [address] | + + + | Home Phone [...] + + + | Author | [facility] | + + + | Organization | [facility] | + + + | Address | Unknown | + + + | Phone | Unavailable | + + + Support + + +---------+ + | Name | Relationship | Address | Phone | + + +---------+ + | Thalia Armani | ECON | Unknown | | + + +---------+ + Care Team Providers + +------+ + | Care Orthotist Prosthetist Name | Role | Phone | + +------+ + | Meaghan Zhong MD | PCP | | + +------+ + Reason for Visit + + + | Reason | Comments | + + + | Medical Records | 12/10-12/12/2015 [facility] | | Review | | + + + Encounter Details +--------+ + + + + | Date | Type | Department | Care Team | Description | +--------+ + + + + | 12/11/ | Abstract | Digestive Health | [address], | Medical Records | | 2015 | | Center at [facility] [address] | MD | Review | | | | [place] | | (12/10-12/12/2015 St | | | | Mailcode: Center | | [facility] records) | | | | for Health and | | | | | | [facility] [place] [facility] | | | | | | [place], [place] | | | | | | [address] | | | | | | [phone] | | | +--------+ + + + [...]
--- OUTSIDE RECORDS SUMMARY | ~2020-03-25 | XMS | Encounter Summary ---
Demographics + + + | Address | [address] | | | [place] [address] | + + + | Home Phone | | + + + | Preferred Language | Unknown | + + + | Marital Status | Single | + + + | Buddhism Affiliation | 1013 | + + + | Race | Unknown | + + + | Ethnic Group | Unknown | + + + Author + + + | Author | [facility] | | | and [place] | + + + | Organization | [facility] | | | and [place] | [...] Team Providers + +------+ + | Care Rf Engineer Name | Role | Phone | + +------+ + PCP | Unavailable | + +------+ + Encounter Details +--------+ + + + + | Date | Type | Department | Care Team | Description | +--------+ + + + + | 07/07/ | Hospital | [facility] | Clement Ventura | | | 2010 | Encounter | HOSPITAL EMERGENCY | MD [address] | | | | | [address] | [facility] | | | | | [address] [place], [place] | [place] [address] | | | | | [address] | [phone] | | | | | [phone] | | | +--------+ + + + [...]
--- OUTSIDE RECORDS SUMMARY | ~2020-03-25 | XMS | Encounter Summary ---
Demographics + + + | Address | [address] | | | [place] [address] | + + + | Home Phone | | + + + | Preferred Language | Unknown | + + + | Marital Status | Single | + + + | Pentecostal Affiliation | 1013 | + + + | Race | Unknown | + + + | Ethnic Group | Unknown | + + + Author + + + | Author | [facility] | | | and [place] | + + + | Organization | [facility] | | | and [place] [...] Team Providers + +------+ + | Care Registered Art Therapist Name | Role | Phone | [...] | | | | | complication | [facility], [place] | [place] [address] | | | | | , | [address] | Phone: | | | | | unspecified | Phone: | [phone] | | | | | gastrointest | [phone] | Fax: | | | | | inal tract | Fax: | [phone] | | | | | location | [phone] | | | | | | (HCC) [...] | | | | | | | [place] | | | | | | | COLONOSCOPY | | | | | | | FLX DX | | | | | | | W/COLLJ SPEC | | | | | | | WHEN PFRMD | | | | | | | [place] | | | | | | | COLONOSCOPY | | | | | | | W/BIOPSY | | | | | | | SINGLE/MULTI | | | | | | | PLE FL | | | | | | | COLSC FLX | | | | | | | W/RMVL OF | | | | | | | TUMOR POLYP | | | | | | | LESION SNARE | | | | | | | TQ FL | | | | | | | ESOPHAGOGAST | | | | | | | RODUODENOSCO | | | | | | | PY TRANSORAL | | | | | | | DIAGNOSTIC | | | | | | | FL EDG | | | | | | | TRANSORAL | | | | | | | BIOPSY | | | | | | | SINGLE/MULTI | | | | | | | PLE FL | | | | | | | ANESTH,INTES | | | | | | | MARLIN,SCOPE,L | | | | | | | OW [place] | | | | | | | ANESTH,UGI | | | | | | | ENDOSCOPY | | | +--------+ + + + + + Encounter Details +--------+ + + + + | Date | Type | Department | Care Team | Description | +--------+ + + + + | 01/21/ | Orders Only | [facility] | Carmleo Patterson MD | Crohn's disease with | | 2015 | | GASTROENTEROLOGY | [address] [facility] | complication, | | | | [address] [facility] | [place], [place] | unspecified | | | | [address] | [address] | gastrointestinal | | | | [address] | [phone] | tract location (HCC) | | | | [phone] | | (Primary Dx); Blood | | [...]
--- OUTSIDE RECORDS SUMMARY | ~2020-03-25 | XMS | Encounter Summary ---
Demographics + + + | Address | [address] | | | [place] [address] | + + + | Home Phone [...] + + + | Author | [facility] | | | and [place] | + + + | Organization | [facility] | [...] Team Providers + +------+ + | Care Vice President Education Name | Role | Phone | + +------+ + | No, Physician | PCP | Unavailable | + +------+ + Encounter Details +--------+ + + + + | Date | Type | Department | Care Team | Description | +--------+ + + + + | 03/21/ | Abstract | [facility] [place] | Reg [place], | | | 2013 | | GASTROENTEROLOGY | [address] | | | | | [address] [place] | [address] [place], | | | | | [address] [place], [place] | [place] [address] | | | | | [address] | [phone] | | | | | [phone] | | | +--------+ + + + [...]
--- OUTSIDE RECORDS SUMMARY | ~2020-03-25 | XMS | Encounter Summary ---
Demographics + + + | Address | [address] | | | [place] [address] | + + + | Home Phone | | + + + | Preferred Language | Unknown | + + + | Marital Status | Single | + + + | Sabianism Affiliation | 1013 | + + + | Race | Unknown | + + + | Ethnic Group | Unknown | + + + Author + + + | Author | [facility] | | | and [place] | + + + | Organization | [facility] | | | and [place] [...] Team Providers + +------+ + | Care Locomotive Mechanic Apprentice Name | Role | Phone | + +------+ + PCP | Unavailable | + +------+ + Encounter Details +--------+ + + + + | Date | Type | Department | Care Team | Description | +--------+ + + + + | 02/06/ | Hospital | [facility] | Nima Sena | | | 2008 | Encounter | HOSPITAL EMERGENCY | [address] | | | | | C[address] | [facility] | | | | | [address] [place], [place] | [place] [address] | | | | | [address] | [phone] | | | | | [phone] | | | +--------+ + + + [...]
--- OUTSIDE RECORDS SUMMARY | ~2020-03-25 | XMS | Encounter Summary ---
Demographics + + + | Address | [address] | | | [place] [address] | + + + | Home Phone [...] Author + + + | Author | [facility] | + + + | Organization | [facility] | + + + | Address | Unknown | + + + | Phone | Unavailable | + + + Support + + +---------+ + | Name | Relationship | Address | Phone | + + +---------+ + | Thalia Armani | ECON | Unknown | | + + +---------+ + Care Team Providers + +------+ + | Care Forestry Farm Laborer Name | Role | Phone | + [...] | | 2016 | | Center at [facility] [address] | | | | | | [address] | | | | | | Mailcode: Center | | | | | | for Health and | | | | | | Healing, [address] | | | | | | [place], [place] | | | | | | [address] | | | | | | [phone] | | | +--------+ + + + [...]
--- OUTSIDE RECORDS SUMMARY | ~2020-03-25 | XMS | Encounter Summary ---
Demographics + + + | Address | [address] | | | [place] [address] | + + + | Home Phone | | + + + | Preferred Language | Unknown | + + + | Marital Status | Single | + + + | Jain Affiliation | 1013 | + + + | Race | Unknown | + + + | Ethnic Group | Unknown | + + + Author + + + | Author | [facility] | | | and [place] | + + + | Organization | [facility] | | | and [...] Providers + +------+ + | Care General Production Manager Name | Role | Phone | + +------+ + PCP | Unavailable | + +------+ + Encounter Details +--------+ + + + + | Date | Type | Department | Care Team | Description | +--------+ + + + + | 10/22/ | Hospital | [facility] | Conversion | | | 2010 | Encounter | HOSPITAL EMERGENCY | Transaction, | | | | | CENTER [address] | Provider Unknown | | | | | [address] [place], [place] | | | | | | [address] | (Fax) | | | | | [phone] | | | +--------+ + + + [...]
--- OUTSIDE RECORDS SUMMARY | ~2020-03-25 | XMS | Encounter Summary ---
Demographics + + + | Address | [address] | | | [place] [address] | + + + | Home Phone [...] Author + + + | Author | [facility] | + + + | Organization | [facility] | + + + | Address | Unknown | + + + | Phone | Unavailable | + + + Support + + +---------+ + | Name | Relationship | Address | Phone | + + +---------+ + | Thalia Armani | ECON | Unknown | | + + +---------+ + Care Team Providers + +------+ + | Care Neurology Professor Name | Role | Phone | + +------+ + | Meaghan Zhong MD | PCP | | + +------+ + Encounter Details +--------+ + + + + | Date | Type | Department | Care Team | Description | +--------+ + + + + | 05/14/ | Orders Only | Digestive Health | [address], | | | 2014 | | [place] [facility] [address] | | | | | | [place] | | | | | | Mailcode: [place] | | | | | | [facility] and | | | | | | Healing, [address] | | | | | | [facility] [place] | | | | | | [address] | | | | | | [phone] | | | +--------+ + + + [...]
--- OUTSIDE RECORDS SUMMARY | ~2020-03-25 | XMS | Encounter Summary ---
Demographics + + + | Address | [address] | | | [place] [address] | + + + | Home Phone [...] Author + + + | Author | [facility] | + + + | Organization | [facility] | + + + | Address | Unknown | + + + | Phone | Unavailable | + + + Support + + +---------+ + | Name | Relationship | Address | Phone | + + +---------+ + | Thalia Armani | ECON | Unknown | | + + +---------+ + Care Team Providers + +------+ + | Care Blanket Binder Name | Role | Phone | + [...] 2016 | | Center at [facility] [address] | | | | | | [address] | | | | | | Mailcode: Center | | | | | | for Health and | | | | | | Healing, [address] | | | | | | [place], [place] | | | | | | [address] | | | | | | [phone] | | | +--------+ + + + [...]
--- OUTSIDE RECORDS SUMMARY | ~2020-03-25 | XMS | Encounter Summary ---
Demographics + + + | Address | [address] | | | [place] [address] | + + + | Home Phone | | + + + | Preferred Language | Unknown | + + + | Marital Status | Single | + + + | Mandaeism Affiliation | CHR | + + + | Race | White | + + + | Ethnic Group | Not or | + + + Author + + + | Author | [facility] | + + + | Organization | [facility] | + + + | Address | Unknown | + + + | Phone | Unavailable | + + + Support + + +---------+ + | Name | Relationship | Address | Phone | + + +---------+ + | Thalia Armani | ECON | Unknown | | + + +---------+ + Care Team Providers + +------+ + | Care Engraved Roller Inspector Name | Role | Phone | + [...] | 2015 | on | Center at [facility] [address] | MD | (Multiple dates - | | | | [address] | | Ruth Alicia/St | | | | Mailcode: [place] | | Ravi'mohsen) | | | | for Health and | | | | | | [facility], [place] [address] | | | | | | [place], [place] | | | | | | [address] | | | | | | [phone] | | | +--------+ + + + [...] + | [facility] | | | [phone] | | HOSPITAL | | | | + +---------+ + + | [facility] | | [place], [place] | [phone] | | HOSPITAL | | | | [...] + | [facility] | | | [phone] | | HOSPITAL | | | | + +---------+ + + | [facility] | | [place] | [phone] | | HOSPITAL | | | | [...] + + | [facility] | [address] | [place] [address] | [phone] | | HOSPITAL | [address] | | [...] 40.2 | 39.0 - 51.9 % | RUHT | | | | | | RONDE [...] + + | [facility] | [address] | [place] [address] | [phone] | | HOSPITAL | [address] | | [...] + + | [facility] | [address] | [place] [address] | [phone] | | HOSPITAL | [address] | | [...] + + | [facility] | [address] | [place] [address] | [phone] | | HOSPITAL | [address] | | [...] + + | [facility] | [address] | [place] [address] | [phone] | | HOSPITAL | [address] | | [...] + | BENZODIAZEP | NEG | | RUTH | | | INE SCR, UR | [...] + + | [facility] | [address] | [place] [address] | [phone] | | HOSPITAL | [address] | | [...] + + | [facility] | [address] | [place] [address] | [phone] | | HOSPITAL | [address] | | [...] + + | [facility] | [address] | [place] [address] | [phone] | | HOSPITAL | [address] | | [...] | [address] | [place] [address] | [phone] | | HOSPITAL | [address] | | [...] + + | [facility] | [address] | [place] [address] | [phone] | | HOSPITAL | [address] | | [...] + + | [facility] | [address] | [place] [address] | [phone] | | HOSPITAL | [address] | | [...] + + | [facility] | [address] | [place] [address] | [phone] | | HOSPITAL | [address] | | [...] | [address] | [place] [address] | [phone] | | HOSPITAL | [address] | | [...] | 6.30 | 2.80 - 7.70 | RUTH | [...] + + | [facility] | [address] | [place] [address] | [phone] | | HOSPITAL | [address] | | [...] | [address] | [place] [address] | [phone] | | HOSPITAL | [address] | | [...] + + | [facility] | [address] | [place] [address] | [phone] | | HOSPITAL | [address] | | [...] + + | [facility] | [address] | [place] [address] | [phone] | | HOSPITAL | [address] | | [...] + + | [facility] | [address] | [place] [address] | [phone] | | HOSPITAL | [address] | | [...] + + | [facility] | [address] | [place] [address] | [phone] | | HOSPITAL | [address] | | [...] + + | [facility] | [address] | [place] [address] | [phone] | | HOSPITAL | [address] | | [...] + + | [facility] | [address] | [place] [address] | [phone] | | HOSPITAL | [address] | | [...] + + | [facility] | [address] | [place] [address] | [phone] | | HOSPITAL | [address] | | [...] + + | [facility] | [address] | [place] [address] | [phone] | | HOSPITAL | [address] | | [...] + + | [facility] | [address] | [place] [address] | [phone] | | HOSPITAL | [address] | | [...] + + | [facility] | [address] | [place] [address] | [phone] | | HOSPITAL | [address] | | [...] + + | [facility] | [address] | [place] [address] | [phone] | | HOSPITAL | [address] | | | + + + + + documented in this encounter Visit Diagnoses Not on filedocumented in this encounter"
--- OUTSIDE RECORDS SUMMARY | ~2020-03-25 | XMS | Encounter Summary ---
Demographics + + + | Address | [address] | | | [place] [address] | + + + | Home Phone | | + + + | Preferred Language | Unknown | + + + | Marital Status | Single | + + + | Holiness Affiliation | 1013 | + + + | Race | Unknown | + + + | Ethnic Group | Unknown | + + + Author + + + | Author | [facility] | | | and [place] | + + + | Organization | [facility] | [...] Team Providers + +------+ + | Care Hydraulic Jack Adjuster Name | Role | Phone | + +------+ + | No, Physician | PCP | Unavailable | + +------+ + Encounter Details +--------+ + + + + | Date | Type | Department | Care Team | Description | +--------+ + + + + | 07/03/ | Hospital | [facility] | [place], | | | 2014 | Encounter | [facility] | DO [address] | | | | | MEDICAL [facility] [address] | [place] [place] [address] | | | | | [address] [place], | [phone] | | | | | [place] [address] | | | | | | [phone] | | | +--------+ + + + [...]
--- OUTSIDE RECORDS SUMMARY | ~2020-03-25 | XMS | Clinical Summary ---
Demographics + + + | Address | [address] | | | [place] [address] | + + + | Home Phone | | + + + | Preferred Language | Unknown | + + + | Marital Status | Single | + + + | Evangelical Affiliation | CHR | + + + [...] Team Providers + +------+ + | Care Small Engine Trainer Name | Role | Phone | + +------+ + | Meaghan Zhong MD | PCP | | + +------+ + Source Comments PAT is fully live on both [facility] Ambulatory and [facility] InPatient.[facility] Allergies + + + + + + [...] | | | + +--------+ +--------+-------+---------+--------+ | SUPERVISOR [employer]TO[employer]AT[employer] MEDICAID | SUPERVISOR CYTOGENETIC LABORATORY | xxxxxxxx | | | | Medica [...] | | christy/Livan | | 1971 | [phone] | [place] [address] | | | david | | | 0 (Home) | | + +--------+ +--------+ + +
--- OUTSIDE RECORDS SUMMARY | ~2020-03-25 | XMS | Encounter Summary ---
Demographics + + + | Address | [address] | | | [place] [address] | + + + | Home Phone | | + + + | Preferred Language | Unknown | + + + | Marital Status | Single | + + + | Moravian Affiliation | CHR | + + + | Race | White | + + + | Ethnic Group | Not or | + + + Author + + + | Author | [facility] | + + + | Organization | [facility] | + + + | Address | Unknown | + + + | Phone | Unavailable | + + + Support + + +---------+ + | Name | Relationship | Address | Phone | + + +---------+ + | Thalia Armani | ECON | Unknown | | + + +---------+ + Care Team Providers + +------+ + | Care Engineering Illustrator Name | Role | Phone | + +------+ + | Meaghan Zhong MD | PCP | | + +------+ + Encounter Details +--------+---------+ + + + | Date | Type | Department | Care Team | Description | +--------+---------+ + + + | 09/15/ | Office | Preoperative | 1, [facility] Infant Toddler Teacher [address] | Other Complication | | 2006 | Visit | Medicine Clinic at | [facility] [address] | of Colostomy or | | | | [facility] 4th Floor [address] | [place] [address] | Enterostomy; Crohns | | | | [address] | | Disease (HCC); Other | | | | Mailcode: CH4S | | Specified | | | | [facility] | | Pre-Operative | | | | and Healing, | | Examination; | | | | Building 1,4th Floor | | Hemorrhagic Disorder | | | | [place], [place] | | due to Intrinsic | | | | [address] | | Circulating | | | | [phone] | | Anticoagulants | +--------+---------+ + + [...] | + + + + + | [facility] DEPARTMENT OF | [address] | [place] [address] | | | PATHOLOGY | [address] | | | + + + + + | [place] DEPARTMENT OF | [address] | [place] [address] | | | PATHOLOGY | [address] [...] | + + + + + | [facility] DEPARTMENT OF | [address] | [place] [address] | | | PATHOLOGY | [address] | | | + + + + + | [facility] DEPARTMENT | [address] | [place] [address] | | | PATHOLOGY | [address] [...] | + + + + + | [facility] | [address] | [place] [address] | | | PATHOLOGY | [address] | | | + + + + + | [facility] | [address] | [place] [address] | | | PATHOLOGY | [address] [...] DEPARTMENT OF | [address] | [place] [address] | | | PATHOLOGY | [address] | | | + + + + + | [facility] DEPARTMENT OF | [address] | [place] [address] | | | PATHOLOGY | [address] [...] Performed At | + + + | [id number] Estimated GFR > 60 mL/min/1.73 sq m if non- | [facility] | | [id number] Estimated GFR > 60 mL/min/1.73 sq m [...] | + + + + + | [facility] | [address] | [place] [address] | | | PATHOLOGY | [address] | | | + + + + + | [facility] | [address] | [place] [address] | | | PATHOLOGY | [address] [...] + + + + | PRODUCT | [id number] | | [facility] | | | UNIT [...] DEPARTMENT OF | [address] | [place] [address] | | | PATHOLOGY | [address] | | | + + + + + | [facility] | [address] | [facility] [place] [address] | | | PATHOLOGY | [address] [...]
--- OUTSIDE RECORDS SUMMARY | ~2020-03-25 | XMS | Encounter Summary ---
Demographics + + + | Address | [address] | | | [place] [address] | + + + | Home Phone | | + + + | Preferred Language | Unknown | + + + | Marital Status | Single | + + + | Oriental Orthodox Affiliation | 1013 | + + + | Race | Unknown | + + + | Ethnic Group | Unknown | + + + Author + + + | Author | [facility] | | | and [place] | + + + | Organization | [facility] | | | and [place] | [...] Team Providers + +------+ + | Care Steam Plant Operator Name | Role | Phone | + +------+ + | No, Physician | PCP | Unavailable | + +------+ + Encounter Details +--------+ + + + + | Date | Type | Department | Care Team | Description | +--------+ + + + + | 08/14/ | Hospital | [facility] | Emily Green, | | | 2013 | Encounter | [facility] | DO [address] [place] | | | | | MEDICAL CLIN[facility] [address] | [facility] [place] [address] | | | | | [address] [place], | [phone] | | | | | [place] [address] | | | | | | [phone] | | | +--------+ + + + [...]
--- OUTSIDE RECORDS SUMMARY | ~2020-03-25 | XMS | Encounter Summary ---
Demographics + + + | Address | [address] | | | [place] [address] | + + + | Home Phone [...] Team Providers + +------+ + | Care Repack Room Worker Name | Role | Phone | + +------+ + | Meaghan Zhong MD | PCP | | + +------+ + Reason for Visit +--------+ + | Reason | Comments | +--------+ + | Other | Pt Dismissed from [facility] | +--------+ + Encounter Details +--------+ + + + + | Date | Type | Department | Care Team | Description | +--------+ + + + + | 06/19/ | Telephone | Digestive Health | [address], | Other (Pt Dismissed | | 2017 | | Center at [address] | MD | from [facility]) | | | | [address] | | | | | | Mailcode: Center | | | | | | for Health and | | | | | | [facility], Building 2 | | | | | | [place], [place] | | | | | | [address] | | | | | | [phone] | | | +--------+ + + + [...]
--- OUTSIDE RECORDS SUMMARY | ~2020-03-25 | XMS | Encounter Summary ---
Demographics + + + | Address | [address] | | | [place] [address] | + + + | Home Phone | | + + + | Preferred Language | Unknown | + + + | Marital Status | Single | + + + | Mosque Affiliation | CHR | + + + | Race | White | + + + | Ethnic Group | Not or | + + + Author + + + | Author | [facility] | + + + | Organization | [facility] | + + + | Address | Unknown | + + + | Phone | Unavailable | + + + Support + + +---------+ + | Name | Relationship | Address | Phone | + + +---------+ + | Thalia Armani | ECON | Unknown | | + + +---------+ + Care Team Providers + +------+ + | Care Loading Machine Operator Helper Name | Role | Phone [...] | | 2014 | | Center at [facility] [address] | Gastroenterology | Gastroenterology | | | | [address] | | | | | | Mailcode: Center | | | | | | [facility] and | | | | | | [facility] 2 | | | | | | [place], [place] | | | | | | [address] | | | | | | [phone] | | | +--------+ + + + [...]
--- OUTSIDE RECORDS SUMMARY | ~2020-03-25 | XMS | Encounter Summary ---
Demographics + + + | Address | [address] | | | [place] [address] | + + + | Home Phone [...] Team Providers + +------+ + | Care Drainman Name | Role | Phone | + +------+ + | Meaghan Zhong MD | PCP | | + +------+ + Reason for Visit + + + | Reason | Comments | + + + | Suicidal | | + + + Encounter Details +--------+ + + + + | Date | Type | Department | Care Team | Description | +--------+ + + + + | 12/29/ | Telephone | Digestive Health | [address], | Suicidal | | 2017 | | Center at [facility] [address] | | | | | | [address] | | | | | | Mailcode: Center | | | | | | for Health and | | | | | | Healing, Building 2 | | | | | | [place], [place] | | | | | | [address] | | | | | | [phone] | | | +--------+ + + + [...]
--- OUTSIDE RECORDS SUMMARY | ~2020-03-25 | XMS | Encounter Summary ---
Demographics + + + | Address | [address] | | | [place] [address] | + + + | Home Phone | | + + + | Preferred Language | Unknown | + + + | Marital Status | Single | + + + | Yarsani Affiliation | 1013 | + + + | Race | Unknown | + + + | Ethnic Group | Unknown | + + + Author + + + | Author | [facility] | | | and [place] | + + + | Organization | [facility] | | | and [place] [...] Team Providers + +------+ + | Care Pearl Diver Name | Role | Phone | + +------+ + PCP | Unavailable | + +------+ + Encounter Details +--------+ + + + + | Date | Type | Department | Care Team | Description | +--------+ + + + + | 10/16/ | Hospital | [facility] | Meaghan Zhong | | | 2009 | Encounter | HOSPITAL BUSINESS | MD [address] | | | | | OFFICE [address] | [address] [facility], | | | | | [address] [place], [place] | [place] [address] | | | | | [address] | [phone] | | | | | [phone] | | | +--------+ + + + [...]
--- OUTSIDE RECORDS SUMMARY | ~2020-03-25 | XMS | Encounter Summary ---
Demographics + + + | Address | [address] | | | [place] [address] | + + + | Home Phone [...] + + | Author | [facility] | + + + | Organization | [facility] | + + + | Address | Unknown | + + + | Phone | Unavailable | + + + Support + + +---------+ + | Name | Relationship | Address | Phone | + + +---------+ + | Thalia Armani | ECON | Unknown | | + + +---------+ + Care Team Providers + +------+ + | Care Atomic Fuel Assembler Name | Role | Phone | [...] | 2015 | on | Center at [facility] [address] | MD | (Multiple dates - | | | | [address] | | [address] | | | | Mailcode: [place] | | [place]) | | | | for Health and | | | | | | [facility], [place] [address] | | | | | | [place], [place] | | | | | | [address] | | | | | | [phone] | | | +--------+ + + + [...] + | [facility] | | | [phone] | | HOSPITAL | | | | + +---------+ + + | [facility] | | [place], [place] | [phone] | | HOSPITAL | | | | [...] + | [facility] | | | [phone] | | HOSPITAL | | | | + +---------+ + + | [facility] | | [place] | [phone] | | HOSPITAL | | | | [...] + + | [facility] | [address] | [place] [address] | [phone] | | HOSPITAL | [address] | | [...] + + | [facility] | [address] | [place] [address] | [phone] | | HOSPITAL | [address] | | [...] + + | [facility] | [address] | [place] [address] | [phone] | | HOSPITAL | [address] | | [...] + + | [facility] | [address] | [place] [address] | [phone] | | HOSPITAL | [address] | | [...] + + | [facility] | [address] | [place] [address] | [phone] | | HOSPITAL | [address] | | [...] + + | [facility] | [address] | [place] [address] | [phone] | | HOSPITAL | [address] | | [...] + + | [facility] | [address] | [place] [address] | [phone] | | HOSPITAL | [address] | | [...] + + | [facility] | [address] | [place] [address] | [phone] | | HOSPITAL | [address] | | [...] | [address] | [place] [address] | [phone] | | HOSPITAL | [address] | | [...] + + | [facility] | [address] | [place] [address] | [phone] | | HOSPITAL | [address] | | | + + + + + MAGNESIUM, PLASMA (11/03/2014 4:40 PM PST) + +---------+ + + + | Component | Value | Ref Range | Performed | Pathologist | | | | | At | Signature | + +---------+ + + + | MAGNESIUM,P | 1.7 (A) | 1.8 - 2.4 mg/dL | [facility] | | | [facility] | | | [...] + + | [facility] | [address] | [place] [address] | [phone] | | HOSPITAL | [address] | | [...] + + | [facility] | [address] | [place] [address] | [phone] | | HOSPITAL | [address] | | [...] | [address] | [place] [address] | [phone] | | HOSPITAL | [address] | | [...] + + | [facility] | [address] | [place] [address] | [phone] | | HOSPITAL | [address] | | [...] | [address] | [place] [address] | [phone] | | HOSPITAL | [address] | | [...] + + | [facility] | [address] | [place] [address] | [phone] | | HOSPITAL | [address] | | [...] + + | [facility] | [address] | [place] [address] | [phone] | | HOSPITAL | [address] | | [...] + + | [facility] | [address] | [place] [address] | [phone] | | HOSPITAL | [address] | | [...] + + | [facility] | [address] | [place] [address] | [phone] | | HOSPITAL | [address] | | [...] + + | [facility] | [address] | [place] [address] | [phone] | | HOSPITAL | [address] | | [...] + + | [facility] | [address] | [place] [address] | [phone] | | HOSPITAL | [address] | | [...] + + | [facility] | [address] | [place] [address] | [phone] | | HOSPITAL | [address] | | [...] + + | [facility] | [address] | [place] [address] | [phone] | | HOSPITAL | [address] | | [...] + + | [facility] | [address] | [place] [address] | [phone] | | HOSPITAL | [address] | | [...] + + | [facility] | [address] | [place] [address] | [phone] | | HOSPITAL | [address] | | [...] + + | [facility] | [address] | [place] [address] | [phone] | | HOSPITAL | [address] | | | + + + + + documented in this encounter Visit Diagnoses Not on filedocumented in this encounter"
--- OUTSIDE RECORDS SUMMARY | ~2020-03-25 | XMS | Encounter Summary ---
Demographics + + + | Address | [address] | | | [place] [address] | + + + | Home Phone | | + + + | Preferred Language | Unknown | + + + | Marital Status | Single | + + + | Sikh Affiliation | 1013 | + + + | Race | Unknown | + + + | Ethnic Group | Unknown | + + + Author + + + | Author | [facility] | | | and [place] | + + + | Organization | [facility] | | [...] Team Providers + +------+ + | Care Practicing Dermatologist Name | Role | Phone | + +------+ + | Emily Green DO | PCP | | + +------+ + Encounter Details +--------+ + + + + | Date | Type | Department | Care Team | Description | +--------+ + + + + | 04/28/ | Documentati | [facility] | Carmelo Patterson MD | | | 2016 | on | GASTROENTEROLOGY | [address] | | | | | [address] [facility] | [place], [place] | | | | | [address] | [address] | | | | | [address] | [phone] | | | | | [phone] | | | +--------+ + + + [...] + documented as of this encounter Progress Saritha Baez RN - 04/28/2016 2:43 PM PDTResults letter mailed to patient and PCP; reca ll for repeat colon in 2 years for dysplasia surveillance and Crohn's. documented in this encounter Plan of Treatment Not on filedocumented as of this encounter Visit Diagnoses Not on filedocumented in this encounter"
--- OUTSIDE RECORDS SUMMARY | ~2020-03-25 | XMS | Encounter Summary ---
Demographics + + + | Address | [address] | | | [place] [address] | + + + | Home Phone | | + + + | Preferred Language | Unknown | + + + | Marital Status | Single | + + + | Church Affiliation | CHR | + + + | Race | White | + + + | Ethnic Group | Not or | + + + Author + + + | Author | [facility] | + + + | Organization | [facility] | + + + | Address | Unknown | + + + | Phone | Unavailable | + + + Support + + +---------+ + | Name | Relationship | Address | Phone | + + +---------+ + | Thalia Armani | ECON | Unknown | | + + +---------+ + Care Team Providers + +------+ + | Care Licensing And Registration Director Name | Role | Phone | [...] 2016 | | Center at [facility] [address] | | | | | | [address] | | | | | | Mailcode: Center | | | | | | for Health and | | | | | | Healing, Building [address] | | | | | | [place], [place] | | | | | | [address] | | | | | | [phone] | | | +--------+ + + + [...]
--- OUTSIDE RECORDS SUMMARY | ~2020-03-25 | XMS | Encounter Summary ---
Demographics + + + | Address | [address] | | | [place] [address] | + + + | Home Phone | | + + + | Preferred Language | Unknown | + + + | Marital Status | Single | + + + | Buddhism Affiliation | CHR | + + + [...] Team Providers + +------+ + | Care Records Management Analyst Name | Role | Phone | + +------+ + | Meaghan Zhong MD | PCP | | + +------+ + Reason for Visit + + + | Reason | Comments | + + + | Radiology Order | | + + + Encounter Details +--------+ + + + + | Date | Type | Department | Care Team | Description | +--------+ + + + + | 04/18/ | General I Farmworker | Digestive Health | [address], | Crohn's disease of | | 2015 | | [employer] [facility] [address] | MD | large intestine with | | | | [address] | | other complication | | | | Mailcode: Center | | ([facility]) (Primary Dx) | | | | for Health and | | | | | | [facility], [facility] [address] | | | | | | [place], [place] | | | | | | [address] | | | | | | [phone] | | | +--------+ + + + [...] Diagnosis | + + | Crohn's disease of large intestine with other complication (HCC) - Primary | + + documented in this encounter"
--- OUTSIDE RECORDS SUMMARY | ~2020-03-25 | XMS | Encounter Summary ---
Demographics + + + | Address | [address] | | | [place] [address] | + + + | Home Phone [...] + | Organization | [facility] | | | and [...] Team Providers + +------+ + | Care Palm And Back Forger Name | Role | Phone | + [...] | | | | | Crohn's | [address] | [place], | | | | | disease, | [address] [place] | [place] [address] | | | | | unspecified | [place], [place] | Phone: | | | | | complication | [address] | [phone] | | | | | Other | Phone: | Fax: | | | | | opiates and | [phone] | [phone] | | | | | related | Fax: | | | | | | narcotics | [phone] | | | | | | causing | | | | | | | adverse | | | | | | | effect in | | | | | | | therapeutic | | | | | | | use | | | | | | | Procedures | | | | | | | [place] | | | | | | | ESOPHAGOGAST | | | | | | | RODUODENOSCO | | | | | | | PY TRANSORAL | | | | | | | DIAGNOSTIC | | | | | | | [place] EDG | | | | | | | TRANSORAL | | | | | | | BIOPSY | | | | | | | SINGLE/MULTI | | | | | | | PLE [place] | | | | | | | COLONOSCOPY, | | | | | | | DIAGNOSTIC | | | | | | | [place] | | | | | | | COLONOSCOPY, | | | | | | | BIOPSY [place] | | | | | | | [...] | | | | Procedures | [place] [address] | [address] | | | | | evaluate and | Phone: | Phone: | | | | | treat | [phone] | [phone] | | | | | | Fax: | Fax: | | | | | | [phone] | [phone] | +--------+--------+ + + + + Encounter Details +--------+---------+ + + + | Date | Type | Department | Care Team | Description | +--------+---------+ + + + | 03/22/ | Office | [facility] | Reg Zurita, | Abdominal pain | | 2013 | Visit | GASTROENTEROLOGY | [address] | (Primary Dx); | | | | [address] [place] | [address], | Crohn's disease, | | | | [address], [place] | [place] [address] | unspecified | | | | [address] | [phone] | complication (HCC) | | | | [phone] | | | +--------+---------+ + + + [...] + documented in this encounter Progress Notes Reg Zurita MD - 03/22/2014 5:01 PM PDTFormatting of [...] Date Crohn's disease (HCC) hospitalized 11/03/12-11/07/12 at [facility] for crohn's flare Asthma Hypothyroidism Hx of [...] Reg Garcia MD - 03/22/2014 12:00 AM PDT GASTROENTEROLOGY [address] [facility] [address] [place] [address] FAX: [phone] OFFICE VISIT HISTORY OF PRESENT ILLNESS: The patient referred from his doctors in [facility]. For past 3 weeks the patient has been [...] Colonoscopy is scheduled in about 3 weeks. eRg Zurita M.D. ADONAY / ANN MARIE JOB #: [id number] signed by Reg Zurita MD at 03/23/2014 7:40 AM PDTdocume nted in this encounter Miscellaneous Notes Addendum Note - Thania Vieira RN - 03/22/2014 5:13 PM PDT Addended by: THANIA VIEIRA on: 03/22/2014 17:13 Modules accepted: Orders iscellaneprecious [place] - 03/22/2014 12:00 AM PDT 7: 33 AM PDTdocumented in this encounter Plan of [...]
--- OUTSIDE RECORDS SUMMARY | ~2020-03-25 | XMS | Encounter Summary ---
Demographics + + + | Address | [address] | | | [place] [address] | + + + | Home Phone | | + + + | Preferred Language | Unknown | + + + | Marital Status | Single | + + + | Restoration Affiliation | CHR | + + + [...] Team Providers + +------+ + | Care Clinical Research Technician Name | Role | Phone | [...] | | 2014 | | Center at [facility] [address] | MD | Authorization | | | | [address] | | (Benji HAIDER approval | | | | Mailcode: Center | | - [facility]) | | | | for Health and | | | | | | [facility], [facility] 2 | | | | | | [place], [place] | | | | | | [address] | | | | | | [phone] | | | +--------+ + + + [...]
--- OUTSIDE RECORDS SUMMARY | ~2020-03-25 | XMS | Encounter Summary ---
Demographics + + + | Address | [address] | | | [place] [address] | + + + | Home Phone | | + + + | Preferred Language | Unknown | + + + | Marital Status | Single | + + + | Samaritan Affiliation | CHR | + + + | Race | White | + + + | Ethnic Group | Not or | + + + Author + + + | Author | [facility] | + + + | Organization | [facility] | + + + | Address | Unknown | + + + | Phone | Unavailable | + + + Support + + +---------+ + | Name | Relationship | Address | Phone | + + +---------+ + | Thalia Armani | ECON | Unknown | | + + +---------+ + Care Team Providers + +------+ + | Care Nnps Name | Role | Phone | + [...] Records | | 2015 | on | [place] [facility] [address] | MD | Review | | | | [address] | | | | | | Mailcode: [place] | | | | | | [facility] and | | | | | | [facility], [facility] 2 | | | | | | [place], [place] | | | | | | [address] | | | | | | [phone] | | | +--------+ + + + [...]
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
--- OUTSIDE RECORDS SUMMARY | ~2020-03-25 | XMS | Encounter Summary ---
Demographics + + + | Address | [address] | | | [place] [address] | + + + | Home Phone | | + + + | Preferred Language | Unknown | + + + | Marital Status | Single | + + + | Cheondoism Affiliation | 1013 | + + + | Race | Unknown | + + + | Ethnic Group | Unknown | + + + Author + + + | Author | [facility] | | | and [place] | + + + | Organization | [facility] | | | and [...] Team Providers + +------+ + | Care End Trimmer Name | Role | Phone | + +------+ + | No, Physician | PCP | Unavailable | + +------+ + Encounter Details +--------+ + + + + | Date | Type | Department | Care Team | Description | +--------+ + + + + | 01/05/ | Abstract | [facility] [place] | Reg [place], | | | 2012 | | GASTROENTEROLOGY | [address] | | | | | [address] [place] | [address] [place], | | | | | [address], [place] | [place] [address] | | | | | [address] | [phone] | | | | | [phone] | | | +--------+ + + + [...]
--- OUTSIDE RECORDS SUMMARY | ~2020-03-25 | XMS | Encounter Summary ---
Demographics + + + | Address | [address] | | | [place] [address] | + + + | Home Phone [...] Team Providers + +------+ + | Care Souvenir And Novelty Maker Name | Role | Phone | + [...] | | 2017 | | Center at [facility] [address] | | | | | | [address] | | | | | | Mailcode: Center | | | | | | for Health and | | | | | | Healing, [address] | | | | | | [place], [place] | | | | | | [address] | | | | | | [phone] | | | +--------+ + + + [...]
--- OUTSIDE RECORDS SUMMARY | ~2020-03-25 | XMS | Encounter Summary ---
Demographics + + + | Address | [address] | | | [place] [address] | + + + | Home Phone [...] | [facility] [...] Team Providers + +------+ + | Care Metal Casket Maker Name | Role | Phone | + +------+ + | Emily Green DO | PCP | | + +------+ + Encounter Details +--------+ + + + + | Date | Type | Department | Care Team | Description | +--------+ + + + + | 02/17/ | [facility] | [facility] | Shirley Frankel, | | | 2016 | Encounter | [facility] | IT APPLICATIONS ANALYST [address] | | | | | [facility] [address] | [address] [facility] [place] | | | | | [facility], | [address] | | | | | [place] [address] | | | | | | [phone] | | | +--------+ + + + [...]
--- OUTSIDE RECORDS SUMMARY | ~2020-03-25 | XMS | Encounter Summary ---
Demographics + + + | Address | [address] | | | [place] [address] | + + + | Home Phone | | + + + | Preferred Language | Unknown | + + + | Marital Status | Single | + + + | Restorationist Affiliation | 1013 | + + + | Race | Unknown | + + + | Ethnic Group | Unknown | + + + Author + + + | Author | [facility] | | | and [place] | + + + | Organization | [facility] | [...] Team Providers + +------+ + | Care Cabinet Worker Name | Role | Phone | [...] | | | | [address] [facility] | [place], [place] | | | | | [address] | [address] | | | | | [address] | [phone] | | | | | [phone] | | | +--------+ + + + [...] +--------+ + + + | EXTERNAL LAB: BUN | Routin | 12/11/2015 | | Results [...] +--------+ + + + | EXTERNAL LAB: JOLENE | Routin | 12/11/2015 | | Results for this | | | e | | | procedure are in the | | | | | | results section. | + +--------+ + + + | EXTERNAL LAB: HOMAR | Routin | 12/11/2015 | | Results [...] | + + + + + | [facility] | [address] | [place] | [phone] | | [facility] | | [address] | | | - LABORATORY | | [...] Agency Comment | + + | [facility] | + + + +---------+ + [...] Agency Comment | + + | [facility] | + + + +---------+ + [...] Agency Comment | + + | [facility] | + + + +---------+ + [...] Agency Comment | + + | [facility] | + + + +---------+ + [...] Agency Comment | + + | [facility] | + + + +---------+ + [...] Agency Comment | + + | [facility] | + + + +---------+ + + [...] Agency Comment | + + | [facility] | + + + +---------+ + [...] Agency Comment | + + | [facility] | + + + +---------+ + [...] Agency Comment | + + | [facility] | + + + +---------+ + [...] Agency Comment | + + | [facility] | + + + +---------+ + [...] Agency Comment | + + | [facility] | + + + +---------+ + [...] Resulting Agency Comment | + + | [facility] | + + + +---------+ + + | Performing | Address | City/State/Zipcode | Phone Number | | Organization | | | | + +---------+ + + | EXTERNAL LAB | | | | + +---------+ + + documented in this encounter Visit Diagnoses Not on filedocumented in this encounter"
--- OUTSIDE RECORDS SUMMARY | ~2020-03-25 | XMS | Encounter Summary ---
Demographics + + + | Address | [address] | | | [place] [address] | + + + | Home Phone [...] + + + | Author | [facility] | | | and [place] | + + + | Organization | [facility] [...] Team Providers + +------+ + | Care Station Examiner Name | Role | Phone | + +------+ + | No, Physician | PCP | Unavailable | + +------+ + Reason for Visit + +--------+ + | Reason | Onset | Comments | | | Date | | + +--------+ + | Referral | 08/23/ | Patient needs to call if he wants to schedule | | (PreAuthorization) | 2013 | | + +--------+ + Encounter Details +--------+ + + + + | Date | Type | Department | Care Team | Description | +--------+ + + + + | 08/23/ | Telephone | [facility] | Carmleo Patterson MD | Referral | | 2013 | | GASTROENTEROLOGY | [address] | (PreAuthorization) | | | | [address] [facility] | [place], [place] | (Patient needs to | | | | [address] [place], [place] | [address] | call if he wants to | | | | [address] | [phone] | schedule) | | | | [phone] | | | +--------+ + + + [...] this encounter Miscellaneous Notes Telephone Encounter - Christopher Sandra Jimenez - 08/23/2014 8:44 AM PSTCalled and left voicemail for construction project coordinator Martha at Dr. Green's office. Advised we did receive referral on 07/29 04/10 however this patient has already been seen in the office and has failed/cancelled proce dures. Advised that our last contact with the patient the patient said he would call our off ice if he wants to reschedule. We will not be contacting patient to schedule for this reason . Records have been sent to scan. documented in this encounter Plan of Treatment Not on filedocumented as of this encounter Visit Diagnoses Not on filedocumented in this encounter"
--- OUTSIDE RECORDS SUMMARY | ~2020-03-25 | XMS | Encounter Summary ---
Demographics + + + | Address | [address] | | | [place] [address] | + + + | Home Phone | | + + + | Preferred Language | Unknown | + + + | Marital Status | Single | + + + | Sabianist Affiliation | CHR | + + + | Race | White | + + + | Ethnic Group | Not or | + + + Author + + + | Author | [facility] | + + + | Organization | [facility] | + + + | Address | Unknown | + + + | Phone | Unavailable | + + + Support + + +---------+ + | Name | Relationship | Address | Phone | + + +---------+ + | Thalia Armani | ECON | Unknown | | + + +---------+ + Care Team Providers + +------+ + | Care Board Setter Name | Role | Phone | + +------+ + | Meaghan Zhong MD | PCP | | + +------+ + Encounter Details +--------+ + + + + | Date | Type | Department | Care Team | Description | +--------+ + + + + | 12/27/ | Telephone | Digestive Health | Bhargav Jamison MD | | | 2017 | | [place] at [facility] [address] | [address] | | | | | [address] | [address] [facility], | | | | | Mailcode: [place] | [place] [address] | | | | | Health and | [phone] | | | | | [facility], [facility] [address] | | | | | | [place], [place] | | | | | | [address] | | | | | | [phone] | | | +--------+ + + + [...]
--- OUTSIDE RECORDS SUMMARY | ~2020-03-25 | XMS | Clinical Summary ---
Demographics + + + | Address | [address] | | | [place] [address] | + + + | Home Phone [...] Phone | + + +---------+ + | Thaila Armani | ECON | Unknown | | + + +---------+ + Care Team Providers + +------+ + | Care Blade Sharpener Name | Role | Phone | + +------+ + | Meaghan Zhong MD | PCP | | + +------+ + Source Comments PAT is fully live on both [facility] and [facility] In[facility] Allergies + + + + [...] | | | + +--------+ +--------+-------+---------+--------+ | MAINTENANCE PLUMBER MEDICAID | MAINTENANCE PLUMBER | xxxxxxxx | | | | Medica [...] | | christy/Livan | | 1971 | [address] | [place] [address] | | | david | | | 0 (Home) | | + +--------+ +--------+ + +
--- OUTSIDE RECORDS SUMMARY | ~2020-03-25 | XMS | Encounter Summary ---
Demographics + + + | Address | [address] | | | [place] [address] | + + + | Home Phone [...] Team Providers + +------+ + | Care Body Designer Name | Role | Phone | + [...] Digestive Health | [address], | Other | | 2015 | | [place] at [facility] [address] | | | | | | [address] [address] | | | | | | Mailcode: Center | | | | | | for Health and | | | | | | [facility], [facility] 2 | | | | | | [place], [place] | | | | | | [address] | | | | | | [phone] | | | +--------+ + + + [...]
--- OUTSIDE RECORDS SUMMARY | ~2020-03-25 | XMS | Encounter Summary ---
Demographics + + + | Address | [address] | | | [place] [address] | + + + | Home Phone | | + + + | Preferred Language | Unknown | + + + | Marital Status | Single | + + + | Restorationism Affiliation | 1013 | + + + | Race | Unknown | + + + | Ethnic Group | Unknown | + + + Author + + + | Author | [facility] | | | and [place] | + + + | Organization | [facility] | | | and [...] Team Providers + +------+ + | Care Pants Busheler Name | Role | Phone | + [...] [place] | | | | | | [address] | (Fax) | | | | | [phone] | | | +--------+ + + + [...]
--- OUTSIDE RECORDS SUMMARY | ~2020-03-25 | XMS | Encounter Summary ---
Demographics + + + | Address | [address] | | | [place] [address] | + + + | Home Phone | | + + + | Preferred Language | Unknown | + + + | Marital Status | Single | + + + | Jainism Affiliation | CHR | + + + [...] Team Providers + +------+ + | Care Senior Environmental Engineer Name | Role | Phone | [...] Abdominal pain | | 2017 | | [place] [address] | MD | | | | | [address] | | | | | | Mailcode: [place] | | | | | | [facility] Health and | | | | | | [facility], [facility] | | | | | | [place], [place] | | | | | | [address] | | | | | | [phone] | | | +--------+ + + + [...]
--- OUTSIDE RECORDS SUMMARY | ~2020-03-25 | XMS | Encounter Summary ---
Demographics + + + | Address | [address] | | | [place] [address] | + + + | Home Phone [...] | Organization | [facility] | | [...] Team Providers + +------+ + | Care Natural Resource Specialist Name | Role | Phone | [...] [facility], | | | | | [facility], [place] | [place] [address] | | | | | [address] | [phone] | | | | | [phone] | | | +--------+ + + + [...]
--- OUTSIDE RECORDS SUMMARY | ~2020-03-25 | XMS | Encounter Summary ---
Demographics + + + | Address | [address] | | | [place] [address] | + + + | Home Phone [...] + +------+ + | Care Director Of Rooms Name | Role | Phone | + +------+ + | Meaghan Zhong MD | PCP | | + +------+ + Encounter Details +--------+ + + + + | Date | Type | Department | Care Team | Description | +--------+ + + + + | 04/28/ | Telephone | Digestive Health | [address], | | | 2016 | | [place] at [facility] [address] | | | | | | [address] | | | | | | Mailcode: [place] | | | | | | for Health and | | | | | | [facility], Building [address] | | | | | | [place], [place] | | | | | | [address] | | | | | | [phone] | | | +--------+ + + + [...]
--- OUTSIDE RECORDS SUMMARY | ~2020-03-25 | XMS | Encounter Summary ---
Demographics + + + | Address | [address] | | | [place] [address] | + + + | Home Phone [...] + + + | Author | [facility] | | | and [place] | + + + | Organization | [facility] | | [...] Team Providers + +------+ + | Care Correction Officer Name | Role | Phone | [...] | | | [address] | [facility] [facility], | | | | | [facility], [place] | [place] [address] | | | | | [address] | [phone] | | | | | [phone] | | | +--------+ + + + [...]
--- OUTSIDE RECORDS SUMMARY | ~2020-03-25 | XMS | Encounter Summary ---
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 ANESTHESIA PREANESTHESIA EVALUATION Rachid Glez 43 y.o. male 1970 [id number] Scheduled procedure Medical history, anesthesia, medications, allergy histories reviewed. ECG reviewed. Labs reviewed. ROS / Med History Ane No anesthesia complications. Patient Active Problem List: HYPOTHYROIDISM ASTHMA CROHN'S DISEASE ABDOMINAL PAIN Preventative health care GERD (gastroesophageal reflux disease) Depression History History Comments Crohn's disease - hospitalized 11/03/12-11/07/12 at [facility] Asthma Hypothyroidism Hx of head injury Allergy GERD (gastroesophageal reflux disease) Depression Transaminitis improving H/O medication noncompliance Surgical History CHOLECYSTECTOMY ELBOW SURGERY, RIGHT ABDOMINAL HERNIA REPAIR x4 EGD AND COLONOSCOPY EGD AND COLONOSCOPY Normal colonoscopy. Hiatal hernia, esophagitis, duodenitis. COLONOSCOPY UPPER GASTROINTESTINAL ENDOSCOPY FIBULA FRACTURE SURGERY right EGD AND COLONOSCOPY EGD / COLONOSCOPY performed by Carmelo Patterson MD at [facility] Substance History Smoking Status: Former Smoker - 0 pack years Smokeless Tobacco Status: Current User Alcohol use: No Drug use: No . Pulm (+) asthma (on prednisone at times, inhalers). Psych (+) depression (onRx). GI/Hep (+) reflux/GERD (on Rx). Endo (+) hypothyroidism (on Rx). Physical Exam Airway MP II, TM >3 FB, Mouth opening >2 FB. Neck: full ROM, extends >30 degrees. Dental Dillon ssly normal except where noted below.; (-) dentures-upper. CV cardiovascular normal Rhythm regular. Rate Normal. (-) murmur. Pulm Clear to auscultation bilaterally. Neuro Grossly normal. Anesthesia Plan ASA 2 Type: Total IV anesthesia. Induction: Intravenous. Potential problems: None anticipated. Monitors: Standard ASA monitors. Consent statement:Anesthetic plan, alternatives, risks and benefits discussed with patient. Risks discussed included (but were not limited to): sore throat, pain, disability, perioper ative CV events, infection, muscle aches, voice injury, drug reaction, heart problems, nause a, respiratory events, . PARQ. Electronically Signed by: Roque Watson MD ESi date/time: 06/21/2014 16:29 documented in thi s encounter Plan of Treatment Not on filedocumented as of this encounter Visit Diagnoses Not on filedocumented in this encounter"
--- OUTSIDE RECORDS SUMMARY | ~2020-03-25 | XMS | Encounter Summary ---
Demographics + + + | Address | [address] | | | [place] [address] | + + + | Home Phone [...] Author + + + | Author | [facility] | + + + | Organization | [facility] | + + + | Address | Unknown | + + + | Phone | Unavailable | + + + Support + + +---------+ + | Name | Relationship | Address | Phone | + + +---------+ + | Thalia Armani | ECON | Unknown | | + + +---------+ + Care Team Providers + +------+ + | Care It Data Architect Name | Role | Phone | [...] | | 2014 | | Center at [facility] [address] | MD | Authorization | | | | [address] | | (Benji HAIDER approval | | | | Mailcode: Center | | - [facility]) | | | | for Health and | | | | | | [facility], [facility] 2 | | | | | | [place], [place] | | | | | | [address] | | | | | | [phone] | | | +--------+ + + + [...]
--- OUTSIDE RECORDS SUMMARY | ~2020-03-25 | XMS | Encounter Summary ---
Demographics + + + | Address | [address] | | | [place] [address] | + + + | Home Phone | | + + + | Preferred Language | Unknown | + + + | Marital Status | Single | + + + | Uatsdin Affiliation | 1013 | + + + | Race | Unknown | + + + | Ethnic Group | Unknown | + + + Author + + + | Author | [facility] | | | and [place] | + + + | Organization | [facility] | | | and [...] Team Providers + +------+ + | Care Tailer In Name | Role | Phone | + [...] | [address], [place] | [place] [address] | | | | | [address] | [phone] | | | | | [phone] | | | +--------+ + + + [...]
--- OUTSIDE RECORDS SUMMARY | ~2020-03-25 | XMS | Encounter Summary ---
Demographics + + + | Address | [address] | | | [place] [address] | + + + | Home Phone [...] Organization | [facility] | | | and [...] Team Providers + +------+ + | Care Pulverizer Operator Name | Role | Phone | + +------+ + | No, Physician | PCP | Unavailable | + +------+ + Encounter Details +--------+ + + + + | Date | Type | Department | Care Team | Description | +--------+ + + + + | 11/21/ | Hospital | [facility] | Emily Green, | | | 2016 | Encounter | [facility] | DO [address] | | | | | MEDICAL CLIN[facility] [address] | [facility] [place] [address] | | | | | [address] [place], | [phone] | | | | | [place] [address] | | | | | | [phone] | | | +--------+ + + + [...]
--- OUTSIDE RECORDS SUMMARY | ~2020-03-25 | XMS | Encounter Summary ---
Demographics + + + | Address | [address] | | | [place] [address] | + + + | Home Phone [...] Team Providers + +------+ + | Care School Transportation Director Name | Role | Phone | [...] from Patient | | 2016 | | [place] at [facility] [address] | MD | | | | | [address] | | | | | | Mailcode: [place] | | | | | | for Health and | | | | | | [facility], [facility] 2 | | | | | | [place], [place] | | | | | | [address] | | | | | | [phone] | | | +--------+ + + + [...]
--- OUTSIDE RECORDS SUMMARY | ~2020-03-25 | XMS | Encounter Summary ---
Demographics + + + | Address | [address] | | | [place] [address] | + + + | Home Phone [...] + + + | Author | [facility] | + + + | Organization | [facility] | + + + | Address | Unknown | + + + | Phone | Unavailable | + + + Support + + +---------+ + | Name | Relationship | Address | Phone | + + +---------+ + | Thalia Armani | ECON | Unknown | | + + +---------+ + Care Team Providers + +------+ + | Care Lock Tender Chief Operator Name | Role | Phone | [...] Medication Refill | | 2015 | | [place] [address] | | | | | | N[place]one | | | | | | Mailcode: [place] | | | | | | [facility] and | | | | | | [facility] 2 | | | | | | [place], [place] | | | | | | [address] | | | | | | [phone] | | | +--------+ + + + [...]
--- OUTSIDE RECORDS SUMMARY | ~2020-03-25 | XMS | Encounter Summary ---
Demographics + + + | Address | [address] | | | [place] [address] | + + + | Home Phone [...] Author + + + | Author | [facility] | + + + | Organization | [facility] | + + + | Address | Unknown | + + + | Phone | Unavailable | + + + Support + + +---------+ + | Name | Relationship | Address | Phone | + + +---------+ + | Thalia Armani | ECON | Unknown | | + + +---------+ + Care Team Providers + +------+ + | Care Manager Metrology Name | Role | Phone | + [...] Appointment Question | | 2016 | | [place] [facility] 5[address] | MD | | | | | N[place]one | | | | | | Mailcode: [place] | | | | | | [facility] and | | | | | | [facility], [facility] 2 | | | | | | [place], [place] | | | | | | [address] | | | | | | [phone] | | | +--------+ + + + [...]
--- OUTSIDE RECORDS SUMMARY | ~2020-03-25 | XMS | Encounter Summary ---
Demographics + + + | Address | [address] | | | [place] [address] | + + + | Home Phone [...] Organization | [facility] [place] | | | and [place] [...] Team Providers + +------+ + | Care Licensed Prosthetist Name | Role | Phone | [...] | | | | | | site ([facility]) | | | | | | | [[phone]] | | | | | | | Procedures | | | | | | | COLONOSCOPY | | | +--------+--------+ + + + + Encounter Details +--------+---------+ + + + | Date | Type | Department | Care Team | Description | +--------+---------+ + + + | 11/16/ | Surgery | [facility] | Carmelo Patterson MD | COLONOSCOPY | | 2015 | | MED CTR [facility] | [address] | | | | | [address] | [place] | | | | | [place] | [address] | | | | | [address] | [phone] | | | | | [phone] | | | +--------+---------+ + + + [...] the physician who did your procedure at [phone] if you have any questions or experience any of the following: ? Increasing abdominal pain, nausea, or vomiting. ? Chills and fever over 101F. ? New abdominal swelling or bloating. ? Signs of rectal bleeding (black or red stool. If you cannot get a hold of your physician, then call the [facility] [phone] . If necessary, report to the Emergency Department at [facility]. Quit smoking: If you smoke or [...] such as nuts, corn, popcorn a nd [place] vegetables. MEDICATIONS: For mild to moderate cramping [...] s and Colitis [employer] of [employer] 533.200.8407 www.ccfa.org National Digestive Diseases Information Clearinghouse (NDDIC) 687.551.5818 www.digestive .niddk.nih.gov Get Prompt Medical Attention if any of the following occur: Fever of 100.4F(38C) or higher, or as directed by your healthcare provider Abdominal pain that does not respond to usual measures Mucus, pus or blood in the stool (dark or bright red) Repeated vomiting Abdominal swelling and pain that does not go away after a few hours [phone] [employer] [address] [place] [address], [place] [address]. All righ ts reserved. This information is [...] encounter H&P Notes Carmelo Patterson MD - 11/16/2014 8:41 AM PSTPatient interviewed, history and physical, symp toms reviewed VS signs noted, no change from previous H&P or assessment and plan.Electronic ally signed by Carmelo Patterson MD at 11/16/2014 8:42 AM PSTCarmelo Patterson MD - 11/15/2014 8:27 AM PST PRE-ENDOSCOPY HISTORY AND PRE-SEDATION ASSESSMENT PATIENT NAME: Rachid Glez : 1970 TODAY'S DATE: 11/15/2014 PLANNED PROCEDURE: Colonoscopy PERTINENT HISTORY/INDICATION FOR PROCEDURE: Rachid Glez is a 44 y.o. male who is undergoing colonoscopy due to previous sub-optimal bowel preparation and to determine if ac tive inflammatory bowel disease is present. . PAST HISTORY: Past Medical History Diagnosis Date Crohn's disease (HCC) hospitalized 11/03/12-11/07/12 at [facility] for crohn's flare Asthma Hypothyroidism Hx of head injury Allergy GERD (gastroesophageal reflux disease) Depression Transaminitis 11/07/12 improving H/O medication noncompliance 11/07/12 Medical marijuana use Daily PAST SURGICAL HISTORY Past Surgical History Procedure Laterality Date Cholecystectomy Elbow surgery, right Abdominal hernia repair x4 Egd and colonoscopy 03/21/09 Egd and colonoscopy 10/23/10 Normal colonoscopy. Hiatal hernia, esophagitis, duodenitis. Colonoscopy Upper gastrointestinal endoscopy Fibula fracture surgery right Egd and colonoscopy 04/14/2014 EGD / COLONOSCOPY; Laterality: N/A; Surgeon: Carmelo Patterson MD; Location: [facility] PROC[facility]URE [facility] HOME MEDS: Scheduled Meds: Continuous Infusions: PRN Meds:. ALLERGIES Allergies Allergen Reactions Morphine Nausea And Vomiting shaking ASA CLASSIFICATION: Class 2 A normal healthy patient with mild systemic disease EXAMINATION: There were no vitals taken for this visit. General: Alert and oriented Throat: Normal Lungs: Clear Heart: Regular rate and rhythm with out significant murmur Abdomen: flat, normal bowel sounds. Soft, nontender 1. Available medical records have been reviewed. 2. Medication list reviewed. IMPRESSION: . Patient appropriate for procedure. PLAN: 1. Proceed with procedure as stated above with moderate sedation/analgesia 2. Procedure, indications, risks and alternatives explained to patient/family and they agre ed to proceed and consent was signed. 3. Patient will be reevaluated immediately (1-2 minutes) before sedation administration and approved for the plan as stated above. Electronically Signed by: Carmelo Patterson MD 11/15/2014 [facility] Portions of this chart may have been created with [employer] voice recognition software. Occasi onal wrong-word or sound-alike substitutions may have occurred due to the inherent trejo itations of voice recognition software. Please read the chart carefully and recognize, using context, where these substitutions have occurred documented in this enc ounter Plan of Treatment Not on filedocumented as of this encounter Procedures + +--------+ + + + | Procedure Name | Priori | Date/Time | Associated Diagnosis | Comments | | | ty | | | | + +--------+ + + + | PATHOLOGY - EXTERNAL | | 11/21/2014 | | | | SCAN | | 12:00 AM | | | | | | PST | | | + +--------+ + + + | COLONOSCOPY | | 11/16/2014 | Regional enteritis | | | | | 8:35 AM | of unspecified site | | | | | PST | ([facility]) Abdominal | | | | | | [...] + | PATHOLOGY - EXTERNAL | | 11/16/2014 | | | | SCAN | | 12:00 AM | | | | | | PST | | | + +--------+ + + + documented in this encounter Results COLONOSCOPY (11/16/2014 8:31 AM PST) + + | Specimen | + + | | + + + + -+ | Narrative | Performed At | + + -+ | | [facility] | | GastroenterologyPatient Name: Rachid Burkscedkim Date: | PROVATION | | 11/16/2014 8:31 AMMRN: [id number] #: [id number] of : | | | 1970Admit Type: AmbulatoryAge: 44[facility]Gender: MaleNote | | | Status: FinalizedAttending MD: Carmelo Patterson, [facility]cedure: | | | ColonoscopyIndications: Follow-up of Crohn's [...] the nurse | | | and the p 3 armament/ordnance ima technician in the pre-procedure area in the [...] Scope In: 8:50:16 AMScope Out: 9:09:[address] [facility]. | | | [facility], [address] [place] [address] | | | [phone] | | | - Continue present medications. [...] Out: 9:09:29 AM | | | [facility], [address] [facility] [place] | | | [address] | | + + -+ + +---------+ + + | Performing | Address | City/State/Zipcode | Phone Number | | Organization | | | | + +---------+ + + | [facility] [place] | | | | + +---------+ + + documented in this encounter Visit Diagnoses + + | Diagnosis | + + | Regional enteritis of unspecified site | + + | Abdominal pain, unspecified [...] 2 mg/mL | | | injection Starting Chelle 11/16/14 | | | at 0734, For [...] PST | | | | | Starting [facility] 11/16/14 at 0731, | | | | | | | Recovery/Phase I | | | | | | + +-------+ +---+---+---+ +---+---+ | | | +---+---+ + +-------+ +------+---+---+ | ondansetron (ZOFRAN) injection | Given | 11/16/19 | 4 mg | | | | PRN, Starting [facility] 11/16/14 at | | 15 8:44 | [...]
--- OUTSIDE RECORDS SUMMARY | ~2020-03-25 | XMS | Encounter Summary ---
Demographics + + + | Address | [address] | | | [place] [address] | + + + | Home Phone [...] + + + | Author | [facility] | + + + | Organization | [facility] | + + + | Address | Unknown | + + + | Phone | Unavailable | + + + Support + + +---------+ + | Name | Relationship | Address | Phone | + + +---------+ + | Thalia Armani | ECON | Unknown | | + + +---------+ + Care Team Providers + +------+ + | Care County Sheriff Name | Role | Phone | + [...] | | 2015 | | Center at [facility] [address] | MD | Review (11/21/2015 | | | | [place] | | Dr. Green OV note - | | | | Mailcode: [place] | | Patel Maral) | | | | for Health and | | | | | | [facility], [place] [address] | | | | | | [place], [place] | | | | | | [address] | | | | | | [phone] | | | +--------+ + + + [...]
--- OUTSIDE RECORDS SUMMARY | ~2020-03-25 | XMS | Encounter Summary ---
Demographics + + + | Address | [address] | | | [place] [address] | + + + | Home Phone [...] Team Providers + +------+ + | Care Biomedical Engineering Internship Name | Role | Phone | + [...] Suicidal Ideation | | 2017 | | [place] [address] | | | | | | Nabor Boone | | | | | | Mailcode: [place] | | | | | | for Health and | | | | | | [facility], [facility] 2 | | | | | | [place], [place] | | | | | | [address] | | | | | | [phone] | | | +--------+ + + + [...]
--- OUTSIDE RECORDS SUMMARY | ~2020-03-25 | XMS | Encounter Summary ---
Demographics + + + | Address | [address] | | | [place] [address] | + + + | Home Phone | | + + + | Preferred Language | Unknown | + + + | Marital Status | Single | + + + | Worship Affiliation | 1013 | + + + | Race | Unknown | + + + | Ethnic Group | Unknown | + + + Author + + + | Author | [facility] [place] | | | and [place] | + + + | Organization | and [facility] | | [...] Team Providers + +------+ + | Care Outbound Telemarketer Name | Role | Phone | + +------+ + | No, Physician | PCP | Unavailable | + +------+ + Reason for Visit +--------+--------+ + | Reason | Onset | Comments | | | Date | | +--------+--------+ + | Emesis | 11/15/ | bowel prep | | | 2014 | | +--------+--------+ + Encounter Details +--------+ + + + + | Date | Type | Department | Care Team | Description | +--------+ + + + + | 11/15/ | Telephone | [facility] | Bryan Cuenca MD | Emesis (bowel prep) | | 2015 | | GASTROENTEROLOGY | [address], [place] | | | | | [address] [place] | [address] [place], [place] | | | | | [address] [place], [place] | [address] | | | | | [address] | | | | | | [phone] | | | +--------+ + + + [...] this encounter Miscellaneous Notes Telephone Encounter - Naty Casarez RN - 11/15/2014 4:27 PM PSTSpoke with patient and he states he started drinking the bowel prep and after 2 glasses he vomited. He will ob tain mag citrate and try 1 bottle later this evening and one bottle in early am. He will c all if further difficulties with the prep. documented in this encounter Plan of Treatment Not on filedocumented as of this encounter Visit Diagnoses Not on filedocumented in this encounter"
--- OUTSIDE RECORDS SUMMARY | ~2020-03-25 | XMS | Encounter Summary ---
Demographics + + + | Address | [address] | | | [place] [address] | + + + | Home Phone [...] + + + | Author | [facility] [place] | | | and [place] | + + + | Organization | [facility] | | | and [place] [...] Team Providers + +------+ + | Care Speech Pathology Assistant Name | Role | Phone | + +------+ + | No, Physician | PCP | Unavailable | + +------+ + Encounter Details +--------+ + + + + | Date | Type | Department | Care Team | Description | +--------+ + + + + | 10/10/ | Hospital | [place] [facility] | Reg [facility] | | | 2014 | Encounter | HOSPITAL EMERGENCY | [address] | | | | | C[address] | [address] | | | | | [address] [place], [place] | [place] [address] | | | | | [address] | [phone] | | | | | [phone] | | | +--------+ + + + [...]
--- OUTSIDE RECORDS SUMMARY | ~2020-03-25 | XMS | Encounter Summary ---
Demographics + + + | Address | [address] | | | [place] [address] | + + + | Home Phone | | + + + | Preferred Language | Unknown | + + + | Marital Status | Single | + + + | Nondenominational Affiliation | CHR | + + + [...] + +------+ + | Care Human Resources Assistant Manager Name | Role | Phone | [...] | | | | | | [facility] | | | | | | | Hospital | | | | | | | [place], [place] | | | | | | | [address] | | | | | | | Phone: | | | | | | | [phone] | +--------+--------+ + + + + Encounter Details +--------+ + + + + | Date | Type | Department | Care Team | Description | +--------+ + + + + | 12/10/ | Emergency | [facility] Emergency | | | | 2015 | | Department [address] | | | | [address] | | | | | | [facility] | | | | | | [place], [place] | | | | | | [address] | | | | | | [phone] | | | +--------+ + + + [...] RN says Mr. Glez was last at [facility] in Oct and did not have testing. [...] 11: 24 AM PDTdocumented in this encounter Plan of Treatment Not on filedocumented as of this encounter Visit Diagnoses Not on filedocumented in this encounter"
--- OUTSIDE RECORDS SUMMARY | ~2020-03-25 | XMS | Encounter Summary ---
Demographics + + + | Address | [address] | | | [place] [address] | + + + | Home Phone [...] Team Providers + +------+ + | Care Instrumentation Technician Name | Role | Phone | [...] | Other | | 2015 | | [place] [facility] [address] | | | | | | [address] | | | | | | Mailcode: [place] | | | | | | for Health and | | | | | | [facility], Building [address] | | | | | | [place], [place] | | | | | | [address] | | | | | | [phone] | | | +--------+ + + + [...]
--- OUTSIDE RECORDS SUMMARY | ~2020-03-25 | XMS | Encounter Summary ---
Demographics + + + | Address | [address] | | | [place] [address] | + + + | Home Phone [...] + | Organization | [facility] | [...] Team Providers + +------+ + | Care Bulldozer Operator Name | Role | Phone | + +------+ + | No, Physician | PCP | Unavailable | + +------+ + Encounter Details +--------+ + + + + | Date | Type | Department | Care Team | Description | +--------+ + + + + | 08/07/ | [facility] | [facility] [facility] | Clement Ventura | | | 2013 | Encounter | HOSPITAL EMERGENCY | [address] | | | | | C[address] | [facility] | | | | | [address] [place], [place] | [place] [address] | | | | | [address] | [phone] | | | | | [phone] | | | +--------+ + + + [...]
--- OUTSIDE RECORDS SUMMARY | ~2020-03-25 | XMS | Encounter Summary ---
Demographics + + + | Address | [address] | | | [place] [address] | + + + | Home Phone [...] Organization | [facility] | | | and [...] Providers + +------+ + | Care Lap Hand Tool Name | Role | Phone | + +------+ + PCP | Unavailable | + +------+ + Encounter Details +--------+ + + + + | Date | Type | Department | Care Team | Description | +--------+ + + + + | 11/13/ | Hospital | [facility] | Clement Ventura | | | 2011 | Encounter | HOSPITAL EMERGENCY | [address] | | | | | C[address] | [facility] | | | | | [address] [place], [place] | [place] [address] | | | | | [address] | [phone] | | | | | [phone] | | | +--------+ + + + [...]
--- OUTSIDE RECORDS SUMMARY | ~2020-03-25 | XMS | Encounter Summary ---
Demographics + + + | Address | [address] | | | [place] [address] | + + + | Home Phone | | + + + | Preferred Language | Unknown | + + + | Marital Status | Single | + + + | Shinto Affiliation | 1013 | + + + | Race | Unknown | + + + | Ethnic Group | Unknown | + + + Author + + + | Author | [facility] | | | and [place] | + + + | Organization | [facility] [...] Providers + +------+ + | Care Print And Pattern Designer Name | Role | Phone | + +------+ + | No, Physician | PCP | Unavailable | + +------+ + Encounter Details +--------+ + + + + | Date | Type | Department | Care Team | Description | +--------+ + + + + | 12/06/ | Abstract | [facility] | Reg [place], | Preventative health | | 2012 | | GASTROENTEROLOGY | [address] [place] | care (Primary Dx) | | | | [address] | [address] [place], | | | | | [address] [place] | [place] [address] | | | | | [address] | [phone] | | | | | [phone] | | | +--------+ + + + [...] + | Diagnosis | + + | Preventative health care - Primary Routine general medical examination at a [facility] | | care facility | + + documented in this encounter"
--- OUTSIDE RECORDS SUMMARY | ~2020-03-25 | XMS | Encounter Summary ---
Demographics + + + | Address | [address] | | | [place] [address] | + + + | Home Phone [...] + | Organization | [facility] | | | and [place] [...] Team Providers + +------+ + | Care Rug Cutter Name | Role | Phone | + +------+ + | No, Physician | PCP | Unavailable | + +------+ + Encounter Details +--------+ + + + + | Date | Type | Department | Care Team | Description | +--------+ + + + + | 08/15/ | Hospital | [facility] | Emily [place], | | | 2013 | Encounter | HOSPITAL LABORATORY | DO [address] [place] | | | | | [address] | [place] [address] | | | | | [place], [place] | [phone] | | | | | [address] | | | | | | [phone] | | | +--------+ + + + [...]
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
--- OUTSIDE RECORDS SUMMARY | ~2020-03-25 | XMS | Encounter Summary ---
Demographics + + + | Address | [address] | | | [place] [address] | + + + | Home Phone [...] | Organization | [facility] | [...] Providers + +------+ + | Care Supervisor Grower Name | Role | Phone | + +------+ + | Emily Green DO | PCP | | + +------+ + Encounter Details +--------+ + + + + | Date | Type | Department | Care Team | Description | +--------+ + + + + | 04/10/ | Orders Only | [facility] | Carmelo Patterson MD | Gastroesophageal | | 2016 | | GASTROENTEROLOGY | [address] | reflux disease, | | | | [address] [facility] | [place], [place] | esophagitis presence | | | | [address] [place], [place] | [address] | not specified | | | | [address] | [phone] | (Primary Dx) | | | | [phone] | | | +--------+ + + + [...] Saritha Hickman RN - 04/10/2016 4:03 PM JAROCHODrEdwige Patterson asked that I order Prilosec 20mg qAM #90 with 3 refills at [facility]. documented in this encounter Plan of Treatment Not on filedocumented as of this encounter Visit Diagnoses + + | Diagnosis | + + | Gastroesophageal reflux disease, esophagitis presence not specified - Primary | + + documented in this encounter"
--- OUTSIDE RECORDS SUMMARY | ~2020-03-25 | XMS | Encounter Summary ---
Demographics + + + | Address | [address] | | | [place] [address] | + + + | Home Phone [...] Team Providers + +------+ + | Care Frame Table Operator Name | Role | Phone | [...] + + + + | 04/18/ | Milk Drying Machine Operator | Digestive Health | [address], | Crohn's disease of | | 2015 | | [place] at [facility] [address] | MD | large intestine with | | | | [address] | | other complication | | | | Mailcode: Center | | ([facility]) (Primary Dx) | | | | for Health and | | | | | | [facility], [facility] 2 | | | | | | [place], [place] | | | | | | [address] | | | | | | [phone] | | | +--------+ + + + [...]
--- OUTSIDE RECORDS SUMMARY | ~2020-03-25 | XMS | Encounter Summary ---
Demographics + + + | Address | [address] | | | [place] [address] | + + + | Home Phone | | + + + | Preferred Language | Unknown | + + + | Marital Status | Single | + + + | Lutheran Affiliation | CHR | + + + [...] Team Providers + +------+ + | Care Pickling Grader Name | Role | Phone | + [...] Abdominal pain | | 2017 | | [place] [address] | MD | | | | | [address] | | | | | | Mailcode: [place] | | | | | | [facility] Health and | | | | | | [facility], [facility] 2 | | | | | | [place], [place] | | | | | | [address] | | | | | | [phone] | | | +--------+ + + + [...]
--- OUTSIDE RECORDS SUMMARY | ~2020-03-25 | XMS | Encounter Summary ---
Demographics + + + | Address | [address] | | | [place] [address] | + + + | Home Phone [...] Team Providers + +------+ + | Care Paperhanger Assistant Name | Role | Phone | [...] | Other | | 2015 | | [place] at [facility] [address] | | | | | | [address] | | | | | | Mailcode: [place] | | | | | | for Health and | | | | | | [facility], Building [address] | | | | | | [place], [place] | | | | | | [address] | | | | | | [phone] | | | +--------+ + + + [...]
--- OUTSIDE RECORDS SUMMARY | ~2020-03-25 | XMS | Encounter Summary ---
Demographics + + + | Address | [address] | | | [place] [address] | + + + | Home Phone [...] Author + + + | Author | [facility] | + + + | Organization | [facility] | + + + | Address | Unknown | + + + | Phone | Unavailable | + + + Support + + +---------+ + | Name | Relationship | Address | Phone | + + +---------+ + | Thalia Armani | ECON | Unknown | | + + +---------+ + Care Team Providers + +------+ + | Care Metallographic Technician Name | Role | Phone | [...] from Patient | | 2017 | | [place] at [facility] [address] | MD | | | | | [address] | | | | | | Mailcode: [place] | | | | | | for Health and | | | | | | [facility], [facility] 2 | | | | | | [place], [place] | | | | | | [address] | | | | | | [phone] | | | +--------+ + + + [...]
--- OUTSIDE RECORDS SUMMARY | ~2020-03-25 | XMS | Encounter Summary ---
Demographics + + + | Address | [address] | | | [place] [address] | + + + | Home Phone [...] Providers + +------+ + | Care Director Card Name | Role | Phone | + [...] Refill Request | | 2015 | | [place] at [facility] [address] | | Radha) | | | | [address] | | | | | | Mailcode: Center | | | | | | [facility] Health and | | | | | | [facility] | | | | | | [place], [place] | | | | | | [address] | | | | | | [phone] | | | +--------+--------+ + + + [...]
--- OUTSIDE RECORDS SUMMARY | ~2020-03-25 | XMS | Encounter Summary ---
Demographics + + + | Address | [address] | | | [place] [address] | + + + | Home Phone [...] Organization | [facility] | | | and [place] [...] Team Providers + +------+ + | Care Dry Talc Racker Name | Role | Phone | + [...] | | | | | site | [place], [place] | [place] [address] | | | | | Abdominal | [address] | Phone: | | | | | pain, | Phone: | [phone] | | | | | unspecified | [phone] | Fax: | | | | | site | Fax: | [phone] | | | | | Procedures | [phone] | | | | | | [place] | | | | | | | COLONOSCOPY, | | | | | | | DIAGNOSTIC | | | | | | | [place] | | | | | | | COLONOSCOPY, | | | | | | | BIOPSY [place] | | | | | | [...] + + | 05/11/ | Telephone | [facility] | Carmelo Patterson MD | Appointment | | 2013 | | GASTROENTEROLOGY | [address] | (reschedule | | | | [address] [facility] | [place], [place] | colonoscopy due to | | | | [address] [place], [place] | [address] | poor prep) | | | | [address] | [phone] | | | | | [phone] | | | +--------+ + + + [...] bowel pr [facility] patient to call if any questions, if [...]
--- OUTSIDE RECORDS SUMMARY | ~2020-03-25 | XMS | Encounter Summary ---
Demographics + + + | Address | [address] | | | [place] [address] | + + + | Home Phone | | + + + | Preferred Language | Unknown | + + + | Marital Status | Single | + + + | Anabaptist Affiliation | 1013 | + + + | Race | Unknown | + + + | Ethnic Group | Unknown | + + + Author + + + | Author | [facility] | | | and [place] | + + + | Organization | [facility] | [...] Providers + +------+ + | Care Animal Cruelty Investigation Supervisor Name | Role | Phone | [...] | CENTER [address] | [facility] | | | | | [address] [place], [place] | [employer] [place] [address] | | | | | [address] | [phone] | | | | | [phone] | | | +--------+ + + + [...] - 1.030 | EXTERNAL | | | Metter, | | | LAB | | | [...] + + + | White Blood | 6-10 | </= 5 /HPF | [...] + + + + | Squamous | MODERATE | /LPF | EXTERNAL | | | Epithelial | | | LAB | | | Cells, | | | | | | Urine | | | | | + + + + + + | Mucus, | MANY | NONE SEEN /HPF | EXTERNAL | | | Urine | [...] | | | abnormality is identified. JOB#: [id number] | | | Read By: RAGHU SUMMERS MD Released By: RAGHU SUMMERS MD | | | Date: 11/04/2014 09:56 | | + + + + + | Procedure Note | + + | Gideon, Rad Results In - 08/05/2017 6:30 PM PST ORIGINAL [...] hernia. CONCLUSION:No acute abnormality is identified. JOB#: [id number] | | Read By: RAGHU SUMMERS MD Released By: RAGHU SUMMERS, MDDate: 11/04/2014 09:56 | | | |adrenal mass [...] identified. | | | | | |JOB#: [id number] | | | |Read By: RAGHU SUMMERS MD | | | |Released By: RAGHU SUMMERS MD | |Date: 11/04/2014 09:56 | | | | | + + documented in this encounter Visit Diagnoses Not on filedocumented in this encounter"
--- OUTSIDE RECORDS SUMMARY | ~2020-03-25 | XMS | Encounter Summary ---
Demographics + + + | Address | [address] | | | [place] [address] | + + + | Home Phone [...] Team Providers + +------+ + | Care Bowling Ball Weigher And Packer Name | Role | Phone | + [...] | | 2016 | | Center at [facility] [address] | | | | | | [address] | | | | | | Mailcode: Center | | | | | | for Health and | | | | | | Healing, Building 2 | | | | | | [place], [place] | | | | | | [address] | | | | | | [phone] | | | +--------+ + + + [...]
--- OUTSIDE RECORDS SUMMARY | ~2020-03-25 | XMS | Encounter Summary ---
Demographics + + + | Address | [address] | | | [place] [address] | + + + | Home Phone [...] + | Author | [facility] | | | and [place] | + + + | Organization | [facility] | [...] Team Providers + +------+ + | Care Electro Mechanical Solar Technician Name | Role | Phone | [...] [address] | [place] [address] | | | | | [place], [place] | [phone] | | | | | [address] | | | | | | [phone] | | | +--------+ + + + [...]
--- OUTSIDE RECORDS SUMMARY | ~2020-03-25 | XMS | Encounter Summary ---
Demographics + + + | Address | [address] | | | [place] [address] | + + + | Home Phone [...] + + + | Author | [facility] | | | and [place] | + + + | Organization | [facility] | | [...] Team Providers + +------+ + | Care Soil Sampler Name | Role | Phone | + [...] | [address] [place], [place] | [place] [address] | | | | | [address] | [phone] | | | | | [phone] | | | +--------+ + + + [...]
--- OUTSIDE RECORDS SUMMARY | ~2020-03-25 | XMS | Encounter Summary ---
Demographics + + + | Address | [address] | | | [place] [address] | + + + | Home Phone [...] Providers + +------+ + | Care Senior Net Software Engineer Name | Role | Phone | [...] | | 2017 | | Center at [facility] [address] | MD | From Patient (Letter | | | | [address] | | from patient) | | | | Mailcode: Center | | | | | | for Health and | | | | | | Healing, Building 2 | | | | | | [place], [place] | | | | | | [address] | | | | | | [phone] | | | +--------+ + + + [...]
--- OUTSIDE RECORDS SUMMARY | ~2020-03-25 | XMS | Encounter Summary ---
Demographics + + + | Address | [address] | | | [place] [address] | + + + | Home Phone [...] [facility] | | | and [...] Team Providers + +------+ + | Care Agribusiness Professor Name | Role | Phone | [...] | | | | | | | ID | | | | | | | COLONOSCOPY, | | | | | | | DIAGNOSTIC | | | | | | | ID | | | | | | | [...] + + | 04/14/ | [facility] | [facility] | Carmelo Patterson MD | EGD / COLONOSCOPY | | 2013 | | MED CTR [facility] | [address] | | | | | [address] | [place] | | | | | [place] | [address] | | | | | [address] | [phone] | | | | | [phone] | | | +--------+---------+ + + + [...] the physician who did your procedure at [phone] if you have any questions or experience any of the following: Increasing abdominal pain, nausea, or vomiting. Chills and fever over 101F. New abdominal swelling or bloating. Signs of rectal bleeding (black or red stool. If you cannot get a hold of your physician, then call the [facility] [phone] . If necessary, report to the Emergency Department at [facility]. Quit smoking: If you smoke or [...] Date Crohn's disease (HCC) hospitalized 11/03/12-11/07/12 at [facility] for crohn's flare Asthma Hypothyroidism Hx of [...] this e ncounter Procedure Notes ONLATONIA SCAN [facility] - 04/18/2014 12:00 AM PDTAssociated Order(s): PATHOLOGY - EXTERNAL SCANEle ctronically signed by Chandra Macdonald at 04/19/2014 4:06 PM [facility] [place] - 04/14/2014 1 2:00 AM PDTAssociated Order(s): PATHOLOGY - EXTERNAL SCAN NLATONIA SCAN [facility] - 04/14/2014 12:00 AM PDTAssociated Order(s): COLONOSCOPY NBASE SCAN [facility] - 04/14/2014 12:00 AM PDTAssociated Order(s): EGDElectronically signed by Chandra Macdonald at 12:36 PM PDTdocumented in this encounter Miscellaneous Notes Miscellaneous - [facility] [place] [facility] - 04/20/2014 12:00 AM PDT lan of Care - [facility] [place] [facility] - 04/17/2014 12:00 AM PDTElec tronically signed by [facility] at 04/17/2014 11:53 AM PDTPlan of Care - [facility] - 04/17/2014 12:00 AM PDTElectronically signed by [facility] at 04/17/2014 11:53 AM PDTMis cellaneous - [facility] SCAN [facility] 04/17/2014 12:00 AM PDT iscellaneous - [facility] [place] [facility] 04/17/2014 12:00 AM PDTElectro nically signed by [facility] at 04/17/2014 11:53 AM PDTdocumented in this [...] | [facility] | | GastroenterologyPatient Name: Rachid GlezProrenu Date: | PROVATION | | 04/14/2014 11:49 AMMRN: [id number] #: [id number] of : | | | 1970Admit Type: AmbulatoryAge: 43Room: [facility] 02Gender: MaleNote | | | Status: FinalizedAttending MD: Carmelo Patterson, [facility]: | | | Upper GI endoscopyIndications: Epigastric abdominal pain, | | | Nausea with vomitingProviders: Carmelo Patterson MD, | | | Monique Ling RN, Johana | | | ADITI Jerez, RUBY NORTON, Grocery Department Manager, Ashwin Wright MD | | | [...] the anesthesiologist and the | | | hydrology technician in the pre-procedure area in the [...] On: 04/14/2014 11:49 AM | | | [facility], [address] [place] [address] | | | [address] | | | - Normal esophagus. | [...] On: 04/14/2014 11:49 AM | | | [facility], [address] [place] [address] | | | [address] | | + + -+ + + | Transcriptions | + + | TrentonChandra sanderson - 04/14/2014 12:00 AM PDT | + [...] | PROVATION | | 04/14/2014 11:47 AMMRN: [id number] #: [id number] of : | | | 1970Admit Type: AmbulatoryAge: 43Room: [facility] 02Gender: MaleNote | | | Status: FinalizedAttending MD: Carmelo Patterson, [facility]ITALrocedure: | | | ColonoscopyIndications: Abdominal painProviders: | | | Carmelo Patterson MD, Monique Ling RN, Johana | | | ADITI Jerez, RUBY NORTON, Grocery Department Manager, Ashwin | | | MD Adriana [...] the anesthesiologist and the | | | hydrology technician in the pre-procedure area in the [...] On: 04/14/2014 | | | 11:47 AM [facility], [address] [facility], | | | [place] [address] | | | colon. No specimens collected. [...] On: 04/14/2014 11:47 AM | | | [facility], [address] [facility], [place], [place] | | | [address] | | + + -+ + + [...] | | | | | CONTINUOUS, Starting Thu04/14/14 | | PM PDT | | | [...]
--- OUTSIDE RECORDS SUMMARY | ~2020-03-25 | XMS | Encounter Summary ---
Demographics + + + | Address | [address] | | | [place] [address] | + + + | Home Phone [...] | [facility] [...] Team Providers + +------+ + | Care Organ Tuner Name | Role | Phone | + +------+ + | No, Physician | PCP | Unavailable | + +------+ + Encounter Details +--------+ + + + + | Date | Type | Department | Care Team | Description | +--------+ + + + + | 08/14/ | Hospital | [facility] | Emily Green, | | | 2014 | Encounter | [facility] | DO [address] [place] | | | | | [facility]ICAL [facility] [address] | [place] [address] | | | | | [address] [place], | [phone] | | | | | [place] [address] | | | | | | [phone] | | | +--------+ + + + [...]
--- OUTSIDE RECORDS SUMMARY | ~2020-03-25 | XMS | Encounter Summary ---
Demographics + + + | Address | [address] | | | [place] [address] | + + + | Home Phone [...] Team Providers + +------+ + | Care Emergency Services Director Name | Role | Phone | + +------+ + | Meaghan Zhong MD | PCP | | + +------+ + Encounter Details +--------+ + + + + | Date | Type | Department | Care Team | Description | +--------+ + + + + | 09/17/ | Documentati | Anesthesiology | Unknown . | | | 2006 | on | [address] | | | | | | [place], | | | | | | [place] [address] | | | +--------+ + + + [...] | + +--------+ + + + | ANESTHESIA/SEDATION | | 09/17/2007 | | Results for this | | | | 11:13 AM | | procedure are in the | | | | PST | | results section. | + +--------+ + + + documented in this encounter Results ANESTHESIA/SEDATION (09/17/2007 11:13 AM PST) + + + | Narrative | Performed At | + + + | Ordered by an unspecified provider. | | + + + + + | Transcriptions | + + | 09/17/2007 11:13 AM [facility] Anesthesia PostOp Report | | | | Patient: RACHID BANGURA [facility] Rec: [id number] Sex M Bdate: 1970 | | Date/Time Data | | [facility] | | Anesth PostOp | | Surgery Date [id number] 09/17/07 11:13 | | Anesthesiologist ODIN RUSSELL 09/17/07 11:13 | | Resident Anesthesiolog KARIME TORRES 09/17/07 11:13 | | | + + documented in this encounter Visit Diagnoses Not on filedocumented in this encounter"
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
--- OUTSIDE RECORDS SUMMARY | ~2020-03-25 | XMS | Encounter Summary ---
Demographics + + + | Address | [address] | | | [place] [address] | + + + | Home Phone [...] Author + + + | Author | [facility] | | | and [place] | + + + | Organization | [facility] | [...] Providers + +------+ + | Care Inside Barrel Polisher Name | Role | Phone | [...] | | | | | [address] | | | | | | [place], [place] | | | | | | [address] | | | | | | [phone] | | | +--------+ + + + [...]
--- OUTSIDE RECORDS SUMMARY | ~2020-03-25 | XMS | Encounter Summary ---
Demographics + + + | Address | [address] | | | [place] [address] | + + + | Home Phone [...] Team Providers + +------+ + | Care Launderer Hand Name | Role | Phone | [...] | +--------+ + + + + | 07/20/ | Telephone | Digestive Health | [address], | Medication Refill | | 2014 | | [place] [address] | | | | | | [address] | | | | | | Mailcode: [place] | | | | | | [facility] Health and | | | | | | [facility] 2 | | | | | | [place], [place] | | | | | | [address] | | | | | | [phone] | | | +--------+ + + + [...]
--- OUTSIDE RECORDS SUMMARY | ~2020-03-25 | XMS | Clinical Summary ---
Demographics + + + | Address | [address] | | | [place] [address] | + + + | Home Phone | | + + + | Preferred Language | Unknown | + + + | Marital Status | Single | + + + | Jewish Affiliation | 1013 | + + + | Race | Unknown | + + + | Ethnic Group | Unknown | + + + Author + + + | Author | [facility] | | | and [place] | + + + | Organization | [facility] | | | and [place] [...] Team Providers + +------+ + | Care Shelving Supervisor Name | Role | Phone | [...] Noted Date | + + + | roasterman current use of systemic steroids | 06/21/2014 [...] Influenza | | 08/19/20 | | | (Season Ended) | 0 | 16, | | | [...] | [employer] | [employer] | [id number] | | [phone] | | [employer] | | MEDICAID HMO [...] | Self | [birth year] | [address] | | Jason | christy/Livan | | 1971 | [phone] | [place] [address] | | | david | | | 0 (Home) | | + +--------+ +--------+ + + Advance Directives + + + + + | Type | Date Recorded | Patient | Explanation | | | | Collar Setter | | + + + + + | Power of | | | | | Motor Rebuilder | | | | + + + + + | Advance | 04/09/2016 9:38 | | | | Directive | AM | | | + + + + +
--- OUTSIDE RECORDS SUMMARY | ~2020-03-25 | XMS | Encounter Summary ---
Demographics + + + | Address | [address] | | | [place] [address] | + + + | Home Phone [...] Team Providers + +------+ + | Care Stuffer Name | Role | Phone | + +------+ + | Meaghan Zhong MD | PCP | | + +------+ + Encounter Details +--------+ + + + + | Date | Type | Department | Care Team | Description | +--------+ + + + + | 09/16/ | Hospital | Registration [id number] | Bea Parks MD | | | 2006 | Activity | [address] | [address] | | | | | [address] Mailcode: [id number] | [address] [place], | | | | | [place], [place] | [place] [address] | | | | | [address] | [phone] | | | | | [phone] | | | +--------+ + + + [...] | + +--------+ + + + | BASIC METABOLIC SET | Routin | 09/20/2007 | | Results for this | | (NA, K, CL, TCO2, | e | 6:14 AM | | procedure are in the | | BUN, CR, GLU, CA) | | PST | | results section. | + +--------+ + + + | PHOSPHORUS, PLASMA | Routin | 09/20/2007 | | Results for this | | | e | 6:14 AM | | procedure are in the | | | | PST | | results section. | + +--------+ + + + | MAGNESIUM, PLASMA | Routin | 09/20/2007 | | Results for this | | | e | 6:14 AM | | procedure are in the | | | | PST | | results section. | + +--------+ + + + | BASIC METABOLIC SET | Routin | 09/19/2007 | | Results for this | | (NA, K, CL, TCO2, | e | 7:57 AM | | procedure are in the | | BUN, CR, GLU, CA) | | PST | | results section. | + +--------+ + + + | CBC ONLY | Routin | 09/19/2007 | | Results for this | | | e | 7:57 AM | | procedure are in the | | | | PST | | results section. | + +--------+ + + + | HEMOGLOBIN | Routin | 09/17/2007 | | Results for this | | | e | 6:04 AM | | procedure are in the | | | | PST | | results section. | + +--------+ + + + | BASIC METABOLIC SET | Routin | 09/17/2007 | | Results for this | | (NA, K, CL, TCO2, | e | 6:04 AM | | procedure are in the | | BUN, CR, GLU, CA) | | PST | | results section. | + +--------+ + + + | CBC ONLY | Routin | 09/17/2007 | | Results for this | | | e | 6:04 AM | | procedure are in the | | | | PST | | results section. | + +--------+ + + + | PHOSPHORUS, PLASMA | Routin | 09/17/2007 | | Results for this | | | e | 6:04 AM | | procedure are in the | | | | PST | | results section. | + +--------+ + + + | MAGNESIUM, PLASMA | Routin | 09/17/2007 | | Results for this | | | e | 6:04 AM | | procedure are in the | | | | PST | | results section. | + +--------+ + + + | SLIDE REVIEW | Urgent | 09/16/2007 | | Results for this | | | | 1:58 PM | | procedure are in the | | | | PST | | results section. | + +--------+ + + + | BASIC METABOLIC SET | Urgent | 09/16/2007 | | Results for this | | (NA, K, CL, TCO2, | | 1:58 PM | | procedure are in the | | BUN, CR, GLU, CA) | | PST | | results section. | + +--------+ + + + | CBC ONLY | Urgent | 09/16/2007 | | Results for this | | | | 1:58 PM | | procedure are in the | | | | PST | | results section. | + +--------+ + + + | SURGICAL PATHOLOGY | Routin | 09/16/2007 | | Results for this | | | e | | | procedure are in the | | | | | | results section. | + +--------+ + + + documented in this encounter Results PHOSPHORUS, PLASMA (09/20/2007 6:14 AM PST) + +-------+ + + + | Component | Value | Ref Range | Performed | Pathologist | | | | | At | Signature | + +-------+ + + + | PHOSPHORUS, | 2.7 | 2.4 - 4.7 mg/dL | [facility] | | | PLASMA | | | DEPARTMENT | | | (LAB) | | | OF | | | | | | PATHOLOGY | | + +-------+ + + + + + | Specimen | + + | | + + + + + + + | Performing | Address | City/State/Zipcode | Phone Number | | Organization | | | | + + + + + | [facility] | [facility] | [place] [address] | | | PATHOLOGY | [address] | | | + + + + + | [facility] | [address] [place] [address] | [place] [address] | | | PATHOLOGY | [address] | | | + + + + + MAGNESIUM, PLASMA (09/20/2007 6:14 AM PST) + +-------+ + + + | Component | Value | Ref Range | Performed | Pathologist | | | | | At | Signature | + +-------+ + + + | MAGNESIUM,P | 2.3 | 1.8 - 2.5 mg/dL | [facility] | | | LASMA | | | DEPARTMENT | | | | | | OF | | | | | | PATHOLOGY | | + +-------+ + + + + + | Specimen | + + | | + + + + + + + | Performing | Address | City/State/Zipcode | Phone Number | | Organization | | | | + + + + + | [facility] DEPARTMENT OF | [address] | [place] [address] | | | PATHOLOGY | [address] | | | + + + + + | [facility] DEPARTMENT OF | [address] | [place] [address] | | | PATHOLOGY | [address] | | | + + + + + BASIC METABOLIC SET (09/20/2007 6:14 AM PST) + +---------+ + + + | Component | Value | Ref Range | Performed | Pathologist | | | | | At | Signature | + +---------+ + + + | GLUCOSE, | 100 (H) | 60 - 99 mg/dL | [facility] | | | PLASMA | | | DEPARTMENT | | | (LAB) | | | OF | | | | | | PATHOLOGY | | + +---------+ + + + | BUN, PLASMA | 4 (L) | 6 - 20 mg/dL | [facility] | | | (LAB) | | | DEPARTMENT | | | | | | OF | | | | | | PATHOLOGY | | + +---------+ + + + | CREATININE | 1.1 | 0.7 - 1.3 mg/dL | [facility] | | | PLASMA | | | DEPARTMENT | | | (LAB) | | | OF | | | | | | PATHOLOGY | | + +---------+ + + + | SODIUM, | 137 | 136 - 145 | [facility] | | | PLASMA | | mmol/L | DEPARTMENT | | | (LAB) | | | OF | | | | | | PATHOLOGY | | + +---------+ + + + | POTASSIUM, | 4.0 | 3.5 - 5.1 | [facility] | | | PLASMA | | mmol/L | DEPARTMENT | | | (LAB) | | | OF | | | | | | PATHOLOGY | | + +---------+ + + + | CHLORIDE, | 107 | 98 - 107 mmol/L | [facility] | | | PLASMA | | | DEPARTMENT | | | (LAB) | | | OF | | | | | | PATHOLOGY | | + +---------+ + + + | TOTAL CO2, | 29 | 23 - 29 mmol/L | [facility] | | | PLASMA | | | DEPARTMENT | | | (LAB) | | | OF | | | | | | PATHOLOGY | | + +---------+ + + + | CALCIUM, | 8.7 | 8.5 - 10.5 | [facility] | | | PLASMA | | mg/dL | DEPARTMENT | | | (LAB) | | | OF | | | | | | PATHOLOGY | | + +---------+ + + + + + | Specimen | + + | | + + + + + + + | Performing | Address | City/State/Zipcode | Phone Number | | Organization | | | | + + + + + | [facility] DEPARTMENT OF | [address] | [place] [address] | | | PATHOLOGY | [address] | | | + + + + + | [facility] | [address] | [place] [address] | | | PATHOLOGY | [address] | | | + + + + + BASIC METABOLIC SET (09/19/2007 7:57 AM PST) + +---------+ + + + | Component | Value | Ref Range | Performed | Pathologist | | | | | At | Signature | + +---------+ + + + | GLUCOSE, | 90 | 60 - 99 mg/dL | [facility] | | | PLASMA | | | DEPARTMENT | | | (LAB) | | | OF | | | | | | PATHOLOGY | | + +---------+ + + + | BUN, PLASMA | 4 (L) | 6 - 20 mg/dL | [facility] | | | (LAB) | | | DEPARTMENT | | | | | | OF | | | | | | PATHOLOGY | | + +---------+ + + + | CREATININE | 1.1 | 0.7 - 1.3 mg/dL | [facility] | | | PLASMA | | | DEPARTMENT | | | (LAB) | | | OF | | | | | | PATHOLOGY | | + +---------+ + + + | SODIUM, | 140 | 136 - 145 | [facility] | | | PLASMA | | mmol/L | DEPARTMENT | | | (LAB) | | | OF | | | | | | PATHOLOGY | | + +---------+ + + + | POTASSIUM, | 3.2 (L) | 3.5 - 5.1 | [facility] | | | PLASMA | | mmol/L | DEPARTMENT | | | (LAB) | | | OF | | | | | | PATHOLOGY | | + +---------+ + + + | CHLORIDE, | 105 | 98 - 107 mmol/L | [facility] | | | PLASMA | | | DEPARTMENT | | | (LAB) | | | OF | | | | | | PATHOLOGY | | + +---------+ + + + | TOTAL CO2, | 30 (H) | 23 - 29 mmol/L | [facility] | | | PLASMA | | | DEPARTMENT | | | (LAB) | | | OF | | | | | | PATHOLOGY | | + +---------+ + + + | CALCIUM, | 8.6 | 8.5 - 10.5 | [facility] | | | PLASMA | | mg/dL | DEPARTMENT | | | (LAB) | | | OF | | | | | | PATHOLOGY | | + +---------+ + + + + + | Specimen | + + | | + + + + + + + | Performing | Address | City/State/Zipcode | Phone Number | | Organization | | | | + + + + + | [facility] | [address] [facility] | [place] [address] | | | PATHOLOGY | [address] | | | + + + + + | [facility] | [address] [facility] | [place] [address] | | | PATHOLOGY | [address] | | | + + + + + CBC ONLY WITH PLATELET (09/19/2007 7:57 AM PST) + + + + + + | Component | Value | Ref Range | Performed | Pathologist | | | | | At | Signature | + + + + + + | WHITE CELL | 9.9 | 4.4 - 11.0 K/cu | [facility] | | | COUNT | | mm | DEPARTMENT | | | | | | OF | | | | | | PATHOLOGY | | + + + + + + | RED CELL | 3.65 (L) | 4.50 - 5.90 | [facility] | | | COUNT | | M/cu mm | DEPARTMENT | | | | | | OF | | | | | | PATHOLOGY | | + + + + + + | HEMOGLOBIN | 12.5 (L) | 13.5 - 17.5 | [facility] | | | | | g/dL | DEPARTMENT | | | | | | OF | | | | | | PATHOLOGY | | + + + + + + | HEMATOCRIT | 35.8 (L) | 41.0 - 53.0 % | [facility] | | | | | | DEPARTMENT | | | | | | OF | | | | | | PATHOLOGY | | + + + + + + | MCV | 98.3 (H) | 80.0 - 96.0 fL | [...] + + + + | RDW | 13.0 | 11.5 - 15.0 % | [facility] | | | | | | DEPARTMENT | | | | | | OF | | | | | | PATHOLOGY | | + + + + + + | PLATELET | 221 | 150 - 400 K/cu | [facility] [...] | + + + + + | [facility] | [address] | [place] [address] | | | PATHOLOGY | [address] | | | + + + + + | [facility] | [address] [facility] | [place] [address] | | | PATHOLOGY | [address] | | | + + + + + PHOSPHORUS, PLASMA (09/17/2007 6:04 AM PST) + +-------+ + + + | Component | Value | Ref Range | Performed | Pathologist | | | | | At | Signature | + +-------+ + + + | PHOSPHORUS, | 2.8 | 2.4 - 4.7 mg/dL | [facility] | | | PLASMA | | | DEPARTMENT | | | (LAB) | | | OF | | | | | | PATHOLOGY | | + +-------+ + + + + + | Specimen | + + | | + + + + + + + | Performing | Address | City/State/Zipcode | Phone Number | | Organization | | | | + + + + + | [facility] DEPARTMENT OF | [address] | [place] [address] | | | PATHOLOGY | [address] | | | + + + + + | [facility] DEPARTMENT OF | [address] | [place] [address] | | | PATHOLOGY | [address] | | | + + + + + MAGNESIUM, PLASMA (09/17/2007 6:04 AM PST) + +-------+ + + + | Component | Value | Ref Range | Performed | Pathologist | | | | | At | Signature | + +-------+ + + + | MAGNESIUM,P | 2.0 | 1.8 - 2.5 mg/dL | [facility] | | | LASMA | | | DEPARTMENT | | | | | | OF | | | | | | PATHOLOGY | | + +-------+ + + + + + | Specimen | + + | | + + + + + + + | Performing | Address | City/State/Zipcode | Phone Number | | Organization | | | | + + + + + | [facility] | [address] | [place] [address] | | | PATHOLOGY | [address] | | | + + + + + | [facility] | [address] | [place] [address] | | | PATHOLOGY | [address] | | | + + + + + BASIC METABOLIC SET (09/17/2007 6:04 AM PST) + +---------+ + + + | Component | Value | Ref Range | Performed | Pathologist | | | | | At | Signature | + +---------+ + + + | GLUCOSE, | 118 (H) | 60 - 99 mg/dL | [facility] | | | PLASMA | | | DEPARTMENT | | | (LAB) | | | OF | | | | | | PATHOLOGY | | + +---------+ + + + | BUN, PLASMA | 9 | 6 - 20 mg/dL | [facility] | | | (LAB) | | | DEPARTMENT | | | | | | OF | | | | | | PATHOLOGY | | + +---------+ + + + | CREATININE | 1.1 | 0.7 - 1.3 mg/dL | [facility] | | | PLASMA | | | DEPARTMENT | | | (LAB) | | | OF | | | | | | PATHOLOGY | | + +---------+ + + + | SODIUM, | 137 | 136 - 145 | [facility] | | | PLASMA | | mmol/L | DEPARTMENT | | | (LAB) | | | OF | | | | | | PATHOLOGY | | + +---------+ + + + | POTASSIUM, | 4.1 | 3.5 - 5.1 | [facility] | | | PLASMA | | mmol/L | DEPARTMENT | | | (LAB) | | | OF | | | | | | PATHOLOGY | | + +---------+ + + + | CHLORIDE, | 105 | 98 - 107 mmol/L | [facility] | | | PLASMA | | | DEPARTMENT | | | (LAB) | | | OF | | | | | | PATHOLOGY | | + +---------+ + + + | TOTAL CO2, | 29 | 23 - 29 mmol/L | [facility] | | | PLASMA | | | DEPARTMENT | | | (LAB) | | | OF | | | | | | PATHOLOGY | | + +---------+ + + + | CALCIUM, | 8.1 (L) | 8.5 - 10.5 | [facility] | | | PLASMA | | mg/dL | DEPARTMENT | | | (LAB) | | | OF | | | | | | PATHOLOGY | | + +---------+ + + + + + | Specimen | + + | | + + + + + + + | Performing | Address | City/State/Zipcode | Phone Number | | Organization | | | | + + + + + | [facility] | [facility] | [place] [address] | | | PATHOLOGY | [address] | | | + + + + + | [facility] DEPARTMENT OF | [facility] | [place] [address] | | | PATHOLOGY | [address] | | | + + + + + CBC ONLY WITH PLATELET (09/17/2007 6:04 AM PST) + + + + + + | Component | Value | Ref Range | Performed | Pathologist | | | | | At | Signature | + + + + + + | WHITE CELL | 18.9 (H) | 4.4 - 11.0 K/cu | [facility] | | | COUNT | | mm | DEPARTMENT | | | | | | OF | | | | | | PATHOLOGY | | + + + + + + | RED CELL | 3.67 (L) | 4.50 - 5.90 | [facility] | | | COUNT | | M/cu mm | DEPARTMENT | | | | | | OF | | | | | | PATHOLOGY | | + + + + + + | HEMOGLOBIN | 12.6 (L) | 13.5 - 17.5 | [facility] | | | | | g/dL | DEPARTMENT | | | | | | OF | | | | | | PATHOLOGY | | + + + + + + | HEMATOCRIT | 35.8 (L) | 41.0 - 53.0 % | [facility] | | | | | | DEPARTMENT | | | | | | OF | | | | | | PATHOLOGY | | + + + + + + | MCV | 97.4 (H) | 80.0 - 96.0 fL | [facility] | | | | | | DEPARTMENT | | | | | | OF | | | | | | PATHOLOGY | | + + + + + + | MCHC | 35.1 | 33.4 - 35.5 | [facility] | | | | | g/dL | DEPARTMENT | | | | | | OF | | | | | | PATHOLOGY | | + + + + + + | RDW | 13.6 | 11.5 - 15.0 % | [facility] | | | | | | DEPARTMENT | | | | | | OF | | | | | | PATHOLOGY | | + + + + + + | PLATELET | 230 | 150 - 400 K/cu | [facility] [...] + | [facility] | [address] | [place] [address] | | | PATHOLOGY | [address] | | | + + + + + | [facility] | [address] | [place] [address] | | | PATHOLOGY | [address] | | | + + + + + HEMOGLOBIN, WHOLE BLOOD (09/17/2007 6:04 AM PST) + + + + + + | Component | Value | Ref Range | Performed | Pathologist | | | | | At | Signature | + + + + + + | HEMOGLOBIN | 12.6 (L) | 13.5 - 17.5 | [facility] | | | | | g/dL | [...] | + + + + + | [facility] DEPARTMENT | [address] [facility] | [place] [address] | | | PATHOLOGY | [address] | | | + + + + + | [facility] | [address] [facility] | [place] [address] | | | PATHOLOGY | [address] | | | + + + + + SLIDE REVIEW (09/16/2007 1:58 PM PST) + + | Specimen | + + | | + + + + + | Narrative | Performed At | + + + | * Corrected 09/16/07 15:06: ZUHAIR DELGADO, prev report: Not | [facility] | | reported | DEPARTMENT OF | | | PATHOLOGY | + + + + + + + + | Performing | Address | City/State/Zipcode | Phone Number | | Organization | | | | + + + + + | [facility] DEPARTMENT OF | [address] | [place] [address] | | | PATHOLOGY | [address] | | | + + + + + | [facility] DEPARTMENT OF | [address] | [place] [address] | | | PATHOLOGY | [address] | | | + + + + + CBC ONLY WITH PLATELET (09/16/2007 1:58 PM PST) + + + + + + | Component | Value | Ref Range | Performed | Pathologist | | | | | At | Signature | + + + + + + | RED CELL | 4.16 (L) | 4.50 - 5.90 | [facility] | | | COUNT | | M/cu mm | DEPARTMENT | | | | | | OF | | | | | | PATHOLOGY | | + + + + + + | HEMOGLOBIN | 14.2 | 13.5 - 17.5 | [facility] | | | | | g/dL | DEPARTMENT | | | | | | OF | | | | | | PATHOLOGY | | + + + + + + | HEMATOCRIT | 40.6 (L) | 41.0 - 53.0 % | [facility] | | | | | | DEPARTMENT | | | | | | OF | | | | | | PATHOLOGY | | + + + + + + | MCV | 97.5 (H) | 80.0 - 96.0 fL | [facility] | | | | | | DEPARTMENT | | | | | | OF | | | | | | PATHOLOGY | | + + + + + + | MCHC | 35.0 | 33.4 - 35.5 | [facility] | | | | | g/dL | DEPARTMENT | | | | | | OF | | | | | | PATHOLOGY | | + + + + + + | RDW | 13.3 | 11.5 - 15.0 % | [facility] | | | | | | DEPARTMENT | | | | | | OF | | | | | | PATHOLOGY | | + + + + + + | PLATELET | 298 | 150 - 400 K/cu | [facility] | | | COUNT | | mm | DEPARTMENT | | | | | | OF | | | | | | PATHOLOGY | | + + + + + + | WHITE CELL | 26.0 (H) | 4.4 - 11.0 K/cu | [facility] | | | COUNT | | mm | DEPARTMENT | | | | | | OF | | | | | | PATHOLOGY | | + + + + + + | CBC | Final WBC Report. | | [facility] | | | COMMENTS | | | DEPARTMENT | | | | | | OF | | | | | | PATHOLOGY | | + + + + + + + + | Specimen | + + | | + + + + + | Narrative | Performed At | + + + | * Corrected 09/16/07 15:06: ZUHAIR DELGADO, prev report: Not | [facility] | | reported | DEPARTMENT OF | | | PATHOLOGY | + + + + + + + + | Performing | Address | City/State/Zipcode | Phone Number | | Organization | | | | + + + + + | [facility] DEPARTMENT OF | [address] | [place] [address] | | | PATHOLOGY | [address] | | | + + + + + | [facility] DEPARTMENT OF | [address] | [place] [address] | | | PATHOLOGY | [address] | | | + + + + + BASIC METABOLIC SET (09/16/2007 1:58 PM PST) + +---------+ + + + | Component | Value | Ref Range | Performed | Pathologist | | | | | At | Signature | + +---------+ + + + | GLUCOSE, | 141 (H) | 60 - 99 mg/dL | [facility] | | | PLASMA | | | DEPARTMENT | | | (LAB) | | | OF | | | | | | PATHOLOGY | | + +---------+ + + + | BUN, PLASMA | 11 | 6 - 20 mg/dL | [facility] | | | (LAB) | | | DEPARTMENT | | | | | | OF | | | | | | PATHOLOGY | | + +---------+ + + + | CREATININE | 1.3 | 0.7 - 1.3 mg/dL | [facility] | | | PLASMA | | | DEPARTMENT | | | (LAB) | | | OF | | | | | | PATHOLOGY | | + +---------+ + + + | SODIUM, | 140 | 136 - 145 | [facility] | | | PLASMA | | mmol/L | DEPARTMENT | | | (LAB) | | | OF | | | | | | PATHOLOGY | | + +---------+ + + + | POTASSIUM, | 3.5 | 3.5 - 5.1 | [facility] | | | PLASMA | | mmol/L | DEPARTMENT | | | (LAB) | | | OF | | | | | | PATHOLOGY | | + +---------+ + + + | CHLORIDE, | 109 (H) | 98 - 107 mmol/L | [facility] | | | PLASMA | | | DEPARTMENT | | | (LAB) | | | OF | | | | | | PATHOLOGY | | + +---------+ + + + | TOTAL CO2, | 24 | 23 - 29 mmol/L | [facility] | | | PLASMA | | | DEPARTMENT | | | (LAB) | | | OF | | | | | | PATHOLOGY | | + +---------+ + + + | CALCIUM, | 7.6 (L) | 8.5 - 10.5 | [facility] | | | PLASMA | | mg/dL | DEPARTMENT | | | (LAB) | | | OF | | | | | | PATHOLOGY | | + +---------+ + + + + + | Specimen | + + | | + + + + + + + | Performing | Address | City/State/Zipcode | Phone Number | | Organization | | | | + + + + + | [facility] | [address] [facility] | [place] [address] | | | PATHOLOGY | [address] | | | + + + + + | [facility] | [address] [facility] | [place] [address] | | | PATHOLOGY | [address] | | | + + + + + SURGICAL PATHOLOGY (09/16/2007) + + + + + + | Component | Value | Ref Range | Performed | Pathologist | | | | | At | Signature | + + + + + + | SURGICAL | SOURCE OF SPECIMEN:A | | [facility] | | | PATHOLOGY | ColostomySOURCE OF | | DEPARTMENT | | | | SPECIMEN:B Hernia sac | | OF | | | | Final Pathologic | | PATHOLOGY | | | | Diagnosis:A: | | | | | | Colostomy, colostomy | | | | | | revision: - | | | | | | Enterocutaneous | | | | | | anastomosis with patchy | | | | | | chronic inflammation B: | | | | | | Hernia sac, hernia | | | | | | repair: - | | | | | | Fibroadipose tissue, | | | | | | consistent with hernia | | | | | | sac Case reviewed | | | | | | by:Kim Solis M.D. | | | | | | /Surgical Pathology | | | | | | Amanda Rock | | | | | | Sheri, | | | | | | M.DEdwige/PathologistT: | | | | | | 09/20// I have | | | | | | reviewed all diagnostic | | | | | | slides and have edited | | | | | | the gross | | | | | | and/ormicroscopic | | | | | | portion of this report | | | | | | as part of my pathologic | | | | | | assessment andfinal | | | | | | diagnosis. Clinical | | | | | | History:The patient is a | | | | | | 36-year-old male | | | | | | Crohn's disease with | | | | | | parastomal hernia. Gross | | | | | | Description:Two | | | | | | specimens are received | | | | | | fresh in a containers | | | | | | labeled with the | | | | | | patientname (initials | | | | | | CR). A: Colostomy: | | | | | | Received is a portion | | | | | | of bowel, 3 cm in length | | | | | | x 2.7 cm indiameter, | | | | | | that is stapled alone | | | | | | one aspect and opens | | | | | | into a 3.2 x | | | | | | 2.9-cmsmooth, owens-red | | | | | | stoma along the opposite | | | | | | aspect. The stoma is | | | | | | partiallyringed by up to | | | | | | 0.3 cm of owens skin. | | | | | | The bowel segment is | | | | | | openedlongitudinally to | | | | | | reveal normally folded | | | | | | pale owens mucosa with no | | | | | | obviouslesions | | | | | | identified. The | | | | | | submucosa at the stoma | | | | | | is edematous up to 0.6 | | | | | | cmthick, and there is a | | | | | | small amount of | | | | | | hemorrhage associated | | | | | | with embeddedsutures. | | | | | | A longitudinal | | | | | | full-thickness section | | | | | | is submitted. B: | | | | | | Hernia sac: Received | | | | | | is a 23.5 x 5-cm | | | | | | sheet-like fragment of | | | | | | tissue,up to 1.2 cm | | | | | | thick, that is diffusely | | | | | | torn, owens-pink to | | | | | | hemorrhagicred-purple | | | | | | and smooth along one | | | | | | aspect. The opposite | | | | | | aspect has mildcautery | | | | | | and attached lobular, | | | | | | yellow-fatty tissue. A | | | | | | representativesection | | | | | | of the specimen is | | | | | | submitted. Cassette | | | | | | Index:A: Colostomy:A1, | | | | | | stomaB: Hernia | | | | | | sac:B1KK:JBD:labRenderin | | | | | | g Diagnostician: | | | | | | Jean-Pierre Wade | | | | | | JaydaPathologistElectroni | | | | | | esperanza Signed 09/20/2007 | | | | + + + + + + + + | Specimen | + + | | + + + + + + + | Performing | Address | City/State/Zipcode | Phone Number | | Organization | | | | + + + + + | [facility] | [facility] | [place] [address] | | | PATHOLOGY | [address] | | | + + + + + | [facility] DE[facility] | [facility] | [place] [address] | | | PATHOLOGY | [address] | | | + + + + + documented in this encounter Visit Diagnoses Not on filedocumented in this encounter"
--- OUTSIDE RECORDS SUMMARY | ~2020-03-25 | XMS | Encounter Summary ---
Demographics + + + | Address | [address] | | | [place] [address] | + + + | Home Phone [...] Organization | [facility] | | | [...] Team Providers + +------+ + | Care Mold Designer Name | Role | Phone | + +------+ + | Emily Green DO | PCP | | + +------+ + Encounter Details +--------+ + + + + | Date | Type | Department | Care Team | Description | +--------+ + + + + | 12/10/ | Hospital | [facility] | Emily Green, | | | 2017 | Encounter | [facility] | DO [address] [place] | | | | | [facility] [address] | [facility] [place] [address] | | | | | [address] [place], | [phone] | | | | | [place] [address] | | | | | | [phone] | | | +--------+ + + + [...]
--- OUTSIDE RECORDS SUMMARY | ~2020-03-25 | XMS | Encounter Summary ---
Demographics + + + | Address | [address] | | | [place] [address] | + + + | Home Phone [...] Organization | [facility] | | | and [place] [...] Team Providers + +------+ + | Care Protective Signal Operator Name | Role | Phone | + +------+ + | No, Physician | PCP | Unavailable | + +------+ + Encounter Details +--------+ + + + + | Date | Type | Department | Care Team | Description | +--------+ + + + + | 09/13/ | Hospital | [facility] | Emily Green, | | | 2014 | Encounter | [facility] | DO [address] | | | | | [facility] | [place] [address] | | | | | [address] [place], | [phone] | | | | | [place] [address] | | | | | | [phone] | | | +--------+ + + + [...]
--- OUTSIDE RECORDS SUMMARY | ~2020-03-25 | XMS | Encounter Summary ---
Demographics + + + | Address | [address] | | | [place] [address] | + + + | Home Phone [...] | Organization | [facility] | | | and [...] Team Providers + +------+ + | Care Crib Tender Name | Role | Phone | [...] [place] | | | | | | [address] | | | | | | [phone] | | | +--------+ + + + [...]
--- OUTSIDE RECORDS SUMMARY | ~2020-03-25 | XMS | Encounter Summary ---
Demographics + + + | Address | [address] | | | [place] [address] | + + + | Home Phone [...] | Organization | [facility] | | [...] Team Providers + +------+ + | Care Plastics Fabricator Name | Role | Phone | + [...] | | | disease | | [address] | | | | | without | | [place], | | | | | complication | | [place] [address] | | | | | , | | Phone: | | | | | unspecified | | [phone] | | | | | gastrointest | | Fax: | | | | | inal tract | | [phone] | | | | | location | [...] + + + + | 04/09/ | Hospital | [facility] | Carmelo Patterson MD | Gastroesophageal | | 2016 | Encounter | MED CTR MP INTRA OP | [address] | reflux disease, | | | | [address] | [place] | esophagitis presence | | | | [place] | [address] | not specified | | | | [address] | [phone] | (Primary Dx); | | | | [phone] | | Crohn's disease with | | | | | | complication, | | | | | | unspecified | | | | | | gastrointestinal | | | | | | tract location (HCC) | +--------+ + + + + [...] the physician who did your procedure at [phone] if you have any questions or experience any of the following: ? Increasing abdominal pain, nausea, or vomiting. ? Chills and fever over 101F. ? New abdominal swelling or bloating. ? Signs of rectal bleeding (black or red stool). If you cannot get a hold of your physician, then call the [facility] [phone] . If necessary, report to the [...] Date Crohn's disease (HCC) hospitalized 11/03/12-11/07/12 at [facility] for crohn's flare Asthma Hypothyroidism Hx [...] Laterality: N/A; Surgeon: Carmelo Patterson MD; Location: [facility] MEDICAL PROCEDURE UNIT Colonoscopy N/A 11/16/2014 Procedure: COLONOSCOPY; Surgeon: Carmelo Patterson MD; Location: [facility] MEDICAL PROCEDURE UNI T HOME MEDS: [...] Electronically Signed by: Carmelo Patterson MD 04/08/2016 [facility] Portions of this chart may have been created with Arachno voice recognition software. Occasi onal wrong-word or sound-alike substitutions may have occurred due to the inherent trejo itations of voice recognition software. Please read the chart carefully and recognize, using context, where these substitutions have occurred documented in this enc ounter Miscellaneous Notes D-C Instructions Provation - Carmelo Patterson MD - 04/09/2016 9:17 AM PDTDischarge Instruct ions for Upper Endoscopy Patient: Rachid Glez : 1970 Acct: [id number] Exam Date: Saturday, April 09, 2016 Doctor: Carmelo Patterson MD The chances of difficulty following this procedure are minimal. The following instruction s will assist you in your recovery. 1. Do Not eat or drink anything for 1 hour. Try sips of water first. If tolerated, resu me your regular diet or one recommended by your physician. 2. Do not drive, operate wally [email or web address], make critical decisions, or do activities that [...] may reach your physician at Work: Ext [phone]. If unable to reach your p hysian, call [facility] Emergency Department at Ext. [phone] Your doctor [...] Exams Patient: Rachid Glez : 1970 Acct: [id number] Exam Date: Saturday, April 09, 2016 Doctor: [...] may reach your physician at Work: Ext [phone]. If unable [facility], call [facility] Emergency Department at Ext. [phone] Your doctor [...] has been given to the patient/escort. Nurse Signerum esquivel Patient Signature Carmelo Patterson MD 04/09/2016 10:31 [...] | PROVATION | | 04/09/2016 9:17 AMMRN: [id number] #: [id number] of : | | | 1970Admit Type: AmbulatoryAge: 45Room: [facility] 02Gender: MaleNote | | | Status: FinalizedAttending MD: Carmelo Patterson, [facility]cedure: | | | Upper GI endoscopyIndications: Nausea with | | | vomitingProviders: Carmelo Patterson MD, [facility] Hospitalkandcie | | | ADITI Stewart, Kaylen Hernandez RN, Iraida | | | Stepan, Compliance Testing Analyst, Nima Lynn MD | | | (Anesthesia [...] the | | | anesthesiologist and the fiberglass technician in the pre-procedure area in the [...] AMScope Out: 9:46:40 AM | | | [facility], [address], [place] | | | [address] | | | instructions were provided to [...] |Scope Out: 9:46:40 AM | | | [facility], [address] [facility], [place] | | | [address] | | + + -+ + +---------+ [...] GlezProcedkim Date: | PROVATION | | 04/09/2016 9:15 AMMRN: [id number] #: [id number] of : | | | 1970Admit Type: AmbulatoryAge: 45Room: [facility] 02Gender: MaleNote | | | Status: FinalizedAttending MD: Carmelo Patterson, RAVENrocedure: | | | ColonoscopyIndications: Follow-up of Crohn's disease of | | | the colonProviders: Carmelo Patterson MD, Nini | | | ADITI Stewart, Kaylen Hernandez RN, Iraida | | | Stepan, Compliance Testing Analyst, Nima Lynn MD | | | (Anesthesia [...] the | | | anesthesiologist and the fiberglass technician in the pre-procedure area in the [...] | | 9:53:11 AMScope Out: 10:24:21 AM [facility] | | | [place], [address] [place] [address] | | | - High fiber diet [...] |Scope Out: 10:24:21 AM | | | Former[facility], [address] [facility] [place] | | | [address] | | + + -+ + +---------+ [...] | | | endoscopic correlation is recommended. [facility]:C2NR GROSS | | | DESCRIPTION: Received in nine parts. A. Received in formalin | | | labeled "Druze Newton" and "duodenal bx" on the requisition are | | | eight pink-owens tissue fragments measuring from 0.1-0.7 cm, submitted, | | | all in (A1). B. Received in formalin labeled "Druze Newton" | | | and "gastric bx" on the requisition are two pink-owens tissue fragments | | | measuring from 0.35-0.55 cm, submitted, all in (B1). C. Received | | | in formalin labeled "Druze Newton" and "esophagus bx" on the | | | requisition are seven pink-owens tissue fragments measuring from | | | <0.1-0.4 cm, submitted, all in (C1). D. Received in formalin | | | labeled "Druze Newton" and "right colon bx" on the requisition | | | are four pink-owens tissue fragments measuring from 0.2-0.5 cm, | | | submitted, all in (D1). | | | E. Received in formalin | | | labeled "Druze Newton" and "transverse colon bx" on the | | | requisition are four pink-owens tissue fragments measuring from 0.4-0.6 | | | cm, submitted all into (E1). F. Received in formalin labeled | | | "Druze Newton" and "descending colon bx" on the requisition are | | | five pink-owens tissue fragments measuring from 0.1-0.8 cm, submitted, | | | all in (F1). G. Received in formalin labeled "Druze Newton" | | | and "sigmoid colon bx" on the requisition are six pink-owens tissue | | | fragments measuring from 0.2-0.5 cm submitted, all in (G1). H. | | | Received in formalin labeled "Druze Newton" and "rectal bx" on | | | the requisition are seven pink-owens tissue fragments measuring from | | | 0.25-0.5 cm, submitted, all in (H1). I. Received in formalin | | | labeled "Druze Newton" and "sigmoid polyp bx" on the requisition | | | are five red-brown fragments measuring from 0.1-0.4 cm, submitted, all | | | in (I1). ka:CLR:[facility] PERFORMING LABORATORY: Tissue processing | | | and slide preparation were performed by [facility], [address] | | [address], [place] [address] (Boring Mill Set Up Operator: Agusto | | | Jayda Mccracken CLIA#: [id number]). Professional interpretation was | | | performed by [employer], [address] | | | [place] [address] (Boring Mill Set Up Operator: Agusto Mccracken M.D.; CLIA#: | | | [id number]). Diagnostician: Ruiz Barrett DO Pathologist | | [...] not specified - Primary | + + | Crohn's [...] | mL/hr | | | CONTINUOUS, Starting 04/09/16 | | AM PDT | | | | | at 0845, TKO., Pre-op | | | | | | + +---------+ +------+-------+ + +---+---+ | | | +---+---+ + +-------+ +------+---+---+ | ondansetron (ZOFRAN) 2 mg/mL | Given | 04/09/20 | 4 mg | | | | injection Starting 04/09/16 | | 16 11:41 | | | | | at 1145, For 1 dose, | | AM PDT | | | | | RADHA CORTEZ: go | | | | | | | override, | | | | | | + +-------+ +------+---+---+ +---+---+ | | | +---+---+ documented in this encounter
--- OUTSIDE RECORDS SUMMARY | ~2020-03-25 | XMS | Encounter Summary ---
Demographics + + + | Address | [address] | | | [place] [address] | + + + | Home Phone | | + + + | Preferred Language | Unknown | + + + | Marital Status | Single | + + + | Shinto Affiliation | CHR | + + + [...] Team Providers + +------+ + | Care Supply Chain Project Manager Name | Role | Phone [...] + + | 04/09/ | Telephone | Booth Manager | Chayito Perez, | Suicidal Ideation | | 2017 | IP | [address] | PLATE MOLDER [address] [facility] | (follow up by PAT | | | | [address]le [address] [place], | [address] | evening/weekend SW | | | | [place] [address] | [place], [place] | at request of | | | | | [address] | Christopher) | +--------+ + + + [...]
--- OUTSIDE RECORDS SUMMARY | ~2020-03-25 | XMS | Encounter Summary ---
Demographics + + + | Address | [address] | | | [place] [address] | + + + | Home Phone | | + + + | Preferred Language | Unknown | + + + | Marital Status | Single | + + + | Hoahaoism Affiliation | CHR | + + + [...] Team Providers + +------+ + | Care Seasoning Sprayer Name | Role | Phone | + [...] | | | | | | [facility] | | | | | | | Hospital | | | | | | | [place], [place] | | | | | | | [address] | | | | | | | Phone: | | | | | | | [phone] | +--------+--------+ + + + + Encounter Details +--------+ + + + + | Date | Type | Department | Care Team | Description | +--------+ + + + + | 12/10/ | Emergency | [facility] Emergency | | | | 2015 | | Department [address] | | | | [address] | | | | | | [facility] | | | | | | [place], [place] | | | | | | [address] | | | | | | [phone] | | | +--------+ + + + [...] Lopez MD - 12/11/2015 11:18 AM PDTLocation: [facility] Caller: ADITI Glez, pt of Dr. [...] RN says Mr. Glez was last at [facility] ER in Oct and did not have [...]
--- OUTSIDE RECORDS SUMMARY | ~2020-03-25 | XMS | Encounter Summary ---
Demographics + + + | Address | [address] | | | [place] [address] | + + + | Home Phone [...] Author + + + | Author | [facility] | + + + | Organization | [facility] | + + + | Address | Unknown | + + + | Phone | Unavailable | + + + Support + + +---------+ + | Name | Relationship | Address | Phone | + + +---------+ + | Thalia Armani | ECON | Unknown | | + + +---------+ + Care Team Providers + +------+ + | Care Dross Skimmer Name | Role | Phone | + [...] | | 2016 | | Center at [facility] [address] | | | | | | [address] | | | | | | Mailcode: Center | | | | | | for Health and | | | | | | Healing, [address] | | | | | | [place], [place] | | | | | | [address] | | | | | | [phone] | | | +--------+ + + + [...]
--- OUTSIDE RECORDS SUMMARY | ~2020-03-25 | XMS | Encounter Summary ---
Demographics + + + | Address | [address] | | | [place] [address] | + + + | Home Phone [...] Organization | [facility] | [...] Team Providers + +------+ + | Care Imposer Name | Role | Phone | + [...] | [address] [place] | [address] [facility], | | | | | [facility], [place] | [place] [address] | | | | | [address] | [phone] | | | | | [phone] | | | +--------+ + + + [...]
--- OUTSIDE RECORDS SUMMARY | ~2020-03-25 | XMS | Encounter Summary ---
Demographics + + + | Address | [address] | | | [place] [address] | + + + | Home Phone [...] + + + | Author | [facility] | | | and [place] | + + + | Organization | [facility] | | | and [...] Team Providers + +------+ + | Care Poultry Dressing Worker Name | Role | Phone | + +------+ + | No, Physician | PCP | Unavailable | + +------+ + Encounter Details +--------+ + + + + | Date | Type | Department | Care Team | Description | +--------+ + + + + | 10/24/ | Hospital | [facility] | Emily Green, | | | 2014 | Encounter | [facility] | DO [address] | | | | | MEDICAL CLIN[address] | [place] [address] | | | | | [address] [place], | [phone] | | | | | [place] [address] | | | | | | [phone] | | | +--------+ + + + [...]
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
--- OUTSIDE RECORDS SUMMARY | ~2020-03-25 | XMS | Encounter Summary ---
Demographics + + + | Address | [address] | | | [place] [address] | + + + | Home Phone | | + + + | Preferred Language | Unknown | + + + | Marital Status | Single | + + + | Advent Affiliation | CHR | + + + [...] Team Providers + +------+ + | Care Service Order Clerk Name | Role | Phone | [...] Medical Records | | 2015 | | [place] [address] | | Review | | | | [address] | | | | | | Mailcode: [place] | | | | | | [facility] and | | | | | | [facility] 2 | | | | | | [place], [place] | | | | | | [address] | | | | | | [phone] | | | +--------+ + + + [...]
--- OUTSIDE RECORDS SUMMARY | ~2020-03-25 | XMS | Encounter Summary ---
Demographics + + + | Address | [address] | | | [place] [address] | + + + | Home Phone [...] + + | Organization | [facility] | | [...] Providers + +------+ + | Care Sports Fitness And Wellness Director Name | Role | Phone | [...] [address] | [place] [address] | | | | | [place], [place] | [phone] | | | | | [address] | | | | | | [phone] | | | +--------+ + + + [...]
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
--- OUTSIDE RECORDS SUMMARY | ~2020-03-25 | XMS | Encounter Summary ---
Demographics + + + | Address | [address] | | | [place] [address] | + + + | Home Phone | | + + + | Preferred Language | Unknown | + + + | Marital Status | Single | + + + | Hinduism Affiliation | 1013 | + + + | Race | Unknown | + + + | Ethnic Group | Unknown | + + + Author + + + | Author | [facility] | | | and [place] | + + + | Organization | [facility] | [...] Team Providers + +------+ + | Care Retail Bakery Manager Name | Role | Phone | [...] [place] | | | | | | [address] | | | | | | [phone] | | | +--------+ + + + [...]
--- OUTSIDE RECORDS SUMMARY | ~2020-03-25 | XMS | Encounter Summary ---
Demographics + + + | Address | [address] | | | [place] [address] | + + + | Home Phone [...] + | Organization | [facility] | [...] Team Providers + +------+ + | Care Resource Director Name | Role | Phone | + +------+ + | Emily Green DO | PCP | | + +------+ + Encounter Details +--------+ + + + + | Date | Type | Department | Care Team | Description | +--------+ + + + + | 08/19/ | Hospital | [facility] | Emily Green, | | | 2016 | Encounter | [facility] | DO [address] | | | | | MEDICAL CLIN[address] | [place] [address] | | | | | [address] [place], | [phone] | | | | | [place] [address] | | | | | | [phone] | | | +--------+ + + + [...]
--- OUTSIDE RECORDS SUMMARY | ~2020-03-25 | XMS | Encounter Summary ---
Demographics + + + | Address | [address] | | | [place] [address] | + + + | Home Phone [...] Team Providers + +------+ + | Care Fryer Operator Name | Role | Phone | [...] Medication Refill | | 2015 | | [place] [address] [address] | | | | | | [address] | | | | | | Mailcode: [place] | | | | | | [facility] and | | | | | | [facility] 2 | | | | | | [place], [place] | | | | | | [address] | | | | | | [phone] | | | +--------+ + + + [...]
--- OUTSIDE RECORDS SUMMARY | ~2020-03-25 | XMS | Encounter Summary ---
Demographics + + + | Address | [address] | | | [place] [address] | + + + | Home Phone [...] Author + + + | Author | [facility] | + + + | Organization | [facility] | + + + | Address | Unknown | + + + | Phone | Unavailable | + + + Support + + +---------+ + | Name | Relationship | Address | Phone | + + +---------+ + | Thalia Armani | ECON | Unknown | | + + +---------+ + Care Team Providers + +------+ + | Care Store Promoter Name | Role | Phone | + [...] | | 2015 | | Center at [facility] [address] | MD | Review (11/21/2015 | | | | [address] | | Dr. Green OV note - | | | | Mailcode: [place] | | Patel Maral) | | | | for Health and | | | | | | [facility], [place] [address] | | | | | | [place], [place] | | | | | | [address] | | | | | | [phone] | | | +--------+ + + + [...]
--- OUTSIDE RECORDS SUMMARY | ~2020-03-25 | XMS | Encounter Summary ---
Demographics + + + | Address | [address] | | | [place] [address] | + + + | Home Phone [...] + +------+ + | Care Bindery Machine Feeder Offbearer Name | Role | Phone | + [...] | | 2017 | | AMBULATORY [address] | [address] | | | | | [address] | [address] [place], | | | | | Mailcode: [facility] | [place] [address] | | | | | [place], [place] | | | | | | [address] | | | | | | [phone] | | | +--------+ + + + [...]
--- OUTSIDE RECORDS SUMMARY | ~2020-03-25 | XMS | Encounter Summary ---
Demographics + + + | Address | [address] | | | [place] [address] | + + + | Home Phone [...] | Organization | [facility] | | | and [...] Providers + +------+ + | Care Shop Manager Name | Role | Phone | + +------+ + | No, Physician | PCP | Unavailable | + +------+ + Encounter Details +--------+ + + + + | Date | Type | Department | Care Team | Description | +--------+ + + + + | 11/18/ | Emergency | [facility] | Levi Hoffmann, | Left upper quadrant | | 2016 - | | MEDICAL CENTER | MD Dereck PATEL | pain; | | | | EMERGENCY JOSE | [place] [address] | Non-intractable | | 11/19/ | | [address] | [phone] | vomiting with | | 2016 | | [place] | | nausea, vomiting of | | | | [phone] | | unspecified type | | | | [phone] | | | +--------+ + + + [...] documented as of this encounter ED Notes Conversion Transaction, Provider Unknown - 11/18/2015 11:36 PM PSTFormatting of this note m ight be different from the original. ED Notes by Sergey Smallwood RN at 11/18/152335 Author: Sergey Smallwood RN Service: (none) Author Type: Registered Nurse Filed: 11/18/152336 Date of Service: 11/18/152335 Status: Signed Crane Chaser: Sergey Smallwood RN (Registered Nurse) Up to the bathroom to void. Sergey Smallwood RN 11/18/152336 onver sharad Transaction, Provider Unknown - 11/18/2015 10:47 PM PST ED Notes by Carissa Walters RN at 11/18/152246 Author: Carissa Walters RN Service: (none) Author Type: Registered Nurse Filed: 11/18/152247 Date of Service: 11/18/152246 Status: Signed Crane Chaser: Carissa Walters RN (Registered Nurse) Spoke with ADITI Tejada and Fidel Edwards, at [facility] in [place], [place] for patient r ecord requests. Mallory provided with [facility] fax number and [facility] main number to contact back if needed. Carissa Walters RN 11/18/15 2248 [email or web address] , Levi Park MD - 11/18/2015 10:20 PM PSTFormatting of this note might be different from the o riginal. ED Provider Notes by Levi Hoffmann MD at 11/18/152219 Author: Levi Hoffmann MD Service: (none) Author Type: Physician Filed: 11/24/15 0655 Date of Service: 11/18/152219 Status: Signed Crane Chaser: Levi Hoffmann MD (Physician) [facility] Department of Emergency Medicine 10:21 PM History of Present Illness Patient Identification Josie Bangura is a 45 y.o. male. Patient information was obtained from patient and spouse/partner. History/Exam limitations: none. Patient presented to the Emergency Department by: Car Chief Complaint Chief Complaint Patient presents with Nausea Crohn's flair up. per patient. Emesis This is a 45 y.o. male with chief complaint of abdominal pain. Onset of symptoms was today, with a consistent course since that time. The symptoms are currently described to be of mil d to moderate severity. The patient states the pain is localized around his umbilicus. Pt al so complains of nausea and vomiting (total of 3 episodes today). The pt was diagnosed with C hron's disease in 2005 and states he thinks he is having a flare up. The pt states that he h as lost around 80 pounds in the past year. He is anticipating follow up at [facility] for an explo ratory surgery. Pt is on Lialda since May 2015, which the pt states is working well so me times. His doctor prescribed him to take 4 Lialda a day but the pt was recently was takin g 6 until he ran out. Other significant factors in the PMH are noted and include: Pt had a resection with colosto my in 2007 at [facility]. The pt was seen in the ED in [place] 10/12/15, was treated and release d. The pt was admitted to the hospital with a partial bowel obstruction 07/2015. He required NG suction but was d/c without surgery. PCP: Emily Green Past Medical History Diagnosis Date Thyroid disease Asthma Past Surgical History Procedure Laterality Date Leg surgery Prior to Admission medications Medication Sig Start Date End Date Taking? Authorizing Provider ipratropium-albuterol (COMBIVENT) 18-103 MCG/ACT inhaler Inhale 2 puffs into the lungs ever y 6 (six) hours as needed for Wheezing. Yes Historical Provider HYDROcodone-acetaminophen (NORCO) 10-325 MG per tablet Take 1 tablet by mouth every 6 (six) hours as needed for Pain. Yes Historical Provider ondansetron (ZOFRAN) 8 MG tablet Take 8 mg by mouth every 8 (eight) hours as needed for Tio sea. Yes Historical Provider Allergies Allergen Reactions Toradol [Ketorolac] Other (See Comments) Pt states the IM injection "hurts for two weeks" Morphine Abdominal Pain History Social History Marital Status: Single Spouse Name: N/A Number of Children: N/A Years of Education: N/A Occupational History Not on file. Social History Main Topics Smoking status: Never Smoker Smokeless tobacco: Not on file Alcohol Use: No Drug Use: Yes Special: Marijuana Sexual Activity: Not on file Other Topics Concern Not on file Social History Narrative No narrative on file History reviewed. No pertinent family history. Review of Systems Review of Systems Constitutional: Negative for fever and chills. Gastrointestinal: Positive for nausea, vomiting and abdominal pain. Skin: Negative for rash. Neurological: Negative for headaches. Endo/Heme/Allergies: Does not bruise/bleed easily. All other systems reviewed and are negative. Physical Exam BP 125/85 mmHg | Pulse 61 | Temp(Src) 98.1 F (36.7 C) (Oral) | Resp 18 | Ht 1.575 m (5' 2") | Wt 58.3 kg (128 lb 8.5 oz) | BMI 23.50 kg/m2 | SpO2 98% Vitals: Normal Pulse Oximetry Interpretation: Normal General: Alert, in no acute distress, non-toxic Head: Normocephalic. Atraumatic. Eyes: Normal inspection, pupils equal and round, non-icteric, EOM full ENT: Ears and nose normal external inspection Pharynx normal Moist mucous membranes, pink appearing Neck: Normal inspection Supple No lymphadenopathy. No JVD CVS: Rate and rhythm normal No Bruits. No murmurs Respiratory: Breath sounds normal bilaterally, normal chest rise and fall, no obvious traum a Abdomen: Well healed scar from prior LLQ colostomy, abdominal tenderness was poorly localiz ed, no rebound, normal bowel sounds. Soft, non-distended, CVA's non-tender. No guarding. No masses. No hernias. Rectal deferred Back: No point tenderness. Moves without difficulty Extremities: Moves all extremities without pain or restriction. No obvious deformity. Well perfused. No calf tenderness No leg swelling Skin: Color normal. Warm and dry. No rash noted Neuro: No gross motor/sensory deficits noted. No facial asymmetry Medical Decision Making and Emergency Department Course ED Department Course 10:38 PM Pt presents to the ED complaining of abdominal pain. On exam, pt has a well healed scar from prior LLQ colostomy, abdominal tenderness was poorly localized, no rebound, jose l bowel sounds noted. I feel that the list of possible emergent diagnoses that the patient requires an evaluation for includes (but is not limited to) chron's flare up with or without obstruction, with or without perforation, vs other. I believe that laboratory testing and further diagnostic test ing is necessary to ensure that there is no acute emergent cause of the symptoms. Will order CMP, CBC, Lipase, Protime, C-reative protein, Urinalysis, Magnesium and order fluids then r eevaluate. 11:16 PM Pt recheck. The pt is feeling better at this time. The pt will finish up his fluid s and we discussed discharging the him on a steroid course. 11:28 PM I received past medical records on the pt from [facility] in [place]. I have discussed my clinical impression and treatment plan with the pt. We have specificall y discussed the signs and symptoms that would constitute the need for an immediate return to the ED, the importance of continued outpatient f/u and the importance of compliance with th e d/c instructions. I have answered any questions that the pt has to the best of my ability. Based upon the pt s history, physical exam, ED course, and diagnostic studies, I feel sidney t there is no current emergent medical condition that warrants admission, transfer, or furth er ED treatment at this time. Medications sodium chloride (bolus) 0.9 % 1,000 mL (0 mLs Intravenous Stopped 11/18/15 4925) ondansetron (ZOFRAN) injection 4 mg (4 mg Intravenous Given 11/18/15 0135) HYDROmorphone (DILAUDID) injection 1 mg (1 mg Intravenous Given 11/18/15 2353) methylPREDNISolone (Solu-MEDROL) injection 125 mg (125 mg Intravenous Given 11/18/15 2333) ondansetron (ZOFRAN) injection 4 mg (4 mg Intravenous Given 11/19/15 0008) Filed Vitals: 11/18/15 2225 11/18/15 2331 11/18/15 2349 11/19/15 0036 BP: 125/85 129/89 136/80 128/73 Pulse: 61 62 56 58 Temp: 98.1 F (36.7 C) 98.3 F (36.8 C) TempSrc: Oral Oral Resp: Height: 1.575 m (5' 2") Weight: 58.3 kg (128 lb 8.5 oz) SpO2: 98% 96% 98% 92% Records Reviewed Old medical records. Nursing notes. No prior [facility] ED visits. The pt was seen in the ED in [place] 10/12/15, was treated and released. The pt was admit alo to the hospital with a partial bowel obstruction 07/2015. He required NG suction but was d/c without surgery. Laboratory Evaluation Results Procedure Component Value Ref Range Date/Time Magnesium [[id number]] Collected: 11/18/152227 Order Status: Completed Specimen Information: Blood Updated: 11/18/152257 MAGNESIUM 2.1 1.7 - 2.4 mg/dL Lipase [[id number]] Collected: 11/18/152227 Order Status: Completed Specimen Information: Blood Updated: 11/18/152257 LIPASE 113 73 - 393 U/L C-reactive protein [[id number]] Collected: 11/18/152227 Order Status: Completed Specimen Information: Blood Updated: 11/18/152257 CRP <0.2 <0.5 mg/dL Comprehensive metabolic panel [[id number]] Collected: 11/18/152227 Order Status: Completed Specimen Information: Blood Updated: 11/18/152257 SODIUM 143 135 - 143 mmol/L POTASSIUM 4.2 3.5 - 4.9 mmol/L CHLORIDE 105 99 - 109 mmol/L CO2 29 23 - 32 mmol/L ANION GAP AGAP 13 5 - 20 mmol/L GLUCOSE 90 65 - 99 mg/dL BUN 11 8 - 25 mg/dL CREATININE 1 0.70 - 1.30 mg/dL BUN/CREAT 11 CALCIUM 8.8 8.5 - 10.5 mg/dL TOTAL PROTEIN 6.6 6.3 - 8.2 g/dL Albumin 3.8 3.6 - 5.0 g/dL GLOBULIN 2.8 1.3 - 4.9 g/dL A/G 1.4 1.0 - 2.4 TBIL 0.4 0.1 - 1.5 mg/dL ALK PHOS 106 35 - 115 U/L AST 23 10 - 45 U/L ALT 39 10 - 65 U/L EGFR >60 >60 mL/min/1.73m2 Protime [[id number]] Collected: 11/18/152227 Order Status: Completed Specimen Information: Blood Updated: 11/18/152256 INR 1.1 CBC with differential [[id number]] Collected: 11/18/152227 Order Status: Completed Specimen Information: Blood Updated: 11/18/152239 WBC 7.82 3.80 - 11.00 K/uL RBC 4.48 4.20 - 5.70 M/uL HGB 15.2 13.2 - 17.0 g/dL HCT 44.0 39.0 - 50.0 % MCV 98.2 80.0 - 100.0 fl MCH 33.9 27.0 - 34.0 pg MCHC 34.6 32.0 - 35.5 g/dL RDW SD 44.6 37 - 53 fl PLT 247 150 - 400 K/uL MPV 7.8 fl DIFF TYPE AUTOMATED NEUTROPHILS 44.75 % LYMPHOCYTES 41.80 % MONOCYTES 8.72 % EOSINOPHILS 3.60 % BASOPHILS 1.13 % NEUTROPHILS ABS 3.50 1.90 - 7.40 K/uL LYMPHOCYTES ABS 3.27 1.00 - 3.90 K/uL MONOCYTES ABS 0.68 0.00 - 0.80 K/uL EOSINOPHILS ABS 0.28 0.00 - 0.50 K/uL BASOPHILS ABS 0.09 0.00 - 0.10 K/uL I personally reviewed the lab results and they have been posted to the chart. Pertinent po sitive and negative findings have been addressed appropriately. Radiology and EKG Evaluation Imaging Results Acute Abdominal Series (Final result) Result time: 11/19/15 06:54:40 Final result by Rad Results In Gideon (11/19/15 06:54:40) Impression: 1. No acute findings in the abdomen. Possible constipation. Narrative: TEMPLE Vivian BANGURA XR ABDOMEN ACUTE SERIES 11/18/2015 11:05 PM HISTORY: Abdominal pain. TECHNIQUE: Acute abdomen series including one view of the chest and 2 views of the abdomen. FINDINGS: No comparison. No evidence of free air under the diaphragm. No evidence of free air under t he diaphragm. Surgical clips in the right upper quadrant, probably from cholecystectomy. Sma ll soft tissue calcification in the right flank, probably an injection granuloma. The bowel gas pattern appears unremarkable. There is no bowel distention or air-fluid levels to sugges t obstruction. Presumed phlebolith in the right pelvis. Increased stool in the colon may ind icate constipation. ED Diagnoses Final diagnoses Left upper quadrant pain Non-intractable vomiting with nausea, vomiting of unspecified type Disposition: ED Disposition Orders Discharge Condition at discharge: Stable Follow-up Information Follow up With Details Comments Contact Info Emily Green DO In 1 week For follow up [address] [place] [address] [phone] [facility] If symptoms worsen [address] [facility] [address] Discharge Medications: Discharge Medication List as of 11/18/2015 11:39 PM START taking these medications Details predniSONE (DELTASONE) 20 MG tablet Take 2 tablets by mouth daily., Starting 11/18/2015, [place] 11/23/15, Print Levi Hoffmann MD Procedures Additional Documentation Procedures Attending Note: Documentation assistance provided by Leslie Haji (Scribe). Information recorded by the scribe has been reviewed and validated by me. Cesar pastor with its contents. Levi Hoffmann MD 11/24/15 0655 onversion Transacti on, Provider Unknown - 11/18/2015 10:14 PM PSTFormatting of this note might be different fro m the original. ED Notes by Carissa Walters RN at 11/18/152213 Author: Carissa Walters RN Service: (none) Author Type: Registered Nurse Filed: 11/18/152213 Date of Service: 11/18/152213 Status: Signed Crane Chaser: Carissa Walters RN (Registered Nurse) Pt states when he has these flair ups "they give me nausea medication and dilaudid". Pt sta phil he tried his dissolvable zofran and "they didn't help". Carissa Walters RN 11/18/152213 docume nted in this encounter Plan of Treatment Not on filedocumented as of this encounter Procedures + +--------+ + + + | Procedure Name | Priori | Date/Time | Associated Diagnosis | Comments | | | ty | | | | + +--------+ + + + | XR ABDOMEN AP | Routin | 11/18/2015 | | Results for this | | UPRIGHT KUB AND MELIZA | e | 11:05 PM | | [...] Performed At | + + + | [facility] ABDOMEN ACUTE SERIES 11/18/2015 11:05 [...] Procedure Note | + + | Gideon, Guru Conversion - 05/12/2019 5:37 PM PDT [facility] ODOM ABDOMEN ACUTE | | SERIES11/18/2015 11:05 PM [...] | | | | | performed at [facility], [address] | | | | | [address], | | | | | | [place] [address] | | | | + + + [...] EXTERNAL | | | | performed at [facility], [address] | K/uL | LAB | | | | [address], | | | | | | [place] [address] | | | | + + + + + + | Red Blood | 4.48Comment: Testing | 4.20 - 5.70 | EXTERNAL | | | Cells | performed at [facility], [address] | M/uL | LAB | | | Counted | [address], | | | | | | [place] [address] | | | | + + + + + + | Hemoglobin | 15.2Comment: Testing | 13.2 - 17.0 | EXTERNAL | | | | performed at [facility], [address] | g/dL | LAB | | | | [address], | | | | | | [place] [address] | | | | + + + + + + | Hematocrit, | 44.0Comment: Testing | 39.0 - 50.0 % | EXTERNAL | | | POC | performed at [facility], [address] | | LAB | | | | [address], | | | | | | [place] [address] | | | | + + + + + + | MCV | 98.2Comment: Testing | 80.0 - 100.0 fl | EXTERNAL | | | | performed at [facility], [address] | | LAB | | | | [address], | | | | | | [place] [address] | | | | + + + + + + | MCH | 33.9Comment: Testing | 27.0 - 34.0 pg | EXTERNAL | | | | performed at [facility], [address] | | LAB | | | | [address], | | | | | | [place] [address] | | | | + + + + + + | MCHC | 34.6Comment: Testing | 32.0 - 35.5 | EXTERNAL | | | | performed at [facility], [address] | g/dL | LAB | | | | [address], | | | | | | [place] [address] | | | | + + + + + + | RDW-CV | 44.6Comment: Testing | 37 - 53 fl | EXTERNAL | | | | performed at [facility], [address] | | LAB | | | | [address], | | | | | | [place] [address] | | | | + + + + + + | Platelet | 247Comment: Testing | 150 - 400 K/uL | EXTERNAL | | | Count | performed at [facility], [address] | | LAB | | | Plasma | [address], | | | | | | [place] [address] | | | | + + + + + + | MPV | 7.8Comment: Testing | fl | EXTERNAL | | | | performed at [facility], [address] | | LAB | | | | [address], | | | | | | [place] [address] | | | | + + + + + + | Differentia | AUTOMATEDComment: | | EXTERNAL | | | l Type | Testing performed at | | LAB | | | | [facility], [address], | | | | | | [place] [address] | | | | + + + + + + | % Segmented | 44.75Comment: Testing | % | EXTERNAL | | | | performed at [facility], [address] | | LAB | | | Neutrophils | [address], | | | | | | [place] [address] | | | | + + + + + + | % | 41.80Comment: Testing | % | EXTERNAL | | | Lymphocytes | performed at [facility], [address] | | LAB | | | | [address], | | | | | | [place] [address] | | | | + + + + + + | % Monocytes | 8.72Comment: Testing | % | EXTERNAL | | | | performed at [facility], [address] | | LAB | | | | [address], | | | | | | [place] [address] | | | | + + + + + + | % | 3.60Comment: Testing | % | EXTERNAL | | | Eosinophils | performed at [facility], [address] | | LAB | | | | [address], | | | | | | [place] [address] | | | | + + + + + + | % Basophils | 1.13Comment: Testing | % | EXTERNAL | | | | performed at [facility], [address] | | LAB | | | | [address], | | | | | | [place] [address] | | | | + + + + + + | Absolute | 3.50Comment: Testing | 1.90 - 7.40 | EXTERNAL | | | Segmented | performed at [facility], [address] | K/uL | LAB | | | Neutrophils | [address], | | | | | | [place] [address] | | | | + + + + + + | Absolute | 3.27Comment: Testing | 1.00 - 3.90 | EXTERNAL | | | Lymphocytes | performed at [facility], [address] | K/uL | LAB | | | | [address], | | | | | | [place] [address] | | | | + + + + + + | Absolute | 0.68Comment: Testing | 0.00 - 0.80 | EXTERNAL | | | Monocytes | performed at [facility], [address] | K/uL | LAB | | | | [address], | | | | | | [place] [address] | | | | + + + + + + | Absolute | 0.28Comment: Testing | 0.00 - 0.50 | EXTERNAL | | | Eosinophils | performed at [facility], [address] | K/uL | LAB | | | | [address], | | | | | | [place] [address] | | | | + + + + + + | Absolute | 0.09Comment: Testing | 0.00 - 0.10 | EXTERNAL | | | Basophils | performed at [facility], [address] | K/uL | LAB | | | | [address], | | | | | | [place] [address] | | | | + + + [...] EXTERNAL | | | | performed at [facility], [address] | | LAB | | | | [address], | | | | | | [place] [address] | | | | + + + [...] EXTERNAL | | | | performed at [facility], [address] | | LAB | | | | [address], | | | | | | [place] [address] | | | | + + + [...] EXTERNAL | | | | performed at [facility], [address] | | LAB | | | | [address], | | | | | | [place] [address] | | | | + + + [...] EXTERNAL | | | | performed at [facility], [address] | mmol/L | LAB | | | | [address], | | | | | | [place] [address] | | | | + + + + + + | K | 4.2Comment: Testing | 3.5 - 4.9 | EXTERNAL | | | | performed at [facility], [address] | mmol/L | LAB | | | | [address], | | | | | | [place] [address] | | | | + + + + + + | Cl | 105Comment: Testing | 99 - 109 mmol/L | EXTERNAL | | | | performed at [facility], [address] | | LAB | | | | [address], | | | | | | [place] [address] | | | | + + + + + + | CO2 | 29Comment: Testing | 23 - 32 mmol/L | EXTERNAL | | | | performed at [facility], [address] | | LAB | | | | [address], | | | | | | [place] [address] | | | | + + + + + + | Anion Gap | 13Comment: Testing | 5 - 20 mmol/L | EXTERNAL | | | | performed at [facility], [address] | | LAB | | | | [address], | | | | | | [place] [address] | | | | + + + + + + | Glucose, | 90Comment: Testing | 65 - 99 mg/dL | EXTERNAL | | | Fasting | performed at [facility], [address] | | LAB | | | | [address], | | | | | | [place] [address] | | | | + + + + + + | BUN | 11Comment: Testing | 8 - 25 mg/dL | EXTERNAL | | | | performed at [facility], [address] | | LAB | | | | [address], | | | | | | [place] [address] | | | | + + + + + + | Creatinine | 1Comment: Testing | 0.70 - 1.30 | EXTERNAL | | | | performed at [facility], [address] | mg/dL | LAB | | | | [address], | | | | | | [place] [address] | | | | + + + + + + | BUN/Creatin | 11Comment: Testing | | EXTERNAL | | | ine Ratio | performed at [facility], [address] | | LAB | | | | [address], | | | | | | [place] [address] | | | | + + + + + + | Calcium | 8.8Comment: Testing | 8.5 - 10.5 | EXTERNAL | | | | performed at [facility], [address] | mg/dL | LAB | | | | [address], | | | | | | [place] [address] | | | | + + + + + + | Protein, | 6.6Comment: Testing | 6.3 - 8.2 g/dL | EXTERNAL | | | Total | performed at [facility], [address] | | LAB | | | | [address], | | | | | | [place] [address] | | | | + + + + + + | Albumin | 3.8Comment: Testing | 3.6 - 5.0 g/dL | EXTERNAL | | | | performed at [facility], [address] | | LAB | | | | [address], | | | | | | [place] [address] | | | | + + + + + + | Globulin | 2.8Comment: Testing | 1.3 - 4.9 g/dL | EXTERNAL | | | | performed at [facility], [address] | | LAB | | | | [address], | | | | | | [place] [address] | | | | + + + + + + | A/G Ratio | 1.4Comment: Testing | 1.0 - 2.4 | EXTERNAL | | | | performed at [facility], [address] | | LAB | | | | [address], | | | | | | [place] [address] | | | | + + + + + + | Bilirubin | 0.4Comment: Testing | 0.1 - 1.5 mg/dL | EXTERNAL | | | Total | performed at [facility], [address] | | LAB | | | | [address], | | | | | | [place] [address] | | | | + + + + + + | ALP, | 106Comment: Testing | 35 - 115 U/L | EXTERNAL | | | External | performed at [facility], [address] | | LAB | | | | [address], | | | | | | [place] [address] | | | | + + + + + + | AST | 23Comment: Testing | 10 - 45 U/L | EXTERNAL | | | | performed at [facility], [address] | | LAB | | | | [address], | | | | | | [place] [id number] | | | | + + + + + + | ALT | 39Comment: Testing | 10 - 65 U/L | EXTERNAL | | | | performed at [facility], [address] | | LAB | | | | [address], | | | | | | [place] [id number] | | | | + + + [...] | | | | | | at [facility], [address] | | | | | | [address] [place], [place] | | | | | | [id number] | | | | + + + [...]
--- OUTSIDE RECORDS SUMMARY | ~2020-03-25 | XMS | Encounter Summary ---
Demographics + + + | Address | [address] | | | [place] [address] | + + + | Home Phone [...] Providers + +------+ + | Care Rn Maternity Name | Role | Phone | + [...] from Patient | | 2017 | | [place] [facility] [address] | MD | | | | | [address] | | | | | | Mailcode: [place] | | | | | | for Health and | | | | | | [facility] | | | | | | [place], [place] | | | | | | [address] | | | | | | [phone] | | | +--------+ + + + [...]
--- OUTSIDE RECORDS SUMMARY | ~2020-03-25 | XMS | Encounter Summary ---
Demographics + + + | Address | [address] | | | [place] [address] | + + + | Home Phone [...] Providers + +------+ + | Care Senior Energy Consultant Name | Role | Phone | + +------+ + | Meaghan Zhong MD | PCP | | + +------+ + Encounter Details +--------+ + + + + | Date | Type | Department | Care Team | Description | +--------+ + + + + | 05/14/ | Orders Only | [facility] | [address], | | | 2014 | | [place] at [facility] [address] | | | | | | [address] | | | | | | Mailcode: [place] | | | | | | [facility] | | | | | | Healing, [address] | | | | | | [facility] [place] | | | | | | [address] | | | | | | [phone] | | | +--------+ + + + [...]
--- OUTSIDE RECORDS SUMMARY | ~2020-03-25 | XMS | Encounter Summary ---
Demographics + + + | Address | [address] | | | [place] [address] | + + + | Home Phone [...] | | | | | [place], | | | | | | [place] [address] | | | +--------+ + + + [...] | + + | 09/17/2007 11:13 AM [facility] Anesthesia PostOp Report | | | | Patient: RACHID BANGURA [facility] Rec: [id number] Sex M Bdate: 1970 | | Date/Time Data | | Entered Into [facility] | | Anesth PostOp | | Surgery Date [id number] 09/17/07 11:13 | | Anesthesiologist ODIN RUSSELL 09/17/07 11:13 | | Resident Anesthesiolog KARIME TORRES 09/17/07 11:13 | | | + + documented in this encounter Visit Diagnoses Not on filedocumented in this encounter"
--- OUTSIDE RECORDS SUMMARY | ~2020-03-25 | XMS | Encounter Summary ---
Demographics + + + | Address | [address] | | | [place] [address] | + + + | Home Phone [...] | Author | [facility] | | | and [place] | + + + | Organization | [facility] | | [...] Team Providers + +------+ + | Care Lcpc Name | Role | Phone | + +------+ + PCP | Unavailable | + +------+ + Encounter Details +--------+ + + + + | Date | Type | Department | Care Team | Description | +--------+ + + + + | 10/23/ | Hospital | [facility] | | | | 2010 | Encounter | MED CTR GENERIC OP | | | | | | CONV DEPT [address] | | | | | | [place], | | | | | | [place] [address] | | | | | | [phone] | | | +--------+ + + + [...]
--- OUTSIDE RECORDS SUMMARY | ~2020-03-25 | XMS | Encounter Summary ---
Demographics + + + | Address | [address] | | | [place] [address] | + + + | Home Phone | | + + + | Preferred Language | Unknown | + + + | Marital Status | Single | + + + | Denominational Affiliation | CHR | + + + [...] Team Providers + +------+ + | Care Playground Monitor Name | Role | Phone | + [...] For Records | | 2016 | | [place] [address] | MD | | | | | [address] | | | | | | Mailcode: [place] | | | | | | for Health and | | | | | | [facility], [facility] 2 | | | | | | [place], [place] | | | | | | [address] | | | | | | [phone] | | | +--------+ + + + [...]
--- OUTSIDE RECORDS SUMMARY | ~2020-03-25 | XMS | Encounter Summary ---
Demographics + + + | Address | [address] | | | [place] [address] | + + + | Home Phone | | + + + | Preferred Language | Unknown | + + + | Marital Status | Single | + + + | Caodaism Affiliation | CHR | + + + [...] Team Providers + +------+ + | Care Waste Specialist Name | Role | Phone | [...] [address] | | | | | | [place], [place] | | | | | | [address] | | | +--------+ + + + [...] Giordano S - 11/25/2007 6:48 PM PST [id number] [place] [id number] Admission Date: 09/16/2007 Discharge Date: 09/20/2007 Staff Physician: Bea Parks M.D. The patient was admitted to the [facility] Surgery Service. Principal Final Diagnosis: [...] his hospital admission. He was transitioned off GROOVER RUNNER to oral pain medications. His diet was [...] weeks. Dimitrios Giordano M.D. Bea Parks M.D. [facility] / [id number] / [id number] / [id number] / Reviewed or Edited By Dimitrios Giordano M.D. on 09-29-2007 Electronically signed by Bea Parks 11-25-2007 03:43:16 PM documented in this enco unter Plan of Treatment Not on filedocumented as of this encounter Visit Diagnoses Not on filedocumented in this encounter"
--- OUTSIDE RECORDS SUMMARY | ~2020-03-25 | XMS | Encounter Summary ---
Demographics + + + | Address | [address] | | | [place] [address] | + + + | Home Phone [...] Team Providers + +------+ + | Care Nurse Orthopedic Name | Role | Phone | + [...] Medication Refill | | 2014 | | [place] [address] | | | | | | [address] | | | | | | Mailcode: [place] | | | | | | [facility] Health and | | | | | | [facility] 2 | | | | | | [place], [place] | | | | | | [address] | | | | | | [phone] | | | +--------+ + + + [...]
--- OUTSIDE RECORDS SUMMARY | ~2020-03-25 | XMS | Encounter Summary ---
Demographics + + + | Address | [address] | | | [place] [address] | + + + | Home Phone | | + + + | Preferred Language | Unknown | + + + | Marital Status | Single | + + + | Mormonism Affiliation | 1013 | + + + | Race | Unknown | + + + | Ethnic Group | Unknown | + + + Author + + + | Author | [facility] | | | and [place] | + + + | Organization | [facility] | | | and [place] [...] Team Providers + +------+ + | Care Acid Purifier Name | Role | Phone | + [...] 2012 | | GASTROENTEROLOGY | [address] | | | | | [address] [place] | [address] [place], | | | | | [address] [place], [place] | [place] [address] | | | | | [address] | [phone] | | | | | [phone] | | | +--------+ + + + [...]
--- OUTSIDE RECORDS SUMMARY | ~2020-03-25 | XMS | Encounter Summary ---
Demographics + + + | Address | [address] | | | [place] [address] | + + + | Home Phone [...] Providers + +------+ + | Care Shop Welder Name | Role | Phone | + +------+ + | Meagahn Zhong MD | PCP | | + [...] For Records | | 2016 | | [place] [address] | MD | | | | | [address] | | | | | | Mailcode: [facility] | | | | | | for Health and | | | | | | [facility], [facility] 2 | | | | | | [place], [place] | | | | | | [address] | | | | | | [phone] | | | +--------+ + + + [...]
--- OUTSIDE RECORDS SUMMARY | ~2020-03-25 | XMS | Encounter Summary ---
Demographics + + + | Address | [address] | | | [place] [address] | + + + | Home Phone [...] Team Providers + +------+ + | Care Packing Room Worker Name | Role | Phone [...] | | 2016 | | Center at [facility] [address] | | management | | | | [address] | | | | | | Mailcode: Center | | | | | | for Health and | | | | | | Healing, Building 2 | | | | | | [place], [place] | | | | | | [address] | | | | | | [phone] | | | +--------+ + + + [...]
--- OUTSIDE RECORDS SUMMARY | ~2020-03-25 | XMS | Encounter Summary ---
Demographics + + + | Address | [address] | | | [place] [address] | + + + | Home Phone [...] + | Organization | [facility] | | | [...] Team Providers + +------+ + | Care Document Image Technician Name | Role | Phone | [...] | | | | | | | [place] | | | | | | | COLONOSCOPY, | | | | | | | DIAGNOSTIC | | | | | | | [place] | | | | | | | [...] + + | 04/14/ | Hospital | [facility] | Carmelo Patterson MD | Abdominal pain | | 2013 | Encounter | MED CTR MP INTRA OP | [address] | (Primary Dx); | | | | [address] | [place] | Crohn's disease, | | | | [place] | [address] | unspecified | | | | [address] | [phone] | complication (HCC) | | | | [phone] | | | +--------+ + + + [...] the physician who did your procedure at [phone] if you have any questions or experience any of the following: Increasing abdominal pain, nausea, or vomiting. Chills and fever over 101F. New abdominal swelling or bloating. Signs of rectal bleeding (black or red stool. If you cannot get a hold of your physician, then call the [place] [facility] [phone] . If necessary, report to the Emergency Department at [facility]. Quit smoking: If you smoke or [...] Date Crohn's disease (HCC) hospitalized 11/03/12-11/07/12 at [facility] for crohn's flare Asthma Hypothyroidism Hx [...] this e ncounter Procedure Notes ONLATONIA SCAN [facility] - 04/18/2014 12:00 AM PDTAssociated Order(s): PATHOLOGY - EXTERNAL SCANEle ctronically signed by Chandra Macdonald at 04/19/2014 4:06 PM PDTONBASE SCAN [facility] - 04/14/2014 1 2:00 AM PDTAssociated Order(s): PATHOLOGY - EXTERNAL SCAN NLATONIA SCAN [facility] - 04/14/2014 12:00 AM PDTAssociated Order(s): COLONOSCOPY NBASE SCAN [facility] - 04/14/2014 12:00 AM PDTAssociated Order(s): EGDElectronically signed by Chandra Macdonald at 12:36 PM PDTdocumented in this encounter Miscellaneous Notes Miscellaneous - ONBASE SCAN [facility] - 04/20/2014 12:00 AM PDT lan of Care - ONBASE SCAN [facility] - 04/17/2014 12:00 AM PDTElec tronically signed by [facility] at 04/17/2014 11:53 AM PDTPlan of Care - ONBASE SCAN [facility] - 04/17/2014 12:00 AM PDT is cellaneous - ONBASE SCAN [facility] - 04/17/2014 12:00 AM PDT iscellaneous - ONBASE SCAN [facility] - 04/17/2014 12:00 AM PDTElectro nically signed by latonia [facility] at 04/17/2014 11:53 AM PDTdocumented [...] | PROVATION | | 04/14/2014 11:49 AMMRN: [id number] #: [id number] of : | | | 1970Admit Type: AmbulatoryAge: 43Room: [facility] 02Gender: MaleNote | | | Status: FinalizedAttending MD: Carmelo Patterson, [facility]cedure: | | | Upper GI endoscopyIndications: Epigastric abdominal pain, | | | Nausea with vomitingProviders: Carmelo Patterson MD, | | | Monique Ling RN, Johana | | | ADITI Jerez, RUBY NORTON, Ferry Hand, Ashwin Wright MD | | | (Anesthesia [...] the anesthesiologist and the | | | compressor technician in the pre-procedure area in the [...] On: 04/14/2014 11:49 AM | | | [facility], [address] [place] [address] | | | [address] | | | - Normal esophagus. | [...] On: 04/14/2014 11:49 AM | | | [facility], [address] [place] [address] | | | [address] | | + + -+ + + [...] Rachid Burkscedkim Date: | PROVATION | | 04/14/2014 11:47 AMMRN: [id number] #: [id number] of : | | | 1970Admit Type: AmbulatoryAge: 43Room: [facility] 02Gender: MaleNote | | | Status: FinalizedAttending MD: Carmelo Patterson, [facility]cedure: | | | ColonoscopyIndications: Abdominal painProviders: | | | Carmelo Patterson MD, Monique Ling RN, Johana | | | ADITI Jerez, RUBY NORTON, Ferry Hand, Ashwin | | | MD Adriana (Anesthesia [...] the anesthesiologist and the | | | compressor technician in the pre-procedure area in the [...] On: 04/14/2014 | | | 11:47 AM [facility], [address], | | | [place] [address] | | | colon. No specimens collected. [...] On: 04/14/2014 11:47 AM | | | [facility], [address], [place], [place] | | | [address] | | + + -+ + + [...] 1:05 | | | Arm | | 7/18/14 at 1330, For 1 dose, May | [...]
--- OUTSIDE RECORDS SUMMARY | ~2020-03-25 | XMS | Encounter Summary ---
Demographics + + + | Address | [address] | | | [place] [address] | + + + | Home Phone | | + + + | Preferred Language | Unknown | + + + | Marital Status | Single | + + + | Presybeterian Affiliation | CHR | + + + [...] Team Providers + +------+ + | Care Third Rigger Name | Role | Phone | + [...] Medication Question | | 2015 | | [place] [address] | MD | | | | | [address] | | | | | | Mailcode: [place] | | | | | | [facility] Health and | | | | | | [place], [facility] 2 | | | | | | [place], [place] | | | | | | [address] | | | | | | [phone] | | | +--------+ + + + [...]
--- OUTSIDE RECORDS SUMMARY | ~2020-03-25 | XMS | Encounter Summary ---
Demographics + + + | Address | [address] | | | [place] [address] | + + + | Home Phone [...] + +------+ + | Care Director Of Automation Name | Role | Phone | + [...] | | 2017 | | Center at [facility] [address] | | | | | | [address] | | | | | | Mailcode: Center | | | | | | for Health and | | | | | | [facility], Building 2 | | | | | | [place], [place] | | | | | | [address] | | | | | | [phone] | | | +--------+ + + + [...]
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
--- OUTSIDE RECORDS SUMMARY | ~2020-03-25 | XMS | Encounter Summary ---
Demographics + + + | Address | [address] | | | [place] [address] | + + + | Home Phone [...] | Organization | [facility] | [...] Team Providers + +------+ + | Care Salvage Cutter Name | Role | Phone | + +------+ + | Emily Green DO | PCP | | + +------+ + Encounter Details +--------+ + + + + | Date | Type | Department | Care Team | Description | +--------+ + + + + | 01/08/ | [facility] | [facility] | Shirley Frankel, | | | 2016 | Encounter | [facility] | RESOURCE MANAGER FORESTER [address] | | | | | MEDICAL CLINIC [address] | [address] [facility] [place] | | | | | [address] [facility], | [address] | | | | | [place] [address] | | | | | | [phone] | | | +--------+ + + + [...]
--- OUTSIDE RECORDS SUMMARY | ~2020-03-25 | XMS | Encounter Summary ---
Demographics + + + | Address | [address] | | | [place] [address] | + + + | Home Phone [...] Team Providers + +------+ + | Care Services Engineer Name | Role | Phone | [...] Medical Records | | 2015 | | [place] [address] | | Review | | | | [address] | | | | | | Mailcode: [place] | | | | | | [facility] and | | | | | | [facility] 2 | | | | | | [place], [place] | | | | | | [address] | | | | | | [phone] | | | +--------+ + + + [...]
--- OUTSIDE RECORDS SUMMARY | ~2020-03-25 | XMS | Encounter Summary ---
Demographics + + + | Address | [address] | | | [place] [address] | + + + | Home Phone [...] Providers + +------+ + | Care Information Services Tech Name | Role | Phone | + [...] Refill Request | | 2015 | | [place] [facility] [address] | | | | | | [address] | | | | | | Mailcode: [place] | | | | | | for Health and | | | | | | Healing, Building 2 | | | | | | [place], [place] | | | | | | [address] | | | | | | [phone] | | | +--------+--------+ + + + [...]
--- OUTSIDE RECORDS SUMMARY | ~2020-03-25 | XMS | Encounter Summary ---
Demographics + + + | Address | [address] | | | [place] [address] | + + + | Home Phone [...] + + + | Author | [facility] | + + + | Organization | [facility] | + + + | Address | Unknown | + + + | Phone | Unavailable | + + + Support + + +---------+ + | Name | Relationship | Address | Phone | + + +---------+ + | Thalia Armani | ECON | Unknown | | + + +---------+ + Care Team Providers + +------+ + | Care Rubber Goods Tester Name | Role | Phone | + +------+ + | Meaghan Zhong MD | PCP | | + +------+ + Encounter Details +--------+ + + + + | Date | Type | Department | Care Team | Description | +--------+ + + + + | 09/30/ | Telephone | Digestive Health | Bea Parks MD | | | 2007 | | [place] at [facility] [address] | [address] | | | | | [address] | [place], | | | | | Mailcode: [place] | [place] [address] | | | | | [facility] and | [phone] | | | | | [facility], [facility] 2 | | | | | | [place], [place] | | | | | | [address] | | | | | | [phone] | | | +--------+ + + + [...]
--- OUTSIDE RECORDS SUMMARY | ~2020-03-25 | XMS | Encounter Summary ---
Demographics + + + | Address | [address] | | | [place] [address] | + + + | Home Phone | | + + + | Preferred Language | Unknown | + + + | Marital Status | Single | + + + | Anabaptist Affiliation | CHR | + + + [...] + +------+ + | Care Digital Account Supervisor Name | Role | Phone | + +------+ + | Meaghan Zhong MD | PCP | | + +------+ + Reason for Visit + + + | Reason | Comments | + + + | Medical Records | 04/09/2016 EGD/Colonoscopy reports and Pathology report - | | Review | [place] | + + + Encounter Details +--------+ + + + + | Date | Type | Department | Care Team | Description | +--------+ + + + + | 04/18/ | Abstract | Digestive Health | [address], | Medical Records | | 2016 | | Center at [facility] [address] | MD | Review (04/09/2016 | | | | [address] | | EGD/Colonoscopy | | | | Mailcode: Center | | reports and | | | | for Health and | | Pathology report - | | | | Ayaz [facility] 2 | | [facility] | | | | [place], [place] | | [address] | | | | [address] | | | | | | [phone] | | | +--------+ + + + [...]
--- OUTSIDE RECORDS SUMMARY | ~2020-03-25 | XMS | Encounter Summary ---
Demographics + + + | Address | [address] | | | [place] [address] | + + + | Home Phone [...] Team Providers + +------+ + | Care Physician Intensivist Name | Role | Phone | + +------+ + | Meaghan Zhong MD | PCP | | + +------+ + Encounter Details +--------+---------+ + + + | Date | Type | Department | Care Team | Description | +--------+---------+ + + + | 09/15/ | Office | Preoperative | 1, [facility] Director Cloud Transformation [address] | Other Complication | | 2006 | Visit | Medicine Clinic at | [address] | of Colostomy or | | | | [facility] 4th Floor [address] | [place] [address] | Enterostomy; Crohns | | | | [address] | | Disease (HCC); Other | | | | Mailcode: [facility] | | Specified | | | | [place] for [facility] | | Pre-Operative | | | | and Healing, | | Examination; | | | | Building 1,4th Floor | | Hemorrhagic Disorder | | | | [place], [place] | | due to Intrinsic | | | | [address] | | Circulating | | | | [phone] | | Anticoagulants | +--------+---------+ + + [...] | + + + + + | [facility] DEPARTMENT OF | [address] | [place] [address] | | | PATHOLOGY | [address] | | | + + + + + | [place] DEPARTMENT OF | [address] | [place] [address] | | | PATHOLOGY | [address] [...] | + + + + + | [facility] DEPARTMENT OF | [address] | [place] [address] | | | PATHOLOGY | [address] | | | + + + + + | [facility] DEPARTMENT | [address] | [place] [address] | | | PATHOLOGY | [address] [...] | + + + + + | [facility] | [address] | [place] [address] | | | PATHOLOGY | [address] | | | + + + + + | [facility] | [address] | [place] [address] | | | PATHOLOGY | [address] [...] DEPARTMENT OF | [address] | [place] [address] | | | PATHOLOGY | [address] | | | + + + + + | [facility] DEPARTMENT OF | [address] | [place] [address] | | | PATHOLOGY | [address] [...] Performed At | + + + | [id number] Estimated GFR > 60 mL/min/1.73 sq m if non- | [facility] | | [id number] Estimated GFR > 60 mL/min/1.73 sq m [...] | + + + + + | [facility] | [address] | [place] [address] | | | PATHOLOGY | [address] | | | + + + + + | [facility] | [address] | [place] [address] | | | PATHOLOGY | [address] [...] + + + + | PRODUCT | [id number] | | [facility] | | | UNIT [...] DEPARTMENT OF | [address] | [place] [address] | | | PATHOLOGY | [address] | | | + + + + + | [facility] | [address] | [facility] [place] [address] | | | PATHOLOGY | [address] | | | + + + [...]
--- OUTSIDE RECORDS SUMMARY | ~2020-03-25 | XMS | Encounter Summary ---
Demographics + + + | Address | [address] | | | [place] [address] | + + + | Home Phone [...] Team Providers + +------+ + | Care Vp Of Global Marketing Name | Role | Phone | + +------+ + | Meaghan Zhong MD | PCP | | + +------+ + Encounter Details +--------+ + + + + | Date | Type | Department | Care Team | Description | +--------+ + + + + | 09/30/ | Telephone | Digestive Health | Bea Parks MD | | | 2007 | | [place] at [facility] [address] | [address] | | | | | [address] | [place], | | | | | Mailcode: [place] | [place] [address] | | | | | [facility] and | [phone] | | | | | [facility], [facility] 2 | | | | | | [place], [place] | | | | | | [address] | | | | | | [phone] | | | +--------+ + + + [...]
--- OUTSIDE RECORDS SUMMARY | ~2020-03-25 | XMS | Encounter Summary ---
Demographics + + + | Address | [address] | | | [place] [address] | + + + | Home Phone [...] | Organization | [facility] | | | and [place] | [...] + +------+ + | Care Inside Sales Consultant Name | Role | Phone [...] | | | CENTER [address] | [facility] | | | | | [address] [place], [place] | [place] [address] | | | | | [address] | [phone] | | | | | [phone] | | | +--------+ + + + [...]
--- OUTSIDE RECORDS SUMMARY | ~2020-03-25 | XMS | Encounter Summary ---
Demographics + + + | Address | [address] | | | [place] [address] | + + + | Home Phone [...] | [facility] [...] Team Providers + +------+ + | Care Engineer Geophysical Laboratory Name | Role | Phone | + +------+ + PCP | Unavailable | + +------+ + Encounter Details +--------+ + + + + | Date | Type | Department | Care Team | Description | +--------+ + + + + | 03/21/ | Hospital | [facility] | | | | 2008 | Encounter | MED CTR GENERIC OP | | | | | | CONV DEPT [address] | | | | | | [place], | | | | | | [place] [address] | | | | | | [phone] | | | +--------+ + + + [...]
--- OUTSIDE RECORDS SUMMARY | ~2020-03-25 | XMS | Encounter Summary ---
Demographics + + + | Address | [address] | | | [place] [address] | + + + | Home Phone [...] | Located Within [facility] [...] Providers + +------+ + | Care Project Architect Name | Role | Phone | [...] | | | [address] [place] | [address] | | | | | [address] | [phone] | | | | | [phone] | | | +--------+ + + + [...]
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
--- OUTSIDE RECORDS SUMMARY | ~2020-03-25 | XMS | Encounter Summary ---
Demographics + + + | Address | [address] | | | [place] [address] | + + + | Home Phone [...] Team Providers + +------+ + | Care Catering Associate Name | Role | Phone | [...] Medication Question | | 2015 | | [place] [id number] | MD | | | | | [address] | | | | | | Mailcode: [place] | | | | | | [facility] and | | | | | | Ayaz, [facility] 2 | | | | | | [place], [place] | | | | | | [address] | | | | | | [phone] | | | +--------+ + + + [...]
--- OUTSIDE RECORDS SUMMARY | ~2020-03-25 | XMS | Encounter Summary ---
Demographics + + + | Address | [address] | | | [place] [address] | + + + | Home Phone [...] Organization | [facility] | | | [...] Team Providers + +------+ + | Care Engine Tester Name | Role | Phone | [...] [address] [place] | [place] [address] | | | | | [place], [place] | [phone] | | | | | [address] | | | | | | [phone] | | | +--------+ + + + [...]
--- OUTSIDE RECORDS SUMMARY | ~2020-03-25 | XMS | Encounter Summary ---
Demographics + + + | Address | [address] | | | [place] [address] | + + + | Home Phone [...] Team Providers + +------+ + | Care Trackman Name | Role | Phone | + [...] | Other | | 2015 | | [place] at [facility] 15[address] | | | | | | [address] | | | | | | Mailcode: Center | | | | | | for Health and | | | | | | [facility], [facility] 2 | | | | | | [place], [place] | | | | | | [address] | | | | | | [phone] | | | +--------+ + + + [...]
--- OUTSIDE RECORDS SUMMARY | ~2020-03-25 | XMS | Encounter Summary ---
Demographics + + + | Address | [address] | | | [place] [address] | + + + | Home Phone [...] Team Providers + +------+ + | Care Martial Arts Instructor Name | Role | Phone | + +------+ + | Meaghan Zhong MD | PCP | | + +------+ + Reason for Visit +--------+ + | Reason | Comments | +--------+ + | Other | Pt Dismissed from [facility] | +--------+ + Encounter Details +--------+ + + + + | Date | Type | Department | Care Team | Description | +--------+ + + + + | 06/19/ | Telephone | Digestive Health | [address], | Other (Pt Dismissed | | 2017 | | Center at [address] | MD | from [facility]) | | | | [address] | | | | | | Mailcode: Center | | | | | | for Health and | | | | | | [facility], Building [address] | | | | | | [place], [place] | | | | | | [address] | | | | | | [phone] | | | +--------+ + + + [...]
--- OUTSIDE RECORDS SUMMARY | ~2020-03-25 | XMS | Encounter Summary ---
Demographics + + + | Address | [address] | | | [place] [address] | + + + | Home Phone [...] Team Providers + +------+ + | Care Guest Relations Coordinator Name | Role | Phone | [...] Medical Records | | 2015 | | [place] [address] | | Review | | | | [address]one | | | | | | Mailcode: [place] | | | | | | [facility] and | | | | | | [facility] 2 | | | | | | [place], [place] | | | | | | [address] | | | | | | [phone] | | | +--------+ + + + [...]
--- OUTSIDE RECORDS SUMMARY | ~2020-03-25 | XMS | Encounter Summary ---
Demographics + + + | Address | [address] | | | [place] [address] | + + + | Home Phone [...] Providers + +------+ + | Care Machine Set Up Technician Name | Role | Phone | [...] | | 2017 | | Center at [facility] 3485 | MD | From Patient (Letter | | | | [address] | | from patient) | | | | Mailcode: Center | | | | | | for Health and | | | | | | Healing, Building 2 | | | | | | [place], [place] | | | | | | [address] | | | | | | [phone] | | | +--------+ + + + [...]
--- OUTSIDE RECORDS SUMMARY | ~2020-03-25 | XMS | Encounter Summary ---
Demographics + + + | Address | [address] | | | [place] [address] | + + + | Home Phone | | + + + | Preferred Language | Unknown | + + + | Marital Status | Single | + + + | Methodist Affiliation | CHR | + + + [...] Providers + +------+ + | Care Floor Associate Name | Role | Phone | [...] Refill Request | | 2015 | | [place] [facility] 0573 | | | | | | [address] | | | | | | Mailcode: [facility] | | | | | | for Health and | | | | | | Healing, Building 2 | | | | | | [place], [place] | | | | | | [address] | | | | | | [phone] | | | +--------+--------+ + + + [...]
--- OUTSIDE RECORDS SUMMARY | ~2020-03-25 | XMS | Encounter Summary ---
Demographics + + + | Address | [address] | | | [place] [address] | + + + | Home Phone [...] + | Organization | [facility] | | [...] Team Providers + +------+ + | Care Torch Heater Name | Role | Phone | + [...] | | | | disease of | [address] | | | | | | large | St Pav [address] | | | | | | intestine | 2nd Fl Pod 2 | | | | | | with | and 3 | | | | | | unspecified | Andrew | | | | | | complication | [place], [place] | | | | | | s ([facility]) | [address] | | | | | | Procedures | Phone: | | | | | | CT Abdomen | [phone] | | | | | | Pelvis w | Fax: | | | | | | Contrast | [phone] | | +--------+--------+ + + + + [...] | | | | disease of | [address] | | | | | | large | St Pav D | | | | | | intestine | 2nd Fl Pod 2 | | | | | | with | and 3 | | | | | | unspecified | Andrew | | | | | | complication | [place], [place] | | | | | | s ([facility]) | [address] | | | | | | Procedures | Phone: | | | | | | CT Abdomen | [phone] | | | | | | Pelvis w | Fax: | | | | | | Contrast | [phone] | | +--------+--------+ + + + + Encounter Details +--------+ + + + + | Date | Type | Department | Care Team | Description | +--------+ + + + + | 05/09/ | Hospital | [facility] | [address], | Crohn's disease of | | 2016 | Encounter | MED [facility] [address] | MD [address] [facility] | large intestine with | | | | [place], | Pav D 2nd Fl Pod 2 | unspecified | | | | [place] [address] | and [address] [place], | complications (HCC) | | | | [phone] | [place] [address] | | | | | | [phone] | | | | | | | [...]
--- OUTSIDE RECORDS SUMMARY | ~2020-03-25 | XMS | Encounter Summary ---
Demographics + + + | Address | [address] | | | [place] [address] | + + + | Home Phone [...] Team Providers + +------+ + | Care Sanitation Superintendent Name | Role | Phone | [...] Rd | | | | | | [place], [place] | | | | | | [address] | | | +--------+ + + + [...] Giordano S - 11/25/2007 6:48 PM PST [id number] [place] [id number] Admission Date: 09/16/2007 Discharge Date: 09/20/2007 Staff Physician: Bea Parks M.D. The patient was admitted to the [facility] Surgery Service. Principal Final Diagnosis: Unwanted colostomy. [...] his hospital admission. 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 His diet was [...] weeks. Dimitrios Giordano M.D. Bea Parks M.D. [facility] / [id number] / [id number] / [id number] / Reviewed or Edited By Dimitrios Giordano M.D. on 09-29-2007 Electronically signed by Bea Parks 11-25-2007 03:43:16 PM documented in this enco unter Plan of Treatment Not on filedocumented as of this encounter Visit Diagnoses Not on filedocumented in this encounter"
--- OUTSIDE RECORDS SUMMARY | ~2020-03-25 | XMS | Encounter Summary ---
Demographics + + + | Address | [address] | | | [place] [address] | + + + | Home Phone [...] Providers + +------+ + | Care Twister Frame Tender Name | Role | Phone | [...] from Patient | | 2017 | | [place] at [facility] 5613 | MD | | | | | [address] | | | | | | Mailcode: [place] | | | | | | for Health and | | | | | | [facility], [facility] 2 | | | | | | [place], [place] | | | | | | [address] | | | | | | [phone] | | | +--------+ + + + [...]
--- OUTSIDE RECORDS SUMMARY | ~2020-03-25 | XMS | Encounter Summary ---
Demographics + + + | Address | [address] | | | [place] [address] | + + + | Home Phone [...] Organization | [facility] | | | [...] Team Providers + +------+ + | Care Social Secretary Name | Role | Phone | [...] Encounter | HOSPITAL EMERGENCY | MD [address] | | | | | CENTER [address] | Graciela Juarez | | | | | [address] [place] | [place] [address] | | | | | [address] | [phone] | | | | | [phone] | | | +--------+ + + + [...] by mouth | | 0 | | 02/18/201 | | (SINGULAIR) 10 mg | nightly. [...]
--- OUTSIDE RECORDS SUMMARY | ~2020-03-25 | XMS | Encounter Summary ---
Demographics + + + | Address | [address] | | | [place] [address] | + + + | Home Phone [...] Team Providers + +------+ + | Care Personnel Assistant Name | Role | Phone | [...] | | | | | | Mailcode: [place] | | | | | | [facility] and | | | | | | [facility] 2 | | | | | | [place], [place] | | | | | | [address] | | | | | | [phone] | | | +--------+ + + + [...]
--- OUTSIDE RECORDS SUMMARY | ~2020-03-25 | XMS | Encounter Summary ---
Demographics + + + | Address | [address] | | | [place] [address] | + + + | Home Phone [...] | [facility] | | [...] Providers + +------+ + | Care Coal Hauler Name | Role | Phone | + [...] | | CENTER [address] | [facility] | | | | | [address] [place], [place] | [place] [place] [address] | | | | | [address] | [phone] | | | | | [phone] | | | +--------+ + + + [...]
--- OUTSIDE RECORDS SUMMARY | ~2020-03-25 | XMS | Encounter Summary ---
Demographics + + + | Address | [address] | | | [place] [address] | + + + | Home Phone [...] Organization | [facility] | [...] Team Providers + +------+ + | Care Imaging Analyst Name | Role | Phone | [...] | | | [address] [facility] | [place], [place] | Crohn's disease, | | | | [address] | [address] | unspecified | | | | [address] | [phone] | complication (HCC) | | | | [phone] | | | +--------+ + + + [...]
--- OUTSIDE RECORDS SUMMARY | ~2020-03-25 | XMS | Encounter Summary ---
Demographics + + + | Address | [address] | | | [place] [address] | + + + | Home Phone [...] | [facility] | | | [...] Team Providers + +------+ + | Care System Development Manager Name | Role | Phone | [...] + + | 11/07/ | Telephone | [facility] | Carmelo Patterson MD | Other (Reschedule | | 2014 | | GASTROENTEROLOGY | [address] | procedure) | | | | [address] [facility] | [place], [place] | | | | | [address] [place], [place] | [address] | | | | | [address] | [phone] | | | | | [phone] | | | +--------+ + + + [...]
--- OUTSIDE RECORDS SUMMARY | ~2020-03-25 | XMS | Encounter Summary ---
Demographics + + + | Address | [address] | | | [place] [address] | + + + | Home Phone [...] | [facility] | | [...] Providers + +------+ + | Care Electro Plater Name | Role | Phone | + +------+ + | No, Physician | PCP | Unavailable | + +------+ + Encounter Details +--------+ + + + + | Date | Type | Department | Care Team | Description | +--------+ + + + + | 11/17/ | Hospital | [facility] | Emily Green, | | | 2014 | Encounter | [facility] | DO [address] | | | | | MEDICAL CLIN[facility] [address] | [place] [address] | | | | | [address] [place], | [phone] | | | | | [place] [address] | | | | | | [phone] | | | +--------+ + + + [...]
--- OUTSIDE RECORDS SUMMARY | ~2020-03-25 | XMS | Encounter Summary ---
Demographics + + + | Address | [address] | | | [place] [address] | + + + | Home Phone [...] | [facility] | | | and [place] [...] Team Providers + +------+ + | Care Auto Damage Adjuster Name | Role | Phone | [...] + + | 05/17/ | Telephone | [facility] | Carmelo Patterson MD | Appointment (move up | | 2013 | | GASTROENTEROLOGY | [address] | colonoscopy) | | | | [address] [facility] | [place], [place] | | | | | [address] [place], [place] | [address] | | | | | [address] | [phone] | | | | | [phone] | | | +--------+ + + + [...]
--- OUTSIDE RECORDS SUMMARY | ~2020-03-25 | XMS | Encounter Summary ---
Demographics + + + | Address | [address] | | | [place] [address] | + + + | Home Phone [...] | Organization | [facility] | | [...] Team Providers + +------+ + | Care Sonar Technician Name | Role | Phone | [...] | [address], [place] | [place] [address] | | | | | [address] | [phone] | | | | | [phone] | | | +--------+ + + + [...]
--- OUTSIDE RECORDS SUMMARY | ~2020-03-25 | XMS | Encounter Summary ---
Demographics + + + | Address | [address] | | | [place] [address] | + + + | Home Phone [...] Organization | [facility] | | | and [...] Team Providers + +------+ + | Care Bench Worker Apprentice Name | Role | Phone | [...] Refill | | 2017 | | [facility] | DO [address] | | | | | MEDICAL CLINIC [address] | [place] [address] | | | | | [address] [place], | [phone] | | | | | [place] [address] | | | | | | [phone] | | | +--------+--------+ + + + [...]
--- OUTSIDE RECORDS SUMMARY | ~2020-03-25 | XMS | Encounter Summary ---
Demographics + + + | Address | [address] | | | [place] [address] | + + + | Home Phone [...] Organization | [facility] | [...] Team Providers + +------+ + | Care Rate Analyst Name | Role | Phone | [...] | | | | [address] [facility] | [place], [place] | | | | | [address] | [address] | | | | | [address] | [phone] | | | | | [phone] | | | +--------+ + + + [...]
--- OUTSIDE RECORDS SUMMARY | ~2020-03-25 | XMS | Encounter Summary ---
Demographics + + + | Address | [address] | | | [place] [address] | + + + | Home Phone [...] | Organization | [facility] [...] Team Providers + +------+ + | Care Client Liaison Name | Role | Phone | [...] | | | disease | | [address] | | | | | without | | [place]em [place], | | | | | complication | | [place] [address] | | | | | , | | Phone: | | | | | unspecified | | [phone] | | | | | gastrointest | | Fax: | | | | | inal tract | | [phone] | | | | | location | [...] | | | | | | | [place] | | | | | | | COLONOSCOPY | | | | | | | FLX DX | | | | | | | W/COLLJ SPEC | | | | | | | WHEN PFRMD | | | | | | | [place] | | | | | | | [...] + + | 04/09/ | Surgery | [facility] | Carmelo Patterson MD | EGD / COLONOSCOPY | | 2016 | | MED CTR MP INTRA OP | [address] | | | | | [address] | [place] | | | | | [place] | [address] | | | | | [address] | [phone] | | | | | [phone] | | | +--------+---------+ + + + [...] the physician who did your procedure at [phone] if you have any questions or experience any of the following: ? Increasing abdominal pain, nausea, or vomiting. ? Chills and fever over 101F. ? New abdominal swelling or bloating. ? Signs of rectal bleeding (black or red stool). If you cannot get a hold of your physician, then call the [facility] [phone] . If necessary, report to the Emergency Department at [facility]. Quit smoking: If you smoke or [...] Date Crohn's disease (HCC) hospitalized 11/03/12-11/07/[address] [facility] for crohn's flare Asthma Hypothyroidism [...] Laterality: N/A; Surgeon: Carmelo Patterson MD; Location: [facility] MEDICAL PROC[facility]URE UN[facility] Colonoscopy N/A 11/16/2014 Procedure: COLONOSCOPY; Surgeon: Carmelo Patterson MD; Location: [facility] PROC[facility]I T HOME MEDS: [...] Electronically Signed by: Carmelo Patterson MD 04/08/2016 [facility] Portions of this chart may have been created with [employer] voice recognition software. Occasi onal wrong-word or [...] Endoscopy Patient: Rachid Glez : 1970 Acct: [id number] Exam Date: Saturday, April 09, 2016 Doctor: Carmelo Patterson MD The chances of difficulty following this procedure are minimal. The following instruction s will assist you in your recovery. 1. Do Not eat or drink anything for 1 hour. Try sips of water first. If tolerated, resu me your regular diet or one recommended by your physician. 2. Do not drive, operate wally merry, make critical decisions, or do activities that [...] Ext [phone]. If [facility] call [facility] Emergency Department at Ext. [phone] Your doctor [...] Exams Patient: Rachid Glez : 1970 Acct: [id number] Exam Date: Saturday, April 09, 2016 Doctor: [...] may reach your physician at Work: Ext [phone]. If unable to reach your p sadiean, call [facility] Emergency Department at Ext. [phone] Your doctor [...] has been given to the patient/escort. Nurse Signatliliam e Patient Signature Carmelo Patterson MD 04/09/2016 [...] | PROVATION | | 04/09/2016 9:17 AMMRN: [id number] #: [id number] of : | | | 1970Admit Type: AmbulatoryAge: 45Room: [facility] 02Gender: MaleNote | | | Status: FinalizedAttending MD: Carmelo Patterson, [facility]cedure: | | | Upper GI endoscopyIndications: Nausea with | | | vomitingProviders: Carmelo Patterson MD, Nini | | | ADITI Stewart, Kaylen Hernandez RN, [place] | | | Stepan, Space Operations Officer, Nima Lynn MD | | | [...] the | | | anesthesiologist and the central sterile supply technician in the pre-procedure area in the [...] AMScope Out: 9:46:40 AM | | | [facility], [facility] [address] [place], [place] | | | [address] | | | instructions were provided to [...] |Scope Out: 9:46:40 AM | | | [facility], [address] [place], [place] | | | [address] | | + + -+ + +---------+ [...] | PROVATION | | 04/09/2016 9:15 AMMRN: [id number] #: [id number] of : | | | 1970Admit Type: AmbulatoryAge: 45Room: [facility] 02Gender: MaleNote | | | Status: FinalizedAttending MD: Carmelo Patterson, [facility]cedure: | | | ColonoscopyIndications: Follow-up of Crohn's disease of | | | the colonProviders: Carmelo Patterson MD, [facility] Hospitalkandice | | | ADITI Stewart, Kaylen Hernandez RN, Iraida | | | Stepan, Space Operations Officer, Nima Lynn MD | | | [...] the | | | anesthesiologist and the central sterile supply technician in the pre-procedure area in the [...] | | 9:53:11 AMScope Out: 10:24:[address] [facility] | | | [place], [address] [place] [address] | | | - High fiber diet [...] |Scope Out: 10:24:21 AM | | | [facility], [address], [place] | | | [address] | | + + -+ + +---------+ [...] | | | endoscopic correlation is recommended. ARW:[facility]:C2NR GROSS | | | DESCRIPTION: Received in nine parts. A. Received in formalin | | | labeled "[place]" and "duodenal bx" on the requisition are | | | eight pink-owens tissue fragments measuring from 0.1-0.7 cm, submitted, | | | all in (A1). B. Received in formalin labeled "[place]" | | | and "gastric bx" on the requisition are two pink-owens tissue fragments | | | measuring from 0.35-0.55 cm, submitted, all in (B1). C. Received | | | in formalin labeled "[place]" and "esophagus bx" on the | | | requisition are seven pink-owens tissue fragments measuring from | | | <0.1-0.4 cm, submitted, all in (C1). D. Received in formalin | | | labeled "[place]" and "right colon bx" on the requisition | | | are four pink-owens tissue fragments measuring from 0.2-0.5 cm, | | | submitted, all in (D1). | | | E. Received in formalin | | | labeled "[place]" and "transverse colon bx" on the | | | requisition are four pink-owens tissue fragments measuring from 0.4-0.6 | | | cm, submitted all into (E1). F. Received in formalin labeled | | | "[place]" and "descending colon bx" on the requisition are | | | five pink-ownes tissue fragments measuring from 0.1-0.8 cm, submitted, | | | all in (F1). G. Received in formalin labeled "[place]" | | | and "sigmoid colon bx" on the requisition are six pink-owens tissue | | | fragments measuring from 0.2-0.5 cm submitted, all in (G1). H. | | | Received in formalin labeled "[place]" and "rectal bx" on | | | the requisition are seven pink-owens tissue fragments measuring from | | | 0.25-0.5 cm, submitted, all in (H1). I. Received in formalin | | | labeled "[place]" and "sigmoid polyp bx" on the requisition | | | are five red-brown fragments measuring from 0.1-0.4 cm, submitted, all | | | in (I1). ka:CLR:[facility] PERFORMING LABORATORY: Tissue processing | | | and slide preparation were performed by [facility], [address] | [address], [place] [address] (Neon Electrician: Agusto | | | Jayda Mccracken CLIA#: [id number]). Professional interpretation was | | | performed by [facility], [address] | | | [place] [address] (Neon Electrician: Agusto Mccracken M.D.; CLIA#: | | | [id number]). Diagnostician: Ruiz Barrett DO Pathologist | | [...]
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
--- OUTSIDE RECORDS SUMMARY | ~2020-03-25 | XMS | Encounter Summary ---
Demographics + + + | Address | [address] | | | [place] [address] | + + + | Home Phone [...] + + + | Author | [facility] | | | and [place] | + + + | Organization | [facility] | | | and [...] Team Providers + +------+ + | Care Cage Unloader Name | Role | Phone | + [...] + + | 11/06/ | Telephone | [facility] | Carmelo Patterson MD | Other (IVCS or Prop) | | 2015 | | GASTROENTEROLOGY | [address] | | | | | [address] [facility] | [place], [place] | | | | | [address] [place] | [address] | | | | | [address] | [phone] | | | | | [phone] | | | +--------+ + + + [...] for his procedure with Dr Patterson this . Please call either his home or cell Zoondy yoseph this afternoon. docum ented in this encounter Plan of Treatment Not on filedocumented as of this encounter Visit Diagnoses Not on filedocumented in this encounter"
--- OUTSIDE RECORDS SUMMARY | ~2020-03-25 | XMS | Encounter Summary ---
Demographics + + + | Address | [address] | | | [place] [address] | + + + | Home Phone [...] Team Providers + +------+ + | Care Pack Changer Name | Role | Phone | + +------+ + | Meaghan Zhong MD | PCP | | + +------+ + Encounter Details +--------+ + + + + | Date | Type | Department | Care Team | Description | +--------+ + + + + | 04/28/ | Telephone | Digestive Health | [address], | | | 2016 | | [place] at [facility] [address] | | | | | | [address] | | | | | | Mailcode: [place] | | | | | | for Health and | | | | | | [facility], [address] | | | | | | [place], [place] | | | | | | [address] | | | | | | [phone] | | | +--------+ + + + [...]
--- OUTSIDE RECORDS SUMMARY | ~2020-03-25 | XMS | Encounter Summary ---
Demographics + + + | Address | [address] | | | [place] [address] | + + + | Home Phone [...] + + + | Author | [facility] | | | and [place] | + + + | Organization | [facility] | | [...] Team Providers + +------+ + | Care Microphone Operator Name | Role | Phone | + +------+ + | No, Physician | PCP | Unavailable | + +------+ + Encounter Details +--------+ + + + + | Date | Type | Department | Care Team | Description | +--------+ + + + + | 02/21/ | Hospital | [facility] | Emily Green, | | | 2014 | Encounter | [facility] | DO [address] | | | | | MEDICAL CLINIC [address] | [place] [address] | | | | | [address] [place], | [phone] | | | | | [place] [address] | | | | | | [phone] | | | +--------+ + + + [...]
--- OUTSIDE RECORDS SUMMARY | ~2020-03-25 | XMS | Encounter Summary ---
Demographics + + + | Address | [address] | | | [place] [address] | + + + | Home Phone [...] + | Organization | [facility] | | | and [...] Team Providers + +------+ + | Care Dye Reel Operator Name | Role | Phone | [...] | [address] | [place] [address] | | | | | [place], [place] | [phone] | | | | | [address] | | | | | | [phone] | | | +--------+ + + + [...] is moderate. Job #: | | | [id number] Read By: JEOVANY MIRELES MD Released By: [...] risk is | | moderate. Job #: [id number] Read By: JEOVANY MIRELES MD Released By: [...]
--- OUTSIDE RECORDS SUMMARY | ~2020-03-25 | XMS | Encounter Summary ---
Demographics + + + | Address | [address] | | | [place] [address] | + + + | Home Phone [...] | Organization | [facility] | [...] Team Providers + +------+ + | Care Risk Control Representative Name | Role | Phone | + +------+ + | No, Physician | PCP | Unavailable | + +------+ + Encounter Details +--------+ + + + + | Date | Type | Department | Care Team | Description | +--------+ + + + + | 05/18/ | [facility] | [place] | Clement Ventura | | | 2013 | Encounter | HOSPITAL EMERGENCY | MD [address] | | | | | CENTER [address] | [facility] | | | | | DR [place], [place] | [place] [address] | | | | | [address] | [phone] | | | | | [phone] | | | +--------+ + + + [...] - 1.030 | EXTERNAL | | | Energy, | | | LAB | | | [...]
--- OUTSIDE RECORDS SUMMARY | ~2020-03-25 | XMS | Encounter Summary ---
Demographics + + + | Address | [address] | | | [place] [address] | + + + | Home Phone [...] | Organization | [facility] | | | and [...] Team Providers + +------+ + | Care Log Deck Tender Name | Role | Phone | [...] | | | | | [address] | [address] [place] | | | | | [place] | [address] | | | | | [address] | | | | | | [phone] | Roque Watson | | | | | | MD Nichole [address] | | | | | | ST [place], [place] | | | | | | [address] | | | | | | [phone] | | | | | | | [...] EVALUATION Rachid Glez 43 y.o. male 1970 [id number] Procedure: Procedure(s):EGD / COLONOSCOPY Filed Vitals: 04/14/14 [...] signed by Ashwin Wright MD 04/14/2014 12:33 [facility] nesthesia P reprocedure Evaluation - Ashwin Wright MD - 04/13/2014 5:14 PM PDT ANESTHESIA PREANESTHESIA EVALUATION Rachid Glez 43 y.o. male 1970 [id number] Scheduled procedure EGD / COLONOSCOPY [EGDCOLO] - [...]
--- OUTSIDE RECORDS SUMMARY | ~2020-03-25 | XMS | Encounter Summary ---
Demographics + + + | Address | [address] | | | [place] [address] | + + + | Home Phone [...] Team Providers + +------+ + | Care Spice Cleaner Name | Role | Phone | [...] | | 2015 | | Center at [facility] [address] | MD | Review | | | | [address] | | (12/10-12/12/2015 St | | | | Mailcode: Center | | [facility] records) | | | | for Health and | | | | | | [facility], [facility] [address] | | | | | | [place], [place] | | | | | | [address] | | | | | | [phone] | | | +--------+ + + + [...]
--- OUTSIDE RECORDS SUMMARY | ~2020-03-25 | XMS | Encounter Summary ---
Demographics + + + | Address | [address] | | | [place] [address] | + + + | Home Phone [...] Providers + +------+ + | Care It Professional Name | Role | Phone | [...] | [address] | [place], | | | | | Mailcode: [place] | [place] [address] | | | | | [place], [place] | | | | | | [address] | | | | | | [phone] | | | +--------+ + + + [...]
--- OUTSIDE RECORDS SUMMARY | ~2020-03-25 | XMS | Encounter Summary ---
Demographics + + + | Address | [address] | | | [place] [address] | + + + | Home Phone [...] Providers + +------+ + | Care Insurance Legal Assistant Name | Role | Phone | [...] Medical Records | | 2015 | | [place] [address] | | Review | | | | [address] | | | | | | Mailcode: [place] | | | | | | [facility] and | | | | | | [facility] 2 | | | | | | [place], [place] | | | | | | [address] | | | | | | [phone] | | | +--------+ + + + [...]
--- OUTSIDE RECORDS SUMMARY | ~2020-03-25 | XMS | Encounter Summary ---
Demographics + + + | Address | [address] | | | [place] [address] | + + + | Home Phone [...] | [facility] [...] Team Providers + +------+ + | Care Track Laborer Name | Role | Phone | + +------+ + | Emily Green DO | PCP | | + +------+ + Encounter Details +--------+ + + + + | Date | Type | Department | Care Team | Description | +--------+ + + + + | 02/17/ | Hospital | [facility] | Emily Green, | | | 2016 | Encounter | [facility] | DO [address] [place] | | | | | MEDICAL CLINIC [address] | [facility] [place] [address] | | | | | [address] [place], | [phone] | | | | | [place] [address] | | | | | | [phone] | | | +--------+ + + + [...]
--- OUTSIDE RECORDS SUMMARY | ~2020-03-25 | XMS | Encounter Summary ---
Demographics + + + | Address | [address] | | | [place] [address] | + + + | Home Phone [...] Providers + +------+ + | Care Design Tech Name | Role | Phone | [...] from Patient | | 2017 | | [place] at [facility] [address] | MD | | | | | [address] | | | | | | Mailcode: [place] | | | | | | for Health and | | | | | | [facility], [facility] 2 | | | | | | [place], [place] | | | | | | [address] | | | | | | [phone] | | | +--------+ + + + [...]
--- OUTSIDE RECORDS SUMMARY | ~2020-03-25 | XMS | Encounter Summary ---
Demographics + + + | Address | [address] | | | [place] [address] | + + + | Home Phone [...] Organization | [facility] [...] Team Providers + +------+ + | Care Wad Lubricator Name | Role | Phone | + [...] + + | 11/16/ | Hospital | [facility] | Carmelo Patterson MD | Abdominal pain | | 2015 | Encounter | [facility] OP | [address] | (Primary Dx); | | | | [address] | [place] | Crohn's disease, | | | | [place] | [address] | without | | | | [address] | [phone] | complications (HCC) | | | | [phone] | | | +--------+ + + + [...] the physician who did your procedure at [phone] if you have any questions or experience any of the following: ? Increasing abdominal pain, nausea, or vomiting. ? Chills and fever over 101F. ? New abdominal swelling or bloating. ? Signs of rectal bleeding (black or red stool. If you cannot get a hold of your physician, then call the [facility] [phone] . If necessary, report to the Emergency Department at [facility]. Quit smoking: If you smoke [...] such as nuts, corn, popcorn a nd Panamanian vegetables. MEDICATIONS: For mild to moderate cramping [...] are coping with this illness. They are avgely vasquez in person, on the phone, or via the Internet. Contact the following resources for more information. Crohn s and Colitis Foundation of [employer] 877.417.9944 www.ccfa.org National Digestive Diseases Information Clearinghouse (NDDIC) 457.935.3538 www.digestive .niddk.nih.gov Get Prompt Medical Attention if any of the following occur: Fever of 100.4F(38C) or higher, or as directed by your healthcare provider Abdominal pain that does not respond to usual measures Mucus, pus or blood in the stool (dark or bright red) Repeated vomiting Abdominal swelling and pain that does not go away after a few hours 6597-7042 [employer]. [address] [place] [address], [place] [address]. All righ ts reserved. This information is [...] Carmelo Patterson MD at 11/16/2014 8:42 AM Carmelo Steve MD - 11/15/2014 8:27 AM PST PRE-ENDOSCOPY [...] Date Crohn's disease (HCC) hospitalized 11/03/12-11/07/12 at [facility] for crohn's flare Asthma Hypothyroidism Hx of [...] Laterality: N/A; Surgeon: Carmelo Patterson MD; Location: [facility] MEDICAL PROCEDURE UNIT HOME MEDS: Scheduled [...] Electronically Signed by: Carmelo Patterson MD 11/15/2014 [facility] Portions of this chart may have been created with [employer] voice recognition software. Occasi onal wrong-word or [...] | | | | | PST | ([facility]) Abdominal | | | | | [...] Rachid GlezProcedkim Date: | PROVATION | | 11/16/2014 8:31 AMMRN: [id number] #: [id number] of : | | | 1970Admit Type: AmbulatoryAge: 44Room: [facility] 02Gender: MaleNote | | | Status: [...] the nurse | | | and the refresh technician in the pre-procedure area in the [...] Scope In: 8:50:16 AMScope Out: 9:09:29 AM [facility]. | | | [facility], [address] [place] [address] | | | [phone] | | | - Continue present medications. [...] |Scope Out: 9:09:29 AM | | | [facility], [address] [facility] [place], [place] | | | [address] | | + + -+ + +---------+ [...] 2 mg/mL | | | injection Starting [facility] 11/16/14 | | | at 0734, [...] PST | | | | | Starting [facility] 11/16/14 at 0731, | | | [...]
--- OUTSIDE RECORDS SUMMARY | ~2020-03-25 | XMS | Encounter Summary ---
Demographics + + + | Address | [address] | | | [place] [address] | + + + | Home Phone [...] Team Providers + +------+ + | Care Deployment Specialist Name | Role | Phone | [...] Appointment Question | | 2016 | | [place] at [facility] [address] | MD | | | | | [address] | | | | | | Mailcode: [place] | | | | | | Health and | | | | | | [facility], [facility] 2 | | | | | | [place], [place] | | | | | | [address] | | | | | | [phone] | | | +--------+ + + + [...]
--- OUTSIDE RECORDS SUMMARY | ~2020-03-25 | XMS | Encounter Summary ---
Demographics + + + | Address | [address] | | | [place] [address] | + + + | Home Phone [...] | Organization | [facility] | | [...] Team Providers + +------+ + | Care Contact Lens Fitter Name | Role | Phone | + +------+ + | Emily Green DO | PCP | | + +------+ + Encounter Details +--------+ + + + + | Date | Type | Department | Care Team | Description | +--------+ + + + + | 01/14/ | Hospital | [facility] | Emily Green, | | | 2016 | Encounter | [facility] | DO [address] [place] | | | | | MEDICAL CLINIC [address] | [facility] [place] [address] | | | | | [address] [place], | [phone] | | | | | [place] [address] | | | | | | [phone] | | | +--------+ + + + [...]
--- OUTSIDE RECORDS SUMMARY | ~2020-03-25 | XMS | Encounter Summary ---
Demographics + + + | Address | [address] | | | [place] [address] | + + + | Home Phone [...] Organization | [facility] | | [...] Team Providers + +------+ + | [employer] Hazmat Tanker Driver Name | Role | Phone | [...] [place] | | | | | | [address] | | | | | | [phone] | | | +--------+ + + + [...]
--- OUTSIDE RECORDS SUMMARY | ~2020-03-25 | XMS | Encounter Summary ---
Demographics + + + | Address | [address] | | | [place] [address] | + + + | Home Phone [...] [facility] | [...] Team Providers + +------+ + | Care Herpetologist Name | Role | Phone | + +------+ + | Emily Green DO | PCP | | + +------+ + Encounter Details +--------+ + + + + | Date | Type | Department | Care Team | Description | +--------+ + + + + | 02/12/ | Orders Only | [facility] | Carmelo Patterson MD | Crohn's disease with | | 2016 | | GASTROENTEROLOGY | [address] | complication, | | | | [address] [facility] | [place], [place] | unspecified | | | | [address] [place], [place] | [address] | gastrointestinal | | | | [address] | [phone] | tract location | | | | [phone] | | ([facility]); Blood in | | | [...] | | | | | | continuous ([facility]) | +--------+ + + + [...]
--- OUTSIDE RECORDS SUMMARY | ~2020-03-25 | XMS | Encounter Summary ---
Demographics + + + | Address | [address] | | | [place] [address] | + + + | Home Phone [...] Organization | [facility] | | [...] Team Providers + +------+ + | Care Packer Inspector Name | Role | Phone | + +------+ + | Emily Green DO | PCP | | + +------+ + Encounter Details +--------+ + + + + | Date | Type | Department | Care Team | Description | +--------+ + + + + | 01/16/ | [facility] | [facility] | Shirley Frankel, | | | 2016 | Encounter | [facility] | SALES BRANCH MANAGER [address] | | | | | MEDICAL CLINIC [address] | [address] [facility] [place] | | | | | [address] [facility], | [address] | | | | | [place] [address] | | | | | | [phone] | | | +--------+ + + + [...]
--- OUTSIDE RECORDS SUMMARY | ~2020-03-25 | XMS | Encounter Summary ---
Demographics + + + | Address | [address] | | | [place] [address] | + + + | Home Phone [...] Author | [facility] | + + + | Organization | [facility] | + + + | Address | Unknown | + + + | Phone | Unavailable | + + + Support + + +---------+ + | Name | Relationship | Address | Phone | + + +---------+ + | Thalia Armani | ECON | Unknown | | + + +---------+ + Care Team Providers + +------+ + | Care Flour Inspector Name | Role | Phone | [...] | Rd Mailcode: [id number] | [address] [address] [place], | | | | | [place], [place] | [place] [address] | | | | | [address] | [phone] | | | | | [phone] | | | +--------+ + + + [...] + + + + + | [facility] | [address] [facility] | [place] [address] | | | PATHOLOGY | [address] | | | + + + + + | [facility] | [address] [place] [address] | [place] [address] | | | PATHOLOGY | [address] [...] | + + + + + | [facility] DEPARTMENT OF | [address] | [place] [address] | | | PATHOLOGY | [address] | | | + + + + + | [facility] DEPARTMENT OF | [address] | [place] [address] | | | PATHOLOGY | [address] [...] | + + + + + | [facility] DEPARTMENT OF | [address] | [place] [address] | | | PATHOLOGY | [address] | | | + + + + + | [place] DEPARTMENT OF | [address] | [place] [address] | | | PATHOLOGY | [address] [...] + + + + + | [facility] | [address] [facility] | [place] [address] | | | PATHOLOGY | [address] | | | + + + + + | [facility] | [address] [facility] | [place] [address] | | | PATHOLOGY | [address] [...] + + + + + | [facility] | [address] | [place] [address] | | | PATHOLOGY | [address] | | | + + + + + | [facility] | [address] [facility] | [place] [address] | | | PATHOLOGY | [address] [...] DEPARTMENT OF | [address] | [place] [address] | | | PATHOLOGY | [address] | | | + + + + + | [facility] DEPARTMENT OF | [address] | [place] [address] | | | PATHOLOGY | [address] | | | + + + + + MAGNESIUM, PLASMA (09/17/2007 6:04 AM PST) + +-------+ + + + | Component | Value | Ref Range | Performed | Pathologist | | | | | At | Signature | + +-------+ + + + | MAGNESIUM,P | 2.0 | 1.8 - 2.5 mg/dL | [facility] | | | LASMA | | | [...] + + + + + | [facility] | [address] | [place] [address] | | | PATHOLOGY | [address] | | | + + + + + | [facility] | [address] | [place] [address] | | | PATHOLOGY | [address] [...] + + + + + | [facility] | [address] | [place] [address] | | | PATHOLOGY | [address] | | | + + + + + | [facility] DEPARTMENT OF | [address] | [place] [address] | | | PATHOLOGY | [address] [...] DEPARTMENT OF | [address] | [place] [address] | | | PATHOLOGY | [address] | | | + + + + + | [place] DEPARTMENT OF | [address] | [place] [address] | | | PATHOLOGY | [address] [...] 12.6 (L) | 13.5 - 17.5 | [facility] | | | | | g/dL | [...] | + + + + + | [facility] DEPARTMENT | [address] [facility] | [place] [address] | | | PATHOLOGY | [address] | | | + + + + + | [facility] | [address] [facility] | [place] [address] | | | PATHOLOGY | [address] [...] + | [facility] DEPARTMENT OF | [address] | [place] [address] | | | PATHOLOGY | [address] | | | + + + + + | [facility] DEPARTMENT OF | [address] | [place] [address] | | | PATHOLOGY | [address] [...] | + + + + + | [facility] DEPARTMENT OF | [address] | [place] [address] | | | PATHOLOGY | [address] | | | + + + + + | [facility] DEPARTMENT OF | [address] | [place] [address] | | | PATHOLOGY | [address] [...] + + + + + | [facility] | [address] [facility] | [place] [address] | | | PATHOLOGY | [address] | | | + + + + + | [facility] | [address] [facility] | [place] [address] | | | PATHOLOGY | [address] [...] + + + + + | [facility] | [address] [facility] | [place] [address] | | | PATHOLOGY | [address] | | | + + + + + | [facility] DEPARTMENT OF | [address] [facility] | [place] [address] | | | PATHOLOGY | [address] | | | + + + + + documented in this encounter Visit Diagnoses Not on filedocumented in this encounter"
--- OUTSIDE RECORDS SUMMARY | ~2020-03-25 | XMS | Encounter Summary ---
Demographics + + + | Address | [address] | | | [place] [address] | + + + | Home Phone [...] Organization | [facility] [...] Team Providers + +------+ + | Care Bonding Machine Setter Name | Role | Phone | [...] 2012 | | GASTROENTEROLOGY | [address] | (gastroesophageal | | | | [address] | [address] [place], | reflux disease) | | | | [address] [place], [place] | [place] [address] | (Primary Dx) | | | | [address] | [phone] | | | | | [phone] | | | +--------+ + + + [...]
--- OUTSIDE RECORDS SUMMARY | ~2020-03-25 | XMS | Encounter Summary ---
Demographics + + + | Address | [address] | | | [place] [address] | + + + | Home Phone [...] Team Providers + +------+ + | Care Gem Expert Name | Role | Phone | [...] | [address] [place] | [address] [facility], | | | | | [facility], [place] | [place] [address] | | | | | [address] | [phone] | | | | | [phone] | | | +--------+ + + + [...]
--- OUTSIDE RECORDS SUMMARY | ~2020-03-25 | XMS | Encounter Summary ---
Demographics + + + | Address | [address] | | | [place] [address] | + + + | Home Phone [...] Organization | [facility] | [...] Team Providers + +------+ + | Care Electrocardiographic Technician Name | Role | Phone | [...] + + | 03/10/ | Telephone | [facility] | Carmelo Patterson MD | Appointment (r/s | | 2016 | | GASTROENTEROLOGY | [address] | procedure ) | | | | [address] [facility] | [place], [place] | | | | | [address] [place], [place] | [address] | | | | | [address] | [phone] | | | | | [phone] | | | +--------+ + + + [...] no money to get to [facility] from [place] this month. Authorization is still pending as [...]
--- OUTSIDE RECORDS SUMMARY | 2020-03-25 15:14 | XMS ---
PreManage Notification: JOSIE BANGURA Security Quality Assurance Tester Events No recent Security Events currently on file CRITERIA MET - Group Notification - [facility] - Has Care Guidelines CARE PROVIDERS STIVEN SIBLEY Physician Pharmacy Teacher 09/05/2019-Current PHONE: [phone] MARQUEZ MAI Family Medicine: Geriatric Medicine Current PHONE: Unknown Guidelines Source: [facility] [facility] Guidelines Date: 02/06/2020 Care Coordination: Member is currently enrolled in Mental Health Services through [employer]. If services are needed through [employer] please call: Baljinder [phone] [place]\T\nbsp; [phone] [facility] [phone] Care History Medical/Surgical 03/24/2018 [facility] - CHW met with patient and [...] returns to ED please contact Community Health Worker Archel at [phone]. These are guidelines and the provider should exercise clinical judgment when providing care. Substance Use/Overdose 02/16/2018 [facility] USE CAUTION WITH NARCOTICS . PATIENT THREATENED STAFF WHEN HE DIDN'T GET NARCOTICS HE WANTED. LEFT AMA WHEN NOT GIVEN NARCOTICS WANTED. PT HAS CHRONIC CONDITION. PATIENT HAS BEEN HELPED FIND PCP FOR CHRONIC ISSUES. PATIENT FIRST PCP APPOINTMENT TODAY - WENT TO CLINIC THIS MORNING AND WAS REMINDED HIS APPOINTMENT IS AT 3PM. STATED HE WOULD BE BACK. CAME TO ED. E.D. VISIT COUNT (12 MO.) 4 [facility]. TOTAL 4 NOTE: Visits indicate total known visits. ED/C VISIT TRACKING (12 MO.) 03/25/2020 15:10 [facility] [place] TYPE: Emergency COMPLAINT: - WEAKNESS 12/09/2019 13:16 [facility] [place] TYPE: Emergency COMPLAINT: - MED CLEARANCE DIAGNOSES: - Allergy status to narcotic agent status - Anxiety disorder, unspecified - Unspecified asthma, uncomplicated - Other group home (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 - Encounter for other general examination - Allergy status to analgesic agent status - Hypothyroidism, unspecified - Adjustment disorder with mixed anxiety and depressed mood 10/14/2019 14:37 [facility] [place] TYPE: Emergency COMPLAINT: - ABDOMINAL PAIN DIAGNOSES: - Hypothyroidism, unspecified - Allergy status to narcotic agent status - Anxiety disorder, unspecified - Unspecified asthma, uncomplicated - Other termination clerk (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 - Unspecified abdominal pain - Crohn's disease, unspecified, without complications - termination clerk (current) use of inhaled steroids 09/03/2019 15:[address] [facility] [place] TYPE: Emergency COMPLAINT: - POSSIBLE HERNIA DIAGNOSES: - Anxiety disorder, unspecified - Hypothyroidism, unspecified - Personal history of nicotine dependence - Other termination clerk (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 - Allergy status to analgesic agent status - Allergy status to narcotic agent status - Periumbilical pain - Unspecified asthma, uncomplicated INPATIENT VISIT TRACKING (12 MO.) No inpatient visits to display in this time frame [id number]
[2020-03-25] MEDS ORDERED: EUTHYROX175 MCG PO (17:22)
--- NOTE | 2020-03-28 16:13 | EKG ---
[facility] [address] [facility] [place] [address] Signed Sinus bradycardia Rightward axis Septal infarct (cited on or before 04-OCT-2019) Possible Inferior infarct , age undetermined Abnormal ECG When compared with ECG of 04-OCT-2019 10:14, QRS axis shifted right Borderline criteria for Inferior infarct are now present T wave amplitude has decreased in Anterolateral leads Confirmed by TRICE MONET DO ([id number]) on 03/28/2020 4:12:54 PM Electronically Signed By: TRICE MONET DO 03/28/20 1613 PATIENT NAME: JOSIE BANGURA LILLIAN Electrocardiogram DATE OF : 68 PHYSICIAN: TRICE MONET DO REPORT #: [id number] REPORT IS CONFIDENTIAL AND NOT TO BE RELEASED WITHOUT AUTHORIZATION
== END 2020-03-25 17:50 | disposition home or self-care (01) ==
LOC: ED 15:10
DX: N18.9 Chronic kidney disease, unspecified (principal); E03.9 Hypothyroidism, unspecified; R79.89 Other specified abnormal findings of blood chemistry; J45.909 Unspecified asthma, uncomplicated; F41.9 Anxiety disorder, unspecified; Z88.5 Allergy status to narcotic agent; Z79.899 Other long term (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
CPT/HCPCS: 71045; 80053; 80074; 84443; 84484; 85025; 93005; 93010; 96360; 99285-25; J7030

== ENCOUNTER 2020-07-14 13:10 | Emergency (ER) | payer OTHER ==
[~2020-07-14] VITALS: Ht 157.5 cm; Wt 59.0 kg
--- OUTSIDE RECORDS SUMMARY | ~2020-07-14 | XMS | Encounter Summary ---
Demographics + + + | Address | [address] | | | [place] [address] | + + + | Home Phone | | + + + | Preferred Language | Unknown | + + + | Marital Status | Single | + + + | Rastafarian Affiliation | CHR | + + + | Race | White | + + + | Ethnic Group | Not or | + + + Author + + + | Author | [facility] | + + + | Organization | [facility] | + + + | Address | Unknown | + + + | Phone | Unavailable | + + + Support + + +---------+ + | Name | Relationship | Address | Phone | + + +---------+ + | Thalia Armani | ECON | Unknown | | + + +---------+ + Care Team Providers + +------+ + | Care Shoemaker Apprentice Name | Role | Phone | + +------+ + | Meaghan Zhong MD | PCP | | + +------+ + Encounter Details +--------+ + + + + | Date | Type | Department | Care Team | Description | +--------+ + + + + | 05/14/ | Orders Only | [facility] | [address], | | | 2014 | | Center [place] [address] [address] | | | | | | [address] [facility] | | | | | | [facility] and | | | | | | Healing, [address] | | | | | | [place], [place] | | | | | | [address] | | | | | | [phone] | | | +--------+ + + + [...] on file | | + + + documented as of this encounter Plan of Treatment Not on filedocumented as of this encounter Visit Diagnoses Not on filedocumented in this encounter"
--- OUTSIDE RECORDS SUMMARY | ~2020-07-14 | XMS | Encounter Summary ---
Demographics + + + | Address | [address] | | | [place] [address] | + + + | Home Phone | | + + + | Preferred Language | Unknown | + + + | Marital Status | Single | + + + | Sikhism Affiliation | 1013 | + + + | Race | White | + + + | Ethnic Group | Not or | + + + Author + + + | Author | [facility] | | | and [place] | + + + | Organization | [facility] | | | and [place] | [...] Team Providers + +------+ + | Care Print Journalist Name | Role | Phone | + +------+ + | No, Physician | PCP | Unavailable | + +------+ + Reason for Visit Auth/Cert +--------+--------+ + + + + | Status | Reason | Specialty | Diagnoses / | Referred By | Referred To | | | | | Procedures | Contact | Contact | +--------+--------+ + + + + | Closed | | | Diagnoses | | | | | | | Abdominal | | | | | | | pain, | | | | | | | unspecified | | | | | | | site | | | | | | | Regional | | | | | | | enteritis of | | | | | | | unspecified | | | | | | | site | | | | | | | Regional | | | | | | | enteritis of | | | | | | | unspecified | | | | | | | site (HCC) | | | | | | | [[phone]] | | | | | | | Abdominal | | | | | | | pain, | | | | | | | unspecified | | | | | | | site | | | | | | | [[phone]] | | | | | | | Procedures | | | | | | | NM | | | | | | | COLONOSCOPY, | | | | | | | DIAGNOSTIC | | | | | | | NM | | | | | | | [...] | +--------+ + + + + | 04/14/ | Hospital | [facility] | Carmelo Patterson MD | Abdominal pain | | 2013 | Encounter | [facility] | [address] | (Primary Dx); | | | | [address] | [place], [place] | Crohn's disease, | | | | [place], [place] | [address] | unspecified | | | | [address] | [phone] | complication (HCC) | | | | [phone] | | | +--------+ + + + [...] + + + | Blood Pressure | 143/103 | 04/14/2014 1:10 PM | | | | | PDT | | + + + + + | Pulse | 45 | 04/14/2014 1:10 PM | | | | | PDT | | + + + + + | Temperature | 36.5 C (97.7 F) | 04/14/2014 10:02 AM | | | | | PDT | | + + + + + | Respiratory Rate | 16 | 04/14/2014 1:10 PM | | | | | PDT | | + + + + + | Oxygen Saturation | 97% | 04/14/2014 1:10 PM | | | | | PDT | | + + + + + | Inhaled Oxygen | - | - | | | Concentration | | | | + + + + + | Weight | 65 kg (143 lb 4.8 | 04/14/2014 10:02 AM | | | | oz) | PDT | | + + + + + | Height | 157.5 cm (5' 2") | 04/14/2014 10:02 AM | | | | | PDT | | + + + + + | Body Mass Index | 26.21 | 04/14/2014 10:02 AM | | | | | PDT | | + + + + + documented in this encounter Discharge Instructions Instructions Carmelo Patterson MD - 04/13/2014Patient Discharge Instructions after an Endosco py Procedure You may resume your regular diet after discharge. Do not drive, operate machinery, make critical decisions or do activities that require co ordination or balance for 24hrs. Resume normal medications unless otherwise instructed. If biopsies were taken, the physician s office will contact you within 7-10 days. If a colonoscopy was performed, then you may continue to expel large amounts of air from your rectum. Please call the physician who did your procedure at [phone] if you have any questions or experience any of the following: Increasing abdominal pain, nausea, or vomiting. Chills and fever over 101F. New abdominal swelling or bloating. Signs of rectal bleeding (black or red stool. If you cannot get a hold of your physician, then call the [facility] [phone] . If necessary, report to the Emergency Department at [facility]. Quit smoking: If you smoke or have smoked within the last year, quitting is the most import ant thing you can do to protect and improve your health. documented in this encounter Medications at Time of Discharge [...] + + documented as of this encounter H&P Notes Carmelo Patterson MD - 04/14/2014 11:55 AM PDTPatient interviewed, history and physical, symp toms reviewed VS signs noted, no change from previous H&P or assessment and plan. Electroni esperanza signed by Carmelo Patterson MD at 04/14/2014 11:55 AM PDTWoodsReg MD - 4 5:01 PM PDT Subjective: Patient ID: Rachid Glez is a 43 y.o. male. HPI Comments: See dictation Other Associated symptoms include abdominal pain, fatigue and vomiting. Filed Vitals: 03/22/14 1620 BP: 100/60 Pulse: 70 Temp: 36.8 C (98.3 F) Resp: 16 PainSc: 6 No Known Allergies Past Medical History Diagnosis Date Crohn's disease (HCC) hospitalized 11/03/12-11/07/12 at [facility] for crohn's flare Asthma Hypothyroidism Hx of head injury Allergy GERD (gastroesophageal reflux disease) Depression Transaminitis 11/07/12 improving H/O medication noncompliance 11/07/12 Past Surgical History Procedure Date Cholecystectomy Elbow surgery, right Abdominal hernia repair x4 Egd and colonoscopy 03/21/09 Egd and colonoscopy 10/23/10 Normal colonoscopy. Hiatal hernia, esophagitis, duodenitis. Colonoscopy Upper gastrointestinal endoscopy Family History Problem Relation Age of Onset Asthma Mother Stroke Mother Other (See Comment) Mother HYPOTHYROIDISM Colon cancer Mother Heart surgery Mother CABG x 2 Prostate cancer Father 62 Cancer Father 62 PROSTATE Osteoarthritis Sister History Social History Marital Status: Single Spouse Name: N/A Number of Children: N/A Years of Education: N/A Occupational History Not on file. Social History Main Topics Smoking status: Former Smoker Smokeless tobacco: Current User Types: Chew Alcohol Use: No Drug Use: No Sexually Active: Not on file Other Topics Concern Not on file Social History Narrative No narrative on file Review of Systems Constitutional: Positive for appetite change and fatigue. Negative for unexpected weight ch merari. Respiratory: Positive for wheezing. Cardiovascular: Negative. Gastrointestinal: Positive for vomiting, abdominal pain, diarrhea and blood in stool. Genitourinary: Negative. Musculoskeletal: Hip pain Neurological: Negative. Hematological: Negative. Psychiatric/Behavioral: Positive for dysphoric mood. The patient is nervous/anxious. Objective: Physical Exam Constitutional: He is oriented to person, place, and time. He appears well-developed and we ll-nourished. HENT: Head: Normocephalic and atraumatic. Eyes: Pupils are equal, round, and reactive to light. Cardiovascular: Normal rate and regular rhythm. Pulmonary/Chest: Effort normal and breath sounds normal. No respiratory distress. Abdominal: Soft. Bowel sounds are normal. He exhibits no distension and no mass. There is t enderness. There is no rebound and no guarding. Tender to palpation diffusely, worse in upper abdomen Neurological: He is alert and oriented to person, place, and time. Skin: Skin is warm and dry. Psychiatric: Tearful with discussion of pain and repeated ER visits Assessment: See dictation Plan: See dictation documented in this e ncounter Procedure Notes [facility] - 04/18/2014 12:00 AM PDTAssociated Order(s): PATHOLOGY - EXTERNAL SCANEle ctronically signed by Chandra Macdonald at 04/19/2014 4:06 PM PDTONLATONIA [facility] - 04/14/2014 1 2:00 AM PDTAssociated Order(s): PATHOLOGY - EXTERNAL SCAN NBASE [facility] - 04/14/2014 12:00 AM PDTAssociated Order(s): COLONOSCOPY NLATONIA [facility] - 04/14/2014 12:00 AM PDTAssociated Order(s): EGDElectronically signed by [facility] at 12:36 PM PDTdocumented in this encounter Miscellaneous Notes Miscellaneous - [facility] - 04/20/2014 12:00 AM PDTElectronically signed by [facility] at 04/28/2014 7:32 AM PDTPlan of Care - [facility] - 04/17/2014 12:00 AM PDTElec tronically signed by [facility] at 04/17/2014 11:53 AM PDTPlan of Care - [facility] - 04/17/2014 12:00 AM PDTElectronically signed by [facility] at 04/17/2014 11:53 AM PDTMis cellaneous - [facility] - 04/17/2014 12:00 AM PDTElectronically signed by [facility] at 04/17/2014 11:53 AM PDTMiscellaneous - [facility] - 04/17/2014 12:00 AM PDTElectro nically signed by [facility] at 04/17/2014 11:53 AM PDTdocumented in this encounter Plan of Treatment + +------+--------+ + + | Name | Type | Priori | Associated Diagnoses | Order Schedule | | | | ty | | | + +------+--------+ + + | Basic Metabolic | Lab | STAT | | As Needed for 1 | | Panel | | | | Occurrences starting | | | | | | 04/14/2014 | + +------+--------+ + + documented as of this encounter Procedures + +--------+ + + + | Procedure Name | Priori | Date/Time | Associated Diagnosis | Comments | | | ty | | | | + +--------+ + + + | PATHOLOGY - EXTERNAL | | 04/18/2014 | | | | SCAN | | 12:00 AM | | | | | | PDT | | | + +--------+ + + + | EGD / COLONOSCOPY | | 04/14/2014 | Abdominal pain, | | | | | 11:50 AM | unspecified site | | | | | PDT | Regional enteritis | | | | | | of unspecified site | | | | | | (HCC) | | + +--------+ + + + | EGD | Routin | 04/14/2014 | | Results for this | | | e | 11:49 AM | | procedure are in the | | | | PDT | | results section. | + +--------+ + + + | COLONOSCOPY | Routin | 04/14/2014 | | Results for this | | | e | 11:47 AM | | procedure are in the | | | | PDT | | results section. | + +--------+ + + + | PATHOLOGY - EXTERNAL | | 04/14/2014 | | | | SCAN | | 12:00 AM | | | | | | PDT | | | + +--------+ + + + documented in this encounter Results EGD (04/14/2014 11:49 AM PDT) + + | Specimen | + + | | + + + + -+ | Narrative | Performed At | + + -+ | | [facility] | | GastroenterologyPatient Name: Rachid GlezProcedkim Date: | [facility] | | 04/14/2014 11:49 AMMRN: [id number] #: [id number] of : | | | 1970Admit Type: AmbulatoryAge: 43[facility]: [facility] 02Gender: MaleNote | | | Status: FinalizedAttending MD: Carmelo Patterson, [facility]cedure: | | | Upper GI endoscopyIndications: Epigastric abdominal pain, | | | Nausea with vomitingProviders: Carmelo Patterson MD, | | | Monique Ling RN, Johana | | | ADITI Jerez, RUBY NORTON, Intermediate Manager, Ashwin Wright MD | | | (Anesthesia Staff)Medicines: Monitored | | | Anesthesia CareComplications: No immediate | | | complications.Procedure: Pre-Anesthesia Assessment: - | | | Prior to the procedure, a History and Physical was performed, and | | | patient medications and allergies were reviewed. The patient is | | | competent. The risks and benefits of the procedure and the | | | sedation options and risks were discussed with the patient. All | | | questions were answered and informed consent was obtained. | | | Patient identification and proposed procedure were verified by | | | the physician, the nurse, the anesthesiologist and the | | | computer forensics technician in the pre-procedure area in the endoscopy suite. | | | Mental Status Examination: alert and oriented. Airway | | | Examination: normal oropharyngeal airway and neck mobility. | | | Respiratory Examination: clear to auscultation. CV Examination: | | | normal. Prophylactic Antibiotics: The patient does not require | | | prophylactic antibiotics. Prior Anticoagulants: The patient | | | has taken no previous anticoagulant or antiplatelet agents. ASA | | | Grade Assessment: II - A patient with mild systemic disease. | | | After reviewing the risks and benefits, the patient was deemed | | | in satisfactory condition to undergo the procedure. The | | | anesthesia plan was to use monitored anesthesia care (MAC). | | | Immediately prior to administration of medications, the patient | | | was re-assessed for adequacy to receive sedatives. The heart | | | rate, respiratory rate, oxygen saturations, blood pressure, | | | adequacy of pulmonary ventilation, and response to care were | | | monitored throughout the procedure. The physical status of the | | | patient was re-assessed after the procedure. After obtaining | | | informed consent, the endoscope was passed under direct vision. | | | Throughout the procedure, the patient's blood pressure, pulse, | | | and oxygen saturations were monitored continuously. The endoscope was | | | introduced through the mouth, and advanced to the third part | | | of duodenum. The upper GI endoscopy was accomplished without | | | difficulty. The patient tolerated the procedure well.Findings: | | | The examined esophagus was normal. Patchy mildly | | | erythematous mucosa without bleeding was found in the entire | | | examined stomach. Biopsies were taken with a cold forceps for | | | histology. Verification of patient identification for the specimen was | | | done by the physician and nurse using the patient's name and | | | date. Estimated blood loss was minimal. No other | | | significant abnormalities were identified in a careful | | | examination of the stomach. The cardia and gastric fundus were | | | normal on retroflexion. Patchy mildly erythematous mucosa | | | without active bleeding and with no stigmata of bleeding was | | | found in the duodenal bulb. Biopsies were taken with a cold | | | forceps for histology. Verification of patient identification | | | for the specimen was done by the physician and nurse using the | | | patient's name and date. Estimated blood loss was | | | minimal. The exam of the duodenum was otherwise normal. A | | | single 4 mm semi-sessile polyp with no bleeding and no stigmata of | | | recent bleeding was found in the gastric fundus. Biopsies were | | | taken with a cold forceps for histology. Verification of | | | patient identification for the specimen was done by the | | | physician and nurse using the patient's name and date. | | | Estimated blood loss was minimal.Impression: - Normal | | | esophagus. - Erythematous mucosa in the stomach. Biopsied. | | | - Erythematous duodenopathy. Biopsied.Recommendation: - | | | Discharge patient to home. - Regular diet. - Continue | | | present medications. - Await pathology results. - Return | | | to GI clinic in 4 weeks. - The findings and recommendations were | | | discussed with the patient.Carmelo Patterson MD04/14/2014 12:31 | | | PMNumber of Addenda: 0Note Initiated On: 04/14/2014 11:49 AM | | | [facility], [address] [place] [address] | | | [id number] | | | - Normal esophagus. | | | - Erythematous mucosa in the stomach. Biopsied. | | | - Erythematous duodenopathy. Biopsied. | | |Recommendation: | | | - Discharge patient to home. | | | - Regular diet. | | | - Continue present medications. | | | - Await pathology results. | | | - Return to GI clinic in 4 weeks. | | | - The findings and recommendations were discussed with the patient. | | |Carmelo Patterson MD | | |04/14/2014 12:31 PM | | |Number of Addenda: 0 | | |Note Initiated On: 04/14/2014 11:49 AM | | | [facility], [address] [place] [address] | | | [id number] | | + + -+ + + | Transcriptions | + + | Chandra Macdonald - 04/14/2014 12:00 AM PDT | + + + +---------+ + + | Performing | Address | City/State/Zipcode | Phone Number | | Organization | | | | + +---------+ + + | [facility] | | | | + +---------+ + + COLONOSCOPY (04/14/2014 11:47 AM PDT) + + | Specimen | + + | | + + + + -+ | Narrative | Performed At | + + -+ | | [facility] | | GastroenterologyPatient Name: Rachid GlezProcedkim Date: | PROVATION | | 04/14/2014 11:47 AMMRN: [id number] #: [id number] of : | | | 1970Admit Type: AmbulatoryAge: 43Room: [facility] 02Gender: MaleNote | | | Status: FinalizedAttending MD: Carmelo Patterson, [facility]ITALrocedure: | | | ColonoscopyIndications: Abdominal painProviders: | | | Carmelo Patterson MD, Monique Ling RN, Johana | | | ADITI Jerez, RUBY NORTON, Intermediate Manager, Ashwin | | | MD Adriana (Anesthesia Staff)Medicines: | | | Monitored Anesthesia CareComplications: No immediate | | | complications.Procedure: Pre-Anesthesia Assessment: - | | | Prior to the procedure, a History and Physical was performed, and | | | patient medications and allergies were reviewed. The patient is | | | competent. The risks and benefits of the procedure and the | | | sedation options and risks were discussed with the patient. All | | | questions were answered and informed consent was obtained. | | | Patient identification and proposed procedure were verified by | | | the physician, the nurse, the anesthesiologist and the | | | computer forensics technician in the pre-procedure area in the endoscopy suite. | | | Mental Status Examination: alert and oriented. Airway | | | Examination: normal oropharyngeal airway and neck mobility. | | | Respiratory Examination: clear to auscultation. CV Examination: | | | normal. Prophylactic Antibiotics: The patient does not require | | | prophylactic antibiotics. Prior Anticoagulants: The patient | | | has taken no previous anticoagulant or antiplatelet agents. ASA | | | Grade Assessment: II - A patient with mild systemic disease. | | | After reviewing the risks and benefits, the patient was deemed | | | in satisfactory condition to undergo the procedure. The | | | anesthesia plan was to use monitored anesthesia care (MAC). | | | Immediately prior to administration of medications, the patient | | | was re-assessed for adequacy to receive sedatives. The heart | | | rate, respiratory rate, oxygen saturations, blood pressure, | | | adequacy of pulmonary ventilation, and response to care were | | | monitored throughout the procedure. The physical status of the | | | patient was re-assessed after the procedure. After I obtained | | | informed consent, the scope was passed under direct vision. | | | Throughout the procedure, the patient's blood pressure, pulse, | | | and oxygen saturations were monitored continuously. The endoscope was | | | introduced through the anus with the intention of advancing to | | | the cecum. The scope was advanced to the transverse colon | | | before the procedure was aborted. Medications were given. The | | | colonoscopy was performed with moderate difficulty due to poor | | | bowel prep with stool present. The patient tolerated the | | | procedure well. The quality of the bowel preparation was | | | unsatisfactory.Findings: A large amount of copious quantities of | | | stool was found in the rectum, in the recto-sigmoid colon, in | | | the sigmoid colon, in the descending colon, at the splenic | | | flexure and in the transverse colon, precluding visualization. | | | No biopsies or other specimens were collected for this | | | exam.Impression: - Preparation of the colon was unsatisfactory. | | | - Stool in the rectum, in the recto-sigmoid colon, in the | | | sigmoid colon, in the descending colon, at the splenic flexure | | | and in the transverse colon. No specimens | | | collected.Recommendation: - Continue present medications. | | | - Discharge patient to home. - Regular diet. - Repeat | | | colonoscopy in 2 weeks because the bowel preparation was | | | suboptimal. - Return to GI clinic PRN. - The findings and | | | recommendations were discussed with the patient.Carmelo Patterson | | | 04/14/2014 12:37 PMNumber of Addenda: 0Note Initiated On: 04/14/2014 | | | 11:47 AM [facility], [address], | | | [place] [address] | | | colon. No specimens collected. | | |Recommendation: | | | - Continue present medications. | | | - Discharge patient to home. | | | - Regular diet. | | | - Repeat colonoscopy in 2 weeks because the bowel preparation was | | | suboptimal. | | | - Return to GI clinic PRN. | | | - The findings and recommendations were discussed with the patient. | | |Carmelo Patterson MD | | |04/14/2014 12:37 PM | | |Number of Addenda: 0 | | |Note Initiated On: 04/14/2014 11:47 AM | | | [facility], [address] [place] [address], [place], [place] | | | [address] | | + + -+ + + | Transcriptions | + + | Chandra Macdonald - 04/14/2014 12:00 AM PDT | + + + +---------+ + + | Performing | Address | City/State/Zipcode | Phone Number | | Organization | | | | + +---------+ + + | [facility] | | | | + +---------+ + + documented in this encounter Visit Diagnoses + + | Diagnosis | + + | Abdominal pain - Primary Abdominal pain, unspecified site | + + | Crohn's disease, unspecified complication | + + documented in this encounter Administered Medications + +--------+---------+------+------+------+ | Medication Order | MAR | Action | Dose | Rate | Site | | | Action | Date | | | | + +--------+---------+------+------+------+ + +---+ | fentaNYL 50 mcg/mL injection | | | Starting 04/14/14 at 1247, For | | | 1 dose, AWILDA RENE: go | | | override, | | + +---+ | | | + +---+ + +-------+ +--------+---+--------+ | fentaNYL injection 25 mcg 25 | Given | 04/14/20 | 25 mcg | | Right | | mcg, Intravenous, ONCE, Thu | | 14 1:05 | | | Arm | | 04/14/14 at 1330, For 1 dose, May | | PM PDT | | | | | repeat x 1 in 20 min if no | | | | | | | relief, Post-op/Phase II | | | | | | + +-------+ +--------+---+--------+ +-------+ +--------+---+--------+ | Given | 04/14/20 | 25 mcg | | Right | | | 14 12:45 | | | Arm | | | PM PDT | | | | +-------+ +--------+---+--------+ +---+---+ | | | +---+---+ + +-------+ +--------+---+---+ | iohexol (OMNIPAQUE 350) 350 | Given | 04/14/20 | 85 mLs | | | | mg/mL injection 85 mL 85 mL, | | 14 2:00 | | | | | Intravenous, ONCE PRN, Other, | | PM PDT | | | | | Starting 04/14/14 at 1400, For | | | | | | | 1 dose, Cat Scanner | | | | | | + +-------+ +--------+---+---+ +---+---+ | | | +---+---+ + + + +---+ +---+ | lactated ringers (LR) infusion | Restarte | 04/14/20 | | 50 mL/hr | | | at 10-100 mL/hr, Intravenous, | d | 14 12:40 | | | | | CONTINUOUS, Starting 04/14/14 | | PM PDT | | | | | at 1015, TKO., Pre-op | | | | | | + + + +---+ +---+ +---------+ +----+ +---+ | New Bag | 04/14/20 | mL | | | | | 14 12:19 | | | | | | PM PDT | | | | +---------+ +----+ +---+ | New Bag | 04/14/20 | | 50 mL/hr | | | | 14 10:37 | | | | | | AM PDT | | | | +---------+ +----+ +---+ +---+---+ | | | +---+---+ + +-------+ +------+---+---+ | ondansetron (ZOFRAN) injection | Given | 04/14/20 | 4 mg | | | | 4 mg 4 mg, Intravenous, EVERY 4 | | 14 1:04 | | | | | HOURS PRN, Nausea, Vomiting, | | PM PDT | | | | | Starting 04/14/14 at 1236, | | | | | | | Recovery/Phase I | | | | | | + +-------+ +------+---+---+ +---+---+ | | | +---+---+ documented in this encounter
--- OUTSIDE RECORDS SUMMARY | ~2020-07-14 | XMS | Encounter Summary ---
Demographics + + + | Address | [address] | | | [place] [address] | + + + | Home Phone | | + + + | Preferred Language | Unknown | + + + | Marital Status | Single | + + + | Pentecostalism Affiliation | 1013 | + + + | Race | White | + + + | Ethnic Group | Not or | + + + Author + + + | Author | [facility] | | | and [place] | + + + | Organization | [facility] | | [...] Team Providers + +------+ + | Care Word Processor Name | Role | Phone | + +------+ + | Emily Green DO | PCP | | + +------+ + Encounter Details +--------+ + + + + | Date | Type | Department | Care Team | Description | +--------+ + + + + | 02/12/ | Orders Only | [facility] [place] | Carmelo Patterson MD | Crohn's disease with | | 2016 | | GASTROENTEROLOGY | [address] | complication, | | | | [address] | [place], [place] | unspecified | | | | [address] [place], [place] | [address] | gastrointestinal | | | | [address] | [phone] | tract location | | | | [phone] | | ([facility]); Blood in | | | | | | stool; | | | | | | Non-intractable | | | | | | vomiting with | | | | | | nausea, vomiting of | | | | | | unspecified type; | | | | | | Opioid type | | | | | | dependence, | | | | | | continuous ([facility]) | +--------+ + + + + Social [...] + | Diagnosis | + + | Crohn's disease with complication, unspecified gastrointestinal tract location (HCC) | + + | Blood in stool | + + | Non-intractable vomiting with nausea, vomiting of unspecified type | + + | Opioid type dependence, continuous (HCC) Opioid type dependence, continuous | + + documented in this encounter"
--- OUTSIDE RECORDS SUMMARY | ~2020-07-14 | XMS | Encounter Summary ---
Demographics + + + | Address | [address] | | | [place] [address] | + + + | Home Phone | | + + + | Preferred Language | Unknown | + + + | Marital Status | Single | + + + | Church Affiliation | 1013 | + + + | Race | White | + + + | Ethnic Group | Not or | + + + Author + + + | Author | [facility] | | | and [place] | + + + | Organization | [facility] | | | [...] Team Providers + +------+ + | Care Optical Model Maker And Tester Name | Role | Phone | + +------+ + | No, Physician | PCP | Unavailable | + +------+ + Reason for Visit + +--------+ + | Reason | Onset | Comments | | | Date | | + +--------+ + | Appointment | 05/17/ | move up colonoscopy | | | 2013 | | + +--------+ + Encounter Details +--------+ + + + + | Date | Type | Department | Care Team | Description | +--------+ + + + + | 05/17/ | Telephone | [facility] | Carmelo Patterson MD | Appointment (move up | | 2013 | | GASTROENTEROLOGY | [address] | colonoscopy) | | | | [address] [facility] | [place], [place] | | | | | [address] [place], [place] | [address] | | | | | [address] | [phone] | | | | | [phone] | | | +--------+ + + + [...] + + documented as of this encounter Miscellaneous Notes Telephone Encounter - Thania Emerson RN - 05/17/2014 3:10 PM PDTCalled patient and advised patient cancelled for may.19 did patient want to move up? Patient states not at this time. Still scheduled for jun.23. P M PDTdocumented in this encounter Plan of Treatment Not on filedocumented as of this encounter Visit Diagnoses Not on filedocumented in this encounter"
--- OUTSIDE RECORDS SUMMARY | ~2020-07-14 | XMS | Encounter Summary ---
Demographics + + + | Address | [address] | | | [place] [address] | + + + | Home Phone [...] Author | [facility] | | | and [place] | + + + | Organization | [facility] Services [...] Team Providers + +------+ + | Care Rn Acute Care Name | Role | Phone | + +------+ + PCP | Unavailable | + +------+ + Encounter Details +--------+ + + + + | Date | Type | Department | Care Team | Description | +--------+ + + + + | 02/25/ | Hospital | [facility] | Nima Sena | | | 2008 | Encounter | HOSPITAL EMERGENCY | [address] | | | | | C[address] | [facility] | | | | | [address] [place], [place] | [place] [address] | | | | | [address] | [phone] | | | | | [phone] | | | +--------+ + + + [...]
--- OUTSIDE RECORDS SUMMARY | ~2020-07-14 | XMS | Encounter Summary ---
Demographics + + + | Address | [address] | | | [place] [address] | + + + | Home Phone [...] + | Author | [facility] | | | and [place] | + + + | Organization | [facility] | [...] Team Providers + +------+ + | Care Db2 Systems Programmer Name | Role | Phone | + +------+ + | No, Physician | PCP | Unavailable | + +------+ + Encounter Details +--------+ + + + + | Date | Type | Department | Care Team | Description | +--------+ + + + + | 08/14/ | Hospital | [facility] | Emily Green, | | | 2013 | Encounter | [facility] | DO [address] | | | | | MEDICAL CL[address] | [place] [address] | | | | | [address] [facility], | [phone] | | | | | [place] [address] | | | | | | [phone] | | | +--------+ + + + [...]
--- OUTSIDE RECORDS SUMMARY | ~2020-07-14 | XMS | Encounter Summary ---
Demographics + + + | Address | [address] | | | [place] [address] | + + + | Home Phone | | + + + | Preferred Language | Unknown | + + + | Marital Status | Single | + + + | Hindu Affiliation | 1013 | + + + | Race | White | + + + | Ethnic Group | Not or | + + + Author + + + | Author | [facility] | | | and [place] | + + + | Organization | [facility] | | [...] Team Providers + +------+ + | Care Kiln Furniture Caster Name | Role | Phone | + [...] | Gastroenterol | Diagnoses | Leonardo, | Leonardo | | | Services | ogtheresa | Crohn's | MD Carmelo | MD Carmelo | | | Required | | disease with | [address] | [address] | | | | | | BLVD | [place], | | | | | complication | [place] | [place] [address] | | | | | , | [address] | Phone: | | | | | unspecified | Phone: | [phone] | | | | | gastrointest | [phone] | Fax: | | | | | inal tract | Fax: | [phone] | | | | | location | [phone] | | | | | | (HCC) [...] | | | | | | | GA | | | | | | | COLONOSCOPY | | | | | | | FLX DX | | | | | | | W/COLLJ SPEC | | | | | | | WHEN PFRMD | | | | | | | GA | | | | | | | COLONOSCOPY | | | | | | | W/BIOPSY | | | | | | | SINGLE/MULTI | | | | | | | PLE GA | | | | | | | COLSC FLX | | | | | | | W/RMVL OF | | | | | | | TUMOR POLYP | | | | | | | LESION SNARE | | | | | | | TQ GA | | | | | | | ESOPHAGOGAST | | | | | | | RODUODENOSCO | | | | | | | PY TRANSORAL | | | | | | | DIAGNOSTIC | | | | | | | GA EDG | | | | | | | TRANSORAL | | | | | | | BIOPSY | | | | | | | SINGLE/MULTI | | | | | | | PLE GA | | | | | | | ANESTH,INTES | | | | | | | MARLIN,SCOPE,L | | | | | | | OW [place] | | | | | | | ANESTH,UGI | | | | | | | ENDOSCOPY | | | +--------+ + + + + + Encounter Details +--------+ + + + + | Date | Type | Department | Care Team | Description | +--------+ + + + + | 01/21/ | Orders Only | [facility] | Carmelo Patterson MD | Crohn's disease with | | 2016 | | GASTROENTEROLOGY | [address] | complication, | | | | [address] | [place], [place] | unspecified | | | | [address] [place] | [address] | gastrointestinal | | | | [address] | [phone] | tract location (HCC) | | | | [phone] | | (Primary Dx); Blood | | [...]
--- OUTSIDE RECORDS SUMMARY | ~2020-07-14 | XMS | Encounter Summary ---
Demographics + + + | Address | [address] | | | [place] [address] | + + + | Home Phone | | + + + | Preferred Language | Unknown | + + + | Marital Status | Single | + + + | Sabianism Affiliation | 1013 | + + + | Race | White | + + + | Ethnic Group | Not or | + + + Author + + + | Author | [facility] | | | and [place] | + + + | Organization | [facility] | | [...] Providers + +------+ + | Care Manager Appointment Name | Role | Phone | + [...] | [address] [place] | [address] [facility], | | | | | [place], [place] | [place] [address] | | | | | [address] | [phone] | | | | | [phone] | | | +--------+ + + + [...]
--- OUTSIDE RECORDS SUMMARY | ~2020-07-14 | XMS | Encounter Summary ---
Demographics + + + | Address | [address] | | | [place] [address] | + + + | Home Phone [...] Author + + + | Author | [facility] | | | and [place] | + + + | Organization | [facility] | | [...] Providers + +------+ + | Care Inspector Electromechanical Name | Role | Phone | + [...] | | | unspecified | BLVD | [place], | | | | | site | [place], [place] | [place] [address] | | | | | Abdominal | [address] | Phone: | | | | | pain, | Phone: | [phone] | | | | | unspecified | [phone] | Fax: | | | | | site | Fax: | [phone] | | | | | Procedures | [phone] | | | | | | [place] | | | | | | | COLONOSCOPY, | | | | | | | DIAGNOSTIC | | | | | | | [place] | | | | | | | COLONOSCOPY, | | | | | | | BIOPSY [place] | | | | | | | ANESTH,INTES | | | | | | | MARLIN,SCOPE,L | | | | | | | OW | | | +--------+ + + + + + Reason for Visit + +--------+ + | Reason | Onset | Comments | | | Date | | + +--------+ + | Appointment | 05/11/ | reschedule colonoscopy due to poor prep | | | 2013 | | + +--------+ + Encounter Details +--------+ + + + + | Date | Type | Department | Care Team | Description | +--------+ + + + + | 05/11/ | Telephone | [facility] | Carmelo Patterson MD | Appointment | | 2013 | | GASTROENTEROLOGY | [address] [facility] | (reschedule | | | | [address] [facility] | [place], [place] | colonoscopy due to | | | | [address] [place], [place] | [address] | poor prep) | | | | [address] | [phone] | | | | | [phone] | | | +--------+ + + + [...] Telephone Encounter - Thania Emerson RN - 05/12/2014 10:30 AM PDTCalled patient back schedu led for jun.23 with 0900 check in time, advised that he will need to be on liquids only for 2 days prior to starting the prep, he verbalized understanding states last colonoscopy he h ad imaging done the week prior and was given barium, the barium was still in him at the time of the colonoscopy. Advised will send written instructions for 2 day prep, rx for bowel pr ep to be sent to [facility] patient to call if any questions, if a cancellation o n a day with anesthesia will call patient to see if he wants to move up.Electronically jonatan d by Thania Emerson RN at 05/12/2014 11:05 AM PDTTelephone Encounter - Ramírez Cannon 05/11/2014 8:56 AM PDTPatient called to reschedule his colonoscopy. documented in this encounter Plan of Treatment + + +--------+ + + | Name | Type | Priori | Associated Diagnoses | Order Schedule | | | | ty | | | + + +--------+ + + | Ambulatory referral | Outpatient | Routin | Regional enteritis | 1 Occurrences | | to Gastroenterology | Referral | e | of unspecified site | starting 05/12/2014 | | (LEONARDO) | | | (HCC) Abdominal | until 05/12/2015 | | | | | pain, unspecified [...]
--- OUTSIDE RECORDS SUMMARY | ~2020-07-14 | XMS | Encounter Summary ---
Demographics + + + | Address | [address] | | | [place] [address] | + + + | Home Phone [...] Author + + + | Author | [facility] | | | and [place] | + + + | Organization | [facility] | | [...] Team Providers + +------+ + | Care Railroad Car Checker Name | Role | Phone | + +------+ + | No, Physician | PCP | Unavailable | + +------+ + Reason for Visit +--------+--------+ + | Reason | Onset | Comments | | | Date | | +--------+--------+ + | Other | 11/06/ | IVCS or Prop | | | 2014 | | +--------+--------+ + Encounter Details +--------+ + + + + | Date | Type | Department | Care Team | Description | +--------+ + + + + | 11/06/ | Telephone | [facility] | Carmelo Patterson MD | Other (IVCS or Prop) | | 2015 | | GASTROENTEROLOGY | [address] [facility] | | | | | [address] [facility] | [place], [place] | | | | | [address] [place], [place] | [address] | | | | | [address] | [phone] | | | | | [phone] | | | +--------+ + + + [...] Telephone Encounter - Ese Ring RN - 11/06/2014 1:55 PM PSTSpoke with Rachid and let him know per Dr. Patterson we can proceed with IVCS. Patient still has his pre procedure in structions and does not have any other questions at this time. elephone Encounter - Monique Mckeon - 11/06/2014 8:41 AM PSTPatient called and said he was instructed to check in to see about the anesthesi ology for his procedure with Dr Patterson this Thursday. Please call either his home or cell num yoseph this afternoon. docum ented in this encounter Plan of Treatment Not on filedocumented as of this encounter Visit Diagnoses Not on filedocumented in this encounter"
--- OUTSIDE RECORDS SUMMARY | ~2020-07-14 | XMS | Encounter Summary ---
Demographics + + + | Address | [address] | | | [place] [address] | + + + | Home Phone | | + + + | Preferred Language | Unknown | + + + | Marital Status | Single | + + + | Yazdanism Affiliation | 1013 | + + + | Race | White | + + + | Ethnic Group | Not or | + + + Author + + + | Author | [facility] | | | and [place] | + + + | Organization | [facility] | | [...] Providers + +------+ + | Care Inspector Sheet Metal Parts Name | Role | Phone | + +------+ + | No, Physician | PCP | Unavailable | + +------+ + Encounter Details +--------+ + + + + | Date | Type | Department | Care Team | Description | +--------+ + + + + | 05/18/ | [facility]ajan | [facility] | Clement Ventura | | | 2013 | Encounter | HOSPITAL EMERGENCY | [address] | | | | | [address] | [facility] | | | | | [address] [place] | [place] [address] | | | | | [address] | [phone] | | | | | [phone] | | | +--------+ + + + [...] + + + + + + | Clarity, | CLEAR | CLEAR | EXTERNAL | | | Urine | | | LAB | | + + + + + + | Color, | YELLOW | YELLOW | EXTERNAL | | | Urine | | | LAB | | + + + + + + | Specific | 1.015 | 1.005 - 1.030 | EXTERNAL | | | [facility], | | | LAB | | | [...] + + + + | RBC | NONE SEEN | </= 5 PER [...] + + + + | Squamous | RARE | /LPF | EXTERNAL | [...]
--- OUTSIDE RECORDS SUMMARY | ~2020-07-14 | XMS | Encounter Summary ---
Demographics + + + | Address | [address] | | | [place] [address] | + + + | Home Phone | | + + + | Preferred Language | Unknown | + + + | Marital Status | Single | + + + | Restorationist Affiliation | 1013 | + + + | Race | White | + + + | Ethnic Group | Not or | + + + Author + + + | Author | [facility] | | | and [place] | + + + | Organization | [facility] | | [...] Team Providers + +------+ + | Care Hotel Maid Name | Role | Phone | + [...] [place] | | | | | [address] [place] | [place] [address] | | | | | [address] | [phone] | | | | | [phone] | | | +--------+ + + + [...]
--- OUTSIDE RECORDS SUMMARY | ~2020-07-14 | XMS | Encounter Summary ---
Demographics + + + | Address | [address] | | | [place] [address] | + + + | Home Phone [...] + + + | Author | [facility] | | | and [place] | + + + | Organization | [facility] | | [...] Team Providers + +------+ + | Care Endless Track Vehicle Mechanic Name | Role | Phone | + +------+ + PCP | Unavailable | + +------+ + Encounter Details +--------+ + + + + | Date | Type | Department | Care Team | Description | +--------+ + + + + | 12/14/ | Hospital | [facility] | Chapito Garces, | | | 2009 | Encounter | HOSPITAL XRAY [address] | Duc [place] MD | | | | | [place] | | | | | | [place] | | | | | | [address] | | | | | | [phone] | | | +--------+ + + + [...]
--- OUTSIDE RECORDS SUMMARY | ~2020-07-14 | XMS | Encounter Summary ---
Demographics + + + | Address | [address] | | | [place] [address] | + + + | Home Phone [...] Author | [facility] | | | and [place] | + + + | Organization | [facility] [...] Team Providers + +------+ + | Care Horticultural Therapist Name | Role | Phone | + +------+ + | No, Physician | PCP | Unavailable | + +------+ + Encounter Details +--------+ + + + + | Date | Type | Department | Care Team | Description | +--------+ + + + + | 12/02/ | Abstract | [facility] [place] | Reg Zurita, | | | 2012 | | GASTROENTEROLOGY | [address] | | | | | [address] [place] | [address] [place], | | | | | [address] [place], [place] | [place] [address] | | | | | [address] | [phone] | | | | | [phone] | | | +--------+ + + + [...]
--- OUTSIDE RECORDS SUMMARY | ~2020-07-14 | XMS | Encounter Summary ---
Demographics + + + | Address | [address] | | | [place] [address] | + + + | Home Phone | | + + + | Preferred Language | Unknown | + + + | Marital Status | Single | + + + | Synagogue Affiliation | CHR | + + + | Race | White | + + + | Ethnic Group | Not or | + + + Author + + + | Author | [facility] | + + + | Organization | [facility] | + + + | Address | Unknown | + + + | Phone | Unavailable | + + + Support + + +---------+ + | Name | Relationship | Address | Phone | + + +---------+ + | Thalia Armani | ECON | Unknown | | + + +---------+ + Care Team Providers + +------+ + | Care Sewer And Cutter Finger Buff Material Name | Role | Phone | + [...] | 2017 | on | Center at [facility] [address] | MD | | | | | [address] [facility] | | | | | | for Health and | | | | | | Healing, [address] | | | | | | [place], [place] | | | | | | [address] | | | | | | [phone] | | | +--------+ + + + [...] this encounter Miscellaneous Notes Telephone Encounter - Eric Weinstein MA - 11/28/2016 12:13 PM PSTBryant mccain t documented in this encounter Plan of Treatment Not on filedocumented as of this encounter Visit Diagnoses Not on filedocumented in this encounter"
--- OUTSIDE RECORDS SUMMARY | ~2020-07-14 | XMS | Encounter Summary ---
Demographics + + + | Address | [address] | | | [place] [address] | + + + | Home Phone [...] Team Providers + +------+ + | Care Representative Personal Service Name | Role | Phone | + +------+ + | Meaghan Zhong MD | PCP | | + +------+ + Reason for Visit +--------+--------+ + | Reason | Onset | Comments | | | Date | | +--------+--------+ + | Pain | 11/24/ | | | | 2016 | | +--------+--------+ + Encounter Details +--------+ + + + + | Date | Type | Department | Care Team | Description | +--------+ + + + + | 11/24/ | Telephone | [facility] | [address], | Pain | | 2016 | | Center at [facility] [address] | | | | | | [address] [facility] | | | | | | for Health and | | | | | | [facility] [address] | | | | | | [place], [place] | | | | | | [address] | | | | | | [phone] | | | +--------+ + + + [...] this encounter Miscellaneous Notes Telephone Encounter - Stacy Elder RN - 11/24/2016 10:32 AM PSTI spoke with Rachid Glez on the phone to discuss the message below. We discussed the labs and he will get th ose completed this week. We also discussed the defecography. He agreed to come up to [facility] to have that done. Informed him of the reasons why Dr. Green could not fill his medications and the pain cont ract. Advised he contact their office. If they need labs done, then he should complete those . He agreed and will reach out to them. He had no further questions or concerns. Cdiff and calprotectin ordered per message below and faxed to [facility] in [place] at : [phone] MRI defecography ordered per message below. ----- Message ----- From: [address] Street MD Sent: 11/24/2016 10:28 AM To: Stacy Elder RN Can we get a calprotectin and c. Difficile? Given something is "protruding", maybe we need to get a functional MRI (defecography) to se e what's going on. They do them here. If he can't come here, we can consider standard defe cography locally (though I'm not 100% sure they do it there). Kian elephone Encount er - Stacy Elder RN - 11/24/2016 10:[address] Green's office to discuss the pain medication and potentially changing nausea medications. Dr. Green is currently on sanaz tion and is going to return 11/27. Spoke with the covering provider to discuss the pain medications. He broke his pain contract by refusing to do a drug screen and that is why she is refusing to fill his pain medications. Will discuss this all with Dr. Street. Electronically signed by Stacy Elder RN at 10:15 AM PSTTelephone Encounter - Stacy Elder RN - 11/24/2016 9:41 AM PSTI sp misty with Rachid Glez on the phone to discuss his symptoms. Subjective Reason for call or visit: . Objective Data collected: When he has a bowel movement, he has significant pain. Patient said: When he goes to the bathroom, it is very painful and "feels like things are hanging down where his surgery was done" Unsure if he is referring to a potential prolapse. He is complaining constant lower abdominal pain 7-10 bowel movements per day with minimal amounts of blood towards the last bowel movements due to irritation. He is still taking Lialda. He has been on prednisone and it helps sometimes. His local provider has stopped his pain medications because he would not get labs completed . Dr. Green is the current provider prescribing pain medication. He had so many labs earlier and he didn't want more drawn. He reports he has been to the hospital many times recently due to the abdominal pain. He was last in the hospital 1.5 weeks ago - [facility] - will request records. Complaints of fever of around 100 when he wakes up. He vomits every morning around the time of first bowel movement. He has constant nausea - he takes Zofran, but it doesn't help. He really would like pain medication and he feels that is why is having these issues. Previous contact date: 09/26/16 - medication refill. New or ongoing problem: New. Assessment Nursing Risk Assessment Patient/Family's Target for the stay: decreased pain. Based on the patient's story, which category of risk matches the patient's concern? (Select at least one): Comfort Target (e.g. Physical/emotional pain, anxiety, depression): very frustrated with lack of pain control and his local provider not prescribing pain medications. Patient's condition based on current conversation is: Moderately stable: Recommendations likely to address and/or resolve risk. Plan Nursing recommendations/education/interventions for identified risk: Plan A: Will discuss with Dr. Street to get inflammation better controlled. Plan B: Call Dr. Green's office to discuss pain medications and alternatives for nausea me dications. Nursing Evaluation: Yes - Verbalizes or demonstrates understanding of education provided. Notes to Healthcare Team: Notified: MD via routed encounter. elephone Encounter - Arnel Rich - 11/24/2016 9:39 AM PSTPatient called in stating that he has issues after B M. He says he feels like his 'guts are coming out' and does not have the muscle control to p ull them back in. Says he feels cold and needs to take hot shower to warm up. Resulting in pain. Pain level 8.5/10 Seeks Medication for pain Connected to RN documented in this encounte r Plan of Treatment Not on filedocumented as of this encounter Visit Diagnoses + + | Diagnosis | + + | Crohn's disease with complication, unspecified gastrointestinal tract location (HCC) - | | Primary | + + documented in this encounter
--- OUTSIDE RECORDS SUMMARY | ~2020-07-14 | XMS | Encounter Summary ---
Demographics + + + | Address | [address] | | | [place] [address] | + + + | Home Phone | | + + + | Preferred Language | Unknown | + + + | Marital Status | Single | + + + | Mu-Ism Affiliation | 1013 | + + + | Race | White | + + + | Ethnic Group | Not or | + + + Author + + + | Author | [facility] | | | and [place] | + + + | Organization | [facility] [...] Team Providers + +------+ + | Care Industrial Gas Service Helper Name | Role | Phone | + [...] | | [address] | [place] [address] | | | | | [place], [place] | [phone] | | | | | [address] | | | | | | [phone] | | | +--------+ + + + [...]
--- OUTSIDE RECORDS SUMMARY | ~2020-07-14 | XMS | Encounter Summary ---
Demographics + + + | Address | [address] | | | [place] [address] | + + + | Home Phone [...] Author + + + | Author | [facility] | + + + | Organization | [facility] | + + + | Address | Unknown | + + + | Phone | Unavailable | + + + Support + + +---------+ + | Name | Relationship | Address | Phone | + + +---------+ + | Thalia Armani | ECON | Unknown | | + + +---------+ + Care Team Providers + +------+ + | Care Inside Sales Advertising Executive Name | Role | Phone | + +------+ + | Meaghan Zhong MD | PCP | | + +------+ + Reason for Visit + +--------+ + | Reason | Onset | Comments | | | Date | | + +--------+ + | Suicidal Ideation | 04/03/ | | | | 2016 | | + +--------+ + Encounter Details +--------+ + + + + | Date | Type | Department | Care Team | Description | +--------+ + + + + | 07/07/ | Telephone | [facility] | [address], | Suicidal Ideation | | 2017 | | [place] [address] | [place] | | | | | [address] [place] | | | | | | for Health and | | | | | | Healing, [address] | | | | | | [place], [place] | | | | | | [address] | | | | | | [phone] | | | +--------+ + + + [...] this encounter Miscellaneous Notes Telephone Encounter - Sulaiman Maya MD - 04/03/2017 7:59 PM PDTPatient was called at 19:42 today in response to distribution sales manager page about suicidal ideation. Patient reports that he has saturator leo opioid use in the past ~ 10 years and is upset that our GI office is not providing him o piates to control his Crohn's pain. He says he would use his oxycodone every few days and wa s very upset that he was not getting prescribed opiates. He endorses suicidal ideation that is chronic because his pain is poorly controlled. He does not have a plan or any homicidal i deation. I offered the number for [facility] crisis line but he declined reporting "they're o nly going to talk to me". He reports he is taking his lialda as prescribed (but endorses taking it bid though it is p rescribed as daily). When asked if it helps, he says "I guess". He says he only wants the pa in medication (oxycodone). I discussed that this is not appropriate treatment for IBD and ca n worsen his symptoms. 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 Throughout the interview frank esquivel was very upset and yelling. Attempts at de-escalation were not effective. I had spoken to the patient for six minutes before he handed the phone to his roommate and refused to speak to me. I was not able to encourage the patient to go to the ER if he develops a plan. I called the [facility] crisis line at [phone] and discussed the case with the counselo joseph. We agreed that there is a component of secondary gain with his SI and since he does not h ave a plan he is at a lower risk. If he were to develop a plan, the [facility] crisis line sh ould be called to send a counselor out to talk to the patient. If he were to have a more imm ediate plan (have a gun or jump off a bridge) she suggests calling 911. As he displays neith er of these high risk behaviors and refused to talk to me or the crisis line, we did not esc alate as above and hope he does reach out if he were to have advancing characteristics of SI . Will forward to Dr. Street and PCP Dr. Zhong to ensure that he will have an expedited vis it. elephone Encounter - Maxime White - 04/03/2017 7:47 PM PDTReceived email from Chandana about the VM she received from pt. I paged the on-call high school social science teacher, María Elena, immediately and asked if she would like t o call pt or if we should call 911 for a welfare check. María Elena suggested that she attempt to call patient and I should call the Crisis line so they could contact the patient. After María Elena and I disconnected, I received a second email from Chandana letting me know she h ad reached the on-call provider, Dr. Maya, and he would be calling the patient to check on hi m. I called the Crisis line and they assured me they would call the patient. Electronicall y signed by Maxime White at 04/03/2017 8:03 PM PDTTelephone Encounter - Aba Worthington - 04/03/2017 7:[address] PM [address]On [address] MD Dr. Maya returned paged and agreed to call and follow up with patient in regards to VM left on 04/03/17. elephone Encounter - Chandana Worthington - 04/03/2017 7:01 PM PDTLate Entry 04/03/17 9:58 AM: Pt called LVM stating "no gives a rats a* about him while he is here and so don't give a rats a* about him when he goes to commit suicide, ok." Pt celso prajapati don't call him no more we don't care about him and we are not getting a hermes from [facility], disability or nothing. Adithya RN, called Pt [facility] ( closed at 4:30 PM ), Called [facility] Main Pulmonary Function Technician had distribution sales manager Alexander schwartz, please follow up. documented in this encounter Plan of Treatment Not on filedocumented as of this encounter Visit Diagnoses Not on filedocumented in this encounter
--- OUTSIDE RECORDS SUMMARY | ~2020-07-14 | XMS | Encounter Summary ---
Demographics + + + | Address | [address] | | | [place] [address] | + + + | Home Phone [...] | Author | [facility] | | | and [place] | + + + | Organization | [facility] [...] Providers + +------+ + | Care Certified Athletic Trainer Name | Role | Phone | + [...] 2012 | | GASTROENTEROLOGY | [address] | (gastroesophageal | | | | [address] | [address], | reflux disease) | | | | [address] | [place] [address] | (Primary Dx) | | | | [address] | [phone] | | | | | [phone] | | | +--------+ + + + [...]
--- OUTSIDE RECORDS SUMMARY | ~2020-07-14 | XMS | Encounter Summary ---
Demographics + + + | Address | [address] | | | [place] [address] | + + + | Home Phone | | + + + | Preferred Language | Unknown | + + + | Marital Status | Single | + + + | Latter-Day Affiliation | CHR | + + + | Race | White | + + + | Ethnic Group | Not or | + + + Author + + + | Author | [facility] | + + + | Organization | [facility] | + + + | Address | Unknown | + + + | Phone | Unavailable | + + + Support + + +---------+ + | Name | Relationship | Address | Phone | + + +---------+ + | Thalia Armani | ECON | Unknown | | + + +---------+ + Care Team Providers + +------+ + | Care Director Women Name | Role | Phone | + +------+ + | Meaghan Zhong MD | PCP | | + +------+ + Encounter Details +--------+---------+ + + + | Date | Type | Department | Care Team | Description | +--------+---------+ + + + | 09/15/ | Office | Preoperative | 1, [facility] Senior Qa Engineer [address] | Other Complication | | 2006 | Visit | Medicine Clinic at | [address] | of Colostomy or | | | | [facility] 4th Floor [address] | [place] [address] | Enterostomy; Crohns | | | | [address] | | Disease (HCC); Other | | | | Mailcode: CH4S | | Specified | | | | [facility] | | Pre-Operative | | | | and Healing, | | Examination; | | | | Building 1,4th Floor | | Hemorrhagic Disorder | | | | [place], [place] | | due to Intrinsic | | | | [address] | | Circulating | | | | [phone] | | Anticoagulants | +--------+---------+ + + [...] + + + documented in this encounter Ashleigh Garcia - 09/15/2007 3:53 PM PSTSee Scanned H&P. [...] | + + + + + | [facility] | [address] | [place] [address] | | | PATHOLOGY | [address] | | | + + + + + | [facility] | [address] [place] [address] | [place] [address] | | | PATHOLOGY | [address] [...] | + + + + + | [facility] DEPARTMENT OF | [address] | [place] [address] | | | PATHOLOGY | [address] | | | + + + + + | [facility] DEPARTMENT OF | [address] | [place] [address] | | | PATHOLOGY | [address] [...] DEPARTMENT OF | [address] | [place] [address] | | | PATHOLOGY | [address] | | | + + + + + | [facility] DEPARTMENT OF | [address] | [place] [address] | | | PATHOLOGY | [address] [...] | + + + + + | [facility] DEPARTMENT OF | [address] | [place] [address] | | | PATHOLOGY | [address] | | | + + + + + | [facility] DEPARTMENT OF | [address] | [place] [address] | | | PATHOLOGY | [address] [...] Performed At | + + + | [id number] Estimated GFR > 60 mL/min/1.73 sq m if non- | [facility] | | [id number] Estimated GFR > 60 mL/min/1.73 sq m [...] | + + + + + | [facility] DEPARTMENT OF | [address] | [place] [address] | | | PATHOLOGY | [address] | | | + + + + + | [facility] DEPARTMENT OF | [address] | [place] [address] | | | PATHOLOGY | [address] [...] + + + + | PRODUCT | [id number] | | [facility] | | | UNIT [...] | + + + + + | [facility] DEPARTMENT OF | [address] | [place] [address] | | | PATHOLOGY | [address] | | | + + + + + | [facility] OF | [address] | [place] [address] | | | PATHOLOGY | [address] [...]
--- OUTSIDE RECORDS SUMMARY | ~2020-07-14 | XMS | Encounter Summary ---
Demographics + + + | Address | [address] | | | [place] [address] | + + + | Home Phone [...] + + + | Author | [facility] | + + + | Organization | [facility] | + + + | Address | Unknown | + + + | Phone | Unavailable | + + + Support + + +---------+ + | Name | Relationship | Address | Phone | + + +---------+ + | Thalia Armani | ECON | Unknown | | + + +---------+ + Care Team Providers + +------+ + | Care Community Nutrition Educator Name | Role | Phone | + +------+ + | Meaghan Zhong MD | PCP | | + +------+ + Reason for Visit + +--------+ + | Reason | Onset | Comments | | | Date | | + +--------+ + | Medication Refill | 09/26/ | | | | 2015 | | + +--------+ + Encounter Details +--------+ + + + + | Date | Type | Department | Care Team | Description | +--------+ + + + + | 12/30/ | Telephone | [facility] | [address], | Medication Refill | | 2015 | | [place] [address] | [place] | | | | | [address] [place] | | | | | | for Health and | | | | | | Healing, [address] | | | | | | [place], [place] | | | | | | [address] | | | | | | [phone] | | | +--------+ + + + [...] Telephone Encounter - Stacy Elder RN - 09/26/2016 8:34 AM PSTI spoke with Rachid Glez on the phone to discuss his voicemail he left. He is requesting a refill of his Chary lda. Informed him that a new prescription was sent on 08/18/16 with 3 refills, he should be able to contact his pharmacy to get another refill. He had no further questions. elephone Encounter - Arnel Rich - 09/26/2016 8:19 AM PST PATIENT LEFT VOICE MESSAGE WITH CAMPUS LEAD ASSEMBLER ON 09/25/16 AT 5:02 ] Who is calling? Rachid Glez Best number to reach you at? [phone] Best time to contact you? anytime Reason for call? Would like call back regarding medication refill from Dr Street. Advised caller that they will receive a call back next business day. Caller understands a nd is agreeable to this. documented in this encounte r Plan of Treatment Not on filedocumented as of this encounter Visit Diagnoses Not on filedocumented in this encounter"
--- OUTSIDE RECORDS SUMMARY | ~2020-07-14 | XMS | Encounter Summary ---
Demographics + + + | Address | [address] | | | [place] [address] | + + + | Home Phone | | + + + | Preferred Language | Unknown | + + + | Marital Status | Single | + + + | Latter Day Affiliation | CHR | + + + | Race | White | + + + | Ethnic Group | Not or | + + + Author + + + | Author | [facility] | + + + | Organization | [facility] | + + + | Address | Unknown | + + + | Phone | Unavailable | + + + Support + + +---------+ + | Name | Relationship | Address | Phone | + + +---------+ + | Thalia Armani | ECON | Unknown | | + + +---------+ + Care Team Providers + +------+ + | Care Roller Varnisher Name | Role | Phone | + [...] + + | 12/06/ | Abstract | [facility] | [address], | Medical Records | | 2015 | | [place] [address] | | Review | | | | [address] [facility] | | | | | | for Health and | | | | | | [place] [facility] [address] | | | | | | [place], [place] | | | | | | [address] | | | | | | [phone] | | | +--------+ + + + [...]
--- OUTSIDE RECORDS SUMMARY | ~2020-07-14 | XMS | Encounter Summary ---
Demographics + + + | Address | [address] | | | [place] [address] | + + + | Home Phone | | + + + | Preferred Language | Unknown | + + + | Marital Status | Single | + + + | Bahai Affiliation | 1013 | + + + | Race | White | + + + | Ethnic Group | Not or | + + + Author + + + | Author | [facility] | | | and [place] | + + + | Organization | [facility] | | | [...] Team Providers + +------+ + | Care Vat House Laborer Name | Role | Phone | + +------+ + | No, Physician | PCP | Unavailable | + +------+ + Encounter Details +--------+ + + + + | Date | Type | Department | Care Team | Description | +--------+ + + + + | 11/11/ | Hospital | [facility] | Andrew Perez | | | 2014 | Encounter | HOSPITAL EMERGENCY | [address] | | | | | [address] | [address] | | | | | [place], [place] | [place] [address] | | | | | [address] | [phone] | | | | | [phone] | | | +--------+ + + + [...] mouth | | 0 | 06/11/20 | 07/12/201 | | clidinium-chlordiaze | four times a [...] | | (NULYTELY WITH | dose. DRINK 09/29 PREP | | | | | | [...]
--- OUTSIDE RECORDS SUMMARY | ~2020-07-14 | XMS | Encounter Summary ---
Demographics + + + | Address | [address] | | | [place] [address] | + + + | Home Phone | | + + + | Preferred Language | Unknown | + + + | Marital Status | Single | + + + | Protestant Affiliation | 1013 | + + + | Race | White | + + + | Ethnic Group | Not or | + + + Author + + + | Author | [facility] | | | and [place] | + + + | Organization | [facility] [...] Team Providers + +------+ + | Care Host/Hostess Head Name | Role | Phone | + +------+ + | No, Physician | PCP | Unavailable | + +------+ + Encounter Details +--------+ + + + + | Date | Type | Department | Care Team | Description | +--------+ + + + + | 08/07/ | Hospital | [facility] | Josue Montes | | | 2013 | Encounter | HOSPITAL EMERGENCY | [address] | | | | | CENTER [address] | [address] | | | | | [place] | [place] [address] | | | | | [address] | [phone] | | | | | [phone] | | | +--------+ + + + [...]
--- OUTSIDE RECORDS SUMMARY | ~2020-07-14 | XMS | Clinical Summary ---
Demographics + + + | Address | [address] | | | [place] [address] | + + + | Home Phone | | + + + | Preferred Language | Unknown | + + + | Marital Status | Single | + + + | Mormon Affiliation | CHR | + + + [...] Team Providers + +------+ + | Care Traffic Rate Computer Name | Role | Phone | + +------+ + | Meaghan Zhong MD | PCP | | + +------+ + Source Comments PAT is fully live on both [facility] and [facility] Allergies + + + + + [...] Health Maintenance | Due Date | Last | Comments | | | | Done | | + + + + + | Influenza (Flu) | | 08/19/20 | | | vaccination (#1) | 0 | 16, | | | | | 08/14/20 | | | | | 15, | | | | | 07/03/20 | | | | | 15, | | | | | Addition | | | | | al | | | | | history | | | | | exists | | + + + + + | Pneumococcal | Completed | 08/14/20 | | | vaccination | | 15, | | | | | 07/03/20 | | | | | 15, | | | | | 07/03/20 | | | | | 15 | [...] | | | + +--------+ +--------+-------+---------+--------+ | [employer] MEDICA[employer] | [employer] | [id number] | | | | Medica | | [...] | [address] | | | al/Fam | | 1971 | [phone] | [place] [address] | | | david | | | 0 (Home) | | + +--------+ +--------+ + +
--- OUTSIDE RECORDS SUMMARY | ~2020-07-14 | XMS | Encounter Summary ---
Demographics + + + | Address | [address] | | | [place] [address] | + + + | Home Phone [...] Author | [facility] | | | and [place] | + + + | Organization | [facility] [...] Team Providers + +------+ + | Care Military Technology Manager Name | Role | Phone | [...] | [address] | [address] [facility], | | | | | [place], [place] | [place] [address] | | | | | [address] | [phone] | | | | | [phone] | | | +--------+ + + + [...]
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
--- OUTSIDE RECORDS SUMMARY | ~2020-07-14 | XMS | Clinical Summary ---
Demographics + + + | Address | [address] | | | [place] [address] | + + + | Home Phone | | + + + | Preferred Language | Unknown | + + + | Marital Status | Single | + + + | Episcopal Affiliation | 1013 | + + + | Race | White | + + + | Ethnic Group | Not or | + + + Author + + + | Author | [facility] | | | and [place] | + + + | Organization | [facility] [...] Team Providers + +------+ + | Care Electrical Automation Engineer Name | Role | Phone | + +------+ + | Emily Green DO | PCP | | + +------+ + Allergies + + + + + + | Active Allergy | Reactions | Severity | Noted | Comments | | | | | Date | | + + + + + + | Morphine | Nausea And Vomiting | Medium | 04/14/20 | shaking | | | | | 14 | | + + + + + + | Ketorolac | Other (See Comments) | Medium | 11/15/19 | "hurt for 2 weeks | | [...] 2 puffs inhaled | | 0 | 05/29 | | Activ | | HFA) 90 mcg/puff | every 4 hours as | | | 01/15 | | e | | inhaler | needed for shortness | | | 12 | | | | | of breath | | | | | | + + + +---------+------+------+-------+ | levothyroxine | Take 300 mcg by | | 0 | | | Activ | | (SYNTHROID) 125 mcg | mouth every morning | | | | | e | | tablet | (before breakfast). | | | | | | + + + +---------+------+------+-------+ | oxyCODONE | Take 10 mg by mouth | | 0 | | | Activ | | (ROXICODONE) 5 mg | every 4 hours as | | | | | e | | tablet | needed for Pain. | | | | | | + + + +---------+------+------+-------+ | ondansetron | Take 8 mg by mouth | | 0 | | | Activ | | (ZOFRAN ODT) 8 mg | every 8 hours as | | | | | e | | disintegrating | needed. | | | | | | | tablet | | | | | | | + + + +---------+------+------+-------+ | citalopram | Take 40 mg by mouth | | 0 | | | Activ | | (CELEXA) 40 mg | Daily. | | | | | e | | tablet | | | | | | | + + + +---------+------+------+-------+ | mesalamine | Take 1,200 mg by | | 0 | | | Activ | | (LIALDA) 1.2 G EC | mouth 2 times daily. | | | | | e | | tablet | | | | | | | + + + +---------+------+------+-------+ | rOPINIrole | Take 5 mg by mouth | | 0 | | | Activ | | (REQUIP) 5 MG tablet | nightly. | | | | | e | + + + +---------+------+------+-------+ Active Problems + + + | Problem | Noted Date | + + + | jail current use of systemic steroids | 06/21/2014 | + + + | HYPOTHYROIDISM | | + + + | ASTHMA | | + + + | CROHN'S DISEASE | | + + + | ABDOMINAL PAIN | | + + + | Preventative health care | | + + + + + | Overview: Colonoscopy: 10/23/10 - Normal except internal | | hemorrhoidsEGD: 10/23/10 - Hiatal hernia, reflux esophagitis, | | acute gastritis, duodenitis | + + + +---+ | GERD (gastroesophageal reflux disease) | | + +---+ | Depression | | + +---+ Immunizations + + + + | Name | Administration Dates | Next Due | + + + + | INFLUENZA PF | 08/19/2016 | | | QUAD(PED/ADOL/ADULT) | | | | ,PSKT or VIAL | | | + + + + | INFLUENZA PF | 08/21/2008 | | | TRIVALENT(PED/ADOL/A | | | | YOSEF)YULIYA | | | + + + + | INFLUENZA, | 08/14/2015, 07/03/2015, 08/21/2008 | | | UNSPECIFIED | | | | FORMULATION | | | + + + + | PNEUMOCOCCAL | 07/03/2015 | | | POLYSACCHARIDE | | | | 23-VALENT (PPSV23) | | | + + + + | PNEUMOCOCCAL, | 08/14/2015, 07/03/2015 | | | UNSPECIFIED | | | | FORMULATION | | | + + + + Family History + + +------+ + | Medical History | Relation | Name | Comments | + + +------+ + | Cancer | Father | | PROSTATE | + + +------+ + | Prostate cancer | Father | | | + + +------+ + | Asthma | Mother | | | + + +------+ + | Colon cancer | Mother | | | + + +------+ + | Heart surgery | Mother | | CABG x 2 | + + +------+ + | Other (see comment) | Mother | | HYPOTHYROIDISM | + + +------+ + | Stroke | Mother | | | + + +------+ + | Osteoarthritis | Sister | | | + + +------+ + + +------+ + + | Relation | Name | Status | Comments | + +------+ + + | Father | | Alive | at age 66 | + +------+ + + | Mother | | | colon cancer | | | | (Age | | | | | 76) | | + +------+ + + | Sister | | | | + +------+ + + Social History + + + [...] + + + | Blood Pressure | 98/70 | 12/10/2016 1:05 PM | | | | | PDT | | + + + + + | Pulse | 74 | 12/10/2016 1:05 PM | | | | | PDT | | + + + + + | Temperature | 36.4 C (97.5 F) | 04/09/2016 10:31 AM | | | | | PDT | | + + + + + | Respiratory Rate | 16 | 12/10/2016 1:05 PM | | | | | PDT | | + + + + + | Oxygen Saturation | 98% | 12/10/2016 1:05 PM | | | | | PDT | | + + + + + | Inhaled Oxygen | - | - | | | Concentration | | | | + + + + + | Weight | 53.9 kg (118 lb 13.3 | 12/10/2016 1:05 PM | | | | oz) | PDT | | + + + + + | Height | 160 cm (5' 2.99") | 12/10/2016 1:05 PM | | | | | PDT | | + + + + + | Body Mass Index | 21.06 | 12/10/2016 1:05 PM | | | | | PDT | | + + + + + Plan of Treatment + + + + + | Health Maintenance | Due Date | Last | Comments | | | | Done | | + + + + + | Vaccine: | | | | | Dtap/Tdap/Td (1 - | 9 | | | | Tdap) | | | | + + + + + | Primary Care | | 01/21/20 | | | Outreach (Intense | 6 | 16, | | | Risk) | | 03/22/20 | | | | | 14 | | + + + + + | Vaccine: Zoster (1 | | | | | of 2) | 0 | | | + + + + + | Vaccine: Influenza | | 08/19/20 | | | (#1) | 0 | 16, | | [...] filefrom Last 3 Months Insurance + +--------+ +--------+ +---------+--------+ | Payer | Benefi | Subscriber | Effect | Phone | Address | Type | | | t Plan | ID | srinivasan | | | | | | / | | Dates | | | | | | Group | | | | | | + +--------+ +--------+ +---------+--------+ | [employer] | [employer] | [id number] | | [phone] | | Medica | | MEDICAID HMO | HEALTH | | 014-Pr | 1 | | id | | | MDCD | | esent | | | | | | [place]MO [place] | | | | | | + +--------+ +--------+ +---------+--------+ + +--------+ +--------+ + + | Guarantor Name | Accoun | Relation to | Date | Phone | Billing Address | | | t Type | Patient | of | | | | | | | | | | + +--------+ +--------+ + + | Rachid Glez | Person | Self | [birth year] | [address] | | Jason | christy/Livan | | 1971 | [phone] | [place] [address] | | | david | | | 0 (Home) | | + +--------+ +--------+ + + Advance Directives + + + + + | Type | Date Recorded | Patient | Explanation | | | | Prosthodontist | | + + + + + | Power of | | | | | Contract Administrative Assistant | | | | + + + + + | Advance | 04/09/2016 9:38 | | | | Directive | AM | | | + + + + +
--- OUTSIDE RECORDS SUMMARY | ~2020-07-14 | XMS | Encounter Summary ---
Demographics + + + | Address | [address] | | | [place] [address] | + + + | Home Phone [...] Author | [facility] [...] Team Providers + +------+ + | Care Feed Elevator Worker Name | Role | Phone | + +------+ + | Emily Green DO | PCP | | + +------+ + Encounter Details +--------+ + + + + | Date | Type | Department | Care Team | Description | +--------+ + + + + | 04/10/ | Orders Only | [facility] [place] | Carmelo Patterson MD | Gastroesophageal | | 2016 | | GASTROENTEROLOGY | [address] | reflux disease, | | | | [address] | [place], [place] | esophagitis presence | | | | [address], [place] | [address] | not specified | | | | [address] | [phone] | (Primary Dx) | | | | [phone] | | | +--------+ + + + [...] Saritha Hickman RN - 04/10/2016 4:03 PM JAROCHODr. Leonardo asked that I order Prilosec 20mg qAM #90 with 3 refills at [facility]. documented in this encounter Plan of Treatment Not on filedocumented as of this encounter Visit Diagnoses + + | Diagnosis | + + | Gastroesophageal reflux disease, esophagitis presence not specified - Primary | + + documented in this encounter"
--- OUTSIDE RECORDS SUMMARY | ~2020-07-14 | XMS | Encounter Summary ---
Demographics + + + | Address | [address] | | | [place] [address] | + + + | Home Phone [...] + + + | Author | [facility] | + + + | Organization | [facility] | + + + | Address | Unknown | + + + | Phone | Unavailable | + + + Support + + +---------+ + | Name | Relationship | Address | Phone | + + +---------+ + | Thalia Armani | ECON | Unknown | | + + +---------+ + Care Team Providers + +------+ + | Care Business Management Consultant Name | Role | Phone | + +------+ + | Meaghan Zhong MD | PCP | | + +------+ + Reason for Visit + +--------+ + | Reason | Onset | Comments | | | Date | | + +--------+ + | Refill Request | 10/19/ | Franka | | | 2016 | | + +--------+ + Encounter Details +--------+--------+ + + + | Date | Type | Department | Care Team | Description | +--------+--------+ + + + | 10/19/ | Refill | Digestive Health | [address], | Refill Request | | 2015 | | Center at [facility] [address] | MD | (Benji) | | | | [address] | | | | | | for Health and | | | | | | Healing, [address] | | | | | | [place], [place] | | | | | | [address] | | | | | | [phone] | | | +--------+--------+ + + + [...] Telephone Encounter - Eric Weinstein MA - 10/19/2015 4:31 PM PSTLast fill 09/27/2015 Last labs 04/14/2014 CareEverywhereElectronically signed by Eric Weinstein MA at 016 4:34 PM PSTdocumented in this encounter Plan of Treatment Not on filedocumented as of this encounter Visit Diagnoses Not on filedocumented in this encounter"
--- OUTSIDE RECORDS SUMMARY | ~2020-07-14 | XMS | Encounter Summary ---
Demographics + + + | Address | [address] | | | [place] [address] | + + + | Home Phone | | + + + | Preferred Language | Unknown | + + + | Marital Status | Single | + + + | Tenriism Affiliation | CHR | + + + | Race | White | + + + | Ethnic Group | Not or | + + + Author + + + | Author | [facility] | + + + | Organization | [facility] | + + + | Address | Unknown | + + + | Phone | Unavailable | + + + Support + + +---------+ + | Name | Relationship | Address | Phone | + + +---------+ + | Thalia Armani | ECON | Unknown | | + + +---------+ + Care Team Providers + +------+ + | Care Car Shakeout Operator Name | Role | Phone | + +------+ + | Meaghan Zhong MD | PCP | | + +------+ + Reason for Visit + +--------+ + | Reason | Onset | Comments | | | Date | | + +--------+ + | Update from Patient | 03/12/ | | | | 2015 | | + +--------+ + Encounter Details +--------+ + + + + | Date | Type | Department | Care Team | Description | +--------+ + + + + | 03/12/ | Telephone | Digestive Health | [address], | Update from Patient | | 2016 | | Center at [facility] [address] | [place] | | | | | [address] [place] | | | | | | for Health and | | | | | | [facility], [address] | | | | | | [place], [place] | | | | | | [address] | | | | | | [phone] | | | +--------+ + + + [...] Telephone Encounter - Eric Weinstein MA - 03/12/2016 10:38 AM PDTUpdated Bro esquivel to see if any recent admissions. Spoke with [facility] regarding an update on how he is doing and if any recent admissions. He informed me that he's doing okay at this time. Symptoms have not changed much at all. He informed me that he has an EGD/Colonoscopy scheduled for March. He stated that he wanted to let Dr. Street know "thanks for everything he has done for m e." He had no questions or concerns.Electronically signed by Eric Weinstein MA at 6 10:52 AM PDTTelephone Encounter - Eric Weinstein MA - 03/12/2016 10:37 AM PDTFrom: Bebeto Street MD Sent: 03/12/2016 7:55 AM To: Eric Weinstein MA Subject: RE: Rosa Aguilar, Can you check in with [facility] and see if he has had any recent admissions? If he has, we should get those records. Kian documented in this encounter Plan of Treatment Not on filedocumented as of this encounter Visit Diagnoses Not on filedocumented in this encounter
--- OUTSIDE RECORDS SUMMARY | ~2020-07-14 | XMS | Encounter Summary ---
Demographics + + + | Address | [address] | | | [place] [address] | + + + | Home Phone [...] Author | [facility] | | | and [place] | + + + | Organization | [facility] Services [...] Team Providers + +------+ + | Care Wardrobe Specialist Name | Role | Phone | [...] [place] | | | | | | [address] | (Fax) | | | | | [phone] | | | +--------+ + + + [...]
--- OUTSIDE RECORDS SUMMARY | ~2020-07-14 | XMS | Encounter Summary ---
Demographics + + + | Address | [address] | | | [place] [address] | + + + | Home Phone [...] | Author | [facility] | | | and [place] | + + + | Organization | [facility] [...] Team Providers + +------+ + | Care Digital Content Manager Name | Role | Phone | + +------+ + | No, Physician | PCP | Unavailable | + +------+ + Encounter Details +--------+ + + + + | Date | Type | Department | Care Team | Description | +--------+ + + + + | 08/18/ | [facility] | [facility] | [facility] | | | 2013 | Encounter | HOSPITAL EMERGENCY | MD [address] | | | | | CENTER [address] | [facility] | | | | | [address] [place] | [place] [address] | | | | | [address] | [phone] | | | | | [phone] | | | +--------+ + + + [...] - 1.030 | EXTERNAL | | | [place], | | | LAB | | | [...]
--- OUTSIDE RECORDS SUMMARY | ~2020-07-14 | XMS | Encounter Summary ---
Demographics + + + | Address | [address] | | | [place] [address] | + + + | Home Phone | | + + + | Preferred Language | Unknown | + + + | Marital Status | Single | + + + | Catholic Affiliation | CHR | + + + | Race | White | + + + | Ethnic Group | Not or | + + + Author + + + | Author | [facility] | + + + | Organization | [facility] | + + + | Address | Unknown | + + + | Phone | Unavailable | + + + Support + + +---------+ + | Name | Relationship | Address | Phone | + + +---------+ + | Thalia Armani | ECON | Unknown | | + + +---------+ + Care Team Providers + +------+ + | Care Head Filter Press Tender Name | Role | Phone | + +------+ + | Meaghan Zhong MD | PCP | | + +------+ + Reason for Visit + +--------+ + | Reason | Onset | Comments | | | Date | | + +--------+ + | Refill Request | 08/18/ | | | | 2015 | | + +--------+ + Encounter Details +--------+--------+ + + + | Date | Type | Department | Care Team | Description | +--------+--------+ + + + | 08/18/ | Refill | Digestive Health | [address], | Refill Request | | 2015 | | Center at [facility] [address] | MD | | | | | [facility] | | | | | | for Health and | | | | | | Healing, [address] | | | | | | [place], [place] | | | | | | [address] | | | | | | [phone] | | | +--------+--------+ + + + [...] Telephone Encounter - Eric Weinstein MA - 08/18/2016 11:21 AM PSTMedication pended and routed to provider. Patient No Showed 05/30/2016 appointment. Patient did not complete CT 11: 24 AM PSTTelephone Encounter - Mallory Helm - 08/18/2016 10:58 AM PSTPatient calling to request refill of mesalamine 1.2 g oral tablet,delayed release (DR/EC) Surgery/Procedure: No Patient will be out of this medication in 0 days. Patient is out. Patient is taking n/a every n/a What is your pain scale: n/a Can you picking crew supervisor the script if need to or should it be mailed?: Mail - [address] [place] [address] Patient informed there is a 72 hour refill policy. Patient requests call back when this is complete. Is it alright to leave a detailed message? Yes Pharmacy: Pharmacy Preferences: [facility] documented in this enco unter Plan of Treatment Not on filedocumented as of this encounter Visit Diagnoses Not on filedocumented in this encounter"
--- OUTSIDE RECORDS SUMMARY | ~2020-07-14 | XMS | Encounter Summary ---
Demographics + + + | Address | [address] | | | [place] [address] | + + + | Home Phone [...] Author + + + | Author | [facility] | + + + | Organization | [facility] | + + + | Address | Unknown | + + + | Phone | Unavailable | + + + Support + + +---------+ + | Name | Relationship | Address | Phone | + + +---------+ + | Thalia Armani | ECON | Unknown | | + + +---------+ + Care Team Providers + +------+ + | Care Ciso Name | Role | Phone | + +------+ + | Meaghan Zhong MD | PCP | | + +------+ + Reason for Visit + +--------+ + | Reason | Onset | Comments | | | Date | | + +--------+ + | Medication Question | 12/12/ | | | | 2015 | | + +--------+ + Encounter Details +--------+ + + + + | Date | Type | Department | Care Team | Description | +--------+ + + + + | 12/12/ | Telephone | Digestive Health | [address], | Medication Question | | 2015 | | Center [place] [address] | [place] | | | | | [address] [place] | | | | | | for Health and | | | | | | Healing, [address] | | | | | | [place], [place] | | | | | | [address] | | | | | | [phone] | | | +--------+ + + + [...] this encounter Miscellaneous Notes Telephone Encounter - Nenita Su MA - 12/14/2015 1:31 PM PDTI called and s/w Mikki woodson and provided this information. He will follow up with pharmacy as to why he wasn't notifie d that his Rx being ready. He had no other questions from our office. elephone Encounter - Nenita Su MA - 1:29 PM PDTI received notification from [facility] that no PA was required. Uploaded to chart. I called pts pharmacy and confirmed Rx has been filled and waiting for the patient si nce 12/08 when Rx was sent in. Will notify pt.Electronically signed by Nenita Su MA at 0 12/14/2015 2:02 PM PDTTelephone Encounter - Sirena Garvey - 12/14/2015 10:45 AM PDTPt sanchez d asking to speak with a supervisor real estate office. Pt said that at his appt on 12/[address] Dr[address] was incr easing his prescription for Lialda 4.8g/day to 6 tablets a day. I spoke with Denise. We are sti ll waiting on prior authorization. Nenita will follow up with insurance today. Reassured patient that we are working on the prior authorization. He said he spoke with [facility] today and they did not have an prior auth request on file. He ga ve us [phone]. I explained that the prior auth process my be through a different sectio n or medication senior oracle database administrator which he understood. I offered our patient advocates office t he declined. He will await our call. e kenyahosoniya Encounter - Arnel Rich - 12/13/2015 9:28 AM PDTPatient called in asking about ge tting script for his crohn's medication. Informed him that as of last information PA was be ing worked on. Patient is concerned as he said he was into ED again for his issues. Patien t disconnected before he could be transferred to [place]. Electronically signed by Arnel fermin 12/13/2015 9:30 AM PDTTelephone Encounter - Nenita Su MA - 12/13/2015 9:[facility]. The call was disconnected bef ore patient could receive a response from clinical team. PA is still pending. We will call him when we have a response. He is also welcome to call h is insurance to inquire about the status of his PA. documented in this encounter Plan of Treatment Not on filedocumented as of this encounter Visit Diagnoses Not on filedocumented in this encounter"
--- OUTSIDE RECORDS SUMMARY | ~2020-07-14 | XMS | Encounter Summary ---
Demographics + + + | Address | [address] | | | [place] [address] | + + + | Home Phone [...] Author + + + | Author | [facility] | | | and [place] | + + + | Organization | [facility] [place] | | [...] Team Providers + +------+ + | Care In House Counsel Name | Role | Phone | + +------+ + | Emily Green DO | PCP | | + +------+ + Encounter Details +--------+ + + + + | Date | Type | Department | Care Team | Description | +--------+ + + + + | 01/08/ | [facility] | Shirley Frankel, | | | 2016 | Encounter | [facility] | BROADCAST PROGRAM DIRECTOR [address] | | | | | [facility] | [facility], [place] | | | | | [address] [facility], | [address] | | | | | [place] [address] | | | | | | [phone] | | | +--------+ + + + [...]
--- OUTSIDE RECORDS SUMMARY | ~2020-07-14 | XMS | Encounter Summary ---
Demographics + + + | Address | [address] | | | [place] [address] | + + + | Home Phone | | + + + | Preferred Language | Unknown | + + + | Marital Status | Single | + + + | Yarsanism Affiliation | 1013 | + + + | Race | White | + + + | Ethnic Group | Not or | + + + Author + + + | Author | [facility] | | | and [place] | + + + | Organization | [facility] | | [...] Team Providers + +------+ + | Care Septic Tank Service Technician Name | Role | Phone | + +------+ + | Emily Green DO | PCP | | + +------+ + Encounter Details +--------+ + + + + | Date | Type | Department | Care Team | Description | +--------+ + + + + | 04/28/ | Documentati | [facility] | Carmelo Patterson MD | | | 2016 | on | GASTROENTEROLOGY | [address] | | | | | [address] [facility] | | | | | [address] | [address] | | | | | [address] | [phone] | | | | | [phone] | | | +--------+ + + + [...]
--- OUTSIDE RECORDS SUMMARY | ~2020-07-14 | XMS | Encounter Summary ---
Demographics + + + | Address | [address] | | | [place] [address] | + + + | Home Phone [...] + + + | Author | [facility] | | | and [place] | + + + | Organization | [facility] [place] | | | and [...] Team Providers + +------+ + | Care Twister Tender Paper Name | Role | Phone | + +------+ + PCP | Unavailable | + +------+ + Encounter Details +--------+ + + + + | Date | Type | Department | Care Team | Description | +--------+ + + + + | 09/19/ | Hospital | [facility] | Epi Wheeler | | | 2009 | Encounter | HOSPITAL XRAY [address] | MD [place] [address] | | | | | [address] | [facility] [address] | | | | | [place] | [place] [address] | | | | | [address] | [phone] | | | | | [phone] | | | +--------+ + + + [...]
--- OUTSIDE RECORDS SUMMARY | ~2020-07-14 | XMS | Encounter Summary ---
Demographics + + + | Address | [address] | | | [place] [address] | + + + | Home Phone [...] Author + + + | Author | [facility] | | | and [place] | + + + | Organization | [facility] | | | [...] Team Providers + +------+ + | Care Appeals Court Associate Justice Name | Role | Phone | + [...] | [address], [place] | [place] [address] | | | | | [address] | [phone] | | | | | [phone] | | | +--------+ + + + [...] | + +-------+ + + + | Erythrocyte | 8 | <=15 mm/h | EXTERNAL | | | | | | LAB | | | Sedimentati | | | | | | on Rate | | | | | + +-------+ [...]
--- OUTSIDE RECORDS SUMMARY | ~2020-07-14 | XMS | Encounter Summary ---
Demographics + + + | Address | [address] | | | [place] [address] | + + + | Home Phone [...] Author | [facility] | | | and [place] | + + + | Organization | [facility] [...] Team Providers + +------+ + | Care Grocery Bagger Name | Role | Phone | + [...] | [address], [place] | [place] [address] | | | | | [address] | [phone] | | | | | [phone] | | | +--------+ + + + [...] | | 15 | 5 | | (SAMY WITH | dose. DRINK 1/2 PREP | [...] +-------+ + + + | Erythrocyte | 9 | <=15 mm/h | EXTERNAL [...]
--- OUTSIDE RECORDS SUMMARY | ~2020-07-14 | XMS | Encounter Summary ---
Demographics + + + | Address | [address] | | | [place] [address] | + + + | Home Phone [...] Author + + + | Author | [facility] [place] | | | and [place] | + + + | Organization | [facility] | | | [...] Providers + +------+ + | Care Manager Market Name | Role | Phone | + [...] | | | unspecified | [address] | [place], | | | | | site | [place], [place] | [place] [address] | | | | | Abdominal | [address] | Phone: | | | | | pain, | Phone: | [phone] | | | | | unspecified | [phone] | Fax: | | | | | site Other | Fax: | [phone] | | | | | opiates and | [phone] | | | | | | related [...] | | | | | | | [place] | | | | | | | COLONOSCOPY | | | | | | | FLX DX | | | | | | | W/COLLJ SPEC | | | | | | | WHEN PFRMD | | | | | | | [place] | | | | | | | COLONOSCOPY | | | | | | | W/BIOPSY | | | | | | | SINGLE/MULTI | | | | | | | PLE [place] | | | | | | | COLSC FLX | | | | | | | W/RMVL OF | | | | | | | TUMOR POLYP | | | | | | | LESION SNARE | | | | | | | TQ NH | | | | | | | ANESTH,INTES | | | | | | | MARLIN,SCOPE,L | | | | | | | OW | | | | | | | 02>PEND | | | | | | | MODA | | | | | | | VALDEZ | | | +--------+ + + + [...] + + | 10/30/ | Telephone | [facility] | Carmelo Patterson MD | Other (Schedule | | 2014 | | GASTROENTEROLOGY | [address] | colonoscopy) | | | | [address] | [place], [place] | | | | | [address] | [address] | | | | | [address] | [phone] | | | | | [phone] | | | +--------+ + + + [...] Will verify with Dr. Patterson IVCS versus kalyn puentes. Patient states he uses [place] as needed, not daily. Patient has been scheduled for procedure date 11/08/14, arrival time 0930, at [facility] Patient instruction sheet has been reviewed [...] call patient back.Electro nically signed by Monique Mckoen at 10/30/2014 8:53 AM PSTdocumented in this [...] Expires: | | LEONARDO | | | ([facility]) Abdominal | 11/02/2015 | | | | [...]
--- OUTSIDE RECORDS SUMMARY | ~2020-07-14 | XMS | Encounter Summary ---
Demographics + + + | Address | [address] | | | [place] [address] | + + + | Home Phone [...] | [facility] [place] | | | and [...] Team Providers + +------+ + | Care Balancer Name | Role | Phone | + +------+ + | Emily Green DO | PCP | | + +------+ + Encounter Details +--------+ + + + + | Date | Type | Department | Care Team | Description | +--------+ + + + + | 12/10/ | [facility] | [facility] | Emily Green, | | | 2017 | Encounter | [facility] | DO [address] | | | | | [address] | [place] [address] | | | | | [address] [place], | [phone] | | | | | [place] [address] | | | | | | [phone] | | | +--------+ + + + [...]
--- OUTSIDE RECORDS SUMMARY | ~2020-07-14 | XMS | Encounter Summary ---
Demographics + + + | Address | [address] | | | [place] [address] | + + + | Home Phone [...] + | Author | [facility] [place] | | | and [place] | [...] Team Providers + +------+ + | Care Machine Cage Maker Name | Role | Phone | [...] Description | +--------+--------+ + + + | 09/24/ | Refill | [place] [facility] | Emily Green, | Medication Refill | | 2017 | | [facility] | DO [address] | | | | | MEDICAL [address] | [place] [address] | | | | | [address] [place], | [phone] | | | | | [place] [address] | | | | | | [phone] | | | +--------+--------+ + + + [...]
--- OUTSIDE RECORDS SUMMARY | ~2020-07-14 | XMS | Encounter Summary ---
Demographics + + + | Address | [address] | | | [place] [address] | + + + | Home Phone [...] Author + + + | Author | [facility] [place] | | | and [place] | + + + | Organization | [facility] [place] | | | [...] Team Providers + +------+ + | Care Commercial Lines Manager Name | Role | Phone | + +------+ + | Emily Green DO | PCP | | + +------+ + Encounter Details +--------+ + + + + | Date | Type | Department | Care Team | Description | +--------+ + + + + | 08/19/ | [facility] | [facility] | Emily Green, | | | 2015 | Encounter | [facility] | DO [address] [place] | | | | | MEDICAL [address] | [place] [address] | | | | | [address] [place], | [phone] | | | | | [place] [address] | | | | | | [phone] | | | +--------+ + + + [...]
--- OUTSIDE RECORDS SUMMARY | ~2020-07-14 | XMS | Encounter Summary ---
Demographics + + + | Address | [address] | | | [place] [address] | + + + | Home Phone | | + + + | Preferred Language | Unknown | + + + | Marital Status | Single | + + + | Temple Affiliation | CHR | + + + [...] Team Providers + +------+ + | Care Back Roll Lathe Operator Name | Role | Phone | + +------+ + | Meaghan Zhong MD | PCP | | + +------+ + Reason for Visit + + + | Reason | Comments | + + + | Vomiting | | + + + AUTH/CERT +--------+--------+ + + + + | Status | Reason | Specialty | Diagnoses / | Referred By | Referred To | | | | | Procedures | Contact | Contact | +--------+--------+ + + + + | | | Emergency | | | Emergency | | | | Medicine | | | Dept Hrc | | | | | | | [address] | | | | | | | [address] | | | | | | | [facility] | | | | | | | Hospital | | | | | | | [place], [place] | | | | | | | [address] | | | | | | | Phone: | | | | | | | [phone] | +--------+--------+ + + + + Encounter Details +--------+ + + + + | Date | Type | Department | Care Team | Description | +--------+ + + + + | 12/10/ | Emergency | [facility] Emergency | | | | 2015 | | Department [address] | | | [address] | | | | | | [facility] | | | | | | [place], [place] | | | | | | [address] | | | | | | [phone] | | | +--------+ + + + [...] | 06/11/20 | | | HFA) 90 | every 4 hours as | | | 12 | | | mcg/actuation | needed for shortness | | | | | | inhalation HFA | of breath | | | | | | aerosol inhaler | | | | | | + + + +---------+ + + | CITALOPRAM 40 mg | Take 40 mg by mouth | | 0 | 03/03/20 | | | oral tablet | once daily. | | | 15 | | + + + +---------+ + + | levothyroxine | Take by mouth. | | 0 | | | | (SYNTHROID) 125 mcg | | | | | | | oral tablet | | | | | | + + + +---------+ + + | LEVOTHYROXINE 200 | Take 200 mcg by | | 0 | 05/01/20 | | | mcg oral tablet | mouth once daily. | | | 15 | | + + + +---------+ + + documented as of this encounter Progress Notes Ekaterina Lopez MD - 12/11/2015 11:18 AM PDTLocation[facility]: ADITI Glez, pt of Dr. Brown with Crohn's colitis is there with abdominal pain an d vomiting. Vomiting controlled but patient asking for pain medication and RN inquiring abou t naroctic prescription. Dr. brown has not prescribed narcotics for Mr. Glez. After l ast office visit 12/06/15, plan was to get OSH records from ER visits and consider escalation of therapy. He was to continue Lialda. RN notes pt ran out of Lialda and he says that is wh y he is having pain. Records received 12/07/15 but no recent imaging or endoscopic evaluation. If no additional records available or no work up done, pt will likely need assessment of di sease activity with colonoscopy and imaging (if not done). RN says Mr. Glez was last at [facility] in Oct and did not have testing. Asked that they provide him with supply of mesalamine (dose of 4.8 g/day) until his refill can be authorized. Will need further work up, either here or locally in preparation for esca lation of therapy. Prefer to avoid narcotics. (routing to Dr. Brown's MA/RN to try and obtain more recent records and contact Mr. Antwan munoz for follow up of ER visit). 11: 24 AM PDTdocumented in this encounter Miscellaneous Notes Plan of Care - Chayito Perez, FIRE CONTROLMAN - 12/11/2015 11:17 AM PDTDate of service: 04/03/2017 E vening [tried to add this encounter in outpatient but couldn't] Problem: SW Goals & Interventions Goal: Psychosocial Coping/Adjustment Reason for referral: concern re pt with possible Suicidal Ideation Referral source: page & phone call with Maxime White of [facility] Assessment/Intervention: Mr. White called evening SW to discuss information appearing to re flect that pt is suicidal (as of 10 am this morning); Mr. White rec'd this info very late in the day today. SW called pt's home phone and was not able to leave a message; but then pt called SW back. Pt was very agitated and verbally aggressive. Pt shared that pt had "just go t off the phone with a doctor. Yes, I did make that call this morning. I'm very frustrated. I have Crohn's disease and I need a new stomach. No one is helping me. And I'm going to be h omeless at the end of the month. You're going to find my body on the street." SW provided ac tive listening and then encouraged pt to call [facility], and pt declined to take the number and declined to reach out for help from [facility] saying "I don't want to listen to anyone whining in my ear who isn't going to actually help me. I need a new stomach . I'm not getting any help." Pt ended call after assuring SW "I'm not going to do anything stupid. You're not going to read my name in the paper or in the news." ADONAY then called [facility] at and shared concerns regarding this patient, including his current agitation and worries about future homelessness, etc. The Crisis crisis worker shared that another worker named Lena took a call earlier from Maxime White, and was consulting with the crisis glass lined tank repairer about what to do next, and would update us about whether they ar e authorized to do an outreach call to this patient. Lena called back from [facility] ( e crisis line) and encouraged this SW to call [facility] and share my concerns w ith them, and maybe they would do a welfare check. SW called [facility]'s office. They have an address for pt at [address] [place] [address], and they will go do a welfare check on this pt and call back (to ED SW) to give an update. Barriers to care: pt's financial situation adding stress to an already challenging physical condition. Collaboration with treatment team/CM: ADONAY encouraged Mr. White to call pt directly and/or [facility] and/or call [facility] [the correct number is ] and relate information so crisis team members could follow up. Plan: No other social work needs identified at this time. Social work referral completed. Please see medical and ancillary service notes for other needs and care plans. Please re- refer to social work if additional social work needs are identified. María Elena Perez LCSW Evening/Weekend Social Work Pager #[phone] [facility] Mitchel Perla - 12/11/2015 11:16 AM Romi Lopez connected with referring to discuss pt, Consult only, no indication for inter hospital transfer at this time [facility] Mitchel Vel[facility]quez - 12/11/2015 11:04 AM Romi Lopez (gi) paged documented in this encounter Plan of Treatment Not on filedocumented as of this encounter Visit Diagnoses Not on filedocumented in this encounter
--- OUTSIDE RECORDS SUMMARY | ~2020-07-14 | XMS | Encounter Summary ---
Demographics + + + | Address | [address] | | | [place] [address] | + + + | Home Phone [...] Author + + + | Author | [facility] [place] | | | and [place] | + + + | Organization | [facility] | | | [...] Team Providers + +------+ + | Care Facing End Trimmer Name | Role | Phone [...] | | 2014 | Encounter | [facility] | DO [address] | | | | | MEDICAL [address] | [place] [address] | | | | | [address] [facility], | [phone] | | | | | [place] [address] | | | | | | [phone] | | | +--------+ + + + [...]
--- OUTSIDE RECORDS SUMMARY | ~2020-07-14 | XMS | Encounter Summary ---
Demographics + + + | Address | [address] | | | [place] [address] | + + + | Home Phone [...] Author + + + | Author | [facility] [place] | | | and [place] | + + + | Organization | [facility] [place] | | | and [...] Team Providers + +------+ + | Care Thermodynamicist Name | Role | Phone | + +------+ + | No, Physician | PCP | Unavailable | + +------+ + Encounter Details +--------+ + + + + | Date | Type | Department | Care Team | Description | +--------+ + + + + | 05/18/ | Hospital | [place] [facility] | Conversion | | | 2013 | Encounter | [facility] | Transaction, | | | | | [address] [place] | Provider Unknown | | | | | [place] | | | | | | [address] | (Fax) | | | | | [phone] | | | +--------+ + + + [...] +--------+ + + + | C. DIFFICILE DNA | Routin | 05/18/2014 | | Results for this | | AMPLIFIED | e | 3:24 PM | | procedure are in the | | | | PDT | | results section. | + +--------+ + + + | FECAL LEUKOCYTES | Routin | 05/18/2014 | | Results for this | | | e | 3:23 PM | | procedure are in the | | | | PDT | | results section. | + +--------+ + + + documented in this encounter Results Clostridium difficile DNA amplified (05/18/2014 3:24 PM PDT) + + + + + + | Component | Value | Ref Range | Performed | Pathologist | | | | | At | Signature | + + + + + + | Clostridium | NEGATIVE | CDIFF | EXTERNAL | | | Diff | | | LAB | | + + + + + + | Internal QC | POSITIVE | POSITIVE | EXTERNAL | | | | | | LAB | | + + + + + + + + | Specimen | + + | | + + + +---------+ + + | Performing | Address | City/State/Zipcode | Phone Number | | Organization | | | | + +---------+ + + | EXTERNAL LAB | | | | + +---------+ + + Fecal leukocytes (05/18/2014 3:23 PM PDT) + + + + + + | Component | Value | Ref Range | Performed | Pathologist | | | | | At | Signature | + + + + + + | Lactoferrin | POSITIVE | NEGATIVE | EXTERNAL | | | , Qual | | | LAB | | + + + + + + | Internal QC | POSITIVE | POSITIVE | EXTERNAL | | | | | [...]
--- OUTSIDE RECORDS SUMMARY | ~2020-07-14 | XMS | Encounter Summary ---
Demographics + + + | Address | [address] | | | [place] [address] | + + + | Home Phone [...] Author | [facility] [place] | | | and [...] Team Providers + +------+ + | Care Lab Courier Name | Role | Phone | + +------+ + | No, Physician | PCP | Unavailable | + +------+ + Encounter Details +--------+ + + + + | Date | Type | Department | Care Team | Description | +--------+ + + + + | 08/14/ | Hospital | [place] [facility] | Emily Green, | | | 2014 | Encounter | [facility] | DO [address] | | | | | MEDICAL [address] | [place] [address] | | | | | [address] [facility], | [phone] | | | | | [place] [address] | | | | | | [phone] | | | +--------+ + + + [...]
--- OUTSIDE RECORDS SUMMARY | ~2020-07-14 | XMS | Encounter Summary ---
Demographics + + + | Address | [address] | | | [place] [address] | + + + | Home Phone | | + + + | Preferred Language | Unknown | + + + | Marital Status | Single | + + + | Quaker Affiliation | 1013 | + + + | Race | White | + + + | Ethnic Group | Not or | + + + Author + + + | Author | [facility] [place] | | | and [place] [...] Team Providers + +------+ + | Care Psychologist Counseling Name | Role | Phone | + +------+ + PCP | Unavailable | + +------+ + Encounter Details +--------+ + + + + | Date | Type | Department | Care Team | Description | +--------+ + + + + | 03/21/ | Hospital | [facility] | | | | 2008 | Encounter | MED [facility] | | | | | | CONV DEPT [address] | | | | | | [place], | | | | | | [place] [address] | | | | | | [phone] | | | +--------+ + + + [...]
--- OUTSIDE RECORDS SUMMARY | ~2020-07-14 | XMS | Encounter Summary ---
Demographics + + + | Address | [address] | | | [place] [address] | + + + | Home Phone [...] | Author | [facility] | | | and [place] | + + + | Organization | [facility] [...] Team Providers + +------+ + | Care Newspaper Clipper Name | Role | Phone | + +------+ + | No, Physician | PCP | Unavailable | + +------+ + Encounter Details +--------+ + + + + | Date | Type | Department | Care Team | Description | +--------+ + + + + | 11/29/ | Emergency | [facility] | Alex Isaac | Flank pain | | 2015 | | [facility] | DO [address]an [address] | | | | [address] | [address] | | | | | [address] | [place] | | | | | [place] | [address] | | | | | [address] | [phone] | | | | | [phone] | | | +--------+ + + + [...] Provider Notes by Reg Nguyen PA-C at 11/30/151 Author: Reg Nguyen PA-C Service: Emergency Department Author Type: Physician Ivelisse hedrick - Certified Filed: 11/30/15 0253 Date of Service: 11/30/152242 Status: Signed Business Process Specialist: Reg Nguyen PA-C (Physician [employer] Paralegal - Certified) Cosigner: Alex sanderson DO at 12/01/15 1601 Procedures [facility] IN [facility] History of Present Illness Patient Identification [...] including 2 visits to this ED and [place] on 11/18/15. He has an ROB report [...] Value Ref Range Date/Time Urine microscopic only [[id number]] (Abnormal) Collected: 11/30/152247 Order Status: Completed Updated: 11/30/15 2310 WBC 6-10 0 - 5 /hpf RBC 1-5 0 - 2 /hpf EPITHELIAL 6-10 /lpf BACTERIA 2+ (A) NONE SEEN Crystals 4+ /hpf Urinalysis Comments CULTURE TO FOLLOW Lipase [[id number]] Collected: 11/30/152237 Order Status: Completed Specimen Information: Blood Updated: 11/30/152306 LIPASE 233 73 - 393 U/L Comprehensive metabolic panel [[id number]] (Abnormal) Collected: 11/30/152237 Order Status: Completed Specimen [...] U/L EGFR 58 (L) >60 mL/min/1.73m2 Amylase [[id number]] Collected: 11/30/152237 Order Status: Completed Specimen Information: Blood Updated: 11/30/152306 AMYLASE 105 25 - 115 U/L Urinalysis (reflex to microscopic/reflex to culture) [[id number]] (Abnormal) Collected: 11/30/152247 Order Status: Completed Specimen Information: Urine / Urine, Clean Catch Updated: 01/11 COLOR UA YELLOW CLARITY CLOUDY Specific Parker, UA 1.015 1.001 - 1.035 LEUKOCYTE ESTERASE NEGATIVE NEGATIVE NITRITE NEGATIVE NEGATIVE UROBILINOGEN 0.2 <1.1 mg/dL PROTEIN 30 (A) NEGATIVE mg/dL PH,URINE 7.5 4.6 - 8.0 BLOOD NEGATIVE NEGATIVE KETONES NEGATIVE NEGATIVE mg/dL BILIRUBIN NEGATIVE NEGATIVE GLUCOSE NEGATIVE NEGATIVE mg/dL CBC with differential [[id number]] (Abnormal) Collected: 11/30/152237 Order Status: Completed Specimen [...] No new medications Reg Nguyen PA-C 11/30/15 3240 kristopher philip in this encounter Plan of [...] GROWTH | | | Testing performed at [facility], [address] | | | [place] [address] | | + + + + +---------+ [...] | | | | performed at [facility], [address] | | LAB | | | | [address], | | | | | | [place] [address] | | | | + + + + + + | Clarity, | CLOUDYComment: Testing | | EXTERNAL | | | Urine | performed at [facility], [address] | | LAB | | | | [address] [place], | | | | | | [place] [address] | | | | + + + + + + | Specific | 1.015Comment: Testing | 1.001 - 1.035 | EXTERNAL | | | Parker, | performed at [facility], [address] | | LAB | | | Urine | [address] [place] [address], | | | | | | [place] [address] | | | | + + + + + + | Leukocyte | NEGATIVEComment: Testing | | EXTERNAL | | | Esterase, | performed at [facility], [address] | | LAB | | | Urine | [address] [place], | | | | | | [place] [address] | | | | + + + + + + | Nitrite, | NEGATIVEComment: Testing | | EXTERNAL | | | Urine | performed at [facility], [address] | | LAB | | | | [address] [place], | | | | | | [place] [address] | | | | + + + + + + | Urobilinoge | 0.2Comment: Testing | mg/dL | EXTERNAL | | | n, Urine | performed at [facility], [address] | | LAB | | | | [address] [place], | | | | | | [place] [address] | | | | + + + + + + | Protein, | 30 (A)Comment: Testing | mg/dL | EXTERNAL | | | Urine | performed at [facility], [address] | | LAB | | | | [address] [place], | | | | | | [place] [address] | | | | + + + + + + | pH, Urine | 7.5Comment: Testing | 4.6 - 8.0 | EXTERNAL | | | | performed at [facility], [address] | | LAB | | | | [address], [place], | | | | | | [place] [address] | | | | + + + + + + | Blood, | NEGATIVEComment: Testing | | EXTERNAL | | | Urine | performed at [facility], [address] | | LAB | | | | [address], | | | | | | [place] [address] | | | | + + + + + + | Ketones | NEGATIVEComment: Testing | mg/dL | EXTERNAL | | | | performed at [facility], [address] | | LAB | | | | [address], | | | | | | [place] [address] | | | | + + + + + + | Bilirubin, | NEGATIVEComment: Testing | | EXTERNAL | | | Urine | performed at [facility], [address] | | LAB | | | | [address], | | | | | | [place] [address] | | | | + + + + + + | Glucose, | NEGATIVEComment: Testing | mg/dL | EXTERNAL | | | Urine | performed at [facility], [address] | | LAB | | | | [address] [place], | | | | | | [place] [address] | | | | + + + [...] | | | | performed at [facility], [address] | | LAB | | | | [address] [place], | | | | | | [place] [address] | | | | + + + + + + | RBC, UA | 1-5Comment: Testing | 0 - 2 /hpf | EXTERNAL | | | | performed at [facility], [address] | | LAB | | | | [address] [place], | | | | | | [place] [address] | | | | + + + + + + | Epithelial | 6-10Comment: Testing | /lpf | EXTERNAL | | | Cells | performed at [facility], [address] | | LAB | | | | [address] [place], | | | | | | [place] [address] | | | | + + + + + + | Bacteria, | 2+ (A)Comment: Testing | | EXTERNAL | | | UA | performed at [facility], [address] | | LAB | | | | [address], | | | | | | [place] [address] | | | | + + + + + + | Crystals | 4+Comment: | /hpf | EXTERNAL | | | | PHOSPHATESTesting | | LAB | | | | performed at [facility], [address] | | | | | | [address] [place] [address], | | | | | | [place] [address] | | | | + + + + + + | Urinalysis | CULTURE TO | | EXTERNAL | | | Comments | FOLLOWComment: Testing | | LAB | | | | performed at [facility], [address] | | | | | | [address] [place], | | | | | | [place] [address] | | | | + + + [...] | | | | performed at [facility], [address] | K/uL | LAB | | | | [address] [place], | | | | | | [place] [address] | | | | + + + + + + | Non- | 4.38Comment: Testing | 4.20 - 5.70 | EXTERNAL | | | Red Blood | performed at [facility], [address] | M/uL | LAB | | | Cells | [address] [place], | | | | | Counted | [place] [address] | | | | + + + + + + | Hemoglobin | 14.7Comment: Testing | 13.2 - 17.0 | EXTERNAL | | | | performed at [facility], [address] | g/dL | LAB | | | | [address] [place], | | | | | | [place] [address] | | | | + + + + + + | Hematocrit, | 43.3Comment: Testing | 39.0 - 50.0 % | EXTERNAL | | | POC | performed at [facility], [address] | | LAB | | | | [address] [place], | | | | | | [place] [address] | | | | + + + + + + | MCV | 98.9Comment: Testing | 80.0 - 100.0 fl | EXTERNAL | | | | performed at [facility], [address] | | LAB | | | | [address] [place] [address], | | | | | | [place] [address] | | | | + + + + + + | MCH | 33.5Comment: Testing | 27.0 - 34.0 pg | EXTERNAL | | | | performed at [facility], [address] | | LAB | | | | [address] [place] [address], | | | | | | [place] [address] | | | | + + + + + + | MCHC | 33.9Comment: Testing | 32.0 - 35.5 | EXTERNAL | | | | performed at [facility], [address] | g/dL | LAB | | | | [address] [place], | | | | | | [place] [address] | | | | + + + + + + | RDW-CV | 45.5Comment: Testing | 37 - 53 fl | EXTERNAL | | | | performed at [facility], [address] | | LAB | | | | [address] [place], | | | | | | [place] [address] | | | | + + + + + + | Platelet | 229Comment: Testing | 150 - 400 K/uL | EXTERNAL | | | Count | performed at [facility], [address] | | LAB | | | Plasma | [address], | | | | | | [place] [address] | | | | + + + + + + | MPV | 7.9Comment: Testing | fl | EXTERNAL | | | | performed at [facility], [address] | | LAB | | | | [address] [place], | | | | | | [place] [address] | | | | + + + + + + | Differentia | AUTOMATEDComment: | | EXTERNAL | | | l Type | Testing performed at | | LAB | | | | [facility], [address], | | | | | | [place] [address] | | | | + + + + + + | % Segmented | 55.91Comment: Testing | % | EXTERNAL | | | | performed at [facility], [address] | | LAB | | | Neutrophils | [address] [place] [address], | | | | | | [place] [id number] | | | | + + + + + + | % | 34.40Comment: Testing | % | EXTERNAL | | | Lymphocytes | performed at [facility], [address] | | LAB | | | | [address], | | | | | | [place] [address] | | | | + + + + + + | % Monocytes | 6.21Comment: Testing | % | EXTERNAL | | | | performed at [facility], [address] | | LAB | | | | [address] [place] [address], | | | | | | [place] [address] | | | | + + + + + + | % | 2.11Comment: Testing | % | EXTERNAL | | | Eosinophils | performed at [facility], [address] | | LAB | | | | [address], | | | | | | [place] [address] | | | | + + + + + + | % Basophils | 1.37Comment: Testing | % | EXTERNAL | | | | performed at [facility], [address] | | LAB | | | | [address] [place], | | | | | | [place] [address] | | | | + + + + + + | Absolute | 5.22Comment: Testing | 1.90 - 7.40 | EXTERNAL | | | Segmented | performed at [facility], [address] | K/uL | LAB | | | Neutrophils | [address] [place] [address], | | | | | | [place] [address] | | | | + + + + + + | Absolute | 3.21Comment: Testing | 1.00 - 3.90 | EXTERNAL | | | Lymphocytes | performed at [facility], [address] | K/uL | LAB | | | | [address], | | | | | | [place] [address] | | | | + + + + + + | Absolute | 0.58Comment: Testing | 0.00 - 0.80 | EXTERNAL | | | Monocytes | performed at [facility], [address] | K/uL | LAB | | | | [address] [place], | | | | | | [place] [address] | | | | + + + + + + | Absolute | 0.20Comment: Testing | 0.00 - 0.50 | EXTERNAL | | | Eosinophils | performed at [facility], [address] | K/uL | LAB | | | | [address] [place], | | | | | | [place] [address] | | | | + + + + + + | Absolute | 0.13 (H)Comment: Testing | 0.00 - 0.10 | EXTERNAL | | | Basophils | performed at [facility], [address] | K/uL | LAB | | | | [address], | | | | | | [place] [address] | | | | + + + [...] | | | | performed at [facility], [address] | | LAB | | | | [address], | | | | | | [place] [address] | | | | + + + [...] | | | | performed at [facility], [address] | | LAB | | | | [address], | | | | | | [place] [address] | | | | + + + [...] | | | | performed at [facility], [address] | mmol/L | LAB | | | | [address], | | | | | | [place] [address] | | | | + + + + + + | K | 4.1Comment: Testing | 3.5 - 4.9 | EXTERNAL | | | | performed at [facility], [address] | mmol/L | LAB | | | | [address] [place] [address], | | | | | | [place] [address] | | | | + + + + + + | Cl | 109Comment: Testing | 99 - 109 mmol/L | EXTERNAL | | | | performed at [facility], [address] | | LAB | | | | [address], | | | | | | [place] [address] | | | | + + + + + + | CO2 | 26Comment: Testing | 23 - 32 mmol/L | EXTERNAL | | | | performed at [facility], [address] | | LAB | | | | [address] [place] [address], | | | | | | [place] [address] | | | | + + + + + + | Anion Gap | 13Comment: Testing | 5 - 20 mmol/L | EXTERNAL | | | | performed at [facility], [address] | | LAB | | | | [address] [place], | | | | | | [place] [address] | | | | + + + + + + | Glucose, | 108 (H)Comment: Testing | 65 - 99 mg/dL | EXTERNAL | | | Fasting | performed at [facility], [address] | | LAB | | | | [address], | | | | | | [place] [address] | | | | + + + + + + | BUN | 25Comment: Testing | 8 - 25 mg/dL | EXTERNAL | | | | performed at [facility], [address] | | LAB | | | | [address], | | | | | | [place] [address] | | | | + + + + + + | Creatinine | 1.41 (H)Comment: Testing | 0.70 - 1.30 | EXTERNAL | | | | performed at [facility], [address] | mg/dL | LAB | | | | [address], | | | | | | [place] [address] | | | | + + + + + + | BUN/Creatin | 18Comment: Testing | | EXTERNAL | | | ine Ratio | performed at [facility], [address] | | LAB | | | | [address], | | | | | | [place] [address] | | | | + + + + + + | Calcium | 8.7Comment: Testing | 8.5 - 10.5 | EXTERNAL | | | | performed at [facility], [address] | mg/dL | LAB | | | | [address], | | | | | | [place] [address] | | | | + + + + + + | Protein, | 6.3Comment: Testing | 6.3 - 8.2 g/dL | EXTERNAL | | | Total | performed at [facility], [address] | | LAB | | | | [address], | | | | | | [place] [address] | | | | + + + + + + | Albumin | 3.5 (L)Comment: Testing | 3.6 - 5.0 g/dL | EXTERNAL | | | | performed at [facility], [address] | | LAB | | | | [address], | | | | | | [place] [address] | | | | + + + + + + | Globulin | 2.8Comment: Testing | 1.3 - 4.9 g/dL | EXTERNAL | | | | performed at [facility], [address] | | LAB | | | | [address], | | | | | | [place] [address] | | | | + + + + + + | A/G Ratio | 1.2Comment: Testing | 1.0 - 2.4 | EXTERNAL | | | | performed at [facility], [address] | | LAB | | | | [address], | | | | | | [place] [address] | | | | + + + + + + | Bilirubin | 0.3Comment: Testing | 0.1 - 1.5 mg/dL | EXTERNAL | | | Total | performed at [facility], [address] | | LAB | | | | [address] [place], | | | | | | [place] [address] | | | | + + + + + + | ALP, | 92Comment: Testing | 35 - 115 U/L | EXTERNAL | | | External | performed at [facility], [address] | | LAB | | | | [address] [place], | | | | | | [place] [address] | | | | + + + + + + | AST | 21Comment: Testing | 10 - 45 U/L | EXTERNAL | | | | performed at [facility], [address] | | LAB | | | | [address] [place], | | | | | | [place] [address] | | | | + + + + + + | ALT | 41Comment: Testing | 10 - 65 U/L | EXTERNAL | | | | performed at [facility], [address] | | LAB | | | | [address], | | | | | | [place] [id number] | | | | + + + [...] | | | | | at [facility], [address] | | | | | | [place], [place] | | | | | | [address] | | | | + + + [...]
--- OUTSIDE RECORDS SUMMARY | ~2020-07-14 | XMS | Encounter Summary ---
Demographics + + + | Address | [address] | | | [place] [address] | + + + | Home Phone [...] Author | [facility] | | | and [place] | + + + | Organization | [facility] Services [...] + +------+ + | Care Animal Husbandry Manager Name | Role | Phone | [...] | [address] | | | | | [address] | | | | | | [place], [place] | | | | | | [address] | | | | | | [phone] | | | +--------+ + + + [...]
--- OUTSIDE RECORDS SUMMARY | ~2020-07-14 | XMS | Encounter Summary ---
Demographics + + + | Address | [address] | | | [place] [address] | + + + | Home Phone [...] + + + | Author | [facility] | | | and [place] | + + + | Organization | [facility] | | [...] Providers + +------+ + | Care Health Analytics Consultant Name | Role | Phone | + +------+ + PCP | Unavailable | + +------+ + Encounter Details +--------+ + + + + | Date | Type | Department | Care Team | Description | +--------+ + + + + | 01/18/ | Hospital | [facility] | | | | 2008 | Encounter | [facility] | | | | | | CONVERSION | | | | | | DEPARTMENT [address] | | | | | | [address] | | | | | | [place] | | | | | | [address] | | | | | | [phone] | | | +--------+ + + + [...]
--- OUTSIDE RECORDS SUMMARY | ~2020-07-14 | XMS | Encounter Summary ---
Demographics + + + | Address | [address] | | | [place] [address] | + + + | Home Phone [...] Author + + + | Author | [facility] | | | and [place] | + + + | Organization | [facility] [place] | | | and [...] Team Providers + +------+ + | Care Geometry Professor Name | Role | Phone | [...] | [address] [place] | [place] [address] | | | | | [address] | [phone] | | | | | [phone] | | | +--------+ + + + [...]
--- OUTSIDE RECORDS SUMMARY | ~2020-07-14 | XMS | Encounter Summary ---
Demographics + + + | Address | [address] | | | [place] [address] | + + + | Home Phone | | + + + | Preferred Language | Unknown | + + + | Marital Status | Single | + + + | Judaism Affiliation | 1013 | + + + | Race | White | + + + | Ethnic Group | Not or | + + + Author + + + | Author | [facility] | | | and [...] Providers + +------+ + | Care Manager Gaming Name | Role | Phone | + +------+ + | No, Physician | PCP | Unavailable | + +------+ + Reason for Visit +--------+--------+ + | Reason | Onset | Comments | | | Date | | +--------+--------+ + | Other | 11/07/ | Reschedule procedure | | | 2015 | | +--------+--------+ + Encounter Details +--------+ + + + + | Date | Type | Department | Care Team | Description | +--------+ + + + + | 11/07/ | Telephone | [facility] | Carmelo Patterson MD | Other (Reschedule | | 2015 | | GASTROENTEROLOGY | [address] | procedure) | | | | [address] [facility] | [place], [place] | | | | | [address] [place], [place] | [address] | | | | | [address] | [phone] | | | | | [phone] | | | +--------+ + + + [...] documented as of this encounter Miscellaneous Notes Addendum Note - Ese Saavedra RN - 11/14/2014 9:22 AM PST Addended by: ESE SAAVEDRA on: 11/14/2014 09:22 Modules accepted: Orders elephone Encounter - Ese Saavedra RN - 11/07/2014 5:05 PM PSTSpoke with patient who stated he was treated for acute pancreatitis and was discharged today. Patient rescheduled his colonoscopy to 10/[address] Patterson. I sent a message to ARDEN Talamantes to update the procedure date and time. elephone Encounter - Ese Saavedra RN - 11/07/2014 9:53 AM PSTTried to reach Thalia to reschedule procedure for tomorrow. LVM for her to return my call. Telephone Encounter - Carissa Roque - 11/07/2014 9:09 AM PSTPatient is calling to resche dule his procedure. He is in the hospital right now due to his pancreas. Please call Thalia . documented in this encou nter Plan of Treatment Not on filedocumented as of this encounter Visit Diagnoses Not on filedocumented in this encounter"
--- OUTSIDE RECORDS SUMMARY | ~2020-07-14 | XMS | Encounter Summary ---
Demographics + + + | Address | [address] | | | [place] [address] | + + + | Home Phone [...] + + + | Author | [facility] | | | and [place] | + + + | Organization | [facility] | | | [...] Providers + +------+ + | Care Inspector Metal Fabricating Name | Role | Phone | + +------+ + | No, Physician | PCP | Unavailable | + +------+ + Encounter Details +--------+ + + + + | Date | Type | Department | Care Team | Description | +--------+ + + + + | 09/13/ | [facility] | [facility] | Emily Green, | | | 2014 | Encounter | HOSPITAL [facility] | DO [address] | | | | | [address] [place] | [place] [address] | | | | | [place], [place] | [phone] | | | | | [address] | | | | | | [phone] | | | +--------+ + + + [...]
--- OUTSIDE RECORDS SUMMARY | ~2020-07-14 | XMS | Encounter Summary ---
Demographics + + + | Address | [address] | | | [place] [address] | + + + | Home Phone [...] + + + | Author | [facility] [place] | | | and [place] | + + + | Organization | [facility] [place] | | [...] Team Providers + +------+ + | Care Wrecking Supervisor Name | Role | Phone | [...] | | | | | | CT | | | | | | | COLONOSCOPY, | | | | | | | DIAGNOSTIC | | | | | | | CT | | | | | | | [...] Description | +--------+---------+ + + + | 04/14/ | Surgery | [facility] | Carmelo Patterson MD | EGD / COLONOSCOPY | | 2013 | | MED CTR MP INTRA OP | [address] | | | | | [address] | [place], [place] | | | | | [place] | [address] | | | | | [address] | [phone] | | | | | [phone] | | | +--------+---------+ + + + [...] the physician who did your procedure at [phone] if you have any questions or experience any of the following: Increasing abdominal pain, nausea, or vomiting. Chills and fever over 101F. New abdominal swelling or bloating. Signs of rectal bleeding (black or red stool. If you cannot get a hold of your physician, then call the [facility] [phone] . If necessary, report to the Emergency Department at [facility]. Quit smoking: If you smoke or have [...] from previous H&P or assessment and plan. Dee mata signed by Carmelo Patterson MD at 04/14/2014 11:55 AM PDTWoods, Reg Varela MD - 4 5:01 PM PDT Subjective: Patient ID: Rachid Glez is a 43 y.o. male. HPI Comments: See dictation Other Associated symptoms include abdominal pain, fatigue and vomiting. Filed Vitals: 03/22/14 1620 BP: 100/60 Pulse: 70 Temp: 36.8 C (98.3 F) Resp: 16 PainSc: 6 No Known Allergies Past Medical History Diagnosis Date Crohn's disease (HCC) hospitalized 11/03/12-11/07/12 at [facility] for crohn's flare Asthma Hypothyroidism Hx [...] documented in this e ncounter Procedure Notes ONLATONIA SCAN [facility] - 04/18/2014 12:00 AM PDTAssociated Order(s): PATHOLOGY - EXTERNAL SCANEle ctronically signed by Chandra Macdonald at 04/19/2014 4:[address] [facility] - 04/14/2014 1 2:00 AM PDTAssociated Order(s): PATHOLOGY - EXTERNAL SCAN NLATONIA SCAN [facility] - 04/14/2014 12:00 AM PDTAssociated Order(s): COLONOSCOPY NLATONIA SCAN [facility] - 04/14/2014 12:00 AM PDTAssociated Order(s): EGDElectronically signed by Chandra Macdonald at 12:36 PM PDTdocumented in this encounter Miscellaneous Notes Miscellaneous - ONBASE SCAN [facility] - 04/20/2014 12:00 AM PDT lan of Care - [facility] SCAN [facility] - 04/17/2014 12:00 AM PDTElec tronically signed by [facility] at 04/17/2014 11:53 AM PDTPlan of Care - [facility] SCAN [facility] - 04/17/2014 12:00 AM PDT is cellaneous - [facility] SCAN [facility] - 04/17/2014 12:00 AM PDT iscellaneous - ONBASE SCAN [facility] - 04/17/2014 12:00 AM PDTElectro nically signed by latonia [facility] at 04/17/2014 11:53 AM PDTdocumented in this [...] | [facility] | | GastroenterologyPatient Name: Rachid GlezProcedure Date: | PROVATION | | 04/14/2014 11:49 AMMRN: [id number] #: [id number] of : | | | 1970Admit Type: AmbulatoryAge: 43Room: [facility] 02Gender: MaleNote | | | Status: FinalizedAttending MD: Carmelo Patterson [facility]cedure: | | | Upper GI endoscopyIndications: Epigastric abdominal pain, | | | Nausea with vomitingProviders: Carmelo Patterson MD, | | | Monique Ling RN, Johana | | | ADITI Jerez, RUBY NORTON, Harbor Engineer, Ashwin Wright MD | | | (Anesthesia [...] the anesthesiologist and the | | | air moving technician in the pre-procedure area in the [...] On: 04/14/2014 11:49 AM | | | [facility], [address] [place] [address] | | | [address] | | | - Normal esophagus. | [...] On: 04/14/2014 11:49 AM | | | [facility], [address] [place] [address] | | | [address] | | + + -+ + + [...] | PROVATION | | 04/14/2014 11:47 AMMRN: [id number] #: [id number] of : | | | 1970Admit Type: AmbulatoryAge: 43Room: [facility] 02Gender: MaleNote | | | Status: FinalizedAttending MD: Carmelo Patterson, [facility]cedure: | | | ColonoscopyIndications: Abdominal painProviders: | | | Carmelo Patterson MD, Monique Ling RN, Johana | | | ADITI Jerez, RUBY NORTON, Harbor Engineer, Ashwin | | | MD Adriana (Anesthesia [...] the anesthesiologist and the | | | air moving technician in the pre-procedure area in the [...] On: 04/14/2014 | | | 11:47 AM [facility], [address] [facility], | | | [place] [address] | | | colon. No specimens collected. [...] On: 04/14/2014 11:47 AM | | | [facility], [address] [facility], [place], [place] | | | [address] | | + + -+ + + [...] pain, unspecified site | + + | Regional enteritis of unspecified site | + + documented in this encounter Administered Medications + +--------+---------+------+------+------+ | Medication Order | MAR | Action | Dose | Rate | Site | | | Action | Date | | | | + +--------+---------+------+------+------+ + +---+ | fentaNYL 50 mcg/mL injection | | | Starting Thu04/14/14 at 1247, For | | | 1 dose, AWILDA RENE: cabinet | | | override, | | + +---+ | | | + +---+ + +-------+ +--------+---+--------+ | fentaNYL injection 25 mcg 25 | Given | 04/14/20 | 25 mcg | | Right | | mcg, Intravenous, ONCE, Fri | | 14 1:05 | | | [...] PDT | | | | | Starting Thu04/14/14 at 1236, | | | | | | | Recovery/Phase I | | | | | | + +-------+ +------+---+---+ +---+---+ | | | +---+---+ documented in this encounter
--- OUTSIDE RECORDS SUMMARY | ~2020-07-14 | XMS | Encounter Summary ---
Demographics + + + | Address | [address] | | | [place] [address] | + + + | Home Phone [...] Author | [facility] [place] | | | and [place] | + + + | Organization | [facility] [...] Team Providers + +------+ + | Care Port Traffic Manager Name | Role | Phone | [...] | | | disease | | [address] [place] | | | | | without | | [place], | | | | | complication | | [place] [address] | | | | | , | | Phone: | | | | | unspecified | | [phone] | | | | | gastrointest | | Fax: | | | | | inal tract | | [phone] | | | | | location | [...] | | | | | | | OR | | | | | | | COLONOSCOPY | | | | | | | FLX DX | | | | | | | W/COLLJ SPEC | | | | | | | WHEN PFRMD | | | | | | | OR | | | | | [...] + | 04/09/ | Anesthesia | [facility] | Nima Lynn MD | | | 2016 | Event | MED CTR MP INTRA OP | [address] | | | | | [address] | [place] | | | | | [place] | [address] | | | | | [address] | | | | | | [phone] | | | +--------+ + + + [...] 04/09/16 1155 by | | eral | pquz-tgt-txugag catheter system; | Echo Jefferson, | Radha E | | IV | 20 gauge, 1 1/4 in length; | RN | Be, RN | | | intradermal injection, topical | [...] Nima Lynn MD - 04/09/2016 12:27 PM PDTFormattin g of this note might be different from the original. ANESTHESIA POSTANESTHESIA EVALUATION Rachid Glez 45 y.o. male 1970 [id number] Procedure(s) EGD / COLONOSCOPY (N/A ) Cooperates? [...] signed by Nima Lynn MD 04/09/2016 12:28 [facility] nesthesia Preprocedur e Evaluation - Nima Lynn MD - 04/09/2016 9:22 AM PDT ANESTHESIA PREANESTHESIA EVALUATION Rachid Glez 45 y.o. male 1970 [id number] Procedure(s): EGD / COLONOSCOPY (N/A ) Medical [...]
--- OUTSIDE RECORDS SUMMARY | ~2020-07-14 | XMS | Encounter Summary ---
Demographics + + + | Address | [address] | | | [place] [address] | + + + | Home Phone [...] + +------+ + | Care Head Of Sales Promotion Name | Role | Phone | + +------+ + | Meaghan Zhong MD | PCP | | + +------+ + Reason for Visit + +--------+ + | Reason | Onset | Comments | | | Date | | + +--------+ + | Update from Patient | 02/20/ | | | | 2016 | | + +--------+ + Encounter Details +--------+ + + + + | Date | Type | Department | Care Team | Description | +--------+ + + + + | 02/20/ | Telephone | [facility] | [address], | Update from Patient | | 2017 | | Center at [facility] [address] | [place] | | | | | [address] | | | | | | for Health and | | | | | | [facility], [address] | | | | | | [place], [place] | | | | | | [address] | | | | | | [phone] | | | +--------+ + + + [...] encounter Miscellaneous Notes Telephone Encounter - Stacy Elder, ADITI - 03/06/2017 1:06 PM PDTCT scan faxed to [facility] at: [phone] I spoke with Rachid Glez on the phone to let him know that the order has been faxed and he should get a call from them next week to schedule. Asked that he please try to sched ule as soon as possible in order to give us more information for the next steps. He understo od. ----- Message ----- From: Angi Mo Sent: 03/06/2017 12:57 PM To: Stacy Elder RN AUTH#[id number] 02/10/17-05/11/17. SAME AUTH HE HAD FOR [facility] INTERNAL CT SCAN BUT THEY C HANGED LOCATION. PATIENT DOES NEED TO BE AWARE THAT HIS OOP COST MIGHT BE HIGHER THIS MAY NOT BE A HOSPITAL THAT PARTICIPATES WITH HIS MODA PLAN. HE WOULD NEED TO CONTACT [facility] ABOUT THIS AND IF HE WANTS TO CHANGE AGAIN? HE NEEDS TO CALL [facility] DIRECTLY. THANKS, k elephone Encounter - Stacy Elder RN - 02/27/2017 4:33 PM PDTI spoke with Rachid Glez on the phone to discuss the location he wants his CT scan done. He requested it be done at [facility] in [place], [place]. CT scan reordered as external and Routed to [facility] team. elephone Encounter - Any Solo - 02/27/2017 4:32 P M PDTPatient calling back and wanting to speak with the ADITI Cobian RN COnnected call elephone Encounter - Stacy Elder RN - 02/27/2017 3:20 PM PDTI spoke with Rachid Glez o n the phone to discuss getting imaging done locally. He wants to have the CT scan done in [facility], but could not confirm the name of the facility. He is going to get that, then call back. He had no further questions. ----- Message ----- From: Nilton Street MD Sent: 02/27/2017 3:12 PM To: Stacy Elder RN Yes, local imaging. Thank you Chetna. ----- Message ----- From: Stacy Elder RN Sent: 02/27/2017 3:08 PM To: Nilton Street MD ----- Message from Stacy Elder RN sent at 02/27/2017 3:08 PM PDT ----- [facility] will accept Medicaid, the issue is that it is 2[place]5 hrs away from where [place] lives and he has a hard time coming here. I doubt he will be able to ge t there very easily. Local imaging? Thanks, Steph elephone Encoun ter - Stacy Elder RN - 02/27/2017 1:[address] and he would lik e to move forward with a pain management referral. No local pain management clinics will accept Medicaid (Tried [facility], [facility], [facility], [facility] does not have a p ain management clinic) The closest pain clinic that will accept Medicaid is [facility] in [place] (which is 2.5 hrs away from [place]). Fax number is: [phone] signed by Stacy Elder RN at 02/27/2017 3:08 PM PDTTelephone Encounter - Stacy Elder RN - 12:17 PM PDTI spoke with Rachid Glez on the phone to discuss his PCP and pa in medications. He went in at 0900 this morning to see his PCP and his PCP refused to prescr abby pain medications. Per Presybeterian's report, Dr. Ramirez stated that we need to be prescribing the pain medicat ions. He again stated that he cannot travel up [place] for imaging unless he has something for pain. Unable to speak with Dr. Ramirez's office due to everyone being at lunch. They do not have any direct lines to contact someone from Dr. Ramirez's team. I was advised to call after 1:[address]. elephone Encounter - Any Solo - 02/27/2017 12:15 PM PDTPatient LVM on 02/27 at 929AM Patient seen the local doctor and is still not prescribing him anything. He stated that the doctor told him we need to prescribe it. Electronically signed by Any Solo at 2016 12:16 PM PDTTelephone Encounter - Stacy Elder RN - 02/26/2017 1:08 PM PDTCalled Vivian Ramirez's office at [facility] to discuss Presybeterian's care. It is important that we k now why he is experiencing so much pain and if it is related to inflammation. That is why we are wanting to get the CT scan completed. Asked Romario, with Dr. Ramirez's office, to please see Presybeterian again urgently and presc ribe something for pain, so that he is able to come up to [facility] to get the imaging completed. He will call Presybeterian and offer an appointment tomorrow to be seen. Reiterated that the goal is to have some sort of pain management in order to complete the d iagnostics we are wanting. He understood. Will touch base with Presybeterian tomorrow afternoon to ensure he is seen by Dr. Ramirez. Per TE from Dr. Street on 01/28/17 "I spoke with Dr. Stefano Ramirez on 01/27/17 regarding Presybeterian's upcoming appointment. We discussed Presybeterian's planned diagnostics, including CT enterography and capsule endoscopy. We discussed a short-course of pain medications until these diagnostics are completed. Dr. Ramirez discussed that his office does not use oxycodone. He will plan to have Presybeterian sign a pain contract for combination narcotic/Tylenol short-acting medications. "Electronica lly signed by Stacy Elder RN at 02/26/2017 1:17 PM PDTTelephone Encounter - Chetna Elder RN - 02/26/2017 10:50 AM PDTAttempted to call PCP 3 times, unable to get through. Will try again next week. Telephone Encounter - Stacy Elder RN - 02/20/2017 1:[address] Rosas n - plan to discuss care with Dr. Street when he is back. elephone Encounter - Soniya Rivas - 02/20/2017 1 :46 PM PDTPatient asked info be passed on to Dr Street, did not want to talk to medical mohsen thakur. He said "I am tired of being passed around from to and being a damn pin cushion. I am not going to see any more fuc Drs." Patient was not hostile, just very frustrated and thankful to have the info passed to Dr Street. Per RN, routed to dept with exact christine biage. documented in this encounter Plan of Treatment Not on filedocumented as of this encounter Visit Diagnoses + + | Diagnosis | + + | Crohn's disease with complication, unspecified gastrointestinal tract location (HCC) - | | Primary | + + documented in this encounter
--- OUTSIDE RECORDS SUMMARY | ~2020-07-14 | XMS | Encounter Summary ---
Demographics + + + | Address | [address] | | | [place] [address] | + + + | Home Phone | | + + + | Preferred Language | Unknown | + + + | Marital Status | Single | + + + | Yazdanism Affiliation | CHR | + + + | Race | White | + + + | Ethnic Group | Not or | + + + Author + + + | Author | [facility] | + + + | Organization | [facility] | + + + | Address | Unknown | + + + | Phone | Unavailable | + + + Support + + +---------+ + | Name | Relationship | Address | Phone | + + +---------+ + | Thalia Armani | ECON | Unknown | | + + +---------+ + Care Team Providers + +------+ + | Care Controls Engineer Name | Role | Phone | + +------+ + | Meaghan Zhong MD | PCP | | + +------+ + Reason for Visit + +--------+ + | Reason | Onset | Comments | | | Date | | + +--------+ + | Update from Patient | 03/11/ | | | | 2016 | | + +--------+ + Encounter Details +--------+ + + + + | Date | Type | Department | Care Team | Description | +--------+ + + + + | 03/11/ | Telephone | [facility] | [address], | Update from Patient | | 2017 | | Center at [facility] [address] | [place] | | | | | [address] | | | | | | for Health and | | | | | | [facility], [address] | | | | | | [place], [place] | | | | | | [address] | | | | | | [phone] | | | +--------+ + + + [...] this encounter Miscellaneous Notes Telephone Encounter - Andrew Glasgow - 12/17/2018 7:19 AM PDTThis encounter has been admin istratively closed with the authorization of the [facility] Committee. elephone Encounter - Stacy Elder RN - 03/26/2017 11:52 AM PDTI spoke with Rachid Glez on the phone close the loop on the next steps from our perspective. Explained that we want him to complete the CT scan and that the orders are at [facility]. He understood and said that he will call [facility] to get scheduled. Provided him with the main number to the hospital and told him to request radiology schedul ing. He stated that the best way to contact him is via phone (current number is in the chart). Will call [facility] in 2 weeks to see if the CT scan has been completed. elephone Encounter - Stacy Elder RN - 03/25/2017 3:29 PM PDTManager contacted. Electronically signed by Stacy Elder RN at 3:39 PM PDTTelephone Encounter - Stacy Elder RN - 03/25/2017 2:40 PM PDTForwa rded to provider. Called Nahomi Francois to see if Rachid has completed his CT scan yet or is scheduled. [facility] Radiology has tried calling Rachid twice to get scheduled with no response back. Per my last discussion with Rachid, it is essential that he get the CT scan done so we k now what is causing his pain. He has not scheduled this yet. elephone Encounter - Shena Regan - 03/25/2017 2:36 PM PDTPatient left on [facility] line on 03/25/17 at 11:2 8 am. Patient stated Thalia (his fiance per demographics) is moving him out because she cannot h andle his pain anymore. Patient stated "thank you for your help." Did not request call back. elephone Encounter - Stacy Elder RN - 03/13/2017 9:24 AM PDTRouted to provider. elephone Kevin - Shena Regan - 03/13/2017 9:18 AM PDTPatient called wanting to get a message to Dr. Street. Patient stated "I have been seeing him (Dr. Street) for 9 years on and off now, and what has he done for me. I've looked through all the paper work and I can't see anything that he has done." Patient disconnected. Routing for documentation. elephone Encounter - Nilton Street MD - 03/12/2017 12:36 PM PDTI left a voicemail for Rachid regarding the power barker operator message he placed this morning. I again reviewed the national movement (including such organizations as the CDC) to have pr escription of narcotic pain medications be undertaken in primary care offices. Subspecialty offices such as are not equipped for the necessary training to monitor such patients and provide pain contracts, with appropriate testing. The goal of the subspecialty office, [facility], is to work on identifying a cause (e.g. Inflammation in Crohn's disease) and prescribin g treatment to alleviate the pain due to the cause (e.g. Prednisone). Finally, I mentioned the excellent work that my nurse, Stacy Elder, has done in helping Rachid find a PCP a fter his previously broken pain contract. I relayed that our older adult social work specialist will be in touch with him to help him find a suitable PCP who can potentially institute a new pain contract. elephone Encounter - Stacy Elder RN - 03/12/2017 8:43 A M PDTForwarded to provider to call the patient. elephone Encounter - Arnel Rich - 03/12/2017 8:39 AM PDTForma tting of this note might be different from the original. PATIENT LEFT VOICE MESSAGE WITH [facility]AMP[facility]ING W[facility]ER ON 03/12/17 AT 06:48 AM Who is calling? Rachid Glez Best number to reach you at? [phone] Best time to contact you? today Reason for call? Pt called to speak to 's sales assistant institutional sales, he is nataliya; please call back Advised caller that they will receive a call back next business day. Caller understands a nd is agreeable to this. elephone Encounter - Stacy Elder RN - 03/11/2017 10:48 AM PDTRouted to social work to help with finding a PCP. El ectronically signed by Stacy Elder RN at 03/11/2017 10:49 AM PDTTelephone Encounter - Arnel Fenton - 03/11/2017 10:08 AM PDTPatient called in stating that if he is to have pain me ds from PCP, then needs to locate a PCP who will prescribe pain meds. Asked for Dr Street's assistance. States he can travel to [place] or [place] or w herever else local that PCP can be found who will prescribe Needed medication. Seeks call back to discuss. elephone Encounter - Stacy Elder RN - 03/11/2017 9:54 AM PDTI spoke with Rachid Glez on the phone to dis cuss his new PCP and to see if he is scheduled for his CT enterography. He is still seeing Dr. Ramirez as his PCP. He has not been scheduled for his CT - provided him with the number to call [facility] alvin to get scheduled and expressed the urgency in order for us to assess how active his inflam mation is. He then said, "Now that I have a PCP, the doctor (Dr. Street) can prescribe pain medicat ion" Explained that his pain medication needs to be prescribed through his PCP and that Dr. Justine fiore doesn't prescribe pain medications. If his pain is being caused by inflammation, then we need to treat the inflammation and by treating the inflammation, we will treat his pain. He then got very upset and stated that he has been on pain medication for 12 years and has never had a problem until now. He swore and disconnected the call. Routed to Dr. Street. elephone Encounter - Shena Regan - 03/11/2017 9:47 AM PDTPatient called stating he has established with a new PCP. He did not give name or details and was very cryptic. He sated that because he h as now established with a new PCP that Dr. Street can prescribe him with medication for h is crohn's. Please follow up with patient. documented in this e ncounter Plan of Treatment Not on filedocumented as of this encounter Visit Diagnoses Not on filedocumented in this encounter
--- OUTSIDE RECORDS SUMMARY | ~2020-07-14 | XMS | Encounter Summary ---
Demographics + + + | Address | [address] | | | [place] [address] | + + + | Home Phone [...] Team Providers + +------+ + | Care Portfolio Consultant Name | Role | Phone | + +------+ + | Meaghan Zhong MD | PCP | | + +------+ + Reason for Visit + +--------+ + | Reason | Onset | Comments | | | Date | | + +--------+ + | Medication | 01/20/ | | | management | 2017 | | + +--------+ + Encounter Details +--------+ + + + + | Date | Type | Department | Care Team | Description | +--------+ + + + + | 01/20/ | Telephone | [facility] | [address] | Medication | | 2016 | | Center [place] [id number] | MD | management | | | | [address] [place] | | | | | | for Health and | | | | | | [facility], [address] | | | | | | [place], [place] | | | | | | [address] | | | | | | [phone] | | | +--------+ + + + [...] Telephone Encounter - Stacy Elder RN - 01/22/2017 8:26 AM PDTSpoke with Rachid luciano yesterday to develop a plan to minimize these ED visits. He currently does not have a PCP due to breaking pain contract with them and being discharg ed from their clinic. He is set to establish with a new PCP January 29 at 2:00 PM with [facility]. Once established with a new PCP, they can develop a plan to treat his pain and decrease his ED visits. He is seeing Dr. Street 01/26/17 - medical transport was arranged. elephone Encounter - Arnel Rich - 017 8:21 AM PDTPATIENT LEFT VOICE MESSAGE WITH [facility] COORDINATOR ON 01/21/17 AT 6:08 Who is calling? Rachid Glez Best number to reach you at? [phone] Best time to contact you? anytime Reason for call? msg is for stacy from dr brandt office, has had another trip to the ER, wanted to make it noted that happened Advised caller that they will receive a call back next business day. Caller understands a nd is agreeable to this. elephone Encounter - Any Villalta - 01/21/2017 4:18 PM PDTPatient returning call to ADITI Cobian RN Connected call elephone Encounter - Stacy Elder RN - 01/21/2017 4:18 PM PDTI spoke with Rachid Glez o n the phone to discuss the appointment with [facility] on January 29 at 2:00 PM. He is able to make that appointment and had no further questions. He will call [facility] if he has any concerns and will be sure to arrive at the appointment 15 min early. Electronically sign ed by Stacy Elder RN at 01/21/2017 4:20 PM PDTTelephone Encounter - Stacy Elder RN - 01/21/2017 2:[address] [facility] to get [facility]. They can jayashree edule him for January 29 2:00 PM arrive 15 minutes early. Asked that he please be placed on the schedule and I will call him to discuss. If he CANNOT make that appointment, he can call [facility] at . Received a message from [facility] that they had the wrong patient for that appointment time and that Rachid Glez does not have a scheduled appointment. Attempted to call Rachid Glez on the phone. He did not answer. LDVM with the call ck number including the appointment time above and [facility] phone number. elephone Encounter - Stacy Elder RN - 01/21/2017 11:23 AM PDTSpoke with Galilea from Dr. Green's office re gardally Rashid. Because Rachid broke his pain contract, he was discharged from the clinic. They cannot do anything further for him and he needs to establish a new PCP. Called [facility] because they stated earlier this month that Rachid could establish with them and be seen pretty urgently, but his appointment is scheduled for February 12 at 1:00 PM. They had no sooner appointments. I spoke with Rachid Glez on the phone to talk with him about the information above. He didn't know that he was schedule with [facility], so will call to confirm. But he was very happy that he had an appointment made and is okay with it being a few weeks away. He had no further questions and will [facility]-up with [facility]. elephone Encounter - Stacy Elder RN - 10:01 AM PDTAttempted to call Laury back from Dr. Garrett's office. She was normtrena vasquez. Left direct callback number. Wondering if Rachid gets the tox screen completed, if they will prescribe pain medicatio ns for him. elephone Encounter - Amy Marsh - 01/21/2017 8:25 AM Austin is calling stating that the RN was talking to him about getting some pain meds to last him until his appt with Dr Osei salvador on 01/26/17. He received a call from another one of his Drs and was told they could not h elp him. Please call the pt to advise.Electronically signed by Amy Marsh at 7 8:27 AM PDTTelephone Encounter - Stacy Elder RN - 01/20/2017 10:54 AM PDTI spoke wit frank Glez on the phone to check in on how he is doing. He is seeing Dr. Street 01/26/17 and has medical transport lined up. He is still trying to establish a new PCP, but he reports he has called several different o ffices, but has not received a return call. Advised that he get the tox screen done with Dr. Green's office for now, so she can help w ith these frequent ED visits while he is trying to establish a new PCP. He agreed and will contact them. He will call if there are any further issues. Electronically signed by ADITI Martin 01/20/2017 10:59 AM PDTTelephone Encounter - Angi Mo - 01/20/2017 10:22 AM PDT5 [phone].S/W Laury at PCP's office. Asked me to send message to provider letting him know that patient has had issues with narc otic use the past couple of months and has had several visits to the ER where he has been re fused pain meds. Stated patient is very upset with PCP for this and will not allow PCP to do a tox screen on him. No return call needed to PCP. documented in this encounter Plan of Treatment Not on filedocumented as of this encounter Visit Diagnoses Not on filedocumented in this encounter"
--- OUTSIDE RECORDS SUMMARY | ~2020-07-14 | XMS | Encounter Summary ---
Demographics + + + | Address | [address] | | | [place] [address] | + + + | Home Phone | | + + + | Preferred Language | Unknown | + + + | Marital Status | Single | + + + | Zoroastrianism Affiliation | 1013 | + + + | Race | White | + + + | Ethnic Group | Not or | + + + Author + + + | Author | and [facility] | | | and [place] | + + + | Organization | [facility] | | | [...] Providers + +------+ + | Care Commercial Loan Collection Officer Name | Role | Phone | + +------+ + | No, Physician | PCP | Unavailable | + +------+ + Encounter Details +--------+ + + + + | Date | Type | Department | Care Team | Description | +--------+ + + + + | 08/15/ | [facility] | [place] [facility] | Emily Green, | | | 2013 | Encounter | [facility] | DO [address] | | | | | [address] [place] | [place] [address] | | | | | [place], [place] | [phone] | | | | | [address] | | | | | | [phone] | | | +--------+ + + + [...] | + +--------+ + + + | LIPID PANEL | Routin | 08/15/2014 | | Results for this | | | e | 7:19 AM | | procedure are in the | | | | PST | | results section. | + +--------+ + + + | TSH | Routin | 08/15/2014 | | Results for this | | | e | 7:19 AM | | procedure are in the | | | | PST | | results section. | + +--------+ + + + documented in this encounter Results Lipid Panel (08/15/2014 7:19 AM PST) + +-------+ + + + | Component | Value | Ref Range | Performed | Pathologist | | | | | At | Signature | + +-------+ + + + | Cholesterol | 187 | <=200 mg/dL | EXTERNAL | | | , POC | | | LAB | | + +-------+ + + + | HDL | 56 | >=40 mg/dL | EXTERNAL | | | | | | LAB | | + +-------+ + + + | Triglycerid | 168 | 30 - 200 mg/dL | EXTERNAL | | | es | | | LAB | | + +-------+ + + + | Chol/HDL | 3.3 | <=5.1 RATIO | EXTERNAL | | | Ratio | | | LAB | | + +-------+ + + + | VLDL | 34 | 4 - 40 mg/dL | EXTERNAL | | | | | | LAB | | + +-------+ + + + | LDL-C | 97 | <=130 mg/dL | EXTERNAL | | | (calculated | | | LAB | | | ) | | | | | + +-------+ + + + + + | Specimen | + + | | + + + +---------+ + + | Performing | Address | City/State/Zipcode | Phone Number | | Organization | | | | + +---------+ + + | EXTERNAL LAB | | | | + +---------+ + + TSH (08/15/2014 7:19 AM PST) + +-------+ + + + | Component | Value | Ref Range | Performed | Pathologist | | | | | At | Signature | + +-------+ + + + | TSH | 100 | 0.40 - 4.68 | EXTERNAL | [...]
--- OUTSIDE RECORDS SUMMARY | ~2020-07-14 | XMS | Encounter Summary ---
Demographics + + + | Address | [address] | | | [place] [address] | + + + | Home Phone | | + + + | Preferred Language | Unknown | + + + | Marital Status | Single | + + + | Moravian Affiliation | 1013 | + + + | Race | White | + + + | Ethnic Group | Not or | + + + Author + + + | Author | [facility] | | | and [...] Team Providers + +------+ + | Care Hide Cleaner Name | Role | Phone | + +------+ + | Emily Green DO | PCP | | + +------+ + Encounter Details +--------+ + + + + | Date | Type | Department | Care Team | Description | +--------+ + + + + | 02/17/ | [facility] | [facility] [address] [address] [facility] | Emily Green, | | | 2015 | Encounter | [facility] | DO [address] | | | | | [facility] [address] | [place] [address] | | | | [address] [place], | [phone] | | | | | [place] [address] | | | | | | [phone] | | | +--------+ + + + [...]
--- OUTSIDE RECORDS SUMMARY | ~2020-07-14 | XMS | Encounter Summary ---
Demographics + + + | Address | [address] | | | [place] [address] | + + + | Home Phone [...] Author + + + | Author | [facility] | | | and [place] | + + + | Organization | [facility] | | | [...] Team Providers + +------+ + | Care Cook Morning Name | Role | Phone | + [...] | | CENTER [address] | [facility] | | | | | [address] [place], [place] | [place] [address] | | | | | [address] | [phone] | | | | | [phone] | | | +--------+ + + + [...]
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
--- OUTSIDE RECORDS SUMMARY | ~2020-07-14 | XMS | Encounter Summary ---
Demographics + + + | Address | [address] | | | [place] [address] | + + + | Home Phone | | + + + | Preferred Language | Unknown | + + + | Marital Status | Single | + + + | Synagogue Affiliation | 1013 | + + + | Race | White | + + + | Ethnic Group | Not or | + + + Author + + + | Author | [facility] | | | and [...] Team Providers + +------+ + | Care Journal Box Inspector Name | Role | Phone | [...] | | | disease | | [address] | | | | | without | | [place], | | | | | complication | | [place] [address] | | | | | , | | Phone: | | | | | unspecified | | [phone] | | | | | gastrointest | | Fax: | | | | | inal tract | | [phone] | | | | | location | [...] | | | | | | | [place] | | | | | | | COLONOSCOPY | | | | | | | FLX DX | | | | | | | W/COLLJ SPEC | | | | | | | WHEN PFRMD | | | | | | | [place] | | | | | | | [...] + + | 04/09/ | Surgery | [facility] | Carmelo Patterson MD | EGD / COLONOSCOPY | | 2016 | | MED CTR MP INTRA OP | [address] | | | | | [address] | [place] | | | | | [place] | [address] | | | | | [address] | [phone] | | | | | [phone] | | | +--------+---------+ + + + [...] + + + | Blood Pressure | 130/84 | 04/09/2016 8:00 AM | | | | | PDT | | + + + + + | Pulse | 51 | 04/09/2016 8:00 AM | | | | | PDT | | + + + + + | Temperature | 36.4 C (97.5 F) | 04/09/2016 8:00 AM | | | | | PDT | | + + + + + | Respiratory Rate | 16 | 04/09/2016 8:00 AM | | | | | PDT | | + + + + + | Oxygen Saturation | 97% | 04/09/2016 8:00 AM | | | [...] the physician who did your procedure at [phone] if you have any questions or experience any of the following: ? Increasing abdominal pain, nausea, or vomiting. ? Chills and fever over 101F. ? New abdominal swelling or bloating. ? Signs of rectal bleeding (black or red stool). If you cannot get a hold of your physician, then call the [facility] [phone] . If necessary, report to the Emergency Department at [facility]. Quit smoking: If you smoke or [...] encounter H&P Notes Carmelo Patterson MD - 04/09/2016 9:32 AM PDTPatient interviewed, history and physical, symp toms reviewed VS signs noted, no change from previous H&P or assessment and plan.Electronic ally signed by Carmelo Patterson MD at 04/09/2016 9:33 AM Carmelo Sinclair MD - 04/08/2016 9:23 AM PDT PRE-ENDOSCOPY HISTORY AND PRE-SEDATION ASSESSMENT PATIENT NAME: Rachid Glez : 1970 TODAY'S DATE: 04/08/2016 PLANNED PROCEDURE: upper endoscopy and colonoscopy PERTINENT HISTORY/INDICATION FOR PROCEDURE: Rachid Glez is a 45 y.o. male who is undergoing upper endoscopy and colonoscopy for Crohn's disease. PAST HISTORY: Past Medical History Diagnosis Date Crohn's disease (HCC) hospitalized 11/03/12-11/07/12 at [facility] for crohn's flare Asthma Hypothyroidism Hx [...] Laterality: N/A; Surgeon: Carmelo Patterson MD; Location: [facility] MEDICAL PROCEDURE UNIT Colonoscopy N/A 11/16/2014 Procedure: COLONOSCOPY; Surgeon: Carmelo Patterson MD; Location: [facility] MEDICAL PROCEDURE UNI T HOME MEDS: Scheduled Meds: Continuous Infusions: PRN Meds:. ALLERGIES Allergies Allergen Reactions Ketorolac Other (See Comments) "hurt for 2 weeks afterwards" Morphine Nausea And Vomiting shaking ASA CLASSIFICATION: Class 3 A patient with severe systemic disease that limits activity but is not incapacitating EXAMINATION: There were no vitals taken for [...] above. Electronically Signed by: Carmelo Patterson MD 04/08/2016 [facility] Portions of this chart may have been created with [employer] voice recognition software. Occasi onal wrong-word or sound-alike substitutions may have occurred due to the inherent trejo itations of voice recognition software. Please read the chart carefully and recognize, using context, where these substitutions have occurred documented in this enc ounter Miscellaneous Notes D-C Instructions Provation - Carmelo Patterson MD - 04/09/2016 9:17 AM PDTDischacarmen Instruct ions for Upper Endoscopy Patient: Rachid Glez : 1970 Acct: [id number] Exam Date: Saturday, April 09, 2016 Doctor: Carmelo Patterson MD The chances of difficulty following this procedure are minimal. The following instruction s will assist you in your recovery. 1. Do Not eat or drink anything for 1 hour. Try sips of water first. If tolerated, resu me your regular diet or one recommended by your physician. 2. Do not drive, operate [employer], make critical decisions, or do activities that require coordination or balance for 24 hours. 3. You may experience a sore throat for 24 - 48 hours. You may use throat lozenges or ga rgle with warm salt water to relieve the discomfort. 4. Because air was put into your stom ach druing the procedure, you may experience some belching. 5. Do not use any medication containing aspirin for 10 days, unless otherwise directed by your physician. 6. Sometimes the medications given to you druing the exam can aggravate the veins. The c hemical irritation can cause inflammation or pain along the arm with redness, swelling and warmth. This does not mean there is an infection. You can treat the affected area by appl marguerite warm, wet compresses (towels) 4 times a day for 20 minutes at a time until inflammatio n is resolved 7. Report to your doctor: Chills and/or fever over 100 Persistent vomiting or vomiting with blood/nasal regurgitation Severe abdominal pain, othe r than gas cramps Severe chest pain Black, tarry stools You may reach your physician at Work: Ext [phone]. If unable to reach your p hysician, call [facility] Emergency Department at Ext. [phone] Your doctor recommends these additional instructions: You have a contact number available for emergencies. The signs and symptoms of potential delayed complications were discussed with you. You may return to normal activities tomorro w. Written discharge instructions were provided to you. Resume your regular diet. You are being discharged to home. Continue your present medications. We are waiting for your pathology results. Return to your GI clinic as needed. The findings and recommendations have been discussed with you. These instructions have bee n explained to the patient and/or escort. A copy has been given to the patient/escort. Nurse Signatur e Patient Signature Carmelo Patterson MD 04/09/2016 9:51 AM -C I nstructions Provation - Carmelo Patterson MD - 04/09/2016 9:15 AM PDTDischarge Instructions f or Colonoscopy Exams Patient: Rachid Glez : 1970 Acct: [id number] Exam Date: Saturday, April 09, 2016 Doctor: Carmelo Patterson MD You have had an examination of the gastrointestinal tract. The chances of difficulty foll owing this procedure are minimal. The following instructions will assist you in your recov merry. ACTIVITIES: Rest quietly until sedation wears off. DO NOT drive a motor vehicle or operate machinery for 24 hours after sedation. Be cautious making critical decisions for 24 hours after sedation. DIET: If throat has been sprayed, do not eat or drink for 1 hour after. Start with a swallow of tap water, if you experience any lack of sensation in your throat, wait another 30 - 60 min utes and start with water again. Once swallowing has returned to normal you may resume your usual diet unless otherwise instructed by your physician. DISCOMFORT: If you had a bowel exam, you may have some abdominal discomfort from the air put into your bowel during the exam. Moving about will help you pass this air. Sometimes the medication s given to you during the exam can aggravate the veins. The chemical irritation can cause inflammation or pain along the arm with redness, swelling and warmth. This does not mean t here is an infection. You can treat the affected area by applying warm,wet compresses (tow els) 4 times a day for 20 minutes at a time until inflammation is resolved. REPORT TO YOUR DOCTOR: Unusual abdominal pain Chest pain or unusual shortness of breath Shoulder pain Nausea, vomiting Fever over 100 degrees, chills Signs of rectal bleeding (red or black stools) Any concern you have resulting from procedure You may reach your physician at Work: Ext [phone]. If unable to reach your p conor, call [facility] Emergency Department at Ext. [phone] Your doctor recommends these additional instructions: You have a contact number available for emergencies. The signs and symptoms of potential delayed complications were discussed with you. You may return to normal activities tomorro w. Written discharge instructions were provided to you. Eat a high fiber diet indefinitely. You are being discharged to home. Continue your present medications. We are waiting for your pathology results. Your physician has recommended a repeat colonoscopy in one year because the bowel preparat ion was suboptimal. Return to your GI clinic as needed. The findings and recommendations have been discussed with you. These instructions have bee n explained to the patient and/or escort. A copy has been given to the patient/escort. Nurse Signatur e Patient Signature Carmelo Patterson MD 04/09/2016 10:31 AM docu mented in this encounter Plan of Treatment Not [...] Rachid GlezProcedure Date: | PROVATION | | 04/09/2016 9:17 AMMRN: [id number] #: [id number] of : | | | 1970Admit Type: AmbulatoryAge: 45Room: [facility] 02Gender: MaleNote | | | Status: FinalizedAttending MD: Carmelo Patterson, [facility]rocedure: | | | Upper GI endoscopyIndications: Nausea with | | | vomitingProviders: Carmelo Patterson MD, Nini | | | ADITI Stewart, Kaylen Hernandez RN, Iraida | | | Stepan, Fundraising Officer, Nima Lynn MD | | | (Anesthesia [...] the | | | anesthesiologist and the fabrication technician in the pre-procedure area in the [...] AMScope Out: 9:46:40 AM | | | [facility], [address], [place] | | | [address] | | | instructions were provided to [...] |Scope Out: 9:46:40 AM | | | [facility], [address] [facility], [place], [place] | | | [address] | | + + -+ + +---------+ [...] Rachid Mendez Date: | PROVATION | | 04/09/2016 9:15 AMMRN: [id number] #: [id number] of : | | | 1970Admit Type: AmbulatoryAge: 45Room: [facility] 02Gender: MaleNote | | | Status: FinalizedAttending MD: Carmelo Patterson, [facility]ITALrocedure: | | | ColonoscopyIndications: Follow-up of Crohn's disease of | | | the colonProviders: Carmelo Patterson MD, [facility] | | | ADITI Stewart, Kaylen Hernandez RN, [facility] | | | Stepan, Fundraising Officer, Nima Lynn MD | | | (Anesthesia [...] the | | | anesthesiologist and the fabrication technician in the pre-procedure area in the [...] | | 9:53:11 AMScope Out: 10:24:21 AM [facility] | | | [place], [address] [place] [address] | | | - High fiber diet [...] |Scope Out: 10:24:21 AM | | | [facility], [address] [facility] [place], [place] | | | [address] | | + + -+ + +---------+ [...] | | | endoscopic correlation is recommended. ARW:[facility]:C2NR GROSS | | | DESCRIPTION: Received in nine parts. A. Received in formalin | | | labeled "[employer] Newton" and "duodenal bx" on the requisition are | | | eight pink-owens tissue fragments measuring from 0.1-0.7 cm, submitted, | | | all in (A1). B. Received in formalin labeled "Adventism Newton" | | | and "gastric bx" on the requisition are two pink-owens tissue fragments | | | measuring from 0.35-0.55 cm, submitted, all in (B1). C. Received | | | in formalin labeled "Adventism Newton" and "esophagus bx" on the | | | requisition are seven pink-owens tissue fragments measuring from | | | <0.1-0.4 cm, submitted, all in (C1). D. Received in formalin | | | labeled "Adventism Newton" and "right colon bx" on the requisition | | | are four pink-owens tissue fragments measuring from 0.2-0.5 cm, | | | submitted, all in (D1). | | | E. Received in formalin | | | labeled "Adventism Newton" and "transverse colon bx" on the | | | requisition are four pink-owens tissue fragments measuring from 0.4-0.6 | | | cm, submitted all into (E1). F. Received in formalin labeled | | | "Adventism Newton" and "descending colon bx" on the requisition are | | | five pink-owens tissue fragments measuring from 0.1-0.8 cm, submitted, | | | all in (F1). G. Received in formalin labeled "Adventism Newton" | | | and "sigmoid colon bx" on the requisition are six pink-owens tissue | | | fragments measuring from 0.2-0.5 cm submitted, all in (G1). H. | | | Received in formalin labeled "Adventism Newton" and "rectal bx" on | | | the requisition are seven pink-owens tissue fragments measuring from | | | 0.25-0.5 cm, submitted, all in (H1). I. Received in formalin | | | labeled "Adventism Newton" and "sigmoid polyp bx" on the requisition | | | are five red-brown fragments measuring from 0.1-0.4 cm, submitted, all | | | in (I1). ka:CLR:[facility] PERFORMING LABORATORY: Tissue processing | | | and slide preparation were performed by [facility], [address] | | [facility], [facility], [place] [address] (Recep: Agusto | | | Jayda Mccracken CLIA#: [id number]). Professional interpretation was | | | performed by [facility], [address] | | | [place] [address] (Recep: Agusto Mccracken M.D.; CLIA#: | | | [id number]). Diagnostician: Ruiz Barrett DO Pathologist | | | Electronically Signed 04/10/2016 | [...]
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
--- OUTSIDE RECORDS SUMMARY | ~2020-07-14 | XMS | Encounter Summary ---
Demographics + + + | Address | [address] | | | [place] [address] | + + + | Home Phone [...] + | Author | [facility] | | | and [place] | + + + | Organization | [facility] | [...] Team Providers + +------+ + | Care Stove Polisher Name | Role | Phone | + +------+ + | No, Physician | PCP | Unavailable | + +------+ + Encounter Details +--------+ + + + + | Date | Type | Department | Care Team | Description | +--------+ + + + + | 12/25/ | Sajan | [facility] | [facility] | | | 2014 | Encounter | HOSPITAL EMERGENCY | MD [address] | | | | | CENTER [address] | [facility] | | | | | [address] [place] | [place] [address] | | | | | [address] | [phone] | | | | | [phone] | | | +--------+ + + + [...]
--- OUTSIDE RECORDS SUMMARY | ~2020-07-14 | XMS | Encounter Summary ---
Demographics + + + | Address | [address] | | | [place] [address] | + + + | Home Phone | | + + + | Preferred Language | Unknown | + + + | Marital Status | Single | + + + | Islam Affiliation | 1013 | + + + | Race | White | + + + | Ethnic Group | Not or | + + + Author + + + | Author | [facility] | | | and [place] | + + + | Organization | [facility] | | [...] Team Providers + +------+ + | Care Manufacturing Operations Manager Name | Role | Phone | + +------+ + | Emily Green DO | PCP | | + +------+ + Encounter Details +--------+ + + + + | Date | Type | Department | Care Team | Description | +--------+ + + + + | 02/17/ | [facility] | Shirley Frankel, | | | 2016 | Encounter | [facility] | LOCK ASSEMBLER [address] | | | | | [facility] [address] | [facility], [place] | | | | | [address] [facility], | [address] | | | | | [place] [address] | | | | | | [phone] | | | +--------+ + + + [...]
--- OUTSIDE RECORDS SUMMARY | ~2020-07-14 | XMS | Encounter Summary ---
Demographics + + + | Address | [address] | | | [place] [address] | + + + | Home Phone [...] Team Providers + +------+ + | Care Special Agent Name | Role | Phone | [...] | | 2017 | | Center at [facility] [address] | MD | From Patient (Letter | | | | [facility] | | from patient) | | | | for Health and | | | | | | Healing, [address] | | | | | | [place], [place] | | | | | | [address] | | | | | | [phone] | | | +--------+ + + + [...]
--- OUTSIDE RECORDS SUMMARY | ~2020-07-14 | XMS | Encounter Summary ---
Demographics + + + | Address | [address] | | | [place] [address] | + + + | Home Phone [...] Author + + + | Author | [facility] | | | and [place] | + + + | Organization | [facility] | | [...] Team Providers + +------+ + | Care Architect Internship Name | Role | Phone | [...] + | 04/14/ | Emergency | [facility] | Mabel Wallace | Abdominal pain | | 2013 | | [facility] | DO Shayne Man SHIRA | (Primary Dx); | | | | CENTER [address] | [place], [place] | Epigastric pain | | | | [place], [place] | [address] | | | | | [address] | | | | | | [phone] | | | +--------+ + + + [...] + documented as of this encounter ED Jared Martinez RN - 04/14/2014 3:43 PM PDTDc with instructions pt states he feels much be tter mild lower left abd pain noted abel Wallace MD - 04/14/2014 2:07 PM PDTFormatting of this note dank ht be different from the original. [facility] Rachid Glez Emergency Department Encounter Note [address] [place] [address] PCP:Physician No [phone] CHIEF COMPLAINT Chief Complaint Patient presents with [...] Date Crohn's disease (HCC) hospitalized 11/03/12-11/07/12 at [facility] for crohn's flare Asthma Hypothyroidism Hx [...] Notes Plan of Care - WILLIAM LA WAWI - 04/17/2014 12:00 AM PDT D Triage Notes - Jared Cook RN - 04/14/2014 1:31 PM PDT abd [...] + | [facility] | [address] | [place] | [phone] | | [facility] | | [address] | | | - LABORATORY | | | | + + + + + | [facility] | [address] | [place], [place] | | | [facility] | | [address] | | | - LABORATORY | [...] | | | | | mmol/L | [facility] | | | | | | [...] + + + + + + | eGFR, | >60Comment: GLOMERULAR | >=60 | [facility] | | | non- | FILTRATION | mL/min/1.73m2 | [facility] | | | [place] | RATE,ESTIMATED | | MEDICAL | | | | mL/min/1.69j0Hdjb than | | CENTER - | | [...] + | [facility] | [address] | [place] | [phone] | | [facility] | | [address] | | | - LABORATORY | | | | + + + + + | [facility] | [address] | [place] | | | [facility] | | [address] | | | - LABORATORY | | | | + + + + + CBC with Differential (04/14/2014 2:15 PM PDT) + + + + + + | Component | Value | Ref Range | Performed | Pathologist | | | | | At | Signature | + + + + + + | White Blood | 10.4 | 4.0 - 11.0 K/uL | [facility] | | | Cells | | | [facility] | | | | | | MEDICAL | | | | | | CENTER - | | | | | | LABORATORY | | + + + + + + | Red Blood | 3.75 (L) | 4.30 - 5.70 | [facility] | | | Cells | | M/uL | [facility] | [...] | | | | | | [facility] | | | | | | MEDICAL | | | | | | CENTER - | | | | | | LABORATORY | | + + + + + + | % | 1.9 | 0.0 - 5.0 % | [facility] | | | Eosinophils | | | [facility] | | | | | | MEDICAL | | | | | | CENTER - | | | | | | LABORATORY | | + + + + + + | % Basophils | 0.6 | 0.0 - 1.0 % | [facility] | | | | | | [facility] | | | | [...] | Lymphocytes | | K/uL | [facility] | [...] | | Basophils | | K/uL | [facility] | | | | | | [...] + | [facility] | [address] | [place], [place] | [phone] | | [facility] | | [address] | | | - LABORATORY | | | | + + + + + | [facility] | [address] | [place], [place] | | | [facility] | | [address], [facility] | | | - LABORATORY | [...] the | | abdomen and pelvis most [id number]/2011.PROTOCOL: Axial images of the abdomen and | [...] + | MISCELLANEOUS LAB | | | [phone] | + +---------+ + + | MISCELANIOUS LAB | | | [phone] | + +---------+ + + documented in [...]
--- OUTSIDE RECORDS SUMMARY | ~2020-07-14 | XMS | Encounter Summary ---
Demographics + + + | Address | [address] | | | [place] [address] | + + + | Home Phone [...] Author + + + | Author | [facility] | | | and [place] | + + + | Organization | [facility] | | [...] Providers + +------+ + | Care Web Analytics Developer Name | Role | Phone | [...] 2012 | | GASTROENTEROLOGY | [address] | | | | | [address] [place] | [address], | | | | | [address], [place] | [place] [address] | | | | | [address] | [phone] | | | | | [phone] | | | +--------+ + + + [...]
--- OUTSIDE RECORDS SUMMARY | ~2020-07-14 | XMS | Encounter Summary ---
Demographics + + + | Address | [address] | | | [place] [address] | + + + | Home Phone | | + + + | Preferred Language | Unknown | + + + | Marital Status | Single | + + + | Scientologist Affiliation | [id number] | + + + | Race | White | + + + | Ethnic Group | Not or | + + + Author + + + | Author | [facility] [place] | | | and [...] Providers + +------+ + | Care Newspaper Reporter Name | Role | Phone | + +------+ + PCP | Unavailable | + +------+ + Encounter Details +--------+ + + + + | Date | Type | Department | Care Team | Description | +--------+ + + + + | 07/07/ | Hospital | [place] [facility] | Meaghan Zhong | | | 2010 | Encounter | [facility]OSPITAL MED SURG | MD [address] | | | | | [address] [place] | [address] [facility], | | | | | [place], [place] | [place] [address] | | | | | [address] | [phone] | | | | | [phone] | | | +--------+ + + + [...] alo with IV fluids and a FENTANYL CERTIFIED HAND THERAPIST. His pain improved rapidly and he was [...] He will follow a lower fat diet. [facility] Signed and Approved by: MEAGHAN ZHONG [...] had a colonoscopy done this April in [place] which was unremarkable for Crohn's or cancer. EGD showed mild inflammation. ASSESSMENT: 1. Acute pancreatitis, mild. 2. Crohn's disease, currently not active. 3. Asthma with bronchospasm. 4. Hypothyroidism. 5. History of GERD, some concern for peptic ulcer disease based on his history, needs to co ntinue on a PPI. PLAN: 1. MedSurg admit. 2. Clear liquid diet, IV fluids. 3. CERTIFIED HAND THERAPIST FENTANYL. 4. Resume PPI. 5. ALBUTEROL metered-dose inhaler. 6. Follow lab in exam. [facility] Signed and Approved by: MEAGHAN ZHONG MD 07/08/2011 18:40:00 documented in this encounter Plan of Treatment Not on filedocumented as of this encounter Visit Diagnoses Not on filedocumented in this encounter
--- OUTSIDE RECORDS SUMMARY | ~2020-07-14 | XMS | Encounter Summary ---
Demographics + + + | Address | [address] | | | [place] [address] | + + + | Home Phone [...] + + + | Author | [facility] [place] | | | and [place] | + + + | Organization | [facility] [place] | | | [...] Team Providers + +------+ + | Care Line Prep Cook Name | Role | Phone | + +------+ + | Emily Green DO | PCP | | + +------+ + Reason for Visit + +--------+ + | Reason | Onset | Comments | | | Date | | + +--------+ + | Procedure | 02/05/ | r/s egd/colon | | | 2016 | | + +--------+ + Encounter Details +--------+ + + + + | Date | Type | Department | Care Team | Description | +--------+ + + + + | 02/05/ | Telephone | [facility] | Carmelo Patterson MD | Procedure (r/s | | 2016 | | GASTROENTEROLOGY | [address] | egd/colon) | | | | [address] [facility] | [place], [place] | | | | | [address] [place], [place] | [address] | | | | | [address] | [phone] | | | | | [phone] | | | +--------+ + + + [...] encounter Miscellaneous Notes Telephone Encounter - Nemo Tejada, RN - 02/06/2016 8:13 AM PDTPt called [...] [place] Booking. Electron ically signed by Nemo Tejada, RN at 02/06/2016 8:17 AM PDTTelephone Encounter [...]
--- OUTSIDE RECORDS SUMMARY | ~2020-07-14 | XMS | Encounter Summary ---
Demographics + + + | Address | [address] | | | [place] [address] | + + + | Home Phone [...] Author | [facility] [place] | | [...] Team Providers + +------+ + | Care Production Planner Name | Role | Phone | + [...] [place], | | | | | [address] [place] | [place] [address] | | | | | [address] | [phone] | | | | | [phone] | | | +--------+ + + + [...]
--- OUTSIDE RECORDS SUMMARY | ~2020-07-14 | XMS | Encounter Summary ---
Demographics + + + | Address | [address] | | | [place] [address] | + + + | Home Phone | | + + + | Preferred Language | Unknown | + + + | Marital Status | Single | + + + | Voodoo Affiliation | 1013 | + + + | Race | White | + + + | Ethnic Group | Not or | + + + Author + + + | Author | [facility] [place] [...] Providers + +------+ + | Care Software Engineer Intern Name | Role | Phone | + +------+ + | No, Physician | PCP | Unavailable | + +------+ + Encounter Details +--------+ + + + + | Date | Type | Department | Care Team | Description | +--------+ + + + + | 10/24/ | Hospital | [facility] [facility] | Emily Green, | | | 2014 | Encounter | [facility] | DO [address] | | | | | MEDICAL CLIN[address] | [place] [address] | | | | | [address] [facility], | [phone] | | | | | [place] [address] | | | | | | [phone] | | | +--------+ + + + [...]
--- OUTSIDE RECORDS SUMMARY | ~2020-07-14 | XMS | Encounter Summary ---
Demographics + + + | Address | [address] | | | [place] [address] | + + + | Home Phone [...] + + + | Author | [facility] [place] | | | and [place] | + + + | Organization | [facility] | | | [...] Team Providers + +------+ + | Care Primary Care Md Name | Role | Phone | + [...] | | | CENTER [address] | [facility] | | | | | [address] [place] | [place] [address] | | | | | [address] | [phone] | | | | | [phone] | | | +--------+ + + + [...] + + + + | Clarity, | HAZY | CLEAR | EXTERNAL | | | Urine | | | LAB | | + + + + + + | Color, | YELLOW | YELLOW | EXTERNAL | | | Urine | | | LAB | | + + + + + + | Specific | 1.015 | 1.005 - 1.030 | EXTERNAL | | | [place], | | | LAB | | | [...] + + + + | RBC | 0-2 | </= 5 PER HPF [...] | | | abnormality is identified. JOB#: [id number] | | | Read By: RAGHU SUMMERS [...] hernia. CONCLUSION:No acute abnormality is identified. JOB#: [id number] | | Read By: RAGHU SUMMERS MD [...] identified. | | | | | |JOB#: [id number] | | | |Read By: RAGHU SUMMERS MD | | | |Released By: RAGHU SUMMERS MD | |Date: 11/04/2014 09:56 | | | | | + + documented in this encounter Visit Diagnoses Not on filedocumented in this encounter"
--- OUTSIDE RECORDS SUMMARY | ~2020-07-14 | XMS | Encounter Summary ---
Demographics + + + | Address | [address] | | | [place] [address] | + + + | Home Phone [...] Author + + + | Author | [facility] | + + + | Organization | [facility] | + + + | Address | Unknown | + + + | Phone | Unavailable | + + + Support + + +---------+ + | Name | Relationship | Address | Phone | + + +---------+ + | Thalia Armani | ECON | Unknown | | + + +---------+ + Care Team Providers + +------+ + | Care Intel Analyst Name | Role | Phone | + +------+ + | Meaghan Zhong MD | PCP | | + +------+ + Reason for Visit +--------+--------+ + | Reason | Onset | Comments | | | Date | | +--------+--------+ + | Other | 12/08/ | | | | 2015 | | +--------+--------+ + Encounter Details +--------+ + + + + | Date | Type | Department | Care Team | Description | +--------+ + + + + | 12/08/ | Telephone | [facility] | Isaac Hartmann MD | Other | | 2015 | | Center at [facility] [address] | | | | | | [facility] | | | | | | for Health and | | | | | | Healing, [facility] [address] | | | | | | [place], [place] | | | | | | [address] | | | | | | [phone] | | | +--------+ + + + [...] this encounter Miscellaneous Notes Telephone Encounter - Isaac Hartmann Md - 12/09/2015 11:17 AM PDTSpoke with Mr. Glez, he has run out of Lialda. Reports taking Lialda 6 tablets (7.2g) per day rather than 4 tablets, w sania is why he has run out. Reports being told by Dr. Street to continue this higher dos e, but it's not clear if this is the case based on the office note. Regardless I put in a r efill. [place]/Christina IBD - if he should be on a lower dose of Lialda, please call and update patient/sc ript. documented in this enco unter Plan of Treatment Not on filedocumented as of this encounter Visit Diagnoses Not on filedocumented in this encounter"
--- OUTSIDE RECORDS SUMMARY | ~2020-07-14 | XMS | Encounter Summary ---
Demographics + + + | Address | [address] | | | [place] [address] | + + + | Home Phone [...] Author | [facility] [...] Team Providers + +------+ + | Care Admissions Specialist Name | Role | Phone | [...] 2013 | | GASTROENTEROLOGY | [address] | | | | | [address] [place] | [address] [place], | | | | | [address] [place], [place] | [place] [address] | | | | | [address] | [phone] | | | | | [phone] | | | +--------+ + + + [...]
--- OUTSIDE RECORDS SUMMARY | ~2020-07-14 | XMS | Encounter Summary ---
Demographics + + + | Address | [address] | | | [place] [address] | + + + | Home Phone [...] Team Providers + +------+ + | Care Restaurant Culinary Manager Name | Role | Phone | + +------+ + | Meaghan Zhong MD | PCP | | + +------+ + Reason for Visit + + + | Reason | Comments | + + + | Medical Records | 04/09/2016 EGD/Colonoscopy reports and Pathology report - | | Review | Stoddardalvin Watson | + + + Encounter Details +--------+ + + + + | Date | Type | Department | Care Team | Description | +--------+ + + + + | 04/18/ | Abstract | Digestive Health | [address], | Medical Records | | 2016 | | Center at [facility] [address] | MD | Review (04/09/2016 | | | | [address] [place] | | EGD/Colonoscopy | | | | for Health and | | reports and | | | | Healing, [address] | | Pathology report - | | | | [place], [place] | | [place] | | | | [address] | | [address] | | | | [phone] | | | +--------+ + + + [...]
--- OUTSIDE RECORDS SUMMARY | ~2020-07-14 | XMS | Encounter Summary ---
Demographics + + + | Address | [address] | | | [place] [address] | + + + | Home Phone [...] Team Providers + +------+ + | Care Hospital Nurse Liaison Name | Role | Phone | + +------+ + | Meaghan Zhong MD | PCP | | + +------+ + Reason for Visit + +--------+ + | Reason | Onset | Comments | | | Date | | + +--------+ + | Request For Records | 04/17/ | | | | 2015 | | + +--------+ + Encounter Details +--------+ + + + + | Date | Type | Department | Care Team | Description | +--------+ + + + + | 04/17/ | Telephone | Dig[facility] | [address], | Request For Records | | 2015 | | [place] [facility] [address] | [address] | | | | | [address] [place] | | | | | | for Health and | | | | | | [facility] | | | | | | [place], [place] | | | | | | [address] | | | | | | [phone] | | | +--------+ + + + [...] this encounter Miscellaneous Notes Telephone Encounter - Any Solo - 05/15/2016 10:55 AM PDTTrish from [facility] and stated that patient was reschedule for 8 but PA expires on 05.17 they just need an e xtension or a new PA. FAX [phone] [id number] signed by Any Solo at 05/15/2016 10:58 AM PDTTelep kemar Encounter - Eric Weinstein MA - 04/18/2016 10:03 AM PDTReceived [facility] and [facility]. Uploaded and routed to provider.Electronically signed by Eric Weinstein MA at 10:05 AM PDTTelephone Encounter - Eric Weinstein MA - 04/17/2016 10:19 AM PDTUpdated CareEverywhere for pathology report. None seen. Will request via paper fax. Medical Records (Health Information Management) [address] [address] [id number] signed by Eric Weinstein MA at 04/17/2016 10:22 AM PDTd ocumented in this encounter Plan of Treatment Not on filedocumented as of this encounter Visit Diagnoses Not on filedocumented in this encounter"
--- OUTSIDE RECORDS SUMMARY | ~2020-07-14 | XMS | Encounter Summary ---
Demographics + + + | Address | [address] | | | [place] [address] | + + + | Home Phone [...] Author + + + | Author | [facility] [place] | | | and [place] | + + + | Organization | [facility] [place] | | | [...] Team Providers + +------+ + | Care Job Printer Apprentice Name | Role | Phone | + +------+ + | No, Physician | PCP | Unavailable | + +------+ + Encounter Details +--------+ + + + + | Date | Type | Department | Care Team | Description | +--------+ + + + + | 06/23/ | Anesthesia | [facility] | Roque Watson | skilled nursing current | | 2013 | Event | [facility] | PMD [address] | use of systemic | | | | [address] | [address] [place] | steroids (Primary | | | | [place] | [address] | Dx) | | | | [address] | [phone] | | | | | [phone] | | | +--------+ + + + [...] EVALUATION Rachid Glez 43 y.o. male 1970 [id number] Scheduled procedure Medical history, anesthesia, medications, allergy histories reviewed. ECG reviewed. Labs reviewed. ROS / Med History Ane No anesthesia complications. Patient Active Problem List: HYPOTHYROIDISM ASTHMA CROHN'S DISEASE ABDOMINAL PAIN Preventative health care GERD (gastroesophageal reflux disease) Depression History History Comments Crohn's disease - hospitalized 11/03/12-11/07/12 at [place] Asthma Hypothyroidism Hx of head injury Allergy GERD (gastroesophageal reflux disease) Depression Transaminitis improving H/O medication noncompliance Surgical History CHOLECYSTECTOMY ELBOW SURGERY, RIGHT ABDOMINAL HERNIA REPAIR x4 EGD AND COLONOSCOPY EGD AND COLONOSCOPY Normal colonoscopy. Hiatal hernia, esophagitis, duodenitis. COLONOSCOPY UPPER GASTROINTESTINAL ENDOSCOPY FIBULA FRACTURE SURGERY right EGD AND COLONOSCOPY EGD / COLONOSCOPY performed by Carmelo Patterson MD at [facility] Substance History Smoking Status: Former Smoker [...] PARQ. Electronically Signed by: Roque Watson MD ESig date/time: 06/21/2014 16:29 documented in thi s encounter Plan of Treatment Not on filedocumented as of this encounter Visit Diagnoses Not on filedocumented in this encounter"
--- OUTSIDE RECORDS SUMMARY | ~2020-07-14 | XMS | Encounter Summary ---
Demographics + + + | Address | [address] | | | [place] [address] | + + + | Home Phone [...] | Author | [facility] | | [...] Team Providers + +------+ + | Care Tunnel Elastic Operator Chainstitch Name | Role | Phone | + +------+ + | Emily Green DO | PCP | | + +------+ + Encounter Details +--------+ + + + + | Date | Type | Department | Care Team | Description | +--------+ + + + + | 01/14/ | [facility] | [facility] | Emily Green, | | | 2015 | Encounter | [facility] | DO [address] | | | | | MEDICAL CLINIC [address] | [place] [address] | | | | | [address] [place], | [phone] | | | | | [place] [address] | | | | | | [phone] | | | +--------+ + + + [...]
--- OUTSIDE RECORDS SUMMARY | ~2020-07-14 | XMS | Encounter Summary ---
Demographics + + + | Address | [address] | | | [place] [address] | + + + | Home Phone [...] Providers + +------+ + | Care Manager Integration Name | Role | Phone | + [...] + + documented as of this encounter Procedure Hong Jackson - 09/16/2007 12:00 AM PSTAssociated Order(s): OPERATION RECORD [id number] [place] [id number] Date: 09/16/2007 Attending Surgeon: Bea Parks M.D. Relocation Manager(s): Hong Todd M.D. 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 Procedures Performed: 1. Colostomy takedown. 2. Primary repair of parastomal hernia. 3. Lysis of adhesions. Anesthesia: General endotracheal. Indications: This is a 37-year-old male who has had previous emergency room visits for anal pain. He had a previous fistulotomy performed in 2005. Following this, he required an exploratory laparotomy; identifying a distended colon, the area was irrigated and washed out, and an end colostomy was performed. Since the surgery, he developed a bulge surrounding his ostomy site suggestive of parastomal hernia. He is currently here for both repair of his parastomal hernia as well as closure of his colostomy. Findings Upon Procedure: A large parastomal hernia located around colostomy site. This included some omental fat. This was promptly reduced without any problems. The bowel appeared to be okay. Very long Jaquez's pouch (mid-descending colon). A handsewn end-to-end anastomosis was performed in the usual fashion in 2 layers. The patient otherwise tolerated the procedure well. We were able to perform colon sigmoidoscopy following the anastomosis confirming that there was no evidence of leak after air insufflation. Procedure: The patient was correctly identified, taken to the operating room. SCD's were placed on his legs. General endotracheal anesthesia was induced. A jefferson catheter was placed in the usual sterile fasion. He was prepped and draped in the usual sterile fashion. A midline incision was performed taking down through his previous incision site down to the fascial layer and into his peritoneum without any complication. At that point, we promptly lysed adhesions and then identified the area at which point his colostomy was exiting his peritoneum. We were able to dissect adhesions intraperitoneally initially, and then, we were unable to extend the procedure further. We then took down the colostomy site from the skin surface downwards using Bovie cautery, Lonestar retraction, and some sharp dissection to get into the parastomal hernia sac. Once the colostomy was freed from the hernia sac, we were successfully able to reduce the sigmoid colostomy. At that point, we removed the parastomal hernia sac. Attention was then made towards the left abdomen where a long Jaquez stump (mid-descending colon) was tacked up to the abdominal wall. We were able to free enough of the Aj's pouch up in order to perform an end-to-end anastomosis. The end of the colostomy site was resected with a stapler. Both ends were lined up. We created a back wall of 3-0 silk Lembert sutures. The staple lines were excised. The mucosa was closed with 2 running 3-0 Polysorb sutures. Near the completion of the mucosal closure, there was difficulty in size discrepancy. Therefore, we actually had to redo the mucosal close. We then completed 2-layer hand sewn anastomosis using 3-0 silks in a Lembert fashion. At that point, the anastomosis looked well. We performed a sigmoidoscopy with air insufflation with no evidence of leak. There was no evidence of bleeding as well. At that point, the sigmoidoscopy was terminated, and we proceeded to place as much omentum around the anastomosis as possible. The parastomal hernia was then closed using #1 Maxon in an interrupted gjgjvy-jy-xwqxz fashion. Then, we proceeded to close the fascia using #1 PDS double-looped sutures. The wounds were irrigated. The skin of the midline incision was closed with tiffany. The former colostomy wound was then packed with gauze. Sterile dressings were then applied. Dr. Bea Parks was present and scrubbed for the entire procedure. Hong Todd M.D. Bea Parks M.D. / [id number] / [id number] / [id number] / [id number] Electronically signed by Bea Parks 11-25-2007 03:42:19 PM documented in this encounte r Plan of [...] Todd MD - 09/16/2007 12:00 AM PST [id number] | | [id number] [place] [id number] | | [id number] Date: 09/16/2007 Attending Surgeon: Bea Parks M.D. Relocation Manager(s): Hong Perez | | Estephania Todd. Preoperative Diagnosis(es): Unwanted colostomy as well as [...] #1 Maxon in an | | interrupted elnexo-wh-ghkvk fashion. Then, we proceeded to close the [...] Hong Todd M.D. Bea Parks M.D. / BRANDON [id number] / [id number] / | | [id number] / [id number] Electronically signed by Bea Parks 11-25-2007 | [...] #1 Maxon in an interrupted | | txovzf-do-lywwk fashion. Then, we proceeded to close the [...] Bea Parks M.D. | | | | BW / HS | | [id number] / [id number] / [id number] / [id number] | | | | | | | | | | | | Electronically signed by Bea Parks 11-25-2007 03:42:19 PM | | | | | + + documented in this encounter Visit Diagnoses Not on filedocumented in this encounter"
--- OUTSIDE RECORDS SUMMARY | ~2020-07-14 | XMS | Encounter Summary ---
Demographics + + + | Address | [address] | | | [place] [address] | + + + | Home Phone [...] Team Providers + +------+ + | Care Student Life Coordinator Name | Role | Phone | + +------+ + | Meaghan Zhong MD | PCP | | + +------+ + Reason for Visit + +--------+ + | Reason | Onset | Comments | | | Date | | + +--------+ + | Social Work Notes | 01/05/ | | | | 2016 | | + +--------+ + Encounter Details +--------+ + + + + | Date | Type | Department | Care Team | Description | +--------+ + + + + | 01/05/ | Telephone | SOCIAL WORK | Morena Swanson | Social Work Notes | | 2017 | | AMBULATORY [address] | | | | | [address] | [place], | | | | | Mailcode: CH6A | [place] [address] | | | | | [place], [place] | | | | | | [address] | | | | | | [phone] | | | +--------+ + + + [...] this encounter Miscellaneous Notes Telephone Encounter - Morena Swanson - 01/05/2017 3:41 PM PDTSocial work referral received from [employer] [facility] to assist patient with transportation to his [facility] medical appointments . Called and spoke with patient. Provided him information on his [facility] Medicaid medical transp ortation with the [employer] [phone]. Informed patient he should contact yuri chopra at least two days prior to his appointments (if possible) to schedule medical ri bernardo. Patient voiced appreciation of the assistance and states he will call the brokerage. Pr ovided the patient with my contact information. No additional social work interventions ant icipated at this time. Morena Swanson, Cafeteria Monitor [phone] Fence Laborer pager [phone] documented in this encounte r Plan of Treatment Not on filedocumented as of this encounter Visit Diagnoses Not on filedocumented in this encounter"
--- OUTSIDE RECORDS SUMMARY | ~2020-07-14 | XMS | Encounter Summary ---
Demographics + + + | Address | [address] | | | [place] [address] | + + + | Home Phone [...] | Author | [facility] | | | and [place] | + + + | Organization | [facility] [place] [...] Team Providers + +------+ + | Care Carrier Blower Name | Role | Phone | + [...] | | CENTER [address] | [facility] | | | | | [address] [place], [place] | [place] [address] | | | | | [address] | [phone] | | | | | [phone] | | | +--------+ + + + [...]
--- OUTSIDE RECORDS SUMMARY | ~2020-07-14 | XMS | Encounter Summary ---
Demographics + + + | Address | [address] | | | [place] [address] | + + + | Home Phone [...] | Author | [facility] | | | and [place] | + + + | Organization | [facility] [...] Team Providers + +------+ + | Care Caterer Helper Name | Role | Phone | [...] MD | | | | | [address] [place] | | | | | | [place] | | | | | | [address] | | | | | | [phone] | | | +--------+ + + + [...]
--- OUTSIDE RECORDS SUMMARY | ~2020-07-14 | XMS | Encounter Summary ---
Demographics + + + | Address | [address] | | | [place] [address] | + + + | Home Phone [...] Author | [facility] | | | and [place] | + + + | Organization | [facility] Services [...] Team Providers + +------+ + | Care Stave Jointer Name | Role | Phone | + +------+ + PCP | Unavailable | + +------+ + Encounter Details +--------+ + + + + | Date | Type | Department | Care Team | Description | +--------+ + + + + | 11/16/ | Hospital | [place] [facility] | Herrera Ferrara | | | 2011 | Encounter | HOSPITAL EMERGENCY | MD [place] [address] [facility] | | | | | CENTER [address] | [facility] [address] | | | | | [address] [place] | [place], [place] | | | | | [address] | [address] | | | | | [phone] | | | +--------+ + + + [...]
--- OUTSIDE RECORDS SUMMARY | ~2020-07-14 | XMS | Encounter Summary ---
Demographics + + + | Address | [address] | | | [place] [address] | + + + | Home Phone | | + + + | Preferred Language | Unknown | + + + | Marital Status | Single | + + + | Yazidi Affiliation | CHR | + + + [...] Team Providers + +------+ + | Care Financial Assistant Name | Role | Phone | [...] | Rd Mailcode: [id number] | Dario Pru[address] [place], | | | | | [place], [place] | [place] [address] | | | | | [address] | [phone] | | | | | [phone] | | | +--------+ + + + [...] | + + + + + | [facility] DEPARTMENT OF | [address] [facility] [facility] | [place] [address] | | | PATHOLOGY | [address] | | | + + + + + | [facility] DEPARTMENT OF | [address] | [place] [address] | | | PATHOLOGY | [address] [...] | + + + + + | [facility] | [address] [facility] [facility] | [place] [address] | | | PATHOLOGY | [address] | | | + + + + + | [facility] | [address] [facility] [facility] | [place] [address] | | | PATHOLOGY | [address] [...] | + + + + + | [facility] | [address] [facility] [facility] | [place] [address] | | | PATHOLOGY | [address] | | | + + + + + | [facility] | [address] [place] [address] | [place] [address] | | | PATHOLOGY | [address] [...] | + + + + + | [facility] DEPARTMENT OF | [address] [facility] [facility] | [place] [address] | | | PATHOLOGY | [address] | | | + + + + + | [facility] DEPARTMENT OF | [facility] [facility] | [place] [address] | | | PATHOLOGY | [address] [...] 221 | 150 - 400 K/cu | [facility] | | | COUNT | | mm [...] | + + + + + | [facility] DEPARTMENT OF | [address] | [place] [address] | | | PATHOLOGY | [address] | | | + + + + + | [facility] DEPARTMENT OF | [address] | [place] [address] | | | PATHOLOGY | [address] [...] | + + + + + | [facility] | [address] [facility] [facility] | [place] [address] | | | PATHOLOGY | [address] | | | + + + + + | [facility] | [address] [facility] [facility] | [place] [address] | | | PATHOLOGY | [address] | | | + + + + + MAGNESIUM, PLASMA (09/17/2007 6:04 AM PST) + +-------+ + + + | Component | Value | Ref Range | Performed | Pathologist | | | | | At | Signature | + +-------+ + + + | MAGNESIUM,P | 2.0 | 1.8 - 2.5 mg/dL | [facility] | | | LASMA | | | [...] | + + + + + | [facility] DEPARTMENT OF | [address] [facility] | [place] [address] | | | PATHOLOGY | [address] | | | + + + + + | [facility] DEPARTMENT OF | [address] [facility] | [place] [address] | | | PATHOLOGY | [address] [...] + + | [facility] DEPARTMENT OF | [address] | [place] [address] | | | PATHOLOGY | [address] | | | + + + + + | [facility] DEPARTMENT OF | [address] | [place] [address] | | | PATHOLOGY | [address] [...] | + + + + + | [facility] DEPARTMENT OF | [address] | [place] [address] | | | PATHOLOGY | [address] | | | + + + + + | [facility] DEPARTMENT OF | [address] | [place] [address] | | | PATHOLOGY | [address] [...] | + + + + + | [facility] | [facility] | [place] [address] | | | PATHOLOGY | [address] | | | + + + + + | [facility] DEPARTMENT OF | [address] | [place] [address] | | | PATHOLOGY | [address] | | | + + + + + SLIDE REVIEW (09/16/2007 1:58 PM PST) + + | Specimen | + + | | + + + + + | Narrative | Performed At | + + + | * Corrected 09/16/07 15:06: ZUHAIR COMMENTS, prev report: Not | [facility] | | reported | DEPARTMENT OF | | | PATHOLOGY | + + + + + + + + | Performing | Address | City/State/Zipcode | Phone Number | | Organization | | | | + + + + + | [facility] | [address] [facility] | [place] [address] | | | PATHOLOGY | [address] | | | + + + + + | [facility] | [address] | [place] [address] | | | PATHOLOGY | [address] [...] | + + + + + | [facility] DEPARTMENT OF | [address] | [place] [address] | | | PATHOLOGY | [address] | | | + + + + + | [facility] | [address] | [place] [address] | | | PATHOLOGY | [address] [...] | + + + + + | [facility] | [address] [facility] [facility] | [place] [address] | | | PATHOLOGY | [address] | | | + + + + + | [facility] DEPARTMENT OF | [address] [facility] | [place] [address] | | | PATHOLOGY | [address] [...] Rock | | | | | | Sheri | | | | | | Jayda/PathologistT: | | | | | | 09/20/ I have | | | | | [...] Wade | | | | | | JaydaPathologistKenyai | | | | | | esperanza Signed 09/20/2007 | | | | + + + + + + + + | Specimen | + + | | + + + + + + + | Performing | Address | City/State/Zipcode | Phone Number | | Organization | | | | + + + + + | [facility] | [address] | [place] [address] | | | PATHOLOGY | [address] | | | + + + + + | [facility] | [address] | [place] [address] | | | PATHOLOGY | [address] | | | + + + + + documented in this encounter Visit Diagnoses Not on filedocumented in this encounter"
--- OUTSIDE RECORDS SUMMARY | ~2020-07-14 | XMS | Encounter Summary ---
Demographics + + + | Address | [address] | | | [place] [address] | + + + | Home Phone [...] Providers + +------+ + | Care Steam Train Driver Name | Role | Phone | + +------+ + | Meaghan Zhong MD | PCP | | + +------+ + Reason for Visit + +--------+ + | Reason | Onset | Comments | | | Date | | + +--------+ + | AP - Abdominal pain | 01/28/ | | | | 2016 | | + +--------+ + Encounter Details +--------+ + + + + | Date | Type | Department | Care Team | Description | +--------+ + + + + | 01/28/ | Telephone | [facility] | [address], | AP - Abdominal pain | | 2017 | | Center at [place] [address] | [place] | | | | | [address] | | | | | | for Health and | | | | | | Healing, [address] | | | | | | [place], [place] | | | | | | [address] | | | | | | [phone] | | | +--------+ + + + [...] this encounter Miscellaneous Notes Telephone Encounter - Nilton Street MD - 01/28/2017 2:48 PM [facility] spoke with Dr. Stefano Ramirez on 01/27/17 regarding Rachid's upcoming appointment. We discussed Rachid's jayla nned diagnostics, including CT enterography and capsule endoscopy. We discussed a short-course of pain medications until these diagnostics are completed. Dr. Ramirez discussed that his office does not use oxycodone. He will plan to have Rachid sign a pain contract for combination narcotic/Tylenol short-acting medications. Electronica lly signed by Nilton Street MD at 01/28/2017 2:50 PM PDTdocumented in this encounter Plan of Treatment Not on filedocumented as of this encounter Visit Diagnoses Not on filedocumented in this encounter"
--- OUTSIDE RECORDS SUMMARY | ~2020-07-14 | XMS | Encounter Summary ---
Demographics + + + | Address | [address] | | | [place] [address] | + + + | Home Phone [...] + | Author | [facility] [...] Providers + +------+ + | Care Entry Level Web Developer Name | Role | Phone | + +------+ + PCP | Unavailable | + +------+ + Encounter Details +--------+ + + + + | Date | Type | Department | Care Team | Description | +--------+ + + + + | 10/23/ | Hospital | [facility] | | | | 2010 | Encounter | MED CTR GENERIC OP | | | | | | CONV DEPT [address] | | | | | | [place], | | | | | | [place] [address] | | | | | | [phone] | | | +--------+ + + + [...]
--- OUTSIDE RECORDS SUMMARY | ~2020-07-14 | XMS | Encounter Summary ---
Demographics + + + | Address | [address] | | | [place] [address] | + + + | Home Phone [...] + + + | Author | [facility] | | | and [place] | + + + | Organization | [facility] | | [...] Team Providers + +------+ + | Care Laborer Concrete Plant Name | Role | Phone | + [...] | | | | without | [place] [address] | [address] | | | | | complication | Phone: | [place] | | | | | s ([facility]) | [phone] | [address] | | | | | Procedures | Fax: | Phone: | | | | | office visit | [phone] | [phone] | | | | | | | Fax: | | | | | | | [phone] | +--------+--------+ + + + + Encounter [...] | [address] | [place], [place] | abdominal location | | | | [address], [place] | [address] | (Primary Dx); | | | | [address] | [phone] | Crohn's disease with | | | | [phone] | | complication, | | | | [...] 125 230 pounds. He was seen at [facility] in April 2015 where a full evaluation [...] Date Crohn's disease (HCC) hospitalized 11/03/12-11/07/12 at [facility] for crohn's flare Asthma Hypothyroidism Hx [...] Laterality: N/A; Surgeon: Carmelo Patterson MD; Location: [facility] Colonoscopy N/A 11/16/2014 Procedure: COLONOSCOPY; Surgeon: Carmelo Patterson MD; Location: [facility] T Family History: Family [...]
--- OUTSIDE RECORDS SUMMARY | ~2020-07-14 | XMS | Encounter Summary ---
Demographics + + + | Address | [address] | | | [place] [address] | + + + | Home Phone [...] Team Providers + +------+ + | Care Dairy Farm Worker Name | Role | Phone | + +------+ + | Meaghan Zhong MD | PCP | | + +------+ + Reason for Visit + +--------+ + | Reason | Onset | Comments | | | Date | | + +--------+ + | Appointment Question | 02/04/ | | | | 2017 | | + +--------+ + Encounter Details +--------+ + + + + | Date | Type | Department | Care Team | Description | +--------+ + + + + | 02/04/ | Telephone | [facility] | [address], | Appointment Question | | 2017 | | Center [place] [address] | [place] | | | | | [address] | | | | | | for Health and | | | | | | [facility], [address] | | | | | | [place], [place] | | | | | | [address] | | | | | | [phone] | | | +--------+ + + + [...] Telephone Encounter - Stacy Elder RN - 02/19/2017 8:57 AM PDTTE from 01/28/[address] Ramirez's office at: [phone] ----- Message ----- From: Vahe Mckeon MD,PhD Sent: 02/18/2017 4:40 PM To: Stacy Elder RN Please fax his new PCP's office Dr. Street's telephone encounter dated 01/28/17 and ask fo r a reply from the provider. This may have been forgotten. They may need to get him in for an urgent f/u appointment to permit them to prescribe per their discussion with Dr. Agustin wing. Daisy Gomez signed by Stacy Elder RN at 02/19/2017 9:39 AM PDTTelephone Stacy Boyle RN - 02/18/2017 4:01 PM JAROCHOI spoke with Rachid Glez on the mayelin ne to discuss his requests. He saw Dr. Ramirez in clinic and Dr. Ramirez refused to give him pain medications. We discussed the fact that Dr. Street did talk with Dr. Ramirez and that was the origin al plan. Advised that he go to the ED if his pain is that severe. He was not happy with this advice. While talking to me, his significant other was in the background telling Nondenominational what to say. Nondenominational would frequently pause and listen to what she was saying, then relay that to me. Mostly revolving around the PCP office not prescribing pain medications and needing to g et some. Explained that we do not prescribe pain medication and it needs to go through his PCP. Will call Dr. Ramirez's office to discuss. Called Dr. Ramirez's office to discuss the plan below and the new plan for Nondenominational. Lillie brown saw Dr. Ramirez in clinic today. Because this was Nondenominational's first appointment, they cannot prescribe any narcotics per the ir protocol on the first appointment. Nondenominational was told to follow-up in 2 months, but scheduled out to July. Will discuss with Dr. Street. Per Dr. Street's note on 01/28/17 "I spoke with Dr. Stefano Ramirez on 01/27/17 regarding Nondenominational's upcoming appointment. We discussed Nondenominational's planned diagnostics, including CT enterography and capsule endoscopy. We discussed a short-course of pain medications until these diagnostics are completed. Dr. Ramirez discussed that his office does not use oxycodone. He will plan to have Nondenominational sign a pain contract for combination narcotic/Tylenol short-acting medications. "Claudiaa lly signed by Stacy Elder RN at 02/18/2017 4:24 PM PDTTelephone González Lopez - 02/18/2017 4:00 PM PDTPatient called in stating that he had met with local provider an d was told that local provider asked patient to work with Acetaminophen Patient states that Acetaminophen dose not work with his abdominal pain from his crohn's di sease Patient seeks call back to discuss. 4: 02 PM PDTTelephone Encounter - Any Solo - 02/18/2017 2:18 PM PDTPatient LVM on 02/18 at 1213PM Patient stated that needs to call in a prescription to [facility] [facility] [place] [facility] [address] to help get his crohn's under control, and that he needs to call it in today. elephone Encounter - Stacy Russell RN - 02/11/2017 1:40 PM PDTI spoke with Rachid Glez on the phone to discuss the message below. He was very pleasant on the phone. He is scheduled for 02/18 to se alvin Ramirez and establish with him. Advised he reschedule his CT scan for after he sees Dr. Ramirez and gets some pain managem ent established. Provided him with the number to call and reschedule his scan. He agreed with the plan and will move forward with see Dr. Ramirez next Thursday. Per Dr. Street - priority right now is establishing with PCP and getting pain controlled . Once that is done, he can get the CT scan completed. If he is unable to see his PCP, get social work involved to help get him established. ----- Message ----- From: Nilton Street MD Sent: 02/11/2017 1:37 PM To: ADITI Martin, I have to agree with you. If he wants to wait to come until he has seen his PCP and gotten meds, that exam can be rescheduled. I think you are absolutely right. Nilton ----- Message ----- From: Stacy Elder RN Sent: 02/11/2017 1:18 PM To: Nilton Street MD If you think that will be okay, that's fine. I am just slightly concerned about opening thi s door up for him. Also, he will have to pick and shovel man the script (which won't be possible) or you finger print it to send. Is that possible? Chetna Starkey ----- Message ----- From: Nilton Street MD Sent: 02/11/2017 12:35 PM To: Stacy Elder RN I'd be up for a couple of Vicodin (if you're ok with this) -- as we had discussed -- to get him here. But reiterate that his PCP is necessary for this stuff. Nilton ----- Message ----- From: Stacy Elder RN Sent: 02/11/2017 11:56 AM To: Nilton Street MD Really not sure what to do here. I do not think it would be a good idea to give him any gricel n medications. He cancelled his last PCP appointment, which I told you about and I called him. When I spok e with him, he said that he would reschedule with his PCP. Any thoughts here? Thanks, Pilarectronically signed by Stacy Elder RN at 02/11/2017 4:43 PM PDTTelephone Arnel Butler - 02/11/2017 9:57 AM PDTPatient called in asking for pain medication so that he can make trip in on 02/13/17 Informed patient that he should be talking to PCP about pain meds. Patient seeks call back to discuss. 9: 58 AM PDTTelephone Encounter - Netta Ruiz - 02/11/2017 9:50 AM PDTPatient calling wit h appointment questions, about 02/13 CT. Patient became distressed when asked what the call w as in regards to and asked that the call not be logged. Said that the trip down would kill h im, and about killed him last time. Patient then hung up when asked if he wanted to reschedu le appointment. Routed to department for documentation only. elephone Encounter - Stacy Elder RN - 02/06/2017 1 0:23 AM PDTI spoke with Rachid Glez on the phone to discuss his CT enterography. He was wondering if he will be doing the capsule the same day as the CT enterography. Explained that we will need the results of the CT and that could take a couple of days. We will then determine time of capsule and if it is needed. He understood. He is scheduled on 02/[address] We then discussed his PCP. Both his and his significant other's phones have been disconnect ed. They provided an alternate number: [phone] He said that he has seen Dr. Ramirez before and he doesn't prescribe pain medications. He also said that he did not cancel his appointment. Explained that Dr. Street spoke with Dr. Ramirez and they have a plan for pain control, but Dr. Ramirez does not prescribe oxycodone, so it will be an alternative. He was fine with this and had no issue with seeing Dr. Ramirez. He agreed to reschedule with him. Expressed the importance and necessity of having a PCP established. He verbalized lopez robertson. elephone Oj schofield - Any Solo - 02/06/2017 10:23 AM PDTPatient returning call to ADITI Cobian RN Connected call elephone Encounter - Stacy Elder RN - 02/04/2017 3:27 PM PDTAttempted to call Rachid chase on the phone to discuss the message below. His number is disconnected or no longer in se rvice. Unable to get a hold of him. ----- Message ----- From: Nilton Ste[place] MD Sent: 02/04/2017 3:06 PM To: Stacy Elder RN I completely agree. Dr. Ramirez was very reasonable. ----- Message ----- From: Stacy Elder RN Sent: 02/04/2017 2:31 PM To: Nilton Street MD ----- Message from Stacy Elder RN sent at 02/04/2017 2:31 PM PDT ----- He cancelled his appointment with Dr. Ramirez - so he still doesn't really have a PCP. I t hink we should encourage him to establish a PCP, I don't know that prescribing pain medicati ons would be a good idea because then he might not feel the need for a PCP. Let me know what you think. Thank you! Steph elephone Encoun ter - Stacy Elder RN - 02/04/2017 2:[address] Ramirez to discuss pain medic ations for Nondenominationalmodesto Glez. Received 2 voicemails from Nondenominational requesting pain medicat ion due to inability to get them from his PCP. Per Dr. Ramirez's office, Nondenominational had an appointment, but cancelled it. They did not hav e a reason why. We have been working with Nondenominational to get him established with a new PCP, but it is challe nging if he does not go to the appointments. elephone Encounter - Any Solo - 02/04/2017 10:52 AM PDTPatie nt LVM on DHC machine on 02/04 at 832AM Patient stated that he needs a prescription today for his pain. The doctor that he was set up with at [facility] does not write pain pills. Patient again stated he needs something today. Please follow up. [facility] 02/04/2017 10:44 AM PDTPatient LVM on DHC machine on 02/04 at 816AM Patient stated that he is needs help finding a doctor, did not specify where, because he is about to be out of medication. Please call back documented in this encou nter Plan of Treatment Not on filedocumented as of this encounter Visit Diagnoses Not on filedocumented in this encounter
--- OUTSIDE RECORDS SUMMARY | ~2020-07-14 | XMS | Encounter Summary ---
[...] Author + + + | Author | [facility] | | | and [place] | + + + | Organization | [facility] | | | [...] Providers + +------+ + | Care Computer Systems Manager Name | Role | Phone | [...] | [address] [place] | [place] [address] | | | | | [address] | [phone] | | | | | [phone] | | | +--------+ + + + [...]
--- OUTSIDE RECORDS SUMMARY | ~2020-07-14 | XMS | Encounter Summary ---
Demographics + + + | Address | [address] | | | [place] [address] | + + + | Home Phone [...] | Author | [facility] | | | and [place] | + + + | Organization | [facility] [...] Team Providers + +------+ + | Care Project Estimator Name | Role | Phone | + +------+ + | No, Physician | PCP | Unavailable | + +------+ + Encounter Details +--------+ + + + + | Date | Type | Department | Care Team | Description | +--------+ + + + + | 08/07/ | Sajan | [facility] [facility] | Clement Ventura | | | 2013 | Encounter | [facility] | MD [address] | | | | | CENTER [address] | [facility] | | | | | [address] [place] | [place] [address] | | | | | [address] | [phone] | | | | | [phone] | | | +--------+ + + + [...]
--- OUTSIDE RECORDS SUMMARY | ~2020-07-14 | XMS | Encounter Summary ---
Demographics + + + | Address | [address] | | | [place] [address] | + + + | Home Phone | | + + + | Preferred Language | Unknown | + + + | Marital Status | Single | + + + | Hindu Affiliation | CHR | + + + [...] Team Providers + +------+ + | Care Geospatial Specialist Name | Role | Phone | + +------+ + | Meaghan Zhong MD | PCP | | + +------+ + Reason for Visit +--------+--------+ + | Reason | Onset | Comments | | | Date | | +--------+--------+ + | Pain | 12/10/ | | | | 2016 | | +--------+--------+ + Encounter Details +--------+ + + + + | Date | Type | Department | Care Team | Description | +--------+ + + + + | 12/10/ | Telephone | [facility] | [address], | Pain | | 2016 | | Center at [facility] [address] | | | | | | [address] [facility] | | | | | | for Health and | | | | | | [facility] [address] | | | | | | [place], [place] | | | | | | [address] | | | | | | [phone] | | | +--------+ + + + [...] Telephone Encounter - Stacy Elder RN - 12/11/2016 9:52 AM PDTPrevious contact - compl aints of abdominal pain and needing pain medication. He was receiving prescriptions through his PCP, but due to refusing labs, the pain contract was broken and they would not continue to prescribe. Advised he discuss with his PCP office. He was supposed to complete stool tests and defecography - those have not been completed. I spoke with Rachid Glez on the phone to return his call and discuss the referral frank esquivel is requesting. He wants to establish a new PCP because his former PCP would not prescribe him pain medicat ion. Advised he try Internal Medicine clinic in [place]. Referral not needed. He understood and will contact them. elephone Encounter - Arnel Rich - 12/10/2016 1:25 PM PDTPatient called in asking for referral to local dr. Reeves or assistance with his pain. Patient seeks call back to discuss/ have referral sent. Left phone of [phone] signed by Arnel Rich at 12/10/2016 1:25 PM PDTd ocumented in this encounter Plan of Treatment Not on filedocumented as of this encounter Visit Diagnoses Not on filedocumented in this encounter"
--- OUTSIDE RECORDS SUMMARY | ~2020-07-14 | XMS | Encounter Summary ---
Demographics + + + | Address | [address] | | | [place] [address] | + + + | Home Phone [...] + | Author | [facility] | | [...] + +------+ + | Care Vice President Of Software Development Name | Role | Phone | + +------+ + | No, Physician | PCP | Unavailable | + +------+ + Encounter Details +--------+ + + + + | Date | Type | Department | Care Team | Description | +--------+ + + + + | 10/24/ | Sajan | [facility] [facility] | Emily Green, | | | 2014 | Encounter | HOSPITAL LABORATORY | DO [address] | | | | | [address] | [place] [address] | | | | | [place], [place] | [phone] | | | | | [address] | | | | | | [phone] | | | +--------+ + + + [...]
--- OUTSIDE RECORDS SUMMARY | ~2020-07-14 | XMS | Encounter Summary ---
Demographics + + + | Address | [address] | | | [place] [address] | + + + | Home Phone [...] Team Providers + +------+ + | Care Category Development Analyst Name | Role | Phone | + +------+ + | Meaghan Zhong MD | PCP | | + +------+ + Encounter Details +--------+ + + + + | Date | Type | Department | Care Team | Description | +--------+ + + + + | 04/28/ | Telephone | [facility] | [address], | | | 2016 | | Center [place] [address] | | | | | | [facility] | | | | | | for Health and | | | | | | [facility], [address] | | | | | | [place], [place] | | | | | | [address] | | | | | | [phone] | | | +--------+ + + + [...] Telephone Encounter - Stacy Elder RN - 04/28/2017 3:[address] spoke with [facility] to see what Sabianism's presentation was and what they were planning to do. They have given him solumedrol and plan on discharging him on prednisone. He told them to r monicate to Sabianism that we need the CT enterography -- the ED MD said he would relay this message to his PCP. e lephone Encounter - Stacy Elder RN - 04/28/2017 1:10 PM PDTDeferring to management and the provider for next steps. 1:1 4 PM PDTTelephone Encounter - Angelina Anderson - 04/28/2017 12:30 PM PDTChristian Vivian bull and left 04/28 @ 10:25am. Pt stated that he is on his way to [facility] in [place]. Requested for Stacy to call them to tell them to "Fix me up" Please call [phone] Advised caller that they may not receive a call back from nurse or provider until the next business day. Caller understands and is agreeable to this. Is it alright to leave a detailed message? Yes Pharmacy: Pharmacy Preferences: [facility] [address] [place] [address] Hours: 9am-5:30pm Mon-fri / Closed Weekends [facility] [place] [address] Hours: 9am-9pm Mon-fri / 9am-7pm Sat / 10am-6pm Sun E-Prescribing: Yes E-Prescribing Control Substances: Yes documented in this encoun ter Plan of Treatment Not on filedocumented as of this encounter Visit Diagnoses Not on filedocumented in this encounter
--- OUTSIDE RECORDS SUMMARY | ~2020-07-14 | XMS | Encounter Summary ---
Demographics + + + | Address | [address] | | | [place] [address] | + + + | Home Phone [...] Team Providers + +------+ + | Care Synthetic Chemist Name | Role | Phone | + [...] 2015 | | Center at [facility] [address] | MD | Review | | | | [facility] | | (12/10-12/12/2015 | | | | for Health and | | [facility]) | | | | Healing, [address] | | | | | | [place], [place] | | | | | | [address] | | | | | | [phone] | | | +--------+ + + + [...]
--- OUTSIDE RECORDS SUMMARY | ~2020-07-14 | XMS | Encounter Summary ---
Demographics + + + | Address | [address] | | | [place] [address] | + + + | Home Phone [...] + + + | Author | [facility] | + + + | Organization | [facility] | + + + | Address | Unknown | + + + | Phone | Unavailable | + + + Support + + +---------+ + | Name | Relationship | Address | Phone | + + +---------+ + | Thalia Armani | ECON | Unknown | | + + +---------+ + Care Team Providers + +------+ + | Care Edge Brusher Name | Role | Phone | + +------+ + | Meaghan Zhong MD | PCP | | + +------+ + Encounter Details +--------+ + + + + | Date | Type | Department | Care Team | Description | +--------+ + + + + | 12/27/ | Telephone | Dig[facility] | Bhargav Jamison MD | | | 2017 | | [place] [address] [address] | [address] | | | | | [address] [facility] | Sparkle Pruett [place], | | | | | [facility] and | [place] [address] | | | | | [facility], [facility] 2 | [phone] | | | | | [place], [place] | | | | | | [address] | | | | | | [phone] | | | +--------+ + + + [...] Telephone Encounter - Stacy Elder RN - 12/29/2016 9:40 AM KAYY spoke with Rachid Glez on the phone to discuss how he is doing - he is "80% better" he states. He no longer has thoughts of suicide - "i could never do that" - he was struggling with the pain, but denies any plans or active thoughts of suicide. "It is just like every other day or every few days - it hits me really hard and there is no thing I can do" He gets this pain about every other day and currently does not have a PCP prescribing the m edications. He hates going into the hospital "because then they start accusing me of getting a fix" However, if he starts to have pain that is getting severe, he reported that he will go into the ED to be evaluated. His current PCP is going to be a doctor in [place] - he does not currently have a provide r prescribing pain medication. He is waiting for a call to establish with PCP in [place]. He said he talked with Dr. Green and he reports that she said she cannot prescribe his gricel n medication because of breech of pain contract. The plan moving forward is: call the office if his pain starts to become severe and we will likely have him evaluated in the ED to prevent episodes of intolerable pain that he had ove r the weekend. Call clinic if he does not hear from [place] PCP office. I will touch base with him on to see how he is doing and check in on pain/PCP esta blishment. Reminder set. Routed to Dr. Street as FYCesar Spoke with Suicide Hotline at to discuss resources. They stated that they ca n connect with a patient to discuss further, if they are concerned for their safety, they wi ll call 911. If they have concerns, but it is non imminent, they will call the local non zachary rgency line to do a welfare check on the patient and evaluate for safety. They provided the non emergency line for [place] - [phone] ----- Message ----- From: Nilton Street MD Sent: 12/29/2016 8:28 AM To: Stacy Elder RN Chetna, I talked with Dr. Green. She said that at their last appointment, on 12/10/16, they had di scussed the violation of the pain contract and that she was not going to prescribe narcotics . He had mentioned a new PCP in [place] that he was going to see soon. I wonder if I could get your help since you have talked with him previously. Is there a wa y you could reach out to him and see what has led to his suicidal ideation now and if he has a plan -- and perhaps get the contact info for the PCP so I can call them? If there truly is suicidal ideation, we probably have to report this to someone. If this is too much, I can try him as well this afternoon -- and I really am ok doing this. Kian elephone EncounBhargav Mike MD - 12/27/2016 8:58 PM PDTReceived call from Rachid velasco today. H e states he is 'going to kill himself and jump in front of a train' if he does not get any p ain medications. States he used to be on opioids but his PCP stopped prescribing them. His p ain is very severe and has been getting worse for the last few weeks. He states it hurts to have a bowel movement. He denies much blood in his stool. I discussed with patient that I was very worried and I encouraged to seek evaluation in the ED given his suicidal ideation and severe abdominal pain. He states he does not want to be 'admitted to a psych salas.' I stated that I did not think that would happen, but that people would want to help him find a cause and treat his pain and help him work through this. Dodie ent does not want to seek medical evaluation and wants to speak with Dr. Street. I stated he will be back on Thursday and I can route the message to him. Patient then hung up on me.El ectronically signed by Bhargav Jamison MD at 12/27/2016 9:03 PM PDTdocumented in this encounte r Plan of Treatment Not on filedocumented as of this encounter Visit Diagnoses Not on filedocumented in this encounter
--- OUTSIDE RECORDS SUMMARY | ~2020-07-14 | XMS | Encounter Summary ---
Demographics + + + | Address | [address] | | | [place] [address] | + + + | Home Phone [...] + + | Author | [facility] | | | and [place] | + + + | Organization | [facility] | | [...] Team Providers + +------+ + | Care Nutrition Counselor Name | Role | Phone | + +------+ + | No, Physician | PCP | Unavailable | + +------+ + Encounter Details +--------+ + + + + | Date | Type | Department | Care Team | Description | +--------+ + + + + | 11/16/ | Orders Only | [facility] | Carmelo Patterson MD | Abdominal pain | | 2015 | | GASTROENTEROLOGY | [address] | (Primary Dx); | | | | [address] [facility] | [place] | Crohn's disease, | | | | [address] | [address] | unspecified | | | | [address] | [phone] | complication (HCC) | | | | [phone] | | | +--------+ + + + [...] complication | + + documented in this encounter"
--- OUTSIDE RECORDS SUMMARY | ~2020-07-14 | XMS | Encounter Summary ---
Demographics + + + | Address | [address] | | | [place] [address] | + + + | Home Phone [...] Team Providers + +------+ + | Care Landscape Gardener Name | Role | Phone | + [...] 05/18/ | Abstract | [facility] | [place], | Insurance | | 2014 | | Center at [facility] [address] | MD | Authorization | | | | [facility] | | (Benji HAIDER approval | | | | for Health and | | - [place]) | | | | [facility], [facility] 2 | | | | | | [place], [place] | | | | | | [address] | | | | | | [phone] | | | +--------+ + + + [...]
--- OUTSIDE RECORDS SUMMARY | ~2020-07-14 | XMS | Encounter Summary ---
Demographics + + + | Address | [address] | | | [place] [address] | + + + | Home Phone [...] | Author | [facility] | | | and [place] | + + + | Organization | [facility] [...] Team Providers + +------+ + | Care Marine Transport Professionals Name | Role | Phone | + [...] + + | 11/16/ | Hospital | [facility] | Carmelo Patterson MD | Abdominal pain | | 2015 | Encounter | [facility] | [address] | (Primary Dx); | | | | [address] | [place] | Crohn's disease, | | | | [place] | [address] | without | | | | [address] | [phone] | complications (HCC) | | | | [phone] | | | +--------+ + + + [...] the physician who did your procedure at [phone] if you have any questions or experience any of the following: ? Increasing abdominal pain, nausea, or vomiting. ? Chills and fever over 101F. ? New abdominal swelling or bloating. ? Signs of rectal bleeding (black or red stool. If you cannot get a hold of your physician, then call the [facility] [phone] . If necessary, report to the Emergency Department at [facility]. Quit smoking: If you smoke or [...] such as nuts, corn, popcorn a nd Thai vegetables. MEDICATIONS: For mild to moderate cramping [...] s and Colitis [employer] of [employer] 549.537.3561 www.ccfa.org National Digestive Diseases Information Clearinghouse (NDDIC) 875.709.4109 www.digestive .niddk.nih.gov Get Prompt Medical Attention if any of the following occur: Fever of 100.4F(38C) or higher, or as directed by your healthcare provider Abdominal pain that does not respond to usual measures Mucus, pus or blood in the stool (dark or bright red) Repeated vomiting Abdominal swelling and pain that does not go away after a few hours [phone] [employer]. [address] [place] [address], [place] [address]. All righ ts reserved. This information is [...] Carmelo Patterson MD at 11/16/2014 8:42 AM PSTHamCarmelo lowe MD - 11/15/2014 8:27 AM PST PRE-ENDOSCOPY [...] Date Crohn's disease (HCC) hospitalized 11/03/12-11/07/12 at [facility] for crohn's flare Asthma Hypothyroidism [...] Laterality: N/A; Surgeon: Carmelo Patterson MD; Location: [facility] MEDICAL PROCEDURE UNIT HOME MEDS: Scheduled Meds: [...] Electronically Signed by: Carmelo Patterson MD 11/15/2014 [facility] Portions of this chart may have been created with [employer] voice recognition software. Occasi onal wrong-word or [...] | | | | | PST | ([facility]) Abdominal | | | | | | [...] | PROVATION | | 11/16/2014 8:31 AMMRN: [id number] #: [id number] of : | | | 1970Admit Type: AmbulatoryAge: 44Room: [facility] 02Gender: MaleNote | | | Status: [...] the nurse | | | and the truck service technician in the pre-procedure area in [...] Scope In: 8:50:16 AMScope Out: 9:09:29 AM [facility]. | | | [facility], [address], [place] [address] | | | [phone] | | | - Continue present medications. [...] were discussed with the patient. | | |Carmeol Patterson MD | | |11/16/2014 9:17 AM | | |Number of Addenda: 0 | | |Note Initiated On: 11/16/2014 8:31 AM | | |Scope Withdrawal Time: 0 hours 10 minutes 57 seconds | | |Total Procedure Duration: 0 hours 19 minutes 13 seconds | | |Scope In: 8:50:16 AM | | |Scope Out: 9:09:29 AM | | | [facility], [address], [place], [place] | | | [address] | | + + -+ + +---------+ [...] 2 mg/mL | | | injection Starting [facility] 11/16/14 | | | at 0734, For [...] PST | | | | | Starting [facility] 11/16/14 at 0731, | | | | | | | Recovery/Phase I | | | | | | + +-------+ +---+---+---+ +---+---+ | | | +---+---+ + +-------+ +------+---+---+ | ondansetron (ZOFRAN) injection | Given | 11/16/19 | 4 mg | | | | PRN, Starting Chelle 11/16/14 at | | 15 8:44 | [...]
--- OUTSIDE RECORDS SUMMARY | ~2020-07-14 | XMS | Encounter Summary ---
Demographics + + + | Address | [address] | | | [place] [address] | + + + | Home Phone [...] | [facility] | | | and [place] | [...] Team Providers + +------+ + | Care Associate Designer Name | Role | Phone | + +------+ + | No, Physician | PCP | Unavailable | + +------+ + Encounter Details +--------+ + + + + | Date | Type | Department | Care Team | Description | +--------+ + + + + | 11/21/ | Hospital | [place] [facility] | Emily Green, | | | 2016 | Encounter | [facility] | DO [address] | | | | | MEDICAL CLIN[facility] [address] | [facility] [place] [address] | | | | | [address] [facility], | [phone] | | | | | [place] [address] | | | | | | [phone] | | | +--------+ + + + [...]
--- OUTSIDE RECORDS SUMMARY | ~2020-07-14 | XMS | Encounter Summary ---
Demographics + + + | Address | [address] | | | [place] [address] | + + + | Home Phone [...] Team Providers + +------+ + | Care Cloth Reeler Name | Role | Phone | + +------+ + | Meaghan Zhong MD | PCP | | + +------+ + Reason for Visit + +--------+ + | Reason | Onset | Comments | | | Date | | + +--------+ + | Medication Refill | 07/20/ | | | | 2014 | | + +--------+ + Encounter Details +--------+ + + + + | Date | Type | Department | Care Team | Description | +--------+ + + + + | 10/23/ | Telephone | Dig[facility]ive Health | [address], | Medication Refill | | 2014 | | [place] [address] | [place] | | | | | [facility] | | | | | | for Health and | | | | | | Healing, [address] | | | | | | [place], [place] | | | | | | [address] | | | | | | [phone] | | | +--------+ + + + [...] Telephone Encounter - Eric Weinstein MA - 07/20/2015 12:49 PM PDTPrior authorization w as done and approved 05/18/2015 - 05/18/2016. I will call pharmacy and/or insurance. Spoke with [employer] and they had placed the wrong date in. They have fixed this and jerrir sunita should be able to process prescription. [facility] and spoke to Xavier and informed them about insurance fix. They wi ll try to run prescription now. elephone Encounter - Carissa Aguilar - 07/20/2015 12:20 PM PDTVM received on 06/29 12/10 at 11:23 AM Patient calling to state that insurance company has denied patients lialda. Pts pharmacy st ated that his insurance company will not pay for rx until it is called in again. Patient would like the request to be sent to [facility] [place] [phone] Acyy tronically signed by Carissa Aguilar at 07/20/2015 12:26 PM PDTdocumented in this encounter Plan of Treatment Not on filedocumented as of this encounter Visit Diagnoses Not on filedocumented in this encounter"
--- OUTSIDE RECORDS SUMMARY | ~2020-07-14 | XMS | Encounter Summary ---
Demographics + + + | Address | [address] | | | [place] [address] | + + + | Home Phone [...] Author + + + | Author | [facility] | | | and [place] | + + + | Organization | [facility] | | [...] Team Providers + +------+ + | Care Bread Distributor Name | Role | Phone | [...] | [address] [place] | [address] [facility], | | | | | [place], [place] | [place] [address] | | | | | [address] | [phone] | | | | | [phone] | | | +--------+ + + + [...]
--- OUTSIDE RECORDS SUMMARY | ~2020-07-14 | XMS | Encounter Summary ---
Demographics + + + | Address | [address] | | | [place] [address] | + + + | Home Phone [...] Team Providers + +------+ + | Care Malted Milk Masher Name | Role | Phone | + [...] | | 2016 | | Center at [facility] [address] | MD | Review (11/21/2015 | | | | [address] [facility] | | Dr. Green OV note - | | | | for Health and | | [place]el [place]ia) | | | | [address], [address] | | | | | | [place], [place] | | | | | | [address] | | | | | | [phone] | | | +--------+ + + + [...]
--- OUTSIDE RECORDS SUMMARY | ~2020-07-14 | XMS | Encounter Summary ---
Demographics + + + | Address | [address] | | | [place] [address] | + + + | Home Phone [...] | Author | [facility] [...] Team Providers + +------+ + | Care Beeswax Bleacher Name | Role | Phone | + [...] + + | 06/22/ | Telephone | [facility] | Carmelo Patterson MD | Appointment (cancel | | 2013 | | GASTROENTEROLOGY | [address] | colonoscopy) | | | | [address] [facility] | [place], [place] | | | | | [address] [place], [place] | [address] | | | | | [address] | [phone] | | | | | [phone] | | | +--------+ + + + [...] Walker to cancel patient. Telephone Encounter - Sandra White - 06/22/2014 9:06 AM PDTPatient is calling to reschedul e 06/23/[address] Patterson. He states he has an upper respiratory bug. Please call E lectronically signed by Sandra White at 06/22/2014 9:07 AM PDTdocumented in this encounter Plan of Treatment Not on filedocumented as of this encounter Visit Diagnoses Not on filedocumented in this encounter"
--- OUTSIDE RECORDS SUMMARY | ~2020-07-14 | XMS | Encounter Summary ---
Demographics + + + | Address | [address] | | | [place] [address] | + + + | Home Phone [...] | Author | [facility] [...] Team Providers + +------+ + | Care House Servant Name | Role | Phone | + [...] MD | Emesis (bowel prep) | | 2014 | | GASTROENTEROLOGY | [address], [place] | | | | | [address] [place] | [address] [place], [place] | | | | | [address] [place], [place] | [address] | | | | | [address] | | | | | | [phone] | | | +--------+ + + + [...]
--- OUTSIDE RECORDS SUMMARY | ~2020-07-14 | XMS | Encounter Summary ---
Demographics + + + | Address | [address] | | | [place] [address] | + + + | Home Phone | | + + + | Preferred Language | Unknown | + + + | Marital Status | Single | + + + | Gnosticism Affiliation | CHR | + + + [...] Providers + +------+ + | Care Supervisor Filtration Name | Role | Phone | + [...] + + + + | 04/18/ | Geology Associate | [facility] | [address], | Crohn's disease of | | 2015 | | [place] at [facility] [address] | MD | large intestine with | | | | [address] [facility] | | other complication | | | | for Health and | | (HCC) (Primary Dx) | | | | [address], [address] | | | | | | [place], [place] | | | | | | [address] | | | | | | [phone] | | | +--------+ + + + [...] Telephone Encounter - Eric Weinstein MA - 05/28/2016 11:20 AM PDTSpoke to Rachid VELEZ. He had to cancel due to sickness and he was waiting for new authorization. Angelina obtained new authorization and faxed to [facility] Informed Rachid of this. He wi ll call to schedule Telephone Encounter - Eric Weinstein MA - 05/28/2016 10:27 AM PDTTried to connect with patient. Left voicemail regarding CT. Office number provided. elephone Kevin - Eric Weinstein MA - 05/20/2016 12:48 PM PDT05/20/2016 imaging was canceled. Not rescheduled elephone Eric Barakat MA - 05/13 9:51 AM PDTRescheduled to 05/20/2016 elephone Eric Barakat MA - 05/02/2016 9:07 AM PD TPatient rescheduled to 05/09/2016Electronically signed by Eric Weinstein MA at 6 9:08 AM PDTTelephone Eric Barakat MA - 04/21/2016 12:51 PM PDTCall Chr istian to inform him that imaging order was faxed and was informed that [facility] called him this morning. He is scheduled for May 01. elephone Eric Barakat MA - 04/18/2016 4:1 0 PM PDTAuthorization completed and order has been faxed. elephone Eric Barakat MA - 016 3:13 PM PDTSpoke to Rachid regarding imaging. He asked if we could send the order t o [facility] in [place]. I let him know that I will send the order to our managed care team and will let him know on ce we get authorization and order being faxed. He understands and had no questions at this time. elephone Eric Barakat MA - 04/18/2016 12: 34 PM PDTFrom: N[address] Street MD Sent: 04/18/2016 12:30 PM To: Eric Weinstein MA Subject: RE: Import Thank you Jeff. Very helpful. Can we also get a CT enterography if he has not had one rece ntly? [place] Indication: Rule out small bowel Crohn's disease. documented in this encounter Plan of Treatment Not on filedocumented as of this encounter Visit Diagnoses + + | Diagnosis | + + | Crohn's disease of large intestine with other complication (HCC) - Primary | + + documented in this encounter"
--- OUTSIDE RECORDS SUMMARY | ~2020-07-14 | XMS | Encounter Summary ---
Demographics + + + | Address | [address] | | | [place] [address] | + + + | Home Phone [...] Author | [facility] | [...] Team Providers + +------+ + | Care Action Installer Name | Role | Phone | + +------+ + | No, Physician | PCP | Unavailable | + +------+ + Encounter Details +--------+ + + + + | Date | Type | Department | Care Team | Description | +--------+ + + + + | 11/18/ | Emergency | [facility] | Levi Hoffmann, | Left upper quadrant | | 2016 - | | MEDICAL CENTER | MD Dereck PATEL | pain; | | | | EMERGENCY JOSE | [place] [address] | Non-intractable | | 11/19/ | | [address] | [phone] | vomiting with | | 2015 | | [place] | | nausea, vomiting of | | | | [address] | | unspecified type | | | | [phone] | | | +--------+ + + + [...] 11/18/152336 Date of Service: 11/18/152335 Status: Signed Housekeeping Associate: Sergey Smallwood RN (Registered Nurse) Up to the bathroom to void. Sergey Smallwood RN 11/18/152336 onver sharad Transaction, Provider Unknown - 11/18/2015 10:47 PM PST ED Notes by Carissa Walters RN at 11/18/152246 Author: Carissa Walters RN Service: (none) Author Type: Registered Nurse Filed: 11/18/152247 Date of Service: 11/18/152246 Status: Signed Housekeeping Associate: Carissa Walters RN (Registered Nurse) Spoke with ADITI Tejada and Fidel Edwards at [facility] in [place], [place] for patient r ecord requests. Mallory provided with [facility] fax number and [facility] main number to contact back if needed. Carissa Walters RN 11/18/15 2248 iLevi stovall MD - 11/18/2015 10:20 PM PSTFormatting of this note might be different from the o riginal. ED Provider Notes by Levi Hoffmann MD at 11/18/152219 Author: Levi Hoffmann MD Service: (none) Author Type: Physician Filed: 11/24/15 0655 Date of Service: 11/18/152219 Status: Signed Housekeeping Associate: Levi Hoffmann MD (Physician) [facility] Department of Emergency Medicine 10:21 PM History [...] year. He is anticipating follow up at [facility] for an explo ratory surgery. Pt [...] resection with colosto my in 2007 at [facility]. The pt was seen in the [...] past medical records on the pt from [facility] in [place]. I have discussed my clinical impression and [...] 1,000 mL (0 mLs Intravenous Stopped 11/18/15 4548) ondansetron (ZOFRAN) injection 4 mg (4 mg Intravenous Given 11/18/15 2303) HYDROmorphone (DILAUDID) injection 1 mg (1 mg [...] Old medical records. Nursing notes. No prior [facility] ED visits. The pt was seen in the ED in [place] 10/12/15, was treated and released. The pt was admit alo to the hospital with a partial bowel obstruction 07/2015. He required NG suction but was d/c without surgery. Laboratory Evaluation Results Procedure Component Value Ref Range Date/Time Magnesium [[id number]] Collected: 11/18/152227 Order Status: Completed Specimen Information: Blood Updated: 11/18/152257 MAGNESIUM 2.1 1.7 - 2.4 mg/dL Lipase [[id number]] Collected: 11/18/152227 Order Status: Completed Specimen Information: Blood Updated: 11/18/152257 LIPASE 113 73 - 393 U/L C-reactive protein [[id number]] Collected: 11/18/152227 Order Status: Completed Specimen Information: Blood Updated: 11/18/152257 CRP <0.2 <0.5 mg/dL Comprehensive metabolic panel [[id number]] Collected: 11/18/152227 Order Status: Completed Specimen Information: [...] 65 U/L EGFR >60 >60 mL/min/1.73m2 Protime [[id number]] Collected: 11/18/152227 Order Status: Completed Specimen Information: Blood Updated: 11/18/152256 INR 1.1 CBC with differential [[id number]] Collected: 11/18/152227 Order Status: Completed Specimen Information: Blood Updated: 11/18/150 WBC 7.82 3.80 - 11.00 K/uL RBC [...] findings in the abdomen. Possible constipation. Narrative: LUTHERAN Vivian BANGURA XR ABDOMEN ACUTE SERIES 11/18/2015 [...] DO In 1 week For follow up [address] [facility] [id number] [facility] If symptoms worsen [address] [place] [facility] [address] Discharge Medications: Discharge Medication List as of 11/18/2015 11:39 PM START taking these medications Details predniSONE (DELTASONE) 20 MG tablet Take 2 tablets by mouth daily., Starting 11/18/2015, Unt il Thu11/23/15, Print Levi Hoffmann MD Procedures Additional Documentation Procedures Attending Note: Documentation assistance provided by Leslie Haji (Scribe). Information recorded by the scribe has been reviewed and validated by me. I dulce pastor with its contents. Levi Hoffmann MD 11/24/15 0655 onversion Transacti on, Provider Unknown - 11/18/2015 10:14 PM PSTFormatting of this note might be different fro m the original. ED Notes by Carissa Walters RN at 11/18/15 6351 Author: Carissa Walters RN Service: (none) Author Type: Registered Nurse Filed: 11/18/152213 Date of Service: 11/18/152213 Status: Signed Housekeeping Associate: Carissa Walters RN (Registered Nurse) Pt states [...] Note | + + | Guru Meneses Conversion - 05/12/2019 5:37 PM PDT JOSIE BANGURAXR ABDOMEN ACUTE | | SERIES11/18/2015 11:05 [...] | | | | | performed at [facility], [address] | | | | [address], | | | | | | [place] [address] | | | | + + + [...] EXTERNAL | | | | performed at [facility], [address] | K/uL | LAB | | | | [address], | | | | | | [place] [address] | | | | + + + + + + | Non- | 4.48Comment: Testing | 4.20 - 5.70 | EXTERNAL | | | Red Blood | performed at [facility], [address] | M/uL | LAB | | | Cells | [address], | | | | | Counted | [place] [address] | | | | + + + + + + | Hemoglobin | 15.2Comment: Testing | 13.2 - 17.0 | EXTERNAL | | | | performed at [facility], [address] | g/dL | LAB | | | | [address], | | | | | | [place] [address] | | | | + + + + + + | Hematocrit, | 44.0Comment: Testing | 39.0 - 50.0 % | EXTERNAL | | | POC | performed at [facility], [address] | | LAB | | | | [address], | | | | | | [place] [address] | | | | + + + + + + | MCV | 98.2Comment: Testing | 80.0 - 100.0 fl | EXTERNAL | | | | performed at [facility], [address] | | LAB | | | | [address], | | | | | | [place] [address] | | | | + + + + + + | MCH | 33.9Comment: Testing | 27.0 - 34.0 pg | EXTERNAL | | | | performed at [facility], [address] | | LAB | | | | [address], | | | | | | [place] [address] | | | | + + + + + + | MCHC | 34.6Comment: Testing | 32.0 - 35.5 | EXTERNAL | | | | performed at [facility], [address] | g/dL | LAB | | | | [address] [place], | | | | | | [place] [address] | | | | + + + + + + | RDW-CV | 44.6Comment: Testing | 37 - 53 fl | EXTERNAL | | | | performed at [facility], [address] | | LAB | | | | [address], | | | | | | [place] [address] | | | | + + + + + + | Platelet | 247Comment: Testing | 150 - 400 K/uL | EXTERNAL | | | Count | performed at [facility], [address] | | LAB | | | Plasma | [address], | | | | | | [place] [address] | | | | + + + + + + | MPV | 7.8Comment: Testing | fl | EXTERNAL | | | | performed at [facility], [address] | | LAB | | | | [address], | | | | | | [place] [address] | | | | + + + + + + | Differentia | AUTOMATEDComment: | | EXTERNAL | | | l Type | Testing performed at | | LAB | | | | [facility], [address], | | | | | | [place] [address] | | | | + + + + + + | % Segmented | 44.75Comment: Testing | % | EXTERNAL | | | | performed at [facility], [address] | | LAB | | | Neutrophils | [address], | | | | | | [place] [address] | | | | + + + + + + | % | 41.80Comment: Testing | % | EXTERNAL | | | Lymphocytes | performed at [facility], [address] | | LAB | | | | [address], | | | | | | [place] [address] | | | | + + + + + + | % Monocytes | 8.72Comment: Testing | % | EXTERNAL | | | | performed at [facility], [address] | | LAB | | | | [address], | | | | | | [place] [address] | | | | + + + + + + | % | 3.60Comment: Testing | % | EXTERNAL | | | Eosinophils | performed at [facility], [address] | | LAB | | | | [address], | | | | | | [place] [address] | | | | + + + + + + | % Basophils | 1.13Comment: Testing | % | EXTERNAL | | | | performed at [facility], [address] | | LAB | | | | [address], | | | | | | [place] [address] | | | | + + + + + + | Absolute | 3.50Comment: Testing | 1.90 - 7.40 | EXTERNAL | | | Segmented | performed at [facility], [address] | K/uL | LAB | | | Neutrophils | [address], | | | | | | [place] [address] | | | | + + + + + + | Absolute | 3.27Comment: Testing | 1.00 - 3.90 | EXTERNAL | | | Lymphocytes | performed at [facility], [address] | K/uL | LAB | | | | [address], | | | | | | [place] [address] | | | | + + + + + + | Absolute | 0.68Comment: Testing | 0.00 - 0.80 | EXTERNAL | | | Monocytes | performed at [facility], [address] | K/uL | LAB | | | | [address], | | | | | | [place] [address] | | | | + + + + + + | Absolute | 0.28Comment: Testing | 0.00 - 0.50 | EXTERNAL | | | Eosinophils | performed at [facility], [address] | K/uL | LAB | | | | [address] [place], | | | | | | [place] [address] | | | | + + + + + + | Absolute | 0.09Comment: Testing | 0.00 - 0.10 | EXTERNAL | | | Basophils | performed at [facility], [address] | K/uL | LAB | | | | [address], | | | | | | [place] [address] | | | | + + + [...] EXTERNAL | | | | performed at [facility], [address] | | LAB | | | | [address], | | | | | | [place] [address] | | | | + + + [...] EXTERNAL | | | | performed at [facility], [address] | | LAB | | | | [address], | | | | | | [place] [address] | | | | + + + [...] EXTERNAL | | | | performed at [facility], [address] | | LAB | | | | [address], | | | | | | [place] [address] | | | | + + + [...] EXTERNAL | | | | performed at [facility], [address] | mmol/L | LAB | | | | [address], | | | | | | [place] [address] | | | | + + + + + + | K | 4.2Comment: Testing | 3.5 - 4.9 | EXTERNAL | | | | performed at [facility], [address] | mmol/L | LAB | | | | [address], | | | | | | [place] [address] | | | | + + + + + + | Cl | 105Comment: Testing | 99 - 109 mmol/L | EXTERNAL | | | | performed at [facility], [address] | | LAB | | | | [address], | | | | | | [place] [address] | | | | + + + + + + | CO2 | 29Comment: Testing | 23 - 32 mmol/L | EXTERNAL | | | | performed at [facility], [address] | | LAB | | | | [address], | | | | | | [place] [address] | | | | + + + + + + | Anion Gap | 13Comment: Testing | 5 - 20 mmol/L | EXTERNAL | | | | performed at [facility], [address] | | LAB | | | | [address], | | | | | | [place] [address] | | | | + + + + + + | Glucose, | 90Comment: Testing | 65 - 99 mg/dL | EXTERNAL | | | Fasting | performed at [facility], [address] | | LAB | | | | [address], | | | | | | [place] [address] | | | | + + + + + + | BUN | 11Comment: Testing | 8 - 25 mg/dL | EXTERNAL | | | | performed at [facility], [address] | | LAB | | | | [address], | | | | | | [place] [address] | | | | + + + + + + | Creatinine | 1Comment: Testing | 0.70 - 1.30 | EXTERNAL | | | | performed at [facility], [address] | mg/dL | LAB | | | | [address], | | | | | | [place] [address] | | | | + + + + + + | BUN/Creatin | 11Comment: Testing | | EXTERNAL | | | ine Ratio | performed at [facility], [address] | | LAB | | | | [address], | | | | | | [place] [address] | | | | + + + + + + | Calcium | 8.8Comment: Testing | 8.5 - 10.5 | EXTERNAL | | | | performed at [facility], [address] | mg/dL | LAB | | | | [address], | | | | | | [place] [address] | | | | + + + + + + | Protein, | 6.6Comment: Testing | 6.3 - 8.2 g/dL | EXTERNAL | | | Total | performed at [facility], [address] | | LAB | | | | [address], | | | | | | [place] [address] | | | | + + + + + + | Albumin | 3.8Comment: Testing | 3.6 - 5.0 g/dL | EXTERNAL | | | | performed at [facility], [address] | | LAB | | | | [address], | | | | | | [place] [address] | | | | + + + + + + | Globulin | 2.8Comment: Testing | 1.3 - 4.9 g/dL | EXTERNAL | | | | performed at [facility], [address] | | LAB | | | | [address], | | | | | | [place] [address] | | | | + + + + + + | A/G Ratio | 1.4Comment: Testing | 1.0 - 2.4 | EXTERNAL | | | | performed at [facility], [address] | | LAB | | | | [address], | | | | | | [place] [address] | | | | + + + + + + | Bilirubin | 0.4Comment: Testing | 0.1 - 1.5 mg/dL | EXTERNAL | | | Total | performed at [facility], [address] | | LAB | | | | [address], | | | | | | [place] [address] | | | | + + + + + + | ALP, | 106Comment: Testing | 35 - 115 U/L | EXTERNAL | | | External | performed at [facility], [address] | | LAB | | | | [address], | | | | | | [place] [address] | | | | + + + + + + | AST | 23Comment: Testing | 10 - 45 U/L | EXTERNAL | | | | performed at [facility], [address] | | LAB | | | | [address], | | | | | | [place] [address] | | | | + + + + + + | ALT | 39Comment: Testing | 10 - 65 U/L | EXTERNAL | | | | performed at [facility], [address] | | LAB | | | | [address], | | | | | | [place] [address] | | | | + + + [...] | | | | | | at [facility], [address] | | | | | | [place] | | | | | | [address] | | | | + + + [...]
--- OUTSIDE RECORDS SUMMARY | ~2020-07-14 | XMS | Encounter Summary ---
Demographics + + + | Address | [address] | | | [place] [address] | + + + | Home Phone [...] Team Providers + +------+ + | Care Dyer Assistant Name | Role | Phone | + +------+ + | Meaghan Zhong MD | PCP | | + +------+ + Encounter Details +--------+ + + + + | Date | Type | Department | Care Team | Description | +--------+ + + + + | 09/30/ | Telephone | [facility] | Bea Parks MD | | | 2007 | | [place] [address] [address] | [address] | | | | | [address] [facility] | [address] [place], | | | | | [facility] and | [place] [address] | | | | | [facility], [facility] [address] | [phone] | | | | | [place], [place] | | | | | | [address] | | | | | | [phone] | | | +--------+ + + + [...] this encounter Miscellaneous Notes Telephone Encounter - Trina Peña, Sonya Jimenez - 09/30/2007 11:57 AM PSTI spoke with Mr Newton jimenez the phone. He is vomiting and unable to keep anything down except for a little bit of adrienne er. He is having abdominal pain and is unable to keep his pain meds down. He's been having chills but has not taken his temperature. He states he has already been to his local ER 3 times since he was discharged on 09/20/07. He was leaving for his local ER after we got of f of the phone. I spoke with Dr Parks and let him know the situation. documented in this encounter Plan of Treatment Not on filedocumented as of this encounter Visit Diagnoses Not on filedocumented in this encounter"
--- OUTSIDE RECORDS SUMMARY | ~2020-07-14 | XMS | Encounter Summary ---
Demographics + + + | Address | [address] | | | [place] [address] | + + + | Home Phone [...] Providers + +------+ + | Care Manager Research Development Name | Role | Phone | [...] Referral To | | 2014 | | [place] [phone] | Gastroenterology | Gastroenterology | | | | [facility] | | | | | | for Health and | | | | | | Healing, [address] | | | | | | [place], [place] | | | | | | [address] | | | | | | [phone] | | | +--------+ + + + [...]
--- OUTSIDE RECORDS SUMMARY | ~2020-07-14 | XMS | Encounter Summary ---
Demographics + + + | Address | [address] | | | [place] [address] | + + + | Home Phone [...] Team Providers + +------+ + | Care Milk Inspector Name | Role | Phone | [...] | | | | | [address] [place], | | | | | | [place] [address] | | | +--------+ + + + [...] + documented as of this encounter Procedure Notes Unknown - 09/17/2007 11:13 AM PSTAssociated Order(s): ANESTHESIA/SEDATION Anesthesia PostO p Report Patient: RACHID BANGURA Med Rec: [id number] Sex M Bdate: 1970 Date/Time Data Entered Into [facility] Anesth PostOp Surgery Date [id number] 09/17/07 11:13 Anesthesiologist ODIN RUSSELL 09/17/07 11:13 Resident Anesthesiolog KARIME TORRES 09/17/07 11:13 documented in this encounter Plan of Treatment [...] | + + | 09/17/2007 11:13 AM [facility] Anesthesia PostOp Report | | | | Patient: RACHID BANGURA Vivian Med Rec: [id number] Lj M Bdate: 1970 | | Date/Time Data | | Entered Into [facility] | | Anesth PostOp | | Surgery Date [id number] 09/17/07 11:13 | | Anesthesiologist ODIN RUSSELL 09/17/07 11:13 | | Resident Anesthesiolog KARIME TORRES 09/17/07 11:13 | | | + + documented in this encounter Visit Diagnoses Not on filedocumented in this encounter"
--- OUTSIDE RECORDS SUMMARY | ~2020-07-14 | XMS | Encounter Summary ---
Demographics + + + | Address | [address] | | | [place] [address] | + + + | Home Phone [...] Author + + + | Author | [facility] | | | and [place] | + + + | Organization | [facility] | | [...] Team Providers + +------+ + | Care Fishery Division Chief Name | Role | Phone | + [...] pain | [address] | | | | | Crohn's | [address] | [place], | | | | | disease, | [address] [place] | [place] [address] | | | | | unspecified | [place], [place] | Phone: | | | | | complication | [address] | [phone] | | | | | Other | Phone: | Fax: | | | | | opiates and | [phone] | [phone] | | | | | related | Fax: | | | | | | narcotics | [phone] | | | | | | causing [...] | | | | | | [place] EDG | | | | | | | TRANSORAL | | | | | | | BIOPSY | | | | | | | SINGLE/MULTI | | | | | | | PLE [place] | | | | | | [...] | Gastroenterol | Diagnoses | James, | [address] [place] | | | | ogtheresa | Regional | Stefano | Gastroenterol | | | | | enteritis of | MD Deep | ogy [address] | | | | | unspecified | [address] | | | | | site | St | [address] [place] | | | | | Crohns | [place], | [place] | | | | | Procedures | [place] [address] | [address] | | | | | evaluate and | Phone: | Phone: | | | | | treat | [phone] | [phone] | | | | | | Fax: | Fax: | | | | | | [phone] | [phone] | +--------+--------+ + + + + Encounter Details +--------+---------+ + + + | Date | Type | Department | Care Team | Description | +--------+---------+ + + + | 03/22/ | Office | [facility] | Reg Zurita, | Abdominal pain | | 2013 | Visit | GASTROENTEROLOGY | [address] | (Primary Dx); | | | | [address] | [address] [place], | Crohn's disease, | | | | [address] [place], [place] | [place] [address] | unspecified | | | | [address] | [phone] | complication (HCC) | | | | [phone] | | | +--------+---------+ + + + [...] Date Crohn's disease (HCC) hospitalized 11/03/12-11/07/12 at [facility] for crohn's flare Asthma Hypothyroidism [...] Reg Garcia MD - 03/22/2014 12:00 AM [facility] GASTROENTEROLOGY [address] [facility] [address] [place] [address] FAX: [phone] OFFICE VISIT HISTORY OF PRESENT ILLNESS: The patient referred from his doctors in [facility]. For e past 3 weeks the [...] M.D. ADONAY / ANN MARIE JOB #: [id number] signed by Reg Zurita MD at 03/23/2014 7:40 AM PDTdocume nted in this encounter Miscellaneous Notes Addendum Note - Thania Vieira RN - 03/22/2014 5:13 PM PDT Addended by: THANIA VIEIRA on: 03/22/2014 17:13 Modules accepted: Orders iscellaneous - GAYATHRI ASHFORD - 03/22/2014 12:00 AM PDT 7: [...]
--- OUTSIDE RECORDS SUMMARY | ~2020-07-14 | XMS | Encounter Summary ---
Demographics + + + | Address | [address] | | | [place] [address] | + + + | Home Phone [...] + | Author | [facility] | | | and [place] | + + + | Organization | [facility] | [...] Team Providers + +------+ + | Care Painter Plate Name | Role | Phone | + [...] [address] [place] | [place] [address] | | | | | [place], [place] | [phone] | | | | | [address] | | | | | | [phone] | | | +--------+ + + + [...]
--- OUTSIDE RECORDS SUMMARY | ~2020-07-14 | XMS | Encounter Summary ---
Demographics + + + | Address | [address] | | | [place] [address] | + + + | Home Phone [...] Team Providers + +------+ + | Care Stoper Name | Role | Phone | + +------+ + | Meaghan Zhong MD | PCP | | + +------+ + Reason for Visit + +--------+ + | Reason | Onset | Comments | | | Date | | + +--------+ + | Suicidal Ideation | 04/03/ | follow up by PAT evening/weekend SW at request of | | | 2017 | [place] | + +--------+ + Encounter Details +--------+ + + + + | Date | Type | Department | Care Team | Description | +--------+ + + + + | 04/09/ | Telephone | Senior Qa Tester | Chayito Perez, | Suicidal Ideation | | 2017 | IP | [address] | BURGLAR ALARM OPERATOR [address] | (follow up by [facility]AD[facility] | | | | [address] [place], | [address] | evening/weekend SW | | | | [place] [address] | [place], [place] | at request of | | | | | [address] | [place]) | +--------+ + + + [...]
--- OUTSIDE RECORDS SUMMARY | ~2020-07-14 | XMS | Encounter Summary ---
Demographics + + + | Address | [address] | | | [place] [address] | + + + | Home Phone [...] | Author | [facility] | [...] Team Providers + +------+ + | Care Stone Rougher Name | Role | Phone | + [...] 2012 | | GASTROENTEROLOGY | [address] | care (Primary Dx) | | | | [address] | [address] [place], | | | | | [address] [place], [place] | [place] [address] | | | | | [address] | [phone] | | | | | [phone] | | | +--------+ + + + [...] Primary Routine general medical examination at a [facility] | | care facility | + + documented in this encounter"
--- OUTSIDE RECORDS SUMMARY | ~2020-07-14 | XMS | Encounter Summary ---
Demographics + + + | Address | [address] | | | [place] [address] | + + + | Home Phone [...] + | Author | [facility] | | | and [place] | + + + | Organization | [facility] | [...] Providers + +------+ + | Care Director Surface Transportation Name | Role | Phone | + [...] | | [address] [place] | [place] [address] | | | | | [place], [place] | [phone] | | | | | [address] | | | | | | [phone] | | | +--------+ + + + [...] is moderate. Job #: | | | [id number] Read By: JEOVANY MIRELES MD Released By: JEOVANY Clayton | | | MD [facility] Date: 07/17/2015 18:04 [...] risk is | | moderate. Job #: [id number] Read By: JEOVANY MIRELES MD Released By: | | JEOVANY MIRELES, MDDate: 07/17/2015 18:04 | | | |COMPARISON: [...]
--- OUTSIDE RECORDS SUMMARY | ~2020-07-14 | XMS | Encounter Summary ---
Demographics + + + | Address | [address] | | | [place] [address] | + + + | Home Phone [...] | Author | [facility] | | | and [place] | + + + | Organization | [facility] [...] Team Providers + +------+ + | Care Pharmacy Manager Name | Role | Phone | [...] + | 04/06/ | Refill | [facility] | Carmelo Patterson MD | Medication Refill | | 2017 | | GASTROENTEROLOGY | [address] [facility] | | | | | [address] [facility] | [place], [place] | | | | | [address] [place], [place] | [address] | | | | | [address] | [phone] | | | | | [phone] | | | +--------+--------+ + + + [...]
--- OUTSIDE RECORDS SUMMARY | ~2020-07-14 | XMS | Encounter Summary ---
Demographics + + + | Address | [address] | | | [place] [address] | + + + | Home Phone [...] Providers + +------+ + | Care Quarry Manager Name | Role | Phone | + +------+ + | Meaghan Zhong MD | PCP | | + +------+ + Reason for Visit +--------+--------+ + | Reason | Onset | Comments | | | Date | | +--------+--------+ + | Other | 12/10/ | | | | 2015 | | +--------+--------+ + Encounter Details +--------+ + + + + | Date | Type | Department | Care Team | Description | +--------+ + + + + | 12/10/ | Telephone | Digestive Health | [address], | Other | | 2015 | | Center at [facility] [address] | | | | | | [facility] | | | | | | for Health and | | | | | | [facility], [facility] 2 | | | | | | [place], [place] | | | | | | [address] | | | | | | [phone] | | | +--------+ + + + [...] Telephone Encounter - Eric Weinstein MA - 12/11/2015 1:51 PM PDTRequest[facility] office visit noteElectronically signed by Eric Weinstein MA at 2:13 PM PDTTelephone Encounter - Tiffany Guallpa RN - 12/11/2015 12:39 PM PDTO utgoing call to [facility] ED [phone]. I spoke with Malia, nurse at [facility] ED who is taking care of patient. Malia states p atient reported to the ED earlier this morning demanding pain medications, patient refused a ny imaging ED requested. Malia states patient frequently reports to their ED demanding pain medications. Malia states they have ordered a CT scan to assess pain which patient has now agreed to complete. Malia states patient has received a 2 mg dose of Dilaudid IV in the ED, patient is demandin g more pain mediations. Per Malia patient received a prescription on 11.26.[address] Green from [place] for Per cocet 10/325 mg a quantity of 126 tablets filled at [facility] pharmacy. elephone Ivone Corbett - 12/11/2015 12:18 PM PDTFiance Thalia called and handed the phone to zander asencio patient. He began yelling loudly and I could not understand him. He then handed the phone back to his fiance who stated that they are currently at the Emergency Room in [place] ([facility]) and our provider needs to call their ED regarding prescribing pain medication bec [facility] will not prescribe it. The fiance stated that the patient is out of Maite (m edication name). I was asked to take a message and the team would check with the provider fo r this request. The phone number or the ED at [facility] is [phone].Electronically sign ed by Ivone Grullon at 12/11/2015 12:21 PM PDTTelephone Encounter - Tiffany Guallpa RN - 12/11/2015 10:07 AM PDTPatient's fiance answered patient's phone stating he is currently a [facility] for evaluation of pain. Patient's fiance is requesting his mesalamine be refilled, I informed her that it was elect ronically submitted to [facility] pharmacy on 12.09.15, she states they will pecan picker his medica tion later today. Patient's fiance states they have not further questions at this time. eleArnel Arias - 12/11/2015 9:37 AM PDTPatient's finance' called in stating that patient was in the middle of a very bad flair. Patient has been out of MESALAMINE (refill/PA is b eing processed) Finance' claims she took patient to ED locally [place] and he was declined service[facility] [phone] and see if patient can be treated. Thalia also seeks call back to her at [phone] documented in this encounte r Plan of Treatment Not on filedocumented as of this encounter Visit Diagnoses Not on filedocumented in this encounter"
--- OUTSIDE RECORDS SUMMARY | ~2020-07-14 | XMS | Encounter Summary ---
Demographics + + + | Address | [address] | | | [place] [address] | + + + | Home Phone [...] + + + | Author | [facility] | | | and [place] | + + + | Organization | [facility] | | | and [...] Team Providers + +------+ + | Care Calendering Supervisor Name | Role | Phone | + +------+ + | Emily Green DO | PCP | | + +------+ + Encounter Details +--------+ + + + + | Date | Type | Department | Care Team | Description | +--------+ + + + + | 01/16/ | [facility] | Shirley Frankel, | | | 2016 | Encounter | [facility] | ANIMAL RIDE MANAGER [address] | | | | | MEDICAL CL[address] | [facility], [place] | | | | | [address] [facility], | [address] | | | | | [place] [address] | | | | | | [phone] | | | +--------+ + + + [...]
--- OUTSIDE RECORDS SUMMARY | ~2020-07-14 | XMS | Encounter Summary ---
Demographics + + + | Address | [address] | | | [place] [address] | + + + | Home Phone [...] Providers + +------+ + | Care Military Pay Technician Name | Role | Phone | + +------+ + | Meaghan Zhong MD | PCP | | + +------+ + Reason for Visit + +--------+ + | Reason | Onset | Comments | | | Date | | + +--------+ + | Question | 05/01/ | | | | 2016 | | + +--------+ + Encounter Details +--------+ + + + + | Date | Type | Department | Care Team | Description | +--------+ + + + + | 05/01/ | Telephone | Digestive Health | [address], | Question | | 2016 | | Center [place] [address] [address] | | | | | | S [facility] | | | | | | for Health and | | | | | | Healing, Building 2 | | | | | | [place], [place] | | | | | | [address] | | | | | | [phone] | | | +--------+ + + + [...] Telephone Encounter - Stacy Elder RN - 05/01/2017 10:31 AM PDTWould not be able to tel l him name and number of his campus dean. Sent to management and provider. elephone Encounter - Arnel Rich - 2016 10:28 AM PDTPatient left voice message on 05/01/17 at 10:17AM Patient states he lost his phone and was calling to ask RN name, and phone number for his l awfreddy. Patient seeks call back At [phone] signed by Arnel Rich at 05/01/2017 10:29 AM PDTdocumented in this encounter Plan of Treatment Not on filedocumented as of this encounter Visit Diagnoses Not on filedocumented in this encounter"
--- OUTSIDE RECORDS SUMMARY | ~2020-07-14 | XMS | Encounter Summary ---
Demographics + + + | Address | [address] | | | [place] [address] | + + + | Home Phone [...] Author | [facility] | | | and [place] | + + + | Organization | [facility] [...] Providers + +------+ + | Care Director Human Services Name | Role | Phone | + +------+ + | No, Physician | PCP | Unavailable | + +------+ + Encounter Details +--------+ + + + + | Date | Type | Department | Care Team | Description | +--------+ + + + + | 09/13/ | Hospital | [facility] | Emily Green, | | | 2014 | Encounter | [facility] | DO [address] | | | | | MEDICAL CLIN[address] | [place] [address] | | | | | [address] [facility], | [phone] | | | | | [place] [address] | | | | | | [phone] | | | +--------+ + + + [...]
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
--- OUTSIDE RECORDS SUMMARY | ~2020-07-14 | XMS | Encounter Summary ---
Demographics + + + | Address | [address] | | | [place] [address] | + + + | Home Phone [...] | Author | [facility] | [...] Team Providers + +------+ + | Care Spinning Operator Name | Role | Phone | [...] | [address] [place], [place] | [place] [address] | | | | | [address] | [phone] | | | | | [phone] | | | +--------+ + + + [...]
--- OUTSIDE RECORDS SUMMARY | ~2020-07-14 | XMS | Encounter Summary ---
Demographics + + + | Address | [address] | | | [place] [address] | + + + | Home Phone [...] | Author | [facility] | | | and [place] | + + + | Organization | [facility] [...] Team Providers + +------+ + | Care Deposition Reporter Name | Role | Phone | [...] | | | disease | | [address] | | | | | without | | [place], | | | | | complication | | [place] [address] | | | | | , | | Phone: | | | | | unspecified | | [phone] | | | | | gastrointest | | Fax: | | | | | inal tract | | [phone] | | | | | location | [...] + + | 04/09/ | Hospital | [facility] | Carmelo Patterson MD | Gastroesophageal | | 2016 | Encounter | MED CTR [facility] INTRA OP | [address] | reflux disease, | | | | [address] | [place] | esophagitis presence | | | | [place] | [address] | not specified | | | | [address] | [phone] | (Primary Dx); | | | | [phone] | | Crohn's disease with | | [...] the physician who did your procedure at [phone] if you have any questions or experience any of the following: ? Increasing abdominal pain, nausea, or vomiting. ? Chills and fever over 101F. ? New abdominal swelling or bloating. ? Signs of rectal bleeding (black or red stool). If you cannot get a hold of your physician, then call the [facility] [phone] . If necessary, report to the Emergency Department at [facility]. Quit smoking: If you smoke or have [...] Carmelo Patterson MD at 04/09/2016 9:33 AM PDTCarmelo Patterson MD - 04/08/2016 9:23 AM PDT PRE-ENDOSCOPY HISTORY AND PRE-SEDATION ASSESSMENT PATIENT NAME: Rachid Glez : 1970 TODAY'S DATE: 04/08/2016 PLANNED PROCEDURE: upper endoscopy and colonoscopy PERTINENT HISTORY/INDICATION FOR PROCEDURE: Rachid Glez is a 45 y.o. male who is undergoing upper endoscopy and colonoscopy for Crohn's disease. PAST HISTORY: Past Medical History Diagnosis Date Crohn's disease (HCC) hospitalized 11/03/12-11/07/12 at [facility] for crohn's flare Asthma Hypothyroidism [...] Laterality: N/A; Surgeon: Carmelo Patterson MD; Location: [facility] MEDICAL PROCEDURE UNIT Colonoscopy N/A 11/16/2014 Procedure: COLONOSCOPY; Surgeon: Carmelo Patterson MD; Location: [facility] MEDICAL PROCEDURE UNI T HOME MEDS: Scheduled [...] Electronically Signed by: Carmelo Patterson MD 04/08/2016 [facility] Portions of this chart may have been created with My Pick Box voice recognition software. Occasi onal wrong-word or [...] Endoscopy Patient: Rachid Glez : 1970 Acct: [id number] Exam Date: Saturday, April 09, 2016 Doctor: Carmelo Patterson MD The chances of difficulty following this procedure are minimal. The following instruction s will assist you in your recovery. 1. Do Not eat or drink anything for 1 hour. Try sips of water first. If tolerated, resu me your regular diet or one recommended by your physician. 2. Do not drive, operate Entitle, make critical decisions, or do activities that [...] 8241. If unable to reach your p kimberlysiginnyan, call [facility] Emergency Department at Ext. 2500 [...] Exams Patient: Rachid Glez : 1970 Acct: [id number] Exam Date: Saturday, April 09, 2016 Doctor: [...] may reach your physician at Work: Ext [phone]. If unable to reach your p conor, call [facility] Emergency Department at Ext. 2500 [...] | PROVATION | | 04/09/2016 9:17 AMMRN: [id number] #: [id number] of : | | | 1970Admit Type: AmbulatoryAge: 45Room: [facility] 02Gender: MaleNote | | | Status: FinalizedAttending MD: Carmelo Patterson, [facility]ITALrocedure: | | | Upper GI endoscopyIndications: Nausea with | | | vomitingProviders: Carmelo Patterson MD, [facility] Centerkandice | | | ADITI Stewart, Kaylen Hernandez RN, Iraida | | | Stepan, Family Court Counsellor, Nima Lynn MD | | | (Anesthesia [...] the | | | anesthesiologist and the cephalometric technician in the pre-procedure area in the [...] Out: 9:46:40 AM | | | [facility], [address], [place] | | | [address] | | | instructions were provided to [...] Out: 9:46:40 AM | | | [facility], [address] [facility], [place], [place] | | | [address] | | + + -+ + +---------+ [...] | [facility] | | GastroenterologyPatient Name: Rachid GlzeProcedkim Date: | PROVATION | | 04/09/2016 9:15 AMMRN: [id number] #: [id number] of : | | | 1970Admit Type: AmbulatoryAge: 45Room: [facility] 02Gender: MaleNote | | | Status: FinalizedAttending MD: Carmelo Patterson, [facility]PITALrocedure: | | | ColonoscopyIndications: Follow-up of Crohn's disease of | | | the colonProviders: Carmelo Patterson MD, Nini | | | ADITI Stewart, Kaylen Hernandez RN, Iraida | | | Stepan, Family Court Counsellor, Nima Lynn MD | | | (Anesthesia [...] the | | | anesthesiologist and the cephalometric technician in the pre-procedure area in the [...] | | 9:53:11 AMScope Out: 10:24:21 AM [facility] | | | [place], [facility] [place] [address] | | | - High fiber diet [...] |Scope Out: 10:24:21 AM | | | [facility], [address], [place] | | | [address] | | + + -+ + +---------+ + + | Performing | Address | City/State/[facility] Hospitalcode | Phone Number | | Organization [...] | | | endoscopic correlation is recommended. ARW:[facility]:C2NR GROSS | | | DESCRIPTION: Received in nine parts. A. Received in formalin | | | labeled "Mosque Newton" and "duodenal bx" on the requisition are | | | eight pink-owens tissue fragments measuring from 0.1-0.7 cm, submitted, | | | all in (A1). B. Received in formalin labeled "Mosque Newton" | | | and "gastric bx" on the requisition are two pink-owens tissue fragments | | | measuring from 0.35-0.55 cm, submitted, all in (B1). C. Received | | | in formalin labeled "Mosque Newton" and "esophagus bx" on the | | | requisition are seven pink-owens tissue fragments measuring from | | | <0.1-0.4 cm, submitted, all in (C1). D. Received in formalin | | | labeled "Mosque Newton" and "right colon bx" on the requisition | | | are four pink-owens tissue fragments measuring from 0.2-0.5 cm, | | | submitted, all in (D1). | | | E. Received in formalin | | | labeled "Mosque Newton" and "transverse colon bx" on the | | | requisition are four pink-owens tissue fragments measuring from 0.4-0.6 | | | cm, submitted all into (E1). F. Received in formalin labeled | | | "Mosque Newton" and "descending colon bx" on the requisition are | | | five pink-owens tissue fragments measuring from 0.1-0.8 cm, submitted, | | | all in (F1). G. Received in formalin labeled "Mosque Newton" | | | and "sigmoid colon bx" on the requisition are six pink-owens tissue | | | fragments measuring from 0.2-0.5 cm submitted, all in (G1). H. | | | Received in formalin labeled "Mosque Newton" and "rectal bx" on | | | the requisition are seven pink-owens tissue fragments measuring from | | | 0.25-0.5 cm, submitted, all in (H1). I. Received in formalin | | | labeled "Mosque Newton" and "sigmoid polyp bx" on the requisition | | | are five red-brown fragments measuring from 0.1-0.4 cm, submitted, all | | | in (I1). ka:CLR:[facility] PERFORMING LABORATORY: Tissue processing | | | and slide preparation were performed by [facility], [address] | [address], [place] [address] (Can Striper: Agusto | | | Jayda Mccracken CLIA#: [id number]). Professional interpretation was | | | performed by [facility], [address], [facility] | | | [place] [address] (Can Striper: Agusto Mccracken M.D.; CLIA#: | | | [id number]). Diagnostician: Ruiz Barrett DO Pathologist | | [...]
--- OUTSIDE RECORDS SUMMARY | ~2020-07-14 | XMS | Encounter Summary ---
Demographics + + + | Address | [address] | | | [place] [address] | + + + | Home Phone [...] | [facility] | | [...] Providers + +------+ + | Care Health Advocate Name | Role | Phone | + [...] | | | CENTER [address] | [facility] | | | | | [address] [place], [place] | [place] [address] | | | | | [address] | [phone] | | | | | [phone] | | | +--------+ + + + [...]
--- OUTSIDE RECORDS SUMMARY | ~2020-07-14 | XMS | Encounter Summary ---
Demographics + + + | Address | [address] | | | [place] [address] | + + + | Home Phone [...] | + + +---------+ + | Thalia Aramni | ECON | Unknown | | + + +---------+ + Care Team Providers + +------+ + | Care Marketing [employer] Name | Role | Phone | + +------+ + | Meaghan Zhong MD | PCP | | + +------+ + Reason for Visit +--------+--------+ + | Reason | Onset | Comments | | | Date | | +--------+--------+ + | Pain | 01/01/ | | | | 2016 | | +--------+--------+ + Encounter Details +--------+ + + + + | Date | Type | Department | Care Team | Description | +--------+ + + + + | 01/01/ | Telephone | Digestive Health | [address], | Pain | | 2016 | | Center at [facility] [address] | | | | | | [address] [facility] | | | | | | for Health and | | | | | | [facility], [facility] [address] | | | | | | [place], [place] | | | | | | [address] | | | | | | [phone] | | | +--------+ + + + [...] this encounter Miscellaneous Notes Telephone Encounter - Jerrod Stacy, RN - 01/02/2017 11:38 AM PDTI spoke with Rachid Glez on the phone to discuss how he is doing since going into the ED yesterday. This morning was rough again with abdominal pain, but he was given pain medication, steroid s, and nausea medication by the ED provider. Will get records from ED visit. They provided a pain prescription for him to use at home and he it is helping with his curr ent pain. They also prescribed oral prednisone. We discussed him getting re-established at [facility] with a PCP and seeing them next we ek. He also hasn't been seen in our clinic in over a year and should follow-up with us for poppy purvis. He stated that he is struggling financially and cannot afford the gas to get up to our clin ic. I discussed potentially using medical transport and incorporating our social services designee to help . He agreed and had no further questions. The plan: Reach out to social work to see if he can get medical transport for an appointment with Dr. Street Contact scheduling team to get na appointment made up here He will call [facility] to get seen by PCP next week. Electronically sig steven by Stacy Elder RN at 01/02/2017 11:52 AM PDTTelephone Encounter - Stacy Elder R N - 01/01/2017 9:50 AM PDTI spoke with Rachid Glez on the phone to check in and see how he is doing. He is currently in the ED - he got there 20 min ago. He is experiencing the same severe pain he had over the weekend. Informed him that I am gla d he is being evaluated and getting help with the pain. He has not heard from the PCP office in [place]. Will touch base with them because they c ould provide more consistent care and prevent as many ED visits. Attempted to call [place] PCP office and they are not accepting new patients. They advise Rachid Glez go to [facility]. [facility] would be able to see him next week and get re-establis hed. He has been seen there in the past. Will discuss with Rachid tomorrow. elephone Encounter - Any Solo - 01/01/2017 8:38 AM PDTPatient calling stating that he is having a flare up and is in a lot of pain. He stated he is going to the ER Aranza RN Patient stated again he just wants to go to the ER. Please follow up documented in this encounter Plan of Treatment Not on filedocumented as of this encounter Visit Diagnoses Not on filedocumented in this encounter"
--- OUTSIDE RECORDS SUMMARY | ~2020-07-14 | XMS | Encounter Summary ---
Demographics + + + | Address | [address] | | | [place] [address] | + + + | Home Phone [...] Author | [facility] | [...] Providers + +------+ + | Care Clinical Professor Name | Role | Phone | + +------+ + | Emily Green DO | PCP | | + +------+ + Reason for Visit + +--------+ + | Reason | Onset | Comments | | | Date | | + +--------+ + | Appointment | 03/10/ | r/s procedure | | | 2016 | | + +--------+ + Encounter Details +--------+ + + + + | Date | Type | Department | Care Team | Description | +--------+ + + + + | 03/10/ | Telephone | [facility] | Carmelo Patterson MD | Appointment (r/s | | 2016 | | GASTROENTEROLOGY | [address] | procedure ) | | | | [address] [facility] | [place], [place] | | | | | [address] [place], [place] | [address] | | | | | [address] | [phone] | | | | | [phone] | | | +--------+ + + + [...] Telephone Encounter - Nemo Tejada RN - 03/10/2016 11:02 AM PDTPt indicated he has no money to get to [facility] from [place] this month. Authorization is still pending as well; r escheduled pt for EGD/Colon on 04/09/[address] Patterson; pt advised he has the prep bu t would like a new letter sent to him; advised I would do this; notified [place] booking and Insu ayo Specialist. TTelephone Encounter - Henna Lebron - 03/10/2016 8:12 AM PDTPatient left a voicemail stati ng he needs to reschedule procedure because he cannot afford it at this time. Please give hi m a call back to do this. doc umented in this encounter Plan of Treatment Not on filedocumented as of this encounter Visit Diagnoses Not on filedocumented in this encounter"
--- OUTSIDE RECORDS SUMMARY | ~2020-07-14 | XMS | Encounter Summary ---
Demographics + + + | Address | [address] | | | [place] [address] | + + + | Home Phone [...] + | Author | [facility] [place] | | | and [place] | + + + | Organization | [facility] | [...] + +------+ + | Care Vice President And Portfolio Manager Name | Role | Phone | [...] | | | | | | site ([facility]) | | | | | | | [[phone]] | | | | | | | Procedures | | | | | | | COLONOSCOPY | | | +--------+--------+ + + + + Encounter Details +--------+---------+ + + + | Date | Type | Department | Care Team | Description | +--------+---------+ + + + | 11/16/ | Surgery | [facility] | Carmelo Patterson MD | COLONOSCOPY | | 2015 | | MED CTR MP INTRA OP | [address] | | | | | [address] | [place] | | | | | [place] | [address] | | | | | [address] | [phone] | | | | | [phone] | | | +--------+---------+ + + + [...] the physician who did your procedure at [phone] if you have any questions or experience any of the following: ? Increasing abdominal pain, nausea, or vomiting. ? Chills and fever over 101F. ? New abdominal swelling or bloating. ? Signs of rectal bleeding (black or red stool. If you cannot get a hold of your physician, then call the [facility] [phone] . If necessary, report to the Emergency Department at [facility]. Quit smoking: If you smoke or [...] such as nuts, corn, popcorn a nd Swedish vegetables. MEDICATIONS: For mild to moderate cramping [...] s and Colitis [employer] of [employer] 942.806.1663 www.ccfa.org National Digestive Diseases Information Clearinghouse (NDDIC) 514.282.7410 www.digestive .niddk.nih.gov Get Prompt Medical Attention if any of the following occur: Fever of 100.4F(38C) or higher, or as directed by your healthcare provider Abdominal pain that does not respond to usual measures Mucus, pus or blood in the stool (dark or bright red) Repeated vomiting Abdominal swelling and pain that does not go away after a few hours 4768-0800 [employer]. [address] [place] [address]. All righ ts reserved. This information is [...] Date Crohn's disease (HCC) hospitalized 11/03/12-11/07/12 at [facility] for crohn's flare Asthma Hypothyroidism Hx of [...] Location: [facility] MEDICAL PROCEDURE UNIT HOME MEDS: Scheduled Meds: [...] Electronically Signed by: Carmelo Patterson MD 11/15/2014 [facility] Portions of this chart may have been created with [employer] voice recognition software. Occasi onal wrong-word or [...] | | | | | PST | ([facility]) Abdominal | | | | | [...] | [facility] | | GastroenterologyPatient Name: [facility] Date: | PROVATION | | 11/16/2014 8:31 AMMRN: [id number] #: [id number] of : | | | 1970Admit Type: AmbulatoryAge: 44Room: [facility] 02Gender: MaleNote | | | Status: FinalizedAttending MD: Carmelo Patterson, [facility]cedure: | | | ColonoscopyIndications: Follow-up [...] the nurse | | | and the licensed chemical spray technician in the pre-procedure area in the [...] Scope In: 8:50:16 AMScope Out: 9:09:29 AM [facility]. | | | [facility], [facility] [place] [address] | | | [phone] | | | - Continue present medications. [...] |Scope Out: 9:09:29 AM | | | [facility], [address] [place], [place] | | | [address] | | + + -+ + +---------+ [...] PST | | | | | Starting [facility] 11/16/14 at 0731, | | | [...]
--- OUTSIDE RECORDS SUMMARY | ~2020-07-14 | XMS | Encounter Summary ---
Demographics + + + | Address | [address] | | | [place] [address] | + + + | Home Phone [...] | Author | [facility] [...] Team Providers + +------+ + | Care Shot Polisher And Inspector Name | Role | Phone | [...] [address] [facility] | [place] | | | | | [address] [place] | [address] | | | | | [address] | [phone] | | | | | [phone] | | | +--------+ + + + [...]
--- OUTSIDE RECORDS SUMMARY | ~2020-07-14 | XMS | Encounter Summary ---
Demographics + + + | Address | [address] | | | [place] [address] | + + + | Home Phone [...] Team Providers + +------+ + | Care Box Machine Operator Name | Role | Phone [...] Records | | 2015 | on | [place] [facility] 7437 | MD | Review | | | | [address] [facility] | | | | | | for Health and | | | | | | [facility], [facility] | | | | | | [place], [place] | | | | | | [address] | | | | | | [phone] | | | +--------+ + + + [...] Telephone Encounter - Nilton Street MD - 03/12/2016 3:59 PM PDTI have received and revi ewed the following records for Rachid Glez: DEXA 07/17/[address] A/P 05/18/14 -PD mildly prominent CT A/P 11/03/14 (for pain) -normal small bowel -questionable mild wall thickening CT A/P 01/04/15 -tiny epigastric ventral abdominal hernia Hospitalization 08/06/15 -AXR suspicious for SBO (dilated SB loops with air-fluid levels) -given hydrocortisone 100mg every 8 hours, with NG tube placement SBFT 08/08/15 -no evidence of bowel obstruction -possible edema in transverse colon CT A/P 12/11/15 -anterior abdominal wall hernia including fat and vessels -normal bowel and pancreas Labs: 09/13/15 Albumin 3.5 07/03/15 Hgb 14.4 Albumin 3.5 TSH 0.03 Ferritin 51.5 12/25/14 Hgb 14.1 Albumin 3.8 Lipase 330 11/03/14 Hgb 15.3 Albumin 4.4 Lipase 189 10/24/14 Hgb 15.2 08/18/14 Hgb 14.5 Albumin 4.1 Lipase 201 08/11/14 Lipase 1006 AST 35 ALT 72 ALP 74 Bili 0.3 05/18/14 Lipase 834 doc umented in this encounter Plan of Treatment Not on filedocumented as of this encounter Visit Diagnoses Not on filedocumented in this encounter"
--- OUTSIDE RECORDS SUMMARY | ~2020-07-14 | XMS | Encounter Summary ---
Demographics + + + | Address | [address] | | | [place] [address] | + + + | Home Phone [...] Team Providers + +------+ + | Care Design Specialist Name | Role | Phone | + +------+ + | Meaghan Zhong MD | PCP | | + +------+ + Reason for Visit + +--------+ + | Reason | Onset | Comments | | | Date | | + +--------+ + | Suicidal | 12/29/ | | | | 2017 | | + +--------+ + Encounter Details +--------+ + + + + | Date | Type | Department | Care Team | Description | +--------+ + + + + | 12/29/ | Telephone | [facility] | [address], | Suicidal | | 2016 | | Center at [facility] [address] | | | | | | [facility] | | | | | | for Health and | | | | | | Healing, [address] | | | | | | [place], [place] | | | | | | [address] | | | | | | [phone] | | | +--------+ + + + [...] Telephone Encounter - Nilton Street MD - 12/29/2016 8:31 AM PDTI spoke to Rachid's P CP, Dr. Green. She reports last seeing him in mid November at which point she reiterated the violation of his pain contract and the reason for no further prescription of narcotics. He had mentioned to her that he had established with a new PCP in [place]. We will plan to find Rachid's new PCP and discuss this further, in addition to reaching out to him. If he truly is suicidal with a plan, we may need to alert appropriate authoriti es. documented in thi s encounter Plan of Treatment Not on filedocumented as of this encounter Visit Diagnoses Not on filedocumented in this encounter"
--- OUTSIDE RECORDS SUMMARY | ~2020-07-14 | XMS | Encounter Summary ---
Demographics + + + | Address | [address] | | | [place] [address] | + + + | Home Phone [...] Author + + + | Author | [facility] [place] | | | and [place] | + + + | Organization | [facility] [place] | | | [...] + + | 02/21/ | Hospital | [facility] | Emily Green, | | | 2014 | Encounter | [facility] | DO [address] | | | | | MEDICAL CLIN[address] | [facility] [place] [address] | | | | | [address] [facility], | [phone] | | | | | [place] [address] | | | | | | [phone] | | | +--------+ + + + [...]
--- OUTSIDE RECORDS SUMMARY | ~2020-07-14 | XMS | Encounter Summary ---
Demographics + + + | Address | [address] | | | [place] [address] | + + + | Home Phone [...] | Author | [facility] | | | and [...] Providers + +------+ + | Care Manufacturing Engineer Name | Role | Phone | [...] + + | 08/23/ | Telephone | [facility] | Carmelo Patterson MD | Referral | | 2013 | | GASTROENTEROLOGY | [address] [facility] | (PreAuthorization) | | | | [address] [facility] | [place], [place] | (Patient needs to | | | | [address], [place] | [address] | call if he wants to | | | | [address] | [phone] | schedule) | | | | [phone] | | | +--------+ + + + [...] this encounter Miscellaneous Notes Telephone Encounter - Sandra White - 08/23/2014 8:44 AM PSTCalled and left voicemail for hospice office coordinator Martha at Dr. Green's office. Advised [...]
--- OUTSIDE RECORDS SUMMARY | ~2020-07-14 | XMS | Encounter Summary ---
Demographics + + + | Address | [address] | | | [place] [address] | + + + | Home Phone [...] Author | [facility] [place] | | | and [place] [...] Team Providers + +------+ + | Care Loom Operator Apprentice Name | Role | Phone | + +------+ + | No, Physician | PCP | Unavailable | + +------+ + Encounter Details +--------+ + + + + | Date | Type | Department | Care Team | Description | +--------+ + + + + | 11/17/ | Hospital | [facility] | Emily Green, | | | 2014 | Encounter | [facility] | [address] | | | | | MEDICAL CLIN[address] | [place] [address] | | | | | [address] [facility], | [phone] | | | | | [place] [address] | | | | | | [phone] | | | +--------+ + + + [...]
--- OUTSIDE RECORDS SUMMARY | ~2020-07-14 | XMS | Encounter Summary ---
Demographics + + + | Address | [address] | | | [place] [address] | + + + | Home Phone [...] Author | [facility] [place] [...] Providers + +------+ + | Care Business Analysis Professional Name | Role | Phone | [...] | | | | | | | [place] | | | | | | | COLONOSCOPY, | | | | | | | DIAGNOSTIC | | | | | | | [place] | | | | | | | [...] + | 04/14/ | Anesthesia | [facility] | Ashwin Wright | | | 2013 | Event | MED CTR MP INTRA OP | MD Anuja [address] | | | | | [address] | [address] [place], [place] | | | | | [place], [place] | [address] | | | | | [address] | | | | | | [phone] | Roque Watson | | | | | | P, MD [address] | | | | | | [address] [place], [place] | | | | | | [address] | | | | | | [phone] | | | | | | | [...] encounter [place] Notes Anesthesia Postprocedure Evaluation - Ashwin [place] MD - 04/14/2014 12:33 PM PD T ANESTHESIA POSTANESTHESIA EVALUATION Rachid Glez 43 y.o. male 1970 [id number] Procedure: Procedure(s):EGD / COLONOSCOPY Filed Vitals: 04/14/14 1002 04/14/14 1229 BP: 121/77 124/68 Pulse: 50 69 Temp: 36.5 C (97.7 F) Resp: 20 20 SpO2: 97% 96% Cooperates? Yes Mental Status Performs simple tasks. Respiratory Satisfactory - Airway patent (self maintained). Cardiovascular Satisfactory Blood pressure and heart rate acceptable Temperature Satisfactory Pain Satisfactory N/V Control Satisfactory Hydration Satisfactory No signs of dehydration Complications None apparent Electronically signed by Ashwin [place] MD 04/14/2014 12:33 [facility] nesthesia P reprocedure Evaluation - Ashwin Wright MD - 04/13/2014 5:14 PM PDT ANESTHESIA PREANESTHESIA EVALUATION Rachid Glez 43 y.o. male 1970 [id number] Scheduled procedure EGD / COLONOSCOPY [EGDCOLO] - EGD / COLONOSCOPY Medical history, anesthesia, medications, allergy histories reviewed. ECG reviewed. Labs reviewed. ROS / Med History Ane No anesthesia complications. Pulm (+) asthma (on prednisone at times, inhalers). Psych (+) depression (onRx). GI/Hep (+) reflux/GERD (on Rx). Endo (+) hypothyroidism (on Rx). Physical Exam Airway TM >3 FB, Mouth opening >2 FB. Neck: full ROM, extends >30 degrees. Dental ; (-) dentures-upper. CV cardiovascular normal Rhythm regular. Pulm Clear to auscultation bilaterally. Neuro Grossly normal. Anesthesia Plan ASA 2 Type: Total IV anesthesia. Induction: Intravenous. Potential problems: None anticipated. Monitors: Standard ASA monitors. Consent statement: . Consenting person understands and agrees to proceed. PARQ. Electronically Signed by: Ashwin Wright MD ESig date/time: 04/13/2014 17:14 documented i n this encounter Plan of Treatment Not on [...] +-------+ +--------+---+---+ +-------+ +--------+---+---+ | Given | 07/18/20 | 100 mg | | | | [...]
--- OUTSIDE RECORDS SUMMARY | ~2020-07-14 | XMS | Encounter Summary ---
Demographics + + + | Address | [address] | | | [place] [address] | + + + | Home Phone [...] Author | [facility] [...] Providers + +------+ + | Care Lab Scientist Name | Role | Phone | + +------+ + PCP | Unavailable | + +------+ + Encounter Details +--------+ + + + + | Date | Type | Department | Care Team | Description | +--------+ + + + + | 01/22/ | Hospital | [facility] | Meaghan Zhong | | | 2009 | Encounter | HOSPITAL XRAY [address] | [address] | | | | | [place] | [address] [facility], | | | | | [place], [place] | [place] [address] | | | | | [address] | [phone] | | | | | [phone] | | | +--------+ + + + [...]
--- OUTSIDE RECORDS SUMMARY | ~2020-07-14 | XMS | Encounter Summary ---
Demographics + + + | Address | [address] | | | [place] [address] | + + + | Home Phone [...] + | Author | [facility] [place] [...] Team Providers + +------+ + | Care Family Practice Nurse Practitioner Name | Role | Phone | + [...] | | | | disease of | [address] | | | | | | large | ST | | | | | | intestine | [place], | | | | | | with | [place] [address] | | | | | | unspecified | Phone: | | | | | | complication | [phone] | | | | | | s ([facility]) | | | | | | | [...] | | | | disease of | [address] | | | | | | large | ST | | | | | | intestine | [place], | | | | | | with | [place] [address] | | | | | | unspecified | Phone: | | | | | | complication | [phone] | | | | | | s ([facility]) | | | | | | | [...] + + | 05/09/ | Hospital | [facility] | [address], | Crohn's disease of | | 2016 | Encounter | MED CTR [address] | [address] | large intestine with | | | | [place], | [place] [address] | unspecified | | | | [place] [address] | [phone] | complications (HCC) | | | | [phone] | | | +--------+ + + + [...]
--- OUTSIDE RECORDS SUMMARY | ~2020-07-14 | XMS | Encounter Summary ---
Demographics + + + | Address | [address] | | | [place] [address] | + + + | Home Phone [...] + | Author | [facility] [place] | | | and [place] [...] Providers + +------+ + | Care Wire Products Inspector Name | Role | Phone | [...] | | | CENTER [address] | [facility] | | | | | [address] [place], [place] | [place] [address] | | | | | [address] | [phone] | | | | | [phone] | | | +--------+ + + + [...]
--- OUTSIDE RECORDS SUMMARY | ~2020-07-14 | XMS | Encounter Summary ---
Demographics + + + | Address | [address] | | | [place] [address] | + + + | Home Phone | | + + + | Preferred Language | Unknown | + + + | Marital Status | Single | + + + | Quaker Affiliation | CHR | + + + [...] Providers + +------+ + | Care Engineering Officer Name | Role | Phone | [...] Street, | Blood Test Results | | 2016 | on | Center at [facility] [address] | MD | (Multiple dates - | | | | [address] [facility] | | [place] [address] | | | | for Health and | | [facility]avi[facility]) | | | | [address] | | | | | | [place], [place] | | | | | | [address] | | | | | | [phone] | | | +--------+ + + + [...] Telephone Encounter - Eric Weinstein MA - 12/12/2015 4:26 PM [facility] [address] [place] [address] #[id number] [facility] [address] [facility] [place] [address] #[id number] signed by Eric Weinstein MA at 12/12/2015 4:27 PM PDTdocumen alo in this encounter Plan of Treatment Not [...] (A) | 70 - 100 mg/dL | [facility] | | | PLASMA | | | HOSPITAL | | | (LAB) | | | | | + +---------+ + + + | BUN, PLASMA | 14 | 6 - 23 mg/dL | [facility] | | | (LAB) | | | HOSPITAL | | + +---------+ + + + | CREATININE | 1.01 | 0.60 - 1.35 | [facility] | | | PLASMA | | mg/dL | HOSPITAL | | | (LAB) | | | | | + +---------+ + + + | ALBUMIN, | 4.7 | 3.5 - 5.0 g/dL | [facility] | | | PLASMA | | | HOSPITAL | | | (LAB) | | | | | + +---------+ + + + | BILIRUBIN | 0.7 | 0.0 - 1.2 | [facility] | | | TOTAL | | Transcutaneous | HOSPITAL | | | | | Bilirubinometer | | | + +---------+ + + + | ALK PHOS | 98 | 30 - 128 U/L | [facility] | | | | | | [facility]OSPITAL | | + +---------+ + + + | AST(SGOT) | 33 | 13 - 39 U/L | [facility] | | | | | | [...] 52 | 7 - 52 U/L | [facility] | | | | | | [facility]OSPITAL | | + +---------+ + + + + + | Specimen | + + | Blood - Blood | + + + +---------+ + + | Performing | Address | City/State/Zipcode | Phone Number | | Organization | | | | + +---------+ + + | [facility] | | | [phone] | | HOSPITAL | | | | + +---------+ + + | [facility] | | [place], [place] | [phone] | | HOSPITAL | | | | + +---------+ + + CBC, WITH DIFFERENTIAL (12/11/2015 10:05 AM PDT) + + + + + + | Component | Value | Ref Range | Performed | Pathologist | | | | | At | Signature | + + + + + + | WHITE CELL | 12.2 (A) | 4.5 - 11.0 K/cu | [facility] | | | COUNT | | [...] (A) | 39 - 80 % | [facility] | | | % | | | [facility]ITAL | | + + + + + + | LYMPHOCYTE | 12 (A) | 24 - 44 % | [facility] | | | % | | | [facility]OS[facility]ITAL | | + + + + + + + + | Specimen | + + | Blood - Blood | + + + +---------+ + + | Performing | Address | City/State/Zipcode | Phone Number | | Organization | | | | + +---------+ + + | [facility] | | | [phone] | | HOSPITAL | | | | + +---------+ + + | [facility] | | [place], [place] | [phone] | | HOSPITAL | | | | [...] + + | [facility] | [address] | [place] [address] | [phone] | | HOSPITAL | [address] | | [...] | [address] | [place] [address] | [phone] | | HOSPITAL | [address] | | [...] + + | [facility] | [address] | [place] [address] | [phone] | | HOSPITAL | [address] | | [...] + + | [facility] | [address] | [place] [address] | [phone] | | HOSPITAL | [address] | | [...] + + | [facility] | [address] | [place] [address] | [phone] | | HOSPITAL | [address] | | [...] | [address] | [place] [address] | [phone] | | HOSPITAL | [address] | | [...] | [address] | [place] [address] | [phone] | | HOSPITAL | [address] | | [...] | [address] | [place] [address] | [phone] | | HOSPITAL | [address] | | [...] + + | [facility] | [address] | [place] [address] | [phone] | | HOSPITAL | [address] | | [...] + + + + + | [facility] | [address] | [place] [address] | [phone] | | HOSPITAL | [address] | | [...] + + | [facility] | [address] | [place] [address] | [phone] | | HOSPITAL | [address] | | [...] | [address] | [place] [address] | [phone] | | HOSPITAL | [address] | | [...] + + | [facility] | [address] | [place] [address] | [phone] | | HOSPITAL | [address] | | [...] + + | [facility] | [address] | [place] [address] | [phone] | | HOSPITAL | [address] | | [...] + + | [facility] | [address] | [place] [address] | [phone] | | HOSPITAL | [address] | | [...] + + | [facility] | [address] | [place] [address] | [phone] | | HOSPITAL | [address] | | [...] + + + + + | [facility] | [address] | [place] [address] | [phone] | | HOSPITAL | [address] | | [...] + + | [facility] | [address] | [place] [address] | [phone] | | HOSPITAL | [address] | | [...] + + | [facility] | [address] | [place] [address] | [phone] | | HOSPITAL | [address] | | [...] + + | [facility] | [address] | [place] [address] | [phone] | | HOSPITAL | [address] | | [...] + + + + + | [facility] | [address] | [place] [address] | [phone] | | HOSPITAL | [address] | | [...] 3.7 | 3.0 - 4.5 g/dL | URTH | | | PLASMA | | | [...] | [address] | [place] [address] | [phone] | | HOSPITAL | [address] | | [...] + + | [facility] | [address] | [place] [address] | [phone] | | HOSPITAL | [address] | | [...] + + | [facility] | [address] | [place] [address] | [phone] | | HOSPITAL | [address] | | [...] + + | [facility] | [address] | [place] [address] | [phone] | | HOSPITAL | [address] | | [...] | [address] | [place] [address] | [phone] | | HOSPITAL | [address] | | | + + + + + documented in this encounter Visit Diagnoses Not on filedocumented in this encounter"
--- OUTSIDE RECORDS SUMMARY | ~2020-07-14 | XMS | Encounter Summary ---
Demographics + + + | Address | [address] | | | [place] [address] | + + + | Home Phone [...] Team Providers + +------+ + | Care Pre Algebra Teacher Name | Role | Phone | [...] Medical Records | | 2015 | | [place] [address] | | Review | | | | [address] [facility] | | | | | | for Health and | | | | | | [facility] 2 | | | | | | [place], [place] | | | | | | [address] | | | | | | [phone] | | | +--------+ + + + [...]
--- OUTSIDE RECORDS SUMMARY | ~2020-07-14 | XMS | Encounter Summary ---
Demographics + + + | Address | [address] | | | [place] [address] | + + + | Home Phone [...] | Author | [facility] [place] | [...] Team Providers + +------+ + | Care Benzol Still Operator Name | Role | Phone | [...] | | | | [address] [facility] | [place] | | | | | [address] [place] | [address] | | | | | [address] | [phone] | | | | | [phone] | | | +--------+ + + + [...] ST. | [address] | [place] | [phone] | | [facility] | | [address] | | | - LABORATORY [...] Comment | + + | [facility] | + + + +---------+ + [...] Agency Comment | + + | [facility] | + + + +---------+ + [...] Agency Comment | + + | [facility]el [facility] | + + + +---------+ + + [...] Comment | + + | [facility] | + + + +---------+ + [...] Comment | + + | [facility] | + + + +---------+ + + | Performing | Address | City/State/Zipcode | Phone Number | | Organization | | | | + +---------+ + + | EXTERNAL LAB | | | | + +---------+ + + documented in this encounter Visit Diagnoses Not on filedocumented in this encounter"
--- OUTSIDE RECORDS SUMMARY | ~2020-07-14 | XMS | Encounter Summary ---
Demographics + + + | Address | [address] | | | [place] [address] | + + + | Home Phone [...] Author | [facility] [place] | | | and [place] | + + + | Organization | [facility] [...] Team Providers + +------+ + | Care Electrode Turner And Finisher Name | Role | Phone | + [...] | | | CENTER [address] | [facility] | | | | | [address] [place], [place] | [employer] [address] | | | | | [address] | [phone] | | | | | [phone] | | | +--------+ + + + [...]
--- OUTSIDE RECORDS SUMMARY | ~2020-07-14 | XMS | Encounter Summary ---
Demographics + + + | Address | [address] | | | [place] [address] | + + + | Home Phone [...] Team Providers + +------+ + | Care Documentation Spec Name | Role | Phone | [...] Rd | | | | | | [place], [place] | | | | | | [address] | | | +--------+ + + + [...] Dimitrios Giordano S - 11/25/2007 6:48 PM [facility] [id number] [place] [id number] Admission Date: 09/16/2007 Discharge Date: 09/20/2007 Staff Physician: Bea Parks M.D. The patient was admitted to the [facility]. Principal Final Diagnosis: [...] his hospital admission. He was transitioned off BOBJ DEVELOPER to oral pain medications. His diet was [...] tiffany in 10 days to 2 weeks. Jayda Sprague M.D. [facility] / [id number] / [id number] / [id number] / Reviewed or Edited By Dimitrios Giordano M.D. on 09-29-2007 Electronically signed by Bea Parks 11-25-2007 03:43:16 PM documented in this enco unter Plan of Treatment Not on filedocumented as of this encounter Visit Diagnoses Not on filedocumented in this encounter"
[~2020-07-14 13:10] MED LIST changes: +EUTHYROX175 MCG PO
[2020-07-14] MEDS ORDERED: PRAZOSIN HCL1 MG PO (18:35)
[2020-07-14] MEDS ORDERED: PREDNISONE20 MG PO (18:46)
[2020-07-14] MEDS ORDERED: REGLAN10 MG PO (18:46)
--- OUTSIDE RECORDS SUMMARY | 2020-07-14 19:12 | XMS ---
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 If services are needed through [facility] please call: Baljinder [phone] [place]; [phone] Crisis [phone] Care History Substance Use/Overdose 02/16/2018 [facility] USE CAUTION WITH NARCOTICS . PATIENT [...] BE BACK. CAME TO ED. Medical/Surgical 03/24/2018 [facility] - CHW met with patient and [...] ED please contact Community Health WorkerRachel at [phone]. These are guidelines and the provider should exercise clinical judgment when providing care. E.D. VISIT COUNT (12 MO.) 5 [facility] TOTAL 5 NOTE: Visits indicate total known visits. ED/UCC VISIT TRACKING (12 MO.) 07/14/2020 13:10 [facility] [place] TYPE: Emergency 03/25/2020 15:10 [facility] [place] TYPE: Emergency COMPLAINT: - WEAKNESS DIAGNOSES: - Other technician terminal and repeater (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 - Chronic kidney disease, unspecified - Weakness - Anxiety disorder, unspecified - Unspecified asthma, uncomplicated - Other specified abnormal findings of blood chemistry - Allergy status to narcotic agent status - Hypothyroidism, unspecified 12/09/2019 13:16 [facility] [place] TYPE: Emergency COMPLAINT: - MED CLEARANCE DIAGNOSES: - Allergy status to narcotic agent status - Anxiety disorder, unspecified - Unspecified asthma, uncomplicated - Other skilled nursing (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 - Encounter for other general examination - Allergy status to analgesic agent status - Hypothyroidism, unspecified - Adjustment disorder with mixed anxiety and depressed mood 10/14/2019 14:37 [facility] [place] TYPE: Emergency COMPLAINT: - ABDOMINAL PAIN DIAGNOSES: - Hypothyroidism, unspecified - Allergy status to narcotic agent status - Anxiety disorder, unspecified - Unspecified asthma, uncomplicated - Other skilled nursing (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 - Unspecified abdominal pain - Crohn's disease, unspecified, without complications - jail (current) use of inhaled steroids 09/03/2019 15:01 [facility] [place] TYPE: Emergency COMPLAINT: - POSSIBLE HERNIA DIAGNOSES: - Anxiety disorder, unspecified - Hypothyroidism, unspecified - Personal history of nicotine dependence - Other skilled nursing (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 - Allergy status to analgesic agent status - Allergy status to narcotic agent status - Periumbilical pain - Unspecified asthma, uncomplicated INPATIENT VISIT TRACKING (12 MO.) No inpatient visits to display in this time frame [email or web address]
== END 2020-07-14 19:00 | disposition home or self-care (01) ==
LOC: ED 13:10
DX: K50.90 Crohn's disease, unspecified, without complications (principal); E03.9 Hypothyroidism, unspecified; J45.909 Unspecified asthma, uncomplicated; F41.9 Anxiety disorder, unspecified; Z87.891 Personal history of nicotine dependence; Z88.5 Allergy status to narcotic agent; Z88.6 Allergy status to analgesic agent; Z79.899 Other long term (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
CPT/HCPCS: 74177; 99284-25; J1100; J1170; J2765; Q9967

== ENCOUNTER 2020-09-16 06:58 | Emergency (ER) | payer OTHER ==
[~2020-09-16] VITALS: Ht 157.5 cm; Wt 59.0 kg
[~2020-09-16 06:58] MED LIST changes: +PRAZOSIN HCL1 MG PO; +REGLAN10 MG PO
--- OUTSIDE RECORDS SUMMARY | 2020-09-16 07:00 | XMS ---
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 If services are needed through [employer] please call: Baljinder [phone] [place]\T\nbsp; [phone] [facility] [phone] Care History Medical/Surgical 03/24/2018 [facility] met with patient and discussed [...] ED please contact Community Health WorkerRachel at [phone]. These are guidelines and the provider should exercise clinical judgment when providing care. Substance Use/Overdose 02/16/2018 [facility] USE CAUTION WITH NARCOTICS . PATIENT THREATENED [...] TO ED. E.D. VISIT COUNT (12 MO.) 5 [facility]. TOTAL 5 NOTE: Visits indicate total known visits. ED/C VISIT TRACKING (12 MO.) 09/16/2020 06:58 [facility] [place] TYPE: Emergency COMPLAINT: - BLOOD IN STOOL 07/14/2020 13:10 [facility] [place] TYPE: Emergency COMPLAINT: - ABD PN DIAGNOSES: - Allergy status to narcotic agent - Allergy status to analgesic agent - Personal history of nicotine dependence - Upper abdominal pain, unspecified - Anxiety disorder, unspecified - Unspecified asthma, uncomplicated - Other care home (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 - Crohn's disease, unspecified, without complications - Hypothyroidism, unspecified 03/25/2020 15:10 [facility] [place] TYPE: Emergency COMPLAINT: - WEAKNESS DIAGNOSES: - Other intermediate card tender (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 - Chronic kidney disease, unspecified - Weakness - Anxiety disorder, unspecified - Unspecified asthma, uncomplicated - Other specified abnormal findings of blood chemistry - Allergy status to narcotic agent - Hypothyroidism, unspecified 12/09/2019 13:16 [facility] [place] TYPE: Emergency COMPLAINT: - MED CLEARANCE DIAGNOSES: - Allergy status to narcotic agent - Anxiety disorder, unspecified - Unspecified asthma, uncomplicated - Other care home (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 - Encounter for other general examination - Allergy status to analgesic agent - Hypothyroidism, unspecified - Adjustment disorder with mixed anxiety and depressed mood 10/14/2019 14:37 [facility] [place] TYPE: Emergency COMPLAINT: - ABDOMINAL PAIN DIAGNOSES: - Hypothyroidism, unspecified - Allergy status to narcotic agent - Anxiety disorder, unspecified - Unspecified asthma, uncomplicated - Other care home (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 - Unspecified abdominal pain - Crohn's disease, unspecified, without complications - parts 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
[2020-09-16] MEDS ORDERED: PREDNISONE20 MG PO (11:06)
== END 2020-09-16 11:35 | disposition home or self-care (01) ==
LOC: ED 06:58
DX: K92.2 Gastrointestinal hemorrhage, unspecified (principal); K50.90 Crohn's disease, unspecified, without complications; E03.9 Hypothyroidism, unspecified; J45.909 Unspecified asthma, uncomplicated; Z88.5 Allergy status to narcotic agent; Z88.6 Allergy status to analgesic agent; Z79.899 Other long term (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
CPT/HCPCS: 80053; 83690; 85025; 99284; J7512

== ENCOUNTER 2021-07-15 07:58 | Emergency (ER) | payer OTHER ==
[~2021-07-15] VITALS: Ht 157.5 cm; Wt 55.0 kg
--- OUTSIDE RECORDS SUMMARY | 2021-07-15 10:54 | XMS ---
PreManage Notification: JOSIE BANGURA Security Personal Health Coach Events No recent Security Events currently on file CRITERIA MET - [facility] [place] CARE PROVIDERS Stefan Mcmillan Family Medicine Current DO PHONE: [phone] NISHA VARGHESE Physician Design Engineer Current PHONE: [phone] STIVEN SIBLEY Physician Design Engineer 09/05/2019-Current PHONE: [phone] MARQUEZ MAI Family Medicine: Geriatric Medicine Current PHONE: Unknown Guidelines Source: [employer] [facility] Guidelines Date: 02/06/2020 Care Coordination: Member is currently enrolled in Mental Health Services through [employer] services. If services are needed through [employer] please call: Baljinder [phone] [facility]; [phone] Crisis [phone] Care History Substance Use/Overdose 02/16/2018 [facility] USE CAUTION WITH NARCOTICS . PATIENT [...] TO ED. E.D. VISIT COUNT (12 MO.) 2 [facility]. TOTAL 2 NOTE: Visits indicate total known visits. ED/UCC VISIT TRACKING (12 MO.) 07/15/2021 07:59 [facility] TYPE: Emergency COMPLAINT: - ABDOMINAL PAIN 09/16/2020 06:58 [facility] TYPE: Emergency COMPLAINT: - BLOOD IN STOOL DIAGNOSES: - Crohn's disease, unspecified, without complications - Dizziness and giddiness - Allergy status to narcotic agent - Other fpc (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 - Hypothyroidism, unspecified - Allergy status to analgesic agent - Allergy status to analgesic agent - Allergy status to narcotic agent - Unspecified asthma, uncomplicated - Gastrointestinal hemorrhage, unspecified INPATIENT VISIT TRACKING (12 MO.) No inpatient visits to display in this time frame [id number]
== END 2021-07-15 11:08 | disposition home or self-care (01) ==
LOC: ED 07:58
DX: R10.10 Upper abdominal pain, unspecified (principal); E03.9 Hypothyroidism, unspecified; J45.909 Unspecified asthma, uncomplicated; Z87.891 Personal history of nicotine dependence; Z88.5 Allergy status to narcotic agent; Z88.6 Allergy status to analgesic agent; Z79.899 Other long term (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
CPT/HCPCS: 80053; 81001; 83690; 85025; 96374; 96375; 96376; 99284-25; J1170; J2405; J7030

== ENCOUNTER 2021-08-11 11:25 | Emergency (ER) | payer OTHER ==
[~2021-08-11] VITALS: Ht 157.5 cm; Wt 50.8 kg
--- OUTSIDE RECORDS SUMMARY | 2021-08-11 11:30 | XMS ---
PreManage Notification: JOSIE BANGURA Security Insecticide Mixer Events No recent Security Events currently on file CRITERIA MET - Group Notification - [facility] - 2 Visits in 30 Days - PDMP CARE PROVIDERS Stefan Mcmillan Family Medicine Current DO PHONE: [phone] NISHA VARGHESE Physician Canary Raiser Current PHONE: [phone] STIVEN SIBLEY Physician Canary Raiser 09/05/2019-Current PHONE: [phone] MARQUEZ MAI Family Medicine: Geriatric Medicine Current PHONE: Unknown Care Guidelines exist for the following facilities: [facility] ( 02/06/2020 ) Care History Substance Use/Overdose 02/16/2018 [facility] [...] TO ED. E.D. VISIT COUNT (12 MO.) 3 [facility] TOTAL 3 NOTE: Visits indicate total known visits. ED/UCC VISIT TRACKING (12 MO.) 08/11/2021 11:28 [facility] TYPE: Emergency COMPLAINT: - STOMACH ISSUE 07/15/2021 07:59 [facility] TYPE: Emergency COMPLAINT: - ABDOMINAL PAIN DIAGNOSES: - Allergy status to narcotic agent - Upper abdominal pain, unspecified - Unspecified asthma, uncomplicated - Personal history of nicotine dependence - Allergy status to analgesic agent - Other care home (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 - Hypothyroidism, unspecified 09/16/2020 06:58 [facility] [place] TYPE: Emergency COMPLAINT: - BLOOD IN STOOL DIAGNOSES: - Crohn's disease, unspecified, without complications - Dizziness and giddiness - Allergy status to narcotic agent - Other care home (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 - Hypothyroidism, unspecified - Allergy status to analgesic agent - Allergy status to analgesic agent - Allergy status to narcotic agent - Unspecified asthma, uncomplicated - Gastrointestinal hemorrhage, unspecified INPATIENT VISIT TRACKING (12 MO.) No inpatient visits to display in this time frame [id number]
[2021-08-11] MEDS ORDERED: BUDESONIDE EC3 MG PO (11:44)
[2021-08-11] MEDS ORDERED: ONDANSETRON ODT4 MG PO (11:44)
[2021-08-11] MEDS ORDERED: HYDROCODON-ACE1 EA11 PO (17:10)
[2021-08-11] MEDS ORDERED: PREDNISONE20 MG PO (17:10)
== END 2021-08-11 18:02 | disposition home or self-care (01) ==
LOC: ED 11:25
DX: K50.90 Crohn's disease, unspecified, without complications (principal); E03.9 Hypothyroidism, unspecified; J45.909 Unspecified asthma, uncomplicated; Z87.891 Personal history of nicotine dependence; Z90.49 Acquired absence of other specified parts of digestive tract; Z88.6 Allergy status to analgesic agent; Z88.5 Allergy status to narcotic agent; Z79.899 Other long term (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
CPT/HCPCS: 74177; 80053; 81001; 83690; 85025; 96375; 96376; 99284-25; A9270; J1170; J2405; J2930; J7030

== ENCOUNTER 2021-08-16 06:33 | Emergency (ER) | payer OTHER ==
[~2021-08-16] VITALS: Ht 157.5 cm; Wt 57.5 kg
[~2021-08-16 06:33] MED LIST changes: +BUDESONIDE EC3 MG PO; +HYDROCODON-ACE1 EA11 PO; +ONDANSETRON ODT4 MG PO
--- OUTSIDE RECORDS SUMMARY | 2021-08-16 06:40 | XMS ---
PreManage Notification: JOSIE BANGURA Security Rough And Trueing Machine Operator Events No recent Security Events currently on file CRITERIA MET - [facility] - 2 Visits in 30 Days - Group Notification CARE PROVIDERS Stefan Mcmillan Family Medicine Current DO PHONE: [phone] NISHA VARGHESE Physician Supervisor Plasma Current PHONE: [phone] STIVEN SIBLEY Physician Supervisor Plasma 09/05/2019-Current PHONE: [phone] MARQUEZ MAI Family Medicine: Geriatric Medicine Current PHONE: Unknown Care Guidelines exist for the following facilities: [facility] ( 02/06/2020 ) Care History Substance Use/Overdose 02/16/2018 [facility] USE CAUTION WITH NARCOTICS . [...] ED. E.D. VISIT COUNT (12 MO.) 4 [facility] TOTAL 4 NOTE: Visits indicate total known visits. 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
[2021-08-16] MEDS ORDERED: LEVOTHYROXINE150 MCG PO (17:27)
[2021-08-17] MEDS ORDERED: MESALAMINE1.2 GM PO (11:13)
== END 2021-08-16 09:17 | disposition left against medical advice (07) ==
LOC: ED 06:33
DX: K85.90 Acute pancreatitis without necrosis or infection, unspecified (principal); E03.9 Hypothyroidism, unspecified; J45.909 Unspecified asthma, uncomplicated; Z90.49 Acquired absence of other specified parts of digestive tract; Z88.6 Allergy status to analgesic agent; Z88.5 Allergy status to narcotic agent; Z79.52 Long term (current) use of systemic steroids; Z79.899 Other long term (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
CPT/HCPCS: 74022; 80053; 83690; 85007; 85025; 96374; 99284-25; J2405; J7030; U0003

== ENCOUNTER 2021-08-16 13:23 | Inpatient (IN) | payer OTHER ==
[~2021-08-16] VITALS: Ht 157.5 cm; Wt 55.4 kg
--- OUTSIDE RECORDS SUMMARY | 2021-08-16 13:30 | XMS ---
PreManage Notification: JOSIE BANGURA Security Rolling Machine Tender Events No recent Security Events currently on file CRITERIA MET - Group Notification - [facility] - 2 Visits in 30 Days CARE PROVIDERS Stefan Mcmillan Family Medicine Current DO PHONE: [phone] NISHA VARGHESE Physician Wind Technician Current PHONE: [phone] STIVEN SIBLEY Physician Wind Technician 09/05/2019-Current PHONE: [phone] MARQUEZ MAI Family Medicine: Geriatric Medicine Current PHONE: Unknown Care Guidelines exist for the following facilities: [facility] ( 02/06/2020 ) Care History Substance Use/Overdose 02/16/2018 [facility] USE CAUTION WITH NARCOTICS . [...] ED. E.D. VISIT COUNT (12 MO.) 5 [facility] TOTAL 5 NOTE: Visits indicate total known visits. ED/UCC VISIT TRACKING (12 MO.) 08/16/2021 13:23 [facility] TYPE: Emergency COMPLAINT: - ABDOMINAL PAIN 08/16/2021 06:33 [facility] TYPE: Emergency COMPLAINT: - ABDOMINAL PAIN 08/11/2021 11:28 [facility] TYPE: Emergency COMPLAINT: - STOMACH ISSUE DIAGNOSES: - Upper abdominal pain, unspecified - Crohn's disease, unspecified, without complications - Hypothyroidism, unspecified - Personal history of nicotine dependence - Other intermission coordinator (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 - Allergy status to [...] Allergy status to analgesic agent - Other intermission coordinator (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 - Hypothyroidism, unspecified 09/16/2020 06:58 [facility] TYPE: Emergency COMPLAINT: - BLOOD IN STOOL DIAGNOSES: - Crohn's disease, unspecified, without complications - Dizziness and giddiness - Allergy status to narcotic agent - Other [facility] (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 - Hypothyroidism, unspecified - Allergy status to analgesic agent - Allergy status to analgesic agent - Allergy status to narcotic agent - Unspecified asthma, uncomplicated - Gastrointestinal hemorrhage, unspecified INPATIENT VISIT TRACKING (12 MO.) No inpatient visits to display in this time frame [id number]
--- NOTE | 2021-08-16 16:30 | NUR ---
PT ARRIVED TO FLOOR VIA [facility] FROM ER. PT ACCOMPP[ANIED BY ADITI CARTAGENA. VSS OBTAINED, IVF STARTED, WEIGHT OBTAINED. PT WITH C/O CHEST TIGHTNESS. PT WITH WHEEZES PRESENT. PT WITH HX OF ASTHMA. DR. WHYTE NOTIFIED. RT IN TO DO BREATHING TREATMENT. PT REPORTS LESS TIGHHTNESS AT THIS TIME.
[2021-08-16] MEDS ORDERED: LEVOTHYROXINE150 MCG PO (17:27)
--- NOTE | 2021-08-16 17:30 | NUR ---
IN TO CHECK ON PT. PT DINNER GERRY AT BED SIDE. IVF CHANGED TO CONTINUOUS PER ORDERS. PT UP TO USE THE BATHROOM, NOW LAYING ON LEFT SIDE AT THIS. PT ALERT AND ORIENTED X 4. PLEASANT AND COOPERATIVE WITH STAFF, MAKES NEEDS KNOWN. BED RAILS X 2 UP. NO OTHER CONCERS OT REQUEST AT THIS TIME. CALL LIGHT IN REACH.
--- NOTE | 2021-08-16 18:08 | NUR ---
HOT CHOCOLATE, ICE WATER, JELLO, AND WARM BLANKETS PROVIDED. I AND O'S COMPLETED. PT REPORTS 7/10 PAIN TO MID-ABD. PRN PAIN MANAGEMENT GIVEN PER ORDERS. NO OTHER CONCERNS OR REQUESTS AT THIS. CALL LIGHT IN REACH.
--- NOTE | 2021-08-16 18:27 | NUR ---
PT CRACKING JOKES AND LAUGHING. CALL LIGHT WITHIN REACH, NO FURTHER NEEDS AT THIS TIME.
--- NOTE | 2021-08-16 20:15 | NUR ---
PT AWAKES EASILY, ON ROOM AIR, COOP WITH ASESSMENT AND VITALS. IVF INFUSING W/O PROBLEMS, ALERT, ORIENTED AND LETS HIS NEEDS KNOW. CALL LIGHT AND FLUIDS AT BEDSIDE. NO C/O ABD PAIN OR N/V AT THIS TIME
--- NOTE | 2021-08-16 22:11 | NUR ---
C/O ABD PAIN 04/06, MEDICATED WITH OXYCODONE 5MG PO. IVF INFUSING, NO EMESIS
--- NOTE | 2021-08-16 23:21 | NUR ---
RESTING, NO DISTRESS, EYES CLOSED. CALL LIGHT AND FLUIDS AT BEDSIDE, NO EMESIS, IVF INFUSING
--- NOTE | 2021-08-17 01:00 | NUR ---
resting, eyes closed, on room air, ivf infusing, call light at bedside
--- NOTE | 2021-08-17 02:16 | NUR ---
awakes easily, c/o /10 abd pain, no emesis, medicated with Oxycodone 5mg po coop with assessment
--- NOTE | 2021-08-17 03:43 | NUR ---
pt in br, having loose bm's. C/o increased 8/10 abd pain, cramping. staesd that he had no relief from Oxycodone. Medicated with Dilaudid 0.5mg IV.
--- NOTE | 2021-08-17 06:01 | NUR ---
c/o abd pain 05/07 medicated with dilaudid 0.5mg
--- NOTE | 2021-08-17 06:02 | NUR ---
Pt on room air, lungs clear, no c/o sob or resp distress, has had neb tx in am. IVF infusing w/o problems, has solumedrol IV. Has been medicated with Oxycodone with fair to poor abd pain relief. Medicated with Dilaudid 0.5mg Iv with good pain relief. voiding large amounts of clear urine. has had liquid bm X1 with increased abd cramping and pain at thaqt time. pt teary eyed often this shift. has slept off and on, incependent in room. no emesis, tolerating liquids well, no emesis
--- NOTE | 2021-08-17 06:47 | NUR ---
UP TO BR, HAVING LIQUID BM, C/O INCREASED ABD CRAMPING AND PAIN , NOT RELIEVED BY DILAUDID GIVEN EARLIER, MEDICATED WITH 10MG OXYCODONE AT THIS TIME.
--- NOTE | 2021-08-17 07:10 | NUR ---
this rn recived report from eugenia swanson. this rn in pts room to check on pt. pt in restroom at this time. this rn will be back
--- NOTE | 2021-08-17 07:37 | NUR ---
pt had 500cc liquid emesis, medicated with Zofran 4mg IV
--- NOTE | 2021-08-17 09:15 | NUR ---
THIS RN IN PTS ROOM TO GIVE MORNING MEDS. PT ALSO REQUESTING PRN DILUADID AT THIS TIME- 0.5MG GIVEN. PT STATES THAT THE NAUSEA MEDS GIVEN THIS AM HELPED. NO OTHER COMPLAINTS AT THIS TIME.
--- NOTE | 2021-08-17 10:28 | NUR ---
THIS RN IN PTS ROOM DUE TO FLUIDS BEING EMPTY, THIS RN HUNG NEW BAG. PT SNORING IN ROOM. PT WOKE UP TO RN BEING IN ROOM PT STATES THAT THE NEXT TIME HE GETS PAIN MEDS HE WOULD LIKE MORE NAUSEA MEDS. THIS RN ENCOURGAED PT TO CALL WHEN HE NEEDS THESE
--- NOTE | 2021-08-17 10:55 | NUR ---
PT PRESSED CALL LIGHT FOR PAIN MEDS. THIS RN IN ROOM TO GIVE MEDS. SANTOS MARSHALL GETTING VITALS AT THIS TIME. THIS RN NOTED THAT PTS HR WAS 48 ON MONITOR. THIS RN COUNTED BMP ON RADIAL PULSE 45-48. THIS RN LISTENED WITH STETHASCOPE, HEART SOUNDS WNL BUT HR STILL AT 45-48. THIS RN INFORMED MD OF THIS. MD ORDERED EKG. RT NOTIFIED OF NEW ORDER. THIS RN OKAY TO GIVE COMPAZINE FOR NAUSEA BUT TO HOLD PAIN MED UNTIL EKG. PT BECAME UPSET WITH THIS RN DUE TO HAVING TO HOLD PAIN MED DUE TO LOW HR. THIS RN STATED THAT WE WILL HOLD UNTIL EKG COMPLETE AND SEE WHAT MD HAS TO SAY. THIS RN DISCUSSED WITH THAT PER PARAMETERS AND SAFETY THE MED WAS BEING HELD. PT STAED "EVERYTHIME THE PAIN GETS WORSE SOMETHING LIKE THIS HAPPENS" THIS RN DISCUSSED WITH PT THAT THIS IS OCCURRING DUE TO PT BEING MONITORED CLOSELY.
[2021-08-17] MEDS ORDERED: MESALAMINE1.2 GM PO (11:13)
--- NOTE | 2021-08-17 11:17 | NUR ---
MED REC COMPLETE
--- NOTE | 2021-08-17 11:18 | NUR ---
PT HAS THREATENED AMA WHEN THIS RN DISCUSSED WITH PT THAT HE WOULD HAVE TO WAIT FOR EKG. EKG COMPLETE. SHOWS SINUS BRADYCARDIA WITH A BPM OF 41. MD OKAY WITH OXY BUT NO MORE DILUADID. PT CALLED HE WAS GETTING IN SHOWER. THIS RN IN TO GIVE PAIN MEDS. PT IN SHOWER. THIS RN KNOCKED ON DOOR. PT SCREAMED "WHAT?". THIS RN OFFERED PAIN. PT STATES THAT HE WANTS IT AFTER HIS SHOWER. THIS RN DISCUSSED WITH PT TO CALL WHEN HE IS DONE. PT HAD DISCONNECTED HIMSELF FROM IV AND HAD NOT HAD HIS IV WRAPPED PRIOR TO SHOWER.
--- NOTE | 2021-08-17 11:41 | NUR ---
THIS RN IN PTS ROOM TO GIVE PT PAIN MED. PT HAD PULLED OUT IV. PT HAS A VISITOR IN ROOM. ROOM REEKS OF MARIJUANA. THISNR INFORMED CHARGE NURSE JAYDE. THIS RN PROVIDED PT WITH 5MG OF OXY AT THIS TIME.
--- NOTE | 2021-08-17 12:46 | NUR ---
THIS RN IN PTS ROOM TO RESTART PTS IV. PT APPEARS TO BE RESTING COMFORTABLY AT THIS TIME WITH RESPIRATIONS NOTED.
--- NOTE | 2021-08-17 13:24 | NUR ---
THIS RN ATTEMPTED TWICE TO GET AN IV ON PT. PT CLAMPED DOWN TWICE WHEN ATTEMPTING IV- PT HAS THE VEINS BUT DOES NOT TOELRATED GETTING POKED WELL. PT STATES THAT HE DOES NOT WANT ANOTHER NURSE TO COME IN AND TRY STATING "IM NOT A FUCKING GUINNEAPIG" THIS RN UPDATED .
--- NOTE | 2021-08-17 14:22 | NUR ---
THIS RN IN PTS ROOM TO GIVE SCHEDULED MEDS. PT APPEARS TO BE RESTING COMFORTABLY AT THIS TIME. PT ABLE TO WAKE UP AND TAKE MEDS BUT FALLS BACK ASLEEP EVEN WHILE HAVING BP TAKEN. PT DENIES NAUSEA WITH YES/NO QUESTIONS. PAIN APPEARS CONTROLLED DUE TO PT APPEARING TO BE COMFORTABLE
--- NOTE | 2021-08-17 15:02 | EKG ---
[facility] [address] [place] [address] Signed Marked sinus bradycardia Abnormal ECG When compared with ECG of 25-MAR-2020 16:02, QRS axis shifted left Borderline criteria for Inferior infarct are no longer present Confirmed by WILLY WHYTE MD ([id number]) on 08/17/2021 3:01:54 PM Electronically Signed By: WILLY WHYTE MD 08/17/21 1502 PATIENT NAME: JOSIE BANGURA Electrocardiogram DATE OF : 68 PHYSICIAN: WILLY WHYTE MD REPORT #: [id number] REPORT IS CONFIDENTIAL AND NOT TO BE RELEASED WITHOUT AUTHORIZATION
--- NOTE | 2021-08-17 17:25 | NUR ---
this rn in pts room to give scheduled meds. pt states that is pain is tolerable and has no nausea at this time.
--- NOTE | 2021-08-17 17:56 | NUR ---
pt able to keep his dinner down and requesting a turkey sandwich. pt denies nausea so this rn to advance pts diet
--- NOTE | 2021-08-17 18:40 | NUR ---
this rn in pts room to check on pt. pt states that he was alb eot keep his meal down and has no pain or nausea and needs nothing at this time
--- NOTE | 2021-08-17 19:51 | NUR ---
Pt resting at this time, laying on R side, no iv sites, on room air, lungs clear, no distress, abd tender, soft mamadou. last bm today, voiding QS yellow urine, tolerating liquids well, ,upgraded to regular diet, had a sandwich, tolerated well, no emesis. flat affect. independent in room, call light and fluids at hands reach. coop with assessment and vitals
--- NOTE | 2021-08-17 22:08 | NUR ---
resting, eys closed, onroom air, call light and liquids at bedside,
--- NOTE | 2021-08-18 00:51 | NUR ---
Resting, turns self in bed, on room air, no c/o pain, uses urinal, voiding qs, call light and fluids at bedside
--- NOTE | 2021-08-18 00:52 | NUR ---
PATIENT RESTING WITH NO SIGNS OF INCREASED WOB. NO INTERVENTIONS REQUIRED AT THIS TIME.
--- NOTE | 2021-08-18 02:26 | NUR ---
resting, on room air, turns and repositions self in bed. voiding QS. call light and fluids at bedside, no n/v
--- NOTE | 2021-08-18 03:00 | NUR ---
awake, c/o 7/10 abd pain. voiding qs, no emesis, tolerating liquids well. coop with assessment
--- NOTE | 2021-08-18 04:44 | NUR ---
PT HAS SLEPT MOST OF THIS SHIFT, ON ROOM AIR, RECEIVED NEB TX, LUNGS CLEAR. NO COUGH, NO EMESIS. NO BM THIS SHIFT. MEDICATED WITH OXYCODONE AND TYLENOL X1 PER C/O ABD PAIN, EFFECTIVE. TOLERATING LIQUIDS WELL, NO EMESIS VOIDING QS. ALERT AND ORIENTED, HAS NO IV SITES, LOOKING FORWARD TO GOING HOME TODAY STATED
--- NOTE | 2021-08-18 07:32 | NUR ---
this rn received report from eugenia swanson. pt walking [place] during report.
--- NOTE | 2021-08-18 09:30 | NUR ---
PATIENT RESTING IN THE BED. BREAKFAST EATEN. WATER REFRESHED. NO FURTHER NEEDS AT THIS TIME.
--- NOTE | 2021-08-18 09:30 | NUR ---
this rn in pts room to give tomasa baig. pt up walking halls. when pt asked how his pain was pt did a dance and stated "fantastic" pt has no concerns this am
--- NOTE | 2021-08-18 10:41 | NUR ---
PT UP WALKING THE HALLS- HAS ON AND OFF ALL MORNING
[2021-08-18] MEDS ORDERED: PREDNISONE10 MG PO (10:50)
[2021-08-18] MEDS ORDERED: OXYCODONE HCL5 MG PO (10:51)
--- NOTE | 2021-08-18 11:15 | NUR ---
this rn in pts room to do pts discharge teaching- pt states that he would like to stay for lunch.
== END 2021-08-18 13:00 | disposition home or self-care (01) | DRG 387 ==
LOC: ED 13:23 → MS 15:14
PROVIDERS: ADMIT Internal Medicine; ATTEND Internal Medicine
DX: K50.10 Crohn's disease of large intestine without complications (principal); E03.9 Hypothyroidism, unspecified; Z20.822 Contact with and (suspected) exposure to COVID-19; Z88.6 Allergy status to analgesic agent; Z79.52 Long term (current) use of systemic steroids; Z79.899 Other long term (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
CPT/HCPCS: 80053; 85025; 93005; 93010; 94640; C9113; J0780; J1170; J1650; J1720; J2405; J7030; J7121; J7512; U0003

== ENCOUNTER 2021-11-05 08:33 | Emergency (ER) | payer OTHER ==
[~2021-11-05] VITALS: Ht 157.5 cm; Wt 55.3 kg
[~2021-11-05 08:33] MED LIST changes: +LEVOTHYROXINE150 MCG PO; +MESALAMINE1.2 GM PO; +OXYCODONE HCL5 MG PO
--- OUTSIDE RECORDS SUMMARY | 2021-11-05 08:40 | XMS ---
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 Events 2 event(s) in the past 18 months Most recent security events: Elopement at [facility] 08/16/2021 06:33 - Other Details: PATIENT LEFT AMA Elopement at [facility] 08/16/2021 06:33 - Other Details: PATIENT LEFT AMA CRITERIA MET - Group Notification CARE PROVIDERS Stefan [facility] Current DO PHONE: [phone] NISHA VARGHESE Physician Clinical Operations Manager Current PHONE: Unknown STIVEN SIBLEY Physician Clinical Operations Manager 09/05/2019-Current PHONE: [phone] MARQUEZ MAI Family Medicine: Geriatric Medicine Current PHONE: Unknown Care Guidelines exist for the following facilities: [facility] [place] ( 02/06/2020 ) Care History Substance Use/Overdose 02/16/2018 [facility] USE CAUTION WITH NARCOTICS . [...] HE WOULD BE BACK. CAME TO ED. EEdwigeD. VISIT COUNT (12 MO.) 5 [facility]. TOTAL 5 NOTE: Visits indicate total known visits. ED/UCC VISIT TRACKING (12 MO.) 11/05/2021 08:33 [facility] TYPE: Emergency COMPLAINT: - ABDOMINAL PAIN, BACK PAIN 08/16/2021 13:23 [facility] TYPE: Emergency COMPLAINT: - ABDOMINAL PAIN 08/16/2021 06:33 [facility] TYPE: Emergency COMPLAINT: - ABDOMINAL PAIN DIAGNOSES: - Hypothyroidism, unspecified - Acute pancreatitis without necrosis or infection, unspecified - Other intermodal customer service (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 - Allergy status to narcotic agent - watermelon inspector (current) use of systemic steroids - Upper abdominal pain, unspecified - Unspecified asthma, uncomplicated - Allergy status to analgesic agent - Acquired absence of other specified parts of digestive tract 08/11/2021 11:28 [facility] [place] TYPE: Emergency COMPLAINT: - STOMACH ISSUE DIAGNOSES: - Upper abdominal pain, unspecified - Crohn's disease, unspecified, without complications - Hypothyroidism, unspecified - Personal history of nicotine dependence - Other intermodal customer service (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 - Allergy status to [...] home (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 - Hypothyroidism, unspecified INPATIENT VISIT TRACKING (12 MO.) 08/16/2021 15:[address] [facility] [place] TYPE: Medical Surgical COMPLAINT: - CROHNS EXACERBATION DIAGNOSES: - watermelon inspector (current) use of systemic steroids - Hypothyroidism, unspecified - Other care home (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 - Other intermodal customer service (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 - Hypothyroidism, unspecified - Crohn's disease of large intestine without complications - Crohn's disease of large intestine without complications - FDC (current) use of systemic steroids - Allergy status to analgesic agent - Allergy status to analgesic agent - Crohn's disease of large intestine with unspecified complications [email or web address]
[2021-11-05] MEDS ORDERED: PREDNISONE20 MG PO (11:06)
== END 2021-11-05 11:26 | disposition home or self-care (01) ==
LOC: ED 08:33
DX: K50.90 Crohn's disease, unspecified, without complications (principal); J45.909 Unspecified asthma, uncomplicated; E03.9 Hypothyroidism, unspecified; G25.81 Restless legs syndrome; Z87.891 Personal history of nicotine dependence; Z88.5 Allergy status to narcotic agent; Z79.899 Other long term (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
CPT/HCPCS: 36415; 80053; 81001; 83605; 83690; 85025; 85651; 86140; 96374; 96375; 99284-25; J1170; J3010; J7030

== ENCOUNTER 2021-11-11 07:38 | Emergency (ER) | payer OTHER ==
[~2021-11-11] VITALS: Ht 157.5 cm; Wt 55.3 kg
--- OUTSIDE RECORDS SUMMARY | 2021-11-11 07:46 | XMS ---
PreManage Notification: JOSIE BANGURA Security Weblogic Developer Events 2 event(s) in the past 18 months Most recent security events: Elopement at [facility] 08/16/2021 06:33 - Other Details: PATIENT LEFT AMA Elopement at [facility] 08/16/2021 06:33 - Other Details: PATIENT LEFT AMA CRITERIA MET - [facility] - 2 Visits in 30 Days - Group Notification - 6 ED Visits in 6 Months CARE PROVIDERS Stefan Mcmillan [facility] Current DO PHONE: [phone] NISHA VARGHESE Physician Metal Products Viewer Current PHONE: Unknown STIVEN SIBLEY Physician Metal Products Viewer 09/05/2019-Current PHONE: [phone] MARQUEZ MAI [facility] Medicine: Geriatric Medicine Current PHONE: Unknown Care Guidelines exist for the following facilities: [facility] ( 02/06/2020 ) Care History Substance Use/Overdose 02/16/2018 [facility] USE CAUTION WITH NARCOTICS . PATIENT THREATENED [...] TO ED. E.D. VISIT COUNT (12 MO.) 6 [facility] TOTAL 6 NOTE: Visits indicate total known visits. ED/UCC VISIT TRACKING (12 MO.) 11/11/2021 07:39 [facility] TYPE: Emergency COMPLAINT: - SWOLLEN R KNEE 11/05/2021 08:33 [facility] TYPE: Emergency COMPLAINT: - ABDOMINAL PAIN, BACK PAIN DIAGNOSES: - Personal history of nicotine dependence - Allergy status to narcotic agent - Unspecified asthma, uncomplicated - Other terminal supervisor (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 - Hypothyroidism, unspecified - Unspecified abdominal pain - Crohn's disease, unspecified, without complications - Restless legs syndrome 08/16/2021 13:23 [facility] TYPE: Emergency COMPLAINT: - ABDOMINAL PAIN 08/16/2021 06:33 [facility] TYPE: Emergency COMPLAINT: - ABDOMINAL PAIN DIAGNOSES: - Hypothyroidism, unspecified - Acute pancreatitis without necrosis or infection, unspecified - Other terminal supervisor (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 - Allergy status to narcotic agent - termination clerk (current) use of systemic steroids - Upper [...] Personal history of nicotine dependence - Other terminal supervisor (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 - Allergy status to [...] Allergy status to analgesic agent - Other terminal supervisor (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 - Hypothyroidism, unspecified INPATIENT VISIT TRACKING (12 MO.) 08/16/2021 15:[address] [facility] [place] TYPE: Medical Surgical COMPLAINT: - CROHNS EXACERBATION DIAGNOSES: - custodial (current) use of systemic steroids - Hypothyroidism, unspecified - Other halfway (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 - Other halfway (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 - Hypothyroidism, unspecified - Crohn's disease of large intestine without complications - Crohn's disease of large intestine without complications - custodial (current) use of systemic steroids - Allergy status to analgesic agent - Allergy status to analgesic agent - Crohn's disease of large intestine with unspecified complications [email or web address]
[2021-11-11] MEDS ORDERED: crutches (08:31)
[2021-11-12] MEDS ORDERED: OMEPRAZOLE20 MG PO (08:34)
[2021-11-12] MEDS ORDERED: PRAZOSIN HCL1 MG PO (08:34)
[2021-11-12] MEDS ORDERED: HYDROCODON-ACE1 EA10 PO (08:37)
== END 2021-11-11 08:42 | disposition home or self-care (01) ==
LOC: ED 07:38
DX: S83.91XA Sprain of unspecified site of right knee, initial encounter (principal); K50.90 Crohn's disease, unspecified, without complications; E03.9 Hypothyroidism, unspecified; J45.909 Unspecified asthma, uncomplicated; G25.81 Restless legs syndrome; Z87.891 Personal history of nicotine dependence; Z88.5 Allergy status to narcotic agent; Z79.52 Long term (current) use of systemic steroids; Z79.899 Other long term (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; Z88.6 Allergy status to analgesic agent; X50.9XXA Other and unspecified overexertion or strenuous movements or postures, initial encounter
CPT/HCPCS: 73560; 99283-25; A9270

== ENCOUNTER 2021-11-12 08:10 | Emergency (ER) | payer OTHER ==
[~2021-11-12] VITALS: Ht 157.5 cm; Wt 55.7 kg
[~2021-11-12 08:10] MED LIST changes: +crutches
--- OUTSIDE RECORDS SUMMARY | 2021-11-12 08:18 | XMS ---
PreManage Notification: JOSIE BANGURA Security Belt Maker Events 2 event(s) in the past 18 months Most recent security events: Elopement at [facility] 08/16/2021 06:33 - Other Details: PATIENT LEFT AMA Elopement at [facility] 08/16/2021 06:33 - Other Details: PATIENT LEFT AMA CRITERIA MET - [facility] - 2 Visits in 30 Days - 6 ED Visits in 6 Months - Group Notification CARE PROVIDERS Stefan Mcmillan [facility] DO PHONE: [phone] NISHA VARGHESE Physician Stone Lathe Operator Current PHONE: Unknown STIVEN SIBLEY Physician Stone Lathe Operator 09/05/2019-Current PHONE: [phone] MARQUEZ MAI [facility] Medicine: Geriatric Medicine Current PHONE: Unknown Care Guidelines exist for the following facilities: [facility] ( 02/06/2020 ) Care History Substance Use/Overdose 02/16/2018 [facility] USE CAUTION WITH NARCOTICS . [...] TO ED. E.D. VISIT COUNT (12 MO.) [address] [place] [address] TOTAL 7 NOTE: Visits indicate total known visits. ED/UCC VISIT TRACKING (12 MO.) 11/12/2021 08:10 [facility] TYPE: Emergency COMPLAINT: - R KNEE PAIN 11/11/2021 07:39 [facility] TYPE: Emergency COMPLAINT: - SWOLLEN R KNEE 11/05/2021 08:33 [facility] TYPE: Emergency COMPLAINT: - ABDOMINAL PAIN, BACK PAIN DIAGNOSES: - Personal history of nicotine dependence - Allergy status to narcotic agent - Unspecified asthma, uncomplicated - Other fdc (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 - Hypothyroidism, unspecified - Unspecified abdominal pain - Crohn's disease, unspecified, without complications - Restless legs syndrome 08/16/2021 13:23 [facility] TYPE: Emergency COMPLAINT: - ABDOMINAL PAIN 08/16/2021 06:33 [facility] TYPE: Emergency COMPLAINT: - ABDOMINAL PAIN DIAGNOSES: - Hypothyroidism, unspecified - Acute pancreatitis without necrosis or infection, unspecified - Other fdc (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 - Allergy status to narcotic agent - intermediate (current) use of systemic steroids - Upper [...] Personal history of nicotine dependence - Other fdc (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 - Allergy status to [...] Allergy status to analgesic agent - Other superintendent terminal (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 - Hypothyroidism, unspecified INPATIENT VISIT TRACKING (12 MO.) 08/16/2021 15:14 [facility] TYPE: Medical Surgical COMPLAINT: - CROHNS EXACERBATION DIAGNOSES: - intermediate (current) use of systemic steroids - Hypothyroidism, unspecified - Other fdc (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 - Other superintendent terminal (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 - Hypothyroidism, unspecified - Crohn's disease of large intestine without complications - Crohn's disease of large intestine without complications - exterminator (current) use of systemic steroids - Allergy status to analgesic agent - Allergy status to analgesic agent - Crohn's disease of large intestine with unspecified complications [email or web address]
[2021-11-12] MEDS ORDERED: PRAZOSIN HCL1 MG PO (08:34)
[2021-11-12] MEDS ORDERED: OMEPRAZOLE20 MG PO (08:34)
[2021-11-12] MEDS ORDERED: HYDROCODON-ACE1 EA10 PO (08:37)
== END 2021-11-12 08:46 | disposition home or self-care (01) ==
LOC: ED 08:10
DX: S83.91XA Sprain of unspecified site of right knee, initial encounter (principal); M25.061 Hemarthrosis, right knee; K50.90 Crohn's disease, unspecified, without complications; E03.9 Hypothyroidism, unspecified; J45.909 Unspecified asthma, uncomplicated; G25.81 Restless legs syndrome; Z87.891 Personal history of nicotine dependence; Z88.5 Allergy status to narcotic agent; Z88.6 Allergy status to analgesic agent; Z79.52 Long term (current) use of systemic steroids; Z79.899 Other long term (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; X50.9XXA Other and unspecified overexertion or strenuous movements or postures, initial encounter
CPT/HCPCS: 99283

== ENCOUNTER 2022-04-08 08:29 | Emergency (ER) | payer OTHER ==
[~2022-04-08] VITALS: Ht 157.5 cm; Wt 55.7 kg
[~2022-04-08 08:29] MED LIST changes: +HYDROCODON-ACE1 EA10 PO
--- OUTSIDE RECORDS SUMMARY | 2022-04-08 08:32 | XMS ---
PreManage Notification: JOSIE BANGURA Security Director Of Counseling Events 2 event(s) in the past 18 months Most recent security events: Elopement at [facility] 08/16/2021 06:33 - Other Details: PATIENT LEFT AMA Elopement at [facility] 08/16/2021 06:33 - Other Details: PATIENT LEFT AMA CRITERIA MET - Group Notification - [facility] CARE PROVIDERS Stefan Mcmillan [facility] Current DO PHONE: [phone] NISHA VARGHESE Physician Resident Services Manager Current PHONE: Unknown STIVEN SIBLEY Physician Resident Services Manager 09/05/2019-Current PHONE: [phone] MARQUEZ MAI Family Medicine: Geriatric Medicine Current PHONE: Unknown Care Guidelines exist for the following facilities: [facility] ( 02/06/2020 ) Care History Substance Use/Overdose 02/16/2018 [facility] USE CAUTION WITH NARCOTICS . [...] TO ED. E.D. VISIT COUNT (12 MO.) 8 [facility]. TOTAL 8 NOTE: Visits indicate total known visits. 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 - Unspecified asthma, uncomplicated - Hemarthrosis, right knee - Pain in right knee - Other and unspecified overexertion or strenuous movements or postures, initial encounter - Restless legs syndrome - Allergy status to analgesic agent - Allergy status to narcotic agent - Sprain of unspecified site of right knee, initial encounter - Crohn's disease, unspecified, without complications - Personal history of nicotine dependence - Hypothyroidism, unspecified - 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 (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 11/11/2021 07:39 [facility] TYPE: Emergency COMPLAINT: - SWOLLEN R KNEE DIAGNOSES: - Pain in right knee - Hypothyroidism, unspecified - Other usp (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 - Unspecified asthma, uncomplicated - Allergy status to analgesic agent - Restless legs syndrome - Personal history of nicotine dependence - bag inspector (current) use of systemic steroids - Crohn's disease, unspecified, without complications - Sprain of unspecified site of right knee, initial encounter - Other and unspecified overexertion or strenuous movements or postures, initial encounter - Allergy status to narcotic agent 11/05/2021 08:33 [facility] TYPE: Emergency COMPLAINT: - ABDOMINAL PAIN, BACK PAIN DIAGNOSES: - Personal history of nicotine dependence - Allergy status to narcotic agent - Unspecified asthma, uncomplicated - Other usp (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 - Hypothyroidism, unspecified - Unspecified abdominal pain - Crohn's disease, unspecified, without complications - Restless legs syndrome 08/16/2021 13:23 [facility] TYPE: Emergency COMPLAINT: - ABDOMINAL PAIN 08/16/2021 06:33 [facility] TYPE: Emergency COMPLAINT: - ABDOMINAL PAIN DIAGNOSES: - Hypothyroidism, unspecified - Acute pancreatitis without necrosis or infection, unspecified - Other usp (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 - Allergy status to narcotic agent - shelter (current) use of systemic steroids - Upper [...] Personal history of nicotine dependence - 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
[2022-04-08] MEDS ORDERED: PROTONIX40 MG PO (12:22)
[2022-04-08] MEDS ORDERED: ONDANSETRON ODT4 MG PO (12:23)
[2022-04-08] MEDS ORDERED: PREDNISONE20 MG PO (12:37)
== END 2022-04-08 12:52 | disposition home or self-care (01) ==
LOC: ED 08:29
DX: K50.90 Crohn's disease, unspecified, without complications (principal); E03.9 Hypothyroidism, unspecified; J45.909 Unspecified asthma, uncomplicated; Z87.891 Personal history of nicotine dependence; Z88.5 Allergy status to narcotic agent; Z88.6 Allergy status to analgesic agent; Z79.899 Other long term (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
CPT/HCPCS: 36415; 80053; 81001; 83690; 85025; 96374; 96375; 99284-25; J1200; J1790; J2405; J7030

== ENCOUNTER 2022-11-02 07:43 | Emergency (ER) | payer OTHER ==
[~2022-11-02] VITALS: Ht 157.5 cm; Wt 55.7 kg
[~2022-11-02 07:43] MED LIST changes: +PROTONIX40 MG PO
--- OUTSIDE RECORDS SUMMARY | 2022-11-02 07:46 | XMS ---
PreManage Notification: JOSIE BANGURA Security Black Ash Burner Operator Events 2 event(s) in the past 18 months Most recent security events: Elopement at [facility] 08/16/2021 06:33 - Other Details: PATIENT LEFT AMA Elopement at [facility] 08/16/2021 06:33 - Other Details: PATIENT LEFT AMA CRITERIA MET - Group Notification CARE PROVIDERS Stefan [facility] Current DO PHONE: [phone] NISHA VARGHESE Physician Verification Manager Current PHONE: Unknown STIVEN SIBLEY Physician Verification Manager 09/05/2019-Current PHONE: [phone] MARQUEZ MAI Family Medicine: Geriatric Medicine Current PHONE: Unknown Care Guidelines exist for the following facilities: [facility] ( 02/06/2020 ) Care History Substance Use/Overdose 02/16/2018 [facility] USE CAUTION WITH NARCOTICS . PATIENT [...] ED. EEdwigeD. VISIT COUNT (12 MO.) 5 [facility]. TOTAL 5 NOTE: Visits indicate total known visits. ED/UCC VISIT TRACKING (12 MO.) 11/02/2022 07:44 [facility] TYPE: Emergency COMPLAINT: - SWOLLEN/WOUND L RING FINGER 04/08/2022 08:29 [facility] TYPE: Emergency COMPLAINT: - ABD PAIN, VOMITING DIAGNOSES: - Allergy status to analgesic agent - Hypothyroidism, unspecified - Crohn's disease, unspecified, without complications - Personal history of nicotine dependence - Epigastric pain - Unspecified asthma, uncomplicated - Other long term care phlebotomist (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 - Allergy status to narcotic agent 11/12/2021 08:10 [facility] TYPE: Emergency COMPLAINT: - R KNEE PAIN DIAGNOSES: - Crohn's disease, unspecified, without complications - nursing home (current) use of systemic steroids - Allergy status to narcotic agent - Restless legs syndrome - Other long term care phlebotomist (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 - Pain in right knee - Personal history of nicotine dependence - Unspecified asthma, uncomplicated - Sprain of unspecified site of right knee, initial encounter - Allergy status to analgesic agent - Other and unspecified overexertion or strenuous movements or postures, initial encounter - Hypothyroidism, unspecified - Hemarthrosis, right knee 11/11/2021 07:39 [facility] TYPE: Emergency COMPLAINT: - SWOLLEN R KNEE DIAGNOSES: - Sprain of unspecified site of right knee, initial encounter - Pain in right knee - nursing home (current) use of systemic steroids - Restless legs syndrome - Unspecified asthma, uncomplicated - Other and unspecified overexertion or strenuous movements or postures, initial encounter - Hypothyroidism, unspecified - Crohn's disease, unspecified, without complications - Personal history of nicotine dependence - Allergy status to analgesic agent - Allergy status to narcotic agent - Other usp (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 11/05/2021 08:33 [facility] TYPE: Emergency COMPLAINT: - ABDOMINAL PAIN, BACK PAIN DIAGNOSES: - Personal history of nicotine dependence - Restless legs syndrome - Unspecified abdominal pain - Other long term care phlebotomist (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 - Allergy status to narcotic agent - Crohn's disease, unspecified, without complications - Hypothyroidism, unspecified - Unspecified asthma, uncomplicated INPATIENT VISIT TRACKING (12 MO.) No inpatient visits to display in this time frame [email or web address]
[2022-11-02] MEDS ORDERED: CEPHALEXIN500 M1 PO (08:03)
== END 2022-11-02 08:23 | disposition home or self-care (01) ==
LOC: ED 07:43
PROC: 0H9GXZZ Drainage of Left Hand Skin, External Approach (ICD-10-PCS; principal; 2022-11-02)
DX: L03.012 Cellulitis of left finger (principal); E03.9 Hypothyroidism, unspecified; J45.909 Unspecified asthma, uncomplicated; Z87.891 Personal history of nicotine dependence; Z88.5 Allergy status to narcotic agent; Z79.899 Other long term (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
CPT/HCPCS: 10060; 99283-25; A9270

== ENCOUNTER 2022-12-30 00:52 | Emergency (ER) | payer OTHER ==
[~2022-12-30] VITALS: Ht 157.5 cm; Wt 59.7 kg
[~2022-12-30 00:52] MED LIST changes: +CEPHALEXIN500 M1 PO
--- OUTSIDE RECORDS SUMMARY | 2022-12-30 01:01 | XMS ---
PreManage Notification: JOSIE BANGURA Security Slide Fasteners Inspector Events 2 event(s) in the past 18 months Most recent security events: Elopement at [facility] 08/16/2021 06:33 - Other Details: PATIENT LEFT AMA Elopement at [facility] 08/16/2021 06:33 - Other Details: PATIENT LEFT AMA CRITERIA MET - Group Notification CARE PROVIDERS -, [facility]- Dentist: [facility] PHONE: [phone] Stefan Mcmillan [facility] Current DO PHONE: [phone] NISHA VARGHESE Current PHONE: Unknown STIVEN SIBLEY Physician Nuclear Medicine Medical Director 09/05/2019-Current PHONE: [phone] MARQUEZ MAI [facility] Medicine: Geriatric Medicine Current PHONE: Unknown Care Guidelines exist for the following facilities: [facility] [place] ( 02/06/2020 ) Care History Substance Use/Overdose 02/16/2018 [facility] USE CAUTION WITH NARCOTICS . PATIENT [...] ED. E.D. VISIT COUNT (12 MO.) 3 [facility] TOTAL 3 NOTE: Visits indicate total known visits. ED/UCC VISIT TRACKING (12 MO.) 12/30/2022 00:53 [facility] TYPE: Emergency COMPLAINT: - RT SIDE DENTAL PAIN 11/02/2022 07:44 [facility] TYPE: Emergency COMPLAINT: - SWOLLEN/WOUND L RING FINGER DIAGNOSES: - Allergy status to narcotic agent - Personal history of nicotine dependence - Localized swelling, mass and lump, right upper limb - Cellulitis of left finger - Unspecified asthma, uncomplicated - Hypothyroidism, unspecified - Other halfway (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 04/08/2022 08:[address] [facility] [place] TYPE: Emergency COMPLAINT: - ABD PAIN, VOMITING DIAGNOSES: - Other halfway (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 - Allergy status to narcotic agent - Allergy status to analgesic agent - Hypothyroidism, unspecified - Crohn's disease, unspecified, without complications - Personal history of nicotine dependence - Epigastric pain - Unspecified asthma, uncomplicated INPATIENT VISIT TRACKING (12 MO.) No inpatient visits to display in this time frame [email or web address]
== END 2022-12-30 01:23 | disposition left against medical advice (07) ==
LOC: ED 00:52
DX: K02.9 Dental caries, unspecified (principal); E03.9 Hypothyroidism, unspecified; J45.909 Unspecified asthma, uncomplicated; Z87.891 Personal history of nicotine dependence; Z88.5 Allergy status to narcotic agent; Z88.6 Allergy status to analgesic agent; Z79.899 Other long term (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
CPT/HCPCS: 99282

== ENCOUNTER 2024-10-22 07:05 | Emergency (ER) | payer OTHER ==
[~2024-10-22] VITALS: Ht 157.5 cm; Wt 56.7 kg
[~2024-10-22 07:05] MED LIST changes: +LISINOPRIL10 MG PO
[2024-10-22] MEDS ORDERED: LEVOTHYROXINE137 MCG PO (07:15)
[2024-10-22] MEDS ORDERED: BETAMETHASONE D15 G3 TOP (07:15)
[2024-10-22] MEDS ORDERED: CETIRIZINE HCL10 MG PO (07:15)
[2024-10-22] MEDS ORDERED: PENICILLIN V P500 MG PO (07:23)
[2024-10-22] MEDS ORDERED: HYDROCODON-ACE1 EA11 PO (07:23)
[2024-10-22] MEDS ORDERED: PENICILLIN V POTASSIUM 500 MG TAB PO ONE (07:30)
[2024-10-22] MEDS ORDERED: HYDROCODONE/ACETA 7.5/325 TAB PO ONE (07:30)
[2024-10-22] MEDS ORDERED: IBUPROFEN 600 MG TAB PO ONE (07:30)
[2024-10-22 07:45] VITALS: BP 171/100
== END 2024-10-22 07:45 | disposition home or self-care (01) ==
LOC: ED 07:05
DX: K04.7 Periapical abscess without sinus (principal); K50.90 Crohn's disease, unspecified, without complications; E03.9 Hypothyroidism, unspecified; J45.909 Unspecified asthma, uncomplicated; G25.81 Restless legs syndrome; Z87.891 Personal history of nicotine dependence; Z88.5 Allergy status to narcotic agent; Z88.6 Allergy status to analgesic agent; Z79.890 Hormone replacement therapy; Z79.899 Other long term (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
CPT/HCPCS: 41800; 99283-25; A9270

== ENCOUNTER 2024-12-15 09:18 | Emergency (ER) | payer OTHER ==
[~2024-12-15] VITALS: Ht 157.5 cm; Wt 58.8 kg
[~2024-12-15 09:18] MED LIST changes: +BETAMETHASONE D15 G3 TOP; +CETIRIZINE HCL10 MG PO; +LEVOTHYROXINE137 MCG PO; +PENICILLIN V P500 MG PO
[2024-12-15] MEDS ORDERED: LOSARTAN POTAS100 MG PO (09:36)
[2024-12-15] MEDS ORDERED: ondansetron HCL 4 MG/2 ML VIAL IV ONE ×2 (09:45→10:15)
[2024-12-15 10:02] LABS: BASOPHILS 0.8 % (0-2); EOSINOPHILS 1.8 % (0-6); HEMATOCRIT 45.9 % (35.0-50.0); HEMOGLOBIN 15.7 g/dL (12.0-18.0); MCH 33.2 (27-36); MCHC 34.2 g/dl (30-36); MONOCYTES 5.6 % (0-12); NEUTROPHILS 73.8 % (39-80); PLATELET COUNT 404 K/uL (140-440); RBC 4.73 M/ul (4.3-5.7); RDW 13.3 (10.5-15.0)
[2024-12-15] MEDS ORDERED: HYDROmorphone HCL 1 MG/ML SYR IV PRN (10:15)
[2024-12-15] MEDS ORDERED: SODIUM CHLORIDE 0.9% 1,000 ML IV PRN (10:15)
[2024-12-15 10:17] LABS: ALBUMIN 3.5 g/dL (3.4-5.0); ALBUMIN/GLOBULIN RATIO 1.09 (1.1-2.4); ANION GAP 12.3 (7-21); BILIRUBIN, TOTAL 0.2 mg/dL (0.2-1.0); BUN/CREATININE RATIO 15.9 (6.0-28.6); CALCIUM 9.3 mg/dL (8.5-10.1); CREATININE, SERUM 0.88 mg/dL (0.70-1.30); POTASSIUM 4.3 mmol/L (3.5-5.1); PROTEIN, TOTAL 6.7 g/dL (6.4-8.2)
[2024-12-15 12:40] VITALS: BP 132/94
== END 2024-12-15 12:40 | disposition left against medical advice (07) ==
LOC: ED 09:18
PROVIDERS: Emergency Medicine
DX: K85.90 Acute pancreatitis without necrosis or infection, unspecified (principal); K50.90 Crohn's disease, unspecified, without complications; E03.9 Hypothyroidism, unspecified; J45.909 Unspecified asthma, uncomplicated; Z53.29 Procedure and treatment not carried out because of patient's decision for other reasons; Z87.891 Personal history of nicotine dependence; Z88.6 Allergy status to analgesic agent; Z88.5 Allergy status to narcotic agent; Z79.890 Hormone replacement therapy; Z79.899 Other long term (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
CPT/HCPCS: 36415; 80053; 83690; 85025; 96361; 96374; 96375; 96376; 99284-25; J1171; J2405; J7030

== ENCOUNTER 2025-04-04 12:17 | Emergency (ER) | payer OTHER ==
[~2025-04-04] VITALS: Ht 157.5 cm; Wt 55.0 kg
[~2025-04-04 12:17] MED LIST changes: +LOSARTAN POTAS100 MG PO
[2025-04-04 13:04] LABS: BASOPHILS 0.4 % (0.2-1.2); EOSINOPHILS 0.8 % (0.8-7.0); LYMPHOCYTES 20.0 % (21.8-53.1); MCH 33.0 PG (25.7-32.2); MCHC 34.2 g/dL (32.3-36.5); MCV 96.5 fL (79.0-92.2); MONOCYTES 4.6 % (5.3-12.2); NEUTROPHILS 73.9 % (34.0-67.9); RBC 4.57 M/uL (4.63-6.08)
[2025-04-04 13:19] LABS: ALT (SGPT) 31.0 U/L (14-59); AST (SGOT) 21.0 U/L (15-37); GLOMERULAR FILTRATION RATE,EST 84.0 mL/min (>60); PROTEIN, TOTAL 6.4 g/dL (6.4-8.2); UREA NITROGEN 12.0 mg/dL (7-18)
[2025-04-04] MEDS ORDERED: ORTIKOS9 MG PO (15:26)
[2025-04-04] MEDS ORDERED: PEPCID20 MG PO (15:26)
[2025-04-04 15:37] VITALS: BP 129/79
== END 2025-04-04 15:37 | disposition home or self-care (01) ==
LOC: ED 12:17
PROVIDERS: Emergency Medicine
DX: R10.13 Epigastric pain (principal); E03.9 Hypothyroidism, unspecified; J45.909 Unspecified asthma, uncomplicated; Z79.899 Other long term (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; Z88.5 Allergy status to narcotic agent; Z87.891 Personal history of nicotine dependence
CPT/HCPCS: 36415; 74177; 80053; 83690; 85025; 99284-25; Q9967

== ENCOUNTER 2025-06-01 06:33 | Day surgery (SDC) | payer OTHER ==
[~2025-06-01] VITALS: Ht 157.5 cm; Wt 57.0 kg
[~2025-06-01 06:33] MED LIST changes: +LACTATED RINGER'S 1,000 ML IV SCH; +ORTIKOS9 MG PO; +PEPCID20 MG PO; +TAMSULOSIN HCL0.4 MG PO
[2025-06-01 06:48] VITALS: BP 140/93
[2025-06-01] MEDS ORDERED: LIDOCAINE HCL 1% 5 ML SDV INJ ONE (07:00)
[2025-06-01] MEDS ORDERED: IBLOOD GLUCOSE TEST STRIP 1 EA TEST VI PRN (07:00)
--- NOTE | 2025-06-01 08:18 | NUR ---
VISITED DURING SPIRITUAL CARE ROUNDS. PT APPEARED TO BE SLEEPING. DID NOT DISTURB. PROVIDED PRAYER.
[2025-06-01] MEDS ORDERED: LIDOCAINE HCL 2% 5 ML SDV ONE (08:35)
[2025-06-01] MEDS ORDERED: LIDOCAINE 1% W/ EPI 1:100,000 20 ML MDV ONE (09:24)
[2025-06-01 15:23] VITALS: BP 129/95
--- NOTE | 2025-06-01 15:32 | NUR ---
06/01/25 1532 Rufus,Jessica 0912 PT ARRIVED TO PACU ON 2L NC, PT ASLEEP AND RESP EVEN AND UNLABORED. VSS, SMALL AMOUNT OF SNORING NOTED. 0950 PT WOKE TO TACTILE STIMULI AND O2 REMOVED, PT ROLLED TO PRONE AND MOANING OFF AND ON. "I HATE MY GUTS." PT ASKING TO USE THE BATHROOM. PT GRIMCING. RN HELPS PT ROLL TO SIDE AND IS ENCOURAGE TO PASS GAS NEEDED. 1010 PT UP TO EDGE OF BED AND PT DENIES CONCERNS. PT UP TO BATHROOM AND STEADY ON HIS FEET. SAMLL AMOUNT OF DRAINAGE NOTED ON BED.
--- NOTE | 2025-06-05 20:38 | PATH ---
[facility] [address], [place] [address] Signed SPECIMEN(S): A COLON BIOPSY AT 25-15 CM SPECIMEN(S): B COLON BIOPSY AT 20 CM SPECIMEN(S): C RECTUM SPECIMEN(S): D ANTRUM/PYLORUS BIOPSY SPECIMEN(S): E DUODENUM BIOPSY SPECIMEN(S): F DUODENUM BIOPSY SPECIMEN(S): G GE JUNCTION SPECIMEN SOURCE: A. COLON BIOPSY AT 25-15 CM B. COLON BIOPSY AT 20 CM C. RECTUM D. ANTRUM/PYLORUS BIOPSY E. DUODENUM BIOPSY F. DUODENUM BIOPSY G. GE JUNCTION CLINICAL HISTORY: [id number], family history of colon CA. Postop-lower poor prep, Crohn's upper-hiatal hernia A-C) biopsy, D) biopsy prepyloric linear ulceration, E) jejunal biopsy, F/G) biopsy FINAL PATHOLOGIC DIAGNOSIS: A. Colon, 25-15 cm, biopsy: - Colonic mucosa with normal glandular architecture. - Negative for acute, chronic, and granulomatous inflammation with normal subepithelial collagen layer. - Negative for dysplasia and malignancy. B. Colon, 20 cm, biopsy: - Ulcer with acute cryptitis and acute crypt abscesses, partially involving 1 of 2 pieces. - Colonic mucosa with normal glandular architecture and no inflammation (1 of 2 pieces). - Negative for granulomas, dysplasia, and malignancy. C. Rectum, biopsy: - Colonic mucosa with normal glandular architecture. - Negative for acute, chronic, and granulomatous inflammation with normal subepithelial collagen layer. - Negative for dysplasia and malignancy. D. Stomach, antrum/pylorus, biopsy: PATIENT NAME: JOSIE BANGURA PATHOLOGY DATE OF : 68 REPORT #: [id number] PHYSICIAN: JOSÉ PATHOLOGY PCP: LULÚ BEAVERS MD REPORT IS CONFIDENTIAL AND NOT TO BE RELEASED WITHOUT AUTHORIZATION [facility] [address], [place] [address] Signed - Antral and pyloric-type gastric mucosa. - No ulceration or significant inflammation identified. - No H. pylori-like organisms identified on routine HE-stained histologic sections. - Negative for intestinal metaplasia, dysplasia, and malignancy. E. Duodenum, biopsy: - Duodenal mucosa with normal villous architecture. - Negative for acute, chronic, and granulomatous inflammation. - Negative for dysplasia and malignancy. F. Duodenum, biopsy: - Duodenal mucosa with no villous abnormality identified. - Cal's glands are present. - Negative for acute, chronic, and granulomatous inflammation. - Negative for dysplasia and malignancy. G. Gastroesophageal junction, biopsy: - Gastroesophageal junctional-type mucosa. - No acute, chronic, or eosinophilic inflammation identified. - Negative for intestinal metaplasia, dysplasia, and malignancy. COMMENT: In the correct clinical setting, the changes identified in Specimen B are compatible with a diagnosis of Crohn's disease. However, inflammation related to diverticuli, or infectious colitis could show similar features. Correlation with the endoscopic examination results will be necessary. SDL MICROSCOPIC EXAMINATION: Histologic sections of all submitted blocks are examined by light microscopy. These findings, together with the gross examination, support the pathologic diagnosis. GROSS DESCRIPTION: A. The specimen, labeled and designated "Newton, colon biopsy at 25 to 15 cm," is received in formalin and consists of five owens soft tissue fragments, ranging from 0.2-0.3 cm. Entirely submitted in (A1). B. The specimen, labeled and designated "Newton, colon biopsy at 20 cm," is received in formalin and consists of two owens soft tissue fragments, ranging from 0.2-0.3 cm. Entirely submitted in (B1). C. The specimen, labeled and designated "Newton, rectum," is received in PATIENT NAME: JOSIE BANGURA PATHOLOGY DATE OF : 68 REPORT #: [id number] PHYSICIAN: JOSÉ MELISSA PCP: LULÚ BEAVERS MD REPORT IS CONFIDENTIAL AND NOT TO BE RELEASED WITHOUT AUTHORIZATION [facility] [address], [place] [address] Signed formalin and consists of three owens soft tissue fragments, ranging from 0.1-0.4 cm. Entirely submitted in (C1). D. The specimen, labeled and designated "Newton, antrum/pylorus biopsy," is received in formalin and consists of two owens soft tissue fragments, ranging from 0.3-0.4 cm. Entirely submitted in (D1). E. The specimen, labeled and designated "Newton, duodenum biopsy," is received in formalin and consists of four owens soft tissue fragments, ranging from 0.2-0.3 cm. Entirely submitted in (E1). F. The specimen, labeled and designated "Newton, duodenum biopsy #2," is received in formalin and consists of two owens soft tissue fragments, ranging from 0.2-0.3 cm. Entirely submitted in (F1). G. The specimen, labeled and designated "Newton GE arthur," is received in formalin and consists of two owens soft tissue fragments, ranging from 0.2-0.5 cm. Entirely submitted in (G1). AB (under the direct supervision of a pathologist) The Gross Description was prepared using a voice recognition system. The report was reviewed for accuracy; however, sound-alike word errors, addition and/or deletions may occur. If there are any questions about this report, please contact Client Services. ADDITIONAL NOTES: Immunohistochemical and/or in situ hybridization studies if performed in this case included appropriate positive controls that reacted as expected. This test was developed and its performance characteristics determined by [facility]. It has not been cleared or approved by the U.S. Food and Drug Administration. The FDA has determined that such clearance or approval is not necessary. This test is used for clinical purposes. It should not be regarded as investigational or for research. [facility] is certified under the Clinical Laboratory Improvement Amendments of 1988 (CLIA) as qualified to perform high complexity clinical laboratory testing. PERFORMING LABORATORY: Technical component was performed by [facility], [address] [place] [id number] (CLIA# [id number]). Professional interpretation was performed by [facility], [address] [place] [id number] (CLIA#: [id number]). Diagnostician: Tigist Deal MD PATIENT NAME: JOSIE BANGURA PATHOLOGY DATE OF : 68 REPORT #: [id number] PHYSICIAN: [facility] PCP: LULÚ BEAVERS MD REPORT IS CONFIDENTIAL AND NOT TO BE RELEASED WITHOUT AUTHORIZATION [place] [address] Signed Pathologist Electronically Signed 06/05/2025 Copies: ~ PATIENT NAME: JOSIE BANGURA [facility] DATE OF : 68 REPORT #: [id number] PHYSICIAN: JOSÉ PATHOLOGY PCP: LULÚ BEAVERS MD REPORT IS CONFIDENTIAL AND NOT TO BE RELEASED WITHOUT AUTHORIZATION
== END 2025-06-01 10:27 | disposition home or self-care (01) ==
LOC: DS 06:33
PROVIDERS: ATTEND Surgery
PROC: 0DB98ZX Excision of Duodenum, Via Natural or Artificial Opening Endoscopic, Diagnostic (ICD-10-PCS; 2025-06-01)
PROC: 0DB78ZX Excision of Stomach, Pylorus, Via Natural or Artificial Opening Endoscopic, Diagnostic (ICD-10-PCS; 2025-06-01)
PROC: 0DBA8ZX Excision of Jejunum, Via Natural or Artificial Opening Endoscopic, Diagnostic (ICD-10-PCS; 2025-06-01)
PROC: 0DBP8ZX Excision of Rectum, Via Natural or Artificial Opening Endoscopic, Diagnostic (ICD-10-PCS; principal; 2025-06-01 08:45)
PROC: 0DBN8ZX Excision of Sigmoid Colon, Via Natural or Artificial Opening Endoscopic, Diagnostic (ICD-10-PCS; 2025-06-01 08:45)
DX: K50.10 Crohn's disease of large intestine without complications (principal); K63.89 Other specified diseases of intestine; K62.89 Other specified diseases of anus and rectum; K63.0 Abscess of intestine; E03.9 Hypothyroidism, unspecified; J45.909 Unspecified asthma, uncomplicated; I10 Essential (primary) hypertension; Z79.890 Hormone replacement therapy; Z79.899 Other long term (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; Z88.5 Allergy status to narcotic agent; Z90.49 Acquired absence of other specified parts of digestive tract
CPT/HCPCS: 00813; 88305; J2003; J2704; J7121

== ENCOUNTER 2025-07-18 04:12 | Emergency (ER) | payer OTHER ==
[~2025-07-18] VITALS: Ht 157.5 cm; Wt 60.0 kg
--- OUTSIDE RECORDS SUMMARY | ~2025-07-18 | XMS | Continuity of Care Document ---
Demographics + + + | Address | [address] | | | [place] [address] | + + + | Preferred Language | Unknown | + + + | Marital Status | Never | + + + | Methodist Affiliation | Unknown | + + + | Race | White | + + + | Ethnic Group | Not or | + + + Author + + + | Author | [facility] | + + + | Organization | [facility] | + + + | Address | [address] | | | [place] [address] | + + + | Phone | | + + + Care Team Providers + + + + | Care Territory Sales Representative Name | Role | Phone | + + + + Unavailable | Unavailable | + + + + Unavailable | Unavailable | + + + + Allergies and Intolerances + + + + + + | date | description | facility | reaction | severity | + + + + + + | 2025-05-25 | Morphine | [facility] - | (no reaction) | Severe | | 00:00 | | [facility] | | | + + + + + + | 2025-05-25 | Morphine | [facility] - | (no reaction) | Severe | | 00:00 | | [facility] | [facility] | | | + + + + + + | 2025-05-25 | Morphine | [facility] - | (no reaction) | Severe | | 00:00 | | [facility] | | | | | | [facility] | | | + + + + + + Encounters No information. Functional Status No information. Immunizations No information. Medications + + + + | date | description | facility | + + + + | (no date) | ONDANSETRON | [facility] | | | | [facility] | + + + + | (no date) | OXYCODONE | [facility] | | | HCL/ACETAMINOPHEN | [facility] | + + + + | (no date) | NAPROXEN | [facility] | | | | [facility] | + + + + | (no date) | BUDESONIDE/FORMOTEROL | [facility] | | | FUMARATE | [facility] | + + + + | (no date) | MONTELUKAST SODIUM | [facility] | | | | [facility] | + + + + | (no date) | BETAMETHASONE DIPROPIONATE | [facility] | | | | [facility] | + + + + | (no date) | | [facility] | | | LISINOPRIL/HYDROCHLOROTHIAZ | [facility] | | | BERTHA | | + + + + | (no date) | OMEPRAZOLE | [facility] | | | | [facility] | + + + + | (no date) | predniSONE | [facility] | | | | [facility] | + + + + | (no date) | SULFASALAZINE | [facility] | | | | [facility] | + + + + | (no date) | MONTELUKAST SODIUM | [facility] | | | | [facility] | + + + + | (no date) | CITALOPRAM HYDROBROMIDE | [facility] | | | | [facility] | + + + + | (no date) | ONDANSETRON | [facility] | | | | [facility] | + + + + | (no date) | PRAZOSIN HCL | [facility] | | | | [facility] | + + + + | (no date) | predniSONE | [facility] | | | | [facility] | + + + + | (no date) | ROPINIROLE HCL | [facility] | | | | [facility] | + + + + | (no date) | Mesalamine | [facility] | | | | [facility] | + + + + | (no date) | MESALAMINE | [facility] | | | | [facility] | + + + + | (no date) | ALBUTEROL SULFATE MDI | [facility] | | | (HFA) | [facility] | + + + + | (no date) | HYDROCODONE | [facility] | | | BIT/ACETAMINOPHEN | [facility] | + + + + | (no date) | HYDROCODONE | [facility] | | | BIT/ACETAMINOPHEN | [facility] | + + + + | (no date) | TAMSULOSIN HCL | [facility] | | | | [facility] | + + + + | (no date) | METOPROLOL TARTRATE | [facility] | | | | [facility] | + + + + | (no date) | ONDANSETRON | [facility] | | | | [facility] | + + + + | (no date) | LEVOTHYROXINE SODIUM | [facility] | | | | [facility] | + + + + | (no date) | LEVOTHYROXINE SODIUM | [facility] | | | | [facility] | + + + + | (no date) | LEVOTHYROXINE SODIUM | [facility] | | | | [facility] | + + + + | (no date) | LEVOTHYROXINE SODIUM | [facility] | | | | [facility] | + + + + | (no date) | LEVOTHYROXINE SODIUM | [facility] | | | | [facility] | + + + + | (no date) | LOSARTAN POTASSIUM | [facility] | | | | [facility] | + + + + | (no date) | DICYCLOMINE HCL | [facility] | | | | [facility] | + + + + | (no date) | PROMETHAZINE HCL | [facility] | | | | [facility] | + + + + Problems No information. Procedures No information. Results/Labs No information. Social History +--------+ + + | date | description | facility | +--------+ + + Vital Signs + + + +---------+ | date | measurement | value | units | + + + +---------+ | 2025-05-25 00:00 | BMI | 23.0 | kg/m2 | + + + +---------+ | 2025-05-25 00:00 | height_metric | 157.48 | cm | + + + +---------+ | 2025-05-25 00:00 | height_standard | 62 | in | + + + +---------+ | 2025-05-25 00:00 | weight_metric | 57 | kg | + + + +---------+ | 2025-05-25 00:00 | weight_standard | 125.662 | lb | + + + +---------+ | 2025-06-01 00:00 | BP_diastolic | 81 | mmHg | + + + +---------+ | 2025-06-01 00:00 | BP_systolic | 113 | mmHg | + + + +---------+ | 2025-06-01 00:00 | heart_rate | 52 | /min | + + + +---------+ | 2025-06-01 00:00 | o2_saturation | 100 | % | + + + +---------+ | 2025-06-01 00:00 | respiration_rate | 15 | /min | + + + +---------+ | 2025-06-01 00:00 | | 97.2 | F | | | temperature_standar | | | | | d | | | + + + +---------+"
[~2025-07-18 04:12] MED LIST changes: -LACTATED RINGER'S 1,000 ML IV SCH
[2025-07-18] MEDS ORDERED: TRAMADOL HCL50 MG PO (04:25)
[2025-07-18] MEDS ORDERED: CEPHALEXIN500 M1 PO (04:25)
[2025-07-18] MEDS ORDERED: HYDROCODONE BIT/ACETAMINOPHEN 5/325 MG 1 TAB HOME.PACK PO ONE (04:30)
[2025-07-18] MEDS ORDERED: CEPHALEXIN MONOHYDRATE 500 MG HOME.PACK PO ONE (04:30)
[2025-07-18 04:49] VITALS: BP 194/118
== END 2025-07-18 04:51 | disposition home or self-care (01) ==
LOC: ED 04:12
DX: K08.89 Other specified disorders of teeth and supporting structures (principal); J45.909 Unspecified asthma, uncomplicated; Z87.891 Personal history of nicotine dependence; Z88.5 Allergy status to narcotic agent; Z79.899 Other long term (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
CPT/HCPCS: 99282; A9270